=== PATIENT | male | born 1935 ===

== ENCOUNTER 2017-10-30 16:26 | Inpatient (IN) | payer MEDICARE ==
[2017-10-30] MEDS ORDERED: Albuterol-Ipratrop 3 mg / 0.5 (3 ml) UD ONE ×4 (16:45→18:21)
[2017-10-30 17:11] LABS: BASO % 0.8 % (0.0-2.0); EOS % 0.5 % (0.0-4.0); HEMOGLOBIN 9.8 g/dL (12.0-18.0); LYMPH # 0.8 K/uL (1.0-4.3); LYMPH % 13.7 % (20.0-40.0); MEAN CELL VOLUME 95.9 fL (80.0-94.0); MEAN CORPUSCULAR HEMOGLOBIN 32.6 pg (27.0-31.0); MEAN PLATELET VOLUME 6.9 fL (7.2-11.7); MONO # 0.4 K/uL (0.0-0.8); MONO % 7.1 % (0.0-10.0); NEUT # 4.7 K/uL (1.8-7.0); NEUT % 77.9 % (50.0-75.0); RED CELL DISTRIBUTION WIDTH 16.1 % (11.5-14.5); WHITE BLOOD COUNT 6.1 K/uL (4.8-10.8)
[2017-10-30] MEDS ORDERED: Azithromycin 500 MG in Sodium Chloride 0.9% 250 ML IV STA (17:16)
[2017-10-30] MEDS ORDERED: cefTRIAXone IV 1 gm in Dextros 50 ML IV ONE (17:16)
[2017-10-30] MEDS ORDERED: Albuterol-Ipratrop 3 mg / 0.5 (3 ml) UD INH STA ×2 (17:16→18:11)
[2017-10-30] MEDS ORDERED: cefTRIAXone IV 1 gm in Dextros 50 ML IVPB ONE (17:25)
[2017-10-30 17:30] LABS: ALB/GLOB RATIO 0.8 (1.0-2.1); ALBUMIN 3.6 g/dL (3.5-5.0); CALCIUM 8.3 mg/dl (8.6-10.4)
[2017-10-30 17:35] LABS: CK-MB 1.6 ng/mL (0.0-3.38)
[2017-10-30 17:38] LABS: TROPONIN I 0.031 ng/mL (0.00-0.120)
--- NOTE | 2017-10-30 18:11 | C.PDOC ---
History Of Present Illness 82 year old male presents to the ED for evaluation of cough, shortness of breath and lethargy which began 6 days ago. Patient underwent admission in August 2017 for COPD exacerbation. Patient denies fever, chills, chest pain. Time Seen by Provider: 10/30/17 16:55 Chief Complaint (Nursing): Respiratory Distress History Per: Patient History/Exam Limitations: no limitations Onset/Duration Of Symptoms: Days (6) Current Symptoms Are (Timing): Still Present Current Respiratory Medications: See Home Med List Associated Symptoms: denies: Fever, Chills, Chest Pain Additional History Per: Patient Past Medical History Reviewed: Historical Data, Nursing Documentation, Vital Signs Vital Signs: Last Vital Signs Temp 99.5 F 10/30/17 16:35 Pulse 106 H 10/30/17 16:35 Resp 35 H 10/30/17 17:07 BP 155/72 H 10/30/17 16:35 Pulse Ox 95 10/30/17 18:11 - Medical History PMH: Arthritis, COPD, HTN, Hyperlipidemia, Chronic Kidney Disease Surgical History: No Surg Hx - [facility] Procedures EXCISION OF PELVIC SUBCU/FASCIA, OPEN APPROACH (09/06/17) SUPPLEMENT L INGUINAL REGION WITH SYNTH SUB, OPEN APPROACH (09/06/17) Family History: States: Unknown Family Hx - Social History Hx Alcohol Use: No Hx Substance Use: No - Immunization History Hx Tetanus Toxoid Vaccination: No Hx Influenza Vaccination: Yes Hx Pneumococcal Vaccination: Yes Review Of Systems Constitutional: Positive for: Other (lethargy ). Negative for: Fever, Chills Cardiovascular: Negative for: Chest Pain Respiratory: Positive for: Cough, Shortness of Breath Physical Exam - Physical Exam Appears: Non-toxic, Chronically Ill, Other (in mild respiratory distress, wasted ) Skin: Normal Color, Warm, Dry Head: Atraumatic, Normacephalic Eye(s): bilateral: Normal Inspection Ear(s): Bilateral: Normal Nose: Normal, No Discharge Oral Mucosa: Moist Throat: Normal, No Erythema, No Exudate Neck: Supple Chest: Symmetrical, No Deformity, No Tenderness Cardiovascular: Rhythm Regular, No Murmur Respiratory: No Rales, Rhonchi (scattered ), Wheezing (scattered ) Gastrointestinal/Abdominal: Soft, No Tenderness, No Guarding, No Rebound Extremity: Normal ROM, Capillary Refill (less than 2 seconds ), No Swelling Neurological/Psych: Oriented x3, Normal Speech, Normal Cognition ED Course And Treatment - Laboratory Results Result Diagrams: 10/30/17 17:08 10/30/17 17:08 Lab Interpretation: Normal (trop/bnp neg.) ECG: Interpreted By Me ECG Rhythm: Sinus Rhythm ECG Interpretation: Normal O2 Sat by Pulse Oximetry: 95 (on RA) Pulse Ox Interpretation: Abnormal (probably baseline) - Radiology CXR: Interpreted by Me CXR Interpretation: Yes: Infiltrates (+ b/l lower lobe infiltrates) Progress Note: abx, solumedrol/duonebs Reevaluation Time: 18:10 Reassessment Condition: Improved - Physician Consult Information Outcome Of Conversation: 1800: d/w Dr. Cifuentes- prior PMD (though Dr. Miranda listed as PMD) ok to admit. Disposition Doctor Will See Patient In The: Hospital Counseled Patient/Family Regarding: Studies Performed, Diagnosis - Disposition Disposition: HOSPITALIZED Disposition Time: 18:11 Condition: FAIR Forms: [employer] (Malay) - Clinical Impression Clinical Impression: COPD (chronic obstructive pulmonary disease) - Scribe Statement The provider has reviewed the documentation as recorded by the Scribe (Jaky Carrillo) Provider Attestation: All medical record entries made by the Scribe were at my direction and personally dictated by me. I have reviewed the chart and agree that the record accurately reflects my personal performance of the history, physical exam, medical decision making, and the department course for this patient. I have also personally directed, reviewed, and agree with the discharge instructions and disposition.
[2017-10-30] MEDS ORDERED: Ipratropium 0.02% Inhal Soln (0.5 mg/2.5 ml) UD IH ONE (18:21)
[2017-10-31] MEDS: Azithromycin 500 MG in Sodium Chloride 0.9% 250 ML IVPB SCH (09:38)
[2017-10-31] MEDS: Pantoprazole 40 mg EC Tab PO SCH (09:39)
[2017-10-31] MEDS: (Novolin R) Insulin Human Regular 100 units/ml vial SC SCH ×4 (09:39→21:24)
[2017-10-31] MEDS: Enoxaparin 40 mg Syringe SC SCH (09:40)
[2017-10-31] MEDS ORDERED: LISINOPRIL PO SCH (10:00)
[2017-10-31] MEDS ORDERED: [UNRECOGNIZED DRUG - OTHER] PO SCH (10:00)
[2017-10-31] MEDS ORDERED: HYDROCHLOROTHIAZIDE PO SCH (10:00)
[2017-10-31] MEDS: Albuterol-Ipratrop 3 mg / 0.5 (3 ml) UD IH SCH ×3 (11:34→20:14)
--- NOTE | 2017-10-31 11:56 | RAD ---
PROCEDURE: CHEST RADIOGRAPH, 1 VIEW HISTORY: SOB COMPARISON: None available. FINDINGS: LUNGS: Hyperinflation with coarsened/ increased interstitial markings and possible underlying fibrosis. Findings may represent COPD or and or emphysema. Bibasilar atelectasis/ scarring. . PLEURA: No pneumothorax or pleural fluid seen. CARDIOVASCULAR: Normal. OSSEOUS STRUCTURES: No significant abnormalities. VISUALIZED UPPER ABDOMEN: Normal. OTHER FINDINGS: None. IMPRESSION: Hyperinflation with coarsened/ increased interstitial markings and possible underlying fibrosis. Findings may represent COPD or and or emphysema. Bibasilar atelectasis/ scarring. .
--- NOTE | 2017-10-31 23:57 | CP.PCM.HP ---
History of Present Illness - History of Present Illness History of Present Illness: History Of Present Illness 82 year old male presents to the ED for evaluation of cough, shortness of breath and lethargy which began 6 days ago. Patient underwent admission in August 2017 for COPD exacerbation. Patient denies fever, chills, chest pain. Past Patient History - Infectious Disease Hx of Infectious Diseases: None - Past Medical History & Family History Past Medical History?: Yes - Past Social History Smoking Status: Former Smoker - CARDIAC Hx Hypertension: Yes - PULMONARY Hx Chronic Obstructive Pulmonary Disease (COPD): Yes - HEENT Other/Comment: wears glasses - RENAL Hx Chronic Kidney Disease: Yes - ENDOCRINE/METABOLIC Hx Endocrine Disorders: Yes Hx Diabetes Mellitus Type 2: Yes - HEMATOLOGICAL/ONCOLOGICAL Hx Blood Transfusions: Yes - MUSCULOSKELETAL/RHEUMATOLOGICAL Hx Falls: No - GASTROINTESTINAL Hx Gastrointestinal Disorders: Yes Other/Comment: HERNIA 3 weeks ago - PSYCHIATRIC Hx Substance Use: No - SURGICAL HISTORY Hx Surgeries: Yes Hx Herniorrhaphy: Yes (RIGHT INGUINAL) Other/Comment: patient didnt give no further information at this time - ANESTHESIA Hx Anesthesia: Yes Hx Anesthesia Reactions: No Hx Malignant Hyperthermia: No Has any member of the family had a problem w/ anesthesia?: No Meds Allergies/Adverse Reactions: Allergies Allergy/AdvReac Type Severity Reaction Status Date / Time aspirin Allergy Severe PAIN Verified 10/31/17 03:36 Results - Vital Signs Recent Vital Signs: Last Vital Signs Temp 97.3 F L 10/31/17 15:00 Pulse 75 10/31/17 16:07 Resp 20 10/31/17 15:00 BP 122/62 10/31/17 15:00 Pulse Ox 96 10/31/17 15:00 - Labs Result Diagrams: 10/30/17 17:08 10/30/17 17:08 Labs: Laboratory Results - last 24 hr 10/31/17 10/31/17 10/31/17 07:02 12:15 17:06 POC Glucose (mg/dL) 325 H 289 H 220 H 10/31/17 21:20 POC Glucose (mg/dL) 224 H
[2017-11-01 07:06] LABS: IRON 58 ug/dL (49-181)
[2017-11-01 07:16] LABS: % IRON SATURATION 30 (20-55); TOTAL IRON BINDING CAPACITY 196 ug/dL (250-450)
[2017-11-01] MEDS: Albuterol-Ipratrop 3 mg / 0.5 (3 ml) UD IH SCH ×4 (07:37→19:25)
[2017-11-01] MEDS: (Novolin R) Insulin Human Regular 100 units/ml vial SC SCH ×4 (07:56→21:27)
[2017-11-01] MEDS: Enoxaparin 40 mg Syringe SC SCH (09:35)
[2017-11-01] MEDS: Azithromycin 500 MG in Sodium Chloride 0.9% 250 ML IVPB SCH (09:35)
[2017-11-01] MEDS: Pantoprazole 40 mg EC Tab PO SCH (09:37)
--- NOTE | 2017-11-01 12:26 | CARD ---
APPROVED REPORT EKG Measurement Heart [id number] <Conclusion> Normal sinus rhythm Nonspecific T wave abnormality Abnormal ECG
--- NOTE | 2017-11-01 16:56 | CP.PCM.CON ---
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 Patient denied fever, chills or chest pain in the ED. Received antibiotics, solumedrol and duonebs with improvement. He was admitted to Dr. Cifuentes's service. Today the patient was seen and examined at bedside on the med-surg floors. He reports that his breathing has improved and he has no complaints at this time. Wheezing was heard on auscultation and the patient was noticeably tremulous. PMHx: COPD, arthritis, HTN, HLD, CKD PSH: inguinal hernia repair Allergies: Aspirin SH: formerly worked in a [employer] for 29 years, 20+ year smoking hx quit in his early 40s, denies alcohol and drug use Assessment and Plan: 1. COPD - Saturatin-95% on 2L NC - CXR 10/31: hyperinflation with coarsened/increased interstitial markings and possible underlying fibrosis. - nebulizer treatments - continue with duonebs - continue IV antibiotics - ABG 2. ILD - continue solumedrol - consider repeat CT Chest Past Patient History - Infectious Disease Hx of Infectious Diseases: None - Past Medical History & Family History Past Medical History?: Yes - Past Social History Smoking Status: Former Smoker - CARDIAC Hx Hypertension: Yes - PULMONARY Hx Chronic Obstructive Pulmonary Disease (COPD): Yes - HEENT Other/Comment: wears glasses - RENAL Hx Chronic Kidney Disease: Yes - ENDOCRINE/METABOLIC Hx Endocrine Disorders: Yes Hx Diabetes Mellitus Type 2: Yes - HEMATOLOGICAL/ONCOLOGICAL Hx Blood Transfusions: Yes - MUSCULOSKELETAL/RHEUMATOLOGICAL Hx Falls: No - GASTROINTESTINAL Hx Gastrointestinal Disorders: Yes Other/Comment: HERNIA 3 weeks ago - PSYCHIATRIC Hx Substance Use: No - SURGICAL HISTORY Hx Surgeries: Yes Hx Herniorrhaphy: Yes (RIGHT INGUINAL) Other/Comment: patient didnt give no further information at this time - ANESTHESIA Hx Anesthesia: Yes Hx Anesthesia Reactions: No Hx Malignant Hyperthermia: No Has any member of the family had a problem w/ anesthesia?: No Meds Allergies/Adverse Reactions: Allergies Allergy/AdvReac Type Severity Reaction Status Date / Time aspirin Allergy Severe PAIN Verified 10/31/17 03:36 - Medications Medications: Current Medications Albuterol/Ipratropium (Duoneb 3 Mg/0.5 Mg (3 Ml) Ud) 3 ml IH RQID [facility] Last Admin: 11/01/17 11:08 Dose: 3 ml Amlodipine Besylate (Norvasc) 5 mg PO DAILY [facility] Last Admin: 11/01/17 09:36 Dose: 5 mg Doxazosin Mesylate (Cardura) 4 mg PO HS [facility] Last Admin: 10/31/17 21:24 Dose: 4 mg Enoxaparin Sodium (Lovenox) 40 mg SC DAILY [facility] Last Admin: 11/01/17 09:35 Dose: 40 mg Folic Acid (Folic Acid) 1 mg PO DAILY [facility] Last Admin: 11/01/17 09:36 Dose: 1 mg Glimepiride (Amaryl) 1 mg PO ACB [facility] Last Admin: 11/01/17 07:56 Dose: 1 mg Hydrochlorothiazide (Hydrodiuril) 25 mg PO DAILY [facility] Last Admin: 11/01/17 09:36 Dose: 25 mg Azithromycin 500 mg/ Sodium (Chloride) 250 mls @ 250 mls/hr IVPB DAILY [facility] PRN Reason: Protocol Last Admin: 11/01/17 09:35 Dose: 250 mls/hr Ceftriaxone Sodium 1 gm/ (Sodium Chloride) 100 mls @ 100 mls/hr IVPB Q24H [facility] PRN Reason: Protocol Last Admin: 11/01/17 12:25 Dose: 100 mls/hr Insulin Human Regular (Novolin R) 0 unit SC ACHS [facility] PRN Reason: Protocol Last Admin: 11/01/17 12:26 Dose: 4 unit Lisinopril (Zestril) 20 mg PO DAILY [facility] Last Admin: 11/01/17 09:36 Dose: 20 mg Methylprednisolone (Solu-Medrol) 60 mg IVP Q12H [facility] Last Admin: 11/01/17 09:36 Dose: 60 mg Pantoprazole Sodium (Protonix Ec Tab) 40 mg PO DAILY [facility] Last Admin: 11/01/17 09:37 Dose: 40 mg Rosuvastatin Calcium (Crestor) 10 mg PO HS [facility] Last Admin: 10/31/17 21:24 Dose: 10 mg Results - Vital Signs Recent Vital Signs: Last Vital Signs Temp 97.3 F L 11/01/17 16:00 Pulse 80 11/01/17 16:08 Resp 20 11/01/17 16:00 BP 131/64 11/01/17 16:00 Pulse Ox 93 L 11/01/17 16:00 - Labs Result Diagrams: 10/30/17 17:08 10/30/17 17:08 Labs: Laboratory Results - last 24 hr 10/31/17 10/31/17 11/01/17 17:06 21:20 06:45 POC Glucose (mg/dL) 220 H 224 H Iron 58 TIBC 196 L % Saturation 30 11/01/17 11/01/17 11/01/17 06:57 11:35 16:37 POC Glucose (mg/dL) 336 H 272 H 219 H Iron TIBC % Saturation
--- NOTE | 2017-11-02 01:34 | CP.PCM.PN ---
Subjective - Date & Time of Evaluation Date of Evaluation: 11/01/17 Time of Evaluation: 19:00 - Subjective Subjective: patient was seen and examined at bedside on the [facility] floors. He reports that his breathing has improved and he has no complaints at this time. Wheezing was heard on auscultation and the patient was noticeably tremulous. Objective - Vital Signs/Intake and Output Vital Signs (last 24 hours): Temp Pulse Resp BP Pulse Ox 97.3 F L 80 16 131/64 98 11/01/17 16:00 11/01/17 16:08 11/01/17 20:11 11/01/17 16:00 11/01/17 20:11 Intake and Output: 11/01/17 11/02/17 18:59 06:59 Intake Total 700 500 Balance 700 500 - Medications Medications: Current Medications Albuterol/Ipratropium (Duoneb 3 Mg/0.5 Mg (3 Ml) Ud) 3 ml IH RQID [facility] Last Admin: 11/01/17 19:25 Dose: 3 ml Amlodipine Besylate (Norvasc) 5 mg PO DAILY [facility] Last Admin: 11/01/17 09:36 Dose: 5 mg Doxazosin Mesylate (Cardura) 4 mg PO HS [facility] Last Admin: 11/01/17 21:28 Dose: 4 mg Enoxaparin Sodium (Lovenox) 40 mg SC DAILY [facility] Last Admin: 11/01/17 09:35 Dose: 40 mg Folic Acid (Folic Acid) 1 mg PO DAILY [facility] Last Admin: 11/01/17 09:36 Dose: 1 mg Glimepiride (Amaryl) 1 mg PO ACB [facility] Last Admin: 11/01/17 07:56 Dose: 1 mg Hydrochlorothiazide (Hydrodiuril) 25 mg PO DAILY [facility] Last Admin: 11/01/17 09:36 Dose: 25 mg Azithromycin 500 mg/ Sodium (Chloride) 250 mls @ 250 mls/hr IVPB DAILY [facility] PRN Reason: Protocol Last Admin: 11/01/17 09:35 Dose: 250 mls/hr Ceftriaxone Sodium 1 gm/ (Sodium Chloride) 100 mls @ 100 mls/hr IVPB Q24H [facility] PRN Reason: Protocol Last Admin: 11/01/17 12:25 Dose: 100 mls/hr Insulin Human Regular (Novolin R) 0 unit SC ACHS [facility] PRN Reason: Protocol Last Admin: 11/01/17 21:27 Dose: Not Given Lisinopril (Zestril) 20 mg PO DAILY [facility] Last Admin: 11/01/17 09:36 Dose: 20 mg Methylprednisolone (Solu-Medrol) 60 mg IVP Q12H [facility] Last Admin: 11/01/17 21:28 Dose: 60 mg Pantoprazole Sodium (Protonix Ec Tab) 40 mg PO DAILY [facility] Last Admin: 11/01/17 09:37 Dose: 40 mg Rosuvastatin Calcium (Crestor) 10 mg PO HS [facility] Last Admin: 11/01/17 21:28 Dose: 10 mg - Labs Labs: 10/30/17 17:08 10/30/17 17:08 Assessment and Plan (1) COPD (chronic obstructive pulmonary disease) Assessment & Plan: 1. COPD - Saturatin-95% on 2L NC - CXR 5/6: hyperinflation with coarsened/increased interstitial markings and possible underlying fibrosis. - nebulizer treatments - continue with duonebs - continue IV antibiotics - ABG 2. ILD - continue solumedrol - consider repeat CT Chest Status: Acute (2) Cardiomyopathy Status: Acute (3) ILD (interstitial lung disease) Status: Acute (4) Renal insufficiency Status: Acute
[2017-11-02] MEDS: Albuterol-Ipratrop 3 mg / 0.5 (3 ml) UD IH SCH ×4 (07:42→20:29)
[2017-11-02] MEDS: (Novolin R) Insulin Human Regular 100 units/ml vial SC SCH ×4 (08:10→21:14)
[2017-11-02] MEDS: Azithromycin 500 MG in Sodium Chloride 0.9% 250 ML IVPB SCH (10:50)
[2017-11-02] MEDS: Pantoprazole 40 mg EC Tab PO SCH (10:52)
[2017-11-02] MEDS: Enoxaparin 30 mg Syringe SC SCH (10:53)
--- NOTE | 2017-11-02 16:41 | CP.PCM.PN ---
Subjective - Date & Time of Evaluation Date of Evaluation: 11/02/17 Time of Evaluation: 10:00 - Subjective Subjective: Patient seen and examined at bedside. He reports that his breathing has improved and again he has no complaints at this time. Wheezing was heard on auscultation but improved. Assessment and Plan: 1. COPD - Saturatin% on 2L NC - CXR 5/6: hyperinflation with coarsened/increased interstitial markings and possible underlying fibrosis. - continue with duonebs - continue IV antibiotics - ABG 2. ILD - continue solumedrol - consider repeat CT Chest Objective - Vital Signs/Intake and Output Vital Signs (last 24 hours): Temp Pulse Resp BP Pulse Ox 97.5 F L 89 18 136/64 96 11/02/17 07:25 11/02/17 12:00 11/02/17 07:25 11/02/17 07:25 11/02/17 07:25 Intake and Output: 11/02/17 11/02/17 06:59 18:59 Intake Total 500 750 Output Total 250 Balance 250 750 - Medications Medications: Current Medications Albuterol/Ipratropium (Duoneb 3 Mg/0.5 Mg (3 Ml) Ud) 3 ml IH RQID [facility] Last Admin: 11/02/17 16:11 Dose: 3 ml Doxazosin Mesylate (Cardura) 4 mg PO HS [facility] Last Admin: 11/01/17 21:28 Dose: 4 mg Enoxaparin Sodium (Lovenox) 30 mg SC DAILY [facility] Last Admin: 11/02/17 10:53 Dose: 30 mg Folic Acid (Folic Acid) 1 mg PO DAILY [facility] Last Admin: 11/02/17 10:52 Dose: 1 mg Glimepiride (Amaryl) 1 mg PO ACB [facility] Last Admin: 11/02/17 08:09 Dose: 1 mg Hydrochlorothiazide (Hydrodiuril) 25 mg PO DAILY [facility] Last Admin: 11/02/17 10:52 Dose: 25 mg Azithromycin 500 mg/ Sodium (Chloride) 250 mls @ 250 mls/hr IVPB DAILY [facility] PRN Reason: Protocol Last Admin: 11/02/17 10:50 Dose: 250 mls/hr Ceftriaxone Sodium 1 gm/ (Sodium Chloride) 100 mls @ 100 mls/hr IVPB Q24H [facility] PRN Reason: Protocol Last Admin: 11/02/17 12:59 Dose: 100 mls/hr Insulin Human Regular (Novolin R) 0 unit SC ACHS [facility] PRN Reason: Protocol Last Admin: 11/02/17 12:59 Dose: 8 unit Lisinopril (Zestril) 20 mg PO DAILY [facility] Last Admin: 11/02/17 10:52 Dose: 20 mg Methylprednisolone (Solu-Medrol) 60 mg IVP Q12H [facility] Last Admin: 11/02/17 10:52 Dose: 60 mg Pantoprazole Sodium (Protonix Ec Tab) 40 mg PO DAILY [facility] Last Admin: 11/02/17 10:52 Dose: 40 mg Rosuvastatin Calcium (Crestor) 10 mg PO HS [facility] Last Admin: 11/01/17 21:28 Dose: 10 mg - Labs Labs: 10/30/17 17:08 10/30/17 17:08
--- NOTE | 2017-11-02 22:29 | CP.PCM.PN ---
Subjective - Date & Time of Evaluation Date of Evaluation: 11/02/17 Time of Evaluation: 18:00 - Subjective Subjective: Pt seen and examined at bedside Objective - Vital Signs/Intake and Output Vital Signs (last 24 hours): Temp Pulse Resp BP Pulse Ox 97.6 F 86 20 123/57 L 100 11/02/17 15:00 11/02/17 16:30 11/02/17 15:00 11/02/17 15:00 11/02/17 15:00 Intake and Output: 11/02/17 11/03/17 18:59 06:59 Intake Total 750 Output Total 750 Balance 750 -750 - Medications Medications: Current Medications Albuterol/Ipratropium (Duoneb 3 Mg/0.5 Mg (3 Ml) Ud) 3 ml IH RQID [facility] Last Admin: 11/02/17 20:29 Dose: 3 ml Doxazosin Mesylate (Cardura) 4 mg PO HS [facility] Last Admin: 11/02/17 21:13 Dose: 4 mg Enoxaparin Sodium (Lovenox) 30 mg SC DAILY [facility] Last Admin: 11/02/17 10:53 Dose: 30 mg Folic Acid (Folic Acid) 1 mg PO DAILY [facility] Last Admin: 11/02/17 10:52 Dose: 1 mg Glimepiride (Amaryl) 1 mg PO ACB [facility] Last Admin: 11/02/17 08:09 Dose: 1 mg Hydrochlorothiazide (Hydrodiuril) 25 mg PO DAILY [facility] Last Admin: 11/02/17 10:52 Dose: 25 mg Azithromycin 500 mg/ Sodium (Chloride) 250 mls @ 250 mls/hr IVPB DAILY [facility] PRN Reason: Protocol Last Admin: 11/02/17 10:50 Dose: 250 mls/hr Ceftriaxone Sodium 1 gm/ (Sodium Chloride) 100 mls @ 100 mls/hr IVPB Q24H [facility] PRN Reason: Protocol Last Admin: 11/02/17 12:59 Dose: 100 mls/hr Insulin Human Regular (Novolin R) 0 unit SC ACHS [facility] PRN Reason: Protocol Last Admin: 11/02/17 21:14 Dose: Not Given Lisinopril (Zestril) 20 mg PO DAILY [facility] Last Admin: 11/02/17 10:52 Dose: 20 mg Methylprednisolone (Solu-Medrol) 60 mg IVP Q12H [facility] Last Admin: 11/02/17 21:13 Dose: 60 mg Pantoprazole Sodium (Protonix Ec Tab) 40 mg PO DAILY [facility] Last Admin: 11/02/17 10:52 Dose: 40 mg Rosuvastatin Calcium (Crestor) 10 mg PO HS [facility] Last Admin: 11/02/17 21:13 Dose: 10 mg - Labs Labs: 10/30/17 17:08 10/30/17 17:08 Assessment and Plan (1) COPD (chronic obstructive pulmonary disease) Status: Acute (2) Cardiomyopathy Status: Acute (3) ILD (interstitial lung disease) Status: Acute (4) Renal insufficiency Status: Acute
[2017-11-03] MEDS: Albuterol-Ipratrop 3 mg / 0.5 (3 ml) UD IH SCH ×4 (07:54→20:16)
[2017-11-03] MEDS: (Novolin R) Insulin Human Regular 100 units/ml vial SC SCH ×4 (08:30→21:04)
[2017-11-03] MEDS: Pantoprazole 40 mg EC Tab PO SCH (10:28)
[2017-11-03] MEDS: Enoxaparin 30 mg Syringe SC SCH (10:29)
[2017-11-03] MEDS: Azithromycin 500 MG in Sodium Chloride 0.9% 250 ML IVPB SCH (10:30)
--- NOTE | 2017-11-03 15:36 | CP.PCM.PN ---
Subjective - Date & Time of Evaluation Date of Evaluation: 11/03/17 Time of Evaluation: 10:00 - Subjective Subjective: Patient seen and examined at bedside. He reports that his breathing has improved and again he has no complaints at this time. Patient appears to be improving and reports that he was able to ambulate with physical therapy around the unit this morning. Assessment and Plan: 1. COPD - Saturatin%-100% on 2L NC - CXR /6: hyperinflation with coarsened/increased interstitial markings and possible underlying fibrosis. - nebulizer treatments - continue IV antibiotics - ABG 2. ILD - continue solumedrol Objective - Vital Signs/Intake and Output Vital Signs (last 24 hours): Temp Pulse Resp BP Pulse Ox 97.6 F 85 18 142/66 97 11/03/17 07:30 11/03/17 12:00 11/03/17 07:30 11/03/17 09:40 11/03/17 07:30 Intake and Output: 11/03/17 11/03/17 06:59 18:59 Output Total 750 Balance -750 - Medications Medications: Current Medications Albuterol/Ipratropium (Duoneb 3 Mg/0.5 Mg (3 Ml) Ud) 3 ml IH RQID [facility] Last Admin: 11/03/17 11:09 Dose: 3 ml Doxazosin Mesylate (Cardura) 4 mg PO HS [facility] Last Admin: 11/02/17 21:13 Dose: 4 mg Enoxaparin Sodium (Lovenox) 30 mg SC DAILY [facility] Last Admin: 11/03/17 10:29 Dose: 30 mg Folic Acid (Folic Acid) 1 mg PO DAILY [facility] Last Admin: 11/03/17 10:28 Dose: 1 mg Glimepiride (Amaryl) 1 mg PO ACB [facility] Last Admin: 11/03/17 08:30 Dose: 1 mg Hydrochlorothiazide (Hydrodiuril) 25 mg PO DAILY [facility] Last Admin: 11/03/17 10:28 Dose: 25 mg Azithromycin 500 mg/ Sodium (Chloride) 250 mls @ 250 mls/hr IVPB DAILY [facility] PRN Reason: Protocol Last Admin: 11/03/17 10:30 Dose: 250 mls/hr Ceftriaxone Sodium 1 gm/ (Sodium Chloride) 100 mls @ 100 mls/hr IVPB Q24H [facility] PRN Reason: Protocol Last Admin: 11/03/17 12:31 Dose: 100 mls/hr Insulin Human Regular (Novolin R) 0 unit SC ACHS [facility] PRN Reason: Protocol Last Admin: 11/03/17 12:30 Dose: 4 unit Lisinopril (Zestril) 20 mg PO DAILY [facility] Last Admin: 11/03/17 10:28 Dose: 20 mg Methylprednisolone (Solu-Medrol) 60 mg IVP Q12H [facility] Last Admin: 11/03/17 10:29 Dose: 60 mg Pantoprazole Sodium (Protonix Ec Tab) 40 mg PO DAILY [facility] Last Admin: 11/03/17 10:28 Dose: 40 mg Rosuvastatin Calcium (Crestor) 10 mg PO HS [facility] Last Admin: 11/02/17 21:13 Dose: 10 mg - Labs Labs: 10/30/17 17:08 10/30/17 17:08
[2017-11-04 01:24] VITALS: RESP 20
--- NOTE | 2017-11-04 04:41 | CP.PCM.PN ---
Subjective - Date & Time of Evaluation Date of Evaluation: 11/03/17 Time of Evaluation: 18:00 - Subjective Subjective: Pt seen and examined, less short of breath, afberile Objective - Vital Signs/Intake and Output Vital Signs (last 24 hours): Temp Pulse Resp BP Pulse Ox 97.6 F 92 H 20 151/72 H 97 11/03/17 23:10 11/03/17 23:41 11/03/17 23:10 11/03/17 23:10 11/03/17 23:10 Intake and Output: 11/03/17 11/04/17 18:59 06:59 Intake Total 750 Output Total 600 Balance 150 - Medications Medications: Current Medications Albuterol/Ipratropium (Duoneb 3 Mg/0.5 Mg (3 Ml) Ud) 3 ml IH RQID [facility] Last Admin: 11/03/17 20:16 Dose: 3 ml Doxazosin Mesylate (Cardura) 4 mg PO HS [facility] Last Admin: 11/03/17 21:02 Dose: 4 mg Enoxaparin Sodium (Lovenox) 30 mg SC DAILY [facility] Last Admin: 11/03/17 10:29 Dose: 30 mg Folic Acid (Folic Acid) 1 mg PO DAILY [facility] Last Admin: 11/03/17 10:28 Dose: 1 mg Glimepiride (Amaryl) 1 mg PO ACB [facility] Last Admin: 11/03/17 08:30 Dose: 1 mg Hydrochlorothiazide (Hydrodiuril) 25 mg PO DAILY [facility] Last Admin: 11/03/17 10:28 Dose: 25 mg Azithromycin 500 mg/ Sodium (Chloride) 250 mls @ 250 mls/hr IVPB DAILY [facility] PRN Reason: Protocol Last Admin: 11/03/17 10:30 Dose: 250 mls/hr Ceftriaxone Sodium 1 gm/ (Sodium Chloride) 100 mls @ 100 mls/hr IVPB Q24H [facility] PRN Reason: Protocol Last Admin: 11/03/17 12:31 Dose: 100 mls/hr Insulin Human Regular (Novolin R) 0 unit SC ACHS [facility] PRN Reason: Protocol Last Admin: 11/03/17 21:04 Dose: Not Given Lisinopril (Zestril) 20 mg PO DAILY [facility] Last Admin: 11/03/17 10:28 Dose: 20 mg Methylprednisolone (Solu-Medrol) 60 mg IVP Q12H [facility] Last Admin: 11/03/17 21:01 Dose: 60 mg Pantoprazole Sodium (Protonix Ec Tab) 40 mg PO DAILY [facility] Last Admin: 11/03/17 10:28 Dose: 40 mg Rosuvastatin Calcium (Crestor) 10 mg PO HS [facility] Last Admin: 11/03/17 21:01 Dose: 10 mg - Labs Labs: 10/30/17 17:08 10/30/17 17:08 - Constitutional Appears: No Acute Distress - Head Exam Head Exam: ATRAUMATIC, NORMAL INSPECTION, NORMOCEPHALIC - Eye Exam Eye Exam: EOMI, Normal appearance, PERRL Pupil Exam: NORMAL ACCOMODATION, PERRL - Respiratory Exam Respiratory Exam: Clear to Ausculation Bilateral, NORMAL BREATHING PATTERN - Cardiovascular Exam Cardiovascular Exam: REGULAR RHYTHM, +S1, +S2. absent: Murmur - GI/Abdominal Exam GI & Abdominal Exam: Soft, Normal Bowel Sounds. absent: Tenderness - Rectal Exam Rectal Exam: Deferred Assessment and Plan (1) COPD (chronic obstructive pulmonary disease) Status: Acute (2) Cardiomyopathy Status: Acute (3) ILD (interstitial lung disease) Status: Acute (4) Renal insufficiency Status: Acute
[2017-11-04] MEDS: Albuterol-Ipratrop 3 mg / 0.5 (3 ml) UD IH SCH ×3 (07:42→15:47)
[2017-11-04] MEDS: (Novolin R) Insulin Human Regular 100 units/ml vial SC SCH ×2 (08:30→12:28)
[2017-11-04] MEDS: Azithromycin 500 MG in Sodium Chloride 0.9% 250 ML IVPB SCH (11:00)
[2017-11-04] MEDS: Enoxaparin 30 mg Syringe SC SCH (11:00)
[2017-11-04] MEDS: Pantoprazole 40 mg EC Tab PO SCH (11:00)
--- NOTE | 2017-11-04 12:33 | CP.PCM.PN ---
Subjective - Date & Time of Evaluation Date of Evaluation: 11/04/17 Time of Evaluation: 12:26 - Subjective Subjective: PT SEEN AND EVAL'D BY DR. SCHREIBER; CLEARED FOR D/C HOME TODAY. PT FOR ABG TO EVALUATE FOR HOME O2, HOWEVER, HE IS REFUSING TO HAVE ABG DONE (STATING "IT HURTS TOO MUCH") AND REFUSING HOME O2 (STATING "I DON'T NEED IT, I'M FINE WITHOUT IT, AND I DON'T WANT THAT TANK IN MY HOME"). I DISCUSSED AT LENGTH WITH THE PT BENEFITS OF HOME O2 IF HE QUALIFIES FOR IT, HOWEVER, HE REPEATEDLY DENIES. I HAVE MADE DR. SCHREIBER OF THIS. PT TO BE D/C HOME THIS AFTERNOON AND WILL F/U WITH DR. SCHREIBER IN THE OFFICE IN 1 WEEK. PT STATES HE HAS ALL HIS HOME MEDS; RX FOR PO ABX, FLORASTOR AND MEDROL PACK SENT TO PT'S PHARMACY. NO FURTHER ORDERS. -FOLLOW UP WITH DR. SCHREIBER IN THE OFFICE WITHIN 1 WEEK---CALL THE OFFICE FOR AN APPOINTMENT TIME. -FOLLOW UP WITH DR. PEARSON OR YOUR LUNG DOCTOR IN THE OFFICE WITHIN 2-3 WEEKS--- CALL THE OFFICE FOR AN APPOINTMENT TIME. -CONTINUE HOME MEDICATIONS USUAL. -NEW PRESCRIPTIONS INCLUDE: 1) MEDROL--STEROID FOR YOUR BREATHING--FOLLOW THE DIRECTIONS ON THE BOX UNTIL YOU COMPLETE THE STEROID. 2) AMOXIL 500 MG (ANTIBIOTIC) TAKE TWICE A DAY (MORNING AND EVENING) FOR 7 DAYS. 3) FLORASTOR (VITAMIN FOR YOUR STOMACH WHILE ON ANTIBIOTICS) TAKE TWICE A DAY (MORNING AND EVENING) FOR 7 DAYS. -FOR FURTHER CONCERNS OR QUESTIONS, CONTACT DR. SCHREIBER'S OFFICE. Objective - Vital Signs/Intake and Output Vital Signs (last 24 hours): Temp Pulse Resp BP Pulse Ox 98.2 F 99 H 20 143/71 95 11/04/17 09:13 11/04/17 11:00 11/04/17 09:13 11/04/17 11:00 11/04/17 09:13 - Medications Medications: Current Medications Albuterol/Ipratropium (Duoneb 3 Mg/0.5 Mg (3 Ml) Ud) 3 ml IH RQID [facility] Last Admin: 11/04/17 11:16 Dose: 3 ml Doxazosin Mesylate (Cardura) 4 mg PO HS [facility] Last Admin: 11/03/17 21:02 Dose: 4 mg Enoxaparin Sodium (Lovenox) 30 mg SC DAILY [facility] Last Admin: 11/04/17 11:00 Dose: 30 mg Folic Acid (Folic Acid) 1 mg PO DAILY [facility] Last Admin: 11/04/17 11:00 Dose: 1 mg Glimepiride (Amaryl) 1 mg PO ACB [facility] Last Admin: 11/04/17 08:46 Dose: 1 mg Hydrochlorothiazide (Hydrodiuril) 25 mg PO DAILY [facility] Last Admin: 11/04/17 11:00 Dose: 25 mg Azithromycin 500 mg/ Sodium (Chloride) 250 mls @ 250 mls/hr IVPB DAILY [facility] PRN Reason: Protocol Last Admin: 11/04/17 11:00 Dose: 250 mls/hr Ceftriaxone Sodium 1 gm/ (Sodium Chloride) 100 mls @ 100 mls/hr IVPB Q24H [facility] PRN Reason: Protocol Last Admin: 11/03/17 12:31 Dose: 100 mls/hr Insulin Human Regular (Novolin R) 0 unit SC [facility] PRN Reason: Protocol Last Admin: 11/04/17 08:30 Dose: 6 unit Lisinopril (Zestril) 20 mg PO DAILY [facility] Last Admin: 11/04/17 11:07 Dose: 20 mg Methylprednisolone (Solu-Medrol) 60 mg IVP Q12H [facility] Last Admin: 11/04/17 11:00 Dose: 60 mg Pantoprazole Sodium (Protonix Ec Tab) 40 mg PO DAILY [facility] Last Admin: 11/04/17 11:00 Dose: 40 mg Rosuvastatin Calcium (Crestor) 10 mg PO HS [facility] Last Admin: 11/03/17 21:01 Dose: 10 mg - Labs Labs: 10/30/17 17:08 10/30/17 17:08
--- NOTE | 2017-11-04 15:57 | CP.PCM.PN ---
Subjective - Date & Time of Evaluation Date of Evaluation: 11/04/17 Time of Evaluation: 08:00 - Subjective Subjective: patient seen and examined Patient states breathing is much improved Does not want home oxygen Able to walk without shortness of breath Objective - Vital Signs/Intake and Output Vital Signs (last 24 hours): Temp Pulse Resp BP Pulse Ox 98.2 F 100 H 20 143/71 95 11/04/17 09:13 11/04/17 12:00 11/04/17 09:13 11/04/17 11:00 11/04/17 09:13 Intake and Output: 11/04/17 11/04/17 06:59 18:59 Intake Total 750 Output Total 700 Balance 50 - Medications Medications: Current Medications Albuterol/Ipratropium (Duoneb 3 Mg/0.5 Mg (3 Ml) Ud) 3 ml IH RQID [facility] Last Admin: 11/04/17 15:47 Dose: 3 ml Doxazosin Mesylate (Cardura) 4 mg PO HS [facility] Last Admin: 11/03/17 21:02 Dose: 4 mg Enoxaparin Sodium (Lovenox) 30 mg SC DAILY [facility] Last Admin: 11/04/17 11:00 Dose: 30 mg Folic Acid (Folic Acid) 1 mg PO DAILY [facility] Last Admin: 11/04/17 11:00 Dose: 1 mg Glimepiride (Amaryl) 1 mg PO ACB [facility] Last Admin: 11/04/17 08:46 Dose: 1 mg Hydrochlorothiazide (Hydrodiuril) 25 mg PO DAILY [facility] Last Admin: 11/04/17 11:00 Dose: 25 mg Azithromycin 500 mg/ Sodium (Chloride) 250 mls @ 250 mls/hr IVPB DAILY [facility] PRN Reason: Protocol Last Admin: 11/04/17 11:00 Dose: 250 mls/hr Ceftriaxone Sodium 1 gm/ (Sodium Chloride) 100 mls @ 100 mls/hr IVPB Q24H [facility] PRN Reason: Protocol Last Admin: 11/04/17 13:00 Dose: 100 mls/hr Insulin Human Regular (Novolin R) 0 unit SC ACHS [facility] PRN Reason: Protocol Last Admin: 11/04/17 12:28 Dose: 3 unit Lisinopril (Zestril) 20 mg PO DAILY [facility] Last Admin: 11/04/17 11:07 Dose: 20 mg Methylprednisolone (Solu-Medrol) 60 mg IVP Q12H [facility] Last Admin: 11/04/17 11:00 Dose: 60 mg Pantoprazole Sodium (Protonix Ec Tab) 40 mg PO DAILY [facility] Last Admin: 11/04/17 11:00 Dose: 40 mg Rosuvastatin Calcium (Crestor) 10 mg PO HS [facility] Last Admin: 11/03/17 21:01 Dose: 10 mg - Labs Labs: 10/30/17 17:08 10/30/17 17:08 - Head Exam Head Exam: ATRAUMATIC, NORMOCEPHALIC - ENT Exam ENT Exam: Mucous Membranes Moist - Neck Exam Neck Exam: Normal Inspection - Respiratory Exam Respiratory Exam: Clear to Ausculation Bilateral - Cardiovascular Exam Cardiovascular Exam: REGULAR RHYTHM - GI/Abdominal Exam GI & Abdominal Exam: Soft, Normal Bowel Sounds - Extremities Exam Extremities Exam: Normal Inspection Assessment and Plan (1) COPD (chronic obstructive pulmonary disease) Assessment & Plan: continue prednisone Continue Ventolin as needed Follow up in the office Refusing home oxygen Status: Acute (2) ILD (interstitial lung disease) Status: Acute
[2017-11-04 16:24] VITALS: BP 133/74; PULSE 90; TEMP 97.5; O2SAT 93
--- NOTE | 2017-11-05 08:53 | CP.PCM.DIS ---
Provider - Provider Date of Admission: 10/30/17 22:02 Attending physician: Luis F Cifuentes MD Diagnosis - Discharge Diagnosis (1) COPD (chronic obstructive pulmonary disease) Status: Acute (2) Cardiomyopathy Status: Acute (3) ILD (interstitial lung disease) Status: Acute (4) Renal insufficiency Status: Acute Hospital Course - Lab Results Lab Results: Most Recent Lab Values WBC 6.1 K/uL (4.8-10.8) 10/30/17 17:08 RBC 3.00 Mil/uL (4.40-5.90) L 10/30/17 17:08 Hgb 9.8 g/dL (12.0-18.0) L 10/30/17 17:08 Hct 28.8 % (35.0-51.0) L 10/30/17 17:08 MCV 95.9 fL (80.0-94.0) H 10/30/17 17:08 MCH 32.6 pg (27.0-31.0) H 10/30/17 17:08 MCHC 34.0 g/dL (33.0-37.0) 10/30/17 17:08 RDW 16.1 % (11.5-14.5) H 10/30/17 17:08 Plt Count 229 K/uL (130-400) 10/30/17 17:08 MPV 6.9 fL (7.2-11.7) L 10/30/17 17:08 Neut % (Auto) 77.9 % (50.0-75.0) H 10/30/17 17:08 Lymph % (Auto) 13.7 % (20.0-40.0) L 10/30/17 17:08 [place] % (Auto) 7.1 % (0.0-10.0) 10/30/17 17:08 Eos % (Auto) 0.5 % (0.0-4.0) 10/30/17 17:08 Baso % (Auto) 0.8 % (0.0-2.0) 10/30/17 17:08 Neut # (Auto) 4.7 K/uL (1.8-7.0) 10/30/17 17:08 Lymph # (Auto) 0.8 K/uL (1.0-4.3) L 10/30/17 17:08 [place] # (Auto) 0.4 K/uL (0.0-0.8) 10/30/17 17:08 Eos # (Auto) 0.0 K/uL (0.0-0.7) 10/30/17 17:08 Baso # (Auto) 0.0 K/uL (0.0-0.2) 10/30/17 17:08 Sodium 144 mmol/L (132-148) 10/30/17 17:08 Potassium 4.7 mmol/L (3.6-5.2) 10/30/17 17:08 Chloride 108 mmol/L (98-107) H 10/30/17 17:08 Carbon Dioxide 20 mmol/L (22-30) L 10/30/17 17:08 Anion Gap 21 (10-20) H 10/30/17 17:08 BUN 56 mg/dL (9-20) H 10/30/17 17:08 Creatinine 2.9 mg/dL (0.8-1.5) H 10/30/17 17:08 Est GFR ( Amer) 25 10/30/17 17:08 Est GFR (Non-Af Amer) 21 10/30/17 17:08 POC Glucose (mg/dL) 232 mg/dL (65-110) H 11/04/17 17:20 Random Glucose 109 mg/dL (75-110) 10/30/17 17:08 Calcium 8.3 mg/dl (8.6-10.4) L 10/30/17 17:08 Iron 58 ug/dL (49-181) 11/01/17 06:45 TIBC 196 ug/dL (250-450) L 11/01/17 06:45 % Saturation 30 (20-55) 11/01/17 06:45 Total Bilirubin 0.4 mg/dL (0.2-1.3) 10/30/17 17:08 AST 38 U/L (17-59) 10/30/17 17:08 ALT 22 U/L (21-72) 10/30/17 17:08 Alkaline Phosphatase 75 U/L (38-126) 10/30/17 17:08 Total Creatine Kinase 70 U/L (55-170) 10/30/17 17:08 CK-MB (Mass) 1.60 ng/mL (0.0-3.38) 10/30/17 17:08 Troponin I 0.0310 ng/mL (0.00-0.120) 10/30/17 17:08 Total Protein 7.9 g/dL (6.3-8.3) 10/30/17 17:08 Albumin 3.6 g/dL (3.5-5.0) 10/30/17 17:08 Globulin 4.3 gm/dL (2.2-3.9) H 10/30/17 17:08 Albumin/Globulin Ratio 0.8 (1.0-2.1) L 10/30/17 17:08 - Hospital Course Hospital Course: patient seen and examined, is stable for discharge Patient states breathing is much improved Does not want home oxygen Able to walk without shortness of breath Discharge Exam - Head Exam Head Exam: ATRAUMATIC, NORMOCEPHALIC Discharge Plan - Discharge Medications Prescriptions: Amoxicillin [Amoxil 500 mg Cap] 500 mg PO Q12 #14 cap Saccharomyces Boulardi [Florastor] 250 mg PO Q12 #14 cap guaiFENesin [Robitussin] 100 mg PO Q6 PRN #8 oz PRN Reason: Cough - Follow Up Plan Condition: FAIR Disposition: HOME/ ROUTINE Instructions: Saccharomyces boulardii, Heart Healthy Diet, Pneumonia, Adult (DC ), Exacerbation of COPD, Medicines for Chronic Obstructive Pulmonary Disease ( COPD), Amoxicillin, Guaifenesin Additional Instructions: -FOLLOW UP WITH DR. CIFUENTES IN THE OFFICE WITHIN 1 WEEK---CALL THE OFFICE FOR AN APPOINTMENT TIME. -FOLLOW UP WITH DR. POST OR YOUR LUNG DOCTOR IN THE OFFICE WITHIN 2-3 WEEKS--- CALL THE OFFICE FOR AN APPOINTMENT TIME. -CONTINUE HOME MEDICATIONS USUAL. -NEW PRESCRIPTIONS INCLUDE: 1) MEDROL--STEROID FOR YOUR BREATHING--FOLLOW THE DIRECTIONS ON THE BOX UNTIL YOU COMPLETE THE STEROID. 2) AMOXIL 500 MG (ANTIBIOTIC) TAKE TWICE A DAY (MORNING AND EVENING) FOR 7 DAYS. 3) FLORASTOR (VITAMIN FOR YOUR STOMACH WHILE ON ANTIBIOTICS) TAKE TWICE A DAY (MORNING AND EVENING) FOR 7 DAYS. -FOR FURTHER CONCERNS OR QUESTIONS, CONTACT DR. CIFUENTES'S OFFICE. Referrals: Geovani Post MD [Staff Provider] - Luis F Cifuentes MD [Staff Provider] -
== END 2017-11-04 18:15 | disposition home or self-care (01) | DRG 197 ==
LOC: C.ER 16:26 → C.9E 22:02 → C.6T 22:36
PROVIDERS: ADMIT Internal Medicine; ATTEND Internal Medicine
DX: J84.9 Interstitial pulmonary disease, unspecified (principal); I42.9 Cardiomyopathy, unspecified; J44.9 Chronic obstructive pulmonary disease, unspecified; J84.10 Pulmonary fibrosis, unspecified; E11.22 Type 2 diabetes mellitus with diabetic chronic kidney disease; E78.5 Hyperlipidemia, unspecified; I12.9 Hypertensive chronic kidney disease with stage 1 through stage 4 chronic kidney disease, or unspecified chronic kidney disease; N18.9 Chronic kidney disease, unspecified; Z87.891 Personal history of nicotine dependence; Z79.4 Long term (current) use of insulin

== ENCOUNTER 2018-06-20 14:44 | Inpatient (IN) | payer MEDICARE ==
[2018-06-20 14:48] VITALS: BMI 18.1
--- NOTE | 2018-06-20 15:24 | C.PDOC ---
History Of Present Illness 82 years old male with PMHx of COPD presents to ED for complaints of shortness of breath, productive cough, and chills that began 2 weeks ago. Patient states he takes robitussin to treat the cough. Denies oxygen use at home. As per son, patient presents for evaluation of worse than usual cough associated with fever, chills, and chest congestion that began 3 days ago. Son states patient "always thinks symptoms have been there for 2 weeks." Son also reports that patient has multiple pumps, enhalers, and nebulizers at home but denies the use of oxygen. Time Seen by Provider: 06/20/18 15:01 Chief Complaint (Nursing): Shortness Of Breath History Per: Patient, Family (Son) History/Exam Limitations: no limitations Onset/Duration Of Symptoms: Days (3) Current Symptoms Are (Timing): Still Present Exacerbating Factor(s): Laying Flat Current Respiratory Medications: See Home Med List Associated Symptoms: Fever, Chills, Productive Cough Recent travel outside of the [place]: No Past Medical History Reviewed: Historical Data, Nursing Documentation, Vital Signs Vital Signs: Last Vital Signs Temp 98.8 F 06/20/18 15:00 Pulse 103 H 06/20/18 14:49 Resp 18 06/20/18 14:49 BP 131/64 06/20/18 14:49 Pulse Ox 92 L 06/20/18 14:49 - Medical History PMH: Arthritis, Bronchitis, COPD, HTN, Hyperlipidemia, Pneumonia (2x), Chronic Kidney Disease (stage 3 kidney) - [facility] Procedures EXCISION OF PELVIC SUBCU/FASCIA, OPEN APPROACH (09/06/17) SUPPLEMENT L INGUINAL REGION WITH SYNTH SUB, OPEN APPROACH (09/06/17) Family History: States: Unknown Family Hx - Social History Hx Alcohol Use: No (occasional) Hx Substance Use: No - Immunization History Hx Tetanus Toxoid Vaccination: No Hx Influenza Vaccination: Yes Hx Pneumococcal Vaccination: Yes Review Of Systems Constitutional: Positive for: Fever, Chills Respiratory: Positive for: Cough, Shortness of Breath Gastrointestinal: Negative for: Nausea, Vomiting, Diarrhea Skin: Negative for: Rash Neurological: Negative for: Weakness, Numbness Physical Exam - Physical Exam Appears: Non-toxic, No Acute Distress Skin: Normal Color, Warm, Dry, No Rash Head: Atraumatic, Normacephalic Eye(s): bilateral: Normal Inspection, PERRL, EOMI Oral Mucosa: Moist Neck: Normal ROM, Supple Chest: Symmetrical, No Tenderness Cardiovascular: Rhythm Regular, No Murmur Respiratory: Other (Increased marking right lower lung. Questionable infultrate ) Gastrointestinal/Abdominal: Normal Exam, Bowel Sounds (Active ), Soft, No Tenderness Extremity: Normal ROM Extremity: Bilateral: Atraumatic, Normal Color And Temperature, Normal ROM Pulses: Left Radial: Normal, Right Radial: Normal Neurological/Psych: Oriented x3, Normal Speech Gait: Steady ED Course And Treatment - Laboratory Results Result Diagrams: 06/20/18 15:22 06/20/18 15:22 O2 Sat by Pulse Oximetry: 92 (RA) Pulse Ox Interpretation: Abnormal - Other Rad CXR X-Ray: Viewed By Me, Read By Radiologist Interpretation: Date of service: 06/20/2018. PROCEDURE: CHEST RADIOGRAPH, 1 VIEW. HISTORY: Pneumonia. COMPARISON: 10/30/2017. FINDINGS: LUNGS: Right basilar infiltrate. Suspicious for pneumonia. Probable subsegmental atelectasis at left base. PLEURA: No pneumothorax or pleural fluid seen. CARDIOVASCULAR: There is atherosclerotic calcification of the thoracic aorta normal heart size. No congestive change. OSSEOUS STRUCTURES: No significant abnormalities. VISUALIZED UPPER ABDOMEN: Normal. OTHER FINDINGS: None. IMPRESSION: Right basilar infiltrate. Possible pneumonia. Progress - Re-Evaluation Re-evaluation Note: 06/20/18 16:14 D/W DR CANALES C/F PMD WILL ADMIT - Data Reviewed Data Reviewed: Lab, Diagnostic imaging, Old records Medical Decision Making Medical Decision Making: Plan: * Solu-medrol * Albuterol nebulizer treatment/ peak flow * O2 via nasal cannula * Blood work * CXR * Urinalysis * Flu AB swab Disposition Counseled Patient/Family Regarding: Studies Performed, Diagnosis - Disposition Disposition: HOSPITALIZED Disposition Time: 16:15 Condition: STABLE - POA Present On Arrival: None - Clinical Impression Clinical Impression: COPD exacerbation, Acute on chronic renal insufficiency, Pneumonia - Scribe Statement The provider has reviewed the documentation as recorded by the Shannan Mtz All medical record entries made by the Napoleonibludmila were at my direction and personally dictated by me. I have reviewed the chart and agree that the record accurately reflects my personal performance of the history, physical exam, medical decision making, and the department course for this patient. I have also personally directed, reviewed, and agree with the discharge instructions and disposition.
[2018-06-20 15:28] LABS: BASO % 0.3 % (0.0-2.0); EOS # 0.1 K/uL (0.0-0.7); EOS % 0.9 % (0.0-4.0); HEMOGLOBIN 8.2 g/dL (12.0-18.0); LYMPH # 0.4 K/uL (1.0-4.3); LYMPH % 6.9 % (20.0-40.0); MEAN CELL VOLUME 102.4 fL (80.0-94.0); MEAN CORPUSCULAR HEMOGLOBIN 35.3 pg (27.0-31.0); MEAN CORPUSCULAR HGB CONC 34.5 g/dL (33.0-37.0); MEAN PLATELET VOLUME 6.9 fL (7.2-11.7); MONO # 0.7 K/uL (0.0-0.8); MONO % 10.8 % (0.0-10.0); NEUT # 5.2 K/uL (1.8-7.0); NEUT % 81.1 % (50.0-75.0); PLATELET COUNT 210 K/uL (130-400); RBC 2.32 Mil/uL (4.40-5.90); RED CELL DISTRIBUTION WIDTH 13.1 % (11.5-14.5); WHITE BLOOD COUNT 6.5 K/uL (4.8-10.8)
[2018-06-20] MEDS ORDERED: MethylPREDNISolone 40 mg Vial IVP STA (15:29)
[2018-06-20] MEDS: Albuterol-Ipratrop 3 mg / 0.5 (3 ml) UD IH SCH ×3 (15:30→15:51)
[2018-06-20 15:38] LABS: ALB/GLOB RATIO 1.3 (1.0-2.1); ALBUMIN 4.2 g/dL (3.5-5.0); CALCIUM 8.9 mg/dl (8.6-10.4)
[2018-06-20] MEDS ORDERED: MethylPREDNISolone 40 mg Vial ONE (15:38)
[2018-06-20] MEDS ORDERED: Albuterol-Ipratrop 3 mg / 0.5 (3 ml) UD ONE (15:50)
[2018-06-20 16:03] LABS: ANISOCYTOSIS SLIGHT; BANDS 1 % (0-2); EOSINOPHIL 1 % (0-4); HYPOCHROMIC SLIGHT; LYMPHOCYTE 8 % (20-40); MONOCYTE 9 % (0-10); NEUTROPHIL 81 % (50-75); PLATELET ESTIMATE NORMAL (NORMAL); POIKILOCYTOSIS SLIGHT; TOTAL CELLS COUNTED 100
[2018-06-20 16:04] LABS: TARGET CELLS SLIGHT
[2018-06-20] MEDS ORDERED: Azithromycin 500 MG in Sodium Chloride 0.9% 250 ML IV STA (16:13)
--- NOTE | 2018-06-20 16:17 | RAD ---
Date of service: 06/20/2018 PROCEDURE: CHEST RADIOGRAPH, 1 VIEW HISTORY: Pneumonia COMPARISON: 10/30/2017 FINDINGS: LUNGS: Right basilar infiltrate. Suspicious for pneumonia. Probable subsegmental atelectasis at left base. PLEURA: No pneumothorax or pleural fluid seen. CARDIOVASCULAR: There is atherosclerotic calcification of the thoracic aorta normal heart size. No congestive change. OSSEOUS STRUCTURES: No significant abnormalities. VISUALIZED UPPER ABDOMEN: Normal. OTHER FINDINGS: None. IMPRESSION: Right basilar infiltrate. Possible pneumonia.
[2018-06-20] MEDS ORDERED: cefTRIAXone 1 gm 1 GM/100 ML BAG IVPB ONE (16:29)
[2018-06-20] MEDS ORDERED: Azithromycin 500mg/250ML NS 500 MG/250 ML BAG IVPB ONE (16:29)
--- NOTE | 2018-06-20 16:31 | CP.PCM.HP ---
<Leroy Reed - Last Filed: 06/20/18 17:03> History of Present Illness - History of Present Illness History of Present Illness: PGY1 Medicine History and Physical for Dr. Bosch Patient is a 82 year old male with a past medical history of COPD, hypertension, CKD and diabetes presenting to the emergency room with a complaint of shortness of breath, productive cough with thick yellow sputum, subjective fever and chills. The cough began approximately 2 weeks ago per patient but son says it really worsened the past 3 days, experiencing subjective fevers, chills and congestion. The patient has been taking all of his COPD medications as directed, son states he uses nebulizers nearly every day, but is still feeling short of breath. He does not use oxygen at home. Patient denies nausea, vomiting, diarrhea, constipation, chest pain, abdominal pain, urinary symptoms, headaches, blurry vision, numbness or tingling. PMHx: HTN, HLD, DM, CKD Stage III, COPD, anemia PSHx: R inguinal hernia repair x2 Allergies: ASA ("stomach hurts" Social Hx: +former smoker, quit at age 42, 1-2ppd. No alcohol or illicit drug use Family Hx: noncontributory PMD: Dr. Miranda Pulmonary: Dr. Chevy Cruz Nephro: Dr. Dutton Heme: Dr. Lobato Present on Admission - Present on Admission Any Indicators Present on Admission: No History of DVT/PE: No History of Uncontrolled Diabetes: No Urinary Catheter: No Decubitus Ulcer Present: No Review of Systems - Review of Systems All systems: reviewed and no additional remarkable complaints except Review of Systems: as per HPI - Constitutional Constitutional: Chills, Fever. absent: Headache, Weight Loss - EENT Eyes: absent: Blurred Vision, Change in Vision Nose/Mouth/Throat: Nasal Congestion, Nasal Discharge, Sinus Pressure. absent: Sore Throat - Cardiovascular Cardiovascular: Dyspnea. absent: Chest Pain, Chest Pain at Rest, Diaphoresis, Pedal Edema - Respiratory Respiratory: Cough, Dyspnea - Gastrointestinal Gastrointestinal: absent: Abdominal Pain, Bloating, Constipation, Diarrhea, Nausea, Vomiting - Genitourinary Genitourinary: absent: Change in Urinary Stream, Difficulty Urinating, Dysuria, Flank Pain - Musculoskeletal Musculoskeletal: absent: Muscle Cramps, Myalgias - Neurological Neurological: absent: Dizziness, Numbness, Tingling - Endocrine Endocrine: absent: Fatigue, Palpitations, Polydipsia, Polyphagia, Polyuria Past Patient History - Infectious Disease Hx of Infectious Diseases: None - Past Medical History & Family History Past Medical History?: Yes - Past Social History Smoking Status: Former Smoker - CARDIAC Hx Hypertension: Yes - PULMONARY Hx Bronchitis: Yes Hx Chronic Obstructive Pulmonary Disease (COPD): Yes Hx Pneumonia: Yes (2x) - HEENT Other/Comment: wears glasses - RENAL Hx Chronic Kidney Disease: Yes (stage 3 kidney) - ENDOCRINE/METABOLIC Hx Endocrine Disorders: Yes Hx Diabetes Mellitus Type 2: Yes - HEMATOLOGICAL/ONCOLOGICAL Hx Blood Disorders: Yes Hx Blood Transfusions: Yes - MUSCULOSKELETAL/RHEUMATOLOGICAL Hx Arthritis: Yes - GASTROINTESTINAL Hx Gastrointestinal Disorders: Yes Other/Comment: HERNIA 3 weeks ago - PSYCHIATRIC Hx Substance Use: No - SURGICAL HISTORY Hx Surgeries: Yes Hx Herniorrhaphy: Yes (RIGHT INGUINAL) Other/Comment: patient didnt give no further information at this time - ANESTHESIA Hx Anesthesia: Yes Hx Anesthesia Reactions: No Hx Malignant Hyperthermia: No Meds Allergies/Adverse Reactions: Allergies Allergy/AdvReac Type Severity Reaction Status Date / Time aspirin Allergy Severe PAIN Verified 06/20/18 14:47 Physical Exam - Constitutional Appears: Non-toxic, No Acute Distress - Head Exam Head Exam: ATRAUMATIC, NORMOCEPHALIC - Eye Exam Eye Exam: EOMI, Normal appearance, PERRL - ENT Exam ENT Exam: Mucous Membranes Moist - Neck Exam Neck exam: Positive for: Full Rom, Normal Inspection. Negative for: Lymphadenopathy - Respiratory Exam Respiratory Exam: Decreased Breath Sounds, Prolonged Expiratory Phase, Wheezes. absent: Accessory Muscle Use, Rales, Rhonchi, Respiratory Distress, NORMAL BREATHING PATTERN - Cardiovascular Exam Cardiovascular Exam: REGULAR RHYTHM, +S1, +S2. absent: Diastolic murmur, Systolic Murmur - GI/Abdominal Exam GI & Abdominal Exam: Normal Bowel Sounds, Soft. absent: Firm, Guarding, Mass, Organomegaly, Rebound, Rigid, Tenderness - Extremities Exam Extremities exam: Positive for: normal capillary refill, normal inspection, pedal pulses present. Negative for: calf tenderness, joint swelling, pedal edema - Back Exam Back exam: NORMAL INSPECTION. absent: CVA tenderness (L), CVA tenderness (R) - Neurological Exam Neurological exam: Alert, CN II-XII Intact, Oriented x3 - Psychiatric Exam Psychiatric exam: Normal Affect, Normal Mood - Skin Skin Exam: Dry, Intact, Normal Color, Warm Results - Vital Signs Recent Vital Signs: Last Vital Signs Temp 98.8 F 06/20/18 15:00 Pulse 103 H 06/20/18 14:49 Resp 18 06/20/18 15:21 BP 131/64 06/20/18 14:49 Pulse Ox 92 L 06/20/18 16:16 - Labs Result Diagrams: 06/20/18 15:22 06/20/18 15:22 Labs: Laboratory Results - last 24 hr 06/20/18 06/20/18 06/20/18 15:22 15:22 15:22 WBC 6.5 RBC 2.32 L Hgb 8.2 L Hct 23.8 L MCV 102.4 H D MCH 35.3 H MCHC 34.5 RDW 13.1 Plt Count 210 MPV 6.9 L Neut % (Auto) 81.1 H Lymph % (Auto) 6.9 L Bowman % (Auto) 10.8 H Eos % (Auto) 0.9 Baso % (Auto) 0.3 Neut # (Auto) 5.2 Lymph # (Auto) 0.4 L Bowman # (Auto) 0.7 Eos # (Auto) 0.1 Baso # (Auto) 0.0 Neutrophils % (Manual) 81 H Band Neutrophils % 1 Lymphocytes % (Manual) 8 L Monocytes % (Manual) 9 Eosinophils % (Manual) 1 Platelet Estimate Normal Hypochromasia (manual) Slight Poikilocytosis (manual Slight Anisocytosis (manual) Slight Target Cells Slight Sodium 140 Potassium 4.2 Chloride 105 Carbon Dioxide 23 Anion Gap 16 BUN 73 H Creatinine 4.1 H Est GFR ( Amer) 17 Est GFR (Non-Af Amer) 14 Random Glucose 145 H Calcium 8.9 Total Bilirubin 0.5 AST 24 ALT 12 L D Alkaline Phosphatase 61 Total Protein 7.5 Albumin 4.2 Globulin 3.3 Albumin/Globulin Ratio 1.3 Influenza Typ A,B (EIA) Negative for flu a/b Assessment & Plan - Assessment and Plan (Free Text) Assessment: 82 year old M with PMHx of HTN, HLD, DM, COPD, CKD, anemia presenting to ED worsening sob, productive cough, subjective fevers in setting of COPD exacerbation. Plan: COPD exacerbation Possible Pneumonia -patient afebrile, no leukocytosis -productive cough with thick yellow sputum production x 3 days -CXR: R basilar infiltrate, possible PNA -flu negative -UA -Urine cx -sputum cx -Pulmonology (Dr. Post) on case -NS 70cc/hr -duonebs -solumedrol 40 mg q8h -azithromycin -rocephin Worsening Cr CKD Stage IV/V Prior hx of nonobstructing renal calculi -BUN/CR on admission: 73/4.1 -baseline Cr 2.2 (08/2017) -GFR 14 -Nephrology (Dr. Dutton) on case -patient has prior hx of kidney stones in CT scan 2018 -f/u XR abdomen w/ obliques, r/p kidney stones Chronic Anemia -H/H: 8.2/23.8 -likely 2/2 underlying renal failure -patient's heme/onc (Dr. Lobato) on case HTN -normotensive, continue to monitor -home med held DM -home glimeperide held -f/u A1C -ISS low -accuchecks ACHS -hypoglycemic protocol PPx, Diet, Disposition -DVT ppx: scds, lovenox -GI: protonix -Diet: renal -PT/OT on board Case discussed with Dr. Danitza Reed DO, PGY-1 <Anderson Bosch H - Last Filed: 06/20/18 18:05> Results - Vital Signs Recent Vital Signs: Last Vital Signs Temp 98.5 F 06/20/18 17:20 Pulse 112 H 06/20/18 17:20 Resp 20 06/20/18 17:20 BP 115/58 L 06/20/18 17:20 Pulse Ox 97 06/20/18 17:20 - Labs Result Diagrams: 06/20/18 15:22 06/20/18 15:22 Labs: Laboratory Results - last 24 hr 06/20/18 06/20/18 06/20/18 15:22 15:22 15:22 WBC 6.5 RBC 2.32 L Hgb 8.2 L Hct 23.8 L MCV 102.4 H D MCH 35.3 H MCHC 34.5 RDW 13.1 Plt Count 210 MPV 6.9 L Neut % (Auto) 81.1 H Lymph % (Auto) 6.9 L Bowman % (Auto) 10.8 H Eos % (Auto) 0.9 Baso % (Auto) 0.3 Neut # (Auto) 5.2 Lymph # (Auto) 0.4 L Bowman # (Auto) 0.7 Eos # (Auto) 0.1 Baso # (Auto) 0.0 Neutrophils % (Manual) 81 H Band Neutrophils % 1 Lymphocytes % (Manual) 8 L Monocytes % (Manual) 9 Eosinophils % (Manual) 1 Platelet Estimate Normal Hypochromasia (manual) Slight Poikilocytosis (manual Slight Anisocytosis (manual) Slight Target Cells Slight Sodium 140 Potassium 4.2 Chloride 105 Carbon Dioxide 23 Anion Gap 16 BUN 73 H Creatinine 4.1 H Est GFR ( Amer) 17 Est GFR (Non-Af Amer) 14 Random Glucose 145 H Calcium 8.9 Total Bilirubin 0.5 AST 24 ALT 12 L D Alkaline Phosphatase 61 Total Protein 7.5 Albumin 4.2 Globulin 3.3 Albumin/Globulin Ratio 1.3 Urine Color Urine Clarity Urine pH Ur Specific [place] Urine Protein Urine Glucose (UA) Urine Ketones Urine Blood Urine Nitrate Urine Bilirubin Urine Urobilinogen Ur Leukocyte Esterase Urine WBC (Auto) Urine RBC (Auto) Ur Squamous Epith Cells Urine Bacteria Influenza Typ A,B (EIA) Negative for flu a/b 06/20/18 16:53 WBC RBC Hgb Hct MCV MCH MCHC RDW Plt Count MPV Neut % (Auto) Lymph % (Auto) Bowman % (Auto) Eos % (Auto) Baso % (Auto) Neut # (Auto) Lymph # (Auto) Bowman # (Auto) Eos # (Auto) Baso # (Auto) Neutrophils % (Manual) Band Neutrophils % Lymphocytes % (Manual) Monocytes % (Manual) Eosinophils % (Manual) Platelet Estimate Hypochromasia (manual) Poikilocytosis (manual Anisocytosis (manual) Target Cells Sodium Potassium Chloride Carbon Dioxide Anion Gap BUN Creatinine Est GFR ( Amer) Est GFR (Non-Af Amer) Random Glucose Calcium Total Bilirubin AST ALT Alkaline Phosphatase Total Protein Albumin Globulin Albumin/Globulin Ratio Urine Color Yellow Urine Clarity Clear Urine pH 5.0 Ur Specific [place] 1.010 Urine Protein 2+ H Urine Glucose (UA) Normal Urine Ketones Negative Urine Blood Trace H Urine Nitrate Negative Urine Bilirubin Negative Urine Urobilinogen Normal Ur Leukocyte Esterase Neg Urine WBC (Auto) 3 Urine RBC (Auto) 2 Ur Squamous Epith Cells < 1 Urine Bacteria Rare Influenza Typ A,B (EIA) Attending/Attestation - Attestation I have personally seen and examined this patient.: Yes I have fully participated in the care of the patient.: Yes I have reviewed all pertinent clinical information: Yes Notes (Text): 06/20/18 18:04 Medical attending: Patient was seen and examined by me, agrees the above note by the medical collector. I saw the patient together with the medical collector. The patient had already been moved to the third floor by the time I saw him. He was not in any acute distress when I saw him. I spoke with the patient's daughter over the phone as well I tried to reach the patient's son over the phone however I was not able to insulin left message. The patient reports that his breathing is somewhat improved since coming to the hospital. We are can get additional CT imaging of the lungs because there is a concern for potential pneumonia and he reports that he has a lot of sputum production. IV antibiotics were given in the ER regarding continue IV antibiotics. Cultures were collected and also check sputum cultures as well. 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 There's been imaging done just to check if there could be some type of obstruction because he does have a history of prior kidney stones in the past. As of right now he does not appear to be uremic his potassium is okay, bicarbonate is currently okay range as well There is also anemia this appears to be chronic in nature we'll continue to monitor this and if need to transfuse. With regards to his diabetes he takes a sulfonurea, and in light of is elevated creatinine we'll hold that for now and just use sliding scale insulin for the time being. Thank you very much, Anderson Bosch
[2018-06-20] MEDS ORDERED: Dextrose 50% SYRINGE Inj (50 ml) IV PRN (16:57)
[2018-06-20] MEDS ORDERED: Glucagon Recombinant 1 mg Inj IM PRN (16:57)
[2018-06-20 17:05] LABS: SQUAMOUS EPITHIAL < 1 /hpf (0-5); URINE BACTERIA RARE (<OCC); URINE BILIRUBIN NEGATIVE (NEGATIVE); URINE BLOOD TRACE (NEGATIVE); URINE CLARITY Clear (Clear); URINE COLOR Yellow (YELLOW); URINE GLUCOSE (UA) NORMAL (Normal); URINE LEUKOCYTE ESTERASE NEG Leu/uL (Negative); URINE PROTEIN 2+ mg/dL (NEGATIVE); URINE UROBILINOGEN NORMAL mg/dL (0.2-1.0)
[2018-06-20] MEDS ORDERED: Sodium Chloride 0.9% 1,000 ML IV ONE (17:05)
--- NOTE | 2018-06-20 17:26 | RAD ---
Date of service: 06/20/2018 HISTORY: rule out kidney stones, worsening renal insuffienc COMPARISON: None available. FINDINGS: BOWEL: Constipation without fecal impaction or obstruction. BONES: Normal. OTHER FINDINGS: No visible radiopaque calculi. IMPRESSION: No visible radiopaque calculi. Limitations of the current examination: Renal regions in urinary bladder/ureters are obscured by overlying bowel gas and fecal debris.
--- NOTE | 2018-06-20 17:32 | CT ---
Date of service: 06/20/2018 PROCEDURE: CT Chest without contrast HISTORY: copd exacerbation, hx interstitial lung dz COMPARISON: 03/05/2018 CT abdomen and pelvis including lower lung jackson. TECHNIQUE: Contiguous axial images were obtained through the chest without intravenous contrast enhancement. Sagittal and coronal reconstructions were performed. Radiation dose: Total exam DLP = 267.6 mGy-cm. This CT exam was performed using one or more of the following dose reduction techniques: Automated exposure control, adjustment of the mA and/or kV according to patient size, and/or use of iterative reconstruction technique. FINDINGS: LUNGS: Honeycombing pattern particularly at the lung bases affecting lower lobes, lingula and right middle lobe to a greater degree than the upper lung jackson. The overall appearance suggests a component of cystic bronchiectasis. There is underlying interstitial lung disease. Peribronchial thickening noted without mucous plugging. No suspicious pulmonary nodules, masses. MEDIASTINUM: Unremarkable thoracic aorta. No aneurysm. Normal sized heart. Main pulmonary artery unremarkable. No vascular congestion. No lymphadenopathy. Atherosclerotic calcification and mural plaque present. Findings are seen throughout the aorta which is non aneurysmal. PLEURA: No pleural fluid. No pneumothorax. BONES: No fracture. No destructive lesion. UPPER ABDOMEN: Cholelithiasis without CT evidence of acute cholecystitis. Solitary right renal calculus. Please note the kidneys are not visible in their entirety. OTHER FINDINGS: None. IMPRESSION: Underlying interstitial lung disease.. Honeycombing noted. This is primarily lower lobe and lingular/right middle lobe process. Underlying findings suggestive of primarily cystic and to lesser extent traction bronchiectasis. No new/superimposed infiltrates. No suspicious pulmonary nodules or masses.
[2018-06-20] MEDS: MethylPREDNISolone 40 mg Vial IVP SCH (18:46)
[2018-06-20] MEDS: Enoxaparin 40 mg Syringe SC SCH (18:46)
[2018-06-20] MEDS: (Novolin R) Insulin Human Regular 100 units/ml vial SC SCH (22:21)
[2018-06-21] MEDS: Albuterol-Ipratrop 3 mg / 0.5 (3 ml) UD INH SCH ×6 (00:55→19:26)
[2018-06-21] MEDS: MethylPREDNISolone 40 mg Vial IVP SCH ×3 (01:51→17:33)
[2018-06-21] MEDS ORDERED: (Novolin R) Insulin Human Regular 100 units/ml vial SC ONE (02:44)
[2018-06-21] MEDS: (Novolin R) Insulin Human Regular 100 units/ml vial SC SCH ×4 (08:30→21:43)
[2018-06-21] MEDS ORDERED: Sodium Chloride 0.9% 1,000 ML IV SCH (08:30)
[2018-06-21] MEDS: Azithromycin 500 MG in Sodium Chloride 0.9% 250 ML IVPB SCH (08:31)
--- NOTE | 2018-06-21 10:02 | CP.PCM.CON ---
History of Present Illness - History of Present Illness History of Present Illness: Patient is a 82 year old male with a past medical history of COPD, hypertension, CKD and diabetes presenting to the emergency room with a complaint of shortness of breath, productive cough with thick yellow sputum, subjective fever and chills. The cough began approximately 2 weeks ago per patient but son says it really worsened the past 3 days, experiencing subjective fevers, chills and congestion. The patient has been taking all of his COPD medications as directed, son states he uses nebulizers nearly every day, but is still feeling short of breath. He does not use oxygen at home. Patient denies nausea, vomiting, diarrhea, constipation, chest pain, abdominal pain, urinary symptoms, headaches, blurry vision, numbness or tingling. Creat increased to 4.1, baseline around 2.5. PMHx: HTN, HLD, DM 2, CKD Stage 3-4, COPD and pulmonary fibrosis, anemia PSHx: R inguinal hernia repair x2, kidney stone removal Allergies: ASA ("stomach hurts" Social Hx: +former smoker, quit at age 42, 1-2ppd. No alcohol or illicit drug use Family Hx: noncontributory, no CKD hx Review of Systems - Constitutional Constitutional: Chills, Fatigue, Fever, Weakness - EENT Eyes: absent: As Per HPI, Blind Spots, Blurred Vision, Change in Vision, Decreased Night Vision, Diplopia, Discharge, Dry Eye, Exophthalmos, Floaters, Irritation, Itchy Eyes, Loss of Peripheral Vision, Pain, Photophobia, Requires Corrective Lenses, Sees Flashes, Spots in Vision, Tunnel Vision, Other Visual Disturbances, Loss of Vision, Other Ears: absent: As Per HPI, Decreased Hearing, Ear Discharge, Ear Pain, Tinnitus, Abnormal Hearing, Disequilibrium, Dizziness, Other Nose/Mouth/Throat: absent: As Per HPI, Epistaxis, Nasal Congestion, Nasal Discharge, Nasal Obstruction, Nasal Trauma, Nose Pain, Post Nasal Drip, Sinus Pain, Sinus Pressure, Bleeding Gums, Change in Voice, Dental Pain, Dry Mouth, Dysphagia, Halitosis, Hoarsness, Lip Swelling, Mouth Lesions, Mouth Pain, Odynophagia, Sore Throat, Throat Swelling, Tongue Swelling, Facial Pain, Neck Pain, Neck Mass, Other - Cardiovascular Cardiovascular: Dyspnea on Exertion, Lightheadedness - Respiratory Respiratory: As Per HPI - Gastrointestinal Gastrointestinal: Constipation - Genitourinary Genitourinary: Voiding Freq/Small Amts - Musculoskeletal Musculoskeletal: Muscle Cramps, Muscle Weakness, Myalgias - Neurological Neurological: Weakness Past Patient History - Infectious Disease Hx of Infectious Diseases: None - Past Medical History & Family History Past Medical History?: Yes Past Family History: Reviewed and not pertinent - Past Social History Smoking Status: Former Smoker Chewing Tobacco Use: No Cigar Use: No Alcohol: Occasional Drugs: Denies Home Situation {Lives}: Alone - CARDIAC Hx Hypertension: Yes - PULMONARY Hx Bronchitis: Yes Hx Chronic Obstructive Pulmonary Disease (COPD): Yes Hx Pneumonia: Yes (2x) - HEENT Other/Comment: wears glasses - RENAL Hx Chronic Kidney Disease: Yes (stage 3 kidney) - ENDOCRINE/METABOLIC Hx Endocrine Disorders: Yes Hx Diabetes Mellitus Type 2: Yes - HEMATOLOGICAL/ONCOLOGICAL Hx Blood Disorders: Yes Hx Blood Transfusions: Yes - MUSCULOSKELETAL/RHEUMATOLOGICAL Hx Arthritis: Yes Hx Falls: No - GASTROINTESTINAL Hx Gastrointestinal Disorders: Yes Other/Comment: HERNIA 3 weeks ago - PSYCHIATRIC Hx Substance Use: No - SURGICAL HISTORY Hx Surgeries: Yes Hx Herniorrhaphy: Yes (RIGHT INGUINAL) Other/Comment: patient didnt give no further information at this time - ANESTHESIA Hx Anesthesia: Yes Hx Anesthesia Reactions: No Hx Malignant Hyperthermia: No Meds Allergies/Adverse Reactions: Allergies Allergy/AdvReac Type Severity Reaction Status Date / Time aspirin Allergy Severe PAIN Verified 06/20/18 14:47 - Medications Medications: Current Medications Albuterol/Ipratropium (Duoneb 3 Mg/0.5 Mg (3 Ml) Ud) 3 ml INH RQ4 [facility] Last Admin: 06/21/18 04:58 Dose: Not Given Dextrose (Dextrose 50% Inj) 0 ml IV STAT PRN; Protocol PRN Reason: Hypoglycemia Protocol Dextrose (Glutose 15) 0 gm PO ONCE PRN; Protocol PRN Reason: Hypoglycemia Protocol Enoxaparin Sodium (Lovenox) 40 mg SC DAILY [facility] Last Admin: 06/20/18 18:46 Dose: 40 mg Glucagon (Glucagen Diagnostic Kit) 0 mg IM STAT PRN; Protocol PRN Reason: Hypoglycemia Protocol Azithromycin 500 mg/ Sodium (Chloride) 250 mls @ 250 mls/hr IVPB Q24H [facility]; Protocol Last Admin: 06/21/18 08:31 Dose: 250 mls/hr Ceftriaxone Sodium 1 gm/ (Sodium Chloride) 100 mls @ 100 mls/hr IVPB DAILY [facility]; Protocol Dextrose (Dextrose 5% In Water 1000 Ml) 1,000 mls @ 0 mls/hr IV .Q0M PRN; Protocol PRN Reason: Hypoglycemia Protocol Sodium Chloride (Sodium Chloride 0.9%) 1,000 mls @ 70 mls/hr IV .[id number] [facility] Insulin Human Regular (Novolin R) 0 unit SC ACHS [facility]; Protocol Last Admin: 06/21/18 08:30 Dose: 3 units Methylprednisolone (Solu-Medrol) 40 mg IVP Q8H [facility] Last Admin: 06/21/18 08:31 Dose: 40 mg Pantoprazole Sodium (Protonix Inj) 40 mg IVP DAILY [facility] Last Admin: 06/20/18 18:45 Dose: 40 mg Physical Exam - Constitutional Appears: No Acute Distress, Cachectic, Chronically Ill - Head Exam Head Exam: ATRAUMATIC, NORMAL INSPECTION - Eye Exam Eye Exam: EOMI, Normal appearance - Neck Exam Neck exam: Positive for: Normal Inspection. Negative for: Tenderness - Respiratory Exam Respiratory Exam: Rhonchi, Respiratory Distress - Cardiovascular Exam Cardiovascular Exam: REGULAR RHYTHM, +S1 - GI/Abdominal Exam GI & Abdominal Exam: Soft. absent: Tenderness - Extremities Exam Extremities exam: Positive for: normal inspection. Negative for: tenderness - Neurological Exam Neurological exam: Alert, CN II-XII Intact - Skin Skin Exam: Dry, Warm Results - Vital Signs Recent Vital Signs: Last Vital Signs Temp 97.8 F 06/21/18 08:00 Pulse 85 06/21/18 08:00 Resp 20 06/21/18 08:00 BP 143/69 06/21/18 08:00 Pulse Ox 100 06/21/18 08:00 - Labs Result Diagrams: 06/20/18 15:22 06/20/18 15:22 Labs: Laboratory Results - last 24 hr 06/20/18 06/20/18 06/20/18 15:22 15:22 15:22 WBC 6.5 RBC 2.32 L Hgb 8.2 L Hct 23.8 L MCV 102.4 H D MCH 35.3 H MCHC 34.5 RDW 13.1 Plt Count 210 MPV 6.9 L Neut % (Auto) 81.1 H Lymph % (Auto) 6.9 L [place] % (Auto) 10.8 H Eos % (Auto) 0.9 Baso % (Auto) 0.3 Neut # (Auto) 5.2 Lymph # (Auto) 0.4 L [place] # (Auto) 0.7 Eos # (Auto) 0.1 Baso # (Auto) 0.0 Neutrophils % (Manual) 81 H Band Neutrophils % 1 Lymphocytes % (Manual) 8 L Monocytes % (Manual) 9 Eosinophils % (Manual) 1 Platelet Estimate Normal Hypochromasia (manual) Slight Poikilocytosis (manual Slight Anisocytosis (manual) Slight Target Cells Slight Sodium 140 Potassium 4.2 Chloride 105 Carbon Dioxide 23 Anion Gap 16 BUN 73 H Creatinine 4.1 H Est GFR ( Amer) 17 Est GFR (Non-Af Amer) 14 POC Glucose (mg/dL) Random Glucose 145 H Hemoglobin A1c Calcium 8.9 Total Bilirubin 0.5 AST 24 ALT 12 L D Alkaline Phosphatase 61 Total Protein 7.5 Albumin 4.2 Globulin 3.3 Albumin/Globulin Ratio 1.3 Urine Color Urine Clarity Urine pH Ur Specific [place] Urine Protein Urine Glucose (UA) Urine Ketones Urine Blood Urine Nitrate Urine Bilirubin Urine Urobilinogen Ur Leukocyte Esterase Urine WBC (Auto) Urine RBC (Auto) Ur Squamous Epith Cells Urine Bacteria Influenza Typ A,B (EIA) Negative for flu a/b 06/20/18 06/20/18 06/20/18 16:53 18:46 21:12 WBC RBC Hgb Hct MCV MCH MCHC RDW Plt Count MPV Neut % (Auto) Lymph % (Auto) [place] % (Auto) Eos % (Auto) Baso % (Auto) Neut # (Auto) Lymph # (Auto) [place] # (Auto) Eos # (Auto) Baso # (Auto) Neutrophils % (Manual) Band Neutrophils % Lymphocytes % (Manual) Monocytes % (Manual) Eosinophils % (Manual) Platelet Estimate Hypochromasia (manual) Poikilocytosis (manual Anisocytosis (manual) Target Cells Sodium Potassium Chloride Carbon Dioxide Anion Gap BUN Creatinine Est GFR ( Amer) Est GFR (Non-Af Amer) POC Glucose (mg/dL) 412 H* Random Glucose Hemoglobin A1c 5.6 Calcium Total Bilirubin AST ALT Alkaline Phosphatase Total Protein Albumin Globulin Albumin/Globulin Ratio Urine Color Yellow Urine Clarity Clear Urine pH 5.0 Ur Specific [place] 1.010 Urine Protein 2+ H Urine Glucose (UA) Normal Urine Ketones Negative Urine Blood Trace H Urine Nitrate Negative Urine Bilirubin Negative Urine Urobilinogen Normal Ur Leukocyte Esterase Neg Urine WBC (Auto) 3 Urine RBC (Auto) 2 Ur Squamous Epith Cells < 1 Urine Bacteria Rare Influenza Typ A,B (EIA) 06/21/18 06/21/18 02:25 06:13 WBC RBC Hgb Hct MCV MCH MCHC RDW Plt Count MPV Neut % (Auto) Lymph % (Auto) [place] % (Auto) Eos % (Auto) Baso % (Auto) Neut # (Auto) Lymph # (Auto) [place] # (Auto) Eos # (Auto) Baso # (Auto) Neutrophils % (Manual) Band Neutrophils % Lymphocytes % (Manual) Monocytes % (Manual) Eosinophils % (Manual) Platelet Estimate Hypochromasia (manual) Poikilocytosis (manual Anisocytosis (manual) Target Cells Sodium Potassium Chloride Carbon Dioxide Anion Gap BUN Creatinine Est GFR ( Amer) Est GFR (Non-Af Amer) POC Glucose (mg/dL) 442 H* 304 H Random Glucose Hemoglobin A1c Calcium Total Bilirubin AST ALT Alkaline Phosphatase Total Protein Albumin Globulin Albumin/Globulin Ratio Urine Color Urine Clarity Urine pH Ur Specific [place] Urine Protein Urine Glucose (UA) Urine Ketones Urine Blood Urine Nitrate Urine Bilirubin Urine Urobilinogen Ur Leukocyte Esterase Urine WBC (Auto) Urine RBC (Auto) Ur Squamous Epith Cells Urine Bacteria Influenza Typ A,B (EIA) Assessment & Plan (1) Pulmonary fibrosis Status: Acute (2) KINJAL (acute kidney injury) Status: Acute (3) CKD stage 4 due to type 2 diabetes mellitus Status: Acute (4) Dehydration Status: Acute (5) Acute on chronic renal insufficiency Status: Acute (6) COPD exacerbation Status: Acute - Assessment and Plan (Free Text) Plan: Trial IV fluids IV ABs- treat COPD exacerbation Renal sonogram Serial chemistries ua, check urine lytes if no improvement will speak with family about [employer]
[2018-06-21] MEDS: Enoxaparin 40 mg Syringe SC SCH (10:04)
[2018-06-21] MEDS: Sodium Chloride 0.9% 1,000 ML IV SCH ×2 (10:30→21:43)
--- NOTE | 2018-06-21 12:00 | CP.PCM.PN ---
Subjective - Date & Time of Evaluation Date of Evaluation: 06/21/18 Time of Evaluation: 11:30 - Subjective Subjective: Patient was seen and examined by me. We are still pending lab work this morning and I re-ordered it for today as we need to see what the Hgb and Creatine look like today Patient says he feels much better today than when he came yesterday. Less short of breath, denied fevers, no more sputum production. Denied chest pain, denied abdominal pain. As mentioned previously : this is an 82 year old male with a history of COPD, interstial lung disease, CKD about stage 3 (or 4) here with shortness of breath and productive sputum. He was found to also have an elevated creatine above his baseline. He was started on IV abx due to concerns for pneumonia on imaging as well as slow IVF due to the KINJAL. Also solumedrol IV for the history of COPD. I spoke with daughter yesterday over phone, left message with his son number. Objective - Vital Signs/Intake and Output Vital Signs (last 24 hours): Temp Pulse Resp BP Pulse Ox 97.8 F 85 20 143/69 100 06/21/18 08:00 06/21/18 08:00 06/21/18 08:00 06/21/18 08:00 06/21/18 08:00 Intake and Output: 06/21/18 06/21/18 06:59 18:59 Intake Total 280 610 Balance 280 610 - Medications Medications: Current Medications Albuterol/Ipratropium (Duoneb 3 Mg/0.5 Mg (3 Ml) Ud) 3 ml INH RQ4 [facility] Last Admin: 06/21/18 11:28 Dose: 3 ml Dextrose (Dextrose 50% Inj) 0 ml IV STAT PRN; Protocol PRN Reason: Hypoglycemia Protocol Dextrose (Glutose 15) 0 gm PO ONCE PRN; Protocol PRN Reason: Hypoglycemia Protocol Enoxaparin Sodium (Lovenox) 40 mg SC DAILY [facility] Last Admin: 06/21/18 10:04 Dose: 40 mg Glucagon (Glucagen Diagnostic Kit) 0 mg IM STAT PRN; Protocol PRN Reason: Hypoglycemia Protocol Azithromycin 500 mg/ Sodium (Chloride) 250 mls @ 250 mls/hr IVPB Q24H [facility]; Protocol Last Admin: 06/21/18 08:31 Dose: 250 mls/hr Ceftriaxone Sodium 1 gm/ (Sodium Chloride) 100 mls @ 100 mls/hr IVPB DAILY [facility]; Protocol Last Admin: 06/21/18 10:03 Dose: 100 mls/hr Dextrose (Dextrose 5% In Water 1000 Ml) 1,000 mls @ 0 mls/hr IV .Q0M PRN; Protocol PRN Reason: Hypoglycemia Protocol Sodium Chloride (Sodium Chloride 0.9%) 1,000 mls @ 100 mls/hr IV .Q10H [facility] Insulin Human Regular (Novolin R) 0 unit SC ACHS [facility]; Protocol Last Admin: 06/21/18 08:30 Dose: 3 units Methylprednisolone (Solu-Medrol) 40 mg IVP Q8H [facility] Last Admin: 06/21/18 08:31 Dose: 40 mg Pantoprazole Sodium (Protonix Inj) 40 mg IVP DAILY [facility] Last Admin: 06/21/18 10:04 Dose: 40 mg - Labs Labs: 06/20/18 15:22 06/20/18 15:22 - Constitutional Appears: No Acute Distress, Chronically Ill - Head Exam Head Exam: NORMAL INSPECTION, NORMOCEPHALIC - Eye Exam Eye Exam: EOMI, Normal appearance - ENT Exam ENT Exam: Mucous Membranes Moist - Respiratory Exam Respiratory Exam: Rales, NORMAL BREATHING PATTERN. absent: Clear to Ausculation Bilateral - Cardiovascular Exam Cardiovascular Exam: REGULAR RHYTHM - Neurological Exam Neurological Exam: Alert, Awake, Oriented x3 Neuro motor strength exam: Left Upper Extremity: 5, Right Upper Extremity: 5 - Psychiatric Exam Psychiatric exam: Normal Affect, Normal Mood - Skin Skin Exam: Normal Color, Warm Assessment and Plan - Assessment and Plan (Free Text) Assessment: - Assessment and Plan (Free Text) Assessment: 82 year old M with PMHx of HTN, HLD, DM, COPD, CKD, anemia presenting to ED worsening sob, productive cough, subjective fevers in setting of COPD exacerbation. Plan: COPD exacerbation Possible Pneumonia 06/21: He feels a lot better we ordered blood and sputum cultures yesterday and it is not yet returned. Continued IV abx Azithromycin and Rocephin. Currently afebrile. He reports no fever overnight, breathing is improved at this time. He is on solumedrol 80 IV as well as duonebulizers at this moment. Slow IVF, pulmonary evaluation. The intial CXR: R basilar infiltrate, possible PNA however CT reports only a lot of interstitial disease and honeycombing seen at the basis and at the apex Worsening Cr, CKD Stage IV/V Prior hx of nonobstructing renal calculi 06/21: Pending lab work today. Nephrology has ordered additional testing. -BUN/CR on admission: 73/4.1 -baseline Cr 2.2 (08/2017) -GFR 14 -Nephrology (Dr. Dutton) on case -patient has prior hx of kidney stones in CT scan 2017 -f/u XR abdomen w/ obliques, r/p kidney stones Chronic Anemia 06/21: Pending morning lab work, anneliese related to ongoing CKD HTN -normotensive, continue to monitor -home med held DM 06/21: Currently the sulfonyurea is on hold due to renal function, using SSI at this time PPx, Diet, Disposition -DVT ppx: scds, lovenox -GI: protonix -Diet: renal -PT/OT on board
[2018-06-21 14:11] LABS: MEAN CELL VOLUME 102.5 fL (80.0-94.0); MEAN CORPUSCULAR HEMOGLOBIN 34.8 pg (27.0-31.0); MEAN CORPUSCULAR HGB CONC 33.9 g/dL (33.0-37.0); MEAN PLATELET VOLUME 7.6 fL (7.2-11.7); RBC 2.31 Mil/uL (4.40-5.90); RED CELL DISTRIBUTION WIDTH 13.1 % (11.5-14.5); WHITE BLOOD COUNT 6.8 K/uL (4.8-10.8)
[2018-06-21 14:26] LABS: ALB/GLOB RATIO 1.1 (1.0-2.1); ALBUMIN 3.7 g/dL (3.5-5.0); CALCIUM 8.5 mg/dl (8.6-10.4)
[2018-06-21 17:14] LABS: SQUAMOUS EPITHIAL 1 /hpf (0-5); URINE BACTERIA RARE (<OCC); URINE BILIRUBIN NEGATIVE (NEGATIVE); URINE BLOOD 1+ (NEGATIVE); URINE CLARITY Clear (Clear); URINE COLOR Yellow (YELLOW); URINE GLUCOSE (UA) 2+ mg/dL (Normal); URINE LEUKOCYTE ESTERASE NEG Leu/uL (Negative); URINE PROTEIN 2+ mg/dL (NEGATIVE); URINE UROBILINOGEN NORMAL mg/dL (0.2-1.0)
--- NOTE | 2018-06-21 18:04 | CP.PCM.CON ---
History of Present Illness - History of Present Illness History of Present Illness: reason for consultation: shortness of breath 82-year-old male with history of COPD, pulmonary fibrosis, bronchiectasis, hypertension who presented to emergency room with worsening shortness of breath and cough productive of yellowish phlegm.He states he has cough for past many months but got worse 2 weeks ago. Denies fever or chills, denies chest pain. CAT scan of the chest consistent with bronchiectasis and institutional lung disease. PMHx: HTN, HLD, DM, CKD Stage III, COPD, anemia PSHx: R inguinal hernia repair x2 Allergies: ASA ("stomach hurts" Social Hx: +former smoker, quit at age 42, 1-2ppd. No alcohol or illicit drug u se Family Hx: noncontributory Review of Systems - Review of Systems All systems: reviewed and no additional remarkable complaints except (shortness of breath and productive cough) Past Patient History - Infectious Disease Hx of Infectious Diseases: None - Past Medical History & Family History Past Medical History?: Yes Past Family History: Reviewed and not pertinent - Past Social History Smoking Status: Former Smoker Chewing Tobacco Use: No Cigar Use: No Alcohol: Occasional Drugs: Denies Home Situation {Lives}: Alone - CARDIAC Hx Hypertension: Yes - PULMONARY Hx Bronchitis: Yes Hx Chronic Obstructive Pulmonary Disease (COPD): Yes Hx Pneumonia: Yes (2x) - HEENT Other/Comment: wears glasses - RENAL Hx Chronic Kidney Disease: Yes (stage 3 kidney) - ENDOCRINE/METABOLIC Hx Endocrine Disorders: Yes Hx Diabetes Mellitus Type 2: Yes - HEMATOLOGICAL/ONCOLOGICAL Hx Blood Disorders: Yes Hx Blood Transfusions: Yes - MUSCULOSKELETAL/RHEUMATOLOGICAL Hx Arthritis: Yes Hx Falls: No - GASTROINTESTINAL Hx Gastrointestinal Disorders: Yes Other/Comment: HERNIA 3 weeks ago - PSYCHIATRIC Hx Substance Use: No - SURGICAL HISTORY Hx Surgeries: Yes Hx Herniorrhaphy: Yes (RIGHT INGUINAL) Other/Comment: patient didnt give no further information at this time - ANESTHESIA Hx Anesthesia: Yes Hx Anesthesia Reactions: No Hx Malignant Hyperthermia: No Meds Allergies/Adverse Reactions: Allergies Allergy/AdvReac Type Severity Reaction Status Date / Time aspirin Allergy Severe PAIN Verified 06/20/18 14:47 - Medications Medications: Current Medications Albuterol/Ipratropium (Duoneb 3 Mg/0.5 Mg (3 Ml) Ud) 3 ml INH RQ4 [facility] Last Admin: 06/21/18 16:08 Dose: 3 ml Dextrose (Dextrose 50% Inj) 0 ml IV STAT PRN; Protocol PRN Reason: Hypoglycemia Protocol Dextrose (Glutose 15) 0 gm PO ONCE PRN; Protocol PRN Reason: Hypoglycemia Protocol Enoxaparin Sodium (Lovenox) 40 mg SC DAILY [facility] Last Admin: 06/21/18 10:04 Dose: 40 mg Glucagon (Glucagen Diagnostic Kit) 0 mg IM STAT PRN; Protocol PRN Reason: Hypoglycemia Protocol Azithromycin 500 mg/ Sodium (Chloride) 250 mls @ 250 mls/hr IVPB Q24H [facility]; Protocol Last Admin: 06/21/18 08:31 Dose: 250 mls/hr Ceftriaxone Sodium 1 gm/ (Sodium Chloride) 100 mls @ 100 mls/hr IVPB DAILY [facility]; Protocol Last Admin: 06/21/18 10:03 Dose: 100 mls/hr Dextrose (Dextrose 5% In Water 1000 Ml) 1,000 mls @ 0 mls/hr IV .Q0M PRN; Protocol PRN Reason: Hypoglycemia Protocol Sodium Chloride (Sodium Chloride 0.9%) 1,000 mls @ 100 mls/hr IV .Q10H [facility] Last Admin: 06/21/18 10:30 Dose: 100 mls/hr Insulin Human Regular (Novolin R) 0 unit SC ACHS [facility]; Protocol Last Admin: 06/21/18 17:32 Dose: 6 u Methylprednisolone (Solu-Medrol) 40 mg IVP Q8H [facility] Last Admin: 06/21/18 17:33 Dose: 40 mg Pantoprazole Sodium (Protonix Inj) 40 mg IVP DAILY [facility] Last Admin: 06/21/18 10:04 Dose: 40 mg Physical Exam - Head Exam Head Exam: ATRAUMATIC, NORMOCEPHALIC - ENT Exam ENT Exam: Mucous Membranes Moist - Neck Exam Neck exam: Positive for: Normal Inspection - Respiratory Exam Respiratory Exam: Rales, Rhonchi, Wheezes - Cardiovascular Exam Cardiovascular Exam: REGULAR RHYTHM - GI/Abdominal Exam GI & Abdominal Exam: Normal Bowel Sounds, Soft - Extremities Exam Extremities exam: Positive for: normal inspection Results - Vital Signs Recent Vital Signs: Last Vital Signs Temp 97.8 F 06/21/18 15:29 Pulse 78 06/21/18 15:29 Resp 20 06/21/18 15:29 BP 133/66 06/21/18 15:29 Pulse Ox 99 06/21/18 15:29 - Labs Result Diagrams: 06/21/18 14:04 06/21/18 14:04 Labs: Laboratory Results - last 24 hr 06/20/18 06/20/18 06/21/18 18:46 21:12 02:25 WBC RBC Hgb Hct MCV MCH MCHC RDW Plt Count MPV Sodium Potassium Chloride Carbon Dioxide Anion Gap BUN Creatinine Est GFR ( Amer) Est GFR (Non-Af Amer) POC Glucose (mg/dL) 412 H* 442 H* Random Glucose Hemoglobin A1c 5.6 Calcium Phosphorus Magnesium Total Bilirubin AST ALT Alkaline Phosphatase Total Protein Albumin Globulin Albumin/Globulin Ratio Urine Color Urine Clarity Urine pH Ur Specific [place] Urine Protein Urine Glucose (UA) Urine Ketones Urine Blood Urine Nitrate Urine Bilirubin Urine Urobilinogen Ur Leukocyte Esterase Urine WBC (Auto) Urine RBC (Auto) Ur Squamous Epith Cells Urine Bacteria Ur Random Sodium 06/21/18 06/21/18 06/21/18 06:13 14:04 14:04 WBC 6.8 RBC 2.31 L Hgb 8.0 L Hct 23.7 L MCV 102.5 H MCH 34.8 H MCHC 33.9 RDW 13.1 Plt Count 198 MPV 7.6 Sodium 140 Potassium 4.7 Chloride 109 H Carbon Dioxide 17 L Anion Gap 20 BUN 73 H Creatinine 3.6 H Est GFR ( Amer) 20 Est GFR (Non-Af Amer) 16 POC Glucose (mg/dL) 304 H Random Glucose 246 H D Hemoglobin A1c Calcium 8.5 L Phosphorus 4.3 Magnesium 1.7 Total Bilirubin 0.3 AST 17 D ALT 14 L Alkaline Phosphatase 60 Total Protein 7.0 Albumin 3.7 Globulin 3.3 Albumin/Globulin Ratio 1.1 Urine Color Urine Clarity Urine pH Ur Specific [place] Urine Protein Urine Glucose (UA) Urine Ketones Urine Blood Urine Nitrate Urine Bilirubin Urine Urobilinogen Ur Leukocyte Esterase Urine WBC (Auto) Urine RBC (Auto) Ur Squamous Epith Cells Urine Bacteria Ur Random Sodium 06/21/18 06/21/18 17:04 17:04 WBC RBC Hgb Hct MCV MCH MCHC RDW Plt Count MPV Sodium Potassium Chloride Carbon Dioxide Anion Gap BUN Creatinine Est GFR ( Amer) Est GFR (Non-Af Amer) POC Glucose (mg/dL) Random Glucose Hemoglobin A1c Calcium Phosphorus Magnesium Total Bilirubin AST ALT Alkaline Phosphatase Total Protein Albumin Globulin Albumin/Globulin Ratio Urine Color Yellow Urine Clarity Clear Urine pH 5.0 Ur Specific [place] 1.013 Urine Protein 2+ H Urine Glucose (UA) 2+ H Urine Ketones Negative Urine Blood 1+ H Urine Nitrate Negative Urine Bilirubin Negative Urine Urobilinogen Normal Ur Leukocyte Esterase Neg Urine WBC (Auto) 1 Urine RBC (Auto) 1 Ur Squamous Epith Cells 1 Urine Bacteria Rare Ur Random Sodium 36 Assessment & Plan (1) Bronchiectasis Status: Acute Comment: continue antibiotics. Chest PT. Mucolytics and nebulizer treatment. steroids (2) ILD (interstitial lung disease) Status: Acute (3) COPD (chronic obstructive pulmonary disease) Status: Acute
[2018-06-22] MEDS: Albuterol-Ipratrop 3 mg / 0.5 (3 ml) UD INH SCH ×6 (00:04→19:15)
[2018-06-22] MEDS: MethylPREDNISolone 40 mg Vial IVP SCH ×3 (00:48→17:54)
[2018-06-22] MEDS: Sodium Chloride 0.9% 1,000 ML IV SCH ×3 (00:50→22:02)
[2018-06-22 07:20] LABS: HEMOGLOBIN 7.3 g/dL (12.0-18.0); MEAN CELL VOLUME 101.9 fL (80.0-94.0); MEAN CORPUSCULAR HEMOGLOBIN 34.6 pg (27.0-31.0); MEAN CORPUSCULAR HGB CONC 33.9 g/dL (33.0-37.0); MEAN PLATELET VOLUME 7.6 fL (7.2-11.7); RBC 2.13 Mil/uL (4.40-5.90); RED CELL DISTRIBUTION WIDTH 13.2 % (11.5-14.5); WHITE BLOOD COUNT 9.5 K/uL (4.8-10.8)
--- NOTE | 2018-06-22 07:29 | CP.PCM.PN ---
<Leroy Reed - Last Filed: 06/22/18 14:11> Subjective - Date & Time of Evaluation Date of Evaluation: 06/22/18 Time of Evaluation: 07:29 - Subjective Subjective: PGY-1 Medicine Progress Note for Dr. Bosch Patient seen and examined at bedside this AM. No acute events reported overnight. Pt endorses improved sob, continues to have dry cough. No other acute somatic complaints at this time. Objective - Vital Signs/Intake and Output Vital Signs (last 24 hours): Temp Pulse Resp BP Pulse Ox 97.8 F 87 20 134/64 99 06/21/18 23:22 06/21/18 23:22 06/21/18 23:22 06/21/18 23:22 06/21/18 23:22 Intake and Output: 06/22/18 06/22/18 06:59 18:59 Intake Total 1000 Balance 1000 - Medications Medications: Current Medications Albuterol/Ipratropium (Duoneb 3 Mg/0.5 Mg (3 Ml) Ud) 3 ml INH RQ4 [facility] Last Admin: 06/22/18 03:39 Dose: Not Given Dextrose (Dextrose 50% Inj) 0 ml IV STAT PRN; Protocol PRN Reason: Hypoglycemia Protocol Dextrose (Glutose 15) 0 gm PO ONCE PRN; Protocol PRN Reason: Hypoglycemia Protocol Enoxaparin Sodium (Lovenox) 40 mg SC DAILY [facility] Last Admin: 06/21/18 10:04 Dose: 40 mg Glucagon (Glucagen Diagnostic Kit) 0 mg IM STAT PRN; Protocol PRN Reason: Hypoglycemia Protocol Azithromycin 500 mg/ Sodium (Chloride) 250 mls @ 250 mls/hr IVPB Q24H [facility]; Protocol Last Admin: 06/21/18 08:31 Dose: 250 mls/hr Ceftriaxone Sodium 1 gm/ (Sodium Chloride) 100 mls @ 100 mls/hr IVPB DAILY [facility]; Protocol Last Admin: 06/21/18 10:03 Dose: 100 mls/hr Dextrose (Dextrose 5% In Water 1000 Ml) 1,000 mls @ 0 mls/hr IV .Q0M PRN; Protocol PRN Reason: Hypoglycemia Protocol Sodium Chloride (Sodium Chloride 0.9%) 1,000 mls @ 100 mls/hr IV .Q10H [facility] Last Admin: 06/22/18 05:32 Dose: Not Given Insulin Human Regular (Novolin R) 0 unit SC ACHS [facility]; Protocol Last Admin: 06/21/18 21:43 Dose: Not Given Methylprednisolone (Solu-Medrol) 40 mg IVP Q8H [facility] Last Admin: 06/22/18 00:48 Dose: 40 mg Pantoprazole Sodium (Protonix Inj) 40 mg IVP DAILY [facility] Last Admin: 06/21/18 10:04 Dose: 40 mg - Labs Labs: 06/22/18 06:41 06/21/18 14:04 - Constitutional Appears: Non-toxic, No Acute Distress - Head Exam Head Exam: ATRAUMATIC, NORMAL INSPECTION, NORMOCEPHALIC - Eye Exam Eye Exam: EOMI, Normal appearance, PERRL Pupil Exam: NORMAL ACCOMODATION - ENT Exam ENT Exam: Mucous Membranes Moist, Normal Exam - Neck Exam Neck Exam: Full ROM, Normal Inspection - Respiratory Exam Respiratory Exam: Wheezes, NORMAL BREATHING PATTERN. absent: Accessory Muscle Use, Rales, Rhonchi, Respiratory Distress, Stridor - Cardiovascular Exam Cardiovascular Exam: REGULAR RHYTHM, +S1, +S2 - GI/Abdominal Exam GI & Abdominal Exam: Soft, Normal Bowel Sounds. absent: Distended, Firm, Guarding, Rigid, Tenderness, Organomegaly - Extremities Exam Extremities Exam: Full ROM, Normal Capillary Refill, Normal Inspection. absent: Calf Tenderness, Pedal Edema - Back Exam Back Exam: NORMAL INSPECTION - Neurological Exam Neurological Exam: Alert, Awake, Oriented x3 - Skin Skin Exam: Dry, Intact, Normal Color, Warm Assessment and Plan - Assessment and Plan (Free Text) Assessment: 82 year old M with PMHx of HTN, HLD, DM, COPD, CKD, anemia presenting to ED worsening sob, productive cough, subjective fevers in setting of COPD exacerbation. Plan: COPD exacerbation -afebrile, no leukocytosis -improved sob -CXR (06/20): R basilar infiltrate, possible PNA -CT chest (06/20): reports only a lot of interstitial disease and honeycombing seen at the basis and at the apex -blood culture, urine culture (06/20): no growth -f/u sputum cx -Pulm recs (Dr. Post) appreciated -[facility] -solumedrol 80 mg IV -azithromycin, rocephin -slow IVF Worsening Cr, CKD Stage IV Prior hx of nonobstructing renal calculi -BUN/CR on admission: 73/4.1 -baseline Cr 2.2 (08/2017) -GFR 14 -Nephrology (Dr. Dutton) recs appreciated -continue IVF -start ESAs -Renal u/s (06/22): echogenic renal parenchyma. Nonobstructing 4 mm R lower pole calculus, no hydronephrosis or obstructing stone b/l Chronic Anemia, likely 2/2 underlying CKD -Nephrology recs (Dr. Dutton) appreciated -begin Procrit 10,000 units SC MWF HTN -normotensive, continue to monitor -home med held DM -home sulfonyurea on hold due to renal function -ISS -accuchecks ACHS -hypoglycemic protocol PPx, Diet, Disposition -DVT ppx: scds, lovenox -GI: protonix -Diet: renal -PT/OT on board Case discussed with Dr. Danitza Reed DO, PGY-1 <Anderson Bosch - Last Filed: 06/22/18 14:55> Objective - Vital Signs/Intake and Output Vital Signs (last 24 hours): Temp Pulse Resp BP Pulse Ox 97.9 F 91 H 20 142/66 96 06/22/18 08:22 06/22/18 08:22 06/22/18 08:22 06/22/18 08:22 06/22/18 11:44 Intake and Output: 06/22/18 06/22/18 06:59 18:59 Intake Total 1000 1480 Balance 1000 1480 - Medications Medications: Current Medications Albuterol/Ipratropium (Duoneb 3 Mg/0.5 Mg (3 Ml) Ud) 3 ml INH RQ4 [facility] Last Admin: 06/22/18 11:38 Dose: 3 ml Dextrose (Dextrose 50% Inj) 0 ml IV STAT PRN; Protocol PRN Reason: Hypoglycemia Protocol Dextrose (Glutose 15) 0 gm PO ONCE PRN; Protocol PRN Reason: Hypoglycemia Protocol Enoxaparin Sodium (Lovenox) 40 mg SC DAILY [facility] Last Admin: 06/22/18 09:02 Dose: 40 mg Epoetin Justino (Procrit) 10,000 unit SC MWF [facility] Glucagon (Glucagen Diagnostic Kit) 0 mg IM STAT PRN; Protocol PRN Reason: Hypoglycemia Protocol Azithromycin 500 mg/ Sodium (Chloride) 250 mls @ 250 mls/hr IVPB Q24H [facility]; Protocol Last Admin: 06/22/18 08:00 Dose: 250 mls/hr Ceftriaxone Sodium 1 gm/ (Sodium Chloride) 100 mls @ 100 mls/hr IVPB DAILY [facility]; Protocol Last Admin: 06/22/18 09:01 Dose: 100 mls/hr Dextrose (Dextrose 5% In Water 1000 Ml) 1,000 mls @ 0 mls/hr IV .Q0M PRN; Protocol PRN Reason: Hypoglycemia Protocol Sodium Chloride (Sodium Chloride 0.9%) 1,000 mls @ 100 mls/hr IV .Q10H [facility] Last Admin: 06/22/18 05:32 Dose: Not Given Insulin Human Regular (Novolin R) 0 unit SC ACHS [facility]; Protocol Last Admin: 06/22/18 12:16 Dose: 4 u Methylprednisolone (Solu-Medrol) 40 mg IVP Q8H [facility] Last Admin: 06/22/18 09:01 Dose: 40 mg Pantoprazole Sodium (Protonix Inj) 40 mg IVP DAILY [facility] Last Admin: 06/22/18 09:01 Dose: 40 mg - Labs Labs: 06/22/18 06:41 06/22/18 06:41 Attending/Attestation - Attestation I have personally seen and examined this patient.: Yes I have fully participated in the care of the patient.: Yes I have reviewed all pertinent clinical information, including history, physical exam and plan: Yes Notes (Text): 06/22/18 14:55 Medical attending: Patient was seen and examined by me, agrees the above note by the medical technician. The patient was not in any acute distress today, he reported that his breathing was substantially better than compared to when he came in 2 nights ago. He remains on the IV solumedrol and nebulizer treatments. His BUN and creatinine did decrease. The creatinine came down to 3.2. As mentioned previously the patient is on slow intravenous fluids and we've held his oral Lasix for the time being. Currently were pending some lab work to return that were ordered by nephrology. Another important item to note is the ongoing anemia, hemoglobin was 7.3. He denied chest pain, denied palpitations, denied shortness of breath. We will have to clarify if the patient should get a blood transfusion or not thank you Anderson Bosch
[2018-06-22] MEDS: Azithromycin 500 MG in Sodium Chloride 0.9% 250 ML IVPB SCH (08:00)
[2018-06-22 08:08] LABS: ALB/GLOB RATIO 1.2 (1.0-2.1); ALBUMIN 3.5 g/dL (3.5-5.0); CALCIUM 8.3 mg/dl (8.6-10.4)
[2018-06-22] MEDS: (Novolin R) Insulin Human Regular 100 units/ml vial SC SCH ×4 (08:30→22:02)
[2018-06-22] MEDS: Enoxaparin 40 mg Syringe SC SCH (09:02)
--- NOTE | 2018-06-22 12:38 | US ---
Date of service: 06/22/2018 PROCEDURE: Ultrasound of the Kidneys HISTORY: debbie COMPARISON: None available. TECHNIQUE: Sonogram of the kidneys. FINDINGS: RIGHT KIDNEY: Measures: 9.0 x 4.0 x 4.7 cm. Echogenic renal parenchyma. 4 mm echogenic focus with posterior acoustic shadowing noted in the lower pole consistent with nonobstructing calculus. No hydronephrosis or obstructing calculus identified. LEFT KIDNEY: Measures: 3.9 x 4.7 x 5.1 cm. Echogenic renal parenchyma. No hydronephrosis or obstructing calculus identified. OTHER FINDINGS: Under distention of the urinary bladder precludes adequate evaluation. IMPRESSION: Echogenic renal parenchyma may be seen in the setting of medical renal disease. Nonobstructing 4 mm right lower pole calculus. No hydronephrosis or obstructing calculus identified bilaterally.
--- NOTE | 2018-06-22 13:16 | CP.PCM.PN ---
Subjective - Date & Time of Evaluation Date of Evaluation: 06/22/18 Time of Evaluation: 13:13 - Subjective Subjective: Feels better Creat decreasing with IV fluids- had been on diuretic as outpatient Hg dropped Renal US showed echogenic kidneys- also small left kidney if measurement is correct still mild wheezing Objective - Vital Signs/Intake and Output Vital Signs (last 24 hours): Temp Pulse Resp BP Pulse Ox 97.9 F 91 H 20 142/66 96 06/22/18 08:22 06/22/18 08:22 06/22/18 08:22 06/22/18 08:22 06/22/18 11:44 Intake and Output: 06/22/18 06/22/18 06:59 18:59 Intake Total 1000 Balance 1000 - Medications Medications: Current Medications Albuterol/Ipratropium (Duoneb 3 Mg/0.5 Mg (3 Ml) Ud) 3 ml INH RQ4 [facility] Last Admin: 06/22/18 11:38 Dose: 3 ml Dextrose (Dextrose 50% Inj) 0 ml IV STAT PRN; Protocol PRN Reason: Hypoglycemia Protocol Dextrose (Glutose 15) 0 gm PO ONCE PRN; Protocol PRN Reason: Hypoglycemia Protocol Enoxaparin Sodium (Lovenox) 40 mg SC DAILY [facility] Last Admin: 06/22/18 09:02 Dose: 40 mg Glucagon (Glucagen Diagnostic Kit) 0 mg IM STAT PRN; Protocol PRN Reason: Hypoglycemia Protocol Azithromycin 500 mg/ Sodium (Chloride) 250 mls @ 250 mls/hr IVPB Q24H [facility]; Protocol Last Admin: 06/22/18 08:00 Dose: 250 mls/hr Ceftriaxone Sodium 1 gm/ (Sodium Chloride) 100 mls @ 100 mls/hr IVPB DAILY [facility]; Protocol Last Admin: 06/22/18 09:01 Dose: 100 mls/hr Dextrose (Dextrose 5% In Water 1000 Ml) 1,000 mls @ 0 mls/hr IV .Q0M PRN; Protocol PRN Reason: Hypoglycemia Protocol Sodium Chloride (Sodium Chloride 0.9%) 1,000 mls @ 100 mls/hr IV .Q10H [facility] Last Admin: 06/22/18 05:32 Dose: Not Given Insulin Human Regular (Novolin R) 0 unit SC ACHS [facility]; Protocol Last Admin: 06/22/18 12:16 Dose: 4 u Methylprednisolone (Solu-Medrol) 40 mg IVP Q8H [facility] Last Admin: 06/22/18 09:01 Dose: 40 mg Pantoprazole Sodium (Protonix Inj) 40 mg IVP DAILY [facility] Last Admin: 06/22/18 09:01 Dose: 40 mg - Labs Labs: 06/22/18 06:41 06/22/18 06:41 - Constitutional Appears: No Acute Distress, Chronically Ill - Head Exam Head Exam: ATRAUMATIC, NORMAL INSPECTION - Eye Exam Eye Exam: EOMI, Normal appearance - Neck Exam Neck Exam: Normal Inspection. absent: Tenderness - Respiratory Exam Respiratory Exam: Wheezes, NORMAL BREATHING PATTERN - Cardiovascular Exam Cardiovascular Exam: REGULAR RHYTHM, +S1 - GI/Abdominal Exam GI & Abdominal Exam: Soft. absent: Tenderness - Extremities Exam Extremities Exam: Normal Inspection. absent: Tenderness - Neurological Exam Neurological Exam: Awake, CN II-XII Intact - Skin Skin Exam: Dry, Warm Assessment and Plan (1) Pulmonary fibrosis Status: Acute (2) KINJAL (acute kidney injury) Status: Acute (3) CKD stage 4 due to type 2 diabetes mellitus Status: Acute (4) Dehydration Status: Acute (5) Acute on chronic renal insufficiency Status: Acute (6) COPD exacerbation Status: Acute - Assessment and Plan (Free Text) Plan: continue Iv fluids start ESAs ask radiology to clarify left renal US size steroids, respiratory meds as per pulmonary
--- NOTE | 2018-06-22 13:16 | CP.PCM.CON ---
History of Present Illness - History of Present Illness History of Present Illness: 82 year old male with a history of HTN, DM, HL, CKD, COPD, admitted with shortness of breath, productive cough with sputum, with anemia. The patient is well known to me from prior evaluation for anemia. His work up was consistent with anemia of CKD and he has received intermittent Procrit with iron. He denies abnormal bleeding and bruising. Past medical history: HTN, DM, HL, CKD, COPD Past surgical history: Hernia repair. Family history: Denies hematologic and oncologic problems Allergies: Aspirin Review of systems: All remaining review of systems including HEENT, cardiovascular, respiratory, gastrointestinal, genitourinary, musculoskeletal, dermatologic, neurologic, and psychiatric are negative unless mentioned in the HPI. Past Patient History - Infectious Disease Hx of Infectious Diseases: None - Past Medical History & Family History Past Medical History?: Yes Past Family History: Reviewed and not pertinent - Past Social History Smoking Status: Former Smoker Chewing Tobacco Use: No Cigar Use: No Alcohol: Occasional Drugs: Denies Home Situation {Lives}: Alone - CARDIAC Hx Hypertension: Yes - PULMONARY Hx Chronic Obstructive Pulmonary Disease (COPD): Yes - HEENT Other/Comment: wears glasses - RENAL Hx Chronic Kidney Disease: Yes (stage 3 kidney) - ENDOCRINE/METABOLIC Hx Endocrine Disorders: Yes Hx Diabetes Mellitus Type 2: Yes - HEMATOLOGICAL/ONCOLOGICAL Hx Blood Disorders: Yes Hx Blood Transfusions: Yes - MUSCULOSKELETAL/RHEUMATOLOGICAL Hx Arthritis: Yes - GASTROINTESTINAL Hx Gastrointestinal Disorders: Yes Other/Comment: HERNIA 3 weeks ago - PSYCHIATRIC Hx Substance Use: No - SURGICAL HISTORY Hx Surgeries: Yes Hx Herniorrhaphy: Yes (RIGHT INGUINAL) Other/Comment: patient didnt give no further information at this time - ANESTHESIA Hx Anesthesia: Yes Hx Anesthesia Reactions: No Hx Malignant Hyperthermia: No Meds Allergies/Adverse Reactions: Allergies Allergy/AdvReac Type Severity Reaction Status Date / Time aspirin Allergy Severe PAIN Verified 06/20/18 14:47 - Medications Medications: Current Medications Albuterol/Ipratropium (Duoneb 3 Mg/0.5 Mg (3 Ml) Ud) 3 ml INH RQ4 [facility] Last Admin: 06/22/18 11:38 Dose: 3 ml Dextrose (Dextrose 50% Inj) 0 ml IV STAT PRN; Protocol PRN Reason: Hypoglycemia Protocol Dextrose (Glutose 15) 0 gm PO ONCE PRN; Protocol PRN Reason: Hypoglycemia Protocol Enoxaparin Sodium (Lovenox) 40 mg SC DAILY [facility] Last Admin: 06/22/18 09:02 Dose: 40 mg Glucagon (Glucagen Diagnostic Kit) 0 mg IM STAT PRN; Protocol PRN Reason: Hypoglycemia Protocol Azithromycin 500 mg/ Sodium (Chloride) 250 mls @ 250 mls/hr IVPB Q24H [facility]; Protocol Last Admin: 06/22/18 08:00 Dose: 250 mls/hr Ceftriaxone Sodium 1 gm/ (Sodium Chloride) 100 mls @ 100 mls/hr IVPB DAILY [facility]; Protocol Last Admin: 06/22/18 09:01 Dose: 100 mls/hr Dextrose (Dextrose 5% In Water 1000 Ml) 1,000 mls @ 0 mls/hr IV .Q0M PRN; Protocol PRN Reason: Hypoglycemia Protocol Sodium Chloride (Sodium Chloride 0.9%) 1,000 mls @ 100 mls/hr IV .Q10H [facility] Last Admin: 06/22/18 05:32 Dose: Not Given Insulin Human Regular (Novolin R) 0 unit SC ACHS [facility]; Protocol Last Admin: 06/22/18 12:16 Dose: 4 u Methylprednisolone (Solu-Medrol) 40 mg IVP Q8H [facility] Last Admin: 06/22/18 09:01 Dose: 40 mg Pantoprazole Sodium (Protonix Inj) 40 mg IVP DAILY [facility] Last Admin: 06/22/18 09:01 Dose: 40 mg Physical Exam - Head Exam Head Exam: ATRAUMATIC - Eye Exam Eye Exam: Normal appearance - ENT Exam ENT Exam: Mucous Membranes Dry - Respiratory Exam Respiratory Exam: NORMAL BREATHING PATTERN - Cardiovascular Exam Cardiovascular Exam: +S1, +S2 - GI/Abdominal Exam GI & Abdominal Exam: Normal Bowel Sounds - Extremities Exam Extremities exam: Positive for: normal inspection - Neurological Exam Neurological exam: Oriented x3 - Psychiatric Exam Psychiatric exam: Normal Affect, Normal Mood - Skin Skin Exam: Warm Results - Vital Signs Recent Vital Signs: Last Vital Signs Temp 97.9 F 06/22/18 08:22 Pulse 91 H 06/22/18 08:22 Resp 20 06/22/18 08:22 BP 142/66 06/22/18 08:22 Pulse Ox 96 06/22/18 11:44 - Labs Result Diagrams: 06/23/18 06:58 06/23/18 06:58 Labs: Laboratory Results - last 24 hr 06/21/18 06/21/18 06/21/18 14:04 14:04 17:04 WBC 6.8 RBC 2.31 L Hgb 8.0 L Hct 23.7 L MCV 102.5 H MCH 34.8 H MCHC 33.9 RDW 13.1 Plt Count 198 MPV 7.6 Sodium 140 Potassium 4.7 Chloride 109 H Carbon Dioxide 17 L Anion Gap 20 BUN 73 H Creatinine 3.6 H Est GFR ( Amer) 20 Est GFR (Non-Af Amer) 16 Random Glucose 246 H D Calcium 8.5 L Phosphorus 4.3 Magnesium 1.7 % Saturation Ferritin Total Bilirubin 0.3 AST 17 D ALT 14 L Alkaline Phosphatase 60 Total Protein 7.0 Albumin 3.7 Globulin 3.3 Albumin/Globulin Ratio 1.1 Urine Color Urine Clarity Urine pH Ur Specific Poplar Urine Protein Urine Glucose (UA) Urine Ketones Urine Blood Urine Nitrate Urine Bilirubin Urine Urobilinogen Ur Leukocyte Esterase Urine WBC (Auto) Urine RBC (Auto) Ur Squamous Epith Cells Urine Bacteria Ur Random Sodium 36 06/21/18 06/22/18 06/22/18 17:04 06:41 06:41 WBC 9.5 RBC 2.13 L Hgb 7.3 L Hct 21.7 L MCV 101.9 H MCH 34.6 H MCHC 33.9 RDW 13.2 Plt Count 185 MPV 7.6 Sodium 139 Potassium 4.5 Chloride 109 H Carbon Dioxide 20 L Anion Gap 15 BUN 69 H Creatinine 3.2 H Est GFR ( Amer) 23 Est GFR (Non-Af Amer) 19 Random Glucose 225 H Calcium 8.3 L Phosphorus 4.6 H Magnesium 1.5 L % Saturation Ferritin 323.0 Total Bilirubin 0.2 AST 19 ALT 18 L D Alkaline Phosphatase 59 Total Protein 6.4 Albumin 3.5 Globulin 2.9 Albumin/Globulin Ratio 1.2 Urine Color Yellow Urine Clarity Clear Urine pH 5.0 Ur Specific P[place]ar 1.013 Urine Protein 2+ H Urine Glucose (UA) 2+ H Urine Ketones Negative Urine Blood 1+ H Urine Nitrate Negative Urine Bilirubin Negative Urine Urobilinogen Normal Ur Leukocyte Esterase Neg Urine WBC (Auto) 1 Urine RBC (Auto) 1 Ur Squamous Epith Cells 1 Urine Bacteria Rare Ur Random Sodium 06/22/18 06:41 WBC RBC Hgb Hct MCV MCH MCHC RDW Plt Count MPV Sodium Potassium Chloride Carbon Dioxide Anion Gap BUN Creatinine Est GFR ( Amer) Est GFR (Non-Af Amer) Random Glucose Calcium Phosphorus Magnesium % Saturation 44 Ferritin Total Bilirubin AST ALT Alkaline Phosphatase Total Protein Albumin Globulin Albumin/Globulin Ratio Urine Color Urine Clarity Urine pH Ur Specific Poplar Urine Protein Urine Glucose (UA) Urine Ketones Urine Blood Urine Nitrate Urine Bilirubin Urine Urobilinogen Ur Leukocyte Esterase Urine WBC (Auto) Urine RBC (Auto) Ur Squamous Epith Cells Urine Bacteria Ur Random Sodium Assessment & Plan (1) Anemia Assessment and Plan: anemia of CKD; on Procrit will check retic count, b12, folate, FOBT Status: Acute (2) Monoclonal gammopathy Assessment and Plan: repeat SPEP, free light chain assay Thank you for this interesting consult. Status: Acute
[2018-06-22] MEDS ORDERED: Magnesium Sulfate 1 gm in D5W 1 GM/100 ML BAG IVPB ONE (14:00)
--- NOTE | 2018-06-22 15:33 | CP.PCM.PN ---
Subjective - Date & Time of Evaluation Date of Evaluation: 06/22/18 Time of Evaluation: 13:20 - Subjective Subjective: 82 year old male pmh COPD, pulm fibrosis, bronchiectasis, former smoker consulted for shortness of breath Patient evaluated at bedside. Reported slight dry cough. Denies chest pain, SOB, sputum production, hemoptysis Afebrile. SpO2 96% on NC Rales bilaterally on lung exam. 06/22- WBC 9.5, Cl 109, CO2 20 influenza negative cultures no growth to date Continue antibiotics, mucolytics, nebulizer treatments, steroids. follow culture results continue antibiotics Objective - Vital Signs/Intake and Output Vital Signs (last 24 hours): Temp Pulse Resp BP Pulse Ox 97.9 F 91 H 20 142/66 96 06/22/18 08:22 06/22/18 08:22 06/22/18 08:22 06/22/18 08:22 06/22/18 11:44 Intake and Output: 06/22/18 06/22/18 06:59 18:59 Intake Total 1000 1480 Balance 1000 1480 - Medications Medications: Current Medications Albuterol/Ipratropium (Duoneb 3 Mg/0.5 Mg (3 Ml) Ud) 3 ml INH RQ4 [facility] Last Admin: 06/22/18 11:38 Dose: 3 ml Dextrose (Dextrose 50% Inj) 0 ml IV STAT PRN; Protocol PRN Reason: Hypoglycemia Protocol Dextrose (Glutose 15) 0 gm PO ONCE PRN; Protocol PRN Reason: Hypoglycemia Protocol Enoxaparin Sodium (Lovenox) 40 mg SC DAILY [facility] Last Admin: 06/22/18 09:02 Dose: 40 mg Epoetin Justino (Procrit) 10,000 unit SC MWF [facility] Glucagon (Glucagen Diagnostic Kit) 0 mg IM STAT PRN; Protocol PRN Reason: Hypoglycemia Protocol Azithromycin 500 mg/ Sodium (Chloride) 250 mls @ 250 mls/hr IVPB Q24H [facility]; Protocol Last Admin: 06/22/18 08:00 Dose: 250 mls/hr Ceftriaxone Sodium 1 gm/ (Sodium Chloride) 100 mls @ 100 mls/hr IVPB DAILY [facility]; Protocol Last Admin: 06/22/18 09:01 Dose: 100 mls/hr Dextrose (Dextrose 5% In Water 1000 Ml) 1,000 mls @ 0 mls/hr IV .Q0M PRN; Protocol PRN Reason: Hypoglycemia Protocol Sodium Chloride (Sodium Chloride 0.9%) 1,000 mls @ 100 mls/hr IV .Q10H [facility] Last Admin: 06/22/18 05:32 Dose: Not Given Insulin Human Regular (Novolin R) 0 unit SC ACHS [facility]; Protocol Last Admin: 06/22/18 12:16 Dose: 4 u Methylprednisolone (Solu-Medrol) 40 mg IVP Q8H [facility] Last Admin: 06/22/18 09:01 Dose: 40 mg Pantoprazole Sodium (Protonix Inj) 40 mg IVP DAILY [facility] Last Admin: 06/22/18 09:01 Dose: 40 mg - Labs Labs: 06/22/18 06:41 06/22/18 06:41 Assessment and Plan (1) Bronchiectasis Status: Acute (2) ILD (interstitial lung disease) Status: Acute (3) COPD (chronic obstructive pulmonary disease) Status: Acute
[2018-06-23] MEDS: MethylPREDNISolone 40 mg Vial IVP SCH ×3 (00:08→17:34)
[2018-06-23] MEDS: Albuterol-Ipratrop 3 mg / 0.5 (3 ml) UD INH SCH ×6 (04:30→20:03)
[2018-06-23] MEDS: Sodium Chloride 0.9% 1,000 ML IV SCH (04:52)
[2018-06-23 07:06] LABS: BASO % 0.1 % (0.0-2.0); HEMOGLOBIN 7.5 g/dL (12.0-18.0); LYMPH # 0.2 K/uL (1.0-4.3); LYMPH % 2.3 % (20.0-40.0); MEAN CORPUSCULAR HEMOGLOBIN 34.7 pg (27.0-31.0); MEAN PLATELET VOLUME 7.6 fL (7.2-11.7); MONO # 0.1 K/uL (0.0-0.8); MONO % 1.8 % (0.0-10.0); NEUT % 95.8 % (50.0-75.0); PLATELET COUNT 188 K/uL (130-400); RBC 2.15 Mil/uL (4.40-5.90); WHITE BLOOD COUNT 8.4 K/uL (4.8-10.8)
[2018-06-23 07:42] LABS: ALB/GLOB RATIO 1.1 (1.0-2.1); ALBUMIN 3.4 g/dL (3.5-5.0); CALCIUM 8.4 mg/dl (8.6-10.4)
--- NOTE | 2018-06-23 07:50 | CP.PCM.PN ---
<Leroy Reed - Last Filed: 06/23/18 16:07> Subjective - Date & Time of Evaluation Date of Evaluation: 06/23/18 Time of Evaluation: 07:50 - Subjective Subjective: PGY-1 Medicine Progress Note for Dr. Bosch Patient seen and examined at bedside this AM. In no acute distress. No overnight events reported. Continues to have chronic dry cough, some sob. No fevers/chills, headaches, chest pain, palpitations, abdominal pain, n/v/d/c. Objective - Vital Signs/Intake and Output Vital Signs (last 24 hours): Temp Pulse Resp BP Pulse Ox 97.9 F 82 20 153/73 H 98 06/23/18 00:00 06/23/18 00:00 06/23/18 00:00 06/23/18 00:00 06/23/18 00:00 Intake and Output: 06/23/18 06/23/18 06:59 18:59 Intake Total 950 Output Total 1000 Balance -50 - Medications Medications: Current Medications Albuterol/Ipratropium (Duoneb 3 Mg/0.5 Mg (3 Ml) Ud) 3 ml INH RQ4 NEW Last Admin: 06/23/18 07:47 Dose: 3 ml Dextrose (Dextrose 50% Inj) 0 ml IV STAT PRN; Protocol PRN Reason: Hypoglycemia Protocol Dextrose (Glutose 15) 0 gm PO ONCE PRN; Protocol PRN Reason: Hypoglycemia Protocol Enoxaparin Sodium (Lovenox) 40 mg SC DAILY [facility] Last Admin: 06/22/18 09:02 Dose: 40 mg Epoetin Justino (Procrit) 10,000 unit SC F [facility] Glucagon (Glucagen Diagnostic Kit) 0 mg IM STAT PRN; Protocol PRN Reason: Hypoglycemia Protocol Azithromycin 500 mg/ Sodium (Chloride) 250 mls @ 250 mls/hr IVPB Q24H NEW; Protocol Last Admin: 06/22/18 08:00 Dose: 250 mls/hr Ceftriaxone Sodium 1 gm/ (Sodium Chloride) 100 mls @ 100 mls/hr IVPB DAILY [facility]; Protocol Last Admin: 06/22/18 09:01 Dose: 100 mls/hr Dextrose (Dextrose 5% In Water 1000 Ml) 1,000 mls @ 0 mls/hr IV .Q0M PRN; Protocol PRN Reason: Hypoglycemia Protocol Sodium Chloride (Sodium Chloride 0.9%) 1,000 mls @ 100 mls/hr IV .Q10H [facility] Last Admin: 06/23/18 04:52 Dose: 100 mls/hr Insulin Human Regular (Novolin R) 0 unit SC ACHS [facility]; Protocol Last Admin: 06/22/18 22:02 Dose: Not Given Methylprednisolone (Solu-Medrol) 40 mg IVP Q8H [facility] Last Admin: 06/23/18 00:08 Dose: 40 mg Pantoprazole Sodium (Protonix Inj) 40 mg IVP DAILY [facility] Last Admin: 06/22/18 09:01 Dose: 40 mg - Labs Labs: 06/23/18 06:58 06/23/18 06:58 - Constitutional Appears: Non-toxic, No Acute Distress - Head Exam Head Exam: ATRAUMATIC, NORMAL INSPECTION, NORMOCEPHALIC - Eye Exam Eye Exam: EOMI, Normal appearance, PERRL Pupil Exam: NORMAL ACCOMODATION - ENT Exam ENT Exam: Mucous Membranes Moist, Normal Exam - Neck Exam Neck Exam: Full ROM, Normal Inspection - Respiratory Exam Respiratory Exam: Rales, NORMAL BREATHING PATTERN. absent: Accessory Muscle Use, Respiratory Distress - Cardiovascular Exam Cardiovascular Exam: REGULAR RHYTHM, +S1, +S2 - GI/Abdominal Exam GI & Abdominal Exam: Soft, Normal Bowel Sounds. absent: Distended, Firm, Guarding, Rigid, Tenderness - Extremities Exam Extremities Exam: Full ROM, Normal Capillary Refill, Normal Inspection. absent: Calf Tenderness, Pedal Edema - Back Exam Back Exam: NORMAL INSPECTION - Neurological Exam Neurological Exam: Alert, Awake, Oriented x3 - Psychiatric Exam Psychiatric exam: Normal Affect, Normal Mood - Skin Skin Exam: Dry, Intact, Normal Color, Warm Assessment and Plan - Assessment and Plan (Free Text) Assessment: 82 year old M with PMHx of HTN, HLD, DM, COPD, CKD, anemia presenting to ED worsening sob, productive cough, subjective fevers in setting of COPD exacerbation. Plan: COPD exacerbation -afebrile, no leukocytosis -CXR (06/20): R basilar infiltrate, possible PNA -CT chest (06/20): reports only a lot of interstitial disease and honeycombing seen at the basis and at the apex -blood culture, urine culture (06/20): no growth -sputum cx: prelim gram negative maggie -Pulm recs (Dr. Mercado) appreciated -d/c rocephin, begin cefepime -duonebs new -solumedrol 80 mg IV -azithromycin, cefepime -IVF d/c'd CKD Stage IV -Cr decreased to 2.9, close to baseline -baseline Cr 2.2 (08/2017) -Nephrology (Dr. 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 Nonobstructing 4 mm R lower pole calculus, no hydronephrosis or obstructing stone b/l Chronic Anemia, likely 2/2 underlying CKD -Nephrology recs (Dr. Dutton) appreciated -begin Procrit 10,000 units SC MWF HTN -normotensive, continue to monitor -home med held DM -home sulfonyurea on hold due to renal function -ISS -accuchecks ACHS -hypoglycemic protocol PPx, Diet, Disposition -DVT ppx: scds, lovenox -GI: protonix -Diet: renal -PT/OT on board Case discussed with Dr. Danitza Reed DO, PGY-1 <Anderson Bosch H - Last Filed: 06/23/18 18:33> Objective - Vital Signs/Intake and Output Vital Signs (last 24 hours): Temp Pulse Resp BP Pulse Ox 97.8 F 90 20 145/71 98 06/23/18 16:51 06/23/18 16:51 06/23/18 16:51 06/23/18 16:51 06/23/18 16:51 Intake and Output: 06/23/18 06/23/18 06:59 18:59 Intake Total 950 1430 Output Total 1000 950 Balance -50 480 - Medications Medications: Current Medications Albuterol/Ipratropium (Duoneb 3 Mg/0.5 Mg (3 Ml) Ud) 3 ml INH RQ4 [facility] Last Admin: 06/23/18 11:10 Dose: 3 ml Dextrose (Dextrose 50% Inj) 0 ml IV STAT PRN; Protocol PRN Reason: Hypoglycemia Protocol Dextrose (Glutose 15) 0 gm PO ONCE PRN; Protocol PRN Reason: Hypoglycemia Protocol Enoxaparin Sodium (Lovenox) 40 mg SC DAILY [facility] Last Admin: 06/23/18 09:01 Dose: 40 mg Epoetin Justino (Procrit) 10,000 unit SC MWF [facility] Glucagon (Glucagen Diagnostic Kit) 0 mg IM STAT PRN; Protocol PRN Reason: Hypoglycemia Protocol Guaifenesin (Robitussin) 200 mg PO Q4H PRN PRN Reason: Cough and congestion Last Admin: 06/23/18 12:28 Dose: 200 mg Azithromycin 500 mg/ Sodium (Chloride) 250 mls @ 250 mls/hr IVPB Q24H NEW; Protocol Last Admin: 06/23/18 08:50 Dose: 250 mls/hr Dextrose (Dextrose 5% In Water 1000 Ml) 1,000 mls @ 0 mls/hr IV .Q0M PRN; Protocol PRN Reason: Hypoglycemia Protocol Cefepime HCl 1 gm/ Sodium (Chloride) 100 mls @ 100 mls/hr IVPB Q12H [facility]; Protocol Last Admin: 06/23/18 13:35 Dose: 100 mls/hr Insulin Human Regular (Novolin R) 0 unit SC ACHS [facility]; Protocol Last Admin: 06/23/18 17:34 Dose: 6 u Lisinopril (Zestril) 5 mg PO DAILY [facility] Methylprednisolone (Solu-Medrol) 40 mg IVP Q8H [facility] Last Admin: 06/23/18 17:34 Dose: 40 mg Pantoprazole Sodium (Protonix Inj) 40 mg IVP DAILY [facility] Last Admin: 06/23/18 09:01 Dose: 40 mg Sodium Bicarbonate (Sodium Bicarbonate Tab) 650 mg PO DAILY [facility] Last Admin: 06/23/18 10:32 Dose: 650 mg - Labs Labs: 06/23/18 06:58 06/23/18 06:58 Attending/Attestation - Attestation I have personally seen and examined this patient.: Yes I have fully participated in the care of the patient.: Yes I have reviewed all pertinent clinical information, including history, physical exam and plan: Yes Notes (Text): 06/23/18 18:29 Medical attending: Patient was seen and examined by me, reviewed the above note by the resident and agree with the above. The patient was not in any acute distress when I came and saw him this morning. Later I saw him again with his son and daughter in law at bedside. Patient reported breathing is almost back to normal at this time. He denied having pain, tolerating diet well, bathroom ok. Creatine has decreased to 2.7 at this time. He is afebrile. Remains on IV abx at this moment- changed to IV cefpime because of a preliminary gram negative growth Patient reports he is not interrested in going to [facility] and would rather go home. I explained to him that we should see how he is tommorow and if it is ok with consults then can go home - family was present during our discussion Anderson Bosch 06/23/18 18:33
[2018-06-23] MEDS: (Novolin R) Insulin Human Regular 100 units/ml vial SC SCH ×4 (08:30→21:57)
[2018-06-23 08:39] LABS: LYMPHOCYTE 2 % (20-40); MONOCYTE 1 % (0-10); NEUTROPHIL 97 % (50-75); PLATELET ESTIMATE NORMAL (NORMAL); TOTAL CELLS COUNTED 100
[2018-06-23 08:40] LABS: ANISOCYTOSIS SLIGHT; HYPOCHROMIC SLIGHT; OVALOCYTES SLIGHT; POIKILOCYTOSIS SLIGHT
[2018-06-23] MEDS: Azithromycin 500 MG in Sodium Chloride 0.9% 250 ML IVPB SCH (08:50)
[2018-06-23] MEDS: Enoxaparin 40 mg Syringe SC SCH (09:01)
[2018-06-23 09:10] LABS: URINE 24 HOUR TOTAL PROTEIN 4173.8 mg/24hr (42-225)
--- NOTE | 2018-06-23 10:07 | CP.PCM.PN ---
Subjective - Date & Time of Evaluation Date of Evaluation: 06/23/18 Time of Evaluation: 10:04 - Subjective Subjective: c/o increase SOB this AM creat decreased to 2.7- close to baseline protein excretion rate confirms nephrotic range proteinuria BP controlled Hg still low; iron stores adequate Objective - Vital Signs/Intake and Output Vital Signs (last 24 hours): Temp Pulse Resp BP Pulse Ox 97.7 F 85 22 141/69 97 06/23/18 08:00 06/23/18 08:00 06/23/18 08:00 06/23/18 08:00 06/23/18 08:00 Intake and Output: 06/23/18 06/23/18 06:59 18:59 Intake Total 950 Output Total 1000 Balance -50 - Medications Medications: Current Medications Albuterol/Ipratropium (Duoneb 3 Mg/0.5 Mg (3 Ml) Ud) 3 ml INH RQ4 [facility] Last Admin: 06/23/18 07:47 Dose: 3 ml Dextrose (Dextrose 50% Inj) 0 ml IV STAT PRN; Protocol PRN Reason: Hypoglycemia Protocol Dextrose (Glutose 15) 0 gm PO ONCE PRN; Protocol PRN Reason: Hypoglycemia Protocol Enoxaparin Sodium (Lovenox) 40 mg SC DAILY [facility] Last Admin: 06/23/18 09:01 Dose: 40 mg Epoetin Justino (Procrit) 10,000 unit SC MWF [facility] Glucagon (Glucagen Diagnostic Kit) 0 mg IM STAT PRN; Protocol PRN Reason: Hypoglycemia Protocol Azithromycin 500 mg/ Sodium (Chloride) 250 mls @ 250 mls/hr IVPB Q24H [facility]; Protocol Last Admin: 06/23/18 08:50 Dose: 250 mls/hr Ceftriaxone Sodium 1 gm/ (Sodium Chloride) 100 mls @ 100 mls/hr IVPB DAILY [facility]; Protocol Last Admin: 06/23/18 10:01 Dose: 100 mls/hr Dextrose (Dextrose 5% In Water 1000 Ml) 1,000 mls @ 0 mls/hr IV .Q0M PRN; Protocol PRN Reason: Hypoglycemia Protocol Sodium Chloride (Sodium Chloride 0.9%) 1,000 mls @ 100 mls/hr IV .Q10H [facility] Last Admin: 06/23/18 04:52 Dose: 100 mls/hr Insulin Human Regular (Novolin R) 0 unit SC ACHS [facility]; Protocol Last Admin: 06/23/18 08:30 Dose: 4 u Methylprednisolone (Solu-Medrol) 40 mg IVP Q8H [facility] Last Admin: 06/23/18 08:48 Dose: 40 mg Pantoprazole Sodium (Protonix Inj) 40 mg IVP DAILY [facility] Last Admin: 06/23/18 09:01 Dose: 40 mg - Labs Labs: 06/23/18 06:58 06/23/18 06:58 - Constitutional Appears: No Acute Distress, Chronically Ill - Head Exam Head Exam: NORMAL INSPECTION, NORMOCEPHALIC - Eye Exam Eye Exam: EOMI, Normal appearance - Neck Exam Neck Exam: Normal Inspection. absent: Tenderness - Respiratory Exam Respiratory Exam: Rhonchi, NORMAL BREATHING PATTERN - Cardiovascular Exam Cardiovascular Exam: REGULAR RHYTHM, +S1 - GI/Abdominal Exam GI & Abdominal Exam: Soft. absent: Tenderness - Extremities Exam Extremities Exam: Normal Inspection. absent: Tenderness - Neurological Exam Neurological Exam: Awake, CN II-XII Intact - Skin Skin Exam: Dry, Warm Assessment and Plan (1) Pulmonary fibrosis Status: Acute (2) KINJAL (acute kidney injury) Status: Acute (3) CKD stage 4 due to type 2 diabetes mellitus Status: Acute (4) Dehydration Status: Acute (5) Acute on chronic renal insufficiency Status: Acute (6) COPD exacerbation Status: Acute - Assessment and Plan (Free Text) Plan: stop IV fluids re-add CARIN I Add na bicarb for met acidosis
[2018-06-23] MEDS: guaiFENesin 200 mg/10 ml Syrup UD PO PRN (12:28)
[2018-06-23 16:53] VITALS: RESP 20
--- NOTE | 2018-06-23 22:56 | CP.PCM.PN ---
Subjective - Date & Time of Evaluation Date of Evaluation: 06/23/18 Time of Evaluation: 19:00 - Subjective Subjective: Pulmonary Follow up, Covering Dr Post The patient was Seen/interviewed and examined by me at the bedside, Medical records reviewed and Management issues were discussed and formulated with the house staff. Events reviewed 82 year old male pmh COPD, pulm fibrosis, bronchiectasis, former smoker consulted for shortness of breath. On admission to hospital patient had shortness of breath not improved by nebulizer treatments as well as fever and chills. He does not use home oxygen. Today patient reports that he had increased shortness of breath and dry cough this morning. SOB has improved but dry cough continues. Denied fever, chills, chest pain, hemoptysis Patient evaluated at bedside. Afebrile. SpO2 97% on 2LPM NC Rales bilaterally with prolonged expiratory phase on lung exam. 06/23- WBC 8.4, Cl 110, CO2 18 influenza negative sputum culture gram negative rods Acute respiratory illness including right lower lobe infiltrate and recurrent pneumonia pulmonary fibrosis with randomly distributed pulmonary nodules central bonchiectasis Follow sputum culture sensitivities Follow results of Strep pneumonia antigen, Legionella antigen, mycobacterium sputum culture Albuterol q4h Continue Solumedrol at current dose Continue Nebulizer treatments Gram negative coverage indicated due to extensive pulmonary history- Stop ceftriaxone, start cefepime Objective - Vital Signs/Intake and Output Vital Signs (last 24 hours): Temp Pulse Resp BP Pulse Ox 97.8 F 90 20 145/71 98 06/23/18 16:51 06/23/18 16:51 06/23/18 16:51 06/23/18 16:51 06/23/18 16:51 Intake and Output: 06/23/18 06/24/18 18:59 06:59 Intake Total 1430 450 Output Total 950 250 Balance 480 200 - Medications Medications: Current Medications Albuterol/Ipratropium (Duoneb 3 Mg/0.5 Mg (3 Ml) Ud) 3 ml INH RQ4 [facility] Last Admin: 06/23/18 20:03 Dose: 3 ml Dextrose (Dextrose 50% Inj) 0 ml IV STAT PRN; Protocol PRN Reason: Hypoglycemia Protocol Dextrose (Glutose 15) 0 gm PO ONCE PRN; Protocol PRN Reason: Hypoglycemia Protocol Enoxaparin Sodium (Lovenox) 40 mg SC DAILY [facility] Last Admin: 06/23/18 09:01 Dose: 40 mg Epoetin Justino (Procrit) 10,000 unit SC MWF [facility] Glucagon (Glucagen Diagnostic Kit) 0 mg IM STAT PRN; Protocol PRN Reason: Hypoglycemia Protocol Guaifenesin (Robitussin) 200 mg PO Q4H PRN PRN Reason: Cough and congestion Last Admin: 06/23/18 12:28 Dose: 200 mg Azithromycin 500 mg/ Sodium (Chloride) 250 mls @ 250 mls/hr IVPB Q24H [facility]; Prot ocol Last Admin: 06/23/18 08:50 Dose: 250 mls/hr Dextrose (Dextrose 5% In Water 1000 Ml) 1,000 mls @ 0 mls/hr IV .Q0M PRN; Protocol PRN Reason: Hypoglycemia Protocol Cefepime HCl 1 gm/ Sodium (Chloride) 100 mls @ 100 mls/hr IVPB Q12H [facility]; Protocol Last Admin: 06/23/18 13:35 Dose: 100 mls/hr Insulin Human Regular (Novolin R) 0 unit SC ACHS [facility]; Protocol Last Admin: 06/23/18 21:57 Dose: Not Given Lisinopril (Zestril) 5 mg PO DAILY [facility] Methylprednisolone (Solu-Medrol) 40 mg IVP Q8H [facility] Last Admin: 06/23/18 17:34 Dose: 40 mg Pantoprazole Sodium (Protonix Inj) 40 mg IVP DAILY [facility] Last Admin: 06/23/18 09:01 Dose: 40 mg Sodium Bicarbonate (Sodium Bicarbonate Tab) 650 mg PO DAILY [facility] Last Admin: 06/23/18 10:32 Dose: 650 mg - Labs Labs: 06/23/18 06:58 06/23/18 06:58 - Constitutional Appears: Well, Non-toxic - Head Exam Head Exam: ATRAUMATIC, NORMAL INSPECTION - Eye Exam Eye Exam: EOMI, Normal appearance. absent: Conjunctival injection Pupil Exam: absent: Fixed, Miosis - ENT Exam ENT Exam: Mucous Membranes Moist - Neck Exam Neck Exam: Full ROM. absent: Lymphadenopathy - Respiratory Exam Respiratory Exam: Decreased Breath Sounds, Rhonchi. absent: Accessory Muscle Use, Chest Wall Tenderness, Rales, Wheezes - Cardiovascular Exam Cardiovascular Exam: REGULAR RHYTHM, +S1, +S2. absent: Murmur - GI/Abdominal Exam GI & Abdominal Exam: Soft, Normal Bowel Sounds. absent: Tenderness Assessment and Plan (1) ILD (interstitial lung disease) Status: Acute (2) Bronchiectasis Status: Acute (3) COPD exacerbation Status: Acute
[2018-06-24] MEDS: MethylPREDNISolone 40 mg Vial IVP SCH ×3 (00:08→18:00)
--- NOTE | 2018-06-24 00:49 | CP.PCM.PN ---
Subjective - Date & Time of Evaluation Date of Evaluation: 06/23/18 Time of Evaluation: 18:00 - Subjective Subjective: Has some shortness of breath. Objective - Vital Signs/Intake and Output Vital Signs (last 24 hours): Temp Pulse Resp BP Pulse Ox 97.9 F 82 20 148/64 97 06/23/18 23:58 06/23/18 23:58 06/23/18 23:58 06/23/18 23:58 06/23/18 23:58 Intake and Output: 06/23/18 06/24/18 18:59 06:59 Intake Total 1430 450 Output Total 950 250 Balance 480 200 - Medications Medications: Current Medications Albuterol/Ipratropium (Duoneb 3 Mg/0.5 Mg (3 Ml) Ud) 3 ml INH RQ4 [facility] Last Admin: 06/23/18 20:03 Dose: 3 ml Dextrose (Dextrose 50% Inj) 0 ml IV STAT PRN; Protocol PRN Reason: Hypoglycemia Protocol Dextrose (Glutose 15) 0 gm PO ONCE PRN; Protocol PRN Reason: Hypoglycemia Protocol Enoxaparin Sodium (Lovenox) 40 mg SC DAILY [facility] Last Admin: 06/23/18 09:01 Dose: 40 mg Epoetin Justino (Procrit) 10,000 unit SC MWF [facility] Glucagon (Glucagen Diagnostic Kit) 0 mg IM STAT PRN; Protocol PRN Reason: Hypoglycemia Protocol Guaifenesin (Robitussin) 200 mg PO Q4H PRN PRN Reason: Cough and congestion Last Admin: 06/23/18 12:28 Dose: 200 mg Azithromycin 500 mg/ Sodium (Chloride) 250 mls @ 250 mls/hr IVPB Q24H [facility]; Protocol Last Admin: 06/23/18 08:50 Dose: 250 mls/hr Dextrose (Dextrose 5% In Water 1000 Ml) 1,000 mls @ 0 mls/hr IV .Q0M PRN; Protocol PRN Reason: Hypoglycemia Protocol Cefepime HCl 1 gm/ Sodium (Chloride) 100 mls @ 100 mls/hr IVPB Q12H [facility]; Protocol Last Admin: 06/23/18 13:35 Dose: 100 mls/hr Insulin Human Regular (Novolin R) 0 unit SC ACHS [facility]; Protocol Last Admin: 06/23/18 21:57 Dose: Not Given Lisinopril (Zestril) 5 mg PO DAILY [facility] Methylprednisolone (Solu-Medrol) 40 mg IVP Q8H [facility] Last Admin: 06/24/18 00:08 Dose: 40 mg Pantoprazole Sodium (Protonix Inj) 40 mg IVP DAILY [facility] Last Admin: 06/23/18 09:01 Dose: 40 mg Sodium Bicarbonate (Sodium Bicarbonate Tab) 650 mg PO DAILY [facility] Last Admin: 06/23/18 10:32 Dose: 650 mg - Labs Labs: 06/23/18 06:58 06/23/18 06:58 - Head Exam Head Exam: ATRAUMATIC - Eye Exam Eye Exam: Normal appearance - ENT Exam ENT Exam: Mucous Membranes Dry - Respiratory Exam Respiratory Exam: NORMAL BREATHING PATTERN - Cardiovascular Exam Cardiovascular Exam: +S1, +S2 - GI/Abdominal Exam GI & Abdominal Exam: Normal Bowel Sounds Assessment and Plan (1) Anemia Assessment & Plan: anemia of CKD, on Procrit will consider PRBC transfusion if H/H remains below 8 Status: Acute (2) Monoclonal gammopathy Assessment & Plan: f/u repeat w/u Status: Acute
[2018-06-24] MEDS: Albuterol-Ipratrop 3 mg / 0.5 (3 ml) UD INH SCH ×6 (00:51→19:32)
[2018-06-24 07:21] LABS: BASO % 0.1 % (0.0-2.0); HEMOGLOBIN 7.4 g/dL (12.0-18.0); LYMPH # 0.2 K/uL (1.0-4.3); LYMPH % 2.4 % (20.0-40.0); MEAN CELL VOLUME 101.8 fL (80.0-94.0); MEAN CORPUSCULAR HGB CONC 34.3 g/dL (33.0-37.0); MEAN PLATELET VOLUME 7.9 fL (7.2-11.7); MONO # 0.1 K/uL (0.0-0.8); NEUT % 95.5 % (50.0-75.0); NRBC % 0.1 % (0.0-2.0); PLATELET COUNT 187 K/uL (130-400); RBC 2.13 Mil/uL (4.40-5.90); RED CELL DISTRIBUTION WIDTH 13.3 % (11.5-14.5); WHITE BLOOD COUNT 7.3 K/uL (4.8-10.8)
[2018-06-24 07:41] LABS: ALB/GLOB RATIO 1.1 (1.0-2.1); ALBUMIN 3.2 g/dL (3.5-5.0); CALCIUM 8.3 mg/dl (8.6-10.4)
[2018-06-24] MEDS: (Novolin R) Insulin Human Regular 100 units/ml vial SC SCH ×5 (08:23→21:40)
--- NOTE | 2018-06-24 08:58 | CP.PCM.PN ---
Subjective - Date & Time of Evaluation Date of Evaluation: 06/24/18 Time of Evaluation: 08:57 - Subjective Subjective: PGY-1 Medicine Progress Note for Dr. Bosch Patient seen and examined at bedside this AM. Objective - Vital Signs/Intake and Output Vital Signs (last 24 hours): Temp Pulse Resp BP Pulse Ox 98 F 77 20 155/75 H 98 06/24/18 07:00 06/24/18 07:00 06/24/18 07:00 06/24/18 07:00 06/24/18 07:00 Intake and Output: 06/24/18 06/24/18 06:59 18:59 Intake Total 560 Output Total 650 Balance -90 - Medications Medications: Current Medications Albuterol/Ipratropium (Duoneb 3 Mg/0.5 Mg (3 Ml) Ud) 3 ml INH RQ4 [facility] Last Admin: 06/24/18 04:36 Dose: Not Given Dextrose (Dextrose 50% Inj) 0 ml IV STAT PRN; Protocol PRN Reason: Hypoglycemia Protocol Dextrose (Glutose 15) 0 gm PO ONCE PRN; Protocol PRN Reason: Hypoglycemia Protocol Enoxaparin Sodium (Lovenox) 40 mg SC DAILY [facility] Last Admin: 06/23/18 09:01 Dose: 40 mg Epoetin Justino (Procrit) 10,000 unit SC MWF [facility] Glucagon (Glucagen Diagnostic Kit) 0 mg IM STAT PRN; Protocol PRN Reason: Hypoglycemia Protocol Guaifenesin (Robitussin) 200 mg PO Q4H PRN PRN Reason: Cough and congestion Last Admin: 06/23/18 12:28 Dose: 200 mg Dextrose (Dextrose 5% In Water 1000 Ml) 1,000 mls @ 0 mls/hr IV .Q0M PRN; Protocol PRN Reason: Hypoglycemia Protocol Cefepime HCl 1 gm/ Sodium (Chloride) 100 mls @ 100 mls/hr IVPB Q12H [facility]; Protocol Last Admin: 06/24/18 01:05 Dose: 100 mls/hr Insulin Human Regular (Novolin R) 0 unit SC ACHS [facility]; Protocol Last Admin: 06/24/18 08:23 Dose: 4 u Lisinopril (Zestril) 5 mg PO DAILY [facility] Methylprednisolone (Solu-Medrol) 40 mg IVP Q8H [facility] Last Admin: 12/28/18 00:08 Dose: 40 mg Pantoprazole Sodium (Protonix Inj) 40 mg IVP DAILY [facility] Last Admin: 06/23/18 09:01 Dose: 40 mg Sodium Bicarbonate (Sodium Bicarbonate Tab) 650 mg PO DAILY [facility] Last Admin: 06/23/18 10:32 Dose: 650 mg - Labs Labs: 06/24/18 07:10 06/24/18 07:10
[2018-06-24] MEDS ORDERED: Epoetin Alfa 10,000 unit/ml Dialysis SC SCH (09:00)
[2018-06-24 09:03] LABS: BANDS 2 % (0-2); LYMPHOCYTE 4 % (20-40); MONOCYTE 2 % (0-10); MYELOCYTE 2 % (0-0); NEUTROPHIL 90 % (50-75); PLATELET ESTIMATE NORMAL (NORMAL); TOTAL CELLS COUNTED 100
[2018-06-24 09:05] LABS: FOLATE 19.3 ng/mL
[2018-06-24] MEDS: Enoxaparin 40 mg Syringe SC SCH (09:23)
--- NOTE | 2018-06-24 12:12 | CP.PCM.PN ---
Subjective - Date & Time of Evaluation Date of Evaluation: 06/24/18 Time of Evaluation: 08:00 - Subjective Subjective: 82 year old male pmh COPD, pulm fibrosis, bronchiectasis, former smoker consulted for shortness of breath. Today patient reports continued SOB and states that his cough is worsening. Denied fever, chills, chest pain, hemoptysis Patient evaluated at bedside. No acute distress Afebrile. SpO2 98% on 2LPM NC Coarse crackles. 06/24- WBC 7.3, Cl 110, CO2 18 influenza negative, legionella negative sputum culture gram negative rods Follow sputum culture sensitivities Follow results of Strep pneumonia antigen, mycobacterium sputum culture Albuterol q4h Continue Solumedrol at current dose Continue Nebulizer treatments Continue cefepime Patient would benefit from respiratory vest therapy Objective - Vital Signs/Intake and Output Vital Signs (last 24 hours): Temp Pulse Resp BP Pulse Ox 98 F 77 20 155/75 H 98 06/24/18 07:00 06/24/18 07:00 06/24/18 07:00 06/24/18 07:00 06/24/18 07:00 Intake and Output: 06/24/18 06/24/18 06:59 18:59 Intake Total 560 Output Total 650 Balance -90 - Medications Medications: Current Medications Albuterol/Ipratropium (Duoneb 3 Mg/0.5 Mg (3 Ml) Ud) 3 ml INH RQ4 [facility] Last Admin: 06/24/18 11:20 Dose: 3 ml Dextrose (Dextrose 50% Inj) 0 ml IV STAT PRN; Protocol PRN Reason: Hypoglycemia Protocol Dextrose (Glutose 15) 0 gm PO ONCE PRN; Protocol PRN Reason: Hypoglycemia Protocol Enoxaparin Sodium (Lovenox) 40 mg SC DAILY [facility] Last Admin: 06/24/18 09:23 Dose: 40 mg Epoetin Justino (Procrit) 10,000 unit SC [facility] Glucagon (Glucagen Diagnostic Kit) 0 mg IM STAT PRN; Protocol PRN Reason: Hypoglycemia Protocol Guaifenesin (Robitussin) 200 mg PO Q4H PRN PRN Reason: Cough and congestion Last Admin: 06/23/18 12:28 Dose: 200 mg Dextrose (Dextrose 5% In Water 1000 Ml) 1,000 mls @ 0 mls/hr IV .Q0M PRN; Protocol PRN Reason: Hypoglycemia Protocol Cefepime HCl 1 gm/ Sodium (Chloride) 100 mls @ 100 mls/hr IVPB Q12H [facility]; Protocol Last Admin: 06/24/18 01:05 Dose: 100 mls/hr Insulin Human Regular (Novolin R) 0 unit SC ACHS [facility]; Protocol Last Admin: 06/24/18 12:04 Dose: Not Given Lisinopril (Zestril) 5 mg PO DAILY [facility] Last Admin: 06/24/18 09:24 Dose: 5 mg Methylprednisolone (Solu-Medrol) 40 mg IVP Q8H [facility] Last Admin: 06/24/18 09:24 Dose: 40 mg Pantoprazole Sodium (Protonix Inj) 40 mg IVP DAILY [facility] Last Admin: 06/24/18 09:23 Dose: 40 mg Sodium Bicarbonate (Sodium Bicarbonate Tab) 650 mg PO DAILY [facility] Last Admin: 06/24/18 09:23 Dose: 650 mg - Labs Labs: 06/24/18 07:10 06/24/18 07:10 Assessment and Plan (1) Bronchiectasis Status: Acute (2) ILD (interstitial lung disease) Status: Acute (3) COPD (chronic obstructive pulmonary disease) Status: Acute
[2018-06-24] MEDS: EPOETIN ALFA 10,000 UNIT/ML ML SC SCH (12:54)
--- NOTE | 2018-06-24 14:26 | CP.PCM.PN ---
Subjective - Date & Time of Evaluation Date of Evaluation: 06/24/18 Time of Evaluation: 14:24 - Subjective Subjective: Feels same c/o chronic cough Hg still low despite EPO For blood transfusions with IV lasix Renal function close to baseline Objective - Vital Signs/Intake and Output Vital Signs (last 24 hours): Temp Pulse Resp BP Pulse Ox 98 F 77 20 155/75 H 98 06/24/18 14:16 06/24/18 14:16 06/24/18 14:16 06/24/18 14:23 06/24/18 07:00 Intake and Output: 06/24/18 06/24/18 06:59 18:59 Intake Total 560 0 Output Total 650 Balance -90 0 - Medications Medications: Current Medications Albuterol/Ipratropium (Duoneb 3 Mg/0.5 Mg (3 Ml) Ud) 3 ml INH RQ4 [facility] Last Admin: 06/24/18 11:20 Dose: 3 ml Dextrose (Dextrose 50% Inj) 0 ml IV STAT PRN; Protocol PRN Reason: Hypoglycemia Protocol Dextrose (Glutose 15) 0 gm PO ONCE PRN; Protocol PRN Reason: Hypoglycemia Protocol Enoxaparin Sodium (Lovenox) 40 mg SC DAILY [facility] Last Admin: 06/24/18 09:23 Dose: 40 mg Epoetin Justino (Procrit) 10,000 unit SC MWF [facility] Last Admin: 06/24/18 12:54 Dose: 10,000 unit Glucagon (Glucagen Diagnostic Kit) 0 mg IM STAT PRN; Protocol PRN Reason: Hypoglycemia Protocol Guaifenesin (Robitussin) 200 mg PO Q4H PRN PRN Reason: Cough and congestion Last Admin: 06/23/18 12:28 Dose: 200 mg Dextrose (Dextrose 5% In Water 1000 Ml) 1,000 mls @ 0 mls/hr IV .Q0M PRN; Protocol PRN Reason: Hypoglycemia Protocol Cefepime HCl 1 gm/ Sodium (Chloride) 100 mls @ 100 mls/hr IVPB Q12H [facility]; Protocol Last Admin: 06/24/18 14:21 Dose: Not Given Insulin Human Regular (Novolin R) 0 unit SC ACHS [facility]; Protocol Last Admin: 06/24/18 12:04 Dose: Not Given Lisinopril (Zestril) 5 mg PO DAILY [facility] Last Admin: 06/24/18 09:24 Dose: 5 mg Methylprednisolone (Solu-Medrol) 40 mg IVP Q8H [facility] Last Admin: 06/24/18 09:24 Dose: 40 mg Pantoprazole Sodium (Protonix Inj) 40 mg IVP DAILY [facility] Last Admin: 06/24/18 09:23 Dose: 40 mg Sodium Bicarbonate (Sodium Bicarbonate Tab) 650 mg PO DAILY [facility] Last Admin: 06/24/18 09:23 Dose: 650 mg - Labs Labs: 06/24/18 07:10 06/24/18 07:10 - Constitutional Appears: No Acute Distress, Chronically Ill - Head Exam Head Exam: ATRAUMATIC, NORMAL INSPECTION - Eye Exam Eye Exam: EOMI, Normal appearance - Neck Exam Neck Exam: Normal Inspection. absent: Tenderness - Respiratory Exam Respiratory Exam: Clear to Ausculation Bilateral, NORMAL BREATHING PATTERN - Cardiovascular Exam Cardiovascular Exam: REGULAR RHYTHM, +S1 - GI/Abdominal Exam GI & Abdominal Exam: Soft. absent: Tenderness - Extremities Exam Extremities Exam: Normal Inspection. 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
--- NOTE | 2018-06-24 16:26 | CP.PCM.DIS ---
Provider - Provider Date of Admission: 06/20/18 16:16 Attending physician: Anderson Bosch DO Consults: 06/20/18 16:42 Physician Consult Stat Comment: Consulting Provider: Greg Dutton Consulting Physician: Greg Dutton Reason for Consult: ckd stage III, uptrending Cr 06/20/18 16:44 Physician Consult Stat Comment: Consulting Provider: Geovani Post Consulting Physician: Geovani Post Reason for Consult: copd exacerbation, possible pna/hx intersitital lung dz Additional Comments: seen by you in past 06/20/18 17:18 Hematology Oncology Consult Routine Comment: Consulting Provider: Ki Lobato Consulting Physician: Ki Lobato Reason for Consult: chronic anemia, renal failure 06/20/18 18:47 Inpatient BUSINESS DEVELOPMENT CONSULTANT Core Measures Referral Routine Comment: Physician Instructions: Reason For Exam: new admission. Pneumonia, SOB 06/22/18 15:35 Wound Care [Nursing Referral for Wound Care] Routine Comment: Physician Instructions: wound care Reason For Exam: peg site infection Time Spent in preparation of Discharge (in minutes): 40 Hospital Course - Lab Results Lab Results: Micro Results 06/20/18 15:15 Blood Blood Culture - Preliminary NO GROWTH AFTER 4 DAYS 06/21/18 17:04 Sputum Gram Stain - Final 06/21/18 17:04 Sputum Sputum Culture - Final Pseudomonas Aeruginosa 06/23/18 20:19 Sputum Gram Stain - Final 06/20/18 16:54 Blood Blood Culture - Preliminary NO GROWTH AFTER 3 DAYS 06/20/18 16:54 Urine,Nunez Urine Culture - Final No Growth (<1,000 CFU/ML) Most Recent Lab Values WBC 7.3 K/uL (4.8-10.8) 06/24/18 07:10 RBC 2.13 Mil/uL (4.40-5.90) L 06/24/18 07:10 Hgb 7.4 g/dL (12.0-18.0) L 06/24/18 07:10 Hct 21.7 % (35.0-51.0) L 06/24/18 07:10 MCV 101.8 fL (80.0-94.0) H 06/24/18 07:10 MCH 35.0 pg (27.0-31.0) H 06/24/18 07:10 MCHC 34.3 g/dL (33.0-37.0) 06/24/18 07:10 RDW 13.3 % (11.5-14.5) 06/24/18 07:10 Plt Count 187 K/uL (130-400) 06/24/18 07:10 MPV 7.9 fL (7.2-11.7) 06/24/18 07:10 Neut % (Auto) 95.5 % (50.0-75.0) H 06/24/18 07:10 Lymph % (Auto) 2.4 % (20.0-40.0) L 06/24/18 07:10 Hubbard % (Auto) 2.0 % (0.0-10.0) 06/24/18 07:10 Eos % (Auto) 0.0 % (0.0-4.0) 06/24/18 07:10 Baso % (Auto) 0.1 % (0.0-2.0) 06/24/18 07:10 Neut # (Auto) 7.0 K/uL (1.8-7.0) 06/24/18 07:10 Lymph # (Auto) 0.2 K/uL (1.0-4.3) L 06/24/18 07:10 Hubbard # (Auto) 0.1 K/uL (0.0-0.8) 06/24/18 07:10 Eos # (Auto) 0.0 K/uL (0.0-0.7) 06/24/18 07:10 Baso # (Auto) 0.0 K/uL (0.0-0.2) 06/24/18 07:10 Neutrophils % (Manual) 90 % (50-75) H 06/24/18 07:10 Band Neutrophils % 2 % (0-2) 06/24/18 07:10 Lymphocytes % (Manual) 4 % (20-40) L 06/24/18 07:10 Monocytes % (Manual) 2 % (0-10) 06/24/18 07:10 Eosinophils % (Manual) 1 % (0-4) 06/20/18 15:22 Myelocytes % 2 % (0-0) H 06/24/18 07:10 Platelet Estimate Normal (NORMAL) 06/24/18 07:10 Hypochromasia (manual) Slight 06/23/18 06:58 Poikilocytosis (manual Slight 06/23/18 06:58 Anisocytosis (manual) Slight 06/23/18 06:58 Macrocytosis (manual) Slight 06/24/18 07:10 Target Cells Slight 06/20/18 15:22 Ovalocytes Slight 06/23/18 06:58 Retic Count 0.6 % (0.5-1.5) 06/24/18 07:10 Sodium 139 mmol/L (132-148) 06/24/18 07:10 Potassium 4.4 mmol/L (3.6-5.2) 06/24/18 07:10 Chloride 110 mmol/L (98-107) H 06/24/18 07:10 Carbon Dioxide 18 mmol/L (22-30) L 06/24/18 07:10 Anion Gap 16 (10-20) 06/24/18 07:10 BUN 72 mg/dL (9-20) H 06/24/18 07:10 Creatinine 2.4 mg/dL (0.8-1.5) H 06/24/18 07:10 Est GFR ( Amer) 32 06/24/18 07:10 Est GFR (Non-Af Amer) 26 06/24/18 07:10 POC Glucose (mg/dL) 203 mg/dL (65-110) H 06/24/18 11:11 Random Glucose 200 mg/dL (75-110) H 06/24/18 07:10 Hemoglobin A1c 5.6 % (4.2-6.5) 06/20/18 18:46 Calcium 8.3 mg/dl (8.6-10.4) L 06/24/18 07:10 Phosphorus 4.6 mg/dL (2.5-4.5) H 06/22/18 06:41 Magnesium 1.5 mg/dL (1.6-2.3) L 06/22/18 06:41 % Saturation 44 (20-55) 06/22/18 06:41 Ferritin 323.0 ng/mL 06/22/18 06:41 Total Bilirubin 0.2 mg/dL (0.2-1.3) 06/24/18 07:10 AST 21 U/L (17-59) 06/24/18 07:10 ALT 16 U/L (21-72) L 06/24/18 07:10 Alkaline Phosphatase 54 U/L (38-126) 06/24/18 07:10 Total Protein 6.0 g/dL (6.3-8.3) L 06/24/18 07:10 Albumin 3.2 g/dL (3.5-5.0) L 06/24/18 07:10 Globulin 2.8 gm/dL (2.2-3.9) 06/24/18 07:10 Albumin/Globulin Ratio 1.1 (1.0-2.1) 06/24/18 07:10 Vitamin B12 601 pg/mL (239-931) 06/24/18 07:10 Folate 19.3 ng/mL 06/24/18 07:10 PTH Intact Whole Molec 145 pg/mL (14-64) H 06/22/18 06:41 Urine Color Yellow (YELLOW) 06/21/18 17:04 Urine Clarity Clear (Clear) 06/21/18 17:04 Urine pH 5.0 (5.0-8.0) 06/21/18 17:04 Ur Specific [place] 1.013 (1.003-1.030) 06/21/18 17:04 Urine Protein 2+ mg/dL (NEGATIVE) H 06/21/18 17:04 Urine Glucose (UA) 2+ mg/dL (Normal) H 06/21/18 17:04 Urine Ketones Negative mg/dL (NEGATIVE) 06/21/18 17:04 Urine Blood 1+ (NEGATIVE) H 06/21/18 17:04 Urine Nitrate Negative (NEGATIVE) 06/21/18 17:04 Urine Bilirubin Negative (NEGATIVE) 06/21/18 17:04 Urine Urobilinogen Normal mg/dL (0.2-1.0) 06/21/18 17:04 Ur Leukocyte Esterase Neg Charmaine/uL (Negative) 06/21/18 17:04 Urine WBC (Auto) 1 /hpf (0-5) 06/21/18 17:04 Urine RBC (Auto) 1 /hpf (0-3) 06/21/18 17:04 Ur Squamous Epith Cells 1 /hpf (0-5) 06/21/18 17:04 Urine Bacteria Rare (<OCC) 06/21/18 17:04 Ur Random Sodium 36 mmol/L 06/21/18 17:04 Urine Collection Time 24 HRS 06/23/18 07:07 Urine Total Volume 1575 mL 06/23/18 07:07 Urine Chloride 43 mmol/L (32-290) 06/21/18 17:04 Ur Protein 24 Hr Calc 4173.8 mg/24hr (42-225) H 06/23/18 07:07 Influenza Typ A,B (EIA) Negative for flu a/b (NEGATIVE) 06/20/18 15:22 Ur L.pneumophila Ag Negative (NEGATIVE) 06/23/18 20:19 Blood Type O POSITIVE 06/24/18 11:32 Antibody Screen Negative 06/24/18 11:32 Discharge Exam - Head Exam Head Exam: ATRAUMATIC, NORMAL INSPECTION, NORMOCEPHALIC - Eye Exam Eye Exam: EOMI, Normal appearance Pupil Exam: NORMAL ACCOMODATION - ENT Exam ENT Exam: Mucous Membranes Moist, Normal Exam - Neck Exam Neck exam: Full Rom, Normal Inspection - Respiratory Exam Respiratory Exam: UNREMARKABLE Discharge Plan - Discharge Medications Prescriptions: Amoxicillin/Clavulanate [Augmentin 875 MG-125 MG] 1 tab PO BID #14 tab - Follow Up Plan Condition: STABLE Disposition: HOME/ ROUTINE Additional Instructions: Patient is medically stable for discharge to home, as per Dr. Bosch. Patient is instructed to resume all home medications as prescribed. Patient states he has all medications at home and does not need refills. Script has been provided for Augmentin, to be taken as prescribed twice daily due to pneumonia with pseudomonal growth in sputum. Patient is instructed to follow up with his primary care provider (Dr. Miranda) within 1 week of discharge for continued care and monitoring. Please also follow up with your horse trainer (Dr. Cruz) as well as Nephrology (Dr. Dutton) and Hematology (Dr. Lobato) within 1-2 weeks of discharge for continued care. If symptoms worsen, please return to ED immediately. Referrals: Ki Lobato MD [Staff Provider] - Chevy Cruz MD [Medical Doctor] - Greg Dutton MD [Staff Provider] - PCP,NO [Non-Staff] -
--- NOTE | 2018-06-24 17:24 | CP.PCM.PN ---
<Leroy Reed - Last Filed: 06/24/18 17:18> Subjective - Date & Time of Evaluation Date of Evaluation: 06/24/18 Time of Evaluation: 17:18 - Subjective Subjective: PGY-1 Medicine Progress Note for Dr. Bosch Patient seen and evaluated at bedside this AM, in no acute distress. Continues to endorse chronic dry cough. Denies any fevers/chills, hemoptysis, chest pain, palpitations, sob. No other acute somatic complaints at this time. Objective - Vital Signs/Intake and Output Vital Signs (last 24 hours): Temp Pulse Resp BP Pulse Ox 97.6 F 81 20 168/75 H 98 06/24/18 15:30 06/24/18 15:30 06/24/18 15:30 06/24/18 15:30 06/24/18 15:30 Intake and Output: 06/24/18 06/24/18 06:59 18:59 Intake Total 560 400 Output Total 650 Balance -90 400 - Medications Medications: Current Medications Albuterol/Ipratropium (Duoneb 3 Mg/0.5 Mg (3 Ml) Ud) 3 ml INH RQ4 [facility] Last Admin: 06/24/18 11:20 Dose: 3 ml Dextrose (Dextrose 50% Inj) 0 ml IV STAT PRN; Protocol PRN Reason: Hypoglycemia Protocol Dextrose (Glutose 15) 0 gm PO ONCE PRN; Protocol PRN Reason: Hypoglycemia Protocol Enoxaparin Sodium (Lovenox) 40 mg SC DAILY [facility] Last Admin: 06/24/18 09:23 Dose: 40 mg Epoetin Justino (Procrit) 10,000 unit SC MWF [facility] Last Admin: 06/24/18 12:54 Dose: 10,000 unit Glucagon (Glucagen Diagnostic Kit) 0 mg IM STAT PRN; Protocol PRN Reason: Hypoglycemia Protocol Guaifenesin (Robitussin) 200 mg PO Q4H PRN PRN Reason: Cough and congestion Last Admin: 06/23/18 12:28 Dose: 200 mg Dextrose (Dextrose 5% In Water 1000 Ml) 1,000 mls @ 0 mls/hr IV .Q0M PRN; P rotocol PRN Reason: Hypoglycemia Protocol Imipenem/Cilastatin Sodium 500 (mg/ Sodium Chloride) 100 mls @ 100 mls/hr IVPB Q12H [facility]; Protocol Insulin Human Regular (Novolin R) 0 unit SC ACHS [facility]; Protocol Last Admin: 06/24/18 15:39 Dose: Not Given Lisinopril (Zestril) 5 mg PO DAILY [facility] Last Admin: 06/24/18 09:24 Dose: 5 mg Methylprednisolone (Solu-Medrol) 40 mg IVP Q8H [facility] Last Admin: 06/24/18 09:24 Dose: 40 mg Pantoprazole Sodium (Protonix Inj) 40 mg IVP DAILY [facility] Last Admin: 06/24/18 09:23 Dose: 40 mg Sodium Bicarbonate (Sodium Bicarbonate Tab) 650 mg PO DAILY [facility] Last Admin: 06/24/18 09:23 Dose: 650 mg - Labs Labs: 06/24/18 07:10 06/24/18 07:10 - Constitutional Appears: No Acute Distress, Chronically Ill - Head Exam Head Exam: ATRAUMATIC, NORMAL INSPECTION, NORMOCEPHALIC - Eye Exam Eye Exam: EOMI, Normal appearance Pupil Exam: NORMAL ACCOMODATION - ENT Exam ENT Exam: Mucous Membranes Moist, Normal Exam - Respiratory Exam Respiratory Exam: Rales (coarse), NORMAL BREATHING PATTERN. absent: Accessory Muscle Use, Rhonchi, Wheezes, Respiratory Distress, Stridor - Cardiovascular Exam Cardiovascular Exam: REGULAR RHYTHM, +S1, +S2 - GI/Abdominal Exam GI & Abdominal Exam: Soft, Normal Bowel Sounds. absent: Distended, Firm, Guarding, Rigid, Tenderness, Rebound - Extremities Exam Extremities Exam: Normal Capillary Refill, Normal Inspection. absent: Calf Tenderness, Pedal Edema - Back Exam Back Exam: NORMAL INSPECTION - Neurological Exam Neurological Exam: Alert, Awake, Oriented x3 - Psychiatric Exam Psychiatric exam: Normal Affect, Normal Mood - Skin Skin Exam: Dry, Intact, Normal Color, Warm Assessment and Plan - Assessment and Plan (Free Text) Assessment: 82 year old M with PMHx of HTN, HLD, DM, COPD, CKD, anemia presenting to ED worsening sob, productive cough, subjective fevers in setting of COPD exacerbation. Plan: COPD exacerbation Pulmonary fibrosis, Bronchiectasis -afebrile, no leukocytosis -CXR (06/20): R basilar infiltrate, possible PNA -CT chest (06/20): Underlying interstitial lung disease. Honeycombing noted, p rimarily lower lobe and lingular/R middle lobe process. Underlying findings suggestive of primary cystic and to lesser extent traction bronchiectasis. No new/superimposed infiltrates. No suspicious pulmona -blood culture, urine culture (06/20): no growth -sputum cx: pseudomonas moderate growth, resistant to cipro, cefepime, aztreonam -spoke to Dr. Post: october d/c cefepime, start primaxin IV -Pulm recs (Dr. Post) appreciated -Albuterol q4h -Continue Solumedrol at current dose -Continue Nebulizer treatments -Patient would benefit from respiratory vest therapy -[facility] -solumedrol 80 mg IV -primaxin IV CKD Stage IV -Cr 2.4 (06/24), close to baseline 2.2 (08/2017) -Nephrology (Dr. Dutton) recs appreciated -renal function close to baseline -continue current rx -continue EPO -Renal u/s (06/22): echogenic renal parenchyma. Nonobstructing 4 mm R lower pole calculus, no hydronephrosis or obstructing stone b/l Chronic Anemia, likely 2/2 underlying CKD -Nephrology recs (Dr. Dutton) appreciated -begin Procrit 10,000 units SC MWF -Hb 7.4 today despite procrit -Heme/Onc recs (Dr. Lobato) appreciated -may transfuse 1 unit pRBC w/ IV lasix x1 given HTN -normotensive, continue to monitor -home med held DM -home sulfonyurea on hold due to renal function -ISS -accuchecks ACHS -hypoglycemic protocol PPx, Diet, Disposition -DVT ppx: scds, lovenox -GI: protonix -Diet: renal -PT/OT on board Case discussed with Dr. Danitza Reed DO, PGY-1 <Anderson Bosch H - Last Filed: 06/25/18 07:02> Objective - Vital Signs/Intake and Output Vital Signs (last 24 hours): Temp Pulse Resp BP Pulse Ox 98.1 F 80 20 163/78 H 97 06/24/18 23:56 06/24/18 23:56 06/24/18 23:56 06/24/18 23:56 06/24/18 23:56 Intake and Output: 06/25/18 06/25/18 06:59 18:59 Intake Total 1220 Output Total 700 Balance 520 - Medications Medications: Current Medications Albuterol/Ipratropium (Duoneb 3 Mg/0.5 Mg (3 Ml) Ud) 3 ml INH RQ4 [facility] Last Admin: 06/25/18 04:30 Dose: Not Given Dextrose (Dextrose 50% Inj) 0 ml IV STAT PRN; Protocol PRN Reason: Hypoglycemia Protocol Dextrose (Glutose 15) 0 gm PO ONCE PRN; Protocol PRN Reason: Hypoglycemia Protocol Enoxaparin Sodium (Lovenox) 40 mg SC DAILY [facility] Last Admin: 06/24/18 09:23 Dose: 40 mg Epoetin Justino (Procrit) 10,000 unit SC MWF [facility] Last Admin: 06/24/18 12:54 Dose: 10,000 unit Glucagon (Glucagen Diagnostic Kit) 0 mg IM STAT PRN; Protocol PRN Reason: Hypoglycemia Protocol Guaifenesin (Robitussin) 200 mg PO Q4H PRN PRN Reason: Cough and congestion Last Admin: 06/23/18 12:28 Dose: 200 mg Dextrose (Dextrose 5% In Water 1000 Ml) 1,000 mls @ 0 mls/hr IV .Q0M PRN; Protocol PRN Reason: Hypoglycemia Protocol Imipenem/Cilastatin Sodium 500 (mg/ Sodium Chloride) 100 mls @ 100 mls/hr IVPB Q12H [facility]; Protocol Last Admin: 06/25/18 05:17 Dose: 100 mls/hr Insulin Human Regular (Novolin R) 0 unit SC ACHS [facility]; Protocol Last Admin: 06/24/18 21:40 Dose: Not Given Lisinopril (Zestril) 5 mg PO DAILY [facility] Last Admin: 06/24/18 09:24 Dose: 5 mg Methylprednisolone (Solu-Medrol) 40 mg IVP Q8H [facility] Last Admin: 06/25/18 01:04 Dose: 40 mg Pantoprazole Sodium (Protonix Inj) 40 mg IVP DAILY [facility] Last Admin: 06/24/18 09:23 Dose: 40 mg Sodium Bicarbonate (Sodium Bicarbonate Tab) 650 mg PO DAILY [facility] Last Admin: 06/24/18 09:23 Dose: 650 mg - Labs Labs: 06/24/18 07:10 06/24/18 07:10 Attending/Attestation - Attestation I have personally seen and examined this patient.: Yes I have fully participated in the care of the patient.: Yes I have reviewed all pertinent clinical information, including history, physical exam and plan: Yes Notes (Text): 06/25/18 07:00 Medical attending: Patient was seen and examined by me. Agree with the above note by the resident The patient was not in any acute distress when I came and saw him. We discussed with hematology oncology, nephrology, and later pulmonology as well. He will have one unit of blood with lasix 20mg x 1 dose afterwards. Also the sputum culture grew out gram negative psuedomonas that was sensitive to Primaxin and not the cefepime. He still has a productive cough While he did want to go today, in light of the sensitivities will change abx to Primaxin IV only BID due to renal function Anderson Bosch
[2018-06-25] MEDS: Albuterol-Ipratrop 3 mg / 0.5 (3 ml) UD INH SCH ×6 (00:30→19:53)
--- NOTE | 2018-06-25 00:35 | CP.PCM.PN ---
<Shwetha Hightower - Last Filed: 06/25/18 00:33> Subjective - Date & Time of Evaluation Date of Evaluation: 06/25/18 Time of Evaluation: 00:33 - Subjective Subjective: Shwetha Hightower PGY1 Progress Note for Dr. Bosch Pt was examined at bedside. He was pleasant, had no complaints. Pt denied fever, chills, cough, shortness of breath, chest pain, abdominal pain, nausea, vomiting, diarrhea, dysuria. Objective - Vital Signs/Intake and Output Vital Signs (last 24 hours): Temp Pulse Resp BP Pulse Ox 98.1 F 80 20 163/78 H 97 06/24/18 23:56 06/24/18 23:56 06/24/18 23:56 06/24/18 23:56 06/24/18 23:56 Intake and Output: 06/24/18 06/25/18 18:59 06:59 Intake Total 750 880 Output Total 300 Balance 750 580 - Medications Medications: Current Medications Albuterol/Ipratropium (Duoneb 3 Mg/0.5 Mg (3 Ml) Ud) 3 ml INH RQ4 [facility] Last Admin: 06/24/18 19:32 Dose: 3 ml Dextrose (Dextrose 50% Inj) 0 ml IV STAT PRN; Protocol PRN Reason: Hypoglycemia Protocol Dextrose (Glutose 15) 0 gm PO ONCE PRN; Protocol PRN Reason: Hypoglycemia Protocol Enoxaparin Sodium (Lovenox) 40 mg SC DAILY [facility] Last Admin: 06/24/18 09:23 Dose: 40 mg Epoetin Justino (Procrit) 10,000 unit SC MWF [facility] Last Admin: 06/24/18 12:54 Dose: 10,000 unit Glucagon (Glucagen Diagnostic Kit) 0 mg IM STAT PRN; Protocol PRN Reason: Hypoglycemia Protocol Guaifenesin (Robitussin) 200 mg PO Q4H PRN PRN Reason: Cough and congestion Last Admin: 06/23/18 12:28 Dose: 200 mg Dextrose (Dextrose 5% In Water 1000 Ml) 1,000 mls @ 0 mls/hr IV .Q0M PRN; Protocol PRN Reason: Hypoglycemia Protocol Imipenem/Cilastatin Sodium 500 (mg/ Sodium Chloride) 100 mls @ 100 mls/hr IVPB Q12H [facility]; Protocol Last Admin: 06/24/18 18:59 Dose: 100 mls/hr Insulin Human Regular (Novolin R) 0 unit SC ACHS [facility]; Protocol Last Admin: 06/24/18 21:40 Dose: Not Given Lisinopril (Zestril) 5 mg PO DAILY [facility] Last Admin: 06/24/18 09:24 Dose: 5 mg Methylprednisolone (Solu-Medrol) 40 mg IVP Q8H [facility] Last Admin: 06/24/18 18:00 Dose: 40 mg Pantoprazole Sodium (Protonix Inj) 40 mg IVP DAILY [facility] Last Admin: 06/24/18 09:23 Dose: 40 mg Sodium Bicarbonate (Sodium Bicarbonate Tab) 650 mg PO DAILY [facility] Last Admin: 06/24/18 09:23 Dose: 650 mg - Labs Labs: 06/24/18 07:10 06/24/18 07:10 - Additional Findings Additional findings: - Constitutional Appears: No Acute Distress, Chronically Ill - Head Exam Head Exam: ATRAUMATIC, NORMAL INSPECTION, NORMOCEPHALIC - Eye Exam Eye Exam: EOMI, Normal appearance Pupil Exam: NORMAL ACCOMODATION - ENT Exam ENT Exam: Mucous Membranes Moist, Normal Exam - Respiratory Exam Respiratory Exam: Rales (coarse), NORMAL BREATHING PATTERN. absent: Accessory Muscle Use, Rhonchi, Wheezes, Respiratory Distress, Stridor - Cardiovascular Exam Cardiovascular Exam: REGULAR RHYTHM, +S1, +S2 - GI/Abdominal Exam GI & Abdominal Exam: Soft, Normal Bowel Sounds. absent: Distended, Firm, Guarding, Rigid, Tenderness, Rebound - Extremities Exam Extremities Exam: Normal Capillary Refill, Normal Inspection. absent: Calf Tenderness, Pedal Edema - Back Exam Back Exam: NORMAL INSPECTION - Neurological Exam Neurological Exam: Alert, Awake, Oriented x3 - Psychiatric Exam Psychiatric exam: Normal Affect, Normal Mood - Skin Skin Exam: Dry, Intact, Normal Color, Warm Assessment and Plan - Assessment and Plan (Free Text) Assessment: 82 year old M with PMHx of HTN, HLD, DM, COPD, CKD, anemia presenting to ED worsening sob, productive cough, subjective fevers in setting of COPD exacerbation. Plan: COPD exacerbation Pulmonary fibrosis, Bronchiectasis -afebrile, no leukocytosis -CXR (06/20): R basilar infiltrate, possible PNA -CT chest (06/20): Underlying interstitial lung disease. Honeycombing noted, primarily lower lobe and lingular/R middle lobe process. Underlying findings suggestive of primary cystic and to lesser extent traction bronchiectasis. No new/superimposed infiltrates. No suspicious pulmona -blood culture, urine culture (06/20): no growth -sputum cx: pseudomonas moderate growth, resistant to cipro, cefepime, aztreonam -spoke to Dr. Post: october d/c cefepime, start primaxin IV -Pulm recs (Dr. Post) appreciated -Albuterol q4h -Continue Solumedrol at current dose -Continue Nebulizer treatments -Patient would benefit from respiratory vest therapy -billie [facility] -solumedrol 80 mg IV -primaxin IV CKD Stage IV -Cr 2.4 (06/24), close to baseline 2.2 (08/2017) -Nephrology (Dr. Dutton) recs appreciated -renal function close to baseline -continue current rx -continue EPO -Renal u/s (06/22): echogenic renal parenchyma. Nonobstructing 4 mm R lower pole calculus, no hydronephrosis or obstructing stone b/l Chronic Anemia, likely 2/2 underlying CKD -Nephrology recs (Dr. Dutton) appreciated -begin Procrit 10,000 units SC MWF -Hb 7.4 today despite procrit -Heme/Onc recs (Dr. Lobato) appreciated -may transfuse 1 unit pRBC w/ IV lasix x1 given HTN -normotensive, continue to monitor -home med held DM -home sulfonyurea on hold due to renal function -ISS -accuchecks ACHS -hypoglycemic protocol PPx, Diet, Disposition -DVT ppx: scds, lovenox -GI: protonix -Diet: renal -PT/OT on board <Anderson Bosch - Last Filed: 06/25/18 17:13> Objective - Vital Signs/Intake and Output Vital Signs (last 24 hours): Temp Pulse Resp BP Pulse Ox 98.2 F 72 20 178/83 H 97 06/25/18 07:00 06/25/18 07:00 06/25/18 07:00 06/25/18 07:00 06/25/18 07:00 Intake and Output: 06/25/18 06/25/18 06:59 18:59 Intake Total 1220 500 Output Total 700 Balance 520 500 - Medications Medications: Current Medications Albuterol/Ipratropium (Duoneb 3 Mg/0.5 Mg (3 Ml) Ud) 3 ml INH RQ4 [facility] Last Admin: 06/25/18 12:41 Dose: 3 ml Dextrose (Dextrose 50% Inj) 0 ml IV STAT PRN; Protocol PRN Reason: Hypoglycemia Protocol Dextrose (Glutose 15) 0 gm PO ONCE PRN; Protocol PRN Reason: Hypoglycemia Protocol Enoxaparin Sodium (Lovenox) 40 mg SC DAILY [facility] Last Admin: 06/25/18 10:55 Dose: 40 mg Epoetin Justino (Procrit) 10,000 unit SC MWF [facility] Last Admin: 06/24/18 12:54 Dose: 10,000 unit Glucagon (Glucagen Diagnostic Kit) 0 mg IM STAT PRN; Protocol PRN Reason: Hypoglycemia Protocol Guaifenesin (Robitussin) 200 mg PO Q4H PRN PRN Reason: Cough and congestion Last Admin: 06/23/18 12:28 Dose: 200 mg Dextrose (Dextrose 5% In Water 1000 Ml) 1,000 mls @ 0 mls/hr IV .Q0M PRN; Protocol PRN Reason: Hypoglycemia Protocol Imipenem/Cilastatin Sodium 500 (mg/ Sodium Chloride) 100 mls @ 100 mls/hr IVPB Q12H [facility]; Protocol Last Admin: 06/25/18 05:17 Dose: 100 mls/hr Insulin Human Regular (Novolin R) 0 unit SC ACHS [facility]; Protocol Last Admin: 06/25/18 11:23 Dose: 6 u Lisinopril (Zestril) 10 mg PO DAILY [facility] Methylprednisolone (Solu-Medrol) 40 mg IVP Q8H [facility] Last Admin: 06/25/18 10:54 Dose: 40 mg Pantoprazole Sodium (Protonix Inj) 40 mg IVP DAILY [facility] Last Admin: 06/25/18 10:54 Dose: 40 mg Sodium Bicarbonate (Sodium Bicarbonate Tab) 650 mg PO DAILY [facility] Last Admin: 06/25/18 10:55 Dose: 650 mg - Labs Labs: 06/25/18 07:50 06/25/18 07:50 Attending/Attestation - Attestation I have personally seen and examined this patient.: Yes I have fully participated in the care of the patient.: Yes I have reviewed all pertinent clinical information, including history, physical exam and plan: Yes Notes (Text): 06/25/18 17:11 Medical attending: Patient was seen and examined by me. Agree with the above note by the resident The patient was not in any acute distress He looks like he has better color now that he had a blood transfusion. He says he noticed a difference. Yesterday the sputom showed + Pseudomonas Auerginosa growth that was resistant to many things - so the abx was changed to Primaxin We will continue to monitor him while here. Anderson Bosch
[2018-06-25] MEDS: MethylPREDNISolone 40 mg Vial IVP SCH ×3 (01:04→17:49)
[2018-06-25 08:00] LABS: EOS % 0.1 % (0.0-4.0); HEMOGLOBIN 9.2 g/dL (12.0-18.0); LYMPH # 0.2 K/uL (1.0-4.3); LYMPH % 3.4 % (20.0-40.0); MEAN CORPUSCULAR HEMOGLOBIN 33.7 pg (27.0-31.0); MEAN CORPUSCULAR HGB CONC 34.2 g/dL (33.0-37.0); MEAN PLATELET VOLUME 8.1 fL (7.2-11.7); MONO # 0.2 K/uL (0.0-0.8); MONO % 2.8 % (0.0-10.0); NEUT # 6.1 K/uL (1.8-7.0); NEUT % 93.7 % (50.0-75.0); NRBC % 0.1 % (0.0-2.0); PLATELET COUNT 188 K/uL (130-400); RBC 2.73 Mil/uL (4.40-5.90); RED CELL DISTRIBUTION WIDTH 15.7 % (11.5-14.5); WHITE BLOOD COUNT 6.5 K/uL (4.8-10.8)
[2018-06-25 08:03] LABS: MEAN CELL VOLUME 98.5 fL (80.0-94.0)
[2018-06-25 08:23] LABS: ALB/GLOB RATIO 1.2 (1.0-2.1); ALBUMIN 3.3 g/dL (3.5-5.0); CALCIUM 8.4 mg/dl (8.6-10.4)
[2018-06-25] MEDS: (Novolin R) Insulin Human Regular 100 units/ml vial SC SCH ×4 (08:25→21:57)
[2018-06-25 10:13] LABS: ANISOCYTOSIS SLIGHT; BANDS 3 % (0-2); HYPOCHROMIC SLIGHT; LYMPHOCYTE 2 % (20-40); MONOCYTE 5 % (0-10); NEUTROPHIL 90 % (50-75); PLATELET ESTIMATE NORMAL (NORMAL); TOTAL CELLS COUNTED 100
[2018-06-25 10:14] LABS: POLYCHROMIC SLIGHT
[2018-06-25 10:18] LABS: LARGE PLATELETS PRESENT
[2018-06-25] MEDS: Enoxaparin 40 mg Syringe SC SCH (10:55)
--- NOTE | 2018-06-25 12:03 | CP.PCM.PN ---
Subjective - Date & Time of Evaluation Date of Evaluation: 06/25/18 Time of Evaluation: 12:01 - Subjective Subjective: started on AB for sputum cx moving bowels no fever no chills no rash chronic sob chronic cough no headache Objective - Vital Signs/Intake and Output Vital Signs (last 24 hours): Temp Pulse Resp BP Pulse Ox 98.2 F 72 20 178/83 H 97 06/25/18 07:00 06/25/18 07:00 06/25/18 07:00 06/25/18 07:00 06/25/18 07:00 Intake and Output: 06/25/18 06/25/18 06:59 18:59 Intake Total 1220 Output Total 700 Balance 520 - Medications Medications: Current Medications Albuterol/Ipratropium (Duoneb 3 Mg/0.5 Mg (3 Ml) Ud) 3 ml INH RQ4 [facility] Last Admin: 06/25/18 08:07 Dose: 3 ml Dextrose (Dextrose 50% Inj) 0 ml IV STAT PRN; Protocol PRN Reason: Hypoglycemia Protocol Dextrose (Glutose 15) 0 gm PO ONCE PRN; Protocol PRN Reason: Hypoglycemia Protocol Enoxaparin Sodium (Lovenox) 40 mg SC DAILY [facility] Last Admin: 06/25/18 10:55 Dose: 40 mg Epoetin Justino (Procrit) 10,000 unit SC MWF [facility] Last Admin: 06/24/18 12:54 Dose: 10,000 unit Glucagon (Glucagen Diagnostic Kit) 0 mg IM STAT PRN; Protocol PRN Reason: Hypoglycemia Protocol Guaifenesin (Robitussin) 200 mg PO Q4H PRN PRN Reason: Cough and congestion Last Admin: 06/23/18 12:28 Dose: 200 mg Dextrose (Dextrose 5% In Water 1000 Ml) 1,000 mls @ 0 mls/hr IV .Q0M PRN; Protocol PRN Reason: Hypoglycemia Protocol Imipenem/Cilastatin Sodium 500 (mg/ Sodium Chloride) 100 mls @ 100 mls/hr IVPB Q12H [facility]; Protocol Last Admin: 06/25/18 05:17 Dose: 100 mls/hr Insulin Human Regular (Novolin R) 0 unit SC ACHS [facility]; Protocol Last Admin: 06/25/18 11:23 Dose: 6 u Lisinopril (Zestril) 10 mg PO DAILY [facility] Methylprednisolone (Solu-Medrol) 40 mg IVP Q8H [facility] Last Admin: 06/25/18 10:54 Dose: 40 mg Pantoprazole Sodium (Protonix Inj) 40 mg IVP DAILY [facility] Last Admin: 06/25/18 10:54 Dose: 40 mg Sodium Bicarbonate (Sodium Bicarbonate Tab) 650 mg PO DAILY [facility] Last Admin: 06/25/18 10:55 Dose: 650 mg - Labs Labs: 06/25/18 07:50 06/25/18 07:50 - Constitutional Appears: No Acute Distress, Chronically Ill - Head Exam Head Exam: ATRAUMATIC, NORMAL INSPECTION - Eye Exam Eye Exam: EOMI - ENT Exam ENT Exam: Mucous Membranes Moist - Neck Exam Neck Exam: Full ROM. absent: Lymphadenopathy - Respiratory Exam Respiratory Exam: Rhonchi - Cardiovascular Exam Cardiovascular Exam: REGULAR RHYTHM. absent: Rubs - Neurological Exam Neurological Exam: Alert, Awake, Oriented x3 - Psychiatric Exam Psychiatric exam: Normal Affect Assessment and Plan - Assessment and Plan (Free Text) Assessment: ckd, nephrotic on arb continue to monitor AB for pulmonary infection
[2018-06-26] MEDS: MethylPREDNISolone 40 mg Vial IVP SCH ×4 (00:14→19:00)
--- NOTE | 2018-06-26 00:19 | CP.PCM.PN ---
<Shwetha Hightower - Last Filed: 06/26/18 00:18> Subjective - Date & Time of Evaluation Date of Evaluation: 06/26/18 Time of Evaluation: 00:18 - Subjective Subjective: Shwetha Hightower PGY1 Progress Note for Dr. Bosch Pt was examined at bedside. He was pleasant, had no complaints. Pt denied fever, chills, cough, shortness of breath, chest pain, abdominal pain, nausea, vomiting, diarrhea, dysuria. Pt states he feels well and is positive. Objective - Vital Signs/Intake and Output Vital Signs (last 24 hours): Temp Pulse Resp BP Pulse Ox 97.8 F 81 20 173/77 H 97 06/25/18 16:00 06/25/18 16:00 06/25/18 16:00 06/25/18 16:00 06/25/18 16:00 Intake and Output: 06/25/18 06/26/18 18:59 06:59 Intake Total 500 100 Output Total 480 Balance 500 -380 - Medications Medications: Current Medications Dextrose (Dextrose 50% Inj) 0 ml IV STAT PRN; Protocol PRN Reason: Hypoglycemia Protocol Dextrose (Glutose 15) 0 gm PO ONCE PRN; Protocol PRN Reason: Hypoglycemia Protocol Enoxaparin Sodium (Lovenox) 40 mg SC DAILY [facility] Last Admin: 06/25/18 10:55 Dose: 40 mg Epoetin Justino (Procrit) 10,000 unit SC MWF [facility] Last Admin: 06/24/18 12:54 Dose: 10,000 unit Glucagon (Glucagen Diagnostic Kit) 0 mg IM STAT PRN; Protocol PRN Reason: Hypoglycemia Protocol Guaifenesin (Robitussin) 200 mg PO Q4H PRN PRN Reason: Cough and congestion Last Admin: 06/23/18 12:28 Dose: 200 mg Dextrose (Dextrose 5% In Water 1000 Ml) 1,000 mls @ 0 mls/hr IV .Q0M PRN; Protocol PRN Reason: Hypoglycemia Protocol Imipenem/Cilastatin Sodium 500 (mg/ Sodium Chloride) 100 mls @ 100 mls/hr IVPB Q12H [facility]; Protocol Last Admin: 06/25/18 17:50 Dose: 100 mls/hr Insulin Human Regular (Novolin R) 0 unit SC ACHS [facility]; Protocol Last Admin: 06/25/18 21:57 Dose: Not Given Lisinopril (Zestril) 10 mg PO DAILY [facility] Methylprednisolone (Solu-Medrol) 40 mg IVP Q8H [facility] Last Admin: 06/26/18 00:14 Dose: 40 mg Pantoprazole Sodium (Protonix Inj) 40 mg IVP DAILY [facility] Last Admin: 06/25/18 10:54 Dose: 40 mg Sodium Bicarbonate (Sodium Bicarbonate Tab) 650 mg PO DAILY [facility] Last Admin: 06/25/18 10:55 Dose: 650 mg - Labs Labs: 06/25/18 07:50 06/25/18 07:50 - Additional Findings Additional findings: - Constitutional Appears: No Acute Distress, Chronically Ill - Head Exam Head Exam: ATRAUMATIC, NORMAL INSPECTION, NORMOCEPHALIC - Eye Exam Eye Exam: EOMI, Normal appearance Pupil Exam: NORMAL ACCOMODATION - ENT Exam ENT Exam: Mucous Membranes Moist, Normal Exam - Respiratory Exam Respiratory Exam: Rales (coarse), NORMAL BREATHING PATTERN. absent: Accessory Muscle Use, Rhonchi, Wheezes, Respiratory Distress, Stridor - Cardiovascular Exam Cardiovascular Exam: REGULAR RHYTHM, +S1, +S2 - GI/Abdominal Exam GI & Abdominal Exam: Soft, Normal Bowel Sounds. absent: Distended, Firm, Guarding, Rigid, Tenderness, Rebound - Extremities Exam Extremities Exam: Normal Capillary Refill, Normal Inspection. absent: Calf Tenderness, Pedal Edema - Back Exam Back Exam: NORMAL INSPECTION - Neurological Exam Neurological Exam: Alert, Awake, Oriented x3 - Psychiatric Exam Psychiatric exam: Normal Affect, Normal Mood - Skin Skin Exam: Dry, Intact, Normal Color, Warm Assessment and Plan - Assessment and Plan (Free Text) Assessment: 82 year old M with PMHx of HTN, HLD, DM, COPD, CKD, anemia presenting to ED worsening sob, productive cough, subjective fevers in setting of COPD exacerbation. Plan: COPD exacerbation Pulmonary fibrosis, Bronchiectasis -afebrile, no leukocytosis -CXR (06/20): R basilar infiltrate, possible PNA -CT chest (06/20): Underlying interstitial lung disease. Honeycombing noted, primarily lower lobe and lingular/R middle lobe process. Underlying findings sug gestive of primary cystic and to lesser extent traction bronchiectasis. No new/superimposed infiltrates. No suspicious pulmona -blood culture, urine culture (06/20): no growth -sputum cx: pseudomonas moderate growth, resistant to cipro, cefepime, aztreonam -spoke to Dr. Post: october d/c cefepime, start primaxin IV -Pulm recs (Dr. Post) appreciated -Albuterol q4h -Continue Solumedrol at current dose -Continue Nebulizer treatments -Patient would benefit from respiratory vest therapy -billie [facility] -solumedrol 80 mg IV -primaxin IV CKD Stage IV -Cr 2.4 (06/24), close to baseline 2.2 (08/2017) -Nephrology (Dr. Dutton) recs appreciated -renal function close to baseline -continue current rx -continue EPO -Renal u/s (06/22): echogenic renal parenchyma. Nonobstructing 4 mm R lower pole calculus, no hydronephrosis or obstructing stone b/l Chronic Anemia, likely 2/2 underlying CKD -Nephrology recs (Dr. Dutton) appreciated -begin Procrit 10,000 units SC MWF -Hb 7.4 today despite procrit -Heme/Onc recs (Dr. Lobato) appreciated -may transfuse 1 unit pRBC w/ IV lasix x1 given HTN -normotensive, continue to monitor -home med held DM -home sulfonyurea on hold due to renal function -ISS -accuchecks ACHS -hypoglycemic protocol PPx, Diet, Disposition -DVT ppx: scds, lovenox -GI: protonix -Diet: renal -PT/OT on board <Anderson Bosch H - Last Filed: 06/26/18 11:32> Objective - Vital Signs/Intake and Output Vital Signs (last 24 hours): Temp Pulse Resp BP Pulse Ox 97.8 F 74 20 171/72 H 96 06/26/18 08:00 06/26/18 08:00 06/26/18 08:00 06/26/18 08:00 06/26/18 08:00 Intake and Output: 06/26/18 06/26/18 06:59 18:59 Intake Total 200 Output Total 830 Balance -630 - Medications Medications: Current Medications Amlodipine Besylate (Norvasc) 10 mg PO DAILY [facility] Dextrose (Dextrose 50% Inj) 0 ml IV STAT PRN; Protocol PRN Reason: Hypoglycemia Protocol Dextrose (Glutose 15) 0 gm PO ONCE PRN; Protocol PRN Reason: Hypoglycemia Protocol Enoxaparin Sodium (Lovenox) 40 mg SC DAILY [facility] Last Admin: 06/26/18 09:50 Dose: 40 mg Epoetin Justino (Procrit) 10,000 unit SC MWF [facility] Last Admin: 06/24/18 12:54 Dose: 10,000 unit Glucagon (Glucagen Diagnostic Kit) 0 mg IM STAT PRN; Protocol PRN Reason: Hypoglycemia Protocol Guaifenesin (Robitussin) 200 mg PO Q4H PRN PRN Reason: Cough and congestion Last Admin: 06/23/18 12:28 Dose: 200 mg Imipenem/Cilastatin Sodium 500 (mg/ Sodium Chloride) 100 mls @ 100 mls/hr IVPB Q12H [facility]; Protocol Last Admin: 06/26/18 05:35 Dose: 100 mls/hr Insulin Human Regular (Novolin R) 0 unit SC ACHS [facility]; Protocol Last Admin: 06/26/18 08:16 Dose: 6 u Lisinopril (Zestril) 10 mg PO DAILY [facility] Last Admin: 06/26/18 09:53 Dose: 10 mg Methylprednisolone (Solu-Medrol) 20 mg IVP Q8H [facility] Pantoprazole Sodium (Protonix Inj) 40 mg IVP DAILY [facility] Last Admin: 06/26/18 09:51 Dose: 40 mg Sodium Bicarbonate (Sodium Bicarbonate Tab) 650 mg PO DAILY [facility] Last Admin: 06/26/18 09:50 Dose: 650 mg - Labs Labs: 06/25/18 07:50 06/26/18 07:43 Attending/Attestation - Attestation I have personally seen and examined this patient.: Yes I have fully participated in the care of the patient.: Yes I have reviewed all pertinent clinical information, including history, physical exam and plan: Yes Notes (Text): 06/26/18 11:29 Medical attending: Patient was seen and examined by me. Agree with the above note by the resident The patient was not in any acute distress. The blood pressure is on the high side - probably from the saline I have him previously as well as the tablet of NaBicarb He is on lisinopril, and I added on norvasc as well His coughing is much less he says. He is currently on IV Primaxin for the + Pseudomonas Aueruginosa Afebrile, and WBC stable Anderson Bosch
[2018-06-26] MEDS: (Novolin R) Insulin Human Regular 100 units/ml vial SC SCH ×4 (08:16→22:05)
[2018-06-26 08:21] LABS: ALB/GLOB RATIO 1.1 (1.0-2.1); ALBUMIN 3.1 g/dL (3.5-5.0); CALCIUM 8.5 mg/dl (8.6-10.4)
[2018-06-26] MEDS: Enoxaparin 40 mg Syringe SC SCH (09:50)
--- NOTE | 2018-06-26 11:04 | CP.PCM.PN ---
Subjective - Date & Time of Evaluation Date of Evaluation: 06/26/18 Time of Evaluation: 08:00 - Subjective Subjective: the patient seen and examined Denies cough, denies fever and chills Less short of breath Objective - Vital Signs/Intake and Output Vital Signs (last 24 hours): Temp Pulse Resp BP Pulse Ox 97.8 F 74 20 171/72 H 96 06/26/18 08:00 06/26/18 08:00 06/26/18 08:00 06/26/18 08:00 06/26/18 08:00 Intake and Output: 06/26/18 06/26/18 06:59 18:59 Intake Total 200 Output Total 830 Balance -630 - Medications Medications: Current Medications Dextrose (Dextrose 50% Inj) 0 ml IV STAT PRN; Protocol PRN Reason: Hypoglycemia Protocol Dextrose (Glutose 15) 0 gm PO ONCE PRN; Protocol PRN Reason: Hypoglycemia Protocol Enoxaparin Sodium (Lovenox) 40 mg SC DAILY [facility] Last Admin: 06/26/18 09:50 Dose: 40 mg Epoetin Justino (Procrit) 10,000 unit SC MWF [facility] Last Admin: 06/24/18 12:54 Dose: 10,000 unit Glucagon (Glucagen Diagnostic Kit) 0 mg IM STAT PRN; Protocol PRN Reason: Hypoglycemia Protocol Guaifenesin (Robitussin) 200 mg PO Q4H PRN PRN Reason: Cough and congestion Last Admin: 06/23/18 12:28 Dose: 200 mg Imipenem/Cilastatin Sodium 500 (mg/ Sodium Chloride) 100 mls @ 100 mls/hr IVPB Q12H [facility]; Protocol Last Admin: 06/26/18 05:35 Dose: 100 mls/hr Insulin Human Regular (Novolin R) 0 unit SC ACHS [facility]; Protocol Last Admin: 06/26/18 08:16 Dose: 6 u Lisinopril (Zestril) 10 mg PO DAILY [facility] Last Admin: 06/26/18 09:53 Dose: 10 mg Methylprednisolone (Solu-Medrol) 40 mg IVP Q8H [facility] Last Admin: 06/26/18 09:52 Dose: 40 mg Pantoprazole Sodium (Protonix Inj) 40 mg IVP DAILY [facility] Last Admin: 06/26/18 09:51 Dose: 40 mg Sodium Bicarbonate (Sodium Bicarbonate Tab) 650 mg PO DAILY [facility] Last Admin: 06/26/18 09:50 Dose: 650 mg - Labs Labs: 06/25/18 07:50 06/26/18 07:43 - Head Exam Head Exam: ATRAUMATIC, NORMOCEPHALIC - ENT Exam ENT Exam: Mucous Membranes Moist - Respiratory Exam Respiratory Exam: Rales, Rhonchi Assessment and Plan (1) Bronchiectasis Assessment & Plan: continue antibiotics for Pseudomonas infection Patient will benefit from vest therapy Continue present treatment Status: Acute (2) ILD (interstitial lung disease) Status: Acute (3) COPD (chronic obstructive pulmonary disease) Status: Acute
[2018-06-27] MEDS: MethylPREDNISolone 40 mg Vial IVP SCH ×3 (03:43→21:04)
[2018-06-27] MEDS: guaiFENesin 200 mg/10 ml Syrup UD PO PRN (04:11)
[2018-06-27] MEDS: (Novolin R) Insulin Human Regular 100 units/ml vial SC SCH ×4 (07:54→21:24)
--- NOTE | 2018-06-27 07:56 | CP.PCM.PN ---
Subjective - Date & Time of Evaluation Date of Evaluation: 06/27/18 Time of Evaluation: 07:55 - Subjective Subjective: PGY-1 Medicine Progress Note for Dr. Dias Patient seen and examined at bedside, resting comfortably. No acute overnight events reported. Patient continues to improve, reports improved shortness of breath and cough. Denies fevers/chills, chest pain, n/v/d/c. No other acute somatic complaints at this time. Objective - Vital Signs/Intake and Output Vital Signs (last 24 hours): Temp Pulse Resp BP Pulse Ox 97.7 F 71 20 171/83 H 97 06/27/18 07:46 06/27/18 07:46 06/27/18 07:46 06/27/18 07:46 06/27/18 07:46 Intake and Output: 06/27/18 06/27/18 06:59 18:59 Intake Total 600 Output Total 800 Balance -200 - Medications Medications: Current Medications Amlodipine Besylate (Norvasc) 10 mg PO DAILY [facility] Last Admin: 06/26/18 12:20 Dose: 10 mg Dextrose (Dextrose 50% Inj) 0 ml IV STAT PRN; Protocol PRN Reason: Hypoglycemia Protocol Dextrose (Glutose 15) 0 gm PO ONCE PRN; Protocol PRN Reason: Hypoglycemia Protocol Enoxaparin Sodium (Lovenox) 40 mg SC DAILY [facility] Last Admin: 06/26/18 09:50 Dose: 40 mg Epoetin Justino (Procrit) 10,000 unit SC MWF [facility] Last Admin: 06/24/18 12:54 Dose: 10,000 unit Glucagon (Glucagen Diagnostic Kit) 0 mg IM STAT PRN; Protocol PRN Reason: Hypoglycemia Protocol Guaifenesin (Robitussin) 200 mg PO Q4H PRN PRN Reason: Cough and congestion Last Admin: 06/27/18 04:11 Dose: 200 mg Imipenem/Cilastatin Sodium 500 (mg/ Sodium Chloride) 100 mls @ 100 mls/hr IVPB Q12H [facility]; Protocol Last Admin: 06/27/18 05:31 Dose: 100 mls/hr Insulin Human Regular (Novolin R) 0 unit SC ACHS [facility]; Protocol Last Admin: 06/27/18 07:54 Dose: 4 u Lisinopril (Zestril) 10 mg PO DAILY [facility] Last Admin: 06/26/18 09:53 Dose: 10 mg Methylprednisolone (Solu-Medrol) 20 mg IVP Q8H [facility] Last Admin: 06/27/18 03:43 Dose: 20 mg Pantoprazole Sodium (Protonix Ec Tab) 40 mg PO DAILY [facility] Sodium Bicarbonate (Sodium Bicarbonate Tab) 650 mg PO DAILY [facility] Last Admin: 06/26/18 09:50 Dose: 650 mg - Labs Labs: 06/25/18 07:50 06/26/18 07:43 - Constitutional Appears: Non-toxic, No Acute Distress - Head Exam Head Exam: ATRAUMATIC, NORMAL INSPECTION, NORMOCEPHALIC - Eye Exam Eye Exam: EOMI, Normal appearance, PERRL Pupil Exam: NORMAL ACCOMODATION - ENT Exam ENT Exam: Mucous Membranes Moist, Normal Exam - Neck Exam Neck Exam: Full ROM, Normal Inspection - Respiratory Exam Respiratory Exam: Clear to Ausculation Bilateral, NORMAL BREATHING PATTERN. absent: Accessory Muscle Use, Rhonchi, Wheezes, Respiratory Distress, Stridor - Cardiovascular Exam Cardiovascular Exam: REGULAR RHYTHM, +S1, +S2 - GI/Abdominal Exam GI & Abdominal Exam: Soft, Normal Bowel Sounds. absent: Distended, Firm, Guarding, Rigid, Tenderness, Organomegaly, Rebound - Extremities Exam Extremities Exam: Full ROM, Normal Capillary Refill, Normal Inspection. absent: Calf Tenderness, Pedal Edema - Back Exam Back Exam: NORMAL INSPECTION - Neurological Exam Neurological Exam: Alert, Awake, CN II-XII Intact, Normal Gait, Oriented x3 - Psychiatric Exam Psychiatric exam: Normal Affect, Normal Mood - Skin Skin Exam: Dry, Intact, Normal Color, Warm Assessment and Plan - Assessment and Plan (Free Text) Assessment: 82 year old M with PMHx of HTN, HLD, DM, COPD, CKD, anemia presenting to ED worsening sob, productive cough, subjective fevers in setting of COPD exacerbation. Plan: COPD exacerbation Pulmonary fibrosis, Bronchiectasis -afebrile, no leukocytosis -CXR (06/20): R basilar infiltrate, possible PNA -CT chest (06/20): Underlying interstitial lung disease. Honeycombing noted, primarily lower lobe and lingular/R middle lobe process. Underlying findings suggestive of primary cystic and to lesser extent traction bronchiectasis. No new/superimposed infiltrates. No suspicious pulmona -blood culture, urine culture (06/20): no growth -sputum cx: pseudomonas moderate growth, resistant to cipro, cefepime, aztreonam -Pulm recs appreciated: primaxin IV -Pulm recs (Dr. Post) appreciated -continue with present tx -primaxin IV for pseudomonas -would benefit from vest therapy -Medications -duonebs new -solumedrol 80 mg IV -primaxin IV CKD Stage IV -Cr 2.9 (06/27), close to baseline 2.2 (08/2017) -Nephrology (Dr. Dutton) recs appreciated -renal function close to baseline -continue current rx -continue EPO -Renal u/s (06/22): echogenic renal parenchyma. Nonobstructing 4 mm R lower pole calculus, no hydronephrosis or obstructing stone b/l Chronic Anemia, likely 2/2 underlying CKD -Nephrology recs (Dr. Dutton) appreciated -begin Procrit 10,000 units SC MWF -Hb 7.4 today despite procrit -Heme/Onc recs (Dr. Lobato) appreciated -may transfuse 1 unit pRBC w/ IV lasix x1 given HTN -normotensive, continue to monitor -home med held DM -home sulfonyurea on hold due to renal function -ISS -accuchecks ACHS -hypoglycemic protocol PPx, Diet, Disposition -DVT ppx: scds, lovenox -GI: protonix -Diet: renal -PT/OT on board Case discussed with Dr. Arun Reed DO, PGY-1
[2018-06-27 09:48] LABS: ALB/GLOB RATIO 1.2 (1.0-2.1); CALCIUM 8.6 mg/dl (8.6-10.4)
[2018-06-27] MEDS: Enoxaparin 40 mg Syringe SC SCH (10:15)
[2018-06-27] MEDS: Pantoprazole 40 mg EC Tab PO SCH (10:15)
[2018-06-27] MEDS: EPOETIN ALFA 10,000 UNIT/ML ML SC SCH (10:49)
--- NOTE | 2018-06-27 12:47 | CP.PCM.PN ---
Subjective - Date & Time of Evaluation Date of Evaluation: 06/24/18 Time of Evaluation: 12:00 - Subjective Subjective: Has some shortness of breath Objective - Vital Signs/Intake and Output Vital Signs (last 24 hours): Temp Pulse Resp BP Pulse Ox 97.7 F 71 20 171/83 H 97 06/27/18 07:46 06/27/18 07:46 06/27/18 07:46 06/27/18 07:46 06/27/18 07:46 Intake and Output: 06/27/18 06/27/18 06:59 18:59 Intake Total 600 Output Total 800 Balance -200 - Medications Medications: Current Medications Amlodipine Besylate (Norvasc) 10 mg PO DAILY [facility] Last Admin: 06/27/18 10:15 Dose: 10 mg Dextrose (Dextrose 50% Inj) 0 ml IV STAT PRN; Protocol PRN Reason: Hypoglycemia Protocol Dextrose (Glutose 15) 0 gm PO ONCE PRN; Protocol PRN Reason: Hypoglycemia Protocol Enoxaparin Sodium (Lovenox) 40 mg SC DAILY [facility] Last Admin: 06/27/18 10:15 Dose: 40 mg Epoetin Justino (Procrit) 10,000 unit SC MWF [facility] Last Admin: 06/27/18 10:49 Dose: 10,000 unit Glucagon (Glucagen Diagnostic Kit) 0 mg IM STAT PRN; Protocol PRN Reason: Hypoglycemia Protocol Guaifenesin (Robitussin) 200 mg PO Q4H PRN PRN Reason: Cough and congestion Last Admin: 06/27/18 04:11 Dose: 200 mg Imipenem/Cilastatin Sodium 500 (mg/ Sodium Chloride) 100 mls @ 100 mls/hr IVPB Q12H [facility]; Protocol Last Admin: 06/27/18 05:31 Dose: 100 mls/hr Insulin Human Regular (Novolin R) 0 unit SC ACHS [facility]; Protocol Last Admin: 06/27/18 12:00 Dose: 6 u Lisinopril (Zestril) 10 mg PO DAILY [facility] Last Admin: 06/27/18 10:15 Dose: 10 mg Methylprednisolone (Solu-Medrol) 20 mg IVP Q8H [facility] Last Admin: 06/27/18 12:01 Dose: 20 mg Pantoprazole Sodium (Protonix Ec Tab) 40 mg PO DAILY [facility] Last Admin: 06/27/18 10:15 Dose: 40 mg Sodium Bicarbonate (Sodium Bicarbonate Tab) 650 mg PO DAILY [facility] Last Admin: 06/27/18 10:15 Dose: 650 mg - Labs Labs: 06/25/18 07:50 06/27/18 06:58 - Head Exam Head Exam: ATRAUMATIC - Eye Exam Eye Exam: Normal appearance - ENT Exam ENT Exam: Mucous Membranes Dry - Respiratory Exam Respiratory Exam: NORMAL BREATHING PATTERN - Cardiovascular Exam Cardiovascular Exam: +S1, +S2 - GI/Abdominal Exam GI & Abdominal Exam: Normal Bowel Sounds Assessment and Plan (1) Anemia Assessment & Plan: anemia of CKD, on Procrit 1U PRBC transfusion Status: Acute (2) Monoclonal gammopathy Assessment & Plan: repeat w/u sent Status: Acute
--- NOTE | 2018-06-27 12:48 | CP.PCM.PN ---
Subjective - Date & Time of Evaluation Date of Evaluation: 06/25/18 Time of Evaluation: 12:00 - Subjective Subjective: Has some shortness of breath Objective - Vital Signs/Intake and Output Vital Signs (last 24 hours): Temp Pulse Resp BP Pulse Ox 97.7 F 71 20 171/83 H 97 06/27/18 07:46 06/27/18 07:46 06/27/18 07:46 06/27/18 07:46 06/27/18 07:46 Intake and Output: 06/27/18 06/27/18 06:59 18:59 Intake Total 600 Output Total 800 Balance -200 - Medications Medications: Current Medications Amlodipine Besylate (Norvasc) 10 mg PO DAILY [facility] Last Admin: 06/27/18 10:15 Dose: 10 mg Dextrose (Dextrose 50% Inj) 0 ml IV STAT PRN; Protocol PRN Reason: Hypoglycemia Protocol Dextrose (Glutose 15) 0 gm PO ONCE PRN; Protocol PRN Reason: Hypoglycemia Protocol Enoxaparin Sodium (Lovenox) 40 mg SC DAILY [facility] Last Admin: 06/27/18 10:15 Dose: 40 mg Epoetin Justino (Procrit) 10,000 unit SC MWF [facility] Last Admin: 06/27/18 10:49 Dose: 10,000 unit Glucagon (Glucagen Diagnostic Kit) 0 mg IM STAT PRN; Protocol PRN Reason: Hypoglycemia Protocol Guaifenesin (Robitussin) 200 mg PO Q4H PRN PRN Reason: Cough and congestion Last Admin: 06/27/18 04:11 Dose: 200 mg Imipenem/Cilastatin Sodium 500 (mg/ Sodium Chloride) 100 mls @ 100 mls/hr IVPB Q12H [facility]; Protocol Last Admin: 06/27/18 05:31 Dose: 100 mls/hr Insulin Human Regular (Novolin R) 0 unit SC ACHS [facility]; Protocol Last Admin: 06/27/18 12:00 Dose: 6 u Lisinopril (Zestril) 10 mg PO DAILY [facility] Last Admin: 06/27/18 10:15 Dose: 10 mg Methylprednisolone (Solu-Medrol) 20 mg IVP Q8H [facility] Last Admin: 06/27/18 12:01 Dose: 20 mg Pantoprazole Sodium (Protonix Ec Tab) 40 mg PO DAILY [facility] Last Admin: 06/27/18 10:15 Dose: 40 mg Sodium Bicarbonate (Sodium Bicarbonate Tab) 650 mg PO DAILY [facility] Last Admin: 06/27/18 10:15 Dose: 650 mg - Labs Labs: 06/25/18 07:50 06/27/18 06:58 - Head Exam Head Exam: ATRAUMATIC - Eye Exam Eye Exam: Normal appearance - ENT Exam ENT Exam: Mucous Membranes Dry - Respiratory Exam Respiratory Exam: NORMAL BREATHING PATTERN - Cardiovascular Exam Cardiovascular Exam: +S1, +S2 - GI/Abdominal Exam GI & Abdominal Exam: Normal Bowel Sounds Assessment and Plan (1) Anemia Assessment & Plan: anemia of CKD, on Procrit PRBC transfusion PRN Status: Acute (2) Monoclonal gammopathy Assessment & Plan: f/u w/u Status: Acute
--- NOTE | 2018-06-27 12:50 | CP.PCM.PN ---
Subjective - Date & Time of Evaluation Date of Evaluation: 06/26/18 Time of Evaluation: 12:00 - Subjective Subjective: Breathing better Objective - Vital Signs/Intake and Output Vital Signs (last 24 hours): Temp Pulse Resp BP Pulse Ox 97.7 F 71 20 171/83 H 97 06/27/18 07:46 06/27/18 07:46 06/27/18 07:46 06/27/18 07:46 06/27/18 07:46 Intake and Output: 06/27/18 06/27/18 06:59 18:59 Intake Total 600 Output Total 800 Balance -200 - Medications Medications: Current Medications Amlodipine Besylate (Norvasc) 10 mg PO DAILY [facility] Last Admin: 06/27/18 10:15 Dose: 10 mg Dextrose (Dextrose 50% Inj) 0 ml IV STAT PRN; Protocol PRN Reason: Hypoglycemia Protocol Dextrose (Glutose 15) 0 gm PO ONCE PRN; Protocol PRN Reason: Hypoglycemia Protocol Enoxaparin Sodium (Lovenox) 40 mg SC DAILY [facility] Last Admin: 06/27/18 10:15 Dose: 40 mg Epoetin Justino (Procrit) 10,000 unit SC MWF [facility] Last Admin: 06/27/18 10:49 Dose: 10,000 unit Glucagon (Glucagen Diagnostic Kit) 0 mg IM STAT PRN; Protocol PRN Reason: Hypoglycemia Protocol Guaifenesin (Robitussin) 200 mg PO Q4H PRN PRN Reason: Cough and congestion Last Admin: 06/27/18 04:11 Dose: 200 mg Imipenem/Cilastatin Sodium 500 (mg/ Sodium Chloride) 100 mls @ 100 mls/hr IVPB Q12H [facility]; Protocol Last Admin: 06/27/18 05:31 Dose: 100 mls/hr Insulin Human Regular (Novolin R) 0 unit SC ACHS [facility]; Protocol Last Admin: 06/27/18 12:00 Dose: 6 u Lisinopril (Zestril) 10 mg PO DAILY [facility] Last Admin: 06/27/18 10:15 Dose: 10 mg Methylprednisolone (Solu-Medrol) 20 mg IVP Q8H [facility] Last Admin: 06/27/18 12:01 Dose: 20 mg Pantoprazole Sodium (Protonix Ec Tab) 40 mg PO DAILY [facility] Last Admin: 06/27/18 10:15 Dose: 40 mg Sodium Bicarbonate (Sodium Bicarbonate Tab) 650 mg PO DAILY [facility] Last Admin: 06/27/18 10:15 Dose: 650 mg - Labs Labs: 06/25/18 07:50 06/27/18 06:58 - Head Exam Head Exam: ATRAUMATIC - Eye Exam Eye Exam: Normal appearance - ENT Exam ENT Exam: Mucous Membranes Dry - Respiratory Exam Respiratory Exam: NORMAL BREATHING PATTERN - Cardiovascular Exam Cardiovascular Exam: +S1, +S2 - GI/Abdominal Exam GI & Abdominal Exam: Normal Bowel Sounds Assessment and Plan (1) Anemia Assessment & Plan: improved anemia of CKD, on Procrit s/p 1U PRBC Status: Acute (2) Monoclonal gammopathy Assessment & Plan: f/u w/u Status: Acute
--- NOTE | 2018-06-27 12:50 | CP.PCM.DIS ---
<Leroy Reed - Last Filed: 06/29/18 10:54> Provider - Provider Date of Admission: 06/20/18 16:16 Attending physician: Sabino Dias MD Consults: 06/20/18 16:42 Physician Consult Stat Comment: Consulting Provider: Greg Dutton Consulting Physician: Greg Dutton Reason for Consult: ckd stage III, uptrending Cr 06/20/18 16:44 Physician Consult Stat Comment: Consulting Provider: Geovani Post Consulting Physician: Geovani Post Reason for Consult: copd exacerbation, possible pna/hx intersitital lung dz Additional Comments: seen by you in past 06/20/18 17:18 Hematology Oncology Consult Routine Comment: Consulting Provider: Ki Lobato Consulting Physician: Ki Lobato Reason for Consult: chronic anemia, renal failure 06/20/18 18:47 Inpatient DIRECTOR PATIENT Core Measures Referral Routine Comment: Physician Instructions: Reason For Exam: new admission. Pneumonia, SOB 06/22/18 15:35 Wound Care [Nursing Referral for Wound Care] Routine Comment: Physician Instructions: wound care Reason For Exam: peg site infection Time Spent in preparation of Discharge (in minutes): 40 Hospital Course - Lab Results Lab Results: Micro Results 06/20/18 16:54 Blood Blood Culture - Final NO GROWTH AFTER 5 DAYS 06/20/18 16:54 Blood Gram Stain - Final TEST NOT PERFORMED 06/20/18 15:15 Blood Blood Culture - Final NO GROWTH AFTER 5 DAYS 06/20/18 15:15 Blood Gram Stain - Final TEST NOT PERFORMED 06/23/18 20:19 Other: Please Indicate Mycobacterial Culture - Preliminary 06/21/18 17:04 Sputum Gram Stain - Final 06/21/18 17:04 Sputum Sputum Culture - Final Pseudomonas Aeruginosa 06/23/18 20:19 Sputum Gram Stain - Final 06/20/18 16:54 Urine,Nunez Urine Culture - Final No Growth (<1,000 CFU/ML) Most Recent Lab Values WBC 6.5 K/uL (4.8-10.8) 06/25/18 07:50 RBC 2.73 Mil/uL (4.40-5.90) L 06/25/18 07:50 Hgb 9.2 g/dL (12.0-18.0) L 06/25/18 07:50 Hct 26.9 % (35.0-51.0) L 06/25/18 07:50 MCV 98.5 fL (80.0-94.0) H D 06/25/18 07:50 MCH 33.7 pg (27.0-31.0) H 06/25/18 07:50 MCHC 34.2 g/dL (33.0-37.0) 06/25/18 07:50 RDW 15.7 % (11.5-14.5) H 06/25/18 07:50 Plt Count 188 K/uL (130-400) 06/25/18 07:50 MPV 8.1 fL (7.2-11.7) 06/25/18 07:50 Neut % (Auto) 93.7 % (50.0-75.0) H 06/25/18 07:50 Lymph % (Auto) 3.4 % (20.0-40.0) L 06/25/18 07:50 [place] % (Auto) 2.8 % (0.0-10.0) 06/25/18 07:50 Eos % (Auto) 0.1 % (0.0-4.0) 06/25/18 07:50 Baso % (Auto) 0.0 % (0.0-2.0) 06/25/18 07:50 Neut # (Auto) 6.1 K/uL (1.8-7.0) 06/25/18 07:50 Lymph # (Auto) 0.2 K/uL (1.0-4.3) L 06/25/18 07:50 [place] # (Auto) 0.2 K/uL (0.0-0.8) 06/25/18 07:50 Eos # (Auto) 0.0 K/uL (0.0-0.7) 06/25/18 07:50 Baso # (Auto) 0.0 K/uL (0.0-0.2) 06/25/18 07:50 Neutrophils % (Manual) 90 % (50-75) H 06/25/18 07:50 Band Neutrophils % 3 % (0-2) H 06/25/18 07:50 Lymphocytes % (Manual) 2 % (20-40) L 06/25/18 07:50 Monocytes % (Manual) 5 % (0-10) 06/25/18 07:50 Eosinophils % (Manual) 1 % (0-4) 06/20/18 15:22 Myelocytes % 2 % (0-0) H 06/24/18 07:10 Platelet Estimate Normal (NORMAL) 06/25/18 07:50 Large Platelets Present 06/25/18 07:50 Polychromasia Slight 06/25/18 07:50 Hypochromasia (manual) Slight 06/25/18 07:50 Poikilocytosis (manual Slight 06/23/18 06:58 Anisocytosis (manual) Slight 06/25/18 07:50 Macrocytosis (manual) Slight 06/24/18 07:10 Target Cells Slight 06/20/18 15:22 Ovalocytes Slight 06/23/18 06:58 Retic Count 0.6 % (0.5-1.5) 06/24/18 07:10 Sodium 137 mmol/L (132-148) 06/27/18 06:58 Potassium 4.9 mmol/L (3.6-5.2) 06/27/18 06:58 Chloride 110 mmol/L (98-107) H 06/27/18 06:58 Carbon Dioxide 18 mmol/L (22-30) L 06/27/18 06:58 Anion Gap 14 (10-20) 06/27/18 06:58 BUN 86 mg/dL (9-20) H 06/27/18 06:58 Creatinine 2.9 mg/dL (0.8-1.5) H 06/27/18 06:58 Est GFR ( Amer) 25 06/27/18 06:58 Est GFR (Non-Af Amer) 21 06/27/18 06:58 POC Glucose (mg/dL) 290 mg/dL (65-110) H 06/27/18 11:17 Random Glucose 210 mg/dL (75-110) H D 06/27/18 06:58 Hemoglobin A1c 5.6 % (4.2-6.5) 06/20/18 18:46 Calcium 8.6 mg/dl (8.6-10.4) 06/27/18 06:58 Phosphorus 4.6 mg/dL (2.5-4.5) H 06/22/18 06:41 Magnesium 1.5 mg/dL (1.6-2.3) L 06/22/18 06:41 % Saturation 44 (20-55) 06/22/18 06:41 Ferritin 323.0 ng/mL 06/22/18 06:41 Total Bilirubin 0.4 mg/dL (0.2-1.3) 06/27/18 06:58 AST 22 U/L (17-59) 06/27/18 06:58 ALT 25 U/L (21-72) 06/27/18 06:58 Alkaline Phosphatase 59 U/L (38-126) 06/27/18 06:58 Total Protein 5.6 g/dL (6.3-8.3) L 06/27/18 06:58 Total Protein (PEP) 5.8 g/dL (6.1-8.1) L 06/24/18 07:10 Albumin 3.0 g/dL (3.5-5.0) L 06/27/18 06:58 Globulin 2.6 gm/dL (2.2-3.9) 06/27/18 06:58 Albumin/Globulin Ratio 1.2 (1.0-2.1) 06/27/18 06:58 Vitamin B12 601 pg/mL (239-931) 06/24/18 07:10 Folate 19.3 ng/mL 06/24/18 07:10 PTH Intact Whole Molec 145 pg/mL (14-64) H 06/22/18 06:41 Urine Color Yellow (YELLOW) 06/21/18 17:04 Urine Clarity Clear (Clear) 06/21/18 17:04 Urine pH 5.0 (5.0-8.0) 06/21/18 17:04 Ur Specific [place] 1.013 (1.003-1.030) 06/21/18 17:04 Urine Protein 2+ mg/dL (NEGATIVE) H 06/21/18 17:04 Urine Glucose (UA) 2+ mg/dL (Normal) H 06/21/18 17:04 Urine Ketones Negative mg/dL (NEGATIVE) 06/21/18 17:04 Urine Blood 1+ (NEGATIVE) H 06/21/18 17:04 Urine Nitrate Negative (NEGATIVE) 06/21/18 17:04 Urine Bilirubin Negative (NEGATIVE) 06/21/18 17:04 Urine Urobilinogen Normal mg/dL (0.2-1.0) 06/21/18 17:04 Ur Leukocyte Esterase Neg Charmaine/uL (Negative) 06/21/18 17:04 Urine WBC (Auto) 1 /hpf (0-5) 06/21/18 17:04 Urine RBC (Auto) 1 /hpf (0-3) 06/21/18 17:04 Ur Squamous Epith Cells 1 /hpf (0-5) 06/21/18 17:04 Urine Bacteria Rare (<OCC) 06/21/18 17:04 Ur Random Sodium 36 mmol/L 06/21/18 17:04 Urine Collection Time 24 HRS 06/23/18 07:07 Urine Total Volume 1575 mL 06/23/18 07:07 Urine Chloride 43 mmol/L (32-290) 06/21/18 17:04 Ur Protein 24 Hr Calc 4173.8 mg/24hr (42-225) H 06/23/18 07:07 Influenza Typ A,B (EIA) Negative for flu a/b (NEGATIVE) 06/20/18 15:22 Ur L.pneumophila Ag Negative (NEGATIVE) 06/23/18 20:19 Blood Type O POSITIVE 06/24/18 11:32 Antibody Screen Negative 06/24/18 11:32 - Hospital Course Hospital Course: HPI: Patient is a 82 year old male with a past medical history of COPD, hypertension, CKD and diabetes presenting to the emergency room with a complaint of shortness of breath, productive cough with thick yellow sputum, subjective fever and chills. The cough began approximately 2 weeks ago per patient but son says it really worsened the past 3 days, experiencing subjective fevers, chills and congestion. The patient has been taking all of his COPD medications as directed, son states he uses nebulizers nearly every day, but is still feeling short of breath. He does not use oxygen at home. Patient denies nausea, vomiting, diarrhea, constipation, chest pain, abdominal pain, urinary symptoms, headaches, blurry vision, numbness or tingling. During course of admission: Chest X-Ray demonstrated. R basilar infiltrate, possible pneumonia. CT chest demonstrated underlying interstitial lung disease. Honeycombing was noted, primarily in the lower lobe and lingular/R middle lobe process. Underlying findings suggestive of primary cystic and to lesser extent traction bronchiectasis. No new/superimposed infiltrates. Blood cultures and urine cultures returned no growth. However, sputum cultures returned moderate pseudomonal moderate growth, resistant to cipro, cefepime, aztreonam. Pulmonolgy (Dr. Post) was consulted, recommended IV primaxin. Patient was started on IV primaxin, per further recommendations was continued on duonebs, solumedrol treatment. Nephrology (Dr. Dutton) was consulted for patient's chronic kidney disease. Renal ultrasound performed showed echogenic renal parenchyma; nonobstructing 4 mm R lower pole calculus, no hydronephrosis or obstructing stone bilaterally. Patient was started on procrit 10,000 units MWF, per Nephro recs, to treat chronic anemia likely secondary to underlying chronic kidney disease. He was also transfused 1 unit of packed RBCs, per Heme/Onc recommendations (Dr. Lobato). Patient's shortness of breath and cough continued to improve. He remained afebrile during course of admission with no leukocytosis noted. Patient is medically stable for discharge to home with home services, as per Dr. Dias. Patient is instructed to resume all home medications as prescribed. Patient states he has all medications at home and does not need refills. Patient is instructed to follow up with his primary care provider (Dr. Miranda) within 1 week of discharge for continued care and monitoring. Please also follow up with your electrical manufacturing technician (Dr. Cruz) as well as Nephrology (Dr. Dutton) and Hematology (Dr. Lobato) within 1-2 weeks of discharge for continued care. If symptoms worsen, please return to ED immediately. The following is a summary of hospital course. For full detail, please refer to EMR. - Date & Time of H&P Date of H&P: 06/27/18 Time of H&P: 12:48 Discharge Exam - Head Exam Head Exam: ATRAUMATIC, NORMAL INSPECTION, NORMOCEPHALIC - Eye Exam Eye Exam: EOMI, Normal appearance, PERRL Pupil Exam: NORMAL ACCOMODATION - ENT Exam ENT Exam: Mucous Membranes Moist, Normal Exam - Neck Exam Neck exam: Full Rom, Normal Inspection - Respiratory Exam Respiratory Exam: NORMAL BREATHING PATTERN, UNREMARKABLE. absent: Accessory Muscle Use, Rhonchi, Respiratory Distress, Stridor - Cardiovascular Exam Cardiovascular Exam: REGULAR RHYTHM, +S1, +S2 - GI/Abdominal Exam GI & Abdominal Exam: Normal Bowel Sounds, Soft, Unremarkable. absent: Distended, Firm, Guarding, Rebound, Rigid, Tenderness - Extremities Exam Extremities exam: normal capillary refill, normal inspection, pedal pulses present - Back Exam Back exam: NORMAL INSPECTION - Neurological Exam Neurological exam: Alert, CN II-XII Intact, Normal Gait, Oriented x3 - Psychiatric Exam Psychiatric exam: Normal Affect, Normal Mood - Skin Skin Exam: Dry, Intact, Normal Color, Warm Discharge Plan - Discharge Medications Prescriptions: Amoxicillin/Clavulanate [Augmentin 875 MG-125 MG] 1 tab PO BID #14 tab RX: Lactobacillus Acidophilus [Acidophilus Lactobacilli] 1 each PO DAILY #7 capsule - Follow Up Plan Condition: STABLE Disposition: HOME/ ROUTINE Instructions: Pneumonia, Adult (DC), Exacerbation of COPD (DC), Amoxicillin Additional Instructions: Patient is medically stable for discharge to home with home services, as per Dr. Dias. Patient is instructed to resume all home medications as prescribed. Scripts have been provided for Augmentin and probiotics to be taken as indicated. Patient states he has all other home meds and does not need scripts. Patient is instructed to follow up with his primary care provider (Dr. Miranda) within 1 week of discharge for continued care and monitoring. Please also follow up with your electrical manufacturing technician (Dr. Cruz) as well as Nephrology (Dr. Dutton) and Hematology (Dr. Lobato) within 1-2 weeks of discharge for continued care. If symptoms worsen, please return to ED immediately. Referrals: Ki Lobato MD [Staff Provider] - Chevy Cruz MD [Medical Doctor] - Greg Dutton MD [Staff Provider] - PCP,NO [Non-Staff] - <Sabino Dias - Last Filed: 06/30/18 17:49> Provider - Provider Date of Admission: 06/20/18 16:16 Attending physician: Sabino Dias MD Consults: 06/20/18 16:42 Physician Consult Stat Comment: Consulting Provider: Greg Dutton Consulting Physician: Greg Dutton Reason for Consult: ckd stage III, uptrending Cr 06/20/18 16:44 Physician Consult Stat Comment: Consulting Provider: Geovani Post Consulting Physician: Geovani Post Reason for Consult: copd exacerbation, possible pna/hx intersitital lung dz Additional Comments: seen by you in past 06/20/18 17:18 Hematology Oncology Consult Routine Comment: Consulting Provider: Ki Lobato Consulting Physician: Ki Lobato Reason for Consult: chronic anemia, renal failure 06/20/18 18:47 Inpatient DIRECTOR PATIENT Core Measures Referral Routine Comment: Physician Instructions: Reason For Exam: new admission. Pneumonia, SOB 06/22/18 15:35 Wound Care [Nursing Referral for Wound Care] Routine Comment: Physician Instructions: wound care Reason For Exam: peg site infection Hospital Course - Lab Results Lab Results: Micro Results 06/20/18 16:54 Blood Blood Culture - Final NO GROWTH AFTER 5 DAYS 06/20/18 16:54 Blood Gram Stain - Final TEST NOT PERFORMED 06/20/18 15:15 Blood Blood Culture - Final NO GROWTH AFTER 5 DAYS 06/20/18 15:15 Blood Gram Stain - Final TEST NOT PERFORMED 06/23/18 20:19 Other: Please Indicate Mycobacterial Culture - Preliminary 06/21/18 17:04 Sputum Gram Stain - Final 06/21/18 17:04 Sputum Sputum Culture - Final Pseudomonas Aeruginosa 06/23/18 20:19 Sputum Gram Stain - Final 06/20/18 16:54 Urine,Nunez Urine Culture - Final No Growth (<1,000 CFU/ML) Most Recent Lab Values WBC 10.3 K/uL (4.8-10.8) 06/29/18 07:37 RBC 2.87 Mil/uL (4.40-5.90) L 06/29/18 07:37 Hgb 9.7 g/dL (12.0-18.0) L 06/29/18 07:37 Hct 28.5 % (35.0-51.0) L 06/29/18 07:37 MCV 99.3 fL (80.0-94.0) H 06/29/18 07:37 MCH 33.9 pg (27.0-31.0) H 06/29/18 07:37 MCHC 34.1 g/dL (33.0-37.0) 06/29/18 07:37 RDW 15.1 % (11.5-14.5) H 06/29/18 07:37 Plt Count 225 K/uL (130-400) 06/29/18 07:37 MPV 8.2 fL (7.2-11.7) 06/29/18 07:37 Neut % (Auto) 93.3 % (50.0-75.0) H 06/29/18 07:37 Lymph % (Auto) 3.1 % (20.0-40.0) L 06/29/18 07:37 [place] % (Auto) 3.4 % (0.0-10.0) 06/29/18 07:37 Eos % (Auto) 0.0 % (0.0-4.0) 06/29/18 07:37 Baso % (Auto) 0.2 % (0.0-2.0) 06/29/18 07:37 Neut # (Auto) 9.6 K/uL (1.8-7.0) H 06/29/18 07:37 Lymph # (Auto) 0.3 K/uL (1.0-4.3) L 06/29/18 07:37 [place] # (Auto) 0.4 K/uL (0.0-0.8) 06/29/18 07:37 Eos # (Auto) 0.0 K/uL (0.0-0.7) 06/29/18 07:37 Baso # (Auto) 0.0 K/uL (0.0-0.2) 06/29/18 07:37 Neutrophils % (Manual) 92 % (50-75) H 06/29/18 07:37 Band Neutrophils % 2 % (0-2) 06/29/18 07:37 Lymphocytes % (Manual) 1 % (20-40) L 06/29/18 07:37 Monocytes % (Manual) 5 % (0-10) 06/29/18 07:37 Eosinophils % (Manual) 1 % (0-4) 06/20/18 15:22 Myelocytes % 2 % (0-0) H 06/24/18 07:10 Platelet Estimate Normal (NORMAL) 06/29/18 07:37 Large Platelets Present 06/25/18 07:50 Polychromasia Slight 06/29/18 07:37 Hypochromasia (manual) Slight 06/28/18 06:44 Poikilocytosis (manual Slight 06/28/18 06:44 Basophilic Stippling Slight 06/28/18 06:44 Anisocytosis (manual) Slight 06/29/18 07:37 Macrocytosis (manual) Slight 06/29/18 07:37 Target Cells Slight 06/20/18 15:22 Tear Drop Cells Slight 06/29/18 07:37 Ovalocytes Slight 06/28/18 06:44 Retic Count 0.6 % (0.5-1.5) 06/24/18 07:10 Sodium 135 mmol/L (132-148) 06/29/18 07:00 Potassium 4.4 mmol/L (3.6-5.2) 06/29/18 07:00 Chloride 108 mmol/L (98-107) H 06/29/18 07:00 Carbon Dioxide 19 mmol/L (22-30) L 06/29/18 07:00 Anion Gap 13 (10-20) 06/29/18 07:00 BUN 93 mg/dL (9-20) H 06/29/18 07:00 Creatinine 2.7 mg/dL (0.8-1.5) H 06/29/18 07:00 Est GFR ( Amer) 06/29/18 07:00 Est GFR (Non-Af Amer) 06/29/18 07:00 POC Glucose (mg/dL) 337 mg/dL (65-110) H 06/29/18 16:30 Random Glucose 231 mg/dL (75-110) H 06/29/18 07:00 Hemoglobin A1c 5.6 % (4.2-6.5) 06/20/18 18:46 Calcium 8.3 mg/dl (8.6-10.4) L 06/29/18 07:00 Phosphorus 5.0 mg/dL (2.5-4.5) H 06/29/18 07:00 Magnesium 1.7 mg/dL (1.6-2.3) 06/29/18 07:00 % Saturation 44 (20-55) 06/22/18 06:41 Ferritin 323.0 ng/mL 06/22/18 06:41 Total Bilirubin 0.4 mg/dL (0.2-1.3) 06/27/18 06:58 AST 22 U/L (17-59) 06/27/18 06:58 ALT 25 U/L (21-72) 06/27/18 06:58 Alkaline Phosphatase 59 U/L (38-126) 06/27/18 06:58 Total Protein 5.6 g/dL (6.3-8.3) L 06/27/18 06:58 Total Protein (PEP) 5.8 g/dL (6.1-8.1) L 06/24/18 07:10 Albumin 3.0 g/dL (3.5-5.0) L 06/27/18 06:58 Albumin (PEP) 3.1 g/dL (3.8-4.8) L 06/24/18 07:10 Globulin 2.6 gm/dL (2.2-3.9) 06/27/18 06:58 Albumin/Globulin Ratio 1.2 (1.0-2.1) 06/27/18 06:58 Gloef-8-Mwfbamcxc 0.3 g/dL (0.2-0.3) 06/24/18 07:10 Kavrg-1-Dgygxrllu 0.9 g/dL (0.5-0.9) 06/24/18 07:10 Hrzh-2-Slmkyxtv 0.3 g/dL (0.4-0.6) L 06/24/18 07:10 Mynu-7-Xqiejmpa 0.3 g/dL (0.2-0.5) 06/24/18 07:10 Gamma Globulins 0.9 g/dL (0.8-1.7) 06/24/18 07:10 Abnorm Protein Band 1 TEST NOT PERFORMED 06/24/18 07:10 Abnorm Protein Band 2 TEST NOT PERFORMED 06/24/18 07:10 Abnorm Protein Band 3 TEST NOT PERFORMED 06/24/18 07:10 Vitamin B12 601 pg/mL (239-931) 06/24/18 07:10 Folate 19.3 ng/mL 06/24/18 07:10 PTH Intact Whole Molec 145 pg/mL (14-64) H 06/22/18 06:41 Urine Color Yellow (YELLOW) 06/21/18 17:04 Urine Clarity Clear (Clear) 06/21/18 17:04 Urine pH 5.0 (5.0-8.0) 06/21/18 17:04 Ur Specific [place] 1.013 (1.003-1.030) 06/21/18 17:04 Urine Protein 2+ mg/dL (NEGATIVE) H 06/21/18 17:04 Urine Glucose (UA) 2+ mg/dL (Normal) H 06/21/18 17:04 Urine Ketones Negative mg/dL (NEGATIVE) 06/21/18 17:04 Urine Blood 1+ (NEGATIVE) H 06/21/18 17:04 Urine Nitrate Negative (NEGATIVE) 06/21/18 17:04 Urine Bilirubin Negative (NEGATIVE) 06/21/18 17:04 Urine Urobilinogen Normal mg/dL (0.2-1.0) 06/21/18 17:04 Ur Leukocyte Esterase Neg Charmaine/uL (Negative) 06/21/18 17:04 Urine WBC (Auto) 1 /hpf (0-5) 06/21/18 17:04 Urine RBC (Auto) 1 /hpf (0-3) 06/21/18 17:04 Ur Squamous Epith Cells 1 /hpf (0-5) 06/21/18 17:04 Urine Bacteria Rare (<OCC) 06/21/18 17:04 Ur Random Sodium 36 mmol/L 06/21/18 17:04 Urine Collection Time 24 HRS 06/23/18 07:07 Urine Total Volume 1575 mL 06/23/18 07:07 Urine Chloride 43 mmol/L (32-290) 06/21/18 17:04 Ur Protein 24 Hr Calc 4173.8 mg/24hr (42-225) H 06/23/18 07:07 YASMIN & SPEP Interp See note 06/24/18 07:10 Serum Immunofixation Detected (Not Detected) H 06/24/18 07:10 [place]/Lambda Light Chain (()) 06/24/18 07:10 Free [place] Light Chains 57.0 mg/L (3.3-19.4) H 06/24/18 07:10 Free Lambda Light Chain 57.9 mg/L (5.7-26.3) H 06/24/18 07:10 Free [place]/Lambda Ratio 0.98 (0.26-1.65) 06/24/18 07:10 Influenza Typ A,B (EIA) Negative for flu a/b (NEGATIVE) 06/20/18 15:22 Ur L.pneumophila Ag Negative (NEGATIVE) 06/23/18 20:19 Blood Type O POSITIVE 06/24/18 11:32 Antibody Screen Negative 06/24/18 11:32 Attending/Attestation - Attestation I have personally seen and examined this patient.: Yes I have fully participated in the care of the patient.: Yes I have reviewed all pertinent clinical information, including history, physical exam and plan: Yes Notes (Text): Discharge diagnosis 1.Exacerbation of COPD and pneumonia 2.Interstitial lung disease 3.Stage 4 chronic kidney disease 4.Anemia 06/30/18 17:49
--- NOTE | 2018-06-27 14:03 | CP.PCM.PN ---
Subjective - Date & Time of Evaluation Date of Evaluation: 06/27/18 Time of Evaluation: 14:01 - Subjective Subjective: seen and examined no f/c/dizziness/cp/n/v/d improved breathing on lisinopril Objective - Vital Signs/Intake and Output Vital Signs (last 24 hours): Temp Pulse Resp BP Pulse Ox 97.7 F 71 20 171/83 H 97 06/27/18 07:46 06/27/18 07:46 06/27/18 07:46 06/27/18 07:46 06/27/18 07:46 Intake and Output: 06/27/18 06/27/18 06:59 18:59 Intake Total 600 Output Total 800 Balance -200 - Medications Medications: Current Medications Amlodipine Besylate (Norvasc) 10 mg PO DAILY [facility] Last Admin: 06/27/18 10:15 Dose: 10 mg Dextrose (Dextrose 50% Inj) 0 ml IV STAT PRN; Protocol PRN Reason: Hypoglycemia Protocol Dextrose (Glutose 15) 0 gm PO ONCE PRN; Protocol PRN Reason: Hypoglycemia Protocol Enoxaparin Sodium (Lovenox) 40 mg SC DAILY [facility] Last Admin: 06/27/18 10:15 Dose: 40 mg Epoetin Jusitno (Procrit) 10,000 unit SC MWF [facility] Last Admin: 06/27/18 10:49 Dose: 10,000 unit Glucagon (Glucagen Diagnostic Kit) 0 mg IM STAT PRN; Protocol PRN Reason: Hypoglycemia Protocol Guaifenesin (Robitussin) 200 mg PO Q4H PRN PRN Reason: Cough and congestion Last Admin: 06/27/18 04:11 Dose: 200 mg Imipenem/Cilastatin Sodium 500 (mg/ Sodium Chloride) 100 mls @ 100 mls/hr IVPB Q12H [facility]; Protocol Last Admin: 06/27/18 05:31 Dose: 100 mls/hr Insulin Human Regular (Novolin R) 0 unit SC ACHS [facility]; Protocol Last Admin: 06/27/18 12:00 Dose: 6 u Lisinopril (Zestril) 10 mg PO DAILY [facility] Last Admin: 06/27/18 10:15 Dose: 10 mg Methylprednisolone (Solu-Medrol) 20 mg IVP Q8H [facility] Last Admin: 06/27/18 12:01 Dose: 20 mg Pantoprazole Sodium (Protonix Ec Tab) 40 mg PO DAILY [facility] Last Admin: 06/27/18 10:15 Dose: 40 mg Sodium Bicarbonate (Sodium Bicarbonate Tab) 650 mg PO BID [facility] - Labs Labs: 06/25/18 07:50 06/27/18 06:58 - Constitutional Appears: Non-toxic, Cachectic, Chronically Ill - Head Exam Head Exam: NORMAL INSPECTION, NORMOCEPHALIC - Eye Exam Eye Exam: Normal appearance, PERRL - ENT Exam ENT Exam: Mucous Membranes Moist, Normal Exam - Neck Exam Neck Exam: Full ROM, Normal Inspection - Respiratory Exam Respiratory Exam: Clear to Ausculation Bilateral, NORMAL BREATHING PATTERN - Cardiovascular Exam Cardiovascular Exam: REGULAR RHYTHM, RRR - GI/Abdominal Exam GI & Abdominal Exam: Soft, Normal Bowel Sounds - Extremities Exam Extremities Exam: Normal Inspection - Neurological Exam Neurological Exam: Alert, Awake Assessment and Plan (1) Acute on chronic renal insufficiency Status: Acute (2) Anemia Status: Acute (3) CKD stage 4 due to type 2 diabetes mellitus Status: Acute (4) COPD exacerbation Status: Acute (5) Pneumonia Status: Acute - Assessment and Plan (Free Text) Assessment: on lisinopril for nephrotic syndrome/ dm nephropathy possible paraproteinemia based on spep/IF - will need close follow up taper steroids
--- NOTE | 2018-06-27 15:28 | CP.PCM.PN ---
Subjective - Date & Time of Evaluation Date of Evaluation: 06/27/18 Time of Evaluation: 12:00 - Subjective Subjective: 82 year old male pmh COPD, pulm fibrosis, bronchiectasis, former smoker consulted for shortness of breath. Today patient reports improved SOB. He continues to report minor dry cough. Denied fever, chills, chest pain, hemoptysis. Patient evaluated at bedside. No acute distress Afebrile. SpO2 96-98%, Breathing comfortably on room air. Good air entry bilaterally. Continue antibiotics, currently on imepenem- sputum culture pseudomonas resistant to cefepime cipro, and aztreonam, sensitive to imepenem Continue Solumedrol Continue Nebulizer treatments Continue current medical therapy Patient would benefit from respiratory vest therapy Stable for discharge tomorrow. Objective - Vital Signs/Intake and Output Vital Signs (last 24 hours): Temp Pulse Resp BP Pulse Ox 97.7 F 71 20 171/83 H 97 06/27/18 07:46 06/27/18 07:46 06/27/18 07:46 06/27/18 07:46 06/27/18 07:46 Intake and Output: 06/27/18 06/27/18 06:59 18:59 Intake Total 600 Output Total 800 Balance -200 - Medications Medications: Current Medications Amlodipine Besylate (Norvasc) 10 mg PO DAILY [facility] Last Admin: 06/27/18 10:15 Dose: 10 mg Dextrose (Dextrose 50% Inj) 0 ml IV STAT PRN; Protocol PRN Reason: Hypoglycemia Protocol Dextrose (Glutose 15) 0 gm PO ONCE PRN; Protocol PRN Reason: Hypoglycemia Protocol Enoxaparin Sodium (Lovenox) 40 mg SC DAILY [facility] Last Admin: 06/27/18 10:15 Dose: 40 mg Epoetin Justino (Procrit) 10,000 unit SC MWF [facility] Last Admin: 06/27/18 10:49 Dose: 10,000 unit Glucagon (Glucagen Diagnostic Kit) 0 mg IM STAT PRN; Protocol PRN Reason: Hypoglycemia Protocol Guaifenesin (Robitussin) 200 mg PO Q4H PRN PRN Reason: Cough and congestion Last Admin: 06/27/18 04:11 Dose: 200 mg Imipenem/Cilastatin Sodium 500 (mg/ Sodium Chloride) 100 mls @ 100 mls/hr IVPB Q12H [facility]; Protocol Last Admin: 06/27/18 05:31 Dose: 100 mls/hr Insulin Human Regular (Novolin R) 0 unit SC ACHS [facility]; Protocol Last Admin: 06/27/18 12:00 Dose: 6 u Lisinopril (Zestril) 10 mg PO DAILY [facility] Last Admin: 06/27/18 10:15 Dose: 10 mg Methylprednisolone (Solu-Medrol) 20 mg IVP Q8H [facility] Last Admin: 06/27/18 12:01 Dose: 20 mg Pantoprazole Sodium (Protonix Ec Tab) 40 mg PO DAILY [facility] Last Admin: 06/27/18 10:15 Dose: 40 mg Sodium Bicarbonate (Sodium Bicarbonate Tab) 650 mg PO BID [facility] - Labs Labs: 06/25/18 07:50 06/27/18 06:58 Assessment and Plan (1) Bronchiectasis Status: Acute (2) ILD (interstitial lung disease) Status: Acute (3) COPD (chronic obstructive pulmonary disease) Status: Acute
[2018-06-28 00:13] VITALS: O2SAT 95
[2018-06-28] MEDS: MethylPREDNISolone 40 mg Vial IVP SCH ×3 (03:07→19:33)
[2018-06-28 07:01] LABS: HEMOGLOBIN 9.2 g/dL (12.0-18.0); LYMPH # 0.4 K/uL (1.0-4.3); LYMPH % 4.2 % (20.0-40.0); MEAN CELL VOLUME 99.7 fL (80.0-94.0); MEAN CORPUSCULAR HEMOGLOBIN 33.4 pg (27.0-31.0); MEAN CORPUSCULAR HGB CONC 33.5 g/dL (33.0-37.0); MEAN PLATELET VOLUME 8.3 fL (7.2-11.7); MONO # 0.5 K/uL (0.0-0.8); MONO % 5.2 % (0.0-10.0); NEUT # 8.1 K/uL (1.8-7.0); NEUT % 90.6 % (50.0-75.0); NRBC % 0.3 % (0.0-2.0); PLATELET COUNT 226 K/uL (130-400); RBC 2.77 Mil/uL (4.40-5.90); RED CELL DISTRIBUTION WIDTH 15.2 % (11.5-14.5); WHITE BLOOD COUNT 8.9 K/uL (4.8-10.8)
[2018-06-28 07:33] LABS: CALCIUM 8.6 mg/dl (8.6-10.4)
[2018-06-28] MEDS: (Novolin R) Insulin Human Regular 100 units/ml vial SC SCH ×4 (08:35→22:00)
[2018-06-28 08:36] LABS: BANDS 4 % (0-2); LYMPHOCYTE 5 % (20-40); MONOCYTE 6 % (0-10); NEUTROPHIL 85 % (50-75); TOTAL CELLS COUNTED 100
[2018-06-28 08:37] LABS: ANISOCYTOSIS SLIGHT; HYPOCHROMIC SLIGHT; PLATELET ESTIMATE NORMAL (NORMAL); POLYCHROMIC SLIGHT
[2018-06-28 08:38] LABS: OVALOCYTES SLIGHT; POIKILOCYTOSIS SLIGHT
--- NOTE | 2018-06-28 09:28 | CP.PCM.PN ---
Subjective - Date & Time of Evaluation Date of Evaluation: 06/28/18 Time of Evaluation: 09:27 - Subjective Subjective: seen and examined no events unchanged breathing no cp / dizziness/n/v/d labs noted Objective - Vital Signs/Intake and Output Vital Signs (last 24 hours): Temp Pulse Resp BP Pulse Ox 97.5 F L 79 20 162/69 H 95 06/28/18 08:21 06/28/18 08:21 06/28/18 08:21 06/28/18 08:21 06/28/18 08:21 Intake and Output: 06/28/18 06/28/18 06:59 18:59 Intake Total 100 Output Total 350 Balance -250 - Medications Medications: Current Medications Amlodipine Besylate (Norvasc) 10 mg PO DAILY [facility] Last Admin: 06/27/18 10:15 Dose: 10 mg Dextrose (Dextrose 50% Inj) 0 ml IV STAT PRN; Protocol PRN Reason: Hypoglycemia Protocol Dextrose (Glutose 15) 0 gm PO ONCE PRN; Protocol PRN Reason: Hypoglycemia Protocol Enoxaparin Sodium (Lovenox) 40 mg SC DAILY [facility] Last Admin: 06/27/18 10:15 Dose: 40 mg Epoetin Justino (Procrit) 10,000 unit SC MWF [facility] Last Admin: 06/27/18 10:49 Dose: 10,000 unit Glucagon (Glucagen Diagnostic Kit) 0 mg IM STAT PRN; Protocol PRN Reason: Hypoglycemia Protocol Guaifenesin (Robitussin) 200 mg PO Q4H PRN PRN Reason: Cough and congestion Last Admin: 06/27/18 04:11 Dose: 200 mg Imipenem/Cilastatin Sodium 500 (mg/ Sodium Chloride) 100 mls @ 100 mls/hr IVPB Q12H [facility]; Protocol Last Admin: 06/28/18 05:38 Dose: 100 mls/hr Sodium Chloride (Sodium Chloride 0.9%) 500 mls @ 50 mls/hr IV .Q10H [facility] Insulin Human Regular (Novolin R) 0 unit SC ACHS [facility]; Protocol Last Admin: 06/28/18 08:35 Dose: 6 u Methylprednisolone (Solu-Medrol) 20 mg IVP Q8H [facility] Last Admin: 06/28/18 03:07 Dose: 20 mg Pantoprazole Sodium (Protonix Ec Tab) 40 mg PO DAILY [facility] Last Admin: 06/27/18 10:15 Dose: 40 mg Sodium Bicarbonate (Sodium Bicarbonate Tab) 650 mg PO BID [facility] Last Admin: 06/27/18 17:15 Dose: 650 mg - Labs Labs: 06/28/18 06:44 06/28/18 06:44 - Constitutional Appears: Non-toxic, No Acute Distress, Chronically Ill - Head Exam Head Exam: NORMAL INSPECTION, NORMOCEPHALIC - Eye Exam Eye Exam: Normal appearance Pupil Exam: PERRL - ENT Exam ENT Exam: Mucous Membranes Moist, Normal Exam - Neck Exam Neck Exam: Full ROM, Normal Inspection - Respiratory Exam Respiratory Exam: Rhonchi (b/l scattered), NORMAL BREATHING PATTERN - Cardiovascular Exam Cardiovascular Exam: REGULAR RHYTHM, RRR - GI/Abdominal Exam GI & Abdominal Exam: Distended, Soft, Normal Bowel Sounds - Extremities Exam Extremities Exam: Full ROM, Normal Inspection - Neurological Exam Neurological Exam: Alert, Awake, Oriented x3 - Skin Skin Exam: Intact, Normal Color Assessment and Plan (1) Acute on chronic renal insufficiency Status: Acute (2) Anemia Status: Acute (3) CKD stage 4 due to type 2 diabetes mellitus Status: Acute (4) COPD exacerbation Status: Acute (5) Pneumonia Status: Acute - Assessment and Plan (Free Text) Assessment: hyperkalemia, rise in creatinine noted. dc lisinopril gentle iv saline 500cc one dose of kayexelate
[2018-06-28] MEDS: Enoxaparin 40 mg Syringe SC SCH (10:07)
[2018-06-28] MEDS: Pantoprazole 40 mg EC Tab PO SCH (10:07)
[2018-06-28] MEDS: Sodium Chloride 0.9% 500 ML IV SCH ×2 (10:12→19:30)
--- NOTE | 2018-06-28 12:22 | CP.PCM.PN ---
<Kenney Lopes - Last Filed: 06/28/18 21:43> Subjective - Date & Time of Evaluation Date of Evaluation: 06/28/18 Time of Evaluation: 09:00 - Subjective Subjective: PGY-[address] Dias Patient is seen and examined at bedside. No acute changes overnight. Patient complains of mild gas pain in abdomen. Patient is breathing better, has slight cough at times, produces clear sputum, denies other complaints. Eating well and regular BM. No f/c chest pain, sob, n/v/d/c Objective - Vital Signs/Intake and Output Vital Signs (last 24 hours): Temp Pulse Resp BP Pulse Ox 97.5 F L 79 20 162/69 H 95 06/28/18 08:21 06/28/18 08:21 06/28/18 08:21 06/28/18 08:21 06/28/18 08:21 Intake and Output: 06/28/18 06/28/18 06:59 18:59 Intake Total 100 Output Total 350 Balance -250 - Medications Medications: Current Medications Amlodipine Besylate (Norvasc) 10 mg PO DAILY [facility] Last Admin: 06/28/18 10:07 Dose: 10 mg Dextrose (Dextrose 50% Inj) 0 ml IV STAT PRN; Protocol PRN Reason: Hypoglycemia Protocol Dextrose (Glutose 15) 0 gm PO ONCE PRN; Protocol PRN Reason: Hypoglycemia Protocol Enoxaparin Sodium (Lovenox) 40 mg SC DAILY [facility] Last Admin: 06/28/18 10:07 Dose: 40 mg Epoetin Justino (Procrit) 10,000 unit SC MWF [facility] Last Admin: 06/27/18 10:49 Dose: 10,000 unit Glimepiride (Amaryl) 1 mg PO ACB [facility] Glucagon (Glucagen Diagnostic Kit) 0 mg IM STAT PRN; Protocol PRN Reason: Hypoglycemia Protocol Guaifenesin (Robitussin) 200 mg PO Q4H PRN PRN Reason: Cough and congestion Last Admin: 06/27/18 04:11 Dose: 200 mg Imipenem/Cilastatin Sodium 500 (mg/ Sodium Chloride) 100 mls @ 100 mls/hr IVPB Q12H [facility]; Protocol Last Admin: 06/28/18 05:38 Dose: 100 mls/hr Sodium Chloride (Sodium Chloride 0.9%) 500 mls @ 50 mls/hr IV .Q10H [facility] Last Admin: 06/28/18 10:12 Dose: 50 mls/hr Insulin Human Regular (Novolin R) 0 unit SC ACHS [facility]; Protocol Last Admin: 06/28/18 08:35 Dose: 6 u Methylprednisolone (Solu-Medrol) 20 mg IVP Q8H [facility] Last Admin: 06/28/18 03:07 Dose: 20 mg Pantoprazole Sodium (Protonix Ec Tab) 40 mg PO DAILY [facility] Last Admin: 06/28/18 10:07 Dose: 40 mg Sodium Bicarbonate (Sodium Bicarbonate Tab) 650 mg PO BID [facility] Last Admin: 06/28/18 10:07 Dose: 650 mg - Labs Labs: 06/28/18 06:44 06/28/18 06:44 - Constitutional Appears: Non-toxic, No Acute Distress - Head Exam Head Exam: ATRAUMATIC, NORMAL INSPECTION, NORMOCEPHALIC Assessment and Plan - Assessment and Plan (Free Text) Plan: COPD exacerbation Pulmonary fibrosis, Bronchiectasis -afebrile, no leukocytosis -CXR (06/20): R basilar infiltrate, possible PNA -CT chest (06/20): Underlying interstitial lung disease. Honeycombing noted, primarily lower lobe and lingular/R middle lobe process. Underlying findings suggestive of primary cystic and to lesser extent traction bronchiectasis. No new/superimposed infiltrates. No suspicious pulmona -blood culture, urine culture (06/20): no growth -sputum cx: pseudomonas moderate growth, resistant to cipro, cefepime, aztreonam -Pulm recs appreciated: primaxin IV -Pulm recs (Dr. Post) appreciated -Continue antibiotics -Medications -[facility] -solumedrol 80 mg IV -primaxin IV CKD Stage IV -today K 5.6, CR 3.2 from 2.9 -Kyaxelate x 1 dose - f/u electrolyte in am tomorrow -- can be d/c if not electrolyte abnormalities - Patient to stay hospital -Nephrology (Dr. Dutton/dr Mc) recs appreciated -d/c lisinopril - gentle IV NS @ 500cc - 1 dose of kyaxelate -Renal u/s (06/22): echogenic renal parenchyma. Nonobstructing 4 mm R lower pole calculus, no hydronephrosis or obstructing stone b/l Chronic Anemia, likely 2/2 underlying CKD -Nephrology recs (Dr. Dutton) appreciated Procrit 10,000 units SC MWF -Hb 8.9 today -Heme/Onc recs (Dr. Lobato) appreciated -f/u recs HTN -continue to monitor -home med held DM -home sulfonyurea on hold due to renal function -ISS -accuchecks ACHS -hypoglycemic protocol PPx, Diet, Disposition -DVT ppx: scds, lovenox -GI: protonix -Diet: renal -PT/OT on board DISPO: follow up am labs, electrolyte, if normal and no acute changes, pt can be d/c tomorrow Plan discussed with Dr Arun Lopes <Sabino Dias - Last Filed: 06/30/18 17:53> Objective - Vital Signs/Intake and Output Vital Signs (last 24 hours): Temp Pulse Resp BP Pulse Ox 98.1 F 74 20 170/73 H 95 06/29/18 07:45 06/29/18 07:45 06/29/18 07:45 06/29/18 07:45 06/29/18 07:45 - Labs Labs: 06/29/18 07:37 06/29/18 07:00 Attending/Attestation - Attestation I have personally seen and examined this patient.: Yes I have fully participated in the care of the patient.: Yes I have reviewed all pertinent clinical information, including history, physical exam and plan: Yes Notes (Text): Seen and examined Patient is improving,mild sob 1.Exacerbation of COPD and pneumonia 2.Interstitial lung disease 3.Stage 4 chronic kidney disease 4.Anemia sputum positive for Pseudomonas
--- NOTE | 2018-06-28 16:34 | CP.PCM.PN ---
Subjective - Date & Time of Evaluation Date of Evaluation: 06/28/18 - Subjective Subjective: patient seen and examined Denies fever chills Cough much improved Afebrile Continue antibiotics Objective - Vital Signs/Intake and Output Vital Signs (last 24 hours): Temp Pulse Resp BP Pulse Ox 98.2 F 78 20 144/63 95 06/28/18 16:00 06/28/18 16:00 06/28/18 16:00 06/28/18 16:00 06/28/18 16:00 Intake and Output: 06/28/18 06/28/18 06:59 18:59 Intake Total 100 300 Output Total 350 360 Balance -250 -60 - Medications Medications: Current Medications Amlodipine Besylate (Norvasc) 10 mg PO DAILY [facility] Last Admin: 06/28/18 10:07 Dose: 10 mg Dextrose (Dextrose 50% Inj) 0 ml IV STAT PRN; Protocol PRN Reason: Hypoglycemia Protocol Dextrose (Glutose 15) 0 gm PO ONCE PRN; Protocol PRN Reason: Hypoglycemia Protocol Enoxaparin Sodium (Lovenox) 40 mg SC DAILY [facility] Last Admin: 06/28/18 10:07 Dose: 40 mg Epoetin Justino (Procrit) 10,000 unit SC MWF [facility] Last Admin: 06/27/18 10:49 Dose: 10,000 unit Glimepiride (Amaryl) 1 mg PO ACB [facility] Glucagon (Glucagen Diagnostic Kit) 0 mg IM STAT PRN; Protocol PRN Reason: Hypoglycemia Protocol Guaifenesin (Robitussin) 200 mg PO Q4H PRN PRN Reason: Cough and congestion Last Admin: 06/27/18 04:11 Dose: 200 mg Imipenem/Cilastatin Sodium 500 (mg/ Sodium Chloride) 100 mls @ 100 mls/hr IVPB Q12H [facility]; Protocol Last Admin: 06/28/18 05:38 Dose: 100 mls/hr Sodium Chloride (Sodium Chloride 0.9%) 500 mls @ 50 mls/hr IV .Q10H [facility] Last Admin: 06/28/18 10:12 Dose: 50 mls/hr Insulin Human Regular (Novolin R) 0 unit SC ACHS [facility]; Protocol Last Admin: 06/28/18 12:38 Dose: 10 u Methylprednisolone (Solu-Medrol) 20 mg IVP Q8H [facility] Last Admin: 06/28/18 12:31 Dose: 20 mg Pantoprazole Sodium (Protonix Ec Tab) 40 mg PO DAILY [facility] Last Admin: 06/28/18 10:07 Dose: 40 mg Sodium Bicarbonate (Sodium Bicarbonate Tab) 650 mg PO BID [facility] Last Admin: 06/28/18 10:07 Dose: 650 mg - Labs Labs: 06/28/18 06:44 06/28/18 06:44 Assessment and Plan (1) Bronchiectasis Status: Acute (2) ILD (interstitial lung disease) Status: Acute (3) COPD (chronic obstructive pulmonary disease) Status: Acute
[2018-06-29] MEDS: Sodium Chloride 0.9% 500 ML IV SCH ×2 (00:25→05:30)
[2018-06-29] MEDS: MethylPREDNISolone 40 mg Vial IVP SCH (03:45)
[2018-06-29 06:13] LABS: ALBUMIN (PEP) 3.1 g/dL (3.8-4.8); ALPHA-1-GLOBULIN (PEP) 0.3 g/dL (0.2-0.3)
[2018-06-29 07:46] VITALS: BP 170/73; PULSE 74; TEMP 98.1
[2018-06-29 07:46] LABS: BASO % 0.2 % (0.0-2.0); HEMOGLOBIN 9.7 g/dL (12.0-18.0); LYMPH # 0.3 K/uL (1.0-4.3); LYMPH % 3.1 % (20.0-40.0); MEAN CELL VOLUME 99.3 fL (80.0-94.0); MEAN CORPUSCULAR HEMOGLOBIN 33.9 pg (27.0-31.0); MEAN CORPUSCULAR HGB CONC 34.1 g/dL (33.0-37.0); MEAN PLATELET VOLUME 8.2 fL (7.2-11.7); MONO # 0.4 K/uL (0.0-0.8); MONO % 3.4 % (0.0-10.0); NEUT # 9.6 K/uL (1.8-7.0); NEUT % 93.3 % (50.0-75.0); NRBC % 0.1 % (0.0-2.0); PLATELET COUNT 225 K/uL (130-400); RBC 2.87 Mil/uL (4.40-5.90); RED CELL DISTRIBUTION WIDTH 15.1 % (11.5-14.5); WHITE BLOOD COUNT 10.3 K/uL (4.8-10.8)
[2018-06-29 07:56] LABS: CALCIUM 8.3 mg/dl (8.6-10.4)
[2018-06-29] MEDS: (Novolin R) Insulin Human Regular 100 units/ml vial SC SCH ×2 (08:05→16:48)
[2018-06-29 09:19] LABS: ANISOCYTOSIS SLIGHT; BANDS 2 % (0-2); LYMPHOCYTE 1 % (20-40); MONOCYTE 5 % (0-10); NEUTROPHIL 92 % (50-75); PLATELET ESTIMATE NORMAL (NORMAL); TOTAL CELLS COUNTED 100
[2018-06-29 09:20] LABS: POLYCHROMIC SLIGHT
[2018-06-29 09:22] LABS: TEARDROP CELLS SLIGHT
--- NOTE | 2018-06-29 13:33 | CP.PCM.PN ---
Subjective - Date & Time of Evaluation Date of Evaluation: 06/29/18 Time of Evaluation: 13:20 - Subjective Subjective: no acute complaints off CARIN on AB for sputum collectionno chest pain chronic sob with exertion no change in urine no headache no fever no vomiting no rash no abdominal pain Objective - Vital Signs/Intake and Output Vital Signs (last 24 hours): Temp Pulse Resp BP Pulse Ox 98.1 F 74 20 170/73 H 95 06/29/18 07:45 06/29/18 07:45 06/29/18 07:45 06/29/18 07:45 06/29/18 07:45 Intake and Output: 06/29/18 06/29/18 06:59 18:59 Intake Total 1350 Output Total 1100 Balance 250 - Medications Medications: Current Medications Amlodipine Besylate (Norvasc) 10 mg PO DAILY [facility] Last Admin: 06/28/18 10:07 Dose: 10 mg Dextrose (Dextrose 50% Inj) 0 ml IV STAT PRN; Protocol PRN Reason: Hypoglycemia Protocol Dextrose (Glutose 15) 0 gm PO ONCE PRN; Protocol PRN Reason: Hypoglycemia Protocol Enoxaparin Sodium (Lovenox) 40 mg SC DAILY [facility] Last Admin: 06/28/18 10:07 Dose: 40 mg Epoetin Justino (Procrit) 10,000 unit SC MWF [facility] Last Admin: 06/27/18 10:49 Dose: 10,000 unit Glimepiride (Amaryl) 1 mg PO ACB [facility] Last Admin: 06/29/18 08:05 Dose: 1 mg Glucagon (Glucagen Diagnostic Kit) 0 mg IM STAT PRN; Protocol PRN Reason: Hypoglycemia Protocol Guaifenesin (Robitussin) 200 mg PO Q4H PRN PRN Reason: Cough and congestion Last Admin: 06/27/18 04:11 Dose: 200 mg Imipenem/Cilastatin Sodium 500 (mg/ Sodium Chloride) 100 mls @ 100 mls/hr IVPB Q12H [facility]; Protocol Last Admin: 06/29/18 06:01 Dose: 100 mls/hr Sodium Chloride (Sodium Chloride 0.9%) 500 mls @ 50 mls/hr IV .Q10H [facility] Last Admin: 06/29/18 05:30 Dose: Not Given Insulin Human Regular (Novolin R) 0 unit SC [facility]; Protocol Last Admin: 06/29/18 08:05 Dose: 4 u Methylprednisolone (Solu-Medrol) 20 mg IVP Q8H [facility] Last Admin: 06/29/18 03:45 Dose: 20 mg Pantoprazole Sodium (Protonix Ec Tab) 40 mg PO DAILY [facility] Last Admin: 06/28/18 10:07 Dose: 40 mg Sodium Bicarbonate (Sodium Bicarbonate Tab) 650 mg PO BID [facility] Last Admin: 06/28/18 17:01 Dose: 650 mg - Labs Labs: 06/29/18 07:37 06/29/18 07:00 - Constitutional Appears: No Acute Distress, Chronically Ill - Head Exam Head Exam: ATRAUMATIC, NORMAL INSPECTION - Eye Exam Eye Exam: EOMI - ENT Exam ENT Exam: Mucous Membranes Moist - Neck Exam Neck Exam: Full ROM. absent: Lymphadenopathy - Respiratory Exam Respiratory Exam: Rales. absent: Wheezes - Cardiovascular Exam Cardiovascular Exam: REGULAR RHYTHM. absent: Rubs - GI/Abdominal Exam GI & Abdominal Exam: Soft. absent: Tenderness - Extremities Exam Extremities Exam: absent: Pedal Edema Assessment and Plan - Assessment and Plan (Free Text) Assessment: continue to trend labs continue AB for sputum culture
--- NOTE | 2018-06-29 16:25 | CP.PCM.PN ---
Subjective - Date & Time of Evaluation Date of Evaluation: 06/29/18 Time of Evaluation: 09:00 - Subjective Subjective: PGY2 Pulm Note for Dr. Post Patient seen and examined this morning at bedside. No acute events overnight. Patient is resting comfortably, saturating well on room air. Denied fever, chills, SOB, chest pain, hemoptysis. Objective - Vital Signs/Intake and Output Vital Signs (last 24 hours): Temp Pulse Resp BP Pulse Ox 98.1 F 74 20 170/73 H 95 06/29/18 07:45 06/29/18 07:45 06/29/18 07:45 06/29/18 07:45 06/29/18 07:45 Intake and Output: 06/29/18 06/29/18 06:59 18:59 Intake Total 1350 500 Output Total 1100 Balance 250 500 - Medications Medications: Current Medications Amlodipine Besylate (Norvasc) 10 mg PO DAILY [facility] Last Admin: 06/28/18 10:07 Dose: 10 mg Dextrose (Dextrose 50% Inj) 0 ml IV STAT PRN; Protocol PRN Reason: Hypoglycemia Protocol Dextrose (Glutose 15) 0 gm PO ONCE PRN; Protocol PRN Reason: Hypoglycemia Protocol Enoxaparin Sodium (Lovenox) 40 mg SC DAILY [facility] Last Admin: 06/28/18 10:07 Dose: 40 mg Epoetin Justino (Procrit) 10,000 unit SC MWF [facility] Last Admin: 06/27/18 10:49 Dose: 10,000 unit Glimepiride (Amaryl) 1 mg PO ACB [facility] Last Admin: 06/29/18 08:05 Dose: 1 mg Glucagon (Glucagen Diagnostic Kit) 0 mg IM STAT PRN; Protocol PRN Reason: Hypoglycemia Protocol Guaifenesin (Robitussin) 200 mg PO Q4H PRN PRN Reason: Cough and congestion Last Admin: 06/27/18 04:11 Dose: 200 mg Imipenem/Cilastatin Sodium 500 (mg/ Sodium Chloride) 100 mls @ 100 mls/hr IVPB Q12H [facility]; Protocol Last Admin: 06/29/18 06:01 Dose: 100 mls/hr Sodium Chloride (Sodium Chloride 0.9%) 500 mls @ 50 mls/hr IV .Q10H [facility] Last Admin: 06/29/18 05:30 Dose: Not Given Insulin Human Regular (Novolin R) 0 unit SC ACHS [facility]; Protocol Last Admin: 06/29/18 08:05 Dose: 4 u Methylprednisolone (Solu-Medrol) 20 mg IVP Q8H [facility] Last Admin: 06/29/18 03:45 Dose: 20 mg Pantoprazole Sodium (Protonix Ec Tab) 40 mg PO DAILY [facility] Last Admin: 06/28/18 10:07 Dose: 40 mg Sodium Bicarbonate (Sodium Bicarbonate Tab) 650 mg PO BID [facility] Last Admin: 06/28/18 17:01 Dose: 650 mg - Labs Labs: 06/29/18 07:37 06/29/18 07:00 - Constitutional Appears: Non-toxic, No Acute Distress - Head Exam Head Exam: ATRAUMATIC, NORMOCEPHALIC - Eye Exam Eye Exam: Normal appearance - ENT Exam ENT Exam: Mucous Membranes Moist - Respiratory Exam Respiratory Exam: Decreased Breath Sounds (bases b/l), NORMAL BREATHING PATTERN. absent: Accessory Muscle Use, Rales, Rhonchi, Wheezes, Respiratory Distress - Cardiovascular Exam Cardiovascular Exam: REGULAR RHYTHM, +S1, +S2 - GI/Abdominal Exam GI & Abdominal Exam: Soft. absent: Distended, Firm, Guarding, Rigid, Tenderness - Extremities Exam Extremities Exam: absent: Pedal Edema Assessment and Plan (1) Bronchiectasis Assessment & Plan: Afebrile Cough improved continue antibiotics patient stable from pulmonlogly standpoint. Status: Acute (2) ILD (interstitial lung disease) Status: Acute (3) COPD (chronic obstructive pulmonary disease) Status: Acute
== END 2018-06-29 17:34 | disposition home or self-care (01) | DRG 196 ==
LOC: C.ER 14:44 → C.3T 16:16
PROVIDERS: ADMIT Internal Medicine; ATTEND Internal Medicine
DX: J84.10 Pulmonary fibrosis, unspecified (principal); J18.9 Pneumonia, unspecified organism; J44.0 Chronic obstructive pulmonary disease with (acute) lower respiratory infection; J44.1 Chronic obstructive pulmonary disease with (acute) exacerbation; N17.9 Acute kidney failure, unspecified; N18.4 Chronic kidney disease, stage 4 (severe); B96.5 Pseudomonas (aeruginosa) (mallei) (pseudomallei) as the cause of diseases classified elsewhere; E11.22 Type 2 diabetes mellitus with diabetic chronic kidney disease; E78.5 Hyperlipidemia, unspecified; E86.0 Dehydration; I12.9 Hypertensive chronic kidney disease with stage 1 through stage 4 chronic kidney disease, or unspecified chronic kidney disease; Z87.891 Personal history of nicotine dependence; R09.89 Other specified symptoms and signs involving the circulatory and respiratory systems; D63.1 Anemia in chronic kidney disease; E87.5 Hyperkalemia; E11.21 Type 2 diabetes mellitus with diabetic nephropathy; D47.2 Monoclonal gammopathy; Z87.01 Personal history of pneumonia (recurrent); Z87.442 Personal history of urinary calculi

== ENCOUNTER 2018-07-25 08:52 | Inpatient (IN) | payer MEDICARE ==
[2018-07-25 08:53] VITALS: BMI 18.1
[2018-07-25] MEDS ORDERED: Albuterol 0.083% Inhal Sol (2.5 mg/3 mL) UD IH STA (11:00)
--- NOTE | 2018-07-25 11:01 | C.PDOC ---
History Of Present Illness Patient presents to ED for evaluation, was told by his finisher brush Dr. Dutton that his kidney function has been worsening and he needs to start hemodialysis. Patient does not have access yet for dialysis. He denies chest pain, SOB, fever, vomiting, diarrhea, palpitations. He does admit to chronic nonproductive cough and mild abdominal pain. PMHx - CKD (Stage IV) COPD, HTN, pneumonia, hyperlidepimia Time Seen by Provider: 07/25/18 09:10 Chief Complaint (Nursing): Medical Clearance History Per: Patient, Other (Dr. Dutton) History/Exam Limitations: no limitations Past Medical History Reviewed: Historical Data, Nursing Documentation, Vital Signs Vital Signs: Last Vital Signs Temp 98.6 F 07/25/18 09:09 Pulse 93 H 07/25/18 09:09 Resp 17 07/25/18 09:09 BP 142/64 07/25/18 09:09 Pulse Ox 95 07/25/18 09:09 - Medical History PMH: Arthritis, Bronchitis, COPD, HTN, Hyperlipidemia, Pneumonia, End Stage Renal Disease, Chronic Kidney Disease - [facility] Procedures EXCISION OF PELVIC SUBCU/FASCIA, OPEN APPROACH (09/06/17) SUPPLEMENT L INGUINAL REGION WITH SYNTH SUB, OPEN APPROACH (09/06/17) Family History: States: No Known Family Hx - Social History Hx Alcohol Use: No Hx Substance Use: No - Immunization History Hx Tetanus Toxoid Vaccination: No Hx Influenza Vaccination: Yes Hx Pneumococcal Vaccination: Yes Review Of Systems Constitutional: Negative for: Fever, Chills Cardiovascular: Negative for: Chest Pain, Palpitations Respiratory: Positive for: Cough. Negative for: Shortness of Breath Gastrointestinal: Negative for: Nausea, Vomiting, Abdominal Pain, Diarrhea Genitourinary: Negative for: Dysuria Skin: Negative for: Rash Physical Exam - Physical Exam Appears: Well, Non-toxic, No Acute Distress Skin: Normal Color, Warm, Dry, No Rash Oral Mucosa: Moist Cardiovascular: Rhythm Regular Respiratory: No Accessory Muscle Use, No Rales, No Rhonchi, Wheezing (scattered expiratory wheezing B/L ) Gastrointestinal/Abdominal: Bowel Sounds, Soft, Tenderness (mild diffuse TTP, (- ) Abraham's, (-) McBurney's), No Guarding, No Rebound Back: CVA Tenderness Extremity: Normal ROM, No Calf Tenderness Pulses: Left Dorsalis Pedis: Normal, Right Dorsalis Pedis: Normal Neurological/Psych: Oriented x3 ED Course And Treatment - Laboratory Results Result Diagrams: 08/06/18 07:55 08/06/18 07:55 ECG: Interpreted By Me, Viewed By Me (NSR 98 bpm, L axis deviation, poor R wave progression, no acute ST/T wave changes) ECG Interpretation: Abnormal O2 Sat by Pulse Oximetry: 95 (RA) Pulse Ox Interpretation: Normal Progress Note: Blood work, EKG ordered and reviewed. Discussed patient with Dr. Dutton, patient will need admission for dialysis access and start of hemodialysis. Dr. Dejesus spoken with and aware. - Physician Consult Information Physician Contacted: Sabino Dias Outcome Of Conversation: Discussed patient with hospitalist, agrees with admission to her service for CKD needing hemodialysis. Disposition - Disposition Disposition: HOSPITALIZED Disposition Time: 12:22 Condition: STABLE - Clinical Impression Clinical Impression: CKD (chronic kidney disease), ESRD needing dialysis Decision To Admit - Pt Status Changed To: Hospital Disposition Of: Inpatient - Admit Certification Admit to Inpatient:: After my assessment, the patient will require hospitalization for at least two midnights. This is because of the severity of symptoms shown, intensity of services needed, and/or the medical risk in this patient being treated as an outpatient. - InPatient: Physician Admission Certification: I certify that this patient requires 2 or mo re midnights of care for the following reason:: see notes - . Bed Request Type: Regular Admitting Physician: Sabino Dias Patient Diagnosis: CKD (chronic kidney disease), ESRD needing dialysis
[2018-07-25] MEDS ORDERED: Albuterol 0.083% Inhal Sol (2.5 mg/3 mL) UD ONE (11:20)
[2018-07-25 11:31] LABS: BASO # 0.1 K/uL (0.0-0.2); BASO % 0.6 % (0.0-2.0); EOS # 0.2 K/uL (0.0-0.7); HEMOGLOBIN 9.3 g/dL (12.0-18.0); LYMPH # 0.5 K/uL (1.0-4.3); LYMPH % 6.8 % (20.0-40.0); MEAN CORPUSCULAR HEMOGLOBIN 32.5 pg (27.0-31.0); MEAN CORPUSCULAR HGB CONC 33.8 g/dL (33.0-37.0); MEAN PLATELET VOLUME 6.9 fL (7.2-11.7); MONO # 0.6 K/uL (0.0-0.8); MONO % 8.1 % (0.0-10.0); NEUT # 6.6 K/uL (1.8-7.0); NEUT % 82.5 % (50.0-75.0); RBC 2.86 Mil/uL (4.40-5.90); RED CELL DISTRIBUTION WIDTH 16.4 % (11.5-14.5)
[2018-07-25 11:33] LABS: MEAN CELL VOLUME 96.3 fL (80.0-94.0); PLATELET COUNT 390 K/uL (130-400)
[2018-07-25 11:40] LABS: INR 1.3; PROTHROMBIN TIME 14.4 SECONDS (9.7-12.2)
[2018-07-25 11:44] LABS: ALB/GLOB RATIO 1.1 (1.0-2.1); ALBUMIN 3.9 g/dL (3.5-5.0); CALCIUM 9.3 mg/dl (8.6-10.4)
[2018-07-25 11:51] LABS: CK-MB 2.69 ng/mL (0.0-3.38)
[2018-07-25 12:02] LABS: LYMPHOCYTE 6 % (20-40); MONOCYTE 6 % (0-10); NEUTROPHIL 88 % (50-75); PLATELET ESTIMATE NORMAL (NORMAL); TOTAL CELLS COUNTED 100
[2018-07-25 12:03] LABS: ANISOCYTOSIS SLIGHT; HYPOCHROMIC SLIGHT; POIKILOCYTOSIS SLIGHT; TEARDROP CELLS SLIGHT
--- NOTE | 2018-07-25 12:58 | CP.PCM.CON ---
History of Present Illness - History of Present Illness History of Present Illness: Patient is a 82 year old male with a past medical history of COPD, hypertension, CKD and diabetes presenting to the emergency room with a complaint of shortness of breath, progressive weight loss, advancing renal failure. s/p recent a dmission for pneumonia and has noted to have worsening CKD.The patient has been taking all of his COPD medications as directed, son states he uses nebulizers nearly every day, but is still having progressive short of breath. He does not use oxygen at home. Patient denies nausea, vomiting, diarrhea, constipation, chest pain, abdominal pain, urinary symptoms, headaches, blurry vision, numbness or tingling. Creat increased to 4.1, baseline around 2.5. PMHx: HTN, HLD, DM 2, CKD Stage 4-5, COPD and pulmonary fibrosis, anemia PSHx: R inguinal hernia repair x2, kidney stone removal Allergies: ASA ("stomach hurts" Social Hx: +former smoker, quit at age 42, 1-2ppd. No alcohol or illicit drug use Family Hx: noncontributory, no CKD hx Review of Systems - Constitutional Constitutional: Fatigue, Malaise, Weight Loss, Weakness - EENT Eyes: absent: As Per HPI, Blind Spots, Blurred Vision, Change in Vision, Decreased Night Vision, Diplopia, Discharge, Dry Eye, Exophthalmos, Floaters, Irritation, Itchy Eyes, Loss of Peripheral Vision, Pain, Photophobia, Requires Corrective Lenses, Sees Flashes, Spots in Vision, Tunnel Vision, Other Visual Disturbances, Loss of Vision, Other Ears: absent: As Per HPI, Decreased Hearing, Ear Discharge, Ear Pain, Tinnitus, Abnormal Hearing, Disequilibrium, Dizziness, Other Nose/Mouth/Throat: absent: As Per HPI, Epistaxis, Nasal Congestion, Nasal Discharge, Nasal Obstruction, Nasal Trauma, Nose Pain, Post Nasal Drip, Sinus Pain, Sinus Pressure, Bleeding Gums, Change in Voice, Dental Pain, Dry Mouth, Dysphagia, Halitosis, Hoarsness, Lip Swelling, Mouth Lesions, Mouth Pain, Odynophagia, Sore Throat, Throat Swelling, Tongue Swelling, Facial Pain, Neck Pain, Neck Mass, Other - Cardiovascular Cardiovascular: Dyspnea on Exertion, Orthopnea - Respiratory Respiratory: Cough, Dyspnea on Exertion - Gastrointestinal Gastrointestinal: Early Satiety, Nausea - Genitourinary Genitourinary: As Per HPI - Musculoskeletal Musculoskeletal: Muscle Weakness, Myalgias - Neurological Neurological: Weakness Past Patient History - Infectious Disease Hx of Infectious Diseases: None - Past Medical History & Family History Past Medical History?: Yes Past Family History: Reviewed and not pertinent - Past Social History Smoking Status: Former Smoker Chewing Tobacco Use: No Cigar Use: No Alcohol: Occasional Drugs: Denies Home Situation {Lives}: With Family - CARDIAC Hx Hypertension: Yes - PULMONARY Hx Bronchitis: Yes Hx Chronic Obstructive Pulmonary Disease (COPD): Yes Hx Pneumonia: Yes - HEENT Other/Comment: wears glasses - RENAL Hx Chronic Kidney Disease: Yes - ENDOCRINE/METABOLIC Hx Endocrine Disorders: Yes Hx Diabetes Mellitus Type 2: Yes - HEMATOLOGICAL/ONCOLOGICAL Hx Blood Disorders: Yes Hx Blood Transfusions: Yes - MUSCULOSKELETAL/RHEUMATOLOGICAL Hx Arthritis: Yes - GASTROINTESTINAL Hx Gastrointestinal Disorders: Yes Other/Comment: HERNIA - PSYCHIATRIC Hx Substance Use: No - SURGICAL HISTORY Hx Surgeries: Yes Hx Herniorrhaphy: Yes (RIGHT INGUINAL) - ANESTHESIA Hx Anesthesia: Yes Hx Anesthesia Reactions: No Hx Malignant Hyperthermia: No Meds Allergies/Adverse Reactions: Allergies Allergy/AdvReac Type Severity Reaction Status Date / Time aspirin Allergy Severe PAIN Verified 07/25/18 09:13 Physical Exam - Constitutional Appears: Cachectic, Chronically Ill - Head Exam Head Exam: ATRAUMATIC, NORMAL INSPECTION - Eye Exam Eye Exam: EOMI, Normal appearance - Neck Exam Neck exam: Positive for: Normal Inspection. Negative for: Tenderness - Respiratory Exam Respiratory Exam: Rhonchi, Respiratory Distress - Cardiovascular Exam Cardiovascular Exam: REGULAR RHYTHM, +S1 - GI/Abdominal Exam GI & Abdominal Exam: Soft. absent: Tenderness - Extremities Exam Extremities exam: Positive for: normal inspection. Negative for: tenderness - Neurological Exam Neurological exam: Altered, CN II-XII Intact - Skin Skin Exam: Dry, Warm Results - Vital Signs Recent Vital Signs: Last Vital Signs Temp 98.6 F 07/25/18 09:09 Pulse 93 H 07/25/18 09:09 Resp 17 07/25/18 09:09 BP 142/64 07/25/18 09:09 Pulse Ox 95 07/25/18 11:03 - Labs Result Diagrams: 07/25/18 11:22 07/25/18 11:22 Labs: Laboratory Results - last 24 hr 01/28/19 01/28/19 01/28/19 11:22 11:22 11:22 WBC 8.0 RBC 2.86 L Hgb 9.3 L Hct 27.6 L MCV 96.3 H D MCH 32.5 H MCHC 33.8 RDW 16.4 H Plt Count 390 D MPV 6.9 L Neut % (Auto) 82.5 H Lymph % (Auto) 6.8 L [place] % (Auto) 8.1 Eos % (Auto) 2.0 Baso % (Auto) 0.6 Neut # (Auto) 6.6 Lymph # (Auto) 0.5 L [place] # (Auto) 0.6 Eos # (Auto) 0.2 Baso # (Auto) 0.1 Neutrophils % (Manual) 88 H Lymphocytes % (Manual) 6 L Monocytes % (Manual) 6 Platelet Estimate Normal Hypochromasia (manual) Slight Poikilocytosis (manual Slight Anisocytosis (manual) Slight Tear Drop Cells Slight PT 14.4 H INR 1.3 APTT 39 H Sodium 140 Potassium 4.5 Chloride 105 Carbon Dioxide 24 Anion Gap 16 BUN 65 H Creatinine 4.1 H Est GFR ( Amer) 17 Est GFR (Non-Af Amer) 14 Random Glucose 296 H D Calcium 9.3 Total Bilirubin 0.5 AST 20 ALT 9 L D Alkaline Phosphatase 72 Total Creatine Kinase 70 CK-MB (Mass) 2.69 Total Protein 7.4 Albumin 3.9 Globulin 3.5 Albumin/Globulin Ratio 1.1 Assessment & Plan (1) CKD (chronic kidney disease) stage 5, GFR less than 15 ml/min Status: Acute (2) CKD stage 5 secondary to hypertension Status: Acute (3) Pulmonary fibrosis Status: Acute (4) COPD exacerbation Status: Acute - Assessment and Plan (Free Text) Plan: Due to progressive renal failure, profound weight loss will make arrangements for dialysis surgery called for dialysis cath 'Will need AV access Dialysis plans explained to patient and son
--- NOTE | 2018-07-25 13:54 | CP.PCM.HP ---
<Reyna WoodsonUmberto - Last Filed: 07/27/18 07:00> History of Present Illness - History of Present Illness History of Present Illness: CC: worsening kidney function, needs dialysis Patient is an 82 year old male with PMHx of COPD, HTN, ESRD, anemia, and DMII who presents today for worsening kidney function, weight loss, and shortness of breath. Patient says he is compliant with his medications. Patient denies any chest pain, abdominal pain, nausea, vomiting, constipation, or diarrhea. Patient last had anything to eat or drink at 7am. PMHx: HTN, HLD, DM, ESRD, COPD, anemia PSHx: R inguinal hernia repair x2 2018 and 2014 Allergies: ASA --"stomach hurts" Social Hx: +former smoker, quit at age 42, 1-2ppd for 20 years. 1 beer occasionally, no drug use Family Hx: Father from bone cancer at age 60, Mother of uterine cancer in her 60s. PMD: Dr. Miranda Pulmonary: Dr. Chevy Cruz Nephro: Dr. Dutton Heme: Dr. Lobato Present on Admission - Present on Admission Any Indicators Present on Admission: No History of DVT/PE: No History of Uncontrolled Diabetes: No Urinary Catheter: No Decubitus Ulcer Present: No Review of Systems - Constitutional Constitutional: Weight Loss - Cardiovascular Cardiovascular: Dyspnea. absent: Chest Pain - Respiratory Respiratory: Cough, Dyspnea - Gastrointestinal Gastrointestinal: absent: Abdominal Pain, Constipation, Diarrhea, Nausea, Vomiting - Genitourinary Genitourinary: absent: Dysuria Past Patient History - Infectious Disease Hx of Infectious Diseases: None - Past Medical History & Family History Past Medical History?: Yes Past Family History: Reviewed and not pertinent - Past Social History Smoking Status: Former Smoker Chewing Tobacco Use: No Cigar Use: No Alcohol: Occasional Drugs: Denies Home Situation {Lives}: With Family - CARDIAC Hx Hypertension: Yes - PULMONARY Hx Bronchitis: Yes Hx Chronic Obstructive Pulmonary Disease (COPD): Yes Hx Pneumonia: Yes - HEENT Other/Comment: wears glasses - RENAL Hx Chronic Kidney Disease: Yes - ENDOCRINE/METABOLIC Hx Endocrine Disorders: Yes Hx Diabetes Mellitus Type 2: Yes - HEMATOLOGICAL/ONCOLOGICAL Hx Blood Disorders: Yes Hx Blood Transfusions: Yes - MUSCULOSKELETAL/RHEUMATOLOGICAL Hx Arthritis: Yes - GASTROINTESTINAL Hx Gastrointestinal Disorders: Yes Other/Comment: HERNIA - PSYCHIATRIC Hx Substance Use: No - SURGICAL HISTORY Hx Surgeries: Yes Hx Herniorrhaphy: Yes (RIGHT INGUINAL) - ANESTHESIA Hx Anesthesia: Yes Hx Anesthesia Reactions: No Hx Malignant Hyperthermia: No Meds Allergies/Adverse Reactions: Allergies Allergy/AdvReac Type Severity Reaction Status Date / Time aspirin Allergy Severe PAIN Verified 07/25/18 09:13 Physical Exam - Constitutional Appears: Non-toxic, No Acute Distress - Head Exam Head Exam: ATRAUMATIC, NORMAL INSPECTION, NORMOCEPHALIC - Eye Exam Eye Exam: EOMI, Normal appearance - ENT Exam ENT Exam: Mucous Membranes Moist - Respiratory Exam Respiratory Exam: Rales, NORMAL BREATHING PATTERN - Cardiovascular Exam Cardiovascular Exam: REGULAR RHYTHM, RRR - GI/Abdominal Exam GI & Abdominal Exam: Normal Bowel Sounds, Soft. absent: Tenderness - Rectal Exam Rectal Exam: NORMAL INSPECTION - Extremities Exam Extremities exam: Positive for: normal inspection. Negative for: pedal edema, t enderness - Neurological Exam Neurological exam: Alert, CN II-XII Intact, Oriented x3 - Psychiatric Exam Psychiatric exam: Normal Affect, Normal Mood - Skin Skin Exam: Intact, Normal Color, Warm Results - Vital Signs Recent Vital Signs: Last Vital Signs Temp 98.6 F 07/25/18 09:09 Pulse 93 H 07/25/18 09:09 Resp 17 07/25/18 09:09 BP 142/64 07/25/18 09:09 Pulse Ox 95 07/25/18 11:03 - Labs Result Diagrams: 07/26/18 06:32 07/26/18 06:32 Labs: Laboratory Results - last 24 hr 07/25/18 07/25/18 07/25/18 11:22 11:22 11:22 WBC 8.0 RBC 2.86 L Hgb 9.3 L Hct 27.6 L MCV 96.3 H D MCH 32.5 H MCHC 33.8 RDW 16.4 H Plt Count 390 D MPV 6.9 L Neut % (Auto) 82.5 H Lymph % (Auto) 6.8 L [place] % (Auto) 8.1 Eos % (Auto) 2.0 Baso % (Auto) 0.6 Neut # (Auto) 6.6 Lymph # (Auto) 0.5 L [place] # (Auto) 0.6 Eos # (Auto) 0.2 Baso # (Auto) 0.1 Neutrophils % (Manual) 88 H Lymphocytes % (Manual) 6 L Monocytes % (Manual) 6 Platelet Estimate Normal Hypochromasia (manual) Slight Poikilocytosis (manual Slight Anisocytosis (manual) Slight Tear Drop Cells Slight PT 14.4 H INR 1.3 APTT 39 H Sodium 140 Potassium 4.5 Chloride 105 Carbon Dioxide 24 Anion Gap 16 BUN 65 H Creatinine 4.1 H Est GFR ( Amer) 17 Est GFR (Non-Af Amer) 14 Random Glucose 296 H D Calcium 9.3 Total Bilirubin 0.5 AST 20 ALT 9 L D Alkaline Phosphatase 72 Total Creatine Kinase 70 CK-MB (Mass) 2.69 Total Protein 7.4 Albumin 3.9 Globulin 3.5 Albumin/Globulin Ratio 1.1 Blood Type Antibody Screen 07/25/18 11:22 WBC RBC Hgb Hct MCV MCH MCHC RDW Plt Count MPV Neut % (Auto) Lymph % (Auto) [place] % (Auto) Eos % (Auto) Baso % (Auto) Neut # (Auto) Lymph # (Auto) [place] # (Auto) Eos # (Auto) Baso # (Auto) Neutrophils % (Manual) Lymphocytes % (Manual) Monocytes % (Manual) Platelet Estimate Hypochromasia (manual) Poikilocytosis (manual Anisocytosis (manual) Tear Drop Cells PT INR APTT Sodium Potassium Chloride Carbon Dioxide Anion Gap BUN Creatinine Est GFR ( Amer) Est GFR (Non-Af Amer) Random Glucose Calcium Total Bilirubin AST ALT Alkaline Phosphatase Total Creatine Kinase CK-MB (Mass) Total Protein Albumin Globulin Albumin/Globulin Ratio Blood Type O POSITIVE Antibody Screen Negative Assessment & Plan - Assessment and Plan (Free Text) Assessment: CKD Stage 5 BUN/Cr: 65/41. GFR: 14 Dr. Dejesus consulted for dialysis access, help appreciated Dr. Dutton consulted, help appreciated f/u hepatitis panel Calcitriol .25mcg po daily Folic acid 1mg po daily Lasix 40mg po daily DMII HgA1C: 9.3 hold glimepiride Accuchecks ISS hypoglycemia protocol HTN Amlodipine 10mg po daily HLD Simvastatin NF Crestor 5mg po HS COPD Duonebs q4h prn Prophylaxis SCDs Protonix 40mg po daily renal low carb diet Discussed with Dr. Dias <Sabino Dias - Last Filed: 07/28/18 16:39> Results - Vital Signs Recent Vital Signs: Last Vital Signs Temp 98.4 F 07/28/18 07:40 Pulse 88 07/28/18 07:40 Resp 20 07/28/18 07:40 BP 147/71 07/28/18 09:29 Pulse Ox 96 07/28/18 07:40 - Labs Result Diagrams: 07/28/18 07:18 07/28/18 07:18 Labs: Laboratory Results - last 24 hr 07/27/18 07/28/18 07/28/18 21:13 06:49 07:18 WBC RBC Hgb Hct MCV MCH MCHC RDW Plt Count MPV Sodium 137 Potassium 4.2 Chloride 98 Carbon Dioxide 34 H Anion Gap 8 L BUN 37 H Creatinine 2.3 H Est GFR ( Amer) 33 Est GFR (Non-Af Amer) 27 POC Glucose (mg/dL) 331 H 153 H Random Glucose 141 H D Calcium 8.7 Phosphorus 3.6 Magnesium 1.7 Total Bilirubin 0.3 AST 20 ALT 10 L D Alkaline Phosphatase 67 Total Protein 6.1 L Albumin 3.3 L Globulin 2.9 Albumin/Globulin Ratio 1.1 07/28/18 07/28/18 07:18 10:56 WBC 15.4 H D RBC 2.90 L Hgb 9.0 L Hct 27.6 L MCV 95.1 H MCH 31.1 H MCHC 32.7 L RDW 16.9 H Plt Count 173 MPV 6.9 L Sodium Potassium Chloride Carbon Dioxide Anion Gap BUN Creatinine Est GFR ( Amer) Est GFR (Non-Af Amer) POC Glucose (mg/dL) 361 H Random Glucose Calcium Phosphorus Magnesium Total Bilirubin AST ALT Alkaline Phosphatase Total Protein Albumin Globulin Albumin/Globulin Ratio Attending/Attestation - Attestation I have personally seen and examined this patient.: Yes I have fully participated in the care of the patient.: Yes I have reviewed all pertinent clinical information: Yes Notes (Text): seen and examined by me. Patient was sent from his [facility]. Patient was note eating well due to poor appetie,loosing weight and complaining of shortness of breath. He was brought in to initiate dialysis.On examination ,mild sob,has cough ,lungs few rales 1.ESRD-worsening creatinine,need dialysis mild sob with bilateral rales likely due to fluid overload 2.COPD-stable 3.DM 4.s/p Perm a cath placement we will follow with [facility]
--- NOTE | 2018-07-25 14:01 | CP.PCM.CON ---
History of Present Illness - History of Present Illness History of Present Illness: Vascular Surgery Consult note. Dr. Dejesus 82yo M w PMHx of COPD, ESRD, HTN, Anemia, DM here for worsening creatinine and in need for HD. Patient denies any complaints at this time. No Fevers or chills. No Chest pain, SOB. No N/V/D. No Abd pain. Last ate cereal at 7:30 in the morning. Has not had HD in the past. Dr. Dutton, Nephrology, requests Permacath for HD now. PMHx: HTN, COPD, ESRD, Anemia, DM PSHx: B/l inguinal hernia repair Social Hx: Former tobacco use; Occasional ETOH use; No illicit drugs Family Hx: non-contributory Allergy: ASA Review of Systems - Review of Systems All systems: reviewed and no additional remarkable complaints except - Constitutional Constitutional: As Per HPI Past Patient History - Infectious Disease Hx of Infectious Diseases: None - Past Medical History & Family History Past Medical History?: Yes Past Family History: Reviewed and not pertinent - Past Social History Smoking Status: Former Smoker Chewing Tobacco Use: No Cigar Use: No Alcohol: Occasional Drugs: Denies Home Situation {Lives}: With Family - CARDIAC Hx Hypertension: Yes - PULMONARY Hx Bronchitis: Yes Hx Chronic Obstructive Pulmonary Disease (COPD): Yes Hx Pneumonia: Yes - HEENT Other/Comment: wears glasses - RENAL Hx Chronic Kidney Disease: Yes - ENDOCRINE/METABOLIC Hx Endocrine Disorders: Yes Hx Diabetes Mellitus Type 2: Yes - HEMATOLOGICAL/ONCOLOGICAL Hx Blood Disorders: Yes Hx Blood Transfusions: Yes - MUSCULOSKELETAL/RHEUMATOLOGICAL Hx Arthritis: Yes - GASTROINTESTINAL Hx Gastrointestinal Disorders: Yes Other/Comment: HERNIA - PSYCHIATRIC Hx Substance Use: No - SURGICAL HISTORY Hx Surgeries: Yes Hx Herniorrhaphy: Yes (RIGHT INGUINAL) - ANESTHESIA Hx Anesthesia: Yes Hx Anesthesia Reactions: No Hx Malignant Hyperthermia: No Meds Allergies/Adverse Reactions: Allergies Allergy/AdvReac Type Severity Reaction Status Date / Time aspirin Allergy Severe PAIN Verified 07/25/18 09:13 Physical Exam - Constitutional Appears: Well, Non-toxic, No Acute Distress - Head Exam Head Exam: ATRAUMATIC, NORMAL INSPECTION, NORMOCEPHALIC - Eye Exam Eye Exam: EOMI, Normal appearance. absent: Scleral icterus - ENT Exam ENT Exam: Mucous Membranes Moist - Respiratory Exam Respiratory Exam: NORMAL BREATHING PATTERN. absent: Accessory Muscle Use, Respiratory Distress - Cardiovascular Exam Cardiovascular Exam: RRR. absent: JVD - GI/Abdominal Exam GI & Abdominal Exam: Soft. absent: Distended, Guarding, Rebound, Rigid, Tenderness - Extremities Exam Extremities exam: Positive for: normal inspection. Negative for: calf tenderness - Back Exam Back exam: NORMAL INSPECTION - Neurological Exam Neurological exam: Alert, Oriented x3 - Psychiatric Exam Psychiatric exam: Normal Affect, Normal Mood - Skin Skin Exam: Dry, Intact, Normal Color, Warm Results - Vital Signs Recent Vital Signs: Last Vital Signs Temp 98.6 F 07/25/18 09:09 Pulse 93 H 07/25/18 09:09 Resp 17 07/25/18 09:09 BP 142/64 07/25/18 09:09 Pulse Ox 95 07/25/18 11:03 - Labs Result Diagrams: 07/25/18 11:22 07/25/18 11:22 Labs: Laboratory Results - last 24 hr 07/25/18 07/25/18 07/25/18 11:22 11:22 11:22 WBC 8.0 RBC 2.86 L Hgb 9.3 L Hct 27.6 L MCV 96.3 H D MCH 32.5 H MCHC 33.8 RDW 16.4 H Plt Count 390 D MPV 6.9 L Neut % (Auto) 82.5 H Lymph % (Auto) 6.8 L [place] % (Auto) 8.1 Eos % (Auto) 2.0 Baso % (Auto) 0.6 Neut # (Auto) 6.6 Lymph # (Auto) 0.5 L [place] # (Auto) 0.6 Eos # (Auto) 0.2 Baso # (Auto) 0.1 Neutrophils % (Manual) 88 H Lymphocytes % (Manual) 6 L Monocytes % (Manual) 6 Platelet Estimate Normal Hypochromasia (manual) Slight Poikilocytosis (manual Slight Anisocytosis (manual) Slight Tear Drop Cells Slight PT 14.4 H INR 1.3 APTT 39 H Sodium 140 Potassium 4.5 Chloride 105 Carbon Dioxide 24 Anion Gap 16 BUN 65 H Creatinine 4.1 H Est GFR ( Amer) 17 Est GFR (Non-Af Amer) 14 Random Glucose 296 H D Calcium 9.3 Phosphorus Total Bilirubin 0.5 AST 20 ALT 9 L D Alkaline Phosphatase 72 Total Creatine Kinase 70 CK-MB (Mass) 2.69 Total Protein 7.4 Albumin 3.9 Globulin 3.5 Albumin/Globulin Ratio 1.1 Blood Type Antibody Screen 07/25/18 07/25/18 11:22 13:25 WBC RBC Hgb Hct MCV MCH MCHC RDW Plt Count MPV Neut % (Auto) Lymph % (Auto) [place] % (Auto) Eos % (Auto) Baso % (Auto) Neut # (Auto) Lymph # (Auto) [place] # (Auto) Eos # (Auto) Baso # (Auto) Neutrophils % (Manual) Lymphocytes % (Manual) Monocytes % (Manual) Platelet Estimate Hypochromasia (manual) Poikilocytosis (manual Anisocytosis (manual) Tear Drop Cells PT INR APTT Sodium Potassium Chloride Carbon Dioxide Anion Gap BUN Creatinine Est GFR ( Amer) Est GFR (Non-Af Amer) Random Glucose Calcium Phosphorus 4.1 Total Bilirubin AST ALT Alkaline Phosphatase Total Creatine Kinase CK-MB (Mass) Total Protein Albumin Globulin Albumin/Globulin Ratio Blood Type O POSITIVE Antibody Screen Negative Assessment & Plan - Assessment and Plan (Free Text) Assessment: 82yo M w ESRD in need to initiate HD. Vascular Surgery consulted for access Plan: - Will Plan for OR today for permacath - May consider PD catherter placement during this admission - NPO - f/u labs Further recs as per Dr. Oleg Guerra PGY2 surgery
[2018-07-25] MEDS ORDERED: Glucagon Recombinant 1 mg Inj IM PRN (14:02)
[2018-07-25] MEDS ORDERED: Dextrose 50% SYRINGE Inj (50 ml) IV PRN (14:02)
[2018-07-25 14:25] LABS: HEPATITIS B SURFACE AG Negative (NEGATIVE)
[2018-07-25 14:30] LABS: HEPATITIS B CORE AB NEGATIVE (NEGATIVE)
[2018-07-25 14:42] LABS: HEPATITIS C ANTIBODY NEGATIVE (NEGATIVE)
[2018-07-25] MEDS ORDERED: Midazolam 2 MG/2 ML VIAL ONE (14:47)
[2018-07-25] MEDS ORDERED: HEPARIN-NS 5,000 UNITS/500 ML 5,000 UNIT/500 ML BAG IV ONE (14:55)
[2018-07-25] MEDS ORDERED: Lidocaine Hydrochloride 0 ML INJ ONE (14:55)
[2018-07-25] MEDS ORDERED: ceFAZolin 1 gm in NS 1 GM/100 ML BAG IVPB ONE (14:58)
[2018-07-25] MEDS ORDERED: Lidocaine Hydrochloride 15 ML INJ ONE (15:24)
--- NOTE | 2018-07-25 15:40 | PCM.SURG1 ---
Surgeon's Initial Post Op Note - Surgeon's Notes Surgeon: Dr. Dejesus Car Sealer: Mari PGY2 Type of Anesthesia: IV Sedation, Local Anesthesia Administered By: Dr. Waller Pre-Operative Diagnosis: End Stage Renal Disease Operative Findings: See operative report Post-Operative Diagnosis: same Operation Performed: Right IJ Permacath Placement Specimen/Specimens Removed: none Estimated Blood Loss: EBL {In ML}: 10 Blood Products Given: N/A Drains Used: No Drains Post-Op Condition: Good Date of Surgery/Procedure: 07/25/18 Time of Surgery/Procedure: 15:41
[2018-07-25] MEDS ORDERED: ACETAMINOPHEN IV ONE (16:33)
[2018-07-25] MEDS ORDERED: PREMIXED IV ONE (16:33)
[2018-07-25] MEDS ORDERED: Acetaminophen IV 1,000 MG in Premixed IV 1 EA IV ONE (16:43)
--- NOTE | 2018-07-25 17:19 | RAD ---
Date of service: 07/25/2018 PROCEDURE: Intraoperative Fluoroscopy. HISTORY: RENAL FAILURE FINDINGS: Fluoroscopic assistance was provided for PermCath placement. Please refer to the operative report from ARETHA Hinds. Total fluoroscopic time (continuous mode) utilized during the procedure 16.1 seconds. Total exam DLP: 1.16 (mGy).
--- NOTE | 2018-07-25 17:24 | RAD ---
Date of service: 07/25/2018 HISTORY: s/p RIJ Permacath placement COMPARISON: 06/20/2018. FINDINGS: LUNGS: Increasing consolidative changes changes basilar distribution. PLEURA: No significant pleural effusion identified, no pneumothorax apparent. CARDIOVASCULAR: Atherosclerotic calcifications identified primarily aortic arch. Venous access catheter in satisfactory position. No radiographic findings to suggest acute or significant cardiovascular disease. OSSEOUS STRUCTURES: No significant abnormalities. VISUALIZED UPPER ABDOMEN: Normal. OTHER FINDINGS: None. IMPRESSION: Satisfactory position of recently placed PermCath catheter. No pneumothorax. More pronounced infiltrates at both lung bases.
--- NOTE | 2018-07-26 02:22 | OP ---
PROCEDURE DATE: 07/25/2018 PREOPERATIVE DIAGNOSIS: Renal failure. POSTOPERATIVE DIAGNOSIS: Renal failure. PROCEDURES CARRIED OUT: Placement of Perm-A-cath in the right jugular vein with C-arm fluoroscopy, ultrasound-guided puncture, and micropuncture technique. SURGEON: Artis Dejesus Jr., MD SAFETY DEPOSIT CLERK: Panda Guerra DO ANESTHESIOLOGIST: Ms. Oconnor INDICATION: The patient is an 82-year-old male, presented to the emergency room, needing urgent dialysis. OPERATIVE FINDINGS: Catheter was inserted uneventfully via the jugular vein. DESCRIPTION OF PROCEDURE: The patient was given local anesthesia as well as intravenous sedation and intravenous antibiotics. Using micropuncture technique and ultrasound guidance, the right jugular vein was punctured. Under fluoroscopic control, the guidewire was advanced centrally. This was exchanged for an 0.035 wire, which was placed in the inferior vena cava. A sheath dilator was then passed over this, and then the catheter was positioned with the tip in the superior vena cava of the right atrial junction. It was flushed with heparinized saline with good return. Then, it was secured to the skin with nylon sutures. Blood loss for the procedure was 20 mL. Operation carried out is Perm-A-Cath in the right jugular vein with C-arm fluoroscopy, ultrasound guidance, and micropuncture technique. Ultrasound images of the neck showed the vein was approximately 14 mm in diameter, normal compressibility and no intraluminal thrombosis. Catheter originated on the right chest wall, went to the jugular vein and terminated in the superior vena cava. Artis Dejesus Jr., MD
[2018-07-26 06:45] LABS: BASO % 0.3 % (0.0-2.0); EOS # 0.2 K/uL (0.0-0.7); EOS % 2.1 % (0.0-4.0); HEMOGLOBIN 8.9 g/dL (12.0-18.0); LYMPH # 0.5 K/uL (1.0-4.3); MEAN CELL VOLUME 95.8 fL (80.0-94.0); MEAN CORPUSCULAR HEMOGLOBIN 32.3 pg (27.0-31.0); MEAN CORPUSCULAR HGB CONC 33.7 g/dL (33.0-37.0); MEAN PLATELET VOLUME 7.1 fL (7.2-11.7); MONO # 0.9 K/uL (0.0-0.8); MONO % 8.4 % (0.0-10.0); NEUT # 8.8 K/uL (1.8-7.0); NEUT % 84.2 % (50.0-75.0); PLATELET COUNT 287 K/uL (130-400); RBC 2.75 Mil/uL (4.40-5.90); RED CELL DISTRIBUTION WIDTH 16.6 % (11.5-14.5); WHITE BLOOD COUNT 10.4 K/uL (4.8-10.8)
[2018-07-26] MEDS: Oxycodone/Acetaminophen 5/325 mg Tab PO PRN (06:50)
[2018-07-26 06:57] LABS: ALB/GLOB RATIO 1.2 (1.0-2.1); ALBUMIN 3.5 g/dL (3.5-5.0); CALCIUM 8.7 mg/dl (8.6-10.4)
[2018-07-26] MEDS: (Novolin R) Insulin Human Regular 100 units/ml vial SC SCH ×4 (08:23→21:23)
[2018-07-26 08:48] LABS: BASOPHIL 1 % (0-2); LYMPHOCYTE 7 % (20-40); MONOCYTE 6 % (0-10); NEUTROPHIL 86 % (50-75); PLATELET ESTIMATE NORMAL (NORMAL); TOTAL CELLS COUNTED 100
[2018-07-26 08:49] LABS: ANISOCYTOSIS SLIGHT; HYPOCHROMIC SLIGHT; POIKILOCYTOSIS SLIGHT
--- NOTE | 2018-07-26 09:02 | CP.PCM.PN ---
Subjective - Date & Time of Evaluation Date of Evaluation: 07/26/18 Time of Evaluation: 09:00 - Subjective Subjective: seen and examined s/p permcath placement c/o shortness of breath and dry cough no fevers or chills hd last night Objective - Vital Signs/Intake and Output Vital Signs (last 24 hours): Temp Pulse Resp BP Pulse Ox 98.6 F 97 H 20 140/71 97 07/26/18 07:00 07/26/18 07:00 07/26/18 07:00 07/26/18 07:00 07/26/18 07:00 Intake and Output: 07/26/18 07/26/18 06:59 18:59 Output Total 300 Balance -300 - Medications Medications: Current Medications Albuterol/Ipratropium (Duoneb 3 Mg/0.5 Mg (3 Ml) Ud) 3 ml IH RQ4 PRN PRN Reason: Shortness of Breath Amlodipine Besylate (Norvasc) 10 mg PO DAILY [facility] Calcitriol (Rocaltrol) 0.25 mcg PO DAILY [facility] Dextrose (Dextrose 50% Inj) 0 ml IV STAT PRN; Protocol PRN Reason: Hypoglycemia Protocol Dextrose (Glutose 15) 0 gm PO ONCE PRN; Protocol PRN Reason: Hypoglycemia Protocol Docusate Sodium (Colace) 100 mg PO DAILY [facility] Folic Acid (Folic Acid) 1 mg PO DAILY [facility] Furosemide (Lasix) 40 mg PO DAILY [facility] Glucagon (Glucagen Diagnostic Kit) 0 mg IM STAT PRN; Protocol PRN Reason: Hypoglycemia Protocol Dextrose (Dextrose 5% In Water 1000 Ml) 1,000 mls @ 0 mls/hr IV .Q0M PRN; Protocol PRN Reason: Hypoglycemia Protocol Insulin Human Regular (Novolin R) 0 unit SC ACHS [facility]; Protocol Last Admin: 07/26/18 08:23 Dose: 1 unit Oxycodone/Acetaminophen (Percocet 5/325 Mg Tab) 1 tab PO Q4H PRN PRN Reason: Pain, moderate (4-7) Stop: 07/28/18 16:57 Last Admin: 07/26/18 06:50 Dose: 1 tab Pantoprazole Sodium (Protonix Ec Tab) 40 mg PO DAILY [facility] Rosuvastatin Calcium (Crestor) 5 mg PO HS [facility] - Labs Labs: 07/26/18 06:32 01/29/19 06:32 PT 14.4 SECONDS (9.7-12.2) H 07/25/18 11:22 INR 1.3 07/25/18 11:22 APTT 39 SECONDS (21-34) H 07/25/18 11:22 - Constitutional Appears: Non-toxic, No Acute Distress - Head Exam Head Exam: NORMAL INSPECTION - Eye Exam Eye Exam: Normal appearance Pupil Exam: PERRL - ENT Exam ENT Exam: Mucous Membranes Moist, Normal Exam - Neck Exam Neck Exam: Full ROM (rt chest permcath), Normal Inspection - Respiratory Exam Respiratory Exam: Decreased Breath Sounds, Rhonchi - Cardiovascular Exam Cardiovascular Exam: REGULAR RHYTHM - GI/Abdominal Exam GI & Abdominal Exam: Soft, Normal Bowel Sounds - Extremities Exam Extremities Exam: Full ROM, Normal Inspection - Neurological Exam Neurological Exam: Alert, Awake, Oriented x3 - Skin Skin Exam: Dry, Intact Assessment and Plan (1) CKD (chronic kidney disease) stage 5, GFR less than 15 ml/min Status: Acute (2) Anemia Status: Acute (3) COPD (chronic obstructive pulmonary disease) Status: Acute - Assessment and Plan (Free Text) Assessment: nebulizers / steroids. repeat cxr may give one dose of lasix hd tomorrow am needs av fistula zara w/ hd
--- NOTE | 2018-07-26 10:29 | CP.PCM.PN ---
Subjective - Date & Time of Evaluation Date of Evaluation: 07/26/18 Time of Evaluation: 07:30 - Subjective Subjective: Surgery: Dr. Dejesus Pt seen and examined. No acute events overnight. Pt states he feels ok and admits to pain around permacath insertion site but denies other complaints at this time. Denies fevers/chills. Objective - Vital Signs/Intake and Output Vital Signs (last 24 hours): Temp Pulse Resp BP Pulse Ox 98.6 F 97 H 20 140/71 97 07/26/18 07:00 07/26/18 07:00 07/26/18 07:00 07/26/18 07:00 07/26/18 07:00 Intake and Output: 07/26/18 07/26/18 06:59 18:59 Output Total 300 Balance -300 - Medications Medications: Current Medications Albuterol/Ipratropium (Duoneb 3 Mg/0.5 Mg (3 Ml) Ud) 3 ml IH RQ4 PRN PRN Reason: Shortness of Breath Amlodipine Besylate (Norvasc) 10 mg PO DAILY [facility] Calcitriol (Rocaltrol) 0.25 mcg PO DAILY [facility] Dextrose (Dextrose 50% Inj) 0 ml IV STAT PRN; Protocol PRN Reason: Hypoglycemia Protocol Dextrose (Glutose 15) 0 gm PO ONCE PRN; Protocol PRN Reason: Hypoglycemia Protocol Docusate Sodium (Colace) 100 mg PO DAILY [facility] Folic Acid (Folic Acid) 1 mg PO DAILY [facility] Furosemide (Lasix) 40 mg PO DAILY [facility] Glucagon (Glucagen Diagnostic Kit) 0 mg IM STAT PRN; Protocol PRN Reason: Hypoglycemia Protocol Dextrose (Dextrose 5% In Water 1000 Ml) 1,000 mls @ 0 mls/hr IV .Q0M PRN; Protocol PRN Reason: Hypoglycemia Protocol Insulin Human Regular (Novolin R) 0 unit SC ACHS [facility]; Protocol Last Admin: 07/26/18 08:23 Dose: 1 unit Oxycodone/Acetaminophen (Percocet 5/325 Mg Tab) 1 tab PO Q4H PRN PRN Reason: Pain, moderate (4-7) Stop: 07/28/18 16:57 Last Admin: 07/26/18 06:50 Dose: 1 tab Pantoprazole Sodium (Protonix Ec Tab) 40 mg PO DAILY [facility] Rosuvastatin Calcium (Crestor) 5 mg PO HS [facility] - Labs Labs: 07/26/18 06:32 07/26/18 06:32 PT 14.4 SECONDS (9.7-12.2) H 07/25/18 11:22 INR 1.3 07/25/18 11:22 APTT 39 SECONDS (21-34) H 07/25/18 11:22 - Constitutional Appears: Well, No Acute Distress - Head Exam Head Exam: ATRAUMATIC, NORMOCEPHALIC - Eye Exam Eye Exam: Normal appearance - ENT Exam ENT Exam: Mucous Membranes Moist - Neck Exam Additional comments: R IJ permacath; dressing clean/dry/intact - Respiratory Exam Respiratory Exam: NORMAL BREATHING PATTERN - Cardiovascular Exam Cardiovascular Exam: RRR - GI/Abdominal Exam GI & Abdominal Exam: Soft. absent: Distended, Tenderness - Neurological Exam Neurological Exam: Alert, Awake, Oriented x3 - Skin Skin Exam: Dry, Warm Assessment and Plan - Assessment and Plan (Free Text) Assessment: 82M with ESRD s/p R IJ permacath; POD#1 Plan: - plan for peritoneal dialysis catheter tomorrow - optimize for OR - d/w Dr. Oleg Epps
[2018-07-26] MEDS: Pantoprazole 40 mg EC Tab PO SCH (10:44)
--- NOTE | 2018-07-26 12:24 | RAD ---
Date of service: 07/26/2018 HISTORY: ricky lower infiltrates, s/p portacath COMPARISON: July 25, 2018. FINDINGS: LUNGS: Stable lower lobe infiltrates PLEURA: No significant pleural effusion identified, no pneumothorax apparent. CARDIOVASCULAR: Atherosclerotic calcifications identified primarily aortic arch. Venous access catheter in stable, satisfactory position. No radiographic findings to suggest acute or significant cardiovascular disease. OSSEOUS STRUCTURES: No significant abnormalities. VISUALIZED UPPER ABDOMEN: Normal. OTHER FINDINGS: None. IMPRESSION: No significant interval change compared to the prior examination(s).
[2018-07-26] MEDS ORDERED: methylPREDNISolone 60 MG in Sodium Chloride 0.9% 100 ML IVPB ONE (14:15)
[2018-07-26] MEDS ORDERED: Albuterol-Ipratrop 3 mg / 0.5 (3 ml) UD INH STA (14:25)
[2018-07-26] MEDS ORDERED: MethylPREDNISolone 40 mg Vial IV ONE (14:30)
[2018-07-26] MEDS: Albuterol-Ipratrop 3 mg / 0.5 (3 ml) UD IH PRN ×2 (15:48→19:36)
--- NOTE | 2018-07-26 15:57 | RAD ---
Date of service: 07/26/2018 HISTORY: SOB, hx of COPD COMPARISON: 07/26/2018 at 0847 hr FINDINGS: LUNGS: Bibasilar subsegmental atelectasis and/or infiltrates-similar. PLEURA: Minimal right pleural effusion and/or pleural thickening-similar in appearance., no pneumothorax apparent. Right lateral skin fold projecting over lateral right hemithorax inferred. CARDIOVASCULAR: There is presence of aortic atherosclerotic calcification on x-ray. Mild cardiomegaly. Mild pulmonary venous congestion-similar. Right PermCath in satisfactory position.-similar OSSEOUS STRUCTURES: Thoracic spondylosis. Bilateral shoulder arthrosis. VISUALIZED UPPER ABDOMEN: Normal. OTHER FINDINGS: None. IMPRESSION: Bibasilar subsegmental atelectasis and/or infiltrates-this an the after mentioned findings are similar. No interval pathology noted.
--- NOTE | 2018-07-26 17:32 | CP.PCM.PN ---
<Lopez Hightower - Last Filed: 07/26/18 17:21> Subjective - Date & Time of Evaluation Date of Evaluation: 07/26/18 Time of Evaluation: 17:21 - Subjective Subjective: HOSPITALIST SERVICE Pt s/e at bedside. Pt complains of SOB, feels chest tightness as well, pt reports tolerating dialysis well however still feels fatigued. Pt denies CP, FC/ NV. Pt understands current status and agrees with plan. Objective - Vital Signs/Intake and Output Vital Signs (last 24 hours): Temp Pulse Resp BP Pulse Ox 99.2 F 109 H 20 120/64 95 07/26/18 15:58 07/26/18 15:58 07/26/18 15:58 07/26/18 15:58 07/26/18 15:58 Intake and Output: 07/26/18 07/26/18 06:59 18:59 Output Total 300 Balance -300 - Medications Medications: Current Medications Albuterol/Ipratropium (Duoneb 3 Mg/0.5 Mg (3 Ml) Ud) 3 ml IH RQ4 PRN PRN Reason: Shortness of Breath Last Admin: 07/26/18 15:48 Dose: 3 ml Amlodipine Besylate (Norvasc) 10 mg PO DAILY [facility] Last Admin: 07/26/18 10:44 Dose: 10 mg Calcitriol (Rocaltrol) 0.25 mcg PO DAILY [facility] Last Admin: 07/26/18 10:44 Dose: 0.25 mcg Dextrose (Dextrose 50% Inj) 0 ml IV STAT PRN; Protocol PRN Reason: Hypoglycemia Protocol Dextrose (Glutose 15) 0 gm PO ONCE PRN; Protocol PRN Reason: Hypoglycemia Protocol Docusate Sodium (Colace) 100 mg PO DAILY [facility] Last Admin: 07/26/18 10:44 Dose: 100 mg Folic Acid (Folic Acid) 1 mg PO DAILY [facility] Last Admin: 07/26/18 10:44 Dose: 1 mg Furosemide (Lasix) 40 mg PO DAILY [facility] Last Admin: 07/26/18 10:45 Dose: 40 mg Glucagon (Glucagen Diagnostic Kit) 0 mg IM STAT PRN; Protocol PRN Reason: Hypoglycemia Protocol Heparin Sodium (Porcine) (Heparin) 5,000 units SC Q12H [facility] Dextrose (Dextrose 5% In Water 1000 Ml) 1,000 mls @ 0 mls/hr IV .Q0M PRN; Protocol PRN Reason: Hypoglycemia Protocol Insulin Human Regular (Novolin R) 0 unit SC ACHS [facility]; Protocol Last Admin: 07/26/18 17:08 Dose: Not Given Methylprednisolone (Solu-Medrol) 40 mg IV DAILY [facility] Oxycodone/Acetaminophen (Percocet 5/325 Mg Tab) 1 tab PO Q4H PRN PRN Reason: Pain, moderate (4-7) Stop: 07/28/18 16:57 Last Admin: 07/26/18 06:50 Dose: 1 tab Pantoprazole Sodium (Protonix Ec Tab) 40 mg PO DAILY [facility] Last Admin: 07/26/18 10:44 Dose: 40 mg Rosuvastatin Calcium (Crestor) 5 mg PO [facility] - Labs Labs: 07/26/18 06:32 07/26/18 06:32 PT 14.4 SECONDS (9.7-12.2) H 07/25/18 11:22 INR 1.3 07/25/18 11:22 APTT 39 SECONDS (21-34) H 07/25/18 11:22 - Additional Findings Additional findings: - Constitutional Appears: Non-toxic, No Acute Distress - Head Exam Head Exam: NORMAL INSPECTION - Eye Exam Eye Exam: Normal appearance Pupil Exam: PERRL - ENT Exam ENT Exam: Mucous Membranes Moist, Normal Exam - Neck Exam Neck Exam: Full ROM (rt chest permcath), Normal Inspection - Respiratory Exam Respiratory Exam: Decreased Breath Sounds, Rhonchi lower jackson - Cardiovascular Exam Cardiovascular Exam: REGULAR RHYTHM - GI/Abdominal Exam GI & Abdominal Exam: Soft, Normal Bowel Sounds - Extremities Exam Extremities Exam: Full ROM, Normal Inspection - Neurological Exam Neurological Exam: Alert, Awake, Oriented x3 - Skin Skin Exam: Dry, Intact Assessment and Plan - Assessment and Plan (Free Text) Assessment: Assessment: 82M with a PMHx of CKD admitted s/p permacath and 1st time dialysis CKD Stage 5 BUN/Cr: downtrending GFR: 14 dialysed yesterday evening, for dialysis tmrw Dr. Dejesus consulted for dialysis access, help appreciated Dr. Dutton consulted, help appreciated seen at bedside w/ Dr Mc, recommeding: -stat CXR, Duonebs, Solumedrol 60, Lasix 40 IVP -dialyze tmrw Pt tolerated breathing treatments and lasix, for dialysis tmrw NEG hepatitis panel Calcitriol .25mcg po daily Folic acid 1mg po daily DMII HgA1C: 9.3 hold glimepiride Accuchecks ISS hypoglycemia protocol HTN Amlodipine 10mg po daily HLD Simvastatin NF Crestor 5mg po HS COPD Duonebs q4h prn Lasix 40mg po daily Solumedrol 40 qd starting 07/27 07/26 CXR appears VC improving Prophylaxis SCDs Protonix 40mg po daily renal low carb diet Discussed with Dr. Dias <Sabino Dias - Last Filed: 07/28/18 16:43> Objective - Vital Signs/Intake and Output Vital Signs (last 24 hours): Temp Pulse Resp BP Pulse Ox 98.4 F 88 20 147/71 96 07/28/18 07:40 07/28/18 07:40 07/28/18 07:40 07/28/18 09:29 07/28/18 07:40 Intake and Output: 07/28/18 07/28/18 06:59 18:59 Intake Total 330 Output Total 700 Balance -370 - Medications Medications: Current Medications Albuterol/Ipratropium (Duoneb 3 Mg/0.5 Mg (3 Ml) Ud) 3 ml IH RQ4 PRN PRN Reason: Shortness of Breath Last Admin: 07/28/18 16:28 Dose: 3 ml Amlodipine Besylate (Norvasc) 10 mg PO DAILY [facility] Last Admin: 07/28/18 09:29 Dose: 10 mg Calcitriol (Rocaltrol) 0.25 mcg PO DAILY [facility] Last Admin: 07/28/18 09:29 Dose: 0.25 mcg Dextrose (Dextrose 50% Inj) 0 ml IV STAT PRN; Protocol PRN Reason: Hypoglycemia Protocol Dextrose (Glutose 15) 0 gm PO ONCE PRN; Protocol PRN Reason: Hypoglycemia Protocol Docusate Sodium (Colace) 100 mg PO DAILY [facility] Last Admin: 07/28/18 09:27 Dose: 100 mg Epoetin Justino (Procrit) 10,000 unit IV MWF [facility] Last Admin: 07/27/18 17:04 Dose: 10,000 unit Ferric Sodium Gluconate Complex (Ferrlecit) 125 mg IVPB Q24H [facility] Stop: 08/05/18 11:01 Last Admin: 07/28/18 12:01 Dose: 125 mg Folic Acid (Folic Acid) 1 mg PO DAILY [facility] Last Admin: 07/28/18 09:29 Dose: 1 mg Glipizide (Glucotrol) 2.5 mg PO ACB [facility] Glucagon (Glucagen Diagnostic Kit) 0 mg IM STAT PRN; Protocol PRN Reason: Hypoglycemia Protocol Heparin Sodium (Porcine) (Heparin) 5,000 units SC Q12H [facility] Last Admin: 07/28/18 09:28 Dose: 5,000 units Dextrose (Dextrose 5% In Water 1000 Ml) 1,000 mls @ 0 mls/hr IV .Q0M PRN; Protocol PRN Reason: Hypoglycemia Protocol Insulin Human Regular (Novolin R) 0 unit SC ACHS [facility]; Protocol Last Admin: 07/28/18 12:50 Dose: 6 unit Oxycodone/Acetaminophen (Percocet 5/325 Mg Tab) 1 tab PO Q4H PRN PRN Reason: Pain, moderate (4-7) Stop: 07/28/18 16:57 Last Admin: 07/28/18 09:25 Dose: 1 tab Pantoprazole Sodium (Protonix Ec Tab) 40 mg PO DAILY [facility] Last Admin: 07/28/18 09:28 Dose: 40 mg Rosuvastatin Calcium (Crestor) 5 mg PO HS [facility] Last Admin: 07/27/18 22:02 Dose: 5 mg - Labs Labs: 07/28/18 07:18 07/28/18 07:18 PT 13.0 SECONDS (9.7-12.2) H 07/27/18 06:34 INR 1.2 07/27/18 06:34 APTT 35 SECONDS (21-34) H 07/27/18 06:34 Attending/Attestation - Attestation I have personally seen and examined this patient.: Yes I have fully participated in the care of the patient.: Yes I have reviewed all pertinent clinical information, including history, physical exam and plan: Yes Notes (Text): seen and examined with the resident. He is sob
--- NOTE | 2018-07-26 20:37 | CARD ---
APPROVED REPORT Date of service: 07/25/2018 EKG Measurement Heart [id number] <Conclusion> Normal sinus rhythm Possible Left atrial enlargement Poor R wave progression Borderline ECG
[2018-07-27] MEDS: Oxycodone/Acetaminophen 5/325 mg Tab PO PRN (01:28)
[2018-07-27 06:52] LABS: HEMOGLOBIN 8.5 g/dL (12.0-18.0); MEAN CELL VOLUME 95.8 fL (80.0-94.0); MEAN CORPUSCULAR HEMOGLOBIN 31.6 pg (27.0-31.0); RBC 2.69 Mil/uL (4.40-5.90); RED CELL DISTRIBUTION WIDTH 16.8 % (11.5-14.5); WHITE BLOOD COUNT 7.8 K/uL (4.8-10.8)
[2018-07-27] MEDS ORDERED: ceFAZolin 1 gm in NS 1 GM/100 ML BAG IVPB ONE (07:05)
[2018-07-27 07:24] LABS: INR 1.2
[2018-07-27] MEDS: (Novolin R) Insulin Human Regular 100 units/ml vial SC SCH ×4 (07:30→22:24)
[2018-07-27 07:40] LABS: ALB/GLOB RATIO 1.1 (1.0-2.1); ALBUMIN 3.5 g/dL (3.5-5.0); CALCIUM 8.8 mg/dl (8.6-10.4)
[2018-07-27] MEDS ORDERED: Etomidate 20 mg/10ml Inj IV ONE (08:01)
[2018-07-27] MEDS ORDERED: Succinylcholine Chloride 20 mg/ml Syr (5 ml) IV ONE (08:01)
[2018-07-27] MEDS ORDERED: Rocuronium 10 mg/ml (10 ml) ONE (08:01)
[2018-07-27] MEDS ORDERED: ePHEDrine 50 mg/ml Inj ONE (08:50)
[2018-07-27] MEDS ORDERED: Neostigmine 1:1000 (1 mg/ml) Inj ONE (09:01)
--- NOTE | 2018-07-27 09:12 | PCM.SURG1 ---
Surgeon's Initial Post Op Note - Surgeon's Notes Surgeon: michelle Licensed Physical Therapist: 0 Type of Anesthesia: General LMA Anesthesia Administered By: tank Pre-Operative Diagnosis: renal failure Operative Findings: good return/ previous mesh hernia repair in groin Post-Operative Diagnosis: same Operation Performed: laparoscopic placement of tenckhoff peritoneal dialysis catheter Specimen/Specimens Removed: 0 Estimated Blood Loss: EBL {In ML}: 5 Blood Products Given: N/A Drains Used: No Drains Post-Op Condition: Good Date of Surgery/Procedure: 07/27/18 Time of Surgery/Procedure: 09:12
[2018-07-27] MEDS ORDERED: Esmolol 100 mg/10ml Inj IV ONE (09:14)
[2018-07-27] MEDS: HYDROmorphone 0.5 mg/0.5 ml ISec IVP PRN ×2 (09:29→09:49)
[2018-07-27] MEDS ORDERED: methylPREDNISolone 40 MG in Sodium Chloride 0.9% 100 ML IVPB SCH (10:00)
[2018-07-27] MEDS ORDERED: MethylPREDNISolone 40 mg Vial IV SCH (10:00)
--- NOTE | 2018-07-27 10:42 | CP.PCM.PN ---
<Lopez Hightower - Last Filed: 07/27/18 17:10> Subjective - Date & Time of Evaluation Date of Evaluation: 07/27/18 Time of Evaluation: 10:42 - Subjective Subjective: HOSPITALIST SERVICE Pt s/e at bedside, pt reports improvement in SOB since yesterday. Pt reports sensation of urinary retention. Pt says he tolerated the peritoneal dialysis port placement procedure well today. Denies CP SOB FC NV Objective - Vital Signs/Intake and Output Vital Signs (last 24 hours): Temp Pulse Resp BP Pulse Ox 98.9 F 89 15 137/75 96 07/27/18 09:21 07/27/18 10:15 07/27/18 10:15 07/27/18 10:15 07/27/18 10:15 Intake and Output: 07/27/18 07/27/18 06:59 18:59 Intake Total 240 400 Output Total 150 Balance 90 400 - Medications Medications: Current Medications Albuterol/Ipratropium (Duoneb 3 Mg/0.5 Mg (3 Ml) Ud) 3 ml IH RQ4 PRN PRN Reason: Shortness of Breath Last Admin: 07/26/18 19:36 Dose: 3 ml Amlodipine Besylate (Norvasc) 10 mg PO DAILY [facility] Last Admin: 07/26/18 10:44 Dose: 10 mg Calcitriol (Rocaltrol) 0.25 mcg PO DAILY [facility] Last Admin: 07/26/18 10:44 Dose: 0.25 mcg Dextrose (Dextrose 50% Inj) 0 ml IV STAT PRN; Protocol PRN Reason: Hypoglycemia Protocol Dextrose (Glutose 15) 0 gm PO ONCE PRN; Protocol PRN Reason: Hypoglycemia Protocol Docusate Sodium (Colace) 100 mg PO DAILY [facility] Last Admin: 07/26/18 10:44 Dose: 100 mg Folic Acid (Folic Acid) 1 mg PO DAILY [facility] Last Admin: 07/26/18 10:44 Dose: 1 mg Furosemide (Lasix) 40 mg PO DAILY [facility] Last Admin: 07/26/18 10:45 Dose: 40 mg Glucagon (Glucagen Diagnostic Kit) 0 mg IM STAT PRN; Protocol PRN Reason: Hypoglycemia Protocol Heparin Sodium (Porcine) (Heparin) 5,000 units SC Q12H [facility] Last Admin: 07/26/18 22:11 Dose: 5,000 units Hydromorphone HCl (Dilaudid) 0.5 mg IVP Q15M PRN PRN Reason: Pain, moderate (4-7) Stop: 07/27/18 11:26 Last Admin: 07/27/18 09:49 Dose: 0.5 mg Dextrose (Dextrose 5% In Water 1000 Ml) 1,000 mls @ 0 mls/hr IV .Q0M PRN; Protocol PRN Reason: Hypoglycemia Protocol Insulin Human Regular (Novolin R) 0 unit SC [facility]; Protocol Last Admin: 07/27/18 07:30 Dose: Not Given Methylprednisolone (Solu-Medrol) 40 mg IV DAILY [facility] Metoclopramide HCl (Reglan) 10 mg IVP ONCE PRN PRN Reason: Nausea/Vomiting Stop: 07/27/18 11:26 Ondansetron HCl (Zofran Inj) 4 mg IVP ONCE PRN PRN Reason: Nausea/Vomiting Stop: 07/27/18 11:26 Oxycodone/Acetaminophen (Percocet 5/325 Mg Tab) 1 tab PO Q4H PRN PRN Reason: Pain, moderate (4-7) Stop: 07/28/18 16:57 Last Admin: 07/27/18 01:28 Dose: 1 tab Pantoprazole Sodium (Protonix Ec Tab) 40 mg PO DAILY [facility] Last Admin: 07/26/18 10:44 Dose: 40 mg Rosuvastatin Calcium (Crestor) 5 mg PO HS [facility] Last Admin: 07/26/18 22:10 Dose: 5 mg - Labs Labs: 07/27/18 06:34 07/27/18 06:34 PT 13.0 SECONDS (9.7-12.2) H 07/27/18 06:34 INR 1.2 07/27/18 06:34 APTT 35 SECONDS (21-34) H 07/27/18 06:34 - Additional Findings Additional findings: - Constitutional Appears: Non-toxic, No Acute Distress - Head Exam Head Exam: NORMAL INSPECTION - Eye Exam Eye Exam: Normal appearance Pupil Exam: PERRL - ENT Exam ENT Exam: Mucous Membranes Moist, Normal Exam - Neck Exam Neck Exam: Full ROM (rt chest permcath), Normal Inspection - Respiratory Exam Respiratory Exam: Decreased Breath Sounds, Rhonchi lower jackson - Cardiovascular Exam Cardiovascular Exam: REGULAR RHYTHM - GI/Abdominal Exam GI & Abdominal Exam: Soft, Normal Bowel Sounds, L abdomen, peritoneal dialysis cath covered w bandage written "do not touch" - Extremities Exam Extremities Exam: Full ROM, Normal Inspection - Neurological Exam Neurological Exam: Alert, Awake, Oriented x3 - Skin Skin Exam: Dry, Intact Assessment and Plan - Assessment and Plan (Free Text) Plan: 82M with a PMHx of CKD admitted s/p permacath and 1st time dialysis CKD Stage 5 BUN/Cr: downtrending GFR: 14 dialysed yesterday evening, for dialysis tmrw Dr. Dejesus consulted for dialysis access, help appreciated Dr. Dutton consulted, help appreciated seen at bedside w/ Dr Mc, recommeding -dialyze wednesday w/ possible d/c home if well tolerated Pt tolerated breathing treatments and lasix, NEG hepatitis panel Calcitriol .25mcg po daily Folic acid 1mg po daily DMII HgA1C: 9.3 hold glimepiride Accuchecks ISS hypoglycemia protocol HTN Amlodipine 10mg po daily HLD Simvastatin NF Crestor 5mg po HS COPD Duonebs q4h prn Lasix 40mg po daily Solumedrol 40 qd 07/26 CXR appears VC improving Prophylaxis SCDs Protonix 40mg po daily renal low carb diet Discussed with Dr. Dias <Sabino Dias - Last Filed: 07/28/18 16:17> Objective - Vital Signs/Intake and Output Vital Signs (last 24 hours): Temp Pulse Resp BP Pulse Ox 98.4 F 88 20 147/71 96 07/28/18 07:40 07/28/18 07:40 07/28/18 07:40 07/28/18 09:29 07/28/18 07:40 Intake and Output: 07/28/18 07/28/18 06:59 18:59 Intake Total 330 Output Total 700 Balance -370 - Medications Medications: Current Medications Albuterol/Ipratropium (Duoneb 3 Mg/0.5 Mg (3 Ml) Ud) 3 ml IH RQ4 PRN PRN Reason: Shortness of Breath Last Admin: 07/26/18 19:36 Dose: 3 ml Amlodipine Besylate (Norvasc) 10 mg PO DAILY [facility] Last Admin: 07/28/18 09:29 Dose: 10 mg Calcitriol (Rocaltrol) 0.25 mcg PO DAILY [facility] Last Admin: 07/28/18 09:29 Dose: 0.25 mcg Dextrose (Dextrose 50% Inj) 0 ml IV STAT PRN; Protocol PRN Reason: Hypoglycemia Protocol Dextrose (Glutose 15) 0 gm PO ONCE PRN; Protocol PRN Reason: Hypoglycemia Protocol Docusate Sodium (Colace) 100 mg PO DAILY [facility] Last Admin: 07/28/18 09:27 Dose: 100 mg Epoetin Justino (Procrit) 10,000 unit IV MWF [facility] Last Admin: 07/27/18 17:04 Dose: 10,000 unit Ferric Sodium Gluconate Complex (Ferrlecit) 125 mg IVPB Q24H [facility] Stop: 08/05/18 11:01 Last Admin: 07/28/18 12:01 Dose: 125 mg Folic Acid (Folic Acid) 1 mg PO DAILY [facility] Last Admin: 07/28/18 09:29 Dose: 1 mg Glucagon (Glucagen Diagnostic Kit) 0 mg IM STAT PRN; Protocol PRN Reason: Hypoglycemia Protocol Heparin Sodium (Porcine) (Heparin) 5,000 units SC Q12H [facility] Last Admin: 07/28/18 09:28 Dose: 5,000 units Dextrose (Dextrose 5% In Water 1000 Ml) 1,000 mls @ 0 mls/hr IV .Q0M PRN; Protocol PRN Reason: Hypoglycemia Protocol Insulin Human Regular (Novolin R) 0 unit SC ACHS [facility]; Protocol Last Admin: 07/28/18 12:50 Dose: 6 unit Oxycodone/Acetaminophen (Percocet 5/325 Mg Tab) 1 tab PO Q4H PRN PRN Reason: Pain, moderate (4-7) Stop: 07/28/18 16:57 Last Admin: 07/28/18 09:25 Dose: 1 tab Pantoprazole Sodium (Protonix Ec Tab) 40 mg PO DAILY [facility] Last Admin: 07/28/18 09:28 Dose: 40 mg Rosuvastatin Calcium (Crestor) 5 mg PO HS [facility] Last Admin: 07/27/18 22:02 Dose: 5 mg - Labs Labs: 07/28/18 07:18 07/28/18 07:18 PT 13.0 SECONDS (9.7-12.2) H 07/27/18 06:34 INR 1.2 07/27/18 06:34 APTT 35 SECONDS (21-34) H 07/27/18 06:34 Attending/Attestation - Attestation I have personally seen and examined this patient.: Yes I have fully participated in the care of the patient.: Yes I have reviewed all pertinent clinical information, including history, physical exam and plan: Yes Notes (Text): Seen and examined by me. patient tolerated procedure well Having his second HD today monitor sugar His breathing is better,His sob is likely due to combination of copd and fluids due to RF may taper or stop steroid spoke to CW about out patient dialysis arrangements Assessment and the plan discussed with the resident and I agree with the documentation
[2018-07-27] MEDS: Pantoprazole 40 mg EC Tab PO SCH (11:47)
[2018-07-27] MEDS: MethylPREDNISolone 40 mg Vial IV SCH (12:52)
--- NOTE | 2018-07-27 12:56 | OP ---
PROCEDURE DATE: 07/27/2018 PREOPERATIVE DIAGNOSIS: Renal failure. POSTOPERATIVE DIAGNOSIS: Renal failure. PROCEDURE: Laparoscopic placement of Tenckhoff peritoneal dialysis catheter. SURGEON: Artis Dejesus Jr., MD FASHION SHOW DIRECTOR: None. ANESTHESIOLOGIST: Dr. Bueno. INDICATIONS: The patient is an 82-year-old man, recently started on hemodialysis, requests peritoneal dialysis such as renal replacement therapy. OPERATIVE FINDINGS: Procedure was carried out laparoscopically. Initially, we placed the catheter, a trocar in the right upper quadrant after completing pneumoperitoneum. Based on this, we were able to look into the pelvis. There was evidence of bilateral mesh repair of inguinal hernias and subsequently we were able to see that there were no significant adhesions in the pelvis. In addition, we were able to inflow fluid to check on the return of the catheter and the catheter was well seated in the pelvis. DESCRIPTION OF PROCEDURE: The patient was given general anesthesia, intravenous antibiotics and Venodyne boots were applied. A trocar was inserted in the right upper quadrant. This was used as a monitoring device. We then placed an 8-mm trocar just to the left of the midline and placed a Tenckhoff double-cuffed curly Q dialysis catheter into the pelvis. This was placed through the anterior rectus sheath down into the pelvis so that it was lying down there. It was tested for flow, which was satisfactory. We then closed the wounds and applied dressings. Blood loss to the procedure was 5 mL. Artis Dejesus Jr., MD cc:
[2018-07-27] MEDS: Epoetin Alfa 10,000 unit/ml Dialysis IV SCH (17:04)
--- NOTE | 2018-07-28 06:52 | CP.PCM.PN ---
Subjective - Date & Time of Evaluation Date of Evaluation: 07/28/18 Time of Evaluation: 06:52 - Subjective Subjective: HOSPITALIST SERVICE Pt s/e at bedside w/ Dr Dias. Pt reports substantial improvement in general energy levels and no longer feels SOB. Pt no longer has complaints of urinary retention sensations. Pt understands he is to receive HD MWFs and establish outpt dialysis center care. Pt denies CP SOB FV NV, 12point ROS reviewed and otherwise normal Objective - Vital Signs/Intake and Output Vital Signs (last 24 hours): Temp Pulse Resp BP Pulse Ox 98.3 F 93 H 20 126/76 95 07/27/18 23:00 07/28/18 00:00 07/27/18 23:00 07/27/18 23:00 07/27/18 23:15 Intake and Output: 07/27/18 07/28/18 18:59 06:59 Intake Total 450 330 Output Total 700 Balance 450 -370 - Medications Medications: Current Medications Albuterol/Ipratropium (Duoneb 3 Mg/0.5 Mg (3 Ml) Ud) 3 ml IH RQ4 PRN PRN Reason: Shortness of Breath Last Admin: 07/26/18 19:36 Dose: 3 ml Amlodipine Besylate (Norvasc) 10 mg PO DAILY [facility] Last Admin: 07/27/18 11:48 Dose: 10 mg Calcitriol (Rocaltrol) 0.25 mcg PO DAILY [facility] Last Admin: 07/27/18 11:47 Dose: 0.25 mcg Dextrose (Dextrose 50% Inj) 0 ml IV STAT PRN; Protocol PRN Reason: Hypoglycemia Protocol Dextrose (Glutose 15) 0 gm PO ONCE PRN; Protocol PRN Reason: Hypoglycemia Protocol Docusate Sodium (Colace) 100 mg PO DAILY [facility] Last Admin: 07/27/18 11:49 Dose: 100 mg Epoetin Justino (Procrit) 10,000 unit IV MWF [facility] Last Admin: 07/27/18 17:04 Dose: 10,000 unit Folic Acid (Folic Acid) 1 mg PO DAILY [facility] Last Admin: 07/27/18 11:47 Dose: 1 mg Furosemide (Lasix) 40 mg PO DAILY [facility] Last Admin: 07/27/18 11:47 Dose: 40 mg Glucagon (Glucagen Diagnostic Kit) 0 mg IM STAT PRN; Protocol PRN Reason: Hypoglycemia Protocol Heparin Sodium (Porcine) (Heparin) 5,000 units SC Q12H [facility] Last Admin: 07/27/18 22:03 Dose: Not Given Dextrose (Dextrose 5% In Water 1000 Ml) 1,000 mls @ 0 mls/hr IV .Q0M PRN; Protocol PRN Reason: Hypoglycemia Protocol Insulin Human Regular (Novolin R) 0 unit SC ACHS [facility]; Protocol Last Admin: 07/27/18 22:24 Dose: Not Given Methylprednisolone (Solu-Medrol) 30 mg IV DAILY [facility] Last Admin: 07/27/18 12:52 Dose: Not Given Oxycodone/Acetaminophen (Percocet 5/325 Mg Tab) 1 tab PO Q4H PRN PRN Reason: Pain, moderate (4-7) Stop: 07/28/18 16:57 Last Admin: 07/27/18 01:28 Dose: 1 tab Pantoprazole Sodium (Protonix Ec Tab) 40 mg PO DAILY [facility] Last Admin: 07/27/18 11:47 Dose: 40 mg Rosuvastatin Calcium (Crestor) 5 mg PO HS [facility] Last Admin: 07/27/18 22:02 Dose: 5 mg - Labs Labs: 07/27/18 06:34 07/27/18 06:34 PT 13.0 SECONDS (9.7-12.2) H 07/27/18 06:34 INR 1.2 07/27/18 06:34 APTT 35 SECONDS (21-34) H 07/27/18 06:34 - Additional Findings Additional findings: - Constitutional Appears: Non-toxic, No Acute Distress - Head Exam Head Exam: NORMAL INSPECTION - Eye Exam Eye Exam: Normal appearance Pupil Exam: PERRL - ENT Exam ENT Exam: Mucous Membranes Moist, Normal Exam - Neck Exam Neck Exam: Full ROM (rt chest permcath), Normal Inspection - Respiratory Exam Respiratory Exam: Decreased Breath Sounds, Rhonchi [place] - Cardiovascular Exam Cardiovascular Exam: REGULAR RHYTHM - GI/Abdominal Exam GI & Abdominal Exam: Soft, Normal Bowel Sounds, L abdomen, peritoneal dialysis cath covered w bandage written "do not touch" - Extremities Exam Extremities Exam: Full ROM, Normal Inspection - Neurological Exam Neurological Exam: Alert, Awake, Oriented x3 - Skin Skin Exam: Dry, Intact Assessment and Plan - Assessment and Plan (Free Text) Assessment: 82M with a PMHx of CKD admitted s/p permacath 07/25, and peritoneal dialysis cath 07/27 w/ Oleg and 1st time dialysis CKD Stage 5 BUN/Cr: downtrending GFR: 14 dialysed yesterday evening, for dialysis tmrw Dr. Dejesus consulted for dialysis access, help appreciated Dr. Dutton consulted, help appreciated seen at bedside w/ Dr Mc, recommeding -dialyze wednesday w/ possible d/c home if well tolerated Pt tolerated breathing treatments and lasix, NEG hepatitis panel Calcitriol .25mcg po daily Folic acid 1mg po daily DMII HgA1C: 9.3 hold glimepiride Accuchecks ISS hypoglycemia protocol HTN Amlodipine 10mg po daily HLD Simvastatin NF Crestor 5mg po HS COPD Duonebs q4h prn Lasix 40mg po daily stop today Solumedrol 40 qd 07/26 CXR appears VC improving Prophylaxis SCDs Protonix 40mg po daily renal low carb diet Discussed with Dr. Dias
[2018-07-28 07:35] LABS: MEAN CELL VOLUME 95.1 fL (80.0-94.0); MEAN CORPUSCULAR HEMOGLOBIN 31.1 pg (27.0-31.0); MEAN CORPUSCULAR HGB CONC 32.7 g/dL (33.0-37.0); MEAN PLATELET VOLUME 6.9 fL (7.2-11.7); RBC 2.9 Mil/uL (4.40-5.90); RED CELL DISTRIBUTION WIDTH 16.9 % (11.5-14.5)
[2018-07-28 07:37] LABS: WHITE BLOOD COUNT 15.4 K/uL (4.8-10.8)
[2018-07-28] MEDS: (Novolin R) Insulin Human Regular 100 units/ml vial SC SCH ×5 (08:00→22:17)
--- NOTE | 2018-07-28 08:03 | CP.PCM.PN ---
Subjective - Date & Time of Evaluation Date of Evaluation: 07/28/18 Time of Evaluation: 07:00 - Subjective Subjective: Surgery progress note for Dr. Dejesus. Patient seen and examined at bedside. No acute events reported overnight. Patient states he was able to urinate post OR yesterday and overall feels okay. Patient reports minimal to moderate pain around PD site; however, offers no other complaints. Denies N/V, F/C, chest pain, SOB, abd pain, constipation, diarrhea. Objective - Vital Signs/Intake and Output Vital Signs (last 24 hours): Temp Pulse Resp BP Pulse Ox 98.3 F 93 H 20 126/76 95 07/27/18 23:00 07/28/18 00:00 07/27/18 23:00 07/27/18 23:00 07/27/18 23:15 Intake and Output: 07/28/18 07/28/18 06:59 18:59 Intake Total 330 Output Total 700 Balance -370 - Medications Medications: Current Medications Albuterol/Ipratropium (Duoneb 3 Mg/0.5 Mg (3 Ml) Ud) 3 ml IH RQ4 PRN PRN Reason: Shortness of Breath Last Admin: 07/26/18 19:36 Dose: 3 ml Amlodipine Besylate (Norvasc) 10 mg PO DAILY [facility] Last Admin: 07/27/18 11:48 Dose: 10 mg Calcitriol (Rocaltrol) 0.25 mcg PO DAILY [facility] Last Admin: 07/27/18 11:47 Dose: 0.25 mcg Dextrose (Dextrose 50% Inj) 0 ml IV STAT PRN; Protocol PRN Reason: Hypoglycemia Protocol Dextrose (Glutose 15) 0 gm PO ONCE PRN; Protocol PRN Reason: Hypoglycemia Protocol Docusate Sodium (Colace) 100 mg PO DAILY [facility] Last Admin: 07/27/18 11:49 Dose: 100 mg Epoetin Justino (Procrit) 10,000 unit IV MWF [facility] Last Admin: 07/27/18 17:04 Dose: 10,000 unit Folic Acid (Folic Acid) 1 mg PO DAILY [facility] Last Admin: 07/27/18 11:47 Dose: 1 mg Furosemide (Lasix) 40 mg PO DAILY [facility] Last Admin: 07/27/18 11:47 Dose: 40 mg Glucagon (Glucagen Diagnostic Kit) 0 mg IM STAT PRN; Protocol PRN Reason: Hypoglycemia Protocol Heparin Sodium (Porcine) (Heparin) 5,000 units SC Q12H [facility] Last Admin: 07/27/18 22:03 Dose: Not Given Dextrose (Dextrose 5% In Water 1000 Ml) 1,000 mls @ 0 mls/hr IV .Q0M PRN; Protocol PRN Reason: Hypoglycemia Protocol Insulin Human Regular (Novolin R) 0 unit SC ACHS [facility]; Protocol Last Admin: 07/27/18 22:24 Dose: Not Given Methylprednisolone (Solu-Medrol) 30 mg IV DAILY [facility] Last Admin: 07/27/18 12:52 Dose: Not Given Oxycodone/Acetaminophen (Percocet 5/325 Mg Tab) 1 tab PO Q4H PRN PRN Reason: Pain, moderate (4-7) Stop: 07/28/18 16:57 Last Admin: 07/27/18 01:28 Dose: 1 tab Pantoprazole Sodium (Protonix Ec Tab) 40 mg PO DAILY [facility] Last Admin: 07/27/18 11:47 Dose: 40 mg Rosuvastatin Calcium (Crestor) 5 mg PO HS [facility] Last Admin: 07/27/18 22:02 Dose: 5 mg - Labs Labs: 07/28/18 07:18 07/27/18 06:34 PT 13.0 SECONDS (9.7-12.2) H 07/27/18 06:34 INR 1.2 07/27/18 06:34 APTT 35 SECONDS (21-34) H 07/27/18 06:34 - Constitutional Appears: Non-toxic, No Acute Distress - Head Exam Head Exam: NORMAL INSPECTION - Eye Exam Eye Exam: Normal appearance - ENT Exam ENT Exam: Mucous Membranes Moist - Respiratory Exam Respiratory Exam: NORMAL BREATHING PATTERN Additional comments: R IJ permacath in place - Cardiovascular Exam Additional comments: RR - GI/Abdominal Exam GI & Abdominal Exam: Soft, Normal Bowel Sounds Additional comments: PD catheter dressing clean, dry, intact - Neurological Exam Neurological Exam: Alert, Awake - Psychiatric Exam Psychiatric exam: Normal Affect, Normal Mood - Skin Skin Exam: Dry, Normal Color, Warm Assessment and Plan - Assessment and Plan (Free Text) Assessment: 82M with ESRD s/p R IJ permacath; POD#3; s/p PD cath POD #1 Plan: - may continue to use permacath for dialysis - F/u Dr. Dejesus 7-10 days - keep dressing clean, dry, intact - cleared from surgical standpoint, clear for d/c per primary team - D/w Dr. Oleg Cole, PGY1
[2018-07-28 08:07] LABS: ALB/GLOB RATIO 1.1 (1.0-2.1); ALBUMIN 3.3 g/dL (3.5-5.0); CALCIUM 8.7 mg/dl (8.6-10.4)
[2018-07-28] MEDS: Oxycodone/Acetaminophen 5/325 mg Tab PO PRN (09:25)
[2018-07-28] MEDS: MethylPREDNISolone 40 mg Vial IV SCH (09:28)
[2018-07-28] MEDS: Pantoprazole 40 mg EC Tab PO SCH (09:28)
--- NOTE | 2018-07-28 10:28 | CP.PCM.PN ---
Subjective - Date & Time of Evaluation Date of Evaluation: 07/28/18 Time of Evaluation: 10:25 - Subjective Subjective: Feels better post dialysis 07/27- tolerating well PD cath placed for outpatient PD Hg, Fe stores low will need arrangements for PD training as outpatient Objective - Vital Signs/Intake and Output Vital Signs (last 24 hours): Temp Pulse Resp BP Pulse Ox 98.4 F 88 20 147/71 96 07/28/18 07:40 07/28/18 07:40 07/28/18 07:40 07/28/18 09:29 07/28/18 07:40 Intake and Output: 07/28/18 07/28/18 06:59 18:59 Intake Total 330 Output Total 700 Balance -370 - Medications Medications: Current Medications Albuterol/Ipratropium (Duoneb 3 Mg/0.5 Mg (3 Ml) Ud) 3 ml IH RQ4 PRN PRN Reason: Shortness of Breath Last Admin: 07/26/18 19:36 Dose: 3 ml Amlodipine Besylate (Norvasc) 10 mg PO DAILY [facility] Last Admin: 07/28/18 09:29 Dose: 10 mg Calcitriol (Rocaltrol) 0.25 mcg PO DAILY [facility] Last Admin: 07/28/18 09:29 Dose: 0.25 mcg Dextrose (Dextrose 50% Inj) 0 ml IV STAT PRN; Protocol PRN Reason: Hypoglycemia Protocol Dextrose (Glutose 15) 0 gm PO ONCE PRN; Protocol PRN Reason: Hypoglycemia Protocol Docusate Sodium (Colace) 100 mg PO DAILY [facility] Last Admin: 07/28/18 09:27 Dose: 100 mg Epoetin Justino (Procrit) 10,000 unit IV MWF [facility] Last Admin: 07/27/18 17:04 Dose: 10,000 unit Folic Acid (Folic Acid) 1 mg PO DAILY [facility] Last Admin: 07/28/18 09:29 Dose: 1 mg Furosemide (Lasix) 40 mg PO DAILY [facility] Last Admin: 07/28/18 09:29 Dose: 40 mg Glucagon (Glucagen Diagnostic Kit) 0 mg IM STAT PRN; Protocol PRN Reason: Hypoglycemia Protocol Heparin Sodium (Porcine) (Heparin) 5,000 units SC Q12H [facility] Last Admin: 07/28/18 09:28 Dose: 5,000 units Dextrose (Dextrose 5% In Water 1000 Ml) 1,000 mls @ 0 mls/hr IV .Q0M PRN; Protocol PRN Reason: Hypoglycemia Protocol Insulin Human Regular (Novolin R) 0 unit SC ACHS [facility]; Protocol Last Admin: 07/28/18 08:00 Dose: 1 unit Methylprednisolone (Solu-Medrol) 30 mg IV DAILY [facility] Last Admin: 07/28/18 09:28 Dose: 30 mg Oxycodone/Acetaminophen (Percocet 5/325 Mg Tab) 1 tab PO Q4H PRN PRN Reason: Pain, moderate (4-7) Stop: 07/28/18 16:57 Last Admin: 07/28/18 09:25 Dose: 1 tab Pantoprazole Sodium (Protonix Ec Tab) 40 mg PO DAILY [facility] Last Admin: 07/28/18 09:28 Dose: 40 mg Rosuvastatin Calcium (Crestor) 5 mg PO HS [facility] Last Admin: 07/27/18 22:02 Dose: 5 mg - Labs Labs: 07/28/18 07:18 07/28/18 07:18 PT 13.0 SECONDS (9.7-12.2) H 07/27/18 06:34 INR 1.2 07/27/18 06:34 APTT 35 SECONDS (21-34) H 07/27/18 06:34 - Constitutional Appears: No Acute Distress, Chronically Ill - Head Exam Head Exam: ATRAUMATIC, NORMAL INSPECTION - Eye Exam Eye Exam: EOMI, Normal appearance - Neck Exam Neck Exam: Normal Inspection. absent: Tenderness - Respiratory Exam Respiratory Exam: Rhonchi, NORMAL BREATHING PATTERN - Cardiovascular Exam Cardiovascular Exam: REGULAR RHYTHM, +S1 - GI/Abdominal Exam GI & Abdominal Exam: Soft, Tenderness - Extremities Exam Extremities Exam: Normal Inspection. absent: Tenderness - Neurological Exam Neurological Exam: Awake, CN II-XII Intact - Skin Skin Exam: Dry, Warm Assessment and Plan (1) CKD (chronic kidney disease) stage 5, GFR less than 15 ml/min Status: Acute (2) CKD stage 5 secondary to hypertension Status: Acute (3) Pulmonary fibrosis Status: Acute (4) COPD exacerbation Status: Acute - Assessment and Plan (Free Text) Plan: dialysis MWF Add IV FE ESAs make arrangement for outpt dialysis
[2018-07-28] MEDS: Ferric Sodium Gluconat Complex 62.5 mg/5 ml Vial IVPB SCH (12:01)
[2018-07-28] MEDS: Albuterol-Ipratrop 3 mg / 0.5 (3 ml) UD IH PRN (16:28)
[2018-07-29] MEDS ORDERED: (Novolin R) Insulin Human Regular 100 units/ml vial SC ONE (02:20)
--- NOTE | 2018-07-29 07:15 | CP.PCM.PN ---
Subjective - Date & Time of Evaluation Date of Evaluation: 07/29/18 Time of Evaluation: 07:15 - Subjective Subjective: PGY1 Medicine Progress Note for Dr. Dias Patient was seen and evaluated at dialysis this morning. No acute events overnight. Patient has no complaints, though he continues to cough. Patient is otherwise denying chest pain, shortness of breath, abdominal pain, numbness/tingling in lower extremities, headache, dizziness, back pain, nausea, vomiting, fever and/or chills. Objective - Vital Signs/Intake and Output Vital Signs (last 24 hours): Temp Pulse Resp BP Pulse Ox 98.2 F 87 20 131/73 95 07/28/18 23:00 07/29/18 00:00 07/28/18 23:00 07/28/18 23:00 07/28/18 23:00 Intake and Output: 07/29/18 07/29/18 06:59 18:59 Intake Total 320 Output Total 450 Balance -130 - Medications Medications: Current Medications Albuterol/Ipratropium (Duoneb 3 Mg/0.5 Mg (3 Ml) Ud) 3 ml IH RQ4 PRN PRN Reason: Shortness of Breath Last Admin: 07/28/18 16:28 Dose: 3 ml Amlodipine Besylate (Norvasc) 10 mg PO DAILY [facility] Last Admin: 07/28/18 09:29 Dose: 10 mg Calcitriol (Rocaltrol) 0.25 mcg PO DAILY [facility] Last Admin: 07/28/18 09:29 Dose: 0.25 mcg Dextrose (Dextrose 50% Inj) 0 ml IV STAT PRN; Protocol PRN Reason: Hypoglycemia Protocol Dextrose (Glutose 15) 0 gm PO ONCE PRN; Protocol PRN Reason: Hypoglycemia Protocol Docusate Sodium (Colace) 100 mg PO DAILY [facility] Last Admin: 07/28/18 09:27 Dose: 100 mg Epoetin Justino (Procrit) 10,000 unit IV MWF [facility] Last Admin: 07/27/18 17:04 Dose: 10,000 unit Ferric Sodium Gluconate Complex (Ferrlecit) 125 mg IVPB Q24H [facility] Stop: 08/05/18 11:01 Last Admin: 07/28/18 12:01 Dose: 125 mg Folic Acid (Folic Acid) 1 mg PO DAILY [facility] Last Admin: 07/28/18 09:29 Dose: 1 mg Glipizide (Glucotrol) 2.5 mg PO ACB [facility] Glucagon (Glucagen Diagnostic Kit) 0 mg IM STAT PRN; Protocol PRN Reason: Hypoglycemia Protocol Heparin Sodium (Porcine) (Heparin) 5,000 units SC Q12H [facility] Last Admin: 07/28/18 22:16 Dose: 5,000 units Dextrose (Dextrose 5% In Water 1000 Ml) 1,000 mls @ 0 mls/hr IV .Q0M PRN; Protocol PRN Reason: Hypoglycemia Protocol Insulin Human Regular (Novolin R) 0 unit SC ACHS [facility]; Protocol Last Admin: 07/28/18 22:17 Dose: 2 unit Pantoprazole Sodium (Protonix Ec Tab) 40 mg PO DAILY [facility] Last Admin: 07/28/18 09:28 Dose: 40 mg Rosuvastatin Calcium (Crestor) 5 mg PO HS [facility] Last Admin: 07/28/18 22:15 Dose: 5 mg - Labs Labs: 07/28/18 07:18 07/28/18 07:18 PT 13.0 SECONDS (9.7-12.2) H 07/27/18 06:34 INR 1.2 07/27/18 06:34 APTT 35 SECONDS (21-34) H 07/27/18 06:34 Assessment and Plan - Assessment and Plan (Free Text) Assessment: 82M with a PMHx of CKD admitted s/p permacath 07/25, and peritoneal dialysis cath 07/27 w/ Oleg and 1st time dialysis. Patient has now had 3 sessions total, and is currently pending discharge; pending out-patient dialysis placement. Cough likely secondary to COPD Exacerbation - Duonebs q4h prn - Lasix 40mg po daily - 07/26 CXR appears VC improving - Patient with tachycardia and leukocytosis - F/U Sputum culture - F/U Blood cultures - F/U Urinalysis - F/U Influenza A/B - Antibiotics: Zosyn 2.25g in 50mL IVPB Q8H - Hepatitis panel negative CKD Stage 5 - BUN/Cr monitored - Dialysis today (3rd session) - GFR: 14 - Dr. Dejesus consulted for dialysis access, help appreciated - Dr. Dutton consulted, help appreciated -Dialyze today and Discharge is pending out-patient dialysis placement - Patient tolerated breathing treatments and lasix, - Hepatitis panel negative - Calcitriol 0.25mcg po daily - Folic acid 1mg po daily History of COPD - Continue Duonebs q4h prn - Patient reports he only uses albuterol as needed BID - Called pharmacy to confirm COPD medication: Patient is prescribed simbacort inhaler DM TYpe 2 - HgA1C: 9.3 - Hold glimepiride - Accuchecks - ISS - Hypoglycemia protocol HTN - Amlodipine 10mg po daily HLD - Simvastatin NF - Crestor 5mg po HS Prophylaxis - SCDs, Heparin 5000units SC Q12H - Protonix 40mg po daily - renal low carb diet Patient seen and case discussed with Dr. Arun Burks PGY1
[2018-07-29] MEDS ORDERED: GlipiZIDE 2.5 mg Tab PO SCH (07:30)
[2018-07-29 07:51] LABS: ALB/GLOB RATIO 1.2 (1.0-2.1); ALBUMIN 3.2 g/dL (3.5-5.0); ALT/SGPT < 6 U/L (21-72); AST/SGOT 18 U/L (17-59); BLOOD UREA NITROGEN 58 mg/dL (9-20); CALCIUM 8.7 mg/dl (8.6-10.4); GFR NON-AFRICAN AMERICAN 17
[2018-07-29] MEDS: (Novolin R) Insulin Human Regular 100 units/ml vial SC SCH ×4 (08:03→22:05)
[2018-07-29] MEDS: Ferric Sodium Gluconat Complex 62.5 mg/5 ml Vial IVPB SCH (11:25)
[2018-07-29 12:42] LABS: BASO # 0.1 K/uL (0.0-0.2); BASO % 0.3 % (0.0-2.0); EOS # 0.1 K/uL (0.0-0.7); EOS % 0.2 % (0.0-4.0); HEMOGLOBIN 9.7 g/dL (12.0-18.0); LYMPH # 0.7 K/uL (1.0-4.3); LYMPH % 2.7 % (20.0-40.0); MEAN CELL VOLUME 94.3 fL (80.0-94.0); MEAN CORPUSCULAR HEMOGLOBIN 32.3 pg (27.0-31.0); MEAN CORPUSCULAR HGB CONC 34.3 g/dL (33.0-37.0); MONO # 1.4 K/uL (0.0-0.8); MONO % 5.4 % (0.0-10.0); NEUT # 23.5 K/uL (1.8-7.0); NEUT % 91.4 % (50.0-75.0); PLATELET COUNT 174 K/uL (130-400)
[2018-07-29] MEDS: Epoetin Alfa 10,000 unit/ml Dialysis IV SCH (12:42)
[2018-07-29 12:47] LABS: WHITE BLOOD COUNT 25.7 K/uL (4.8-10.8)
[2018-07-29 13:02] LABS: BANDS 2 % (0-2); LYMPHOCYTE 2 % (20-40); MONOCYTE 6 % (0-10); NEUTROPHIL 90 % (50-75); PLATELET ESTIMATE NORMAL (NORMAL); TOTAL CELLS COUNTED 100
[2018-07-29 13:03] LABS: ANISOCYTOSIS SLIGHT
--- NOTE | 2018-07-29 13:46 | CP.PCM.PN ---
Subjective - Date & Time of Evaluation Date of Evaluation: 07/29/18 Time of Evaluation: 13:43 - Subjective Subjective: seen at dialysis UF 1500ml increased leukocytosis noted Hg better- -on IV FE, EPO less dyspneic , still with sputum at times Objective - Vital Signs/Intake and Output Vital Signs (last 24 hours): Temp Pulse Resp BP Pulse Ox 97.7 F 101 H 18 130/69 95 07/29/18 12:40 07/29/18 12:40 07/29/18 12:40 07/29/18 12:40 07/29/18 12:40 Intake and Output: 07/29/18 07/29/18 06:59 18:59 Intake Total 320 Output Total 850 Balance -530 - Medications Medications: Current Medications Albuterol/Ipratropium (Duoneb 3 Mg/0.5 Mg (3 Ml) Ud) 3 ml IH RQ4 PRN PRN Reason: Shortness of Breath Last Admin: 07/28/18 16:28 Dose: 3 ml Amlodipine Besylate (Norvasc) 10 mg PO DAILY [facility] Last Admin: 07/28/18 09:29 Dose: 10 mg Calcitriol (Rocaltrol) 0.25 mcg PO DAILY [facility] Last Admin: 07/28/18 09:29 Dose: 0.25 mcg Dextrose (Dextrose 50% Inj) 0 ml IV STAT PRN; Protocol PRN Reason: Hypoglycemia Protocol Dextrose (Glutose 15) 0 gm PO ONCE PRN; Protocol PRN Reason: Hypoglycemia Protocol Docusate Sodium (Colace) 100 mg PO DAILY [facility] Last Admin: 07/29/18 10:00 Dose: Not Given Epoetin Justino (Procrit) 10,000 unit IV MWF [facility] Last Admin: 07/29/18 12:42 Dose: 10,000 unit Ferric Sodium Gluconate Complex (Ferrlecit) 125 mg IVPB Q24H [facility] Stop: 08/05/18 11:01 Last Admin: 07/29/18 11:25 Dose: 125 mg Folic Acid (Folic Acid) 1 mg PO DAILY [facility] Last Admin: 07/28/18 09:29 Dose: 1 mg Glipizide (Glucotrol) 2.5 mg PO ACB [facility] Glucagon (Glucagen Diagnostic Kit) 0 mg IM STAT PRN; Protocol PRN Reason: Hypoglycemia Protocol Heparin Sodium (Porcine) (Heparin) 5,000 units SC Q12H [facility] Last Admin: 07/29/18 10:00 Dose: Not Given Dextrose (Dextrose 5% In Water 1000 Ml) 1,000 mls @ 0 mls/hr IV .Q0M PRN; Protocol PRN Reason: Hypoglycemia Protocol Insulin Human Regular (Novolin R) 0 unit SC ACHS [facility]; Protocol Last Admin: 07/29/18 08:03 Dose: 2 unit Pantoprazole Sodium (Protonix Ec Tab) 40 mg PO DAILY [facility] Last Admin: 07/28/18 09:28 Dose: 40 mg Rosuvastatin Calcium (Crestor) 5 mg PO HS [facility] Last Admin: 07/28/18 22:15 Dose: 5 mg - Labs Labs: 07/29/18 12:38 07/29/18 06:51 PT 13.0 SECONDS (9.7-12.2) H 07/27/18 06:34 INR 1.2 07/27/18 06:34 APTT 35 SECONDS (21-34) H 07/27/18 06:34 - Constitutional Appears: No Acute Distress, Chronically Ill - Head Exam Head Exam: ATRAUMATIC, NORMAL INSPECTION - Eye Exam Eye Exam: EOMI, Normal appearance - Neck Exam Neck Exam: Normal Inspection. absent: Tenderness - Respiratory Exam Respiratory Exam: Clear to Ausculation Bilateral, NORMAL BREATHING PATTERN - Cardiovascular Exam Cardiovascular Exam: REGULAR RHYTHM, +S1 - GI/Abdominal Exam GI & Abdominal Exam: Soft. absent: Tenderness - Extremities Exam Extremities Exam: Normal Inspection. absent: Tenderness - Neurological Exam Neurological Exam: Awake, CN II-XII Intact - Skin Skin Exam: Dry, Warm Assessment and Plan (1) CKD (chronic kidney disease) stage 5, GFR less than 15 ml/min Status: Acute (2) CKD stage 5 secondary to hypertension Status: Acute (3) Pulmonary fibrosis Status: Acute (4) COPD exacerbation Status: Acute (5) ESRD (end stage renal disease) Status: Acute - Assessment and Plan (Free Text) Plan: same dialysis MWF EPO, IV Fe decrease less UF- cough due to pulm fibrosis as well leukocytosis worrisome- blood C+S
[2018-07-29] MEDS: Pantoprazole 40 mg EC Tab PO SCH (14:02)
--- NOTE | 2018-07-29 16:47 | RAD ---
Date of service: 07/29/2018 HISTORY: leukocytosis COMPARISON: 07/26/2018 FINDINGS: LUNGS: Patchy opacity at left base. Infiltrate versus atelectasis. PLEURA: Possible small bilateral pleural effusion. No pneumothorax. CARDIOVASCULAR: Atherosclerotic calcification is noted in the aortic arch. Normal cardiac size. No congestive change. Tunneled right central venous dialysis catheter OSSEOUS STRUCTURES: No significant abnormalities. VISUALIZED UPPER ABDOMEN: Normal. OTHER FINDINGS: None. IMPRESSION: Patchy opacity at left base. Possible left lower lobe infiltrate versus atelectasis. Possible small bilateral pleural effusion
[2018-07-29] MEDS ORDERED: POLYETHYLENE GLYCOL 3350 17 GM/Dose PACKET PO ONE (17:38)
[2018-07-29] MEDS: Piperacill/Tazo 2.25gm in Dex 2.25 GM/50 ML BAG IVPB SCH (17:54)
[2018-07-29] MEDS: Albuterol-Ipratrop 3 mg / 0.5 (3 ml) UD IH SCH (19:29)
[2018-07-29] MEDS: MethylPREDNISolone 40 mg Vial IVP SCH (22:04)
[2018-07-29] MEDS: (Lantus) Insulin Glargine, Recombinant SC SCH (22:05)
[2018-07-30] MEDS: Piperacill/Tazo 2.25gm in Dex 2.25 GM/50 ML BAG IVPB SCH ×3 (00:46→17:22)
[2018-07-30 07:19] LABS: BASO % 0.1 % (0.0-2.0); HEMOGLOBIN 9.2 g/dL (12.0-18.0); LYMPH # 0.3 K/uL (1.0-4.3); LYMPH % 2.2 % (20.0-40.0); MEAN CORPUSCULAR HGB CONC 33.4 g/dL (33.0-37.0); MEAN PLATELET VOLUME 8.1 fL (7.2-11.7); MONO # 0.2 K/uL (0.0-0.8); MONO % 1.3 % (0.0-10.0); NEUT # 12.4 K/uL (1.8-7.0); NEUT % 96.4 % (50.0-75.0); NRBC % 0.1 % (0.0-2.0); PLATELET COUNT 149 K/uL (130-400); RBC 2.86 Mil/uL (4.40-5.90); RED CELL DISTRIBUTION WIDTH 16.4 % (11.5-14.5); WHITE BLOOD COUNT 12.9 K/uL (4.8-10.8)
[2018-07-30] MEDS: Albuterol-Ipratrop 3 mg / 0.5 (3 ml) UD IH SCH ×3 (07:28→19:37)
[2018-07-30 08:14] LABS: ALB/GLOB RATIO 1.1 (1.0-2.1); ALBUMIN 3.4 g/dL (3.5-5.0)
[2018-07-30] MEDS: (Novolin R) Insulin Human Regular 100 units/ml vial SC SCH ×4 (08:20→21:48)
[2018-07-30 08:27] LABS: SQUAMOUS EPITHIAL 3 /hpf (0-5); URINE BACTERIA RARE (<OCC)
[2018-07-30 08:28] LABS: URINE BILIRUBIN NEGATIVE (NEGATIVE); URINE BLOOD NEGATIVE (NEGATIVE); URINE CLARITY Clear (Clear); URINE COLOR Yellow (YELLOW); URINE GLUCOSE (UA) 2+ mg/dL (Normal); URINE LEUKOCYTE ESTERASE NEG Leu/uL (Negative); URINE PROTEIN 2+ mg/dL (NEGATIVE); URINE UROBILINOGEN NORMAL mg/dL (0.2-1.0)
--- NOTE | 2018-07-30 08:30 | CP.PCM.PN ---
<Sanjay Burks - Last Filed: 07/30/18 13:20> Subjective - Date & Time of Evaluation Date of Evaluation: 07/30/18 Time of Evaluation: 08:29 - Subjective Subjective: PGY1 Medicine Progress Note for Dr. Vickie Carrillo Patient was seen and evaluated at bedside this morning. No acute events overnight. No current complaints. Patient tolerating diet. Patient continues to have cough. Patient otherwise denies chest pain, abdominal pain, shortness of breath, back pain, lower extremity pain, numbness/tingling, dizziness, headache, nausea, vomiting, fever, and/or chills. Objective - Vital Signs/Intake and Output Vital Signs (last 24 hours): Temp Pulse Resp BP Pulse Ox 98.6 F 88 20 126/63 98 07/30/18 07:00 07/30/18 07:00 07/30/18 07:00 07/30/18 07:00 07/30/18 07:00 Intake and Output: 07/30/18 07/30/18 06:59 18:59 Intake Total 160 Output Total 300 Balance -140 - Medications Medications: Current Medications Albuterol/Ipratropium (Duoneb 3 Mg/0.5 Mg (3 Ml) Ud) 3 ml IH RQ6 [facility] Last Admin: 07/30/18 07:28 Dose: 3 ml Amlodipine Besylate (Norvasc) 10 mg PO DAILY [facility] Last Admin: 07/29/18 14:02 Dose: 10 mg Calcitriol (Rocaltrol) 0.25 mcg PO DAILY [facility] Last Admin: 07/29/18 14:02 Dose: 0.25 mcg Dextrose (Dextrose 50% Inj) 0 ml IV STAT PRN; Protocol PRN Reason: Hypoglycemia Protocol Dextrose (Glutose 15) 0 gm PO ONCE PRN; Protocol PRN Reason: Hypoglycemia Protocol Docusate Sodium (Colace) 100 mg PO DAILY [facility] Last Admin: 07/29/18 10:00 Dose: Not Given Epoetin Justino (Procrit) 10,000 unit IV MWF [facility] Last Admin: 07/29/18 12:42 Dose: 10,000 unit Ferric Sodium Gluconate Complex (Ferrlecit) 125 mg IVPB Q24H [facility] Stop: 08/05/18 11:01 Last Admin: 07/29/18 11:25 Dose: 125 mg Folic Acid (Folic Acid) 1 mg PO DAILY [facility] Last Admin: 07/29/18 14:01 Dose: 1 mg Glucagon (Glucagen Diagnostic Kit) 0 mg IM STAT PRN; Protocol PRN Reason: Hypoglycemia Protocol Heparin Sodium (Porcine) (Heparin) 5,000 units SC Q12H [facility] Last Admin: 07/29/18 22:04 Dose: 5,000 units Dextrose (Dextrose 5% In Water 1000 Ml) 1,000 mls @ 0 mls/hr IV .Q0M PRN; P rotocol PRN Reason: Hypoglycemia Protocol Piperacillin Sod/Tazobactam Sod (Zosyn 2.25 Gm Iv Premix) 2.25 gm in 50 mls @ 100 mls/hr IVPB Q8H [facility]; Protocol Last Admin: 07/30/18 08:21 Dose: 100 mls/hr Insulin Glargine (Lantus) 10 unit SC [facility] Last Admin: 07/29/18 22:05 Dose: 10 units Insulin Human Regular (Novolin R) 0 unit SC ACHS [facility]; Protocol Last Admin: 07/30/18 08:20 Dose: 1 unit Methylprednisolone (Solu-Medrol) 40 mg IVP Q12 [facility] Last Admin: 07/29/18 22:04 Dose: 40 mg Pantoprazole Sodium (Protonix Ec Tab) 40 mg PO DAILY [facility] Last Admin: 07/29/18 14:02 Dose: 40 mg Rosuvastatin Calcium (Crestor) 5 mg PO HS [facility] Last Admin: 07/29/18 22:04 Dose: 5 mg - Labs Labs: 07/30/18 07:02 07/30/18 07:02 PT 13.0 SECONDS (9.7-12.2) H 07/27/18 06:34 INR 1.2 07/27/18 06:34 APTT 35 SECONDS (21-34) H 07/27/18 06:34 Assessment and Plan - Assessment and Plan (Free Text) Assessment: 82M with a PMHx of CKD admitted s/p permacath 07/25, and peritoneal dialysis cath 07/27 w/ Oleg and 1st time dialysis. Patient has now had 3 sessions total, and is currently pending discharge; pending out-patient dialysis placement. Cough likely secondary to COPD Exacerbation - Continue Duonebs q4h prn - Continue Lasix 40mg po daily - 07/29 CXR: patchy opacity at the left base/left lower lung infiltrate vs atelectasis, small bilateral pleural effusion (see official report) - Vanco 1mg x1 dose ordered - Solumedrol 40mg Q12H - Patient with tachycardia and leukocytosis - 2/ Sputum culture: no growth - F/U Blood cultures - Urinalysis: unremarkable - Influenza A/B: negative - Antibiotics: Zosyn 2.25g in 50mL IVPB Q8H - Hepatitis panel negative CKD Stage 5 - BUN/Cr monitored - Dialysis (Patient completed 3 sessions) - GFR: 14 - Dr. Dejesus consulted for dialysis access, help appreciated - Dr. Dutton consulted, help appreciated -Dialyze today and Discharge is pending out-patient dialysis placement - Patient tolerated breathing treatments and lasix, - Hepatitis panel negative - Calcitriol 0.25mcg po daily - Folic acid 1mg po daily History of COPD - Continue Duonebs q4h prn - Patient reports he only uses albuterol as needed BID - Called pharmacy to confirm COPD medication: Patient is prescribed simbacort inhaler DM TYpe 2 - HgA1C: 9.3 - Hold glimepiride - Accuchecks - ISS - Hypoglycemia protocol HTN - Amlodipine 10mg po daily HLD - Simvastatin NF - Crestor 5mg po HS Prophylaxis - SCDs, Heparin 5000units SC Q12H - Protonix 40mg po daily - renal low carb diet Patient seen and case discussed with Dr. Vickie Burks PGY1 <Marty Carrillo - Last Filed: 07/30/18 18:51> Objective - Vital Signs/Intake and Output Vital Signs (last 24 hours): Temp Pulse Resp BP Pulse Ox 97.7 F 105 H 20 114/66 97 07/30/18 16:00 07/30/18 16:00 07/30/18 16:00 07/30/18 16:00 07/30/18 16:00 Intake and Output: 07/30/18 07/30/18 06:59 18:59 Intake Total 160 Output Total 300 Balance -140 - Medications Medications: Current Medications Albuterol/Ipratropium (Duoneb 3 Mg/0.5 Mg (3 Ml) Ud) 3 ml IH RQ6 [facility] Last Admin: 07/30/18 13:46 Dose: 3 ml Amlodipine Besylate (Norvasc) 10 mg PO DAILY [facility] Last Admin: 07/30/18 09:39 Dose: 10 mg Calcitriol (Rocaltrol) 0.25 mcg PO DAILY [facility] Last Admin: 07/30/18 09:38 Dose: 0.25 mcg Dextrose (Dextrose 50% Inj) 0 ml IV STAT PRN; Protocol PRN Reason: Hypoglycemia Protocol Dextrose (Glutose 15) 0 gm PO ONCE PRN; Protocol PRN Reason: Hypoglycemia Protocol Docusate Sodium (Colace) 100 mg PO DAILY [facility] Last Admin: 07/30/18 09:38 Dose: 100 mg Epoetin Justino (Procrit) 10,000 unit IV MWF [facility] Last Admin: 07/29/18 12:42 Dose: 10,000 unit Ferric Sodium Gluconate Complex (Ferrlecit) 125 mg IVPB Q24H [facility] Stop: 08/05/18 11:01 Last Admin: 07/30/18 11:47 Dose: 125 mg Folic Acid (Folic Acid) 1 mg PO DAILY [facility] Last Admin: 07/30/18 09:38 Dose: 1 mg Glucagon (Glucagen Diagnostic Kit) 0 mg IM STAT PRN; Protocol PRN Reason: Hypoglycemia Protocol Heparin Sodium (Porcine) (Heparin) 5,000 units SC Q12H [facility] Last Admin: 07/30/18 09:39 Dose: 5,000 units Dextrose (Dextrose 5% In Water 1000 Ml) 1,000 mls @ 0 mls/hr IV .Q0M PRN; Protocol PRN Reason: Hypoglycemia Protocol Piperacillin Sod/Tazobactam Sod (Zosyn 2.25 Gm Iv Premix) 2.25 gm in 50 mls @ 100 mls/hr IVPB Q8H [facility]; Protocol Last Admin: 07/30/18 17:22 Dose: 100 mls/hr Insulin Glargine (Lantus) 10 unit SC HS [facility] Last Admin: 07/29/18 22:05 Dose: 10 units Insulin Human Regular (Novolin R) 0 unit SC ACHS [facility]; Protocol Last Admin: 07/30/18 17:21 Dose: 6 unit Methylprednisolone (Solu-Medrol) 40 mg IVP Q12 [facility] Last Admin: 07/30/18 09:38 Dose: 40 mg Pantoprazole Sodium (Protonix Ec Tab) 40 mg PO DAILY [facility] Last Admin: 07/30/18 09:38 Dose: 40 mg Rosuvastatin Calcium (Crestor) 5 mg PO HS [facility] Last Admin: 07/29/18 22:04 Dose: 5 mg - Labs Labs: 07/30/18 07:02 07/30/18 07:02 PT 13.0 SECONDS (9.7-12.2) H 07/27/18 06:34 INR 1.2 07/27/18 06:34 APTT 35 SECONDS (21-34) H 07/27/18 06:34 Attending/Attestation - Attestation I have personally seen and examined this patient.: Yes I have fully participated in the care of the patient.: Yes I have reviewed all pertinent clinical information, including history, physical exam and plan: Yes Notes (Text): 07/30/18 18:43 Hospitalist Progress Note Care of this patient was gone over in detail with resident. Patient was seen and examined at 8 AM Upon FULL ROS: cough with occasional production of yellow material breathing without difficulty on 2L O2 via NC moved his bowels normally this morning NO dysphagia NO CP NO abdominal pain: some "mild pressure" like sensation at the site of peritoneal dialysis catheter insertion soreness at the sight of right chest permacatheter Also on Exam: Bilateral mid to lower lung inspiratory crackles Assessments: 1). CKD Stage 5 requiring Dialysis 2). Possible LLL infiltrate 3). Hx DM 2 4). Hx HTN 5). Hx HLD 6). Hx COPD 7). Hx Anemia Chronic Disease Repeat Chest X Ray PA and Lateral on Wednesday08/01/18 after HD to check to see if the LLL infiltrate seen on Chest X Ray 07/29/18 is a true infiltrate or not. He is currently on renally dosed Vancomycin and Zosyn to cover for the possibility of LLL infiltrate. F/U Blood Culture 07/29/18 F/U Urine Culture 07/29/18 F/U Sputum Culture 07/29/18 If patient's breathing continues to improve, then STOP the IV Solumedrol and start 5 day taper of Prednisone: 50 [id number] Perform SPO2 before and after 6 minute walk after HD on 08/01/18 F/U Lasting Machine Operator [facility] [place] on 08/01/18 for update on placement/education for outpatient Peritoneal Dialysis Marty Carrillo D.O.
[2018-07-30] MEDS: Pantoprazole 40 mg EC Tab PO SCH (09:38)
[2018-07-30] MEDS: MethylPREDNISolone 40 mg Vial IVP SCH ×2 (09:38→21:44)
[2018-07-30 10:30] LABS: BANDS 1 % (0-2); LYMPHOCYTE 3 % (20-40); MONOCYTE 2 % (0-10); NEUTROPHIL 94 % (50-75); NUCLEATED RED BLOOD CELL 1 % (0-0); TOTAL CELLS COUNTED 100
[2018-07-30 10:31] LABS: ANISOCYTOSIS SLIGHT; BURR CELLS SLIGHT; OVALOCYTES SLIGHT; PLATELET ESTIMATE NORMAL (NORMAL); POIKILOCYTOSIS SLIGHT
--- NOTE | 2018-07-30 11:42 | CP.PCM.PN ---
Subjective - Date & Time of Evaluation Date of Evaluation: 07/30/18 Time of Evaluation: 11:41 - Subjective Subjective: feels still congested no pain appetite fair decreased urine no rash no abdominal pain no palpitations no fever no headache +cough Objective - Vital Signs/Intake and Output Vital Signs (last 24 hours): Temp Pulse Resp BP Pulse Ox 98.6 F 99 H 20 126/72 98 07/30/18 07:00 07/30/18 09:40 07/30/18 07:00 07/30/18 09:40 07/30/18 07:00 Intake and Output: 07/30/18 07/30/18 06:59 18:59 Intake Total 160 Output Total 300 Balance -140 - Medications Medications: Current Medications Albuterol/Ipratropium (Duoneb 3 Mg/0.5 Mg (3 Ml) Ud) 3 ml IH RQ6 [facility] Last Admin: 07/30/18 07:28 Dose: 3 ml Amlodipine Besylate (Norvasc) 10 mg PO DAILY [facility] Last Admin: 07/30/18 09:39 Dose: 10 mg Calcitriol (Rocaltrol) 0.25 mcg PO DAILY [facility] Last Admin: 07/30/18 09:38 Dose: 0.25 mcg Dextrose (Dextrose 50% Inj) 0 ml IV STAT PRN; Protocol PRN Reason: Hypoglycemia Protocol Dextrose (Glutose 15) 0 gm PO ONCE PRN; Protocol PRN Reason: Hypoglycemia Protocol Docusate Sodium (Colace) 100 mg PO DAILY [facility] Last Admin: 07/30/18 09:38 Dose: 100 mg Epoetin Justino (Procrit) 10,000 unit IV MWF [facility] Last Admin: 07/29/18 12:42 Dose: 10,000 unit Ferric Sodium Gluconate Complex (Ferrlecit) 125 mg IVPB Q24H [facility] Stop: 08/05/18 11:01 Last Admin: 07/29/18 11:25 Dose: 125 mg Folic Acid (Folic Acid) 1 mg PO DAILY [facility] Last Admin: 07/30/18 09:38 Dose: 1 mg Glucagon (Glucagen Diagnostic Kit) 0 mg IM STAT PRN; Protocol PRN Reason: Hypoglycemia Protocol Heparin Sodium (Porcine) (Heparin) 5,000 units SC Q12H [facility] Last Admin: 07/30/18 09:39 Dose: 5,000 units Dextrose (Dextrose 5% In Water 1000 Ml) 1,000 mls @ 0 mls/hr IV .Q0M PRN; Protocol PRN Reason: Hypoglycemia Protocol Piperacillin Sod/Tazobactam Sod (Zosyn 2.25 Gm Iv Premix) 2.25 gm in 50 mls @ 100 mls/hr IVPB Q8H [facility]; Protocol Last Admin: 07/30/18 08:21 Dose: 100 mls/hr Insulin Glargine (Lantus) 10 unit SC [facility] Last Admin: 07/29/18 22:05 Dose: 10 units Insulin Human Regular (Novolin R) 0 unit SC ACHS [facility]; Protocol Last Admin: 07/30/18 08:20 Dose: 1 unit Methylprednisolone (Solu-Medrol) 40 mg IVP Q12 [facility] Last Admin: 07/30/18 09:38 Dose: 40 mg Pantoprazole Sodium (Protonix Ec Tab) 40 mg PO DAILY [facility] Last Admin: 07/30/18 09:38 Dose: 40 mg Rosuvastatin Calcium (Crestor) 5 mg PO [facility] Last Admin: 07/29/18 22:04 Dose: 5 mg - Labs Labs: 07/30/18 07:02 07/30/18 07:02 PT 13.0 SECONDS (9.7-12.2) H 07/27/18 06:34 INR 1.2 07/27/18 06:34 APTT 35 SECONDS (21-34) H 07/27/18 06:34 - Constitutional Appears: Non-toxic, Chronically Ill - Head Exam Head Exam: ATRAUMATIC, NORMAL INSPECTION - Eye Exam Eye Exam: EOMI - ENT Exam ENT Exam: Mucous Membranes Moist - Neck Exam Neck Exam: Full ROM. absent: Lymphadenopathy - Respiratory Exam Respiratory Exam: Rhonchi. absent: Wheezes - Cardiovascular Exam Cardiovascular Exam: REGULAR RHYTHM. absent: Rubs - GI/Abdominal Exam GI & Abdominal Exam: Soft. absent: Tenderness - Extremities Exam Extremities Exam: absent: Pedal Edema - Neurological Exam Neurological Exam: Awake, Oriented x3 Assessment and Plan - Assessment and Plan (Free Text) Assessment: new esrd, for PD bronchitis vs pneumonia, on AB wbc decreasing maint HD for now
[2018-07-30] MEDS: Ferric Sodium Gluconat Complex 62.5 mg/5 ml Vial IVPB SCH (11:47)
--- NOTE | 2018-07-30 18:53 | CP.PCM.PCO ---
Physician Communication Note - Physician Communication Note Physician Communication Note: Please see above
[2018-07-30] MEDS: Vancomycin 1 gm/NS 200 ml 1 GM/200 ML BAG IVPB SCH (20:45)
[2018-07-30] MEDS: (Lantus) Insulin Glargine, Recombinant SC SCH (21:43)
[2018-07-31] MEDS: Piperacill/Tazo 2.25gm in Dex 2.25 GM/50 ML BAG IVPB SCH ×3 (01:36→18:22)
[2018-07-31] MEDS ORDERED: (Novolin R) Insulin Human Regular 100 units/ml vial SC ONE (02:30)
[2018-07-31] MEDS: Albuterol-Ipratrop 3 mg / 0.5 (3 ml) UD IH SCH ×3 (07:49→20:06)
--- NOTE | 2018-07-31 08:28 | CP.PCM.PN ---
<Sanjay Burks - Last Filed: 07/31/18 08:24> Subjective - Date & Time of Evaluation Date of Evaluation: 07/31/18 Time of Evaluation: 08:24 - Subjective Subjective: PGY1 Medicine Progress Note for Dr. Bosch Patient was seen and evaluated at bedside this morning. No acute events overnight. No current complaints. Patient tolerating diet. Patient continues to have cough. Patient otherwise denies chest pain, abdominal pain, shortness of breath, back pain, lower extremity pain, numbness/tingling, dizziness, headache, nausea, vomiting, fever, and/or chills. Objective - Vital Signs/Intake and Output Vital Signs (last 24 hours): Temp Pulse Resp BP Pulse Ox 98.1 F 92 H 20 148/70 96 07/30/18 23:00 07/31/18 05:01 07/30/18 23:00 07/30/18 23:00 07/30/18 23:00 Intake and Output: 07/31/18 07/31/18 06:59 18:59 Intake Total 570 Output Total 0 Balance 570 - Medications Medications: Current Medications Albuterol/Ipratropium (Duoneb 3 Mg/0.5 Mg (3 Ml) Ud) 3 ml IH RQ6 [facility] Last Admin: 07/30/18 19:37 Dose: 3 ml Amlodipine Besylate (Norvasc) 10 mg PO DAILY [facility] Last Admin: 07/30/18 09:39 Dose: 10 mg Calcitriol (Rocaltrol) 0.25 mcg PO DAILY [facility] Last Admin: 07/30/18 09:38 Dose: 0.25 mcg Dextrose (Dextrose 50% Inj) 0 ml IV STAT PRN; Protocol PRN Reason: Hypoglycemia Protocol Dextrose (Glutose 15) 0 gm PO ONCE PRN; Protocol PRN Reason: Hypoglycemia Protocol Docusate Sodium (Colace) 100 mg PO DAILY [facility] Last Admin: 07/30/18 09:38 Dose: 100 mg Epoetin Justino (Procrit) 10,000 unit IV MWF [facility] Last Admin: 07/29/18 12:42 Dose: 10,000 unit Ferric Sodium Gluconate Complex (Ferrlecit) 125 mg IVPB Q24H [facility] Stop: 08/05/18 11:01 Last Admin: 07/30/18 11:47 Dose: 125 mg Folic Acid (Folic Acid) 1 mg PO DAILY [facility] Last Admin: 07/30/18 09:38 Dose: 1 mg Glucagon (Glucagen Diagnostic Kit) 0 mg IM STAT PRN; Protocol PRN Reason: Hypoglycemia Protocol Dextrose (Dextrose 5% In Water 1000 Ml) 1,000 mls @ 0 mls/hr IV .Q0M PRN; Protocol PRN Reason: Hypoglycemia Protocol Piperacillin Sod/Tazobactam Sod (Zosyn 2.25 Gm Iv Premix) 2.25 gm in 50 mls @ 100 mls/hr IVPB Q8H [facility]; Protocol Last Admin: 07/31/18 01:36 Dose: 100 mls/hr Vancomycin/Sodium Chloride (Vancomycin 1 Gm/Ns 200 Ml) 1 gm in 200 mls @ 133.333 mls/hr IVPB Q24H [facility]; Protocol Last Admin: 07/30/18 20:45 Dose: 133.333 mls/hr Insulin Glargine (Lantus) 10 unit SC HS [facility] Last Admin: 07/30/18 21:43 Dose: 10 units Insulin Human Regular (Novolin R) 0 unit SC ACHS [facility]; Protocol Last Admin: 07/30/18 21:48 Dose: 3 unit Methylprednisolone (Solu-Medrol) 40 mg IVP Q12 [facility] Last Admin: 07/30/18 21:44 Dose: 40 mg Pantoprazole Sodium (Protonix Ec Tab) 40 mg PO DAILY [facility] Last Admin: 07/30/18 09:38 Dose: 40 mg Rosuvastatin Calcium (Crestor) 5 mg PO HS [facility] Last Admin: 07/30/18 21:43 Dose: 5 mg - Labs Labs: 07/30/18 07:02 07/30/18 07:02 PT 13.0 SECONDS (9.7-12.2) H 07/27/18 06:34 INR 1.2 07/27/18 06:34 APTT 35 SECONDS (21-34) H 07/27/18 06:34 - Additional Findings Additional findings: - Constitutional Appears: Non-toxic, No Acute Distress - Head Exam Head Exam: NORMAL INSPECTION - Eye Exam Eye Exam: Normal appearance Pupil Exam: PERRL - ENT Exam ENT Exam: Mucous Membranes Moist, Normal Exam - Neck Exam Neck Exam: Full ROM (chest permcath), Normal Inspection - Respiratory Exam Respiratory Exam: Decreased Breath Sounds, Rhonchi lower [place] - Cardiovascular Exam Cardiovascular Exam: REGULAR RHYTHM - GI/Abdominal Exam GI & Abdominal Exam: Soft, Normal Bowel Sounds, L abdomen, peritoneal dialysis cath covered w bandage - Extremities Exam Extremities Exam: Full ROM, Normal Inspection - Neurological Exam Neurological Exam: Alert, Awake, Oriented x3 - Skin Skin Exam: Dry, Intact Assessment and Plan - Assessment and Plan (Free Text) Assessment: 82M with a PMHx of CKD admitted s/p permacath 07/25, and peritoneal dialysis cath 07/27 w/ Oleg and 1st time dialysis. Patient has now had 3 sessions total, and is currently pending discharge; pending out-patient dialysis placement. Cough likely secondary to COPD Exacerbation - Will repeat CXR tomorrow following dialysis - Assess for home-O2 tomorrow following dialysis tomorrow - Continue Duonebs q4h prn - Continue Lasix 40mg po daily - 07/29 CXR: patchy opacity at the left base/left lower lung infiltrate vs atelectasis, small bilateral pleural effusion (see official report) - Vanco 1mg x1 dose ordered - Solumedrol 40mg Q12H - Patient with tachycardia and leukocytosis - 07/29 Sputum culture: no growth - F/U Blood cultures - Urinalysis: unremarkable - Influenza A/B: negative - Antibiotics: Zosyn 2.25g in 50mL IVPB Q8H - Hepatitis panel negative CKD Stage 5 - BUN/Cr monitored - Dialysis (Patient completed 3 sessions) - Dialysis scheduled for tomorrow. - GFR: 14 - Dr. Dejesus consulted for dialysis access, help appreciated - Dr. Dutton consulted, help appreciated -Dialyze today and Discharge is pending out-patient dialysis placement - Patient tolerated breathing treatments and lasix, - Hepatitis panel negative - Calcitriol 0.25mcg po daily - Folic acid 1mg po daily History of COPD - Continue Duonebs q4h PRN - Patient reports he only uses albuterol as needed BID - Called pharmacy to confirm COPD medication: Patient is prescribed simbacort inhaler DM TYPE 2 - HgA1C: 9.3 - Hold glimepiride - Accuchecks - ISS - Hypoglycemia protocol HTN - Amlodipine 10mg po daily HLD - Simvastatin NF - Crestor 5mg po HS Prophylaxis - SCDs, Heparin 5000units SC Q12H - Protonix 40mg po daily - renal low carb diet Patient seen and case discussed in detail with Dr. Danitza Burks PGY1 <Anderson Bosch H - Last Filed: 07/31/18 08:51> Objective - Vital Signs/Intake and Output Vital Signs (last 24 hours): Temp Pulse Resp BP Pulse Ox 98.1 F 92 H 20 148/70 96 07/30/18 23:00 07/31/18 05:01 07/30/18 23:00 07/30/18 23:00 07/30/18 23:00 Intake and Output: 07/31/18 07/31/18 06:59 18:59 Intake Total 570 Output Total 0 Balance 570 - Medications Medications: Current Medications Albuterol/Ipratropium (Duoneb 3 Mg/0.5 Mg (3 Ml) Ud) 3 ml IH RQ6 [facility] Last Admin: 07/30/18 19:37 Dose: 3 ml Amlodipine Besylate (Norvasc) 10 mg PO DAILY [facility] Last Admin: 07/30/18 09:39 Dose: 10 mg Calcitriol (Rocaltrol) 0.25 mcg PO DAILY [facility] Last Admin: 07/30/18 09:38 Dose: 0.25 mcg Dextrose (Dextrose 50% Inj) 0 ml IV STAT PRN; Protocol PRN Reason: Hypoglycemia Protocol Dextrose (Glutose 15) 0 gm PO ONCE PRN; Protocol PRN Reason: Hypoglycemia Protocol Docusate Sodium (Colace) 100 mg PO DAILY [facility] Last Admin: 07/30/18 09:38 Dose: 100 mg Epoetin Justino (Procrit) 10,000 unit IV MWF [facility] Last Admin: 07/29/18 12:42 Dose: 10,000 unit Ferric Sodium Gluconate Complex (Ferrlecit) 125 mg IVPB Q24H [facility] Stop: 08/05/18 11:01 Last Admin: 07/30/18 11:47 Dose: 125 mg Folic Acid (Folic Acid) 1 mg PO DAILY [facility] Last Admin: 07/30/18 09:38 Dose: 1 mg Glucagon (Glucagen Diagnostic Kit) 0 mg IM STAT PRN; Protocol PRN Reason: Hypoglycemia Protocol Dextrose (Dextrose 5% In Water 1000 Ml) 1,000 mls @ 0 mls/hr IV .Q0M PRN; Protocol PRN Reason: Hypoglycemia Protocol Piperacillin Sod/Tazobactam Sod (Zosyn 2.25 Gm Iv Premix) 2.25 gm in 50 mls @ 100 mls/hr IVPB Q8H [facility]; Protocol Last Admin: 07/31/18 01:36 Dose: 100 mls/hr Vancomycin/Sodium Chloride (Vancomycin 1 Gm/Ns 200 Ml) 1 gm in 200 mls @ 133.333 mls/hr IVPB Q24H [facility]; Protocol Last Admin: 07/30/18 20:45 Dose: 133.333 mls/hr Insulin Glargine (Lantus) 10 unit SC HS [facility] Last Admin: 07/30/18 21:43 Dose: 10 units Insulin Human Regular (Novolin R) 0 unit SC ACHS [facility]; Protocol Last Admin: 07/30/18 21:48 Dose: 3 unit Methylprednisolone (Solu-Medrol) 40 mg IVP Q12 [facility] Last Admin: 07/30/18 21:44 Dose: 40 mg Pantoprazole Sodium (Protonix Ec Tab) 40 mg PO DAILY [facility] Last Admin: 07/30/18 09:38 Dose: 40 mg Rosuvastatin Calcium (Crestor) 5 mg PO HS [facility] Last Admin: 07/30/18 21:43 Dose: 5 mg - Labs Labs: 07/31/18 08:10 07/30/18 07:02 PT 13.0 SECONDS (9.7-12.2) H 07/27/18 06:34 INR 1.2 07/27/18 06:34 APTT 35 SECONDS (21-34) H 07/27/18 06:34 Attending/Attestation - Attestation I have personally seen and examined this patient.: Yes I have fully participated in the care of the patient.: Yes I have reviewed all pertinent clinical information, including history, physical exam and plan: Yes Notes (Text): 07/31/18 08:40 Medical attending: Patient was seen and examined by me. Reviewed the previous notes, agree with the above note by the resident This is an 82 year old male who is S/P permacath as well as S/P peritoneal c ather for diaylsis. Currently pending outpatient HD placement This morning he has been reporting on coughing, no sputum production The patient denied chest pain, denied fevers Currently the cultures are negative - the CXRAY suggest possible pneumonia previously he had an elevation of WBC, it is now down trending. On IV abx. The patient does also have history of interstitial lung disease - he is on PO tapering solumedrol at the moment. If he does ok maybe can stop this Also he reports he has been walking well, but will get a PT evaluation anyway just to see how he does thank you Anderson Bosch
[2018-07-31 08:33] LABS: BASO % 0.2 % (0.0-2.0); LYMPH # 0.3 K/uL (1.0-4.3); LYMPH % 2.7 % (20.0-40.0); MEAN CELL VOLUME 95.5 fL (80.0-94.0); MEAN CORPUSCULAR HEMOGLOBIN 32.3 pg (27.0-31.0); MEAN CORPUSCULAR HGB CONC 33.8 g/dL (33.0-37.0); MEAN PLATELET VOLUME 8.4 fL (7.2-11.7); MONO # 0.4 K/uL (0.0-0.8); MONO % 3.8 % (0.0-10.0); NEUT # 11.1 K/uL (1.8-7.0); NEUT % 93.3 % (50.0-75.0); NRBC % 0.2 % (0.0-2.0); PLATELET COUNT 184 K/uL (130-400); RED CELL DISTRIBUTION WIDTH 16.9 % (11.5-14.5); WHITE BLOOD COUNT 11.9 K/uL (4.8-10.8)
[2018-07-31 08:47] LABS: ALB/GLOB RATIO 1.3 (1.0-2.1); ALBUMIN 3.5 g/dL (3.5-5.0); ALT/SGPT < 6 U/L (21-72); AST/SGOT 11 U/L (17-59); BLOOD UREA NITROGEN 58 mg/dL (9-20); CALCIUM 9.2 mg/dl (8.6-10.4); GFR NON-AFRICAN AMERICAN 17
[2018-07-31] MEDS: (Novolin R) Insulin Human Regular 100 units/ml vial SC SCH ×4 (08:50→21:46)
[2018-07-31 09:12] LABS: ANISOCYTOSIS SLIGHT; LYMPHOCYTE 4 % (20-40); MONOCYTE 2 % (0-10); NEUTROPHIL 94 % (50-75); PLATELET ESTIMATE NORMAL (NORMAL); TOTAL CELLS COUNTED 100
[2018-07-31 09:13] LABS: HYPOCHROMIC SLIGHT; MICROCYTOSIS SLIGHT; OVALOCYTES SLIGHT; POIKILOCYTOSIS SLIGHT; POLYCHROMIC SLIGHT; TEARDROP CELLS SLIGHT
[2018-07-31 09:14] LABS: PLATELET CLUMPS PRESENT
[2018-07-31] MEDS: Pantoprazole 40 mg EC Tab PO SCH (09:46)
[2018-07-31] MEDS: MethylPREDNISolone 40 mg Vial IVP SCH ×2 (09:46→21:46)
[2018-07-31] MEDS: Ferric Sodium Gluconat Complex 62.5 mg/5 ml Vial IVPB SCH (11:26)
[2018-07-31] MEDS: Vancomycin 1 gm/NS 200 ml 1 GM/200 ML BAG IVPB SCH (19:34)
[2018-07-31] MEDS: (Lantus) Insulin Glargine, Recombinant SC SCH (21:47)
[2018-08-01] MEDS: Piperacill/Tazo 2.25gm in Dex 2.25 GM/50 ML BAG IVPB SCH ×3 (00:50→18:00)
[2018-08-01] MEDS: Albuterol-Ipratrop 3 mg / 0.5 (3 ml) UD IH SCH ×3 (07:35→20:19)
[2018-08-01 07:41] LABS: BASO % 0.1 % (0.0-2.0); HEMOGLOBIN 8.6 g/dL (12.0-18.0); LYMPH # 0.3 K/uL (1.0-4.3); MEAN CELL VOLUME 95.4 fL (80.0-94.0); MEAN CORPUSCULAR HEMOGLOBIN 31.8 pg (27.0-31.0); MEAN CORPUSCULAR HGB CONC 33.3 g/dL (33.0-37.0); MONO # 0.5 K/uL (0.0-0.8); NEUT # 14.5 K/uL (1.8-7.0); NEUT % 94.9 % (50.0-75.0); NRBC % 0.3 % (0.0-2.0); PLATELET COUNT 211 K/uL (130-400); RBC 2.71 Mil/uL (4.40-5.90); RED CELL DISTRIBUTION WIDTH 16.5 % (11.5-14.5); WHITE BLOOD COUNT 15.3 K/uL (4.8-10.8)
--- NOTE | 2018-08-01 08:05 | CP.PCM.PN ---
<Sanjay Burks - Last Filed: 08/01/18 14:40> Subjective - Date & Time of Evaluation Date of Evaluation: 08/01/18 Time of Evaluation: 08:03 - Subjective Subjective: PGY1 Medicine Progress Note for Dr. Bosch Patient was seen and evaluated at bedside this morning. No acute events overnight. No current complaints. Patient tolerating diet. Patient continues to have cough. Patient planned for dialysis this afternoon. Patient otherwise denies chest pain, abdominal pain, shortness of breath, back pain, lower extremity pain, numbness/tingling, dizziness, headache, nausea, vomiting, fever, and/or chills. Objective - Vital Signs/Intake and Output Vital Signs (last 24 hours): Temp Pulse Resp BP Pulse Ox 98.1 F 87 20 142/71 95 07/31/18 23:00 08/01/18 01:00 07/31/18 23:00 07/31/18 23:00 07/31/18 23:00 Intake and Output: 08/01/18 08/01/18 06:59 18:59 Intake Total 570 Output Total 500 Balance 70 - Medications Medications: Current Medications Albuterol/Ipratropium (Duoneb 3 Mg/0.5 Mg (3 Ml) Ud) 3 ml IH RQ6 [facility] Last Admin: 07/31/18 20:06 Dose: 3 ml Amlodipine Besylate (Norvasc) 10 mg PO DAILY [facility] Last Admin: 07/31/18 09:46 Dose: 10 mg Calcitriol (Rocaltrol) 0.25 mcg PO DAILY [facility] Last Admin: 07/31/18 09:46 Dose: 0.25 mcg Dextrose (Dextrose 50% Inj) 0 ml IV STAT PRN; Protocol PRN Reason: Hypoglycemia Protocol Dextrose (Glutose 15) 0 gm PO ONCE PRN; Protocol PRN Reason: Hypoglycemia Protocol Docusate Sodium (Colace) 100 mg PO DAILY [facility] Last Admin: 07/31/18 09:46 Dose: 100 mg Epoetin Justino (Procrit) 10,000 unit IV MWF [facility] Last Admin: 07/29/18 12:42 Dose: 10,000 unit Ferric Sodium Gluconate Complex (Ferrlecit) 125 mg IVPB Q24H [facility] Stop: 08/05/18 11:01 Last Admin: 07/31/18 11:26 Dose: 125 mg Folic Acid (Folic Acid) 1 mg PO DAILY [facility] Last Admin: 07/31/18 09:46 Dose: 1 mg Glucagon (Glucagen Diagnostic Kit) 0 mg IM STAT PRN; Protocol PRN Reason: Hypoglycemia Protocol Dextrose (Dextrose 5% In Water 1000 Ml) 1,000 mls @ 0 mls/hr IV .Q0M PRN; Protocol PRN Reason: Hypoglycemia Protocol Piperacillin Sod/Tazobactam Sod (Zosyn 2.25 Gm Iv Premix) 2.25 gm in 50 mls @ 100 mls/hr IVPB Q8H [facility]; Protocol Last Admin: 08/01/18 00:50 Dose: 100 mls/hr Vancomycin/Sodium Chloride (Vancomycin 1 Gm/Ns 200 Ml) 1 gm in 200 mls @ 133.333 mls/hr IVPB Q24H [facility]; Protocol Last Admin: 07/31/18 19:34 Dose: 133.333 mls/hr Insulin Glargine (Lantus) 10 unit SC [facility] Last Admin: 07/31/18 21:47 Dose: 10 units Insulin Human Regular (Novolin R) 0 unit SC [facility]; Protocol Last Admin: 07/31/18 21:46 Dose: 3 unit Methylprednisolone (Solu-Medrol) 40 mg IVP Q12 [facility] Last Admin: 07/31/18 21:46 Dose: 40 mg Pantoprazole Sodium (Protonix Ec Tab) 40 mg PO DAILY [facility] Last Admin: 07/31/18 09:46 Dose: 40 mg Rosuvastatin Calcium (Crestor) 5 mg PO HS [facility] Last Admin: 07/31/18 21:46 Dose: 5 mg - Labs Labs: 08/01/18 07:29 07/31/18 08:10 PT 13.0 SECONDS (9.7-12.2) H 07/27/18 06:34 INR 1.2 07/27/18 06:34 APTT 35 SECONDS (21-34) H 07/27/18 06:34 - Additional Findings Additional findings: - Constitutional Appears: Non-toxic, No Acute Distress - Head Exam Head Exam: NORMAL INSPECTION - Eye Exam Eye Exam: Normal appearance Pupil Exam: PERRL - ENT Exam ENT Exam: Mucous Membranes Moist, Normal Exam - Neck Exam Neck Exam: Full ROM (chest permcath), Normal Inspection - Respiratory Exam Respiratory Exam: Decreased Breath Sounds, Rhonchi [place] - Cardiovascular Exam Cardiovascular Exam: REGULAR RHYTHM - GI/Abdominal Exam GI & Abdominal Exam: Soft, Normal Bowel Sounds, L abdomen, peritoneal dialysis cath covered w bandage - Extremities Exam Extremities Exam: Full ROM, Normal Inspection - Neurological Exam Neurological Exam: Alert, Awake, Oriented x3 - Skin Skin Exam: Dry, Intact Assessment and Plan - Assessment and Plan (Free Text) Assessment: 82M with a PMHx of CKD admitted s/p permacath 07/25, and peritoneal dialysis cath 07/27 w/ Oleg and 1st time dialysis. Patient has now had 3 sessions total, and is currently pending discharge; pending out-patient dialysis placement. Cough likely secondary to Pneumonia with underlying COPD Exacerbation - F/U CXR today following dialysis - Assess for home-O2 tomorrow - Continue Duonebs q4h prn - Continue Lasix 40mg po daily - 07/29 CXR: patchy opacity at the left base/left lower lung infiltrate vs atelect asis, small bilateral pleural effusion (see official report) - Vanco 1mg x1 dose ordered - Solumedrol 40mg Q12H - Patient with tachycardia and leukocytosis - 07/29 Sputum culture: POSITIVE for Pseudomonas - ID consulted (Dr. Gaitan) recommendations appreciated - F/U Blood cultures - Urinalysis: unremarkable - Influenza A/B: negative - Antibiotics: Zosyn 2.25g in 50mL IVPB Q8H - Hepatitis panel negative CKD Stage 5 - BUN/Cr monitored - Dialysis scheduled for today - GFR: 14 - Dr. Dejesus consulted for dialysis access, help appreciated - Dr. Dutton consulted, help appreciated -Dialyze today and Discharge is pending out-patient dialysis placement - Patient tolerated breathing treatments and lasix, - Hepatitis panel negative - Calcitriol 0.25mcg po daily - Folic acid 1mg po daily - Epotin Justino 10,000 units IV MWF History of COPD - Continue Duonebs q4h PRN - Patient reports he only uses albuterol as needed BID - Called pharmacy to confirm COPD medication: Patient is prescribed simbacort inhaler DM TYPE 2 - HgA1C: 9.3 - Glargine increased from 10 to 20 units SC HS - Accuchecks - ISS increased to high intensity coverage - Hypoglycemia protocol HTN - Amlodipine 10mg po daily HLD - Simvastatin NF - Crestor 5mg po HS Prophylaxis - SCDs, Heparin 5000units SC Q12H - Protonix 40mg po daily - Renal low carb diet Patient seen and case discussed in detail with Dr. Danitza Burks PGY1 <Anderson Bosch H - Last Filed: 08/01/18 16:26> Objective - Vital Signs/Intake and Output Vital Signs (last 24 hours): Temp Pulse Resp BP Pulse Ox 97.8 F 94 H 16 108/61 95 08/01/18 14:15 08/01/18 14:15 08/01/18 14:15 08/01/18 15:10 08/01/18 14:15 Intake and Output: 08/01/18 08/01/18 06:59 18:59 Intake Total 570 Output Total 500 Balance 70 - Medications Medications: Current Medications Albuterol/Ipratropium (Duoneb 3 Mg/0.5 Mg (3 Ml) Ud) 3 ml IH RQ6 [facility] Last Admin: 08/01/18 13:35 Dose: 3 ml Amlodipine Besylate (Norvasc) 10 mg PO DAILY [facility] Last Admin: 08/01/18 10:44 Dose: 10 mg Calcitriol (Rocaltrol) 0.25 mcg PO DAILY [facility] Last Admin: 08/01/18 10:44 Dose: 0.25 mcg Dextrose (Dextrose 50% Inj) 0 ml IV STAT PRN; Protocol PRN Reason: Hypoglycemia Protocol Dextrose (Glutose 15) 0 gm PO ONCE PRN; Protocol PRN Reason: Hypoglycemia Protocol Docusate Sodium (Colace) 100 mg PO DAILY [facility] Last Admin: 08/01/18 10:43 Dose: 100 mg Epoetin Justino (Procrit) 10,000 unit IV MWF [facility] Last Admin: 08/01/18 15:36 Dose: 10,000 unit Ferric Sodium Gluconate Complex (Ferrlecit) 125 mg IVPB Q24H [facility] Stop: 08/05/18 11:01 Last Admin: 07/31/18 11:26 Dose: 125 mg Folic Acid (Folic Acid) 1 mg PO DAILY [facility] Last Admin: 08/01/18 10:44 Dose: 1 mg Glucagon (Glucagen Diagnostic Kit) 0 mg IM STAT PRN; Protocol PRN Reason: Hypoglycemia Protocol Dextrose (Dextrose 5% In Water 1000 Ml) 1,000 mls @ 0 mls/hr IV .Q0M PRN; Protocol PRN Reason: Hypoglycemia Protocol Piperacillin Sod/Tazobactam Sod (Zosyn 2.25 Gm Iv Premix) 2.25 gm in 50 mls @ 100 mls/hr IVPB Q8H [facility]; Protocol Last Admin: 08/01/18 10:44 Dose: 100 mls/hr Vancomycin/Sodium Chloride (Vancomycin 1 Gm/Ns 200 Ml) 1 gm in 200 mls @ 133.333 mls/hr IVPB Q24H [facility]; Protocol Last Admin: 07/31/18 19:34 Dose: 133.333 mls/hr Insulin Glargine (Lantus) 20 unit SC HS [facility] Insulin Human Regular (Novolin R) 0 unit SC ACHS [facility]; Protocol Methylprednisolone (Solu-Medrol) 40 mg IVP Q12 [facility] Last Admin: 08/01/18 10:44 Dose: 40 mg Pantoprazole Sodium (Protonix Ec Tab) 40 mg PO DAILY [facility] Last Admin: 08/01/18 10:44 Dose: 40 mg Rosuvastatin Calcium (Crestor) 5 mg PO HS [facility] Last Admin: 07/31/18 21:46 Dose: 5 mg - Labs Labs: 08/01/18 07:29 08/01/18 07:29 PT 13.0 SECONDS (9.7-12.2) H 07/27/18 06:34 INR 1.2 07/27/18 06:34 APTT 35 SECONDS (21-34) H 07/27/18 06:34 Attending/Attestation - Attestation I have personally seen and examined this patient.: Yes I have fully participated in the care of the patient.: Yes I have reviewed all pertinent clinical information, including history, physical exam and plan: Yes Notes (Text): 08/01/18 16:24 Medical attending: Patient was seen and examined by me. Agree with the above note by the resident The patient was not in any acute distress when we came and saw him. He was pending another HD session later this afternoon The patient as mentioned previously is pending HD placment The patient reported the abdominal pain is controlled at this time There was a + pseudomonas growth on a sputum culture and while he is already on IV vancomycin and IV Zosyn will get ID evaluation Anderson Bosch
[2018-08-01 08:10] LABS: ALB/GLOB RATIO 1.3 (1.0-2.1); ALBUMIN 3.3 g/dL (3.5-5.0)
[2018-08-01] MEDS: (Novolin R) Insulin Human Regular 100 units/ml vial SC SCH ×4 (08:50→22:00)
[2018-08-01 08:55] LABS: ANISOCYTOSIS SLIGHT; HYPOCHROMIC SLIGHT; LYMPHOCYTE 2 % (20-40); MONOCYTE 4 % (0-10); MYELOCYTE 2 % (0-0); NEUTROPHIL 92 % (50-75); PLATELET ESTIMATE NORMAL (NORMAL); POIKILOCYTOSIS SLIGHT; TARGET CELLS SLIGHT; TEARDROP CELLS SLIGHT; TOTAL CELLS COUNTED 100
[2018-08-01 08:56] LABS: ACANTHOCYTES SLIGHT
[2018-08-01] MEDS: MethylPREDNISolone 40 mg Vial IVP SCH ×2 (10:44→23:10)
[2018-08-01] MEDS: Pantoprazole 40 mg EC Tab PO SCH (10:44)
--- NOTE | 2018-08-01 12:20 | CP.PCM.PN ---
Subjective - Date & Time of Evaluation Date of Evaluation: 08/01/18 Time of Evaluation: 12:18 - Subjective Subjective: feels much better BP controlled Hg still low- on EPO, IV Fe For dialysis today sputum + for pseudomonas- on IV ABs Objective - Vital Signs/Intake and Output Vital Signs (last 24 hours): Temp Pulse Resp BP Pulse Ox 98.0 F 90 18 146/66 96 08/01/18 07:25 08/01/18 07:25 08/01/18 07:25 08/01/18 07:25 08/01/18 07:25 Intake and Output: 08/01/18 08/01/18 06:59 18:59 Intake Total 570 Output Total 500 Balance 70 - Medications Medications: Current Medications Albuterol/Ipratropium (Duoneb 3 Mg/0.5 Mg (3 Ml) Ud) 3 ml IH RQ6 [facility] Last Admin: 07/31/18 20:06 Dose: 3 ml Amlodipine Besylate (Norvasc) 10 mg PO DAILY [facility] Last Admin: 08/01/18 10:44 Dose: 10 mg Calcitriol (Rocaltrol) 0.25 mcg PO DAILY [facility] Last Admin: 08/01/18 10:44 Dose: 0.25 mcg Dextrose (Dextrose 50% Inj) 0 ml IV STAT PRN; Protocol PRN Reason: Hypoglycemia Protocol Dextrose (Glutose 15) 0 gm PO ONCE PRN; Protocol PRN Reason: Hypoglycemia Protocol Docusate Sodium (Colace) 100 mg PO DAILY [facility] Last Admin: 08/01/18 10:43 Dose: 100 mg Epoetin Justino (Procrit) 10,000 unit IV MWF [facility] Last Admin: 07/29/18 12:42 Dose: 10,000 unit Ferric Sodium Gluconate Complex (Ferrlecit) 125 mg IVPB Q24H [facility] Stop: 08/05/18 11:01 Last Admin: 07/31/18 11:26 Dose: 125 mg Folic Acid (Folic Acid) 1 mg PO DAILY [facility] Last Admin: 08/01/18 10:44 Dose: 1 mg Glucagon (Glucagen Diagnostic Kit) 0 mg IM STAT PRN; Protocol PRN Reason: Hypoglycemia Protocol Dextrose (Dextrose 5% In Water 1000 Ml) 1,000 mls @ 0 mls/hr IV .Q0M PRN; Protocol PRN Reason: Hypoglycemia Protocol Piperacillin Sod/Tazobactam Sod (Zosyn 2.25 Gm Iv Premix) 2.25 gm in 50 mls @ 100 mls/hr IVPB Q8H [facility]; Protocol Last Admin: 08/01/18 10:44 Dose: 100 mls/hr Vancomycin/Sodium Chloride (Vancomycin 1 Gm/Ns 200 Ml) 1 gm in 200 mls @ 133.333 mls/hr IVPB Q24H [facility]; Protocol Last Admin: 07/31/18 19:34 Dose: 133.333 mls/hr Insulin Glargine (Lantus) 10 unit SC HS [facility] Last Admin: 07/31/18 21:47 Dose: 10 units Insulin Human Regular (Novolin R) 0 unit SC ACHS [facility]; Protocol Last Admin: 08/01/18 08:50 Dose: 4 unit Methylprednisolone (Solu-Medrol) 40 mg IVP Q12 [facility] Last Admin: 08/01/18 10:44 Dose: 40 mg Pantoprazole Sodium (Protonix Ec Tab) 40 mg PO DAILY [facility] Last Admin: 08/01/18 10:44 Dose: 40 mg Rosuvastatin Calcium (Crestor) 5 mg PO HS [facility] Last Admin: 07/31/18 21:46 Dose: 5 mg - Labs Labs: 08/01/18 07:29 08/01/18 07:29 PT 13.0 SECONDS (9.7-12.2) H 07/27/18 06:34 INR 1.2 07/27/18 06:34 APTT 35 SECONDS (21-34) H 07/27/18 06:34 - Constitutional Appears: No Acute Distress, Chronically Ill - Head Exam Head Exam: ATRAUMATIC, NORMAL INSPECTION - Eye Exam Eye Exam: EOMI, Normal appearance - Neck Exam Neck Exam: Normal Inspection. absent: Tenderness - Respiratory Exam Respiratory Exam: Rhonchi, NORMAL BREATHING PATTERN - Cardiovascular Exam Cardiovascular Exam: REGULAR RHYTHM, +S1 - GI/Abdominal Exam GI & Abdominal Exam: Soft. absent: Tenderness - Extremities Exam Extremities Exam: Normal Inspection. absent: Tenderness - Neurological Exam Neurological Exam: Awake, CN II-XII Intact - Skin Skin Exam: Dry, Warm Assessment and Plan (1) CKD (chronic kidney disease) stage 5, GFR less than 15 ml/min Status: Acute (2) CKD stage 5 secondary to hypertension Status: Acute (3) Pulmonary fibrosis Status: Acute (4) COPD exacerbation Status: Acute (5) ESRD (end stage renal disease) Status: Acute - Assessment and Plan (Free Text) Plan: dialysis today IV ABs as per medicine placement for HD when stable
[2018-08-01] MEDS ORDERED: (Novolin R) Insulin Human Regular 100 units/ml vial SC ONE (12:31)
[2018-08-01] MEDS ORDERED: (Lantus) Insulin Glargine, Recombinant SC SCH (13:46)
[2018-08-01] MEDS: Epoetin Alfa 10,000 unit/ml Dialysis IV SCH (15:36)
--- NOTE | 2018-08-01 15:43 | CP.PCM.CON ---
History of Present Illness - History of Present Illness History of Present Illness: DICTATED Past Patient History - Infectious Disease Hx of Infectious Diseases: None - Past Medical History & Family History Past Medical History?: Yes Past Family History: Reviewed and not pertinent - Past Social History Smoking Status: Former Smoker Chewing Tobacco Use: No Cigar Use: No Alcohol: Occasional Drugs: Denies Home Situation {Lives}: With Family - CARDIAC Hx Hypertension: Yes - PULMONARY Hx Chronic Obstructive Pulmonary Disease (COPD): Yes - HEENT Other/Comment: wears glasses - RENAL Hx Chronic Kidney Disease: Yes - ENDOCRINE/METABOLIC Hx Endocrine Disorders: Yes Hx Diabetes Mellitus Type 2: Yes - HEMATOLOGICAL/ONCOLOGICAL Hx Blood Disorders: Yes Hx Blood Transfusions: Yes - MUSCULOSKELETAL/RHEUMATOLOGICAL Hx Arthritis: Yes - GASTROINTESTINAL Hx Gastrointestinal Disorders: Yes Other/Comment: HERNIA - PSYCHIATRIC Hx Substance Use: No - SURGICAL HISTORY Hx Surgeries: Yes Hx Herniorrhaphy: Yes (RIGHT INGUINAL) - ANESTHESIA Hx Anesthesia: Yes Hx Anesthesia Reactions: No Hx Malignant Hyperthermia: No Meds Allergies/Adverse Reactions: Allergies Allergy/AdvReac Type Severity Reaction Status Date / Time aspirin Allergy Severe PAIN Verified 07/25/18 09:13 - Medications Medications: Current Medications Albuterol/Ipratropium (Duoneb 3 Mg/0.5 Mg (3 Ml) Ud) 3 ml IH RQ6 [facility] Last Admin: 08/01/18 13:35 Dose: 3 ml Amlodipine Besylate (Norvasc) 10 mg PO DAILY [facility] Last Admin: 08/01/18 10:44 Dose: 10 mg Calcitriol (Rocaltrol) 0.25 mcg PO DAILY [facility] Last Admin: 08/01/18 10:44 Dose: 0.25 mcg Dextrose (Dextrose 50% Inj) 0 ml IV STAT PRN; Protocol PRN Reason: Hypoglycemia Protocol Dextrose (Glutose 15) 0 gm PO ONCE PRN; Protocol PRN Reason: Hypoglycemia Protocol Docusate Sodium (Colace) 100 mg PO DAILY [facility] Last Admin: 08/01/18 10:43 Dose: 100 mg Epoetin Justino (Procrit) 10,000 unit IV MWF [facility] Last Admin: 08/01/18 15:36 Dose: 10,000 unit Ferric Sodium Gluconate Complex (Ferrlecit) 125 mg IVPB Q24H [facility] Stop: 08/05/18 11:01 Last Admin: 07/31/18 11:26 Dose: 125 mg Folic Acid (Folic Acid) 1 mg PO DAILY [facility] Last Admin: 08/01/18 10:44 Dose: 1 mg Glucagon (Glucagen Diagnostic Kit) 0 mg IM STAT PRN; Protocol PRN Reason: Hypoglycemia Protocol Dextrose (Dextrose 5% In Water 1000 Ml) 1,000 mls @ 0 mls/hr IV .Q0M PRN; Protocol PRN Reason: Hypoglycemia Protocol Piperacillin Sod/Tazobactam Sod (Zosyn 2.25 Gm Iv Premix) 2.25 gm in 50 mls @ 100 mls/hr IVPB Q8H [facility]; Protocol Last Admin: 08/01/18 10:44 Dose: 100 mls/hr Vancomycin/Sodium Chloride (Vancomycin 1 Gm/Ns 200 Ml) 1 gm in 200 mls @ 133.333 mls/hr IVPB Q24H [facility]; Protocol Last Admin: 07/31/18 19:34 Dose: 133.333 mls/hr Aztreonam 1 gm/ Sodium (Chloride) 100 mls @ 200 mls/hr IVPB DAILY [facility]; Protocol Stop: 08/08/18 18:00 Insulin Glargine (Lantus) 20 unit SC HS [facility] Insulin Human Regular (Novolin R) 0 unit SC ACHS [facility]; Protocol Methylprednisolone (Solu-Medrol) 40 mg IVP Q12 [facility] Last Admin: 08/01/18 10:44 Dose: 40 mg Pantoprazole Sodium (Protonix Ec Tab) 40 mg PO DAILY [facility] Last Admin: 08/01/18 10:44 Dose: 40 mg Rosuvastatin Calcium (Crestor) 5 mg PO HS [facility] Last Admin: 07/31/18 21:46 Dose: 5 mg Results - Vital Signs Recent Vital Signs: Last Vital Signs Temp 97.8 F 08/01/18 14:15 Pulse 94 H 08/01/18 14:15 Resp 16 08/01/18 14:15 BP 108/61 08/01/18 15:10 Pulse Ox 95 08/01/18 14:15 - Labs Result Diagrams: 08/01/18 07:29 08/01/18 07:29 Labs: Laboratory Results - last 24 hr 07/31/18 07/31/18 08/01/18 17:05 21:32 01:52 WBC RBC Hgb Hct MCV MCH MCHC RDW Plt Count MPV Neut % (Auto) Lymph % (Auto) [place] % (Auto) Eos % (Auto) Baso % (Auto) Neut # (Auto) Lymph # (Auto) [place] # (Auto) Eos # (Auto) Baso # (Auto) Neutrophils % (Manual) Lymphocytes % (Manual) Monocytes % (Manual) Myelocytes % Platelet Estimate Hypochromasia (manual) Poikilocytosis (manual Anisocytosis (manual) Macrocytosis (manual) Target Cells Tear Drop Cells Acanthocytes (Spur) Sodium Potassium Chloride Carbon Dioxide Anion Gap BUN Creatinine Est GFR ( Amer) Est GFR (Non-Af Amer) POC Glucose (mg/dL) 368 H 406 H* 374 H Random Glucose Calcium Phosphorus Magnesium Total Bilirubin AST ALT Alkaline Phosphatase Total Protein Albumin Globulin Albumin/Globulin Ratio 08/01/18 08/01/18 08/01/18 06:34 07:29 07:29 WBC 15.3 H RBC 2.71 L Hgb 8.6 L Hct 25.9 L MCV 95.4 H MCH 31.8 H MCHC 33.3 RDW 16.5 H Plt Count 211 MPV 8.0 Neut % (Auto) 94.9 H Lymph % (Auto) 2.0 L [place] % (Auto) 3.0 Eos % (Auto) 0.0 Baso % (Auto) 0.1 Neut # (Auto) 14.5 H Lymph # (Auto) 0.3 L [place] # (Auto) 0.5 Eos # (Auto) 0.0 Baso # (Auto) 0.0 Neutrophils % (Manual) 92 H Lymphocytes % (Manual) 2 L Monocytes % (Manual) 4 Myelocytes % 2 H Platelet Estimate Normal Hypochromasia (manual) Slight Poikilocytosis (manual Slight Anisocytosis (manual) Slight Macrocytosis (manual) Slight Target Cells Slight Tear Drop Cells Slight Acanthocytes (Spur) Slight Sodium 135 Potassium 4.5 Chloride 100 Carbon Dioxide 24 Anion Gap 15 BUN 72 H Creatinine 4.1 H Est GFR ( Amer) 17 Est GFR (Non-Af Amer) 14 POC Glucose (mg/dL) 349 H Random Glucose 319 H Calcium 9.0 Phosphorus 4.4 Magnesium 1.7 Total Bilirubin 0.4 AST 17 D ALT 8 L D Alkaline Phosphatase 79 Total Protein 5.8 L Albumin 3.3 L Globulin 2.5 Albumin/Globulin Ratio 1.3 08/01/18 08/01/18 11:32 14:36 WBC RBC Hgb Hct MCV MCH MCHC RDW Plt Count MPV Neut % (Auto) Lymph % (Auto) [place] % (Auto) Eos % (Auto) Baso % (Auto) Neut # (Auto) Lymph # (Auto) [place] # (Auto) Eos # (Auto) Baso # (Auto) Neutrophils % (Manual) Lymphocytes % (Manual) Monocytes % (Manual) Myelocytes % Platelet Estimate Hypochromasia (manual) Poikilocytosis (manual Anisocytosis (manual) Macrocytosis (manual) Target Cells Tear Drop Cells Acanthocytes (Spur) Sodium Potassium Chloride Carbon Dioxide Anion Gap BUN Creatinine Est GFR ( Amer) Est GFR (Non-Af Amer) POC Glucose (mg/dL) > 500 H* 297 H Random Glucose Calcium Phosphorus Magnesium Total Bilirubin AST ALT Alkaline Phosphatase Total Protein Albumin Globulin Albumin/Globulin Ratio
[2018-08-01] MEDS: Ferric Sodium Gluconat Complex 62.5 mg/5 ml Vial IVPB SCH (16:28)
[2018-08-01] MEDS ORDERED: Aztreonam 1 GM in Sodium Chloride 0.9% 100 ML IVPB SCH (18:00)
[2018-08-01] MEDS: Vancomycin 1 gm/NS 200 ml 1 GM/200 ML BAG IVPB SCH (21:00)
--- NOTE | 2018-08-02 00:40 | CON ---
DATE: 08/01/2018 INFECTIOUS DISEASE CONSULTATION REQUESTED BY: Lexie Dias MD HISTORY OF PRESENT ILLNESS: This patient is an 82-year-old male. He was having dialysis today through a catheter, and I saw him in the dialysis. He is 82 years old. He has history of COPD, hypertension. He says first time he is having dialysis here. He has end-stage renal disease, anemia, diabetes type 2. He presented with worsening kidney infection, weight loss and shortness of breath. He is compliant with his medications. He had no other complaints. He has past medical history of hypertension, hyperlipidemia, diabetes, end-stage renal disease, COPD and anemia. He also has some history of pulmonary fibrosis somewhere he has had and surgical history of right inguinal repair in 2018 and 2015. ALLERGIES: HE IS ALLERGIC TO ASPIRIN. SOCIAL HISTORY: Significant for former smoker, quit at age 42. He smoked one to two packs per day for 20 years and one beer occasionally. No drug abuse. FAMILY HISTORY: His father of bone cancer at age 60, and mother had uterine cancer in her 60s. He is being followed by Dr. Lobato at this time because of his anemia, I guess. MEDICATIONS: He is on medications of Duoneb, Norvasc, Rocaltrol, Colace, Procrit, Ferrlecit, folic acid. He is supposed to be on Lantus, Solu-Medrol every 12 hours. He is on Protonix. He is on Zosyn, Crestor and vancomycin. He came in on 07/29/2018. REVIEW OF SYSTEMS: Actually during hospitalization, he had laparoscopic placement of Tenckhoff peritoneal dialysis catheter which was placed by Dr. Oleg Raygoza which was put on 07/27/2018. He is being followed by Dr. Dutton's group. I am asked to see him because he has Pseudomonas in the sputum. He has been on antibiotics; however, he has not been tolerating diet. He continues to have cough. He denies any chest pain. No abdominal pain. No shortness of breath. No back pain. No numbness. No tingling. No dizziness. No nausea. No vomiting. No fevers. PAST MEDICAL HISTORY: Noted from the chart as above. PHYSICAL EXAMINATION: VITAL SIGNS: Show temperature is 97.5, pulse 98, blood pressure 118/62, respirations are 16. HEENT: Head is atraumatic, normocephalic. He is on nasal O2. Pupils are reacting to light. Pallor present. Tongue is moist. NECK: Supple. JVP is flat. LUNGS: Have coarse breath sounds but clear. Occasional rhonchi present. HEART: S1 and S2 are regular. No murmurs appreciated. ABDOMEN: Soft, nontender. He has a dressing which I do not remove. EXTREMITIES: Have no edema, clubbing or cyanosis otherwise. He is status post Perm-A-Cath and peritoneal dialysis catheter and gives no complaints. LABORATORY DATA: White count is 15.3, hemoglobin 8.6, hematocrit 25.9, platelet count is 211. He is also on steroids. Sodium is 135, potassium 4.5, chlorides are 100, CO2 is 24, BUN is 72, creatinine is 4.1. Serology shows that he has influenza negative. Hep A, B, core and C are negative. He does not even have B surface antibodies. We should get at least immunity to those by injections as outpatient. Chest x-ray was done on 07/29/2018 which shows patchy opacity in left base, possible left lower lobe infiltrate versus atelectasis, possible small bilateral pleural effusion. He has been on antibiotics since then, and the sputum has Pseudomonas aeruginosa. So at this time, we will repeat an x-ray tomorrow. He did have few wbc's, light growth of Pseudomonas. The patient is already on vancomycin and Zosyn. We will continue the same for now. Pending the sensitivities of Pseudomonas. We will repeat a chest x-ray in the morning. We will follow. IMPRESSION: The patient has Pseudomonas pneumonia and has had end-stage renal disease. He is diabetic and he is on steroids which may be giving him the high white count. Melissa Gaitan MD
[2018-08-02] MEDS: Albuterol-Ipratrop 3 mg / 0.5 (3 ml) UD IH SCH ×5 (01:21→19:36)
[2018-08-02] MEDS: Piperacill/Tazo 2.25gm in Dex 2.25 GM/50 ML BAG IVPB SCH ×3 (05:47→17:52)
[2018-08-02 06:35] LABS: HEMOGLOBIN 8.9 g/dL (12.0-18.0); LYMPH # 0.3 K/uL (1.0-4.3); LYMPH % 1.8 % (20.0-40.0); MEAN CELL VOLUME 96.4 fL (80.0-94.0); MEAN CORPUSCULAR HEMOGLOBIN 31.4 pg (27.0-31.0); MEAN CORPUSCULAR HGB CONC 32.5 g/dL (33.0-37.0); MEAN PLATELET VOLUME 7.9 fL (7.2-11.7); MONO # 0.9 K/uL (0.0-0.8); MONO % 4.5 % (0.0-10.0); NEUT # 18.3 K/uL (1.8-7.0); NEUT % 93.7 % (50.0-75.0); NRBC % 0.1 % (0.0-2.0); PLATELET COUNT 215 K/uL (130-400); RBC 2.84 Mil/uL (4.40-5.90); RED CELL DISTRIBUTION WIDTH 17.1 % (11.5-14.5); WHITE BLOOD COUNT 19.6 K/uL (4.8-10.8)
[2018-08-02 06:50] LABS: ALB/GLOB RATIO 1.2 (1.0-2.1); ALT/SGPT < 6 U/L (21-72); AST/SGOT 15 U/L (17-59); BLOOD UREA NITROGEN 41 mg/dL (9-20); CALCIUM 8.6 mg/dl (8.6-10.4); GFR NON-AFRICAN AMERICAN 29
--- NOTE | 2018-08-02 07:04 | CP.PCM.PN ---
<Sanjay Burks - Last Filed: 08/02/18 13:39> Subjective - Date & Time of Evaluation Date of Evaluation: 08/02/18 Time of Evaluation: 07:04 - Subjective Subjective: PGY1 Medicine Progress Note for Dr. Sharpe Patient was seen and evaluated at bedside this morning. No acute events overnight. No current complaints. Patient tolerating diet. Patient continues to have cough. Patient tolerated dialysis yesterday. Patient otherwise denies chest pain, abdominal pain, shortness of breath, back pain, lower extremity pain, numbness/tingling, dizziness, headache, nausea, vomiting, fever, and/or chills. Objective - Vital Signs/Intake and Output Vital Signs (last 24 hours): Temp Pulse Resp BP Pulse Ox 99 F 99 H 20 145/68 98 08/01/18 23:05 08/01/18 23:05 08/01/18 23:05 08/01/18 23:05 08/01/18 23:05 Intake and Output: 08/02/18 08/02/18 06:59 18:59 Output Total 100 Balance -100 - Medications Medications: Current Medications Albuterol/Ipratropium (Duoneb 3 Mg/0.5 Mg (3 Ml) Ud) 3 ml IH RQ6 [facility] Last Admin: 08/02/18 01:21 Dose: Not Given Amlodipine Besylate (Norvasc) 10 mg PO DAILY [facility] Last Admin: 08/01/18 10:44 Dose: 10 mg Calcitriol (Rocaltrol) 0.25 mcg PO DAILY [facility] Last Admin: 08/01/18 10:44 Dose: 0.25 mcg Dextrose (Dextrose 50% Inj) 0 ml IV STAT PRN; Protocol PRN Reason: Hypoglycemia Protocol Dextrose (Glutose 15) 0 gm PO ONCE PRN; Protocol PRN Reason: Hypoglycemia Protocol Docusate Sodium (Colace) 100 mg PO DAILY [facility] Last Admin: 08/01/18 10:43 Dose: 100 mg Epoetin Jutsino (Procrit) 10,000 unit IV MWF [facility] Last Admin: 08/01/18 15:36 Dose: 10,000 unit Ferric Sodium Gluconate Complex (Ferrlecit) 125 mg IVPB Q24H [facility] Stop: 08/05/18 11:01 Last Admin: 08/01/18 16:28 Dose: 125 mg Folic Acid (Folic Acid) 1 mg PO DAILY [facility] Last Admin: 08/01/18 10:44 Dose: 1 mg Glucagon (Glucagen Diagnostic Kit) 0 mg IM STAT PRN; Protocol PRN Reason: Hypoglycemia Protocol Piperacillin Sod/Tazobactam Sod (Zosyn 2.25 Gm Iv Premix) 2.25 gm in 50 mls @ 100 mls/hr IVPB Q8H [facility]; Protocol Last Admin: 08/02/18 05:47 Dose: 100 mls/hr Vancomycin/Sodium Chloride (Vancomycin 1 Gm/Ns 200 Ml) 1 gm in 200 mls @ 133.333 mls/hr IVPB Q24H [facility]; Protocol Last Admin: 08/01/18 21:00 Dose: 133.333 mls/hr Insulin Glargine (Lantus) 20 unit SC HS [facility] Last Admin: 08/01/18 23:00 Dose: 20 units Insulin Human Regular (Novolin R) 0 unit SC ACHS [facility]; Protocol Last Admin: 08/01/18 22:00 Dose: 2 units Methylprednisolone (Solu-Medrol) 40 mg IVP Q12 [facility] Last Admin: 08/01/18 23:10 Dose: 40 mg Pantoprazole Sodium (Protonix Ec Tab) 40 mg PO DAILY [facility] Last Admin: 08/01/18 10:44 Dose: 40 mg Rosuvastatin Calcium (Crestor) 5 mg PO HS [facility] Last Admin: 08/01/18 22:00 Dose: 5 mg - Labs Labs: 08/02/18 06:28 08/02/18 06:28 PT 13.0 SECONDS (9.7-12.2) H 07/27/18 06:34 INR 1.2 07/27/18 06:34 APTT 35 SECONDS (21-34) H 07/27/18 06:34 - Additional Findings Additional findings: - Constitutional Appears: Non-toxic, No Acute Distress - Head Exam Head Exam: NORMAL INSPECTION - Eye Exam Eye Exam: Normal appearance Pupil Exam: PERRL - ENT Exam ENT Exam: Mucous Membranes Moist, Normal Exam - Neck Exam Neck Exam: Full ROM (chest permcath), Normal Inspection - Respiratory Exam Respiratory Exam: Improved breath sounds following duonebs, Rhonchi lower jackson - Cardiovascular Exam Cardiovascular Exam: REGULAR RHYTHM - GI/Abdominal Exam GI & Abdominal Exam: Soft, Normal Bowel Sounds, L abdomen, peritoneal dialysis cath covered w bandage - Extremities Exam Extremities Exam: Full ROM, Normal Inspection - Neurological Exam Neurological Exam: Alert, Awake, Oriented x3 - Skin Skin Exam: Dry, Intact Assessment and Plan - Assessment and Plan (Free Text) Assessment: 82M with a PMHx of CKD admitted s/p permacath 07/25, and peritoneal dialysis cath 07/27 w/ Oleg and 1st time dialysis. Patient has now had 3 sessions total, and is currently pending discharge; pending out-patient dialysis placement. Cough likely secondary to Atelectasis vs pleural effusion with underlying COPD Exacerbation, improving - 08/02 CXR: improving consolidative changes (without complete resolution) bilaterally - Assess for home-O2 tomorrow - Continue Duonebs Q4H [facility] - Breo Ellipta 1 puff INH RQD - Mucinex 600mg PO Q12H - Continue Lasix 40mg PO daily - Vanco 1mg Daily - Solumedrol IVP 40mg Q8H - Patient with tachycardia and leukocytosis - 07/29 Sputum culture: POSITIVE for Pseudomonas - ID consulted (Dr. Gaitan) recommendations appreciated - Blood cultures negative x72hrs - Urinalysis: unremarkable - Influenza A/B: negative - Antibiotics: Zosyn 2.25g in 50mL IVPB Q8H - Hepatitis panel negative CKD Stage 5 - BUN/Cr monitored - Dialysis yesterday, well tolerated - GFR: 14 - Dr. Dejesus consulted for dialysis access, help appreciated - Dr. Dutton consulted, help appreciated -Dialyze today and Discharge is pending out-patient dialysis placement - Patient tolerated breathing treatments and lasix, - Hepatitis panel negative - Calcitriol 0.25mcg po daily - Folic acid 1mg po daily - Epotin Justino 10,000 units IV MWF History of COPD - Continue Duonebs Q4H [facility] - Breo Ellipta 1 puff INH RQD - Solumedrol IVP 40mg Q8H - Patient reports he only uses albuterol as needed BID - Called pharmacy to confirm COPD medication: Patient is prescribed simbacort inhaler DM TYPE 2 - HgA1C: 9.3 - Glargine increased from 20 to 24 units SC HS - Accuchecks - ISS increased to high intensity coverage - Hypoglycemia protocol HTN - Amlodipine 10mg po daily HLD - Simvastatin NF - Crestor 5mg po HS Prophylaxis - SCDs, Heparin 5000units SC Q12H - Protonix 40mg po daily - Renal low carb diet Patient seen and case discussed in detail with Dr. Annemarie Burks PGY1 <Ivan Sharpe - Last Filed: 08/08/18 17:19> Objective - Vital Signs/Intake and Output Vital Signs (last 24 hours): Temp Pulse Resp BP Pulse Ox 97.8 F 85 16 132/69 97 08/06/18 12:20 08/06/18 12:20 08/06/18 12:20 08/06/18 12:20 08/06/18 12:20 - Labs Labs: 08/06/18 07:55 08/06/18 07:55 PT 13.0 SECONDS (9.7-12.2) H 07/27/18 06:34 INR 1.2 07/27/18 06:34 APTT 35 SECONDS (21-34) H 07/27/18 06:34 Attending/Attestation - Attestation I have personally seen and examined this patient.: Yes I have fully participated in the care of the patient.: Yes I have reviewed all pertinent clinical information, including history, physical exam and plan: Yes Notes (Text): Cough likely secondary to Atelectasis and pleural effusion with Acute COPD Exacerbation
[2018-08-02] MEDS: (Novolin R) Insulin Human Regular 100 units/ml vial SC SCH ×4 (08:44→22:24)
[2018-08-02 09:05] LABS: BANDS 1 % (0-2); LYMPHOCYTE 1 % (20-40); MONOCYTE 3 % (0-10); MYELOCYTE 1 % (0-0); NEUTROPHIL 94 % (50-75); TOTAL CELLS COUNTED 100
[2018-08-02 09:06] LABS: ANISOCYTOSIS SLIGHT; HYPOCHROMIC SLIGHT; MICROCYTOSIS SLIGHT; OVALOCYTES SLIGHT; PLATELET ESTIMATE NORMAL (NORMAL); POIKILOCYTOSIS SLIGHT; TARGET CELLS SLIGHT; TEARDROP CELLS SLIGHT
[2018-08-02 09:07] LABS: LARGE PLATELETS PRESENT
[2018-08-02] MEDS: Pantoprazole 40 mg EC Tab PO SCH (09:11)
[2018-08-02] MEDS: MethylPREDNISolone 40 mg Vial IVP SCH ×2 (09:11→22:23)
--- NOTE | 2018-08-02 09:17 | CP.PCM.PN ---
Subjective - Date & Time of Evaluation Date of Evaluation: 08/02/18 Time of Evaluation: 09:16 - Subjective Subjective: seen and examined s/p hd yesterday denies any cp/sob/dizziness/n/v/d Objective - Vital Signs/Intake and Output Vital Signs (last 24 hours): Temp Pulse Resp BP Pulse Ox 98.1 F 88 20 159/72 H 95 08/02/18 08:00 08/02/18 08:00 08/02/18 08:00 08/02/18 08:00 08/02/18 08:00 Intake and Output: 08/02/18 08/02/18 06:59 18:59 Output Total 100 Balance -100 - Medications Medications: Current Medications Albuterol/Ipratropium (Duoneb 3 Mg/0.5 Mg (3 Ml) Ud) 3 ml IH RQ6 [facility] Last Admin: 08/02/18 07:33 Dose: 3 ml Amlodipine Besylate (Norvasc) 10 mg PO DAILY [facility] Last Admin: 08/02/18 09:11 Dose: 10 mg Calcitriol (Rocaltrol) 0.25 mcg PO DAILY [facility] Last Admin: 08/02/18 09:11 Dose: 0.25 mcg Dextrose (Dextrose 50% Inj) 0 ml IV STAT PRN; Protocol PRN Reason: Hypoglycemia Protocol Dextrose (Glutose 15) 0 gm PO ONCE PRN; Protocol PRN Reason: Hypoglycemia Protocol Docusate Sodium (Colace) 100 mg PO DAILY [facility] Last Admin: 08/02/18 09:11 Dose: 100 mg Epoetin Justino (Procrit) 10,000 unit IV MWF [facility] Last Admin: 08/01/18 15:36 Dose: 10,000 unit Ferric Sodium Gluconate Complex (Ferrlecit) 125 mg IVPB Q24H [facility] Stop: 08/05/18 11:01 Last Admin: 08/01/18 16:28 Dose: 125 mg Folic Acid (Folic Acid) 1 mg PO DAILY [facility] Last Admin: 08/02/18 09:11 Dose: 1 mg Glucagon (Glucagen Diagnostic Kit) 0 mg IM STAT PRN; Protocol PRN Reason: Hypoglycemia Protocol Piperacillin Sod/Tazobactam Sod (Zosyn 2.25 Gm Iv Premix) 2.25 gm in 50 mls @ 100 mls/hr IVPB Q8H [facility]; Protocol Last Admin: 08/02/18 08:44 Dose: 100 mls/hr Vancomycin/Sodium Chloride (Vancomycin 1 Gm/Ns 200 Ml) 1 gm in 200 mls @ 133.333 mls/hr IVPB Q24H [facility]; Protocol Last Admin: 08/01/18 21:00 Dose: 133.333 mls/hr Insulin Glargine (Lantus) 20 unit SC HS [facility] Last Admin: 08/01/18 23:00 Dose: 20 units Insulin Human Regular (Novolin R) 0 unit SC ACHS [facility]; Protocol Last Admin: 08/02/18 08:44 Dose: 6 units Methylprednisolone (Solu-Medrol) 40 mg IVP Q12 [facility] Last Admin: 08/02/18 09:11 Dose: 40 mg Pantoprazole Sodium (Protonix Ec Tab) 40 mg PO DAILY [facility] Last Admin: 08/02/18 09:11 Dose: 40 mg Rosuvastatin Calcium (Crestor) 5 mg PO HS [facility] Last Admin: 08/01/18 22:00 Dose: 5 mg - Labs Labs: 08/02/18 06:28 08/02/18 06:28 PT 13.0 SECONDS (9.7-12.2) H 07/27/18 06:34 INR 1.2 07/27/18 06:34 APTT 35 SECONDS (21-34) H 07/27/18 06:34 - Constitutional Appears: No Acute Distress, Chronically Ill - Head Exam Head Exam: NORMAL INSPECTION, NORMOCEPHALIC - Eye Exam Eye Exam: Normal appearance, PERRL - ENT Exam ENT Exam: Mucous Membranes Moist, Normal Exam - Neck Exam Neck Exam: Full ROM, Normal Inspection - Respiratory Exam Respiratory Exam: Decreased Breath Sounds, NORMAL BREATHING PATTERN - Cardiovascular Exam Cardiovascular Exam: REGULAR RHYTHM, RRR - GI/Abdominal Exam GI & Abdominal Exam: Distended (pd catheter), Soft - Extremities Exam Extremities Exam: Normal Inspection - Neurological Exam Neurological Exam: Alert, Awake - Psychiatric Exam Psychiatric exam: Normal Affect, Normal Mood - Skin Skin Exam: Dry, Intact Assessment and Plan (1) CKD (chronic kidney disease) stage 5, GFR less than 15 ml/min Status: Acute (2) Anemia Status: Acute (3) COPD (chronic obstructive pulmonary disease) Status: Acute - Assessment and Plan (Free Text) Assessment: maintain hd, adequate uf outpt placement on antibiotics per ID, pseudomonas in sputum.
[2018-08-02] MEDS ORDERED: MethylPREDNISolone 40 mg Vial IVP SCH (12:00)
[2018-08-02] MEDS: Ferric Sodium Gluconat Complex 62.5 mg/5 ml Vial IVPB SCH (12:11)
[2018-08-02] MEDS: guaiFENesin 600 mg ER Tab PO SCH ×2 (12:11→23:02)
--- NOTE | 2018-08-02 12:56 | RAD ---
Date of service: 08/02/2018 PROCEDURE: CHEST RADIOGRAPH, 1 VIEW HISTORY: follow up lungs COMPARISON: 07/29/2017. FINDINGS: LUNGS: Interval improvement in lower lobe infiltrates. PLEURA: Decrease in pleural effusions. CARDIOVASCULAR: Atherosclerotic calcifications identified primarily aortic arch. Venous access catheter in stable, satisfactory position. OSSEOUS STRUCTURES: No significant abnormalities. VISUALIZED UPPER ABDOMEN: Normal. OTHER FINDINGS: None. IMPRESSION: Improving consolidative changes (without complete resolution) bilaterally.
--- NOTE | 2018-08-02 21:14 | CP.PCM.PN ---
Subjective - Date & Time of Evaluation Date of Evaluation: 08/02/18 Time of Evaluation: 14:15 - Subjective Subjective: dictated Objective - Vital Signs/Intake and Output Vital Signs (last 24 hours): Temp Pulse Resp BP Pulse Ox 98.8 F 85 18 123/70 96 08/02/18 16:00 08/02/18 16:00 08/02/18 16:00 08/02/18 16:00 08/02/18 16:00 - Medications Medications: Current Medications Albuterol/Ipratropium (Duoneb 3 Mg/0.5 Mg (3 Ml) Ud) 3 ml IH RQ4 [facility] Last Admin: 08/02/18 19:36 Dose: 3 ml Amlodipine Besylate (Norvasc) 10 mg PO DAILY [facility] Last Admin: 08/02/18 09:11 Dose: 10 mg Calcitriol (Rocaltrol) 0.25 mcg PO DAILY [facility] Last Admin: 08/02/18 09:11 Dose: 0.25 mcg Dextrose (Dextrose 50% Inj) 0 ml IV STAT PRN; Protocol PRN Reason: Hypoglycemia Protocol Dextrose (Glutose 15) 0 gm PO ONCE PRN; Protocol PRN Reason: Hypoglycemia Protocol Docusate Sodium (Colace) 100 mg PO DAILY [facility] Last Admin: 08/02/18 09:11 Dose: 100 mg Epoetin Justino (Procrit) 10,000 unit IV MWF [facility] Last Admin: 08/01/18 15:36 Dose: 10,000 unit Ferric Sodium Gluconate Complex (Ferrlecit) 125 mg IVPB Q24H [facility] Stop: 08/05/18 11:01 Last Admin: 08/02/18 12:11 Dose: 125 mg Fluticasone/Vilanterol (Breo Ellipta 100-25 Mcg Inh) 1 puff INH RQD [facility] Folic Acid (Folic Acid) 1 mg PO DAILY [facility] Last Admin: 08/02/18 09:11 Dose: 1 mg Glucagon (Glucagen Diagnostic Kit) 0 mg IM STAT PRN; Protocol PRN Reason: Hypoglycemia Protocol Guaifenesin (Mucinex La) 600 mg PO Q12H [facility] Last Admin: 08/02/18 12:11 Dose: 600 mg Piperacillin Sod/Tazobactam Sod (Zosyn 2.25 Gm Iv Premix) 2.25 gm in 50 mls @ 100 mls/hr IVPB Q8H [facility]; Protocol Last Admin: 08/02/18 17:52 Dose: 100 mls/hr Vancomycin/Sodium Chloride (Vancomycin 1 Gm/Ns 200 Ml) 1 gm in 200 mls @ 133.333 mls/hr IVPB Q24H [facility]; Protocol Last Admin: 08/01/18 21:00 Dose: 133.333 mls/hr Insulin Glargine (Lantus) 24 unit SC HS [facility] Insulin Human Regular (Novolin R) 0 unit SC ACHS [facility]; Protocol Last Admin: 08/02/18 17:00 Dose: 8 units Methylprednisolone (Solu-Medrol) 40 mg IVP Q8 [facility] Pantoprazole Sodium (Protonix Ec Tab) 40 mg PO DAILY [facility] Last Admin: 08/02/18 09:11 Dose: 40 mg Rosuvastatin Calcium (Crestor) 5 mg PO HS [facility] Last Admin: 08/01/18 22:00 Dose: 5 mg - Labs Labs: 08/02/18 06:28 08/02/18 06:28 PT 13.0 SECONDS (9.7-12.2) H 07/27/18 06:34 INR 1.2 07/27/18 06:34 APTT 35 SECONDS (21-34) H 07/27/18 06:34
[2018-08-02] MEDS: (Lantus) Insulin Glargine, Recombinant SC SCH (22:25)
--- NOTE | 2018-08-02 23:51 | PN ---
DATE: 08/02/2018 SUBJECTIVE: The patient was seen today. He does have cough and he seems to be improving. He had hemodialysis yesterday. He denies any chest pain. No shortness of breath. No nausea, no vomiting. No other issues, but he is still with the cough and he has been on vancomycin and Zosyn; the vancomycin level is high, so we have discontinued it. Also, the sputum came out to be just Pseudomonas. PHYSICAL EXAMINATION: VITAL SIGNS: T-max is 98.1, pulse is 88, blood pressure 159/72, respirations are 20, saturations 95. GENERAL: He is a thin-built cachectic male. HEAD: Atraumatic, normocephalic. NECK: Supple. LUNGS: Clear. Decreased breath sounds bilaterally. Occasional rhonchi. Heart: S1, S2, regular. ABDOMEN: Soft, nontender. He has a peritoneal dialysis catheter and he also has a right subclavian catheter. EXTREMITIES: No edema at this time. LABORATORY DATA: Labs are noted. Labs show white count is 19.6 today, hemoglobin 8.9, hematocrit 27.4, platelet count is 215, neutrophils are 94, and bands 1. MEDICATIONS: He is on Solu-Medrol 40 every 8 hours. He does have Pseudomonas in the sputum. Micro peguero, Pseudomonas and I think we should start to taper the steroids. This is sensitive to cefepime should be reported as sensitive to ceftriaxone. Pseudomonas is never sensitive to ceftriaxone, which is reported wrong and needs to be called in to the micro. He is on Zosyn, which also is covering for the Pseudomonas. ASSESSMENT AND PLAN: X-ray shows improvement. Let me see the CAT scan. We should do a chest CT just to see how the lungs are, but he is a dialysis patient, also having Pseudomonas in the sputum. He may need three weeks of treatment for Pseudomonas and probably should be sent to rehab to complete further course of Zosyn. He has been on Zosyn since 07/29/2018 and should discontinue vancomycin at this time. So, he got five days of Zosyn, at least he should get nine more days and to be reevaluated with chest x-ray. If the chest x-ray improves, then probably we can let it go, but generally Pseudomonas needs three weeks of treatment. I would also get a chest x-ray in view of Pseudomonas in the sputum. We will follow and discuss the plan with the primary attending. Melissa Gaitan MD
[2018-08-03] MEDS: Piperacill/Tazo 2.25gm in Dex 2.25 GM/50 ML BAG IVPB SCH ×3 (00:45→19:13)
[2018-08-03] MEDS: Albuterol-Ipratrop 3 mg / 0.5 (3 ml) UD IH SCH ×7 (02:10→23:38)
[2018-08-03] MEDS: MethylPREDNISolone 40 mg Vial IVP SCH ×4 (06:35→23:01)
[2018-08-03 07:40] LABS: BASO % 0.1 % (0.0-2.0); HEMOGLOBIN 8.6 g/dL (12.0-18.0); LYMPH # 0.4 K/uL (1.0-4.3); LYMPH % 2.4 % (20.0-40.0); MEAN CELL VOLUME 96.9 fL (80.0-94.0); MEAN CORPUSCULAR HEMOGLOBIN 32.7 pg (27.0-31.0); MEAN CORPUSCULAR HGB CONC 33.7 g/dL (33.0-37.0); MEAN PLATELET VOLUME 8.1 fL (7.2-11.7); MONO # 0.6 K/uL (0.0-0.8); NEUT # 15.1 K/uL (1.8-7.0); NEUT % 93.5 % (50.0-75.0); NRBC % 0.1 % (0.0-2.0); PLATELET COUNT 210 K/uL (130-400); RBC 2.62 Mil/uL (4.40-5.90); RED CELL DISTRIBUTION WIDTH 16.9 % (11.5-14.5); WHITE BLOOD COUNT 16.1 K/uL (4.8-10.8)
[2018-08-03 08:06] LABS: ALB/GLOB RATIO 1.2 (1.0-2.1); CALCIUM 8.9 mg/dl (8.6-10.4)
[2018-08-03] MEDS: (Novolin R) Insulin Human Regular 100 units/ml vial SC SCH ×4 (08:06→22:10)
--- NOTE | 2018-08-03 09:22 | CP.PCM.PN ---
Subjective - Date & Time of Evaluation Date of Evaluation: 08/03/18 Time of Evaluation: 09:22 - Subjective Subjective: PGY1 Medicine Progress Note for Dr. Bosch Patient was seen and evaluated at bedside this morning. No acute events overnight. No current complaints. Patient tolerating diet. Patient continues to have mild cough. Patient tolerated dialysis today. Patient otherwise denies chest pain, abdominal pain, shortness of breath, back pain, lower extremity pain, numbness/tingling, dizziness, headache, nausea, vomiting, fever, and/or chills. Objective - Vital Signs/Intake and Output Vital Signs (last 24 hours): Temp Pulse Resp BP Pulse Ox 97.9 F 82 20 157/77 H 97 08/03/18 07:20 08/03/18 07:20 08/03/18 07:20 08/03/18 07:20 08/03/18 07:20 Intake and Output: 08/03/18 08/03/18 06:59 18:59 Intake Total 250 Balance 250 - Medications Medications: Current Medications Albuterol/Ipratropium (Duoneb 3 Mg/0.5 Mg (3 Ml) Ud) 3 ml IH RQ4 [facility] Last Admin: 08/03/18 07:37 Dose: 3 ml Amlodipine Besylate (Norvasc) 10 mg PO DAILY [facility] Last Admin: 08/02/18 09:11 Dose: 10 mg Calcitriol (Rocaltrol) 0.25 mcg PO DAILY [facility] Last Admin: 08/02/18 09:11 Dose: 0.25 mcg Dextrose (Dextrose 50% Inj) 0 ml IV STAT PRN; Protocol PRN Reason: Hypoglycemia Protocol Dextrose (Glutose 15) 0 gm PO ONCE PRN; Protocol PRN Reason: Hypoglycemia Protocol Docusate Sodium (Colace) 100 mg PO DAILY [facility] Last Admin: 08/02/18 09:11 Dose: 100 mg Epoetin Justino (Procrit) 10,000 unit IV MWF [facility] Last Admin: 08/01/18 15:36 Dose: 10,000 unit Ferric Sodium Gluconate Complex (Ferrlecit) 125 mg IVPB Q24H [facility] Stop: 08/05/18 11:01 Last Admin: 08/02/18 12:11 Dose: 125 mg Fluticasone/Vilanterol (Breo Ellipta 100-25 Mcg Inh) 1 puff INH RQD [facility] Folic Acid (Folic Acid) 1 mg PO DAILY [facility] Last Admin: 08/02/18 09:11 Dose: 1 mg Glucagon (Glucagen Diagnostic Kit) 0 mg IM STAT PRN; Protocol PRN Reason: Hypoglycemia Protocol Guaifenesin (Mucinex La) 600 mg PO Q12H [facility] Last Admin: 08/02/18 23:02 Dose: 600 mg Piperacillin Sod/Tazobactam Sod (Zosyn 2.25 Gm Iv Premix) 2.25 gm in 50 mls @ 100 mls/hr IVPB Q8H [facility]; Protocol Last Admin: 08/03/18 00:45 Dose: 100 mls/hr Insulin Glargine (Lantus) 24 unit SC HS [facility] Last Admin: 08/02/18 22:25 Dose: 24 units Insulin Human Regular (Novolin R) 0 unit SC ACHS [facility]; Protocol Last Admin: 08/03/18 08:06 Dose: 10 units Methylprednisolone (Solu-Medrol) 40 mg IVP Q8 [facility] Last Admin: 08/03/18 06:35 Dose: 40 mg Pantoprazole Sodium (Protonix Ec Tab) 40 mg PO DAILY [facility] Last Admin: 08/02/18 09:11 Dose: 40 mg Rosuvastatin Calcium (Crestor) 5 mg PO HS [facility] Last Admin: 08/02/18 22:23 Dose: 5 mg - Labs Labs: 08/03/18 07:17 08/03/18 07:17 PT 13.0 SECONDS (9.7-12.2) H 07/27/18 06:34 INR 1.2 07/27/18 06:34 APTT 35 SECONDS (21-34) H 07/27/18 06:34 - Additional Findings Additional findings: - Constitutional Appears: Non-toxic, No Acute Distress - Head Exam Head Exam: NORMAL INSPECTION - Eye Exam Eye Exam: Normal appearance Pupil Exam: PERRL - ENT Exam ENT Exam: Mucous Membranes Moist, Normal Exam - Neck Exam Neck Exam: Full ROM (chest permcath), Normal Inspection - Respiratory Exam Respiratory Exam: Improved breath sounds following duonebs, Rhonchi lower jackson - Cardiovascular Exam Cardiovascular Exam: REGULAR RHYTHM - GI/Abdominal Exam GI & Abdominal Exam: Soft, Normal Bowel Sounds, L abdomen, peritoneal dialysis cath covered w bandage - Extremities Exam Extremities Exam: Full ROM, Normal Inspection - Neurological Exam Neurological Exam: Alert, Awake, Oriented x3 - Skin Skin Exam: Dry, Intact Assessment and Plan - Assessment and Plan (Free Text) Assessment: 82M with a PMHx of CKD admitted s/p permacath 07/25, and peritoneal dialysis cath 07/27 w/ Oleg and 1st time dialysis. Patient has now had 3 sessions total, and is currently pending discharge; pending out-patient dialysis placement. Per Violin Tutor, Maryam is working on getting the schedule for the Patient. Will continue to follow-up regarding Patient's acceptance to dialysis. Cough likely secondary to Atelectasis vs pleural effusion with underlying COPD Exacerbation, improving - 08/02 CXR: improving consolidative changes (without complete resolution) bilaterally - Assess for home-O2 tomorrow - Continue Duonebs Q4H [facility] - Breo Ellipta 1 puff INH RQD - Mucinex 600mg PO Q12H - Continue Lasix 40mg PO daily - Vanco 1mg Daily - Solumedrol IVP 40mg Q8H - Patient with tachycardia and leukocytosis - 07/29 Sputum culture: POSITIVE for Pseudomonas - ID consulted (Dr. Gaitan) recommendations appreciated - Blood cultures negative x72hrs - Urinalysis: unremarkable - Influenza A/B: negative - Antibiotics: Zosyn 2.25g in 50mL IVPB Q8H - Hepatitis panel negative CKD Stage 5 - BUN/Cr monitored - Dialysis yesterday, well tolerated - GFR: 14 - Dr. Dejesus consulted for dialysis access, help appreciated - Dr. Dutton consulted, help appreciated -Dialyze today and Discharge is pending out-patient dialysis placement - Patient tolerated breathing treatments and lasix, - Hepatitis panel negative - Calcitriol 0.25mcg po daily - Folic acid 1mg po daily - Epotin Justino 10,000 units IV MWF History of COPD - Continue Duonebs Q4H [facility] - Breo Ellipta 1 puff INH RQD - Solumedrol IVP 40mg Q8H - Patient reports he only uses albuterol as needed BID - Called pharmacy to confirm COPD medication: Patient is prescribed simbacort inhaler DM TYPE 2 - HgA1C: 9.3 - Glargine increased from 20 to 24 units SC HS - Accuchecks - ISS increased to high intensity coverage - Hypoglycemia protocol HTN - Amlodipine 10mg po daily HLD - Simvastatin NF - Crestor 5mg po HS Prophylaxis - SCDs, Heparin 5000units SC Q12H - Protonix 40mg po daily - Renal low carb diet Patient seen and case discussed in detail with Dr. Annemarie Burks PGY1
[2018-08-03] MEDS ORDERED: Iodixanol 320 MG/ML 100 ML BOTTLE IV ONE (09:41)
[2018-08-03] MEDS: Pantoprazole 40 mg EC Tab PO SCH (10:44)
[2018-08-03] MEDS: guaiFENesin 600 mg ER Tab PO SCH ×2 (11:28→23:01)
[2018-08-03] MEDS: Ferric Sodium Gluconat Complex 62.5 mg/5 ml Vial IVPB SCH (11:31)
[2018-08-03 11:38] LABS: ANISOCYTOSIS SLIGHT; BANDS 4 % (0-2); HYPOCHROMIC SLIGHT; LYMPHOCYTE 2 % (20-40); MONOCYTE 4 % (0-10); NEUTROPHIL 90 % (50-75); PLATELET ESTIMATE NORMAL (NORMAL); POIKILOCYTOSIS SLIGHT; TARGET CELLS SLIGHT; TOTAL CELLS COUNTED 100
--- NOTE | 2018-08-03 14:29 | CT ---
Date of service: 08/03/2018 PROCEDURE: CT Chest with contrast HISTORY: pseudomonas pneumonia COMPARISON: Unenhanced chest CT 06/20/2018. TECHNIQUE: Contiguous axial images were obtained through the chest with intravenous contrast enhancement. Sagittal and coronal reconstructions were performed. IV contrast: Visipaque 320, 100 cc Radiation dose: Total exam DLP = 255.88 mGy-cm. This CT exam was performed using one or more of the following dose reduction techniques: Automated exposure control, adjustment of the mA and/or kV according to patient size, and/or use of iterative reconstruction technique. FINDINGS: LUNGS: Fibrotic pulmonary changes are stable bilaterally, remaining diffuse. Extensive bronchiectasis is again seen affecting right middle lobe and lingula with occasional air-fluid levels associated. Persistent infiltrate affects the right lower lobe and there is extensive debris within the bilateral distal lower lobe central airways as well as the distal right mainstem bronchus and even medium-size right lower lobe bronchi. Remaining central airways appear clear. MEDIASTINUM: Right central venous dialysis catheter is identified in situ. Extensive coronary artery atherosclerosis. Calcific atherosclerotic changes are seen related to the thoracic aorta. No thoracic aortic aneurysm evident once again. Normal sized heart. Main pulmonary artery unremarkable. No vascular congestion. No lymphadenopathy. PLEURA: No pleural fluid. No pneumothorax. BONES: No fracture. No destructive lesion. UPPER ABDOMEN: Incidental tiny lucencies are seen in the liver. Cholelithiasis within a contracted gallbladder. OTHER FINDINGS: None. IMPRESSION: 1. Stable chronic interstitial pulmonary disease including fibrosis and extensive right middle lobe/lingula bronchiectasis. 2. Filtrate/atelectasis right lower lobe base. 3. Debris is identified within the right lower lobe bronchus extending from the distal portion right mainstem through small branches of the right lower lobe central airways. Limited matter debris is seen within small airways at the left lower lobe as well. Consider possible recent aspiration. 4. Incidental cholelithiasis. Few tiny lucencies seen the liver.
--- NOTE | 2018-08-03 15:28 | CP.PCM.PN ---
Subjective - Date & Time of Evaluation Date of Evaluation: 08/03/18 Time of Evaluation: 15:26 - Subjective Subjective: seen at dialysis, feels much better on rx for pseudomonas + culture will eventually have PD training as outpt Objective - Vital Signs/Intake and Output Vital Signs (last 24 hours): Temp Pulse Resp BP Pulse Ox 97.9 F 82 20 157/77 H 97 08/03/18 07:20 08/03/18 07:20 08/03/18 07:20 08/03/18 07:20 08/03/18 07:20 Intake and Output: 08/03/18 08/03/18 06:59 18:59 Intake Total 250 Balance 250 - Medications Medications: Current Medications Albuterol/Ipratropium (Duoneb 3 Mg/0.5 Mg (3 Ml) Ud) 3 ml IH RQ4 [facility] Last Admin: 08/03/18 13:27 Dose: 3 ml Amlodipine Besylate (Norvasc) 10 mg PO DAILY [facility] Last Admin: 08/03/18 10:35 Dose: Not Given Calcitriol (Rocaltrol) 0.25 mcg PO DAILY [facility] Last Admin: 08/03/18 10:40 Dose: 0.25 mcg Dextrose (Dextrose 50% Inj) 0 ml IV STAT PRN; Protocol PRN Reason: Hypoglycemia Protocol Dextrose (Glutose 15) 0 gm PO ONCE PRN; Protocol PRN Reason: Hypoglycemia Protocol Docusate Sodium (Colace) 100 mg PO DAILY [facility] Last Admin: 08/03/18 10:40 Dose: 100 mg Epoetin Justino (Procrit) 10,000 unit IV MWF [facility] Last Admin: 08/01/18 15:36 Dose: 10,000 unit Ferric Sodium Gluconate Complex (Ferrlecit) 125 mg IVPB Q24H [facility] Stop: 08/05/18 11:01 Last Admin: 08/03/18 11:31 Dose: 125 mg Fluticasone/Vilanterol (Breo Ellipta 100-25 Mcg Inh) 1 puff INH RQD [facility] Folic Acid (Folic Acid) 1 mg PO DAILY [facility] Last Admin: 08/03/18 10:40 Dose: 1 mg Glucagon (Glucagen Diagnostic Kit) 0 mg IM STAT PRN; Protocol PRN Reason: Hypoglycemia Protocol Guaifenesin (Mucinex La) 600 mg PO Q12H [facility] Last Admin: 08/03/18 11:28 Dose: 600 mg Piperacillin Sod/Tazobactam Sod (Zosyn 2.25 Gm Iv Premix) 2.25 gm in 50 mls @ 100 mls/hr IVPB Q8H [facility]; Protocol Last Admin: 08/03/18 09:45 Dose: 100 mls/hr Insulin Glargine (Lantus) 24 unit SC HS [facility] Last Admin: 08/02/18 22:25 Dose: 24 units Insulin Human Regular (Novolin R) 0 unit SC ACHS [facility]; Protocol Last Admin: 08/03/18 12:30 Dose: 8 units Methylprednisolone (Solu-Medrol) 40 mg IVP Q8 [facility] Last Admin: 08/03/18 14:44 Dose: 40 mg Pantoprazole Sodium (Protonix Ec Tab) 40 mg PO DAILY [facility] Last Admin: 08/03/18 10:44 Dose: 40 mg Rosuvastatin Calcium (Crestor) 5 mg PO HS [facility] Last Admin: 08/02/18 22:23 Dose: 5 mg - Labs Labs: 08/03/18 07:17 08/03/18 07:17 PT 13.0 SECONDS (9.7-12.2) H 07/27/18 06:34 INR 1.2 07/27/18 06:34 APTT 35 SECONDS (21-34) H 07/27/18 06:34 - Constitutional Appears: No Acute Distress, Chronically Ill - Head Exam Head Exam: ATRAUMATIC, NORMAL INSPECTION - Eye Exam Eye Exam: EOMI, Normal appearance - Neck Exam Neck Exam: Normal Inspection. absent: Tenderness - Respiratory Exam Respiratory Exam: Rhonchi, NORMAL BREATHING PATTERN - Cardiovascular Exam Cardiovascular Exam: REGULAR RHYTHM, +S1 - GI/Abdominal Exam GI & Abdominal Exam: Soft. absent: Tenderness - Extremities Exam Extremities Exam: Normal Inspection. absent: Tenderness - Neurological Exam Neurological Exam: Awake, CN II-XII Intact - Skin Skin Exam: Dry, Warm Assessment and Plan (1) CKD (chronic kidney disease) stage 5, GFR less than 15 ml/min Status: Acute (2) CKD stage 5 secondary to hypertension Status: Acute (3) Pulmonary fibrosis Status: Acute (4) COPD exacerbation Status: Acute (5) ESRD (end stage renal disease) Status: Acute - Assessment and Plan (Free Text) Plan: UF 1000ml IV ABs check iron stores make arrangements for outpt dialysis
[2018-08-03] MEDS: Epoetin Alfa 10,000 unit/ml Dialysis IV SCH (15:40)
[2018-08-03] MEDS: (Lantus) Insulin Glargine, Recombinant SC SCH (23:02)
[2018-08-04] MEDS: Albuterol-Ipratrop 3 mg / 0.5 (3 ml) UD IH SCH ×5 (03:19→20:15)
[2018-08-04] MEDS: MethylPREDNISolone 40 mg Vial IVP SCH ×3 (06:00→21:55)
[2018-08-04 07:30] LABS: ALB/GLOB RATIO 1.3 (1.0-2.1); CALCIUM 8.7 mg/dl (8.6-10.4)
[2018-08-04] MEDS: (Novolin R) Insulin Human Regular 100 units/ml vial SC SCH ×4 (08:52→21:40)
[2018-08-04] MEDS: Fluticasone-Vilanterol 100/25mcg Diskus INH SCH (08:56)
[2018-08-04] MEDS: Ferric Sodium Gluconat Complex 62.5 mg/5 ml Vial IVPB SCH (10:17)
[2018-08-04] MEDS: Pantoprazole 40 mg EC Tab PO SCH (10:17)
[2018-08-04] MEDS: guaiFENesin 600 mg ER Tab PO SCH ×2 (10:37→22:39)
--- NOTE | 2018-08-04 11:29 | CP.PCM.PN ---
Subjective - Date & Time of Evaluation Date of Evaluation: 08/04/18 Time of Evaluation: 11:27 - Subjective Subjective: feels better mild cough, less wheezing BP still high- will add ARB dialysis well tolerated Objective - Vital Signs/Intake and Output Vital Signs (last 24 hours): Temp Pulse Resp BP Pulse Ox 98.1 F 88 20 175/85 H 100 08/04/18 07:20 08/04/18 07:20 08/04/18 07:20 08/04/18 07:20 08/04/18 07:20 Intake and Output: 08/04/18 08/04/18 06:59 18:59 Intake Total 370 Output Total 200 Balance 170 - Medications Medications: Current Medications Albuterol/Ipratropium (Duoneb 3 Mg/0.5 Mg (3 Ml) Ud) 3 ml IH RQ4 [facility] Last Admin: 08/04/18 08:56 Dose: 3 ml Amlodipine Besylate (Norvasc) 10 mg PO DAILY [facility] Last Admin: 08/04/18 10:17 Dose: 10 mg Calcitriol (Rocaltrol) 0.25 mcg PO DAILY [facility] Last Admin: 08/04/18 10:17 Dose: 0.25 mcg Dextrose (Dextrose 50% Inj) 0 ml IV STAT PRN; Protocol PRN Reason: Hypoglycemia Protocol Dextrose (Glutose 15) 0 gm PO ONCE PRN; Protocol PRN Reason: Hypoglycemia Protocol Docusate Sodium (Colace) 100 mg PO DAILY [facility] Last Admin: 08/04/18 10:17 Dose: 100 mg Epoetin Justino (Procrit) 10,000 unit IV MWF [facility] Last Admin: 08/03/18 15:40 Dose: 10,000 unit Ferric Sodium Gluconate Complex (Ferrlecit) 125 mg IVPB Q24H [facility] Stop: 08/05/18 11:01 Last Admin: 08/04/18 10:17 Dose: 125 mg Fluticasone/Vilanterol (Breo Ellipta 100-25 Mcg Inh) 1 puff INH RQD [facility] Last Admin: 08/04/18 08:56 Dose: Not Given Folic Acid (Folic Acid) 1 mg PO DAILY [facility] Last Admin: 08/04/18 10:17 Dose: 1 mg Glucagon (Glucagen Diagnostic Kit) 0 mg IM STAT PRN; Protocol PRN Reason: Hypoglycemia Protocol Guaifenesin (Mucinex La) 600 mg PO Q12H [facility] Last Admin: 08/04/18 10:37 Dose: 600 mg Insulin Glargine (Lantus) 24 unit SC [facility] Last Admin: 08/03/18 23:02 Dose: 24 units Insulin Human Regular (Novolin R) 0 unit SC ACHS [facility]; Protocol Last Admin: 08/04/18 08:52 Dose: 4 units Methylprednisolone (Solu-Medrol) 40 mg IVP Q8 [facility] Last Admin: 08/04/18 06:00 Dose: 40 mg Pantoprazole Sodium (Protonix Ec Tab) 40 mg PO DAILY [facility] Last Admin: 08/04/18 10:17 Dose: 40 mg Rosuvastatin Calcium (Crestor) 5 mg PO HS [facility] Last Admin: 08/03/18 23:01 Dose: 5 mg - Labs Labs: 08/03/18 07:17 08/04/18 06:55 PT 13.0 SECONDS (9.7-12.2) H 07/27/18 06:34 INR 1.2 07/27/18 06:34 APTT 35 SECONDS (21-34) H 07/27/18 06:34 - Constitutional Appears: No Acute Distress, Chronically Ill - Head Exam Head Exam: ATRAUMATIC, NORMAL INSPECTION - Eye Exam Eye Exam: EOMI, Normal appearance - Neck Exam Neck Exam: Normal Inspection. absent: Tenderness - Respiratory Exam Respiratory Exam: Clear to Ausculation Bilateral, NORMAL BREATHING PATTERN - Cardiovascular Exam Cardiovascular Exam: REGULAR RHYTHM, +S1 - GI/Abdominal Exam GI & Abdominal Exam: Soft. absent: Tenderness - Extremities Exam Extremities Exam: Normal Inspection. absent: Tenderness - Neurological Exam Neurological Exam: Awake, CN II-XII Intact - Skin Skin Exam: Dry, Warm Assessment and Plan (1) CKD (chronic kidney disease) stage 5, GFR less than 15 ml/min Status: Acute (2) CKD stage 5 secondary to hypertension Status: Acute (3) Pulmonary fibrosis Status: Acute (4) COPD exacerbation Status: Acute (5) ESRD (end stage renal disease) Status: Acute - Assessment and Plan (Free Text) Plan: add losartan increase UF with dialysis MWF trying to obain outpt dialysis spot/PD training
--- NOTE | 2018-08-04 12:57 | CP.PCM.PN ---
<Lopez Hightower - Last Filed: 08/04/18 13:45> Subjective - Date & Time of Evaluation Date of Evaluation: 08/04/18 Time of Evaluation: 12:55 - Subjective Subjective: HOSPITALIST SERVICE Pt seen and examined at bedside, denies any acute complaints overnight, reports improvedment in breathing, denies chest pain, so fc nv. Pt is still pending outpt HD spot , understands his status and agrees with plan Objective - Vital Signs/Intake and Output Vital Signs (last 24 hours): Temp Pulse Resp BP Pulse Ox 98.1 F 88 20 175/85 H 100 08/04/18 07:20 08/04/18 07:20 08/04/18 07:20 08/04/18 07:20 08/04/18 07:20 Intake and Output: 08/04/18 08/04/18 06:59 18:59 Intake Total 370 Output Total 200 Balance 170 - Medications Medications: Current Medications Albuterol/Ipratropium (Duoneb 3 Mg/0.5 Mg (3 Ml) Ud) 3 ml IH RQ4 [facility] Last Admin: 08/04/18 11:56 Dose: 3 ml Amlodipine Besylate (Norvasc) 10 mg PO DAILY [facility] Last Admin: 08/04/18 10:17 Dose: 10 mg Calcitriol (Rocaltrol) 0.25 mcg PO DAILY [facility] Last Admin: 08/04/18 10:17 Dose: 0.25 mcg Dextrose (Dextrose 50% Inj) 0 ml IV STAT PRN; Protocol PRN Reason: Hypoglycemia Protocol Dextrose (Glutose 15) 0 gm PO ONCE PRN; Protocol PRN Reason: Hypoglycemia Protocol Docusate Sodium (Colace) 100 mg PO DAILY [facility] Last Admin: 08/04/18 10:17 Dose: 100 mg Epoetin Justino (Procrit) 10,000 unit IV MWF [facility] Last Admin: 08/03/18 15:40 Dose: 10,000 unit Ferric Sodium Gluconate Complex (Ferrlecit) 125 mg IVPB Q24H [facility] Stop: 08/05/18 11:01 Last Admin: 08/04/18 10:17 Dose: 125 mg Fluticasone/Vilanterol (Breo Ellipta 100-25 Mcg Inh) 1 puff INH RQD [facility] Last Admin: 08/04/18 08:56 Dose: Not Given Folic Acid (Folic Acid) 1 mg PO DAILY [facility] Last Admin: 08/04/18 10:17 Dose: 1 mg Glucagon (Glucagen Diagnostic Kit) 0 mg IM STAT PRN; Protocol PRN Reason: Hypoglycemia Protocol Guaifenesin (Mucinex La) 600 mg PO Q12H [facility] Last Admin: 08/04/18 10:37 Dose: 600 mg Insulin Glargine (Lantus) 24 unit SC HS [facility] Last Admin: 08/03/18 23:02 Dose: 24 units Insulin Human Regular (Novolin R) 0 unit SC ACHS [facility]; Protocol Last Admin: 08/04/18 11:57 Dose: 12 units Losartan Potassium (Cozaar) 50 mg PO DAILY [facility] Methylprednisolone (Solu-Medrol) 40 mg IVP Q8 [facility] Last Admin: 08/04/18 06:00 Dose: 40 mg Pantoprazole Sodium (Protonix Ec Tab) 40 mg PO DAILY [facility] Last Admin: 08/04/18 10:17 Dose: 40 mg Rosuvastatin Calcium (Crestor) 5 mg PO HS [facility] Last Admin: 08/03/18 23:01 Dose: 5 mg - Labs Labs: 08/03/18 07:17 08/04/18 06:55 PT 13.0 SECONDS (9.7-12.2) H 07/27/18 06:34 INR 1.2 07/27/18 06:34 APTT 35 SECONDS (21-34) H 07/27/18 06:34 - Additional Findings Additional findings: - Constitutional Appears: Non-toxic, No Acute Distress - Head Exam Head Exam: NORMAL INSPECTION - Eye Exam Eye Exam: Normal appearance Pupil Exam: PERRL - ENT Exam ENT Exam: Mucous Membranes Moist, Normal Exam - Neck Exam Neck Exam: Full ROM (chest permcath), Normal Inspection - Respiratory Exam Respiratory Exam: Improved breath sounds following duonebs, Rhonchi lower [place] - Cardiovascular Exam Cardiovascular Exam: REGULAR RHYTHM - GI/Abdominal Exam GI & Abdominal Exam: Soft, Normal Bowel Sounds, L abdomen, peritoneal dialysis cath covered w bandage - Extremities Exam Extremities Exam: Full ROM, Normal Inspection - Neurological Exam Neurological Exam: Alert, Awake, Oriented x3 - Skin Skin Exam: Dry, Intact Assessment and Plan - Assessment and Plan (Free Text) Assessment: 82M with a PMHx of CKD admitted s/p permacath 07/25, and peritoneal dialysis cath 07/27 w/ O[facility] and 1st time dialysis. Patient has now had 3 sessions total, and is currently pending discharge; pending out-patient dialysis placement. Per Financial Institution President, Maryam is working on getting the schedule for the Patient. Will continue to follow-up regarding Patient's acceptance to dialysis. Cough likely secondary to Atelectasis vs pleural effusion with underlying COPD Exacerbation, improving - 08/02 CXR: improving consolidative changes (without complete resolution) bilaterally - Assess for home-O2 - Continue Duonebs Q4H [facility] - Breo Ellipta 1 puff INH RQD - Mucinex 600mg PO Q12H - Continue Lasix 40mg PO daily - Vanco 1mg Daily - Solumedrol IVP 20mg Q8H - Patient with tachycardia and leukocytosis - 07/29 Sputum culture: POSITIVE for Pseudomonas - ID consulted (Dr. Gaitan) recommendations appreciated - Blood cultures negative x72hrs - Urinalysis: unremarkable - Influenza A/B: negative - Antibiotics: Zosyn 2.25g in 50mL IVPB Q8H - Hepatitis panel negative CKD Stage 5 - BUN/Cr monitored - Dialysis yesterday, well tolerated - GFR: 14 - Dr. Dejesus consulted for dialysis access, help appreciated - Dr. Dutton consulted, help appreciated -Dialyze today and Discharge is pending out-patient dialysis placement - Patient tolerated breathing treatments and lasix, - Hepatitis panel negative - Calcitriol 0.25mcg po daily - Folic acid 1mg po daily - Epotin Justino 10,000 units IV MWF History of COPD - Continue Duonebs Q4H [facility] - Breo Ellipta 1 puff INH RQD - Solumedrol IVP 40mg Q8H - Patient reports he only uses albuterol as needed BID - Called pharmacy to confirm COPD medication: Patient is prescribed simbacort inhaler DM TYPE 2 - HgA1C: 9.3 - Glargine increased from 20 to 24 units SC HS - Accuchecks - ISS increased to high intensity coverage - Hypoglycemia protocol HTN - Amlodipine 10mg po daily HLD - Simvastatin NF - Crestor 5mg po HS Prophylaxis - SCDs, Heparin 5000units SC Q12H - Protonix 40mg po daily - Renal low carb diet DISPO: pending outpt HD spot <Anderson Collazo - Last Filed: 08/04/18 14:09> Objective - Vital Signs/Intake and Output Vital Signs (last 24 hours): Temp Pulse Resp BP Pulse Ox 98.1 F 88 20 175/85 H 100 08/04/18 07:20 08/04/18 07:20 08/04/18 07:20 08/04/18 07:20 08/04/18 07:20 Intake and Output: 08/04/18 08/04/18 06:59 18:59 Intake Total 370 Output Total 200 Balance 170 - Medications Medications: Current Medications Albuterol/Ipratropium (Duoneb 3 Mg/0.5 Mg (3 Ml) Ud) 3 ml IH RQ4 [facility] Last Admin: 08/04/18 11:56 Dose: 3 ml Amlodipine Besylate (Norvasc) 10 mg PO DAILY [facility] Last Admin: 08/04/18 10:17 Dose: 10 mg Calcitriol (Rocaltrol) 0.25 mcg PO DAILY [facility] Last Admin: 08/04/18 10:17 Dose: 0.25 mcg Dextrose (Dextrose 50% Inj) 0 ml IV STAT PRN; Protocol PRN Reason: Hypoglycemia Protocol Dextrose (Glutose 15) 0 gm PO ONCE PRN; Protocol PRN Reason: Hypoglycemia Protocol Docusate Sodium (Colace) 100 mg PO DAILY [facility] Last Admin: 08/04/18 10:17 Dose: 100 mg Epoetin Justino (Procrit) 10,000 unit IV MWF [facility] Last Admin: 08/03/18 15:40 Dose: 10,000 unit Ferric Sodium Gluconate Complex (Ferrlecit) 125 mg IVPB Q24H [facility] Stop: 08/05/18 11:01 Last Admin: 08/04/18 10:17 Dose: 125 mg Fluticasone/Vilanterol (Breo Ellipta 100-25 Mcg Inh) 1 puff INH RQD [facility] Last Admin: 08/04/18 08:56 Dose: Not Given Folic Acid (Folic Acid) 1 mg PO DAILY [facility] Last Admin: 08/04/18 10:17 Dose: 1 mg Glucagon (Glucagen Diagnostic Kit) 0 mg IM STAT PRN; Protocol PRN Reason: Hypoglycemia Protocol Guaifenesin (Mucinex La) 600 mg PO Q12H [facility] Last Admin: 08/04/18 10:37 Dose: 600 mg Piperacillin Sod/Tazobactam (Sod 2.25 gm/ Sodium Chloride) 100 mls @ 200 mls/hr IVPB Q8H [facility]; Protocol Insulin Glargine (Lantus) 24 unit SC HS [facility] Last Admin: 08/03/18 23:02 Dose: 24 units Insulin Human Regular (Novolin R) 0 unit SC ACHS [facility]; Protocol Last Admin: 08/04/18 11:57 Dose: 12 units Losartan Potassium (Cozaar) 50 mg PO DAILY [facility] Last Admin: 08/04/18 13:53 Dose: 50 mg Methylprednisolone (Solu-Medrol) 20 mg IVP Q8 [facility] Last Admin: 08/04/18 13:52 Dose: 20 mg Pantoprazole Sodium (Protonix Ec Tab) 40 mg PO DAILY [facility] Last Admin: 08/04/18 10:17 Dose: 40 mg Rosuvastatin Calcium (Crestor) 5 mg PO HS [facility] Last Admin: 08/03/18 23:01 Dose: 5 mg - Labs Labs: 08/03/18 07:17 08/04/18 06:55 PT 13.0 SECONDS (9.7-12.2) H 07/27/18 06:34 INR 1.2 07/27/18 06:34 APTT 35 SECONDS (21-34) H 07/27/18 06:34 Attending/Attestation - Attestation I have personally seen and examined this patient.: Yes I have fully participated in the care of the patient.: Yes I have reviewed all pertinent clinical information, including history, physical exam and plan: Yes Notes (Text): 08/04/18 14:06 Medical attending: Patient was seen and examined by me with the ophthalmic medical technician and agree with the above The patient was not in any acute distress when we came and saw him. He denied fever, he also reported less coughing, and less sputum production now We are still pending on HD placement at this time Anderson collazo
--- NOTE | 2018-08-04 13:04 | CP.PCM.PN ---
Subjective - Date & Time of Evaluation Date of Evaluation: 08/04/18 Time of Evaluation: 13:00 - Subjective Subjective: DICTATED Objective - Vital Signs/Intake and Output Vital Signs (last 24 hours): Temp Pulse Resp BP Pulse Ox 98.1 F 88 20 175/85 H 100 08/04/18 07:20 08/04/18 07:20 08/04/18 07:20 08/04/18 07:20 08/04/18 07:20 Intake and Output: 08/04/18 08/04/18 06:59 18:59 Intake Total 370 Output Total 200 Balance 170 - Medications Medications: Current Medications Albuterol/Ipratropium (Duoneb 3 Mg/0.5 Mg (3 Ml) Ud) 3 ml IH RQ4 [facility] Last Admin: 08/04/18 11:56 Dose: 3 ml Amlodipine Besylate (Norvasc) 10 mg PO DAILY [facility] Last Admin: 08/04/18 10:17 Dose: 10 mg Calcitriol (Rocaltrol) 0.25 mcg PO DAILY [facility] Last Admin: 08/04/18 10:17 Dose: 0.25 mcg Dextrose (Dextrose 50% Inj) 0 ml IV STAT PRN; Protocol PRN Reason: Hypoglycemia Protocol Dextrose (Glutose 15) 0 gm PO ONCE PRN; Protocol PRN Reason: Hypoglycemia Protocol Docusate Sodium (Colace) 100 mg PO DAILY [facility] Last Admin: 08/04/18 10:17 Dose: 100 mg Epoetin Justino (Procrit) 10,000 unit IV MWF [facility] Last Admin: 08/03/18 15:40 Dose: 10,000 unit Ferric Sodium Gluconate Complex (Ferrlecit) 125 mg IVPB Q24H [facility] Stop: 08/05/18 11:01 Last Admin: 08/04/18 10:17 Dose: 125 mg Fluticasone/Vilanterol (Breo Ellipta 100-25 Mcg Inh) 1 puff INH RQD [facility] Last Admin: 08/04/18 08:56 Dose: Not Given Folic Acid (Folic Acid) 1 mg PO DAILY [facility] Last Admin: 08/04/18 10:17 Dose: 1 mg Glucagon (Glucagen Diagnostic Kit) 0 mg IM STAT PRN; Protocol PRN Reason: Hypoglycemia Protocol Guaifenesin (Mucinex La) 600 mg PO Q12H [facility] Last Admin: 02/07/19 10:37 Dose: 600 mg Insulin Glargine (Lantus) 24 unit SC [facility] Last Admin: 08/03/18 23:02 Dose: 24 units Insulin Human Regular (Novolin R) 0 unit SC [facility]; Protocol Last Admin: 08/04/18 11:57 Dose: 12 units Losartan Potassium (Cozaar) 50 mg PO DAILY [facility] Methylprednisolone (Solu-Medrol) 40 mg IVP Q8 [facility] Last Admin: 08/04/18 06:00 Dose: 40 mg Pantoprazole Sodium (Protonix Ec Tab) 40 mg PO DAILY [facility] Last Admin: 08/04/18 10:17 Dose: 40 mg Rosuvastatin Calcium (Crestor) 5 mg PO [facility] Last Admin: 08/03/18 23:01 Dose: 5 mg - Labs Labs: 08/03/18 07:17 08/04/18 06:55 PT 13.0 SECONDS (9.7-12.2) H 07/27/18 06:34 INR 1.2 07/27/18 06:34 APTT 35 SECONDS (21-34) H 07/27/18 06:34
[2018-08-04] MEDS: Piperacillin/Tazobact 2.25 GM in Sodium Chloride 100 ML IVPB SCH ×2 (15:04→21:54)
--- NOTE | 2018-08-04 19:01 | PN ---
DATE: 08/04/2018 SUBJECTIVE: The patient is feeling better. He is still with some cough. He says he is back to his normal, not coughing much, but he has a right-sided Shiley catheter as well as he has an abdominal catheter at this time, resting there. I am not sure if there is a catheter underneath. PHYSICAL EXAMINATION: VITAL SIGNS: T-max is 98.1, blood pressure is 175/85, respirations are 20, pulse 88. HEENT: Head is atraumatic, normocephalic. NECK: Supple. LUNGS: Clear. No crackles or rales present at that time. He is coughing hard. CARDIOPULMONARY: S1, S2, and is regular. ABDOMEN: Soft, nontender. No guarding. No rigidity present. He does have a catheter there. EXTREMITIES: Have no edema. ASSESSMENT AND PLAN: He has renal insufficiency, end-stage renal disease. He now has a dialysis catheter and also has hypertension. He has history of pulmonary fibrosis, and we did a CAT scan yesterday. CAT scan shows stable chronic interstitial pulmonary disease including fibrosis and extensive right middle lobe and lingular bronchiectasis, infiltrate versus atelectasis. Right lower lobe debris is identified within right lower lobe bronchus extending from distal portion, right mainstem through small bronchus of the right lower centrally limited matter debris is seen within small area of the left lower lobe as well as consider possible recent aspiration, incidentally cholelithiasis, few tiny lucency seen in the liver. So at this time, I would renew the Zosyn, and we will continue that and he did receive for seven days, maybe we will give it for another week. If he does not want to stay, maybe we can give Fortaz or Maxipime 2 g after each dialysis for another week to 10 days. The patient has bronchiectasis, Pseudomonas in the sputum, pulmonary fibrosis, and has aspiration pneumonia with end-stage renal disease. Melissa Gaitan MD
[2018-08-04] MEDS: (Lantus) Insulin Glargine, Recombinant SC SCH (21:56)
[2018-08-05] MEDS: Albuterol-Ipratrop 3 mg / 0.5 (3 ml) UD IH SCH ×7 (00:35→23:52)
[2018-08-05] MEDS: Piperacillin/Tazobact 2.25 GM in Sodium Chloride 100 ML IVPB SCH ×3 (05:27→22:15)
[2018-08-05] MEDS: MethylPREDNISolone 40 mg Vial IVP SCH ×3 (05:27→22:14)
--- NOTE | 2018-08-05 07:02 | CP.PCM.PN ---
<Elda Lu - Last Filed: 08/05/18 11:21> Subjective - Date & Time of Evaluation Date of Evaluation: 08/05/18 Time of Evaluation: 07:30 - Subjective Subjective: Patient examined at bedside. No acute overnight events. Pt reports he has a sore throat due to dry heat in room. Reports cough, non-productive, no SOB, chest pain, abdominal pain. Pt reports he is being dialyzed via his shiley, and will be discharged to continue HD through [facility] while awaiting instruction to use peritoneal catheter. Objective - Vital Signs/Intake and Output Vital Signs (last 24 hours): Temp Pulse Resp BP Pulse Ox 98.1 F 88 20 137/73 95 08/04/18 23:00 08/04/18 23:00 08/04/18 23:00 08/04/18 23:00 08/04/18 23:00 Intake and Output: 08/05/18 08/05/18 06:59 18:59 Intake Total 100 Balance 100 - Medications Medications: Current Medications Albuterol/Ipratropium (Duoneb 3 Mg/0.5 Mg (3 Ml) Ud) 3 ml IH RQ4 [facility] Last Admin: 08/05/18 04:00 Dose: Not Given Amlodipine Besylate (Norvasc) 10 mg PO DAILY [facility] Last Admin: 08/04/18 10:17 Dose: 10 mg Calcitriol (Rocaltrol) 0.25 mcg PO DAILY [facility] Last Admin: 08/04/18 10:17 Dose: 0.25 mcg Dextrose (Dextrose 50% Inj) 0 ml IV STAT PRN; Protocol PRN Reason: Hypoglycemia Protocol Dextrose (Glutose 15) 0 gm PO ONCE PRN; Protocol PRN Reason: Hypoglycemia Protocol Docusate Sodium (Colace) 100 mg PO DAILY [facility] Last Admin: 08/04/18 10:17 Dose: 100 mg Epoetin Justino (Procrit) 10,000 unit IV MWF [facility] Last Admin: 08/03/18 15:40 Dose: 10,000 unit Ferric Sodium Gluconate Complex (Ferrlecit) 125 mg IVPB Q24H [facility] Stop: 08/05/18 11:01 Last Admin: 08/04/18 10:17 Dose: 125 mg Fluticasone/Vilanterol (Breo Ellipta 100-25 Mcg Inh) 1 puff INH RQD [facility] Last Admin: 08/04/18 08:56 Dose: Not Given Folic Acid (Folic Acid) 1 mg PO DAILY [facility] Last Admin: 08/04/18 10:17 Dose: 1 mg Glucagon (Glucagen Diagnostic Kit) 0 mg IM STAT PRN; Protocol PRN Reason: Hypoglycemia Protocol Guaifenesin (Mucinex La) 600 mg PO Q12H [facility] Last Admin: 08/04/18 22:39 Dose: 600 mg Piperacillin Sod/Tazobactam (Sod 2.25 gm/ Sodium Chloride) 100 mls @ 200 mls/hr IVPB Q8H [facility]; Protocol Last Admin: 08/05/18 05:27 Dose: 200 mls/hr Insulin Glargine (Lantus) 24 unit SC HS [facility] Last Admin: 08/04/18 21:56 Dose: 24 units Insulin Human Regular (Novolin R) 0 unit SC ACHS [facility]; Protocol Last Admin: 08/04/18 21:40 Dose: Not Given Losartan Potassium (Cozaar) 50 mg PO DAILY [facility] Last Admin: 08/04/18 13:53 Dose: 50 mg Methylprednisolone (Solu-Medrol) 20 mg IVP Q8 [facility] Last Admin: 08/05/18 05:27 Dose: 20 mg Pantoprazole Sodium (Protonix Ec Tab) 40 mg PO DAILY [facility] Last Admin: 08/04/18 10:17 Dose: 40 mg Rosuvastatin Calcium (Crestor) 5 mg PO HS [facility] Last Admin: 08/04/18 21:56 Dose: 5 mg - Labs Labs: 08/03/18 07:17 08/04/18 06:55 PT 13.0 SECONDS (9.7-12.2) H 07/27/18 06:34 INR 1.2 07/27/18 06:34 APTT 35 SECONDS (21-34) H 07/27/18 06:34 - Constitutional Appears: Non-toxic, No Acute Distress - Head Exam Head Exam: ATRAUMATIC, NORMAL INSPECTION, NORMOCEPHALIC - Eye Exam Eye Exam: EOMI, Normal appearance - ENT Exam ENT Exam: Mucous Membranes Moist, Normal Exam - Neck Exam Neck Exam: Normal Inspection Additional comments: right shiley, [place] clean/dry/intact; no erythema - Respiratory Exam Respiratory Exam: Decreased Breath Sounds, Rales, NORMAL BREATHING PATTERN. absent: Wheezes - Cardiovascular Exam Cardiovascular Exam: REGULAR RHYTHM. absent: Tachycardia - GI/Abdominal Exam GI & Abdominal Exam: Soft, Normal Bowel Sounds. absent: Tenderness Additional comments: peritoneal catheter site bandaged, c/d/i - Extremities Exam Extremities Exam: Normal Inspection. absent: Calf Tenderness, Pedal Edema - Back Exam Back Exam: NORMAL INSPECTION - Neurological Exam Neurological Exam: Alert, Awake, Oriented x3 - Psychiatric Exam Psychiatric exam: Normal Affect, Normal Mood - Skin Skin Exam: Dry, Intact, Normal Color, Warm Assessment and Plan - Assessment and Plan (Free Text) Plan: Cough likely secondary to Atelectasis vs pleural effusion with underlying COPD Exacerbation, improving - Chest CT(08/02): chronic stable pulm disease including fibrosis and right middle lobe/lingula bronchiectasis. Filtrate atelectasis RLL. Debris in RLL bronchus from distal right mainstem through small branches of RLL central airways. Limited matter debris LLL, possible aspiration - Assess for home-O2 - Continue Duonebs Q4H [facility] - Breo Ellipta 1 puff INH RQD - Mucinex 600mg PO Q12H - Vanco 1mg Daily - Solumedrol IVP 20mg Q8H - leukocytosis, worsening - 07/29 Sputum culture: POSITIVE for Pseudomonas - ID consulted (Dr. Gaitan) recommendations appreciated - Blood cultures negative - Urinalysis: unremarkable - Influenza A/B: negative - Antibiotics: Zosyn 2.25g in 50mL IVPB Q8H resumed per ID 07/[address] findings, transition to PO pending placement CKD Stage 5 - BUN/Cr monitored - Dialysis MWF - GFR: 24 - Dr. Dejesus consulted for dialysis access, help appreciated -right shiley being used for HD, peritoneal not yet in use - Dr. Dutton consulted, help appreciated -Dialyze today and Discharge is pending out-patient dialysis placement - Cozaar added 50mg QD - Calcitriol 0.25mcg po daily - Folic acid 1mg po daily - Ferrlecit 125mg QD - Procrit 10,000 units IV MWF History of COPD - Continue Duonebs Q4H [facility] - Breo Ellipta 1 puff INH RQD - Solumedrol IVP 20mg Q8H - Patient home med, simbicort inhaler DM TYPE 2 - HgA1C: 9.3 - Glargine 24 units SC HS - Accuchecks - ISS increased to high intensity coverage - Hypoglycemia protocol HTN - Amlodipine 10mg po daily - Cozaar 50mg PO QD HLD - Crestor 5mg po HS in lieu of home simvastatin Prophylaxis - SCDs, resumed Heparin 5000units SC Q12H - Protonix 40mg po daily - Renal low carb diet Dispo: Pending placement. Transition to PO abx per Dr. Arnie thomas Discussed w/ Dr. Bosch -Elda Lu, PGY-1 <Anderson Bosch H - Last Filed: 08/05/18 16:24> Objective - Vital Signs/Intake and Output Vital Signs (last 24 hours): Temp Pulse Resp BP Pulse Ox 97.2 F L 85 19 147/74 100 08/05/18 12:30 08/05/18 12:30 08/05/18 12:30 08/05/18 12:30 08/05/18 12:30 Intake and Output: 08/05/18 08/05/18 06:59 18:59 Intake Total 100 Balance 100 - Medications Medications: Current Medications Albuterol/Ipratropium (Duoneb 3 Mg/0.5 Mg (3 Ml) Ud) 3 ml IH RQ4 [facility] Last Admin: 08/05/18 11:14 Dose: Not Given Amlodipine Besylate (Norvasc) 10 mg PO DAILY [facility] Last Admin: 08/05/18 11:43 Dose: Not Given Benzocaine/Menthol (Cepacol Sore Throat) 1 [place] MT Q4H PRN PRN Reason: Sore Throat Calcitriol (Rocaltrol) 0.25 mcg PO DAILY [facility] Last Admin: 08/05/18 11:44 Dose: Not Given Dextrose (Dextrose 50% Inj) 0 ml IV STAT PRN; Protocol PRN Reason: Hypoglycemia Protocol Dextrose (Glutose 15) 0 gm PO ONCE PRN; Protocol PRN Reason: Hypoglycemia Protocol Docusate Sodium (Colace) 100 mg PO DAILY [facility] Last Admin: 08/05/18 11:43 Dose: Not Given Epoetin Justino (Procrit) 10,000 unit IV MWF [facility] Last Admin: 08/05/18 11:37 Dose: 10,000 unit Fluticasone/Vilanterol (Breo Ellipta 100-25 Mcg Inh) 1 puff INH RQD [facility] Last Admin: 08/05/18 11:14 Dose: Not Given Folic Acid (Folic Acid) 1 mg PO DAILY [facility] Last Admin: 08/05/18 11:43 Dose: Not Given Glucagon (Glucagen Diagnostic Kit) 0 mg IM STAT PRN; Protocol PRN Reason: Hypoglycemia Protocol Guaifenesin (Mucinex La) 600 mg PO Q12H [facility] Last Admin: 08/05/18 11:43 Dose: Not Given Heparin Sodium (Porcine) (Heparin) 5,000 units SC Q12 [facility] Piperacillin Sod/Tazobactam (Sod 2.25 gm/ Sodium Chloride) 100 mls @ 200 mls/hr IVPB Q8H [facility]; Protocol Last Admin: 08/05/18 15:45 Dose: 200 mls/hr Insulin Glargine (Lantus) 24 unit SC HS [facility] Last Admin: 08/04/18 21:56 Dose: 24 units Insulin Human Regular (Novolin R) 0 unit SC ACHS [facility]; Protocol Last Admin: 08/05/18 13:10 Dose: 2 units Losartan Potassium (Cozaar) 50 mg PO DAILY [facility] Last Admin: 08/05/18 11:43 Dose: Not Given Methylprednisolone (Solu-Medrol) 20 mg IVP Q8 [facility] Last Admin: 08/05/18 13:10 Dose: 20 mg Pantoprazole Sodium (Protonix Ec Tab) 40 mg PO DAILY [facility] Last Admin: 08/05/18 11:43 Dose: Not Given Rosuvastatin Calcium (Crestor) 5 mg PO HS [facility] Last Admin: 08/04/18 21:56 Dose: 5 mg - Labs Labs: 08/05/18 07:43 08/05/18 07:43 PT 13.0 SECONDS (9.7-12.2) H 07/27/18 06:34 INR 1.2 07/27/18 06:34 APTT 35 SECONDS (21-34) H 07/27/18 06:34 Attending/Attestation - Attestation I have personally seen and examined this patient.: Yes I have fully participated in the care of the patient.: Yes I have reviewed all pertinent clinical information, including history, physical exam and plan: Yes Notes (Text): 08/05/18 16:22 Medical attending: Patient was seen and examined by me. Agree with the above note by the resident The patient was not in any acute distress when I came and saw with the medical residents this morning He was having HD and tolerating this well. We are still pending on the approval for patient to have dialysis center Anderson Bosch
[2018-08-05] MEDS ORDERED: Benzocaine/Menthol (Cepacol) Lozenge MT PRN (07:44)
[2018-08-05 07:52] LABS: BASO % 0.2 % (0.0-2.0); HEMOGLOBIN 9.3 g/dL (12.0-18.0); LYMPH # 0.3 K/uL (1.0-4.3); LYMPH % 2.1 % (20.0-40.0); MEAN CORPUSCULAR HGB CONC 33.3 g/dL (33.0-37.0); MONO # 0.8 K/uL (0.0-0.8); MONO % 4.8 % (0.0-10.0); NEUT # 15.6 K/uL (1.8-7.0); NEUT % 92.9 % (50.0-75.0); NRBC % 0.2 % (0.0-2.0); PLATELET COUNT 205 K/uL (130-400); RBC 2.82 Mil/uL (4.40-5.90); RED CELL DISTRIBUTION WIDTH 17.5 % (11.5-14.5); WHITE BLOOD COUNT 16.8 K/uL (4.8-10.8)
[2018-08-05 08:01] LABS: MEAN CELL VOLUME 99.2 fL (80.0-94.0)
[2018-08-05 08:04] LABS: ALB/GLOB RATIO 1.3 (1.0-2.1); ALBUMIN 2.9 g/dL (3.5-5.0); CALCIUM 8.5 mg/dl (8.6-10.4)
[2018-08-05] MEDS: (Novolin R) Insulin Human Regular 100 units/ml vial SC SCH ×4 (08:41→22:09)
[2018-08-05 09:51] LABS: ANISOCYTOSIS SLIGHT; BANDS 4 % (0-2); HYPOCHROMIC SLIGHT; LYMPHOCYTE 2 % (20-40); MONOCYTE 2 % (0-10); NEUTROPHIL 92 % (50-75); PLATELET ESTIMATE NORMAL (NORMAL); POIKILOCYTOSIS SLIGHT; TEARDROP CELLS SLIGHT; TOTAL CELLS COUNTED 100
[2018-08-05 09:52] LABS: MICROCYTOSIS SLIGHT; POLYCHROMIC SLIGHT
[2018-08-05] MEDS: Fluticasone-Vilanterol 100/25mcg Diskus INH SCH (11:14)
[2018-08-05] MEDS: Epoetin Alfa 10,000 unit/ml Dialysis IV SCH (11:37)
[2018-08-05] MEDS: guaiFENesin 600 mg ER Tab PO SCH ×2 (11:43→22:33)
[2018-08-05] MEDS: Pantoprazole 40 mg EC Tab PO SCH (11:43)
--- NOTE | 2018-08-05 13:13 | CP.PCM.PN ---
Subjective - Date & Time of Evaluation Date of Evaluation: 08/05/18 Time of Evaluation: 13:11 - Subjective Subjective: feels better BP better controlled outpt dialysis spot obtained better appetite less dyspnea Objective - Vital Signs/Intake and Output Vital Signs (last 24 hours): Temp Pulse Resp BP Pulse Ox 97.2 F L 85 19 147/74 100 08/05/18 12:30 08/05/18 12:30 08/05/18 12:30 08/05/18 12:30 08/05/18 12:30 Intake and Output: 08/05/18 08/05/18 06:59 18:59 Intake Total 100 Balance 100 - Medications Medications: Current Medications Albuterol/Ipratropium (Duoneb 3 Mg/0.5 Mg (3 Ml) Ud) 3 ml IH RQ4 [facility] Last Admin: 08/05/18 11:14 Dose: Not Given Amlodipine Besylate (Norvasc) 10 mg PO DAILY [facility] Last Admin: 08/05/18 11:43 Dose: Not Given Benzocaine/Menthol (Cepacol Sore Throat) 1 k[place] MT Q4H PRN PRN Reason: Sore Throat Calcitriol (Rocaltrol) 0.25 mcg PO DAILY [facility] Last Admin: 08/05/18 11:44 Dose: Not Given Dextrose (Dextrose 50% Inj) 0 ml IV STAT PRN; Protocol PRN Reason: Hypoglycemia Protocol Dextrose (Glutose 15) 0 gm PO ONCE PRN; Protocol PRN Reason: Hypoglycemia Protocol Docusate Sodium (Colace) 100 mg PO DAILY [facility] Last Admin: 08/05/18 11:43 Dose: Not Given Epoetin Justino (Procrit) 10,000 unit IV MWF [facility] Last Admin: 08/05/18 11:37 Dose: 10,000 unit Fluticasone/Vilanterol (Breo Ellipta 100-25 Mcg Inh) 1 puff INH RQD [facility] Last Admin: 08/05/18 11:14 Dose: Not Given Folic Acid (Folic Acid) 1 mg PO DAILY [facility] Last Admin: 08/05/18 11:43 Dose: Not Given Glucagon (Glucagen Diagnostic Kit) 0 mg IM STAT PRN; Protocol PRN Reason: Hypoglycemia Protocol Guaifenesin (Mucinex La) 600 mg PO Q12H [facility] Last Admin: 08/05/18 11:43 Dose: Not Given Heparin Sodium (Porcine) (Heparin) 5,000 units SC Q12 [facility] Piperacillin Sod/Tazobactam (Sod 2.25 gm/ Sodium Chloride) 100 mls @ 200 mls/hr IVPB Q8H [facility]; Protocol Last Admin: 08/05/18 05:27 Dose: 200 mls/hr Insulin Glargine (Lantus) 24 unit SC HS [facility] Last Admin: 08/04/18 21:56 Dose: 24 units Insulin Human Regular (Novolin R) 0 unit SC ACHS [facility]; Protocol Last Admin: 08/05/18 08:41 Dose: 4 units Losartan Potassium (Cozaar) 50 mg PO DAILY [facility] Last Admin: 08/05/18 11:43 Dose: Not Given Methylprednisolone (Solu-Medrol) 20 mg IVP Q8 [facility] Last Admin: 08/05/18 05:27 Dose: 20 mg Pantoprazole Sodium (Protonix Ec Tab) 40 mg PO DAILY [facility] Last Admin: 08/05/18 11:43 Dose: Not Given Rosuvastatin Calcium (Crestor) 5 mg PO HS [facility] Last Admin: 08/04/18 21:56 Dose: 5 mg - Labs Labs: 08/05/18 07:43 08/05/18 07:43 PT 13.0 SECONDS (9.7-12.2) H 07/27/18 06:34 INR 1.2 07/27/18 06:34 APTT 35 SECONDS (21-34) H 07/27/18 06:34 - Constitutional Appears: No Acute Distress, Chronically Ill - Head Exam Head Exam: ATRAUMATIC, NORMAL INSPECTION - Eye Exam Eye Exam: EOMI, Normal appearance - Neck Exam Neck Exam: Normal Inspection. absent: Tenderness - Respiratory Exam Respiratory Exam: Clear to Ausculation Bilateral, NORMAL BREATHING PATTERN - Cardiovascular Exam Cardiovascular Exam: REGULAR RHYTHM, +S1 - GI/Abdominal Exam GI & Abdominal Exam: Soft. absent: Tenderness - Extremities Exam Extremities Exam: Normal Inspection. absent: Tenderness - Neurological Exam Neurological Exam: Awake, CN II-XII Intact - Skin Skin Exam: Dry, Warm Assessment and Plan (1) CKD (chronic kidney disease) stage 5, GFR less than 15 ml/min Status: Acute (2) CKD stage 5 secondary to hypertension Status: Acute (3) Pulmonary fibrosis Status: Acute (4) COPD exacerbation Status: Acute (5) ESRD (end stage renal disease) Status: Acute - Assessment and Plan (Free Text) Plan: dialysis in AM same meds outpatient dialysis arranged
[2018-08-05] MEDS: Ferric Sodium Gluconat Complex 62.5 mg/5 ml Vial IVPB SCH (15:45)
[2018-08-05] MEDS: (Lantus) Insulin Glargine, Recombinant SC SCH (22:33)
[2018-08-06] MEDS: Albuterol-Ipratrop 3 mg / 0.5 (3 ml) UD IH SCH ×3 (03:25→11:37)
[2018-08-06] MEDS: Piperacillin/Tazobact 2.25 GM in Sodium Chloride 100 ML IVPB SCH (06:03)
[2018-08-06] MEDS: MethylPREDNISolone 40 mg Vial IVP SCH (06:04)
[2018-08-06] MEDS: Fluticasone-Vilanterol 100/25mcg Diskus INH SCH (07:45)
[2018-08-06 08:05] LABS: BASO % 0.3 % (0.0-2.0); EOS % 0.1 % (0.0-4.0); LYMPH # 0.5 K/uL (1.0-4.3); LYMPH % 3.1 % (20.0-40.0); MEAN CORPUSCULAR HEMOGLOBIN 33.5 pg (27.0-31.0); MEAN CORPUSCULAR HGB CONC 32.9 g/dL (33.0-37.0); MEAN PLATELET VOLUME 8.1 fL (7.2-11.7); MONO # 0.8 K/uL (0.0-0.8); MONO % 5.6 % (0.0-10.0); NEUT # 13.8 K/uL (1.8-7.0); NEUT % 90.9 % (50.0-75.0); NRBC % 0.4 % (0.0-2.0); PLATELET COUNT 150 K/uL (130-400); RBC 2.98 Mil/uL (4.40-5.90); RED CELL DISTRIBUTION WIDTH 18.8 % (11.5-14.5); WHITE BLOOD COUNT 15.1 K/uL (4.8-10.8)
[2018-08-06 08:13] LABS: MEAN CELL VOLUME 101.7 fL (80.0-94.0)
--- NOTE | 2018-08-06 08:30 | CP.PCM.DIS ---
Provider - Provider Date of Admission: 07/25/18 12:22 Attending physician: Anderson Bosch DO Consults: 07/25/18 10:49 Physician Consult Stat Comment: [email or web address] access Consulting Provider: Artis Dejesus Jr. Consulting Physician: Artis Dejesus Jr. Reason for Consult: vascular surgery Additional Comments: spoken with 07/25/18 12:26 Nephrology Consult Stat Comment: Consulting Provider: Greg Dutton Consulting Physician: Greg Dutton Reason for Consult: Chronic renal failure need dialysis 08/01/18 14:02 Physician Consult Routine Comment: Consulting Provider: Melissa Gaitan Consulting Physician: Melissa Gaitan Reason for Consult: + pseudomonas in sputum Time Spent in preparation of Discharge (in minutes): 29 Diagnosis - Discharge Diagnosis (1) ESRD (end stage renal disease) Status: Acute (2) Pulmonary fibrosis Status: Chronic (3) Pneumonia Status: Resolved Hospital Course - Lab Results Lab Results: Micro Results 07/29/18 17:05 Blood Blood Culture - Final NO GROWTH AFTER 5 DAYS 07/29/18 17:05 Blood Gram Stain - Final TEST NOT PERFORMED 07/29/18 17:05 Blood Blood Culture - Final NO GROWTH AFTER 5 DAYS 07/29/18 17:05 Blood Gram Stain - Final TEST NOT PERFORMED 07/29/18 16:56 Sputum Gram Stain - Final 07/29/18 16:56 Sputum Sputum Culture - Final Pseudomonas Aeruginosa 07/30/18 07:02 Urine,Clean Catch Urine Culture - Final No Growth (<1,000 CFU/ML) Most Recent Lab Values WBC 15.1 K/uL (4.8-10.8) H 08/06/18 07:55 RBC 2.98 Mil/uL (4.40-5.90) L 08/06/18 07:55 Hgb 10.0 g/dL (12.0-18.0) L 08/06/18 07:55 Hct 30.3 % (35.0-51.0) L 08/06/18 07:55 MCV 101.7 fL (80.0-94.0) H D 08/06/18 07:55 MCH 33.5 pg (27.0-31.0) H 08/06/18 07:55 MCHC 32.9 g/dL (33.0-37.0) L 08/06/18 07:55 RDW 18.8 % (11.5-14.5) H 08/06/18 07:55 Plt Count 150 K/uL (130-400) 08/06/18 07:55 MPV 8.1 fL (7.2-11.7) 08/06/18 07:55 Neut % (Auto) 90.9 % (50.0-75.0) H 08/06/18 07:55 Lymph % (Auto) 3.1 % (20.0-40.0) L 08/06/18 07:55 [place] % (Auto) 5.6 % (0.0-10.0) 08/06/18 07:55 Eos % (Auto) 0.1 % (0.0-4.0) 08/06/18 07:55 Baso % (Auto) 0.3 % (0.0-2.0) 08/06/18 07:55 Neut # (Auto) 13.8 K/uL (1.8-7.0) H 08/06/18 07:55 Lymph # (Auto) 0.5 K/uL (1.0-4.3) L 08/06/18 07:55 [place] # (Auto) 0.8 K/uL (0.0-0.8) 08/06/18 07:55 Eos # (Auto) 0.0 K/uL (0.0-0.7) 08/06/18 07:55 Baso # (Auto) 0.0 K/uL (0.0-0.2) 08/06/18 07:55 Neutrophils % (Manual) 92 % (50-75) H 08/05/18 07:43 Band Neutrophils % 4 % (0-2) H 08/05/18 07:43 Lymphocytes % (Manual) 2 % (20-40) L 08/05/18 07:43 Monocytes % (Manual) 2 % (0-10) 08/05/18 07:43 Basophils % (Manual) 1 % (0-2) 07/26/18 06:32 Myelocytes % 1 % (0-0) H 08/02/18 06:28 Nucleated RBC % 1 % (0-0) H 07/30/18 07:02 Platelet Estimate Normal (NORMAL) 08/05/18 07:43 Plt Clumps, EDTA Present 07/31/18 08:10 Large Platelets Present 08/02/18 06:28 Polychromasia Slight 08/05/18 07:43 Hypochromasia (manual) Slight 08/05/18 07:43 Poikilocytosis (manual Slight 08/05/18 07:43 Anisocytosis (manual) Slight 08/05/18 07:43 Microcytosis (manual) Slight 08/05/18 07:43 Macrocytosis (manual) Slight 08/05/18 07:43 Target Cells Slight 08/03/18 07:17 Tear Drop Cells Slight 08/05/18 07:43 Ovalocytes Slight 08/02/18 06:28 [place] Cells Slight 07/30/18 07:02 Acanthocytes (Spur) Slight 08/01/18 07:29 PT 13.0 SECONDS (9.7-12.2) H 07/27/18 06:34 INR 1.2 07/27/18 06:34 APTT 35 SECONDS (21-34) H 07/27/18 06:34 Sodium 135 mmol/L (132-148) 08/05/18 07:43 Potassium 4.7 mmol/L (3.6-5.2) 08/05/18 07:43 Chloride 101 mmol/L (98-107) 08/05/18 07:43 Carbon Dioxide 25 mmol/L (22-30) 08/05/18 07:43 Anion Gap 13 (10-20) 08/05/18 07:43 BUN 51 mg/dL (9-20) H 08/05/18 07:43 Creatinine 3.0 mg/dL (0.8-1.5) H 08/05/18 07:43 Est GFR ( Amer) 24 08/05/18 07:43 Est GFR (Non-Af Amer) 20 08/05/18 07:43 POC Glucose (mg/dL) 158 mg/dL (65-110) H 08/06/18 06:30 Random Glucose 192 mg/dL (75-110) H 08/05/18 07:43 Calcium 8.5 mg/dl (8.6-10.4) L 08/05/18 07:43 Phosphorus 4.4 mg/dL (2.5-4.5) 08/05/18 07:43 Magnesium 1.6 mg/dL (1.6-2.3) 08/05/18 07:43 % Saturation 17 (20-55) L 07/25/18 13:25 Ferritin 389.0 ng/mL 07/25/18 13:25 Total Bilirubin 0.5 mg/dL (0.2-1.3) 08/05/18 07:43 AST 17 U/L (17-59) D 08/05/18 07:43 ALT 12 U/L (21-72) L D 08/05/18 07:43 Alkaline Phosphatase 72 U/L (38-126) 08/05/18 07:43 Total Creatine Kinase 70 U/L (55-170) 07/25/18 11:22 CK-MB (Mass) 2.69 ng/mL (0.0-3.38) 07/25/18 11:22 Total Protein 5.1 g/dL (6.3-8.3) L 08/05/18 07:43 Albumin 2.9 g/dL (3.5-5.0) L 08/05/18 07:43 Globulin 2.2 gm/dL (2.2-3.9) 08/05/18 07:43 Albumin/Globulin Ratio 1.3 (1.0-2.1) 08/05/18 07:43 PTH Intact Whole Molec 119 pg/mL (14-64) H 07/25/18 13:25 Urine Color Yellow (YELLOW) 07/30/18 07:02 Urine Clarity Clear (Clear) 07/30/18 07:02 Urine pH 6.0 (5.0-8.0) 07/30/18 07:02 Ur Specific [place] 1.014 (1.003-1.030) 07/30/18 07:02 Urine Protein 2+ mg/dL (NEGATIVE) H 07/30/18 07:02 Urine Glucose (UA) 2+ mg/dL (Normal) H 07/30/18 07:02 Urine Ketones Negative mg/dL (NEGATIVE) 07/30/18 07:02 Urine Blood Negative (NEGATIVE) 07/30/18 07:02 Urine Nitrate Negative (NEGATIVE) 07/30/18 07:02 Urine Bilirubin Negative (NEGATIVE) 07/30/18 07:02 Urine Urobilinogen Normal mg/dL (0.2-1.0) 07/30/18 07:02 Ur Leukocyte Esterase Neg [place]/uL (Negative) 07/30/18 07:02 Urine WBC (Auto) 1 /hpf (0-5) 07/30/18 07:02 Urine RBC (Auto) 1 /hpf (0-3) 07/30/18 07:02 Ur Squamous Epith Cells 3 /hpf (0-5) 07/30/18 07:02 Urine Bacteria Rare (<OCC) 07/30/18 07:02 Vancomycin Trough 25.6 ug/mL (5.0-10.0) H 08/02/18 20:13 Hep Bs Antigen Negative (NEGATIVE) 07/25/18 13:25 Hep Bs Antibody Negative (NEGATIVE) 07/25/18 13:25 Hep B Core IgM Ab Negative (NEGATIVE) 07/25/18 13:25 Hepatitis C Antibody Negative (NEGATIVE) 07/25/18 13:25 Influenza Typ A,B (EIA) Negative for flu a/b (NEGATIVE) 07/29/18 16:56 Blood Type O POSITIVE 07/27/18 06:44 Antibody Screen Negative 07/27/18 06:44 - Hospital Course Hospital Course: Patient is an 82 year old male with a history of COPD, Pulmonary Fibrosis, HTN, and known history of ESRD. He came with ongoing weakness and worsening renal function and has been eval uated by his production support engineer. Due to this progressive worsening or renal function he had a Right side IJ permacath placed on 07/25/2018 and then a laparoscopic placement of peritoneal dialysis catheter on 07/27/2018. He tolerated these well and has been getting HD since 07/27. He has been doing well during the HD sessions. The patient was accepted on oo of 08/05 at [facility] for HD, his first session being this Wednesday 08/09 He has been on Procrit, Calcitrol While here he had a sputum + pseudomonas. He has been on IV Zosyn and Vancomycin since 07/27 and with discharge per ID will continue with giving IV cefepime with HD for the following week. He had CT csan of the chest. Blood cultures were negative, urine cultures negative With reguards to the patient's history of COPD/Pulmonary fibrosis, he has been on IV solumedrol, albuterol and has been stable. His SpO2s on room air have been documented on in room air 97 to 99%. Nevertheless he should take prednisone PO as well as resume his home medications for his breathing inclduding the Breo/Ellipta and albuterol. With reguards to his DM his sugars have been elevated in part from the IV solumedrol. Discharge Exam - Head Exam Head Exam: ATRAUMATIC, NORMAL INSPECTION - Eye Exam Eye Exam: EOMI, Normal appearance - Respiratory Exam Respiratory Exam: Decreased Breath Sounds, Rhonchi - Cardiovascular Exam Cardiovascular Exam: REGULAR RHYTHM - GI/Abdominal Exam GI & Abdominal Exam: Normal Bowel Sounds, Soft Additional comments: PD dialysis site is covered with dressing. - Neurological Exam Neurological exam: Alert, Oriented x3 - Psychiatric Exam Psychiatric exam: Normal Affect, Normal Mood - Skin Skin Exam: Normal Color, Warm Discharge Plan - Discharge Medications Prescriptions: Cefepime IV 2 gm in NS [Maxipime 2gm] 2 gm IVPB TTS #3 bag predniSONE [Prednisone] 10 mg PO DAILY #4 tab - Follow Up Plan Condition: GOOD Disposition: HOME/ ROUTINE
[2018-08-06 08:31] LABS: ALB/GLOB RATIO 1.2 (1.0-2.1); ALBUMIN 2.7 g/dL (3.5-5.0); CALCIUM 8.2 mg/dl (8.6-10.4)
[2018-08-06] MEDS: (Novolin R) Insulin Human Regular 100 units/ml vial SC SCH ×3 (08:34→13:10)
[2018-08-06] MEDS: guaiFENesin 600 mg ER Tab PO SCH (10:30)
[2018-08-06 10:44] LABS: BANDS 5 % (0-2); LYMPHOCYTE 6 % (20-40); MONOCYTE 6 % (0-10); NEUTROPHIL 83 % (50-75); PLATELET ESTIMATE NORMAL (NORMAL); TOTAL CELLS COUNTED 100
[2018-08-06 10:45] LABS: ANISOCYTOSIS MODERATE; POIKILOCYTOSIS SLIGHT; POLYCHROMIC SLIGHT
[2018-08-06 10:46] LABS: HYPOCHROMIC SLIGHT; LARGE PLATELETS PRESENT; OVALOCYTES SLIGHT; SCHISTOCYTES SLIGHT; TEARDROP CELLS SLIGHT; TOXIC GRANULATION PRESENT
--- NOTE | 2018-08-06 11:28 | CP.PCM.PN ---
Subjective - Date & Time of Evaluation Date of Evaluation: 08/06/18 Time of Evaluation: 11:25 - Subjective Subjective: Notes reviewed Seen in hd unit on dialysis Offers no complaints No sob or cough at rest No cp or palp No overnight events 10 point ros negative qb 300 currently Objective - Vital Signs/Intake and Output Vital Signs (last 24 hours): Temp Pulse Resp BP Pulse Ox 98 F 93 H 18 153/75 H 95 08/06/18 09:50 08/06/18 09:50 08/06/18 09:50 08/06/18 10:20 08/06/18 10:39 - Medications Medications: Current Medications Albuterol/Ipratropium (Duoneb 3 Mg/0.5 Mg (3 Ml) Ud) 3 ml IH RQ4 [facility] Last Admin: 08/06/18 07:34 Dose: 3 ml Amlodipine Besylate (Norvasc) 10 mg PO DAILY [facility] Last Admin: 08/05/18 11:43 Dose: Not Given Benzocaine/Menthol (Cepacol Sore Throat) 1 korey MT Q4H PRN PRN Reason: Sore Throat Last Admin: 08/06/18 06:09 Dose: 1 korey Calcitriol (Rocaltrol) 0.25 mcg PO DAILY [facility] Last Admin: 08/05/18 11:44 Dose: Not Given Dextrose (Dextrose 50% Inj) 0 ml IV STAT PRN; Protocol PRN Reason: Hypoglycemia Protocol Dextrose (Glutose 15) 0 gm PO ONCE PRN; Protocol PRN Reason: Hypoglycemia Protocol Docusate Sodium (Colace) 100 mg PO DAILY [facility] Last Admin: 08/05/18 11:43 Dose: Not Given Epoetin Justino (Procrit) 10,000 unit IV MWF [facility] Last Admin: 08/05/18 11:37 Dose: 10,000 unit Fluticasone/Vilanterol (Breo Ellipta 100-25 Mcg Inh) 1 puff INH RQD [facility] Last Admin: 08/05/18 11:14 Dose: Not Given Folic Acid (Folic Acid) 1 mg PO DAILY [facility] Last Admin: 08/05/18 11:43 Dose: Not Given Glucagon (Glucagen Diagnostic Kit) 0 mg IM STAT PRN; Protocol PRN Reason: Hypoglycemia Protocol Guaifenesin (Mucinex La) 600 mg PO Q12H [facility] Last Admin: 08/05/18 22:33 Dose: 600 mg Heparin Sodium (Porcine) (Heparin) 5,000 units SC Q12 [facility] Last Admin: 08/05/18 22:15 Dose: 5,000 units Piperacillin Sod/Tazobactam (Sod 2.25 gm/ Sodium Chloride) 100 mls @ 200 mls/hr IVPB Q8H [facility]; Protocol Last Admin: 08/06/18 06:03 Dose: 200 mls/hr Insulin Glargine (Lantus) 24 unit SC [facility] Last Admin: 08/05/18 22:33 Dose: 24 units Insulin Human Regular (Novolin R) 0 unit SC ACHS [facility]; Protocol Last Admin: 08/06/18 08:34 Dose: 2 units Losartan Potassium (Cozaar) 50 mg PO DAILY [facility] Last Admin: 08/05/18 11:43 Dose: Not Given Methylprednisolone (Solu-Medrol) 20 mg IVP Q8 [facility] Last Admin: 08/06/18 06:04 Dose: 20 mg Pantoprazole Sodium (Protonix Ec Tab) 40 mg PO DAILY [facility] Last Admin: 08/05/18 11:43 Dose: Not Given Rosuvastatin Calcium (Crestor) 5 mg PO HS [facility] Last Admin: 08/05/18 22:15 Dose: 5 mg - Labs Labs: 08/06/18 07:55 08/06/18 07:55 PT 13.0 SECONDS (9.7-12.2) H 07/27/18 06:34 INR 1.2 07/27/18 06:34 APTT 35 SECONDS (21-34) H 07/27/18 06:34 - Constitutional Appears: Non-toxic, Older Than Stated Age - Head Exam Head Exam: ATRAUMATIC, NORMAL INSPECTION - Eye Exam Eye Exam: EOMI, Normal appearance - ENT Exam ENT Exam: Mucous Membranes Moist, Normal Oropharynx - Respiratory Exam Respiratory Exam: Rhonchi. absent: Rales - Cardiovascular Exam Cardiovascular Exam: +S1, +S2. absent: Rubs - GI/Abdominal Exam GI & Abdominal Exam: Soft, Normal Bowel Sounds - Extremities Exam Extremities Exam: absent: Joint Swelling, Pedal Edema - Neurological Exam Neurological Exam: Alert, Awake - Skin Skin Exam: Dry, Intact Assessment and Plan (1) Anemia Status: Acute (2) ESRD (end stage renal disease) Status: Acute (3) Pulmonary fibrosis Status: Chronic (4) Cardiomyopathy Status: Acute - Assessment and Plan (Free Text) Assessment: Tolerating dialysis well UF goal 1500 ml Bp stable on dialysis Continue current bp meds Labs with dialysis DIONNA with dialysis Continue current care Next dialysis 08/09
[2018-08-06 12:39] VITALS: BP 132/69; PULSE 85; RESP 16; TEMP 97.8; O2SAT 97
[2018-08-06] MEDS: Pantoprazole 40 mg EC Tab PO SCH (13:09)
== END 2018-08-06 15:45 | disposition home or self-care (01) | DRG 673 ==
LOC: C.ER 08:52 → C.9E 12:22 → C.6T 23:59
PROVIDERS: ADMIT Hospitalist; ATTEND Hospitalist
PROC: B5181ZA Fluoroscopy of Superior Vena Cava using Low Osmolar Contrast, Guidance (ICD-10-PCS; 2018-07-25)
PROC: 5A1D70Z Performance of Urinary Filtration, Intermittent, Less than 6 Hours Per Day (ICD-10-PCS; 2018-07-25)
PROC: 02HV33Z Insertion of Infusion Device into Superior Vena Cava, Percutaneous Approach (ICD-10-PCS; principal; 2018-07-25 16:00)
PROC: 0WHG43Z Insertion of Infusion Device into Peritoneal Cavity, Percutaneous Endoscopic Approach (ICD-10-PCS; 2018-07-27)
PROC: 3E1M39Z Irrigation of Peritoneal Cavity using Dialysate, Percutaneous Approach (ICD-10-PCS; 2018-07-27)
DX: I12.0 Hypertensive chronic kidney disease with stage 5 chronic kidney disease or end stage renal disease (principal); N18.6 End stage renal disease; J15.1 Pneumonia due to Pseudomonas; J69.0 Pneumonitis due to inhalation of food and vomit; I42.9 Cardiomyopathy, unspecified; J44.0 Chronic obstructive pulmonary disease with (acute) lower respiratory infection; J44.1 Chronic obstructive pulmonary disease with (acute) exacerbation; J90 Pleural effusion, not elsewhere classified; J98.11 Atelectasis; E78.5 Hyperlipidemia, unspecified; D63.8 Anemia in other chronic diseases classified elsewhere; E11.22 Type 2 diabetes mellitus with diabetic chronic kidney disease; Z87.891 Personal history of nicotine dependence; Z99.2 Dependence on renal dialysis; J84.10 Pulmonary fibrosis, unspecified

== ENCOUNTER 2018-08-09 08:47 | Inpatient (IN) | payer MEDICARE ==
[2018-08-09 08:53] VITALS: BMI 19.1
--- NOTE | 2018-08-09 09:37 | C.PDOC ---
History Of Present Illness 82 y/o male pt presents to the ER c/o fever. Pt was discharged on 08/06 and was diagnosed with pneumonia, pulmonary fibrosis and ESRD with hemodialysis. Pt was told to received dialysis as outpatient care. He reports that he went to the dialysis center this morning and they had no information on him. He also reports that he had a fever and persistent cough so they sent him to the ED. Pt denies abdominal pain, chest pain, SOB, ysuria, eye pain, rash and dizziness. Time Seen by Provider: 08/09/18 09:02 Chief Complaint (Nursing): Flu-like Symptoms History Per: Patient History/Exam Limitations: no limitations Onset/Duration Of Symptoms: Days Current Symptoms Are (Timing): Still Present Past Medical History Reviewed: Historical Data, Nursing Documentation, Vital Signs Vital Signs: Last Vital Signs Temp 100.6 F H 08/09/18 08:53 Pulse 112 H 08/09/18 08:53 Resp 22 08/09/18 08:53 BP 153/64 H 08/09/18 08:53 Pulse Ox 92 L 08/09/18 08:53 - Medical History PMH: Arthritis, Bronchitis, COPD, HTN, Hyperlipidemia, Pneumonia, End Stage Renal Disease, Chronic Kidney Disease - [facility] Procedures EXCISION OF PELVIC SUBCU/FASCIA, OPEN APPROACH (09/06/17) SUPPLEMENT L INGUINAL REGION WITH SYNTH SUB, OPEN APPROACH (09/06/17) Family History: States: Unknown Family Hx - Social History Hx Alcohol Use: No Hx Substance Use: No - Immunization History Hx Tetanus Toxoid Vaccination: No Hx Influenza Vaccination: Yes Hx Pneumococcal Vaccination: Yes Review Of Systems Constitutional: Positive for: Fever, Chills Eyes: Negative for: Pain ENT: Positive for: Nose Discharge Cardiovascular: Negative for: Chest Pain Respiratory: Positive for: Cough. Negative for: Shortness of Breath Gastrointestinal: Negative for: Nausea, Vomiting, Abdominal Pain, Constipation Genitourinary: Negative for: Dysuria Musculoskeletal: Positive for: Other (body ache ) Skin: Negative for: Rash Neurological: Negative for: Dizziness Physical Exam - Physical Exam Appears: Non-toxic, No Acute Distress, Other (pale, thin ) Skin: Warm, Dry Head: Normacephalic Eye(s): bilateral: Normal Inspection Oral Mucosa: Moist Throat: Normal Neck: Normal ROM, Supple Chest: Other (mediport to R chest wall) Cardiovascular: Rhythm Regular, Other (tachycardiac) Respiratory: No Accessory Muscle Use, Rales, Rhonchi, No Stridor, No Wheezing Gastrointestinal/Abdominal: Soft, No Tenderness Back: No CVA Tenderness Neurological/Psych: Oriented x3, Normal Speech ED Course And Treatment - Laboratory Results Result Diagrams: 08/09/18 09:45 08/09/18 09:45 O2 Sat by Pulse Oximetry: 92 (RA) Pulse Ox Interpretation: Normal Medical Decision Making Medical Decision Making: Plans: -- chem labs -- blood work -- EKG -- CXR -- tylenol Chest XR results: Accession No. : [id number] Patient Name / ID : GABRIELLA BACK / [id number] Exam Date : 08/09/2018 09:31:41 ( Approved ) Study Comment : Sex / Age : M / 82Y Creator : priti bishop Dictator : Mary Lucas Curbstone Setter : Guide Domestic Tour : Mary Lucas Approver2 : Report Date : 08/09/2018 09:34:26 My Comment : Date of service: 08/09/2018 HISTORY: fever, cough, dialysis COMPARISON: 08/02/2018 FINDINGS: LUNGS: Lung volumes slightly shallow-slightly more so now than before The patchy left basal infiltrate is similar. There is interval coalescent airspace opacity at the right base compatible with worsening infiltrate with or without atelectasis here. PLEURA: Small right interval increased pleural effusion., No pneumothorax apparent. CARDIOVASCULAR: There is presence of aortic atherosclerotic calcification on x-ray. Probable top-normal heart size. Probable mild increased pulmonary vascular congestion-slightly increased since prior exam. Right dialysis venous catheter in place no change. OSSEOUS STRUCTURES: Thoraco lumbar spondylosis. Bilateral shoulder arthrosis. VISUALIZED UPPER ABDOMEN: Normal. OTHER FINDINGS: None. IMPRESSION: Interval worsening right basal infiltrate with or without subsegmental discoid like atelectasis. Mild interval increased pulmonary venous congestion. Other findings as above. 10:50am Discharged 3 days ago by hospitalist team. EKG shows sinus tachycardia at 105bpm with non-specific st changes. Given tamiflu for flu and antibiotics for worsening pneumonia. Accepted by Dr. Lanier. Renal consult placed Disposition - Disposition Disposition: HOSPITALIZED Disposition Time: 10:51 Condition: FAIR Forms: [facility] (Mauritian) - Clinical Impression Clinical Impression: Influenza, Pneumonia - Scribe Statement The provider has reviewed the documentation as recorded by the Napoleonibludmila Castaneda Do Provider Attestation: All medical record entries made by the Scribe were at my direction and personally dictated by me. I have reviewed the chart and agree that the record accurately reflects my personal performance of the history, physical exam, medical decision making, and the department course for this patient. I have also personally directed, reviewed, and agree with the discharge instructions and disposition.
[2018-08-09 09:46] LABS: VENOUS BLOOD GAS BASE EXCESS -0.2 mmol/L (0.0-2.0); VENOUS BLOOD GAS PCO2 37 mmHg (40-60); VENOUS BLOOD GAS PO2 39 mm/Hg (30-55); VENOUS BLOOD PH 7.42 (7.32-7.43)
[2018-08-09] MEDS ORDERED: Cefepime IV 1 gm in Dextrose 1 GM/50 ML BAG IVPB STA (09:49)
[2018-08-09] MEDS ORDERED: Vancomycin 1 gm/NS 200 ml 1 GM/200 ML BAG IVPB STA (09:49)
[2018-08-09 09:53] LABS: BASO % 0.3 % (0.0-2.0); HEMOGLOBIN 9.7 g/dL (12.0-18.0); LYMPH # 0.1 K/uL (1.0-4.3); LYMPH % 0.7 % (20.0-40.0); MEAN CELL VOLUME 103.2 fL (80.0-94.0); MEAN CORPUSCULAR HEMOGLOBIN 33.7 pg (27.0-31.0); MEAN CORPUSCULAR HGB CONC 32.7 g/dL (33.0-37.0); MEAN PLATELET VOLUME 8.7 fL (7.2-11.7); MONO # 0.2 K/uL (0.0-0.8); NEUT # 11.7 K/uL (1.8-7.0); RBC 2.88 Mil/uL (4.40-5.90); RED CELL DISTRIBUTION WIDTH 23.4 % (11.5-14.5); WHITE BLOOD COUNT 12.1 K/uL (4.8-10.8)
[2018-08-09 09:57] LABS: PLATELET COUNT 118 K/uL (130-400)
[2018-08-09] MEDS ORDERED: Vancomycin 1 GM 1 GM/250 ML BAG IVPB STA (09:58)
[2018-08-09 09:59] LABS: SQUAMOUS EPITHIAL 5 /hpf (0-5); URINE BACTERIA RARE (<OCC)
[2018-08-09] MEDS ORDERED: Vancomycin 1 GM 1 GM/250 ML BAG IVPB ONE (10:00)
[2018-08-09 10:05] LABS: URINE BILIRUBIN NEGATIVE (NEGATIVE); URINE CLARITY Hazy (Clear); URINE COLOR YELLOW (YELLOW); URINE GLUCOSE (UA) 100 mg/dL (Normal)
[2018-08-09 10:06] LABS: PH,URINE 6.5 (5.0-8.0); URINE BLOOD MODERATE (NEGATIVE); URINE LEUKOCYTE ESTERASE NEGATIVE Leu/uL (Negative); URINE PROTEIN > 300 mg/dL (NEGATIVE); URINE UROBILINOGEN 0.2 mg/dL (0.2-1.0)
[2018-08-09 10:17] LABS: ALB/GLOB RATIO 1.2 (1.0-2.1); CALCIUM 8.2 mg/dl (8.6-10.4)
[2018-08-09 10:27] LABS: ANISOCYTOSIS MODERATE; BANDS 3 % (0-2); LYMPHOCYTE 2 % (20-40); MONOCYTE 2 % (0-10); NEUTROPHIL 93 % (50-75); PLATELET ESTIMATE SLIGHTLY DECREASED (NORMAL); TOTAL CELLS COUNTED 100
[2018-08-09 10:28] LABS: OVALOCYTES SLIGHT; POIKILOCYTOSIS SLIGHT; TEARDROP CELLS SLIGHT
--- NOTE | 2018-08-09 10:41 | RAD ---
Date of service: 08/09/2018 HISTORY: fever, cough, dialysis COMPARISON: 08/02/2018 FINDINGS: LUNGS: Lung volumes slightly shallow-slightly more so now than before The patchy left basal infiltrate is similar. There is interval coalescent airspace opacity at the right base compatible with worsening infiltrate with or without atelectasis here. PLEURA: Small right interval increased pleural effusion., No pneumothorax apparent. CARDIOVASCULAR: There is presence of aortic atherosclerotic calcification on x-ray. Probable top-normal heart size. Probable mild increased pulmonary vascular congestion-slightly increased since prior exam. Right dialysis venous catheter in place no change. OSSEOUS STRUCTURES: Thoraco lumbar spondylosis. Bilateral shoulder arthrosis. VISUALIZED UPPER ABDOMEN: Normal. OTHER FINDINGS: None. IMPRESSION: Interval worsening right basal infiltrate with or without subsegmental discoid like atelectasis. Mild interval increased pulmonary venous congestion. Other findings as above.
--- NOTE | 2018-08-09 11:22 | CP.PCM.HP ---
History of Present Illness - History of Present Illness History of Present Illness: PGY-[address] and [address] Sharpe Patient is an 82 year old male with past medical history of HTN, HLD, DM, ESRD on HD TTS, COPD, and chronic anemia presenting to ED after missed HD session earlier this morning. Per patient, he was told to receive dialysis as outpatient care, went to the center today, and they did not have any information on him. He was reported fever and persistent dry cough for the past several days and was instructed to come to the ED. He endorses fevers, shortness of breath, persistent dry cough, generalized weakness and fatigue. He denies any chills, chest pain, palpitations, abdominal pain, nausea/vomiting/diarrhea/constipation, dysuria, or changes in stool. Of note, patient was recently discharged (08/06) and diagnosed with pneumonia with pseudomonal growth in sputum (07/29). PMHx: HTN, HLD, DM, ESRD on HD (TTS), COPD, anemia PSHx: R inguinal hernia repair x2 Allergies: ASA--"stomach hurts" Social Hx: +former smoker, quit at age 42, 1-2ppd. No alcohol or illicit drug use Family Hx: noncontributory PMD: Dr. Miranda Pulmonary: Dr. Chevy Cruz Nephro: Dr. Dutton Heme: Dr. Lobato Present on Admission - Present on Admission Any Indicators Present on Admission: No Review of Systems - Review of Systems All systems: reviewed and no additional remarkable complaints except Review of Systems: as per HPI Past Patient History - Infectious Disease Hx of Infectious Diseases: None - Past Medical History & Family History Past Medical History?: Yes - Past Social History Smoking Status: Former Smoker - CARDIAC Hx Hypertension: Yes - PULMONARY Hx Bronchitis: Yes Hx Chronic Obstructive Pulmonary Disease (COPD): Yes Hx Pneumonia: Yes - HEENT Other/Comment: wears glasses - RENAL Hx Chronic Kidney Disease: Yes - ENDOCRINE/METABOLIC Hx Endocrine Disorders: Yes Hx Diabetes Mellitus Type 2: Yes - HEMATOLOGICAL/ONCOLOGICAL Hx Blood Disorders: Yes Hx Blood Transfusions: Yes - MUSCULOSKELETAL/RHEUMATOLOGICAL Hx Arthritis: Yes - GASTROINTESTINAL Hx Gastrointestinal Disorders: Yes Other/Comment: HERNIA - PSYCHIATRIC Hx Substance Use: No - SURGICAL HISTORY Hx Surgeries: Yes Hx Herniorrhaphy: Yes (RIGHT INGUINAL) - ANESTHESIA Hx Anesthesia: Yes Hx Anesthesia Reactions: No Hx Malignant Hyperthermia: No Meds Allergies/Adverse Reactions: Allergies Allergy/AdvReac Type Severity Reaction Status Date / Time aspirin Allergy Severe PAIN Verified 08/09/18 08:52 Physical Exam - Constitutional Appears: No Acute Distress - Head Exam Head Exam: ATRAUMATIC, NORMAL INSPECTION, NORMOCEPHALIC - Eye Exam Eye Exam: EOMI, Normal appearance, PERRL Pupil Exam: NORMAL ACCOMODATION - ENT Exam ENT Exam: Normal Exam - Neck Exam Neck exam: Positive for: Full Rom, Normal Inspection. Negative for: Tenderness - Respiratory Exam Respiratory Exam: Decreased Breath Sounds, Rales, NORMAL BREATHING PATTERN. absent: Accessory Muscle Use, Wheezes Additional comments: permacath to R chest wall, dressing clean/dry/intact - Cardiovascular Exam Cardiovascular Exam: REGULAR RHYTHM, +S1, +S2 - GI/Abdominal Exam GI & Abdominal Exam: Normal Bowel Sounds, Soft. absent: Distended, Firm, Guarding, Hernia, Rebound, Rigid, Tenderness - Extremities Exam Extremities exam: Positive for: full ROM, normal inspection, pedal pulses present. Negative for: calf tenderness, pedal edema - Back Exam Back exam: NORMAL INSPECTION - Neurological Exam Neurological exam: Alert, CN II-XII Intact, Normal Gait, Oriented x3 - Psychiatric Exam Psychiatric exam: Normal Affect, Normal Mood - Skin Skin Exam: Dry, Intact, Normal Color, Warm Results - Vital Signs Recent Vital Signs: Last Vital Signs Temp 99.5 F 08/09/18 11:03 Pulse 97 H 08/09/18 11:03 Resp 24 08/09/18 11:03 BP 124/56 L 08/09/18 11:03 Pulse Ox 92 L 08/09/18 11:06 - Labs Result Diagrams: 08/09/18 09:45 08/09/18 09:45 Labs: Laboratory Results - last 24 hr 08/09/18 08/09/18 08/09/18 09:40 09:45 09:45 WBC 12.1 H RBC 2.88 L Hgb 9.7 L Hct 29.8 L MCV 103.2 H MCH 33.7 H MCHC 32.7 L RDW 23.4 H Plt Count 118 L D MPV 8.7 Neut % (Auto) 97.0 H Lymph % (Auto) 0.7 L [place] % (Auto) 2.0 Eos % (Auto) 0.0 Baso % (Auto) 0.3 Neut # (Auto) 11.7 H Lymph # (Auto) 0.1 L [place] # (Auto) 0.2 Eos # (Auto) 0.0 Baso # (Auto) 0.0 Neutrophils % (Manual) 93 H Band Neutrophils % 3 H Lymphocytes % (Manual) 2 L Monocytes % (Manual) 2 Platelet Estimate Slightly decreased L Poikilocytosis (manual Slight Anisocytosis (manual) Moderate Macrocytosis (manual) Moderate Tear Drop Cells Slight Ovalocytes Slight pO2 39 VBG pH 7.42 VBG pCO2 37 L VBG HCO3 24.2 VBG Total CO2 25.1 VBG O2 Sat (Calc) 79.1 H VBG Base Excess -0.2 L VBG Potassium 5.2 Sodium 142.0 134 Chloride 112.0 H 103 Glucose 129 H Lactate 1.2 Potassium 4.6 Carbon Dioxide 22 Anion Gap 13 BUN 59 H Creatinine 2.8 H Est GFR ( Amer) 26 Est GFR (Non-Af Amer) 22 Random Glucose 124 H Calcium 8.2 L Phosphorus 4.6 H Magnesium 1.8 Total Bilirubin 0.9 AST 35 ALT 18 L Alkaline Phosphatase 62 Total Protein 5.5 L Albumin 3.0 L Globulin 2.5 Albumin/Globulin Ratio 1.2 Venous Blood Potassium 5.2 Urine Color Urine Clarity Urine pH Ur Specific [place] Urine Protein Urine Glucose (UA) Urine Ketones Urine Blood Urine Nitrate Urine Bilirubin Urine Urobilinogen Ur Leukocyte Esterase Urine WBC (Auto) Urine RBC (Auto) Ur Squamous Epith Cells Urine Bacteria Influenza Typ A,B (EIA) 08/09/18 08/09/18 09:45 09:51 WBC RBC Hgb Hct MCV MCH MCHC RDW Plt Count MPV Neut % (Auto) Lymph % (Auto) [place] % (Auto) Eos % (Auto) Baso % (Auto) Neut # (Auto) Lymph # (Auto) [place] # (Auto) Eos # (Auto) Baso # (Auto) Neutrophils % (Manual) Band Neutrophils % Lymphocytes % (Manual) Monocytes % (Manual) Platelet Estimate Poikilocytosis (manual Anisocytosis (manual) Macrocytosis (manual) Tear Drop Cells Ovalocytes pO2 VBG pH VBG pCO2 VBG HCO3 VBG Total CO2 VBG O2 Sat (Calc) VBG Base Excess VBG Potassium Sodium Chloride Glucose Lactate Potassium Carbon Dioxide Anion Gap BUN Creatinine Est GFR ( Amer) Est GFR (Non-Af Amer) Random Glucose Calcium Phosphorus Magnesium Total Bilirubin AST ALT Alkaline Phosphatase Total Protein Albumin Globulin Albumin/Globulin Ratio Venous Blood Potassium Urine Color Yellow Urine Clarity Hazy Urine pH 6.5 Ur Specific [place] 1.025 Urine Protein > 300 Urine Glucose (UA) 100 Urine Ketones Negative Urine Blood Moderate Urine Nitrate Negative Urine Bilirubin Negative Urine Urobilinogen 0.2 Ur Leukocyte Esterase Negative Urine WBC (Auto) 2 Urine RBC (Auto) 3 Ur Squamous Epith Cells 5 Urine Bacteria Rare Influenza Typ A,B (EIA) Pos for influenza a H Assessment & Plan - Assessment and Plan (Free Text) Assessment: 82 yo M with PMHx of HTN, DM, ESRD on HD, COPD, pulmonary fibrosis, chronic anemia presenting to ED for shortness of breath, fluid overload, missed HD session, found to be flu positive in ED. Plan: Influenza Positive -flu positive -given tamiflu 75 mg x 1 in ED -Tamiflu renal dosin mg PO daily for 4 more days -droplet precautions Persistent dry cough 2/2 RLL pulmonary infiltrate vs atelectasis -CXR (08/09): Interval worsening R basal infiltrate w/ or without subsegmental discoid-like atelectasis. Mild interval increased pulmonary venous congestion. -s/p vanco x 1, cefepime x 1 in ED -vancomycin renal dose: 750 mg after HD sessions -random vanc trough 24 hrs after initial vanc dose -cefepime 1 gm daily -Robitussin prn for cough ESRD on HD -BUN/Cr: 59/2.8 -Nephrology (Dr. Dutton) on case -HD session for today -f/u recs -calcitriol 0.25 mcg PO daily -folic acid 1 mg PO daily Hx of COPD Pulmonary fibrosis -CXR (08/09): Interval worsening R basal infiltrate w/ or without subsegmental discoid-like atelectasis. Mild interval increased pulmonary venous congestion. -Pulmonology (Dr. Post) on case -duonebs q4 new -solumedrol 40 mg q8 new -breo ellipta 1 puff qD Hx T2DM -home med held -ISS low dose -accuchecks achs -hypoglycemic protocol Hx of HTN -c/w home Norvasc 5 mg PO daily Hx of HLD -Crestor 5 mg PO HS NEW Anemia of chronic disease -2/2 underlying renal failure -H/H: 9.7/29.8 -continue to monitor PPx, Diet, Disposition -DVT ppx: scds, lovenox 40 mg daily -GI ppx: protonix 40 IV daily -Diet: renal low salt, HHD -PT on case Case discussed with Dr. Annemarie Reed DO, PGY-1
[2018-08-09] MEDS ORDERED: Glucagon Recombinant 1 mg Inj IM PRN (11:59)
[2018-08-09] MEDS ORDERED: Dextrose 50% SYRINGE Inj (50 ml) IV PRN (11:59)
[2018-08-09] MEDS ORDERED: Albuterol-Ipratrop 3 mg / 0.5 (3 ml) UD INH PRN (12:04)
[2018-08-09] MEDS ORDERED: guaiFENesin 200 mg/10 ml Syrup UD PO PRN (13:37)
[2018-08-09] MEDS: Enoxaparin 30 mg Syringe SC SCH (15:14)
[2018-08-09] MEDS: MethylPREDNISolone 40 mg Vial IV SCH ×2 (15:14→21:45)
[2018-08-09] MEDS: Albuterol-Ipratrop 3 mg / 0.5 (3 ml) UD INH SCH ×3 (15:54→23:22)
--- NOTE | 2018-08-09 17:32 | CP.PCM.CON ---
History of Present Illness - History of Present Illness History of Present Illness: 82 year old male admitted for worsening pneumonia despite out pt rx He was reported fever and persistent dry cough for the past several days He c/o fevers, shortness of breath, persistent dry cough, generalized weakness and fatigue. Patient was recently discharged (08/06) and diagnosed with pneumonia with pseudomonal growth in sputum (07/29). He was started on Vanco/Cefepime as well as oseltamivir for influenza + PMHx: HTN, HLD, DM, ESRD on HD (TTS), COPD, anemia PSHx: R inguinal hernia repair x2 Allergies: ASA--"stomach hurts" Social Hx: +former smoker, quit at age 42, 1-2ppd. No alcohol or illicit drug use Family Hx: noncontributory Review of Systems - Constitutional Constitutional: As Per HPI, Anorexia, Chills, Fever, Malaise - EENT Eyes: absent: As Per HPI, Blind Spots, Blurred Vision, Change in Vision, Decreased Night Vision, Diplopia, Discharge, Dry Eye, Exophthalmos, Floaters, Irritation, Itchy Eyes, Loss of Peripheral Vision, Pain, Photophobia, Requires Corrective Lenses, Sees Flashes, Spots in Vision, Tunnel Vision, Other Visual Disturbances, Loss of Vision, Other Ears: absent: As Per HPI, Decreased Hearing, Ear Discharge, Ear Pain, Tinnitus, Abnormal Hearing, Disequilibrium, Dizziness, Other Nose/Mouth/Throat: absent: As Per HPI, Epistaxis, Nasal Congestion, Nasal Discharge, Nasal Obstruction, Nasal Trauma, Nose Pain, Post Nasal Drip, Sinus Pain, Sinus Pressure, Bleeding Gums, Change in Voice, Dental Pain, Dry Mouth, Dysphagia, Halitosis, Hoarsness, Lip Swelling, Mouth Lesions, Mouth Pain, Odynophagia, Sore Throat, Throat Swelling, Tongue Swelling, Facial Pain, Neck Pain, Neck Mass, Other - Cardiovascular Cardiovascular: As Per HPI - Respiratory Respiratory: As Per HPI, Cough, Dyspnea, Dyspnea on Exertion. absent: Hemoptysis - Gastrointestinal Gastrointestinal: absent: As Per HPI, Abdominal Pain, Belching, Bloating, Change in Bowel Habits, Change in Stool Character, Coffee Ground Emesis, Constipation, Cramping, Diarrhea, Dyspepsia, Dysphagia, Early Satiety, Excessive Flatus, Fecal Incontinence, Heartburn, Hematemesis, Hematochezia, Loose Stools, Melena, Nausea, Odynophagia, Temesmus, Vomiting, Other - Genitourinary Genitourinary: absent: As Per HPI, Change in Urinary Stream, Difficulty Urinating, Dysuria, Flank Pain, Hematuria, Pyuria, Nocturia, Urinary In continence, Urinary Frequency, Urinary Hesitance, Urinary Urgency, Voiding Freq/Small Amts, Freq UTI, Hx Renal/Bladder Calculi, Hx /Renal Surgery, Bladder Distension, Other - Musculoskeletal Musculoskeletal: absent: As Per HPI, Abnormal Gait, Arthralgias, Atrophy, Back Pain, Deformity, Joint Swelling, Limited Range of Motion, Loss of Height, Muscle Cramps, Muscle Weakness, Myalgias, Neck Pain, Numbness, Radiating Pain into Limb, Stiffness, Tingling, Other - Integumentary Integumentary: absent: As Per HPI, Acne, Alopecia, Bleeding Lesions, Change in Hair, Change in Nails, Change in Pigmentation, Changing Lesions, Dry Skin, Erythema, Furuncle, Hirsutism, Lesions, New Lesions, Non-Healing Lesions, Photosensitivity, Pruritus, Rash, Skin Pain, Skin Ulcer, Sores, Striae, Swelling, Unusual Bruising, Wounds, Jaundice, Other - Neurological Neurological: absent: As Per HPI, Abnormal Gait, Abnormal Hearing, Abnormal Movements, Abnormal Speech, Behavioral Changes, Burning Sensations, Confusion, Convulsions, Disequilibrium, Dizziness, Numbness, Focal Weakness, Frequent Falls, Headaches, Lack of Coordination, Loss of Vision, Memory Loss, Paresthesias, Radicular Pain, Restless Legs, Sensory Deficit, Syncope, Tingling, Tremor, Vertigo, Weakness, Other Visual Disturbances, Other - Psychiatric Psychiatric: absent: As Per HPI, Abnormal Sleep Pattern, Anhedonia, Anxiety, Auditory Hallucinations, Behavioral Changes, Change in Appetite, Change in Libido, Confusion, Depression, Difficulty Concentrating, Hallucinations, Homicidal Ideation, Hopelessness, Irritability, Memory Loss, Mood Swings, Panic Attacks, Paranoia, Suicidal Ideation, Visual Hallucinations, Tactile Hallucinations, Other - Endocrine Endocrine: absent: As Per HPI, Change in Body Appearance, Change in Libido, Cold Intolorance, Deepening of Voice, Excessive Sweating, Fatigue, Flushing, Heat Intolorance, Increase in Ring/Shoe/Hat Size, Palpitations, Polydipsia, Polyphagia, Polyuria, Other - Hematologic/Lymphatic Hematologic: absent: As Per HPI, Easy Bleeding, Easy Bruising, Lymphadenopathy, Other Past Patient History - Infectious Disease Hx of Infectious Diseases: None - Past Medical History & Family History Past Medical History?: Yes - Past Social History Smoking Status: Former Smoker - CARDIAC Hx Cardiac Disorders: Yes Hx Hypertension: Yes - PULMONARY Hx Respiratory Disorders: Yes Hx Bronchitis: Yes Hx Chronic Obstructive Pulmonary Disease (COPD): Yes Hx Pneumonia: Yes - NEUROLOGICAL Hx Neurological Disorder: No - HEENT Hx HEENT Problems: No Other/Comment: wears glasses - RENAL Hx Chronic Kidney Disease: Yes Date of Last Dialysis Treatment: 08/09/18 - ENDOCRINE/METABOLIC Hx Endocrine Disorders: Yes Hx Diabetes Mellitus Type 2: Yes - HEMATOLOGICAL/ONCOLOGICAL Hx Blood Disorders: Yes Hx Blood Transfusions: Yes - INTEGUMENTARY Hx Dermatological Problems: No - MUSCULOSKELETAL/RHEUMATOLOGICAL Hx Musculoskeletal Disorders: Yes Hx Arthritis: Yes Hx Falls: No - GASTROINTESTINAL Hx Gastrointestinal Disorders: Yes Other/Comment: HERNIA - GENITOURINARY/GYNECOLOGICAL Hx Genitourinary Disorders: No - PSYCHIATRIC Hx Psychophysiologic Disorder: No Hx Substance Use: No - SURGICAL HISTORY Hx Surgeries: Yes Hx Herniorrhaphy: Yes (RIGHT INGUINAL) - ANESTHESIA Hx Anesthesia: Yes Hx Anesthesia Reactions: No Hx Malignant Hyperthermia: No Meds Allergies/Adverse Reactions: Allergies Allergy/AdvReac Type Severity Reaction Status Date / Time aspirin Allergy Severe PAIN Verified 08/09/18 08:52 - Medications Medications: Current Medications Albuterol/Ipratropium (Duoneb 3 Mg/0.5 Mg (3 Ml) Ud) 3 ml INH RQ4 [facility] Last Admin: 08/09/18 15:54 Dose: 3 ml Amlodipine Besylate (Norvasc) 5 mg PO DAILY [facility] Calcitriol (Rocaltrol) 0.25 mcg PO DAILY [facility] Dextrose (Dextrose 50% Inj) 0 ml IV STAT PRN; Protocol PRN Reason: Hypoglycemia Protocol Dextrose (Glutose 15) 0 gm PO ONCE PRN; Protocol PRN Reason: Hypoglycemia Protocol Enoxaparin Sodium (Lovenox) 30 mg SC DAILY [facility] Last Admin: 08/09/18 15:14 Dose: 30 mg Fluticasone/Vilanterol (Breo Ellipta 100-25 Mcg Inh) 1 puff INH RQD [facility] Folic Acid (Folic Acid) 1 mg PO DAILY [facility] Glucagon (Glucagen Diagnostic Kit) 0 mg IM STAT PRN; Protocol PRN Reason: Hypoglycemia Protocol Guaifenesin (Robitussin) 200 mg PO Q4H PRN PRN Reason: Cough and congestion Dextrose (Dextrose 5% In Water 1000 Ml) 1,000 mls @ 0 mls/hr IV .Q0M PRN; Protocol PRN Reason: Hypoglycemia Protocol Cefepime HCl 1 gm/ Dextrose 50 mls @ 100 mls/hr IVPB DAILY [facility]; Protocol Vancomycin HCl (Vancocin 750mg/Ns 150 Ml) 150 mls @ 150 mls/hr IVPB TTS [facility]; Protocol Stop: 08/16/18 10:01 Insulin Human Regular (Novolin R) 0 unit SC ACHS [facility]; Protocol Methylprednisolone (Solu-Medrol) 40 mg IV Q8 [facility] Last Admin: 08/09/18 15:14 Dose: 40 mg Oseltamivir Phosphate (Tamiflu Susp) 30 mg PO DAILY [facility]; Protocol Stop: 08/13/18 10:01 Pantoprazole Sodium (Protonix Inj) 40 mg IVP DAILY [facility] Rosuvastatin Calcium (Crestor) 5 mg PO HS [facility] Physical Exam - Constitutional Appears: Non-toxic, No Acute Distress, Cachectic, Chronically Ill - Head Exam Head Exam: ATRAUMATIC, NORMAL INSPECTION, NORMOCEPHALIC - Eye Exam Eye Exam: EOMI, PERRL. absent: Scleral icterus - ENT Exam ENT Exam: Mucous Membranes Dry, Normal External Ear Exam, Normal Oropharynx - Neck Exam Neck exam: Negative for: Lymphadenopathy - Respiratory Exam Respiratory Exam: Decreased Breath Sounds, Prolonged Expiratory Phase, Rhonchi - Cardiovascular Exam Cardiovascular Exam: Tachycardia, REGULAR RHYTHM, +S1, +S2 - GI/Abdominal Exam GI & Abdominal Exam: Diminished Bowel Sounds, Distended, Soft. absent: Tenderness - Rectal Exam Rectal Exam: Deferred - Exam Exam: NORMAL INSPECTION - Extremities Exam Extremities exam: Positive for: pedal pulses present. Negative for: calf tender ness, pedal edema, tenderness - Back Exam Back exam: absent: CVA tenderness (L), CVA tenderness (R), paraspinal tenderness - Neurological Exam Neurological exam: Alert, CN II-XII Intact, Oriented x3, Reflexes Normal - Psychiatric Exam Psychiatric exam: Depressed - Skin Skin Exam: Dry, Intact Results - Vital Signs Recent Vital Signs: Last Vital Signs Temp 99.5 F 08/09/18 11:03 Pulse 98 H 08/09/18 15:55 Resp 20 08/09/18 15:10 BP 130/61 08/09/18 13:09 Pulse Ox 95 08/09/18 15:10 - Labs Result Diagrams: 08/09/18 09:45 08/09/18 09:45 Labs: Laboratory Results - last 24 hr 08/09/18 08/09/18 08/09/18 09:40 09:45 09:45 WBC 12.1 H RBC 2.88 L Hgb 9.7 L Hct 29.8 L MCV 103.2 H MCH 33.7 H MCHC 32.7 L RDW 23.4 H Plt Count 118 L D MPV 8.7 Neut % (Auto) 97.0 H Lymph % (Auto) 0.7 L Woods % (Auto) 2.0 Eos % (Auto) 0.0 Baso % (Auto) 0.3 Neut # (Auto) 11.7 H Lymph # (Auto) 0.1 L Woods # (Auto) 0.2 Eos # (Auto) 0.0 Baso # (Auto) 0.0 Neutrophils % (Manual) 93 H Band Neutrophils % 3 H Lymphocytes % (Manual) 2 L Monocytes % (Manual) 2 Platelet Estimate Slightly decreased L Poikilocytosis (manual Slight Anisocytosis (manual) Moderate Macrocytosis (manual) Moderate Tear Drop Cells Slight Ovalocytes Slight pO2 39 VBG pH 7.42 VBG pCO2 37 L VBG HCO3 24.2 VBG Total CO2 25.1 VBG O2 Sat (Calc) 79.1 H VBG Base Excess -0.2 L VBG Potassium 5.2 Sodium 142.0 134 Chloride 112.0 H 103 Glucose 129 H Lactate 1.2 Potassium 4.6 Carbon Dioxide 22 Anion Gap 13 BUN 59 H Creatinine 2.8 H Est GFR ( Amer) 26 Est GFR (Non-Af Amer) 22 Random Glucose 124 H Calcium 8.2 L Phosphorus 4.6 H Magnesium 1.8 Total Bilirubin 0.9 AST 35 ALT 18 L Alkaline Phosphatase 62 Total Protein 5.5 L Albumin 3.0 L Globulin 2.5 Albumin/Globulin Ratio 1.2 Venous Blood Potassium 5.2 Urine Color Urine Clarity Urine pH Ur Specific [place] Urine Protein Urine Glucose (UA) Urine Ketones Urine Blood Urine Nitrate Urine Bilirubin Urine Urobilinogen Ur Leukocyte Esterase Urine WBC (Auto) Urine RBC (Auto) Ur Squamous Epith Cells Urine Bacteria Influenza Typ A,B (EIA) 08/09/18 08/09/18 09:45 09:51 WBC RBC Hgb Hct MCV MCH MCHC RDW Plt Count MPV Neut % (Auto) Lymph % (Auto) Woods % (Auto) Eos % (Auto) Baso % (Auto) Neut # (Auto) Lymph # (Auto) Woods # (Auto) Eos # (Auto) Baso # (Auto) Neutrophils % (Manual) Band Neutrophils % Lymphocytes % (Manual) Monocytes % (Manual) Platelet Estimate Poikilocytosis (manual Anisocytosis (manual) Macrocytosis (manual) Tear Drop Cells Ovalocytes pO2 VBG pH VBG pCO2 VBG HCO3 VBG Total CO2 VBG O2 Sat (Calc) VBG Base Excess VBG Potassium Sodium Chloride Glucose Lactate Potassium Carbon Dioxide Anion Gap BUN Creatinine Est GFR ( Amer) Est GFR (Non-Af Amer) Random Glucose Calcium Phosphorus Magnesium Total Bilirubin AST ALT Alkaline Phosphatase Total Protein Albumin Globulin Albumin/Globulin Ratio Venous Blood Potassium Urine Color Yellow Urine Clarity Hazy Urine pH 6.5 Ur Specific [place] 1.025 Urine Protein > 300 Urine Glucose (UA) 100 Urine Ketones Negative Urine Blood Moderate Urine Nitrate Negative Urine Bilirubin Negative Urine Urobilinogen 0.2 Ur Leukocyte Esterase Negative Urine WBC (Auto) 2 Urine RBC (Auto) 3 Ur Squamous Epith Cells 5 Urine Bacteria Rare Influenza Typ A,B (EIA) Pos for influenza a H Assessment & Plan (1) Influenza Status: Acute (2) Pneumonia Status: Acute (3) Bronchiectasis Status: Acute (4) CKD (chronic kidney disease) Status: Acute - Assessment and Plan (Free Text) Assessment: acute influenza A with pneumonia RLL exac Bronchiectasis Severe chronic Pseudomonal infection resp insuff COPD ESRD on HD agree with current rx
[2018-08-09] MEDS: (Novolin R) Insulin Human Regular 100 units/ml vial SC SCH ×2 (17:49→21:46)
[2018-08-10] MEDS: Albuterol-Ipratrop 3 mg / 0.5 (3 ml) UD INH SCH ×6 (03:37→23:16)
[2018-08-10] MEDS: MethylPREDNISolone 40 mg Vial IV SCH ×3 (05:28→21:09)
--- NOTE | 2018-08-10 07:44 | CP.PCM.PN ---
Subjective - Date & Time of Evaluation Date of Evaluation: 08/10/18 Time of Evaluation: 07:44 - Subjective Subjective: PGY-1 Medicine Progress Note for Dr. Sharpe Patient seen and examined at bedside this AM. Tmax of 102 overnight, tylenol given. Continues to have intermittent dry cough, generalized myalgia. Remains on isolation precautions for influenza. No other acute somatic complaints. Objective - Vital Signs/Intake and Output Vital Signs (last 24 hours): Temp Pulse Resp BP Pulse Ox 97.8 F 80 20 113/69 90 L 08/10/18 04:46 08/10/18 04:46 08/10/18 04:46 08/10/18 04:46 08/10/18 04:46 - Medications Medications: Current Medications Acetaminophen (Tylenol 325mg Tab) 650 mg PO Q6 PRN PRN Reason: Fever >100.4 F Last Admin: 08/10/18 00:20 Dose: 650 mg Albuterol/Ipratropium (Duoneb 3 Mg/0.5 Mg (3 Ml) Ud) 3 ml INH RQ4 [facility] Last Admin: 08/10/18 03:37 Dose: Not Given Amlodipine Besylate (Norvasc) 5 mg PO DAILY [facility] Calcitriol (Rocaltrol) 0.25 mcg PO DAILY [facility] Dextrose (Dextrose 50% Inj) 0 ml IV STAT PRN; Protocol PRN Reason: Hypoglycemia Protocol Dextrose (Glutose 15) 0 gm PO ONCE PRN; Protocol PRN Reason: Hypoglycemia Protocol Enoxaparin Sodium (Lovenox) 30 mg SC DAILY [facility] Last Admin: 08/09/18 15:14 Dose: 30 mg Fluticasone/Vilanterol (Breo Ellipta 100-25 Mcg Inh) 1 puff INH RQD [facility] Folic Acid (Folic Acid) 1 mg PO DAILY [facility] Glucagon (Glucagen Diagnostic Kit) 0 mg IM STAT PRN; Protocol PRN Reason: Hypoglycemia Protocol Guaifenesin (Robitussin) 200 mg PO Q4H PRN PRN Reason: Cough and congestion Last Admin: 08/09/18 21:45 Dose: 200 mg Dextrose (Dextrose 5% In Water 1000 Ml) 1,000 mls @ 0 mls/hr IV .Q0M PRN; Protocol PRN Reason: Hypoglycemia Protocol Cefepime HCl 1 gm/ Dextrose 50 mls @ 100 mls/hr IVPB DAILY [facility]; Protocol Vancomycin HCl (Vancocin 750mg/Ns 150 Ml) 150 mls @ 150 mls/hr IVPB TTS [facility]; Protocol Stop: 08/16/18 10:01 Insulin Human Regular (Novolin R) 0 unit SC ACHS [facility]; Protocol Last Admin: 08/09/18 21:46 Dose: Not Given Methylprednisolone (Solu-Medrol) 40 mg IV Q8 [facility] Last Admin: 08/10/18 05:28 Dose: 40 mg Oseltamivir Phosphate (Tamiflu Susp) 30 mg PO DAILY [facility]; Protocol Stop: 08/13/18 10:01 Pantoprazole Sodium (Protonix Inj) 40 mg IVP DAILY [facility] Rosuvastatin Calcium (Crestor) 5 mg PO HS [facility] Last Admin: 08/09/18 21:45 Dose: 5 mg - Labs Labs: 08/09/18 09:45 08/09/18 09:45 - Constitutional Appears: No Acute Distress - Head Exam Head Exam: ATRAUMATIC, NORMAL INSPECTION, NORMOCEPHALIC - Eye Exam Eye Exam: EOMI, Normal appearance - ENT Exam ENT Exam: Mucous Membranes Moist, Normal Exam - Neck Exam Neck Exam: Full ROM, Normal Inspection. absent: Tenderness - Respiratory Exam Respiratory Exam: Decreased Breath Sounds, Rales, Rhonchi, NORMAL BREATHING PATTERN. absent: Accessory Muscle Use, Wheezes, Respiratory Distress, Stridor - Cardiovascular Exam Cardiovascular Exam: REGULAR RHYTHM, +S1, +S2 - GI/Abdominal Exam GI & Abdominal Exam: Soft, Normal Bowel Sounds. absent: Distended, Firm, Guarding, Rigid, Tenderness, Organomegaly, Rebound - Extremities Exam Extremities Exam: Normal Capillary Refill, Normal Inspection. absent: Calf Tenderness - Back Exam Back Exam: NORMAL INSPECTION - Neurological Exam Neurological Exam: Alert, Awake, Oriented x3 - Psychiatric Exam Psychiatric exam: Normal Affect, Normal Mood - Skin Skin Exam: Dry, Intact, Normal Color, Warm Assessment and Plan - Assessment and Plan (Free Text) Assessment: 82 yo M with PMHx of HTN, DM, ESRD on HD, COPD, pulmonary fibrosis, chronic anemia presenting to ED for shortness of breath, fluid overload, missed HD session, found to be flu positive in ED. Plan: Influenza Positive -flu positive -given tamiflu 75 mg x 1 in ED -Tamiflu renal dosin mg PO daily for 4 more days -droplet precautions Pneumonia RLL -CXR (08/09): Interval worsening R basal infiltrate w/ or without subsegmental di scoid-like atelectasis. Mild interval increased pulmonary venous congestion. -s/p vanco x 1, cefepime x 1 in ED -vancomycin renal dose: 750 mg after HD sessions -random vanc trough 24 hrs after initial vanc dose -cefepime 1 gm daily -Robitussin prn for cough -ID recs (Dr. Boone) appreciated ESRD on HD -BUN/Cr: 32/2.0 (08/10) -Nephrology (Dr. Dutton) on case -HD session yesterday -f/u recs -calcitriol 0.25 mcg PO daily -folic acid 1 mg PO daily Hx of COPD Pulmonary fibrosis -CXR (08/09): Interval worsening R basal infiltrate w/ or without subsegmental discoid-like atelectasis. Mild interval increased pulmonary venous congestion. -f/u Pulm (Dr. Post) recs -duonebs q4 new -solumedrol 40 mg q8 new -breo ellipta 1 puff qD -mucomyst q4h new Hx T2DM -home med held -ISS low dose -accuchecks achs -hypoglycemic protocol Hx of HTN -Norvasc 5 mg PO daily Hx of HLD -Crestor 5 mg PO HS NEW Anemia of chronic disease -2/2 underlying renal failure -H/H: 9.5/28.4 -continue to monitor PPx, Diet, Disposition -DVT ppx: scds, lovenox 40 mg daily -GI ppx: protonix 40 IV daily -Diet: renal low salt, HHD -PT on case Case discussed with Dr. Annemarie Reed DO, PGY-1
[2018-08-10 07:45] LABS: HEMOGLOBIN 9.5 g/dL (12.0-18.0); LYMPH # 0.1 K/uL (1.0-4.3); LYMPH % 1.2 % (20.0-40.0); MEAN CELL VOLUME 101.4 fL (80.0-94.0); MEAN CORPUSCULAR HEMOGLOBIN 33.8 pg (27.0-31.0); MEAN CORPUSCULAR HGB CONC 33.3 g/dL (33.0-37.0); MEAN PLATELET VOLUME 8.6 fL (7.2-11.7); MONO # 0.1 K/uL (0.0-0.8); MONO % 1.8 % (0.0-10.0); NEUT # 5.5 K/uL (1.8-7.0); PLATELET COUNT 102 K/uL (130-400); RED CELL DISTRIBUTION WIDTH 22.5 % (11.5-14.5)
[2018-08-10 07:56] LABS: WHITE BLOOD COUNT 5.7 K/uL (4.8-10.8)
[2018-08-10] MEDS: (Novolin R) Insulin Human Regular 100 units/ml vial SC SCH ×4 (08:08→22:13)
[2018-08-10 09:12] LABS: BANDS 1 % (0-2); LYMPHOCYTE 1 % (20-40); MONOCYTE 2 % (0-10); NEUTROPHIL 96 % (50-75); TOTAL CELLS COUNTED 100
[2018-08-10 09:13] LABS: ANISOCYTOSIS SLIGHT; HYPOCHROMIC SLIGHT; MICROCYTOSIS SLIGHT; PLATELET ESTIMATE SLIGHTLY DECREASED (NORMAL); POIKILOCYTOSIS SLIGHT; TEARDROP CELLS SLIGHT
[2018-08-10 09:14] LABS: OVALOCYTES SLIGHT
[2018-08-10 09:15] LABS: LARGE PLATELETS PRESENT; TARGET CELLS SLIGHT
--- NOTE | 2018-08-10 10:09 | CP.PCM.CON ---
History of Present Illness - History of Present Illness History of Present Illness: consult for esrd 82 yo male, new ESRD, has permcath and PD catheter, chronic pulmonary fibrosis, pseudomonas colonization, COPD, presets with URI symptoms and high fever. Swab + for Influenza. Xray with right infiltrate. Last HD yesterday in hospital. Pt denies acute complaints. Afebrile at present. Continues to make urine. Review of Systems - Constitutional Constitutional: Chills, Fever - EENT Eyes: absent: Blurred Vision, Change in Vision Nose/Mouth/Throat: absent: Nasal Discharge, Sinus Pain - Cardiovascular Cardiovascular: Dyspnea on Exertion. absent: Edema - Respiratory Respiratory: Cough, Chest Congestion - Gastrointestinal Gastrointestinal: absent: Abdominal Pain, Bloating - Genitourinary Genitourinary: absent: Change in Urinary Stream, Difficulty Urinating - Neurological Neurological: absent: Abnormal Speech, Convulsions - Hematologic/Lymphatic Hematologic: absent: Easy Bleeding, Easy Bruising Past Patient History - Infectious Disease Hx of Infectious Diseases: None - Past Medical History & Family History Past Medical History?: Yes - Past Social History Smoking Status: Former Smoker - CARDIAC Hx Cardiac Disorders: Yes Hx Hypertension: Yes - PULMONARY Hx Respiratory Disorders: Yes Hx Bronchitis: Yes Hx Chronic Obstructive Pulmonary Disease (COPD): Yes Hx Pneumonia: Yes - NEUROLOGICAL Hx Neurological Disorder: No - HEENT Hx HEENT Problems: No Other/Comment: wears glasses - RENAL Hx Chronic Kidney Disease: Yes Date of Last Dialysis Treatment: 08/09/18 - ENDOCRINE/METABOLIC Hx Endocrine Disorders: Yes Hx Diabetes Mellitus Type 2: Yes - HEMATOLOGICAL/ONCOLOGICAL Hx Blood Disorders: Yes Hx Blood Transfusions: Yes - INTEGUMENTARY Hx Dermatological Problems: No - MUSCULOSKELETAL/RHEUMATOLOGICAL Hx Musculoskeletal Disorders: Yes Hx Arthritis: Yes Hx Falls: No - GASTROINTESTINAL Hx Gastrointestinal Disorders: Yes Other/Comment: HERNIA - GENITOURINARY/GYNECOLOGICAL Hx Genitourinary Disorders: No - PSYCHIATRIC Hx Psychophysiologic Disorder: No Hx Substance Use: No - SURGICAL HISTORY Hx Surgeries: Yes Hx Herniorrhaphy: Yes (RIGHT INGUINAL) - ANESTHESIA Hx Anesthesia: Yes Hx Anesthesia Reactions: No Hx Malignant Hyperthermia: No Meds Allergies/Adverse Reactions: Allergies Allergy/AdvReac Type Severity Reaction Status Date / Time aspirin Allergy Severe PAIN Verified 08/09/18 08:52 - Medications Medications: Current Medications Acetaminophen (Tylenol 325mg Tab) 650 mg PO Q6 PRN PRN Reason: Fever >100.4 F Last Admin: 08/10/18 00:20 Dose: 650 mg Albuterol/Ipratropium (Duoneb 3 Mg/0.5 Mg (3 Ml) Ud) 3 ml INH RQ4 [facility] Last Admin: 08/10/18 03:37 Dose: Not Given Amlodipine Besylate (Norvasc) 5 mg PO DAILY [facility] Calcitriol (Rocaltrol) 0.25 mcg PO DAILY [facility] Dextrose (Dextrose 50% Inj) 0 ml IV STAT PRN; Protocol PRN Reason: Hypoglycemia Protocol Dextrose (Glutose 15) 0 gm PO ONCE PRN; Protocol PRN Reason: Hypoglycemia Protocol Enoxaparin Sodium (Lovenox) 30 mg SC DAILY [facility] Last Admin: 08/09/18 15:14 Dose: 30 mg Fluticasone/Vilanterol (Breo Ellipta 100-25 Mcg Inh) 1 puff INH RQD [facility] Folic Acid (Folic Acid) 1 mg PO DAILY [facility] Glucagon (Glucagen Diagnostic Kit) 0 mg IM STAT PRN; Protocol PRN Reason: Hypoglycemia Protocol Guaifenesin (Robitussin) 200 mg PO Q4H PRN PRN Reason: Cough and congestion Last Admin: 08/09/18 21:45 Dose: 200 mg Dextrose (Dextrose 5% In Water 1000 Ml) 1,000 mls @ 0 mls/hr IV .Q0M PRN; Protocol PRN Reason: Hypoglycemia Protocol Cefepime HCl 1 gm/ Dextrose 50 mls @ 100 mls/hr IVPB DAILY [facility]; Protocol Vancomycin HCl (Vancocin 750mg/Ns 150 Ml) 150 mls @ 150 mls/hr IVPB TTS [facility]; Protocol Stop: 08/16/18 10:01 Insulin Human Regular (Novolin R) 0 unit SC ACHS [facility]; Protocol Last Admin: 08/10/18 08:08 Dose: 2 unit Methylprednisolone (Solu-Medrol) 40 mg IV Q8 [facility] Last Admin: 08/10/18 05:28 Dose: 40 mg Oseltamivir Phosphate (Tamiflu Susp) 30 mg PO DAILY [facility]; Protocol Stop: 08/13/18 10:01 Pantoprazole Sodium (Protonix Inj) 40 mg IVP DAILY [facility] Rosuvastatin Calcium (Crestor) 5 mg PO HS [facility] Last Admin: 08/09/18 21:45 Dose: 5 mg Physical Exam - Constitutional Appears: Non-toxic, Chronically Ill - Head Exam Head Exam: ATRAUMATIC, NORMAL INSPECTION - Eye Exam Eye Exam: EOMI, Normal appearance - ENT Exam ENT Exam: Mucous Membranes Moist - Neck Exam Neck exam: Positive for: Full Rom. Negative for: Lymphadenopathy - Respiratory Exam Respiratory Exam: Decreased Breath Sounds, Rhonchi - Cardiovascular Exam Cardiovascular Exam: REGULAR RHYTHM. absent: Rubs - GI/Abdominal Exam GI & Abdominal Exam: Distended. absent: Guarding Additional comments: PD catheter healing - Extremities Exam Extremities exam: Negative for: joint swelling, pedal edema - Neurological Exam Neurological exam: Alert, Oriented x3 Results - Vital Signs Recent Vital Signs: Last Vital Signs Temp 98.0 F 08/10/18 07:00 Pulse 92 H 08/10/18 07:00 Resp 18 08/10/18 07:00 BP 143/67 08/10/18 07:00 Pulse Ox 99 08/10/18 07:00 - Labs Result Diagrams: 08/10/18 07:35 08/09/18 09:45 Labs: Laboratory Results - last 24 hr 08/09/18 08/09/18 08/09/18 09:45 09:45 17:41 WBC RBC Hgb Hct MCV MCH MCHC RDW Plt Count MPV Neut % (Auto) Lymph % (Auto) [place] % (Auto) Eos % (Auto) Baso % (Auto) Neut # (Auto) Lymph # (Auto) [place] # (Auto) Eos # (Auto) Baso # (Auto) Neutrophils % (Manual) 93 H Band Neutrophils % 3 H Lymphocytes % (Manual) 2 L Monocytes % (Manual) 2 Platelet Estimate Slightly decreased L Large Platelets Hypochromasia (manual) Poikilocytosis (manual Slight Anisocytosis (manual) Moderate Microcytosis (manual) Macrocytosis (manual) Moderate Target Cells Tear Drop Cells Slight Ovalocytes Slight Sodium 134 Potassium 4.6 Chloride 103 Carbon Dioxide 22 Anion Gap 13 BUN 59 H Creatinine 2.8 H Est GFR ( Amer) 26 Est GFR (Non-Af Amer) 22 POC Glucose (mg/dL) 98 Random Glucose 124 H Calcium 8.2 L Phosphorus 4.6 H Magnesium 1.8 Total Bilirubin 0.9 AST 35 ALT 18 L Alkaline Phosphatase 62 Total Protein 5.5 L Albumin 3.0 L Globulin 2.5 Albumin/Globulin Ratio 1.2 Random Vancomycin 08/09/18 08/10/18 08/10/18 21:01 07:35 07:35 WBC 5.7 D RBC 2.80 L Hgb 9.5 L Hct 28.4 L MCV 101.4 H MCH 33.8 H MCHC 33.3 RDW 22.5 H Plt Count 102 L MPV 8.6 Neut % (Auto) 97.0 H Lymph % (Auto) 1.2 L [place] % (Auto) 1.8 Eos % (Auto) 0.0 Baso % (Auto) 0.0 Neut # (Auto) 5.5 Lymph # (Auto) 0.1 L [place] # (Auto) 0.1 Eos # (Auto) 0.0 Baso # (Auto) 0.0 Neutrophils % (Manual) 96 H Band Neutrophils % 1 Lymphocytes % (Manual) 1 L Monocytes % (Manual) 2 Platelet Estimate Slightly decreased L Large Platelets Present Hypochromasia (manual) Slight Poikilocytosis (manual Slight Anisocytosis (manual) Slight Microcytosis (manual) Slight Macrocytosis (manual) Target Cells Slight Tear Drop Cells Slight Ovalocytes Slight Sodium Potassium Chloride Carbon Dioxide Anion Gap BUN Creatinine Est GFR ( Amer) Est GFR (Non-Af Amer) POC Glucose (mg/dL) 154 H Random Glucose Calcium Phosphorus Magnesium Total Bilirubin AST ALT Alkaline Phosphatase Total Protein Albumin Globulin Albumin/Globulin Ratio Random Vancomycin 9.4 Assessment & Plan - Assessment and Plan (Free Text) Assessment: ESRD influenza right infiltrate bronchiectasis chronic pseudomonas infection pulmonary fibrosis maint HD zara with HD for anemia await healing of PD catheter continue steroids and pulmonary toilet AB per ID
[2018-08-10] MEDS: Enoxaparin 30 mg Syringe SC SCH (10:30)
[2018-08-10 10:48] LABS: ALB/GLOB RATIO 1.2 (1.0-2.1); CALCIUM 7.8 mg/dl (8.6-10.4)
[2018-08-10] MEDS: Oseltamivir 6 MG/ML PO SCH (11:00)
[2018-08-10] MEDS: Fluticasone-Vilanterol 100/25mcg Diskus INH SCH (11:11)
[2018-08-10] MEDS: Acetylcysteine 20% Inhal Soln (4ml) INH SCH ×3 (15:58→23:16)
--- NOTE | 2018-08-10 16:04 | CP.PCM.PN ---
Subjective - Date & Time of Evaluation Date of Evaluation: 08/10/18 Time of Evaluation: 09:00 - Subjective Subjective: less cough no fever Objective - Vital Signs/Intake and Output Vital Signs (last 24 hours): Temp Pulse Resp BP Pulse Ox 98.0 F 92 H 18 143/67 99 08/10/18 07:00 08/10/18 07:00 08/10/18 07:00 08/10/18 07:00 08/10/18 07:00 - Medications Medications: Current Medications Acetaminophen (Tylenol 325mg Tab) 650 mg PO Q6 PRN PRN Reason: Fever >100.4 F Last Admin: 08/10/18 00:20 Dose: 650 mg Acetylcysteine (Acetylcysteine 20%) 4 ml INH RQ4 [facility] Last Admin: 08/10/18 15:58 Dose: 4 ml Albuterol/Ipratropium (Duoneb 3 Mg/0.5 Mg (3 Ml) Ud) 3 ml INH RQ4 [facility] Last Admin: 08/10/18 15:58 Dose: 3 ml Amlodipine Besylate (Norvasc) 5 mg PO DAILY [facility] Last Admin: 08/10/18 10:30 Dose: 5 mg Calcitriol (Rocaltrol) 0.25 mcg PO DAILY [facility] Last Admin: 08/10/18 10:43 Dose: 0.25 mcg Dextrose (Dextrose 50% Inj) 0 ml IV STAT PRN; Protocol PRN Reason: Hypoglycemia Protocol Dextrose (Glutose 15) 0 gm PO ONCE PRN; Protocol PRN Reason: Hypoglycemia Protocol Enoxaparin Sodium (Lovenox) 30 mg SC DAILY [facility] Last Admin: 08/10/18 10:30 Dose: 30 mg Fluticasone/Vilanterol (Breo Ellipta 100-25 Mcg Inh) 1 puff INH RQD [facility] Last Admin: 08/10/18 11:11 Dose: 1 puff Folic Acid (Folic Acid) 1 mg PO DAILY [facility] Last Admin: 08/10/18 10:30 Dose: 1 mg Glucagon (Glucagen Diagnostic Kit) 0 mg IM STAT PRN; Protocol PRN Reason: Hypoglycemia Protocol Guaifenesin (Robitussin) 200 mg PO Q4H PRN PRN Reason: Cough and congestion Last Admin: 08/09/18 21:45 Dose: 200 mg Dextrose (Dextrose 5% In Water 1000 Ml) 1,000 mls @ 0 mls/hr IV .Q0M PRN; Protocol PRN Reason: Hypoglycemia Protocol Cefepime HCl 1 gm/ Dextrose 50 mls @ 100 mls/hr IVPB DAILY [facility]; Protocol Last Admin: 08/10/18 10:44 Dose: 100 mls/hr Vancomycin HCl (Vancocin 750mg/Ns 150 Ml) 150 mls @ 150 mls/hr IVPB TTS [facility]; Protocol Stop: 08/16/18 10:01 Insulin Human Regular (Novolin R) 0 unit SC ACHS [facility]; Protocol Last Admin: 08/10/18 12:02 Dose: 3 unit Methylprednisolone (Solu-Medrol) 40 mg IV Q8 [facility] Last Admin: 08/10/18 14:11 Dose: 40 mg Oseltamivir Phosphate (Tamiflu Susp) 30 mg PO DAILY [facility]; Protocol Stop: 08/13/18 10:01 Last Admin: 08/10/18 11:00 Dose: 5 ml Pantoprazole Sodium (Protonix Inj) 40 mg IVP DAILY [facility] Last Admin: 08/10/18 10:31 Dose: 40 mg Rosuvastatin Calcium (Crestor) 5 mg PO HS [facility] Last Admin: 08/09/18 21:45 Dose: 5 mg - Labs Labs: 08/10/18 07:35 08/10/18 07:35 - Constitutional Appears: Non-toxic, Chronically Ill - Head Exam Head Exam: NORMOCEPHALIC - Eye Exam Eye Exam: absent: Scleral icterus - ENT Exam ENT Exam: Mucous Membranes Dry - Neck Exam Neck Exam: absent: Lymphadenopathy - Respiratory Exam Respiratory Exam: Decreased Breath Sounds - Cardiovascular Exam Cardiovascular Exam: REGULAR RHYTHM - GI/Abdominal Exam GI & Abdominal Exam: Distended, Soft - Rectal Exam Rectal Exam: Deferred - Exam Exam: NORMAL INSPECTION - Extremities Exam Extremities Exam: absent: Pedal Edema - Back Exam Back Exam: absent: CVA tenderness (L), CVA tenderness (R) - Neurological Exam Neurological Exam: Alert, Awake, CN II-XII Intact, Oriented x3 Neuro motor strength exam: Left Upper Extremity: 4, Right Upper Extremity: 4, Left Lower Extremity: 4, Right Lower Extremity: 4 - Psychiatric Exam Psychiatric exam: Depressed - Skin Skin Exam: Dry Assessment and Plan (1) Influenza Status: Acute (2) Pneumonia Status: Acute (3) Bronchiectasis Status: Acute (4) CKD (chronic kidney disease) Status: Acute - Assessment and Plan (Free Text) Assessment: cont broad spectrum coverage await cultures
--- NOTE | 2018-08-10 19:01 | CP.PCM.CON ---
History of Present Illness - History of Present Illness History of Present Illness: Patient is an 82 year old male with PMH of chronic pulmonary fibrosis, pseudomonas colonization, COPD who presented with fever, dyspnea and tested positive for influenza. Patient seen and examined at bedside, in no acute distress. Patient stated cough, congestion were improving. Patient denied fever, chills, chest pain, dyspnea, nausea, vomiting, diarrhea. ROS: as per HPI PMH: COPD, pulmonary fibrosis, CKD, DM Surgical Hx: inguinal herniorrhaphy Social Hx: denied Med: per EMR Allergies: aspirin Physical Exam Gen: alert and awake and oriented x3, no acute distress Cardio: RRR, no murmur Pulm: decreased breath sounds, crackles, no accessory muscle use GI: soft, nontender A&P 1. Pulmonary Fibrosis -Chest x-ray 08/09/18: interval worsening right basal infiltrate, with or without subsegmental discoid like atelectasis; mild interval increased pulmonary venous congestion -ABG 08/09/18: pH 7.42, pCO2 37, pO2 39 -Continue to monitor labs -Blood culture no growth to date -Recommend sputum culture -Continue duoneb 3ml q6 -Continue solu-medrol -Continue breo-ellipta -Continue cefepime, vancomycin -Continue tamiflu -Follow up outpatient in office for pulmonary fibrosis treatment Past Patient History - Infectious Disease Hx of Infectious Diseases: None - Past Medical History & Family History Past Medical History?: Yes - Past Social History Smoking Status: Former Smoker - CARDIAC Hx Cardiac Disorders: Yes Hx Hypertension: Yes - PULMONARY Hx Respiratory Disorders: Yes Hx Bronchitis: Yes Hx Chronic Obstructive Pulmonary Disease (COPD): Yes Hx Pneumonia: Yes - NEUROLOGICAL Hx Neurological Disorder: No - HEENT Hx HEENT Problems: No Other/Comment: wears glasses - RENAL Hx Chronic Kidney Disease: Yes Date of Last Dialysis Treatment: 08/09/18 - ENDOCRINE/METABOLIC Hx Endocrine Disorders: Yes Hx Diabetes Mellitus Type 2: Yes - HEMATOLOGICAL/ONCOLOGICAL Hx Blood Disorders: Yes Hx Blood Transfusions: Yes - INTEGUMENTARY Hx Dermatological Problems: No - MUSCULOSKELETAL/RHEUMATOLOGICAL Hx Musculoskeletal Disorders: Yes Hx Arthritis: Yes Hx Falls: No - GASTROINTESTINAL Hx Gastrointestinal Disorders: Yes Other/Comment: HERNIA - GENITOURINARY/GYNECOLOGICAL Hx Genitourinary Disorders: No - PSYCHIATRIC Hx Psychophysiologic Disorder: No Hx Substance Use: No - SURGICAL HISTORY Hx Surgeries: Yes Hx Herniorrhaphy: Yes (RIGHT INGUINAL) - ANESTHESIA Hx Anesthesia: Yes Hx Anesthesia Reactions: No Hx Malignant Hyperthermia: No Meds Allergies/Adverse Reactions: Allergies Allergy/AdvReac Type Severity Reaction Status Date / Time aspirin Allergy Severe PAIN Verified 08/09/18 08:52 - Medications Medications: Current Medications Acetaminophen (Tylenol 325mg Tab) 650 mg PO Q6 PRN PRN Reason: Fever >100.4 F Last Admin: 08/10/18 00:20 Dose: 650 mg Acetylcysteine (Acetylcysteine 20%) 4 ml INH RQ4 [facility] Last Admin: 08/10/18 15:58 Dose: 4 ml Albuterol/Ipratropium (Duoneb 3 Mg/0.5 Mg (3 Ml) Ud) 3 ml INH RQ4 [facility] Last Admin: 08/10/18 15:58 Dose: 3 ml Amlodipine Besylate (Norvasc) 5 mg PO DAILY [facility] Last Admin: 08/10/18 10:30 Dose: 5 mg Calcitriol (Rocaltrol) 0.25 mcg PO DAILY [facility] Last Admin: 08/10/18 10:43 Dose: 0.25 mcg Dextrose (Dextrose 50% Inj) 0 ml IV STAT PRN; Protocol PRN Reason: Hypoglycemia Protocol Dextrose (Glutose 15) 0 gm PO ONCE PRN; Protocol PRN Reason: Hypoglycemia Protocol Enoxaparin Sodium (Lovenox) 30 mg SC DAILY [facility] Last Admin: 08/10/18 10:30 Dose: 30 mg Fluticasone/Vilanterol (Breo Ellipta 100-25 Mcg Inh) 1 puff INH RQD [facility] Last Admin: 08/10/18 11:11 Dose: 1 puff Folic Acid (Folic Acid) 1 mg PO DAILY [facility] Last Admin: 08/10/18 10:30 Dose: 1 mg Glucagon (Glucagen Diagnostic Kit) 0 mg IM STAT PRN; Protocol PRN Reason: Hypoglycemia Protocol Guaifenesin (Robitussin) 200 mg PO Q4H PRN PRN Reason: Cough and congestion Last Admin: 08/09/18 21:45 Dose: 200 mg Dextrose (Dextrose 5% In Water 1000 Ml) 1,000 mls @ 0 mls/hr IV .Q0M PRN; Protocol PRN Reason: Hypoglycemia Protocol Cefepime HCl 1 gm/ Dextrose 50 mls @ 100 mls/hr IVPB DAILY [facility]; Protocol Last Admin: 08/10/18 10:44 Dose: 100 mls/hr Vancomycin HCl (Vancocin 750mg/Ns 150 Ml) 150 mls @ 150 mls/hr IVPB TTS [facility]; Protocol Stop: 08/16/18 10:01 Insulin Human Regular (Novolin R) 0 unit SC ACHS [facility]; Protocol Last Admin: 08/10/18 16:29 Dose: 6 unit Methylprednisolone (Solu-Medrol) 40 mg IV Q8 [facility] Last Admin: 08/10/18 14:11 Dose: 40 mg Oseltamivir Phosphate (Tamiflu Susp) 30 mg PO DAILY [facility]; Protocol Stop: 08/13/18 10:01 Last Admin: 08/10/18 11:00 Dose: 5 ml Pantoprazole Sodium (Protonix Inj) 40 mg IVP DAILY [facility] Last Admin: 08/10/18 10:31 Dose: 40 mg Rosuvastatin Calcium (Crestor) 5 mg PO HS [facility] Last Admin: 08/09/18 21:45 Dose: 5 mg Results - Vital Signs Recent Vital Signs: Last Vital Signs Temp 97.8 F 08/10/18 16:00 Pulse 86 08/10/18 16:00 Resp 20 08/10/18 16:00 BP 121/62 08/10/18 16:00 Pulse Ox 96 08/10/18 16:00 - Labs Result Diagrams: 08/10/18 07:35 08/10/18 07:35 Labs: Laboratory Results - last 24 hr 08/09/18 08/10/18 08/10/18 21:01 06:17 07:35 WBC 5.7 D RBC 2.80 L Hgb 9.5 L Hct 28.4 L MCV 101.4 H MCH 33.8 H MCHC 33.3 RDW 22.5 H Plt Count 102 L MPV 8.6 Neut % (Auto) 97.0 H Lymph % (Auto) 1.2 L [place] % (Auto) 1.8 Eos % (Auto) 0.0 Baso % (Auto) 0.0 Neut # (Auto) 5.5 Lymph # (Auto) 0.1 L [place] # (Auto) 0.1 Eos # (Auto) 0.0 Baso # (Auto) 0.0 Neutrophils % (Manual) 96 H Band Neutrophils % 1 Lymphocytes % (Manual) 1 L Monocytes % (Manual) 2 Platelet Estimate Slightly decreased L Large Platelets Present Hypochromasia (manual) Slight Poikilocytosis (manual Slight Anisocytosis (manual) Slight Microcytosis (manual) Slight Target Cells Slight Tear Drop Cells Slight Ovalocytes Slight Sodium Potassium Chloride Carbon Dioxide Anion Gap BUN Creatinine Est GFR ( Amer) Est GFR (Non-Af Amer) POC Glucose (mg/dL) 154 H 234 H Random Glucose Calcium Phosphorus Magnesium Total Bilirubin AST ALT Alkaline Phosphatase Total Protein Albumin Globulin Albumin/Globulin Ratio Random Vancomycin 08/10/18 08/10/18 08/10/18 07:35 07:35 11:45 WBC RBC Hgb Hct MCV MCH MCHC RDW Plt Count MPV Neut % (Auto) Lymph % (Auto) [place] % (Auto) Eos % (Auto) Baso % (Auto) Neut # (Auto) Lymph # (Auto) [place] # (Auto) Eos # (Auto) Baso # (Auto) Neutrophils % (Manual) Band Neutrophils % Lymphocytes % (Manual) Monocytes % (Manual) Platelet Estimate Large Platelets Hypochromasia (manual) Poikilocytosis (manual Anisocytosis (manual) Microcytosis (manual) Target Cells Tear Drop Cells Ovalocytes Sodium 134 Potassium 3.7 Chloride 97 L Carbon Dioxide 23 Anion Gap 18 BUN 32 H Creatinine 2.0 H Est GFR ( Amer) 39 Est GFR (Non-Af Amer) 32 POC Glucose (mg/dL) 352 H Random Glucose 228 H D Calcium 7.8 L Phosphorus 6.9 H Magnesium 1.7 Total Bilirubin 0.6 AST 42 ALT 26 Alkaline Phosphatase 66 Total Protein 5.4 L Albumin 3.0 L Globulin 2.5 Albumin/Globulin Ratio 1.2 Random Vancomycin 9.4
[2018-08-11] MEDS: Acetylcysteine 20% Inhal Soln (4ml) INH SCH ×5 (03:08→20:02)
[2018-08-11] MEDS: MethylPREDNISolone 40 mg Vial IV SCH ×3 (05:33→22:02)
[2018-08-11 06:51] LABS: BASO % 0.1 % (0.0-2.0); HEMOGLOBIN 9.1 g/dL (12.0-18.0); LYMPH # 0.1 K/uL (1.0-4.3); LYMPH % 1.2 % (20.0-40.0); MEAN CELL VOLUME 101.9 fL (80.0-94.0); MEAN CORPUSCULAR HEMOGLOBIN 32.9 pg (27.0-31.0); MEAN CORPUSCULAR HGB CONC 32.3 g/dL (33.0-37.0); MEAN PLATELET VOLUME 8.4 fL (7.2-11.7); MONO # 0.4 K/uL (0.0-0.8); MONO % 3.9 % (0.0-10.0); NEUT # 8.5 K/uL (1.8-7.0); NEUT % 94.8 % (50.0-75.0); PLATELET COUNT 118 K/uL (130-400); RBC 2.78 Mil/uL (4.40-5.90); RED CELL DISTRIBUTION WIDTH 23.2 % (11.5-14.5); WHITE BLOOD COUNT 8.9 K/uL (4.8-10.8)
--- NOTE | 2018-08-11 07:12 | CP.PCM.PN ---
<Leroy Reed - Last Filed: 08/11/18 14:13> Subjective - Date & Time of Evaluation Date of Evaluation: 08/11/18 Time of Evaluation: 07:10 - Subjective Subjective: PGY-1 Medicine Progress Note for Dr. Rabago Patient seen and examined at bedside, resting comfortably. No acute overnight events reported. Remains on contact precautions for flu positive, continues to have intermittent dry cough. Sob slowly improving though still has chest congestion. 12 pt ROS reviewed and otherwise negative. Due for HD later today. Objective - Vital Signs/Intake and Output Vital Signs (last 24 hours): Temp Pulse Resp BP Pulse Ox 98.1 F 91 H 20 131/69 97 08/10/18 23:20 08/11/18 03:23 08/10/18 23:20 08/10/18 23:20 08/10/18 23:20 - Medications Medications: Current Medications Acetaminophen (Tylenol 325mg Tab) 650 mg PO Q6 PRN PRN Reason: Fever >100.4 F Last Admin: 08/10/18 00:20 Dose: 650 mg Acetylcysteine (Acetylcysteine 20%) 4 ml INH RQ4 [facility] Last Admin: 08/11/18 03:08 Dose: 4 ml Albuterol/Ipratropium (Duoneb 3 Mg/0.5 Mg (3 Ml) Ud) 3 ml INH RQ4 [facility] Last Admin: 08/10/18 23:16 Dose: 3 ml Amlodipine Besylate (Norvasc) 5 mg PO DAILY [facility] Last Admin: 08/10/18 10:30 Dose: 5 mg Calcitriol (Rocaltrol) 0.25 mcg PO DAILY [facility] Last Admin: 08/10/18 10:43 Dose: 0.25 mcg Dextrose (Dextrose 50% Inj) 0 ml IV STAT PRN; Protocol PRN Reason: Hypoglycemia Protocol Dextrose (Glutose 15) 0 gm PO ONCE PRN; Protocol PRN Reason: Hypoglycemia Protocol Enoxaparin Sodium (Lovenox) 30 mg SC DAILY [facility] Last Admin: 08/10/18 10:30 Dose: 30 mg Fluticasone/Vilanterol (Breo Ellipta 100-25 Mcg Inh) 1 puff INH RQD [facility] Last Admin: 08/10/18 11:11 Dose: 1 puff Folic Acid (Folic Acid) 1 mg PO DAILY [facility] Last Admin: 08/10/18 10:30 Dose: 1 mg Glucagon (Glucagen Diagnostic Kit) 0 mg IM STAT PRN; Protocol PRN Reason: Hypoglycemia Protocol Guaifenesin (Robitussin) 200 mg PO Q4H PRN PRN Reason: Cough and congestion Last Admin: 08/09/18 21:45 Dose: 200 mg Dextrose (Dextrose 5% In Water 1000 Ml) 1,000 mls @ 0 mls/hr IV .Q0M PRN; Protocol PRN Reason: Hypoglycemia Protocol Cefepime HCl 1 gm/ Dextrose 50 mls @ 100 mls/hr IVPB DAILY NEW; Protocol Last Admin: 08/10/18 10:44 Dose: 100 mls/hr Vancomycin HCl (Vancocin 750mg/Ns 150 Ml) 150 mls @ 150 mls/hr IVPB TTS NEW; Protocol Stop: 08/16/18 10:01 Insulin Human Regular (Novolin R) 0 unit SC ACHS NEW; Protocol Last Admin: 08/10/18 22:13 Dose: Not Given Methylprednisolone (Solu-Medrol) 40 mg IV Q8 NEW Last Admin: 08/11/18 05:33 Dose: 40 mg Oseltamivir Phosphate (Tamiflu Susp) 30 mg PO DAILY NEW; Protocol Stop: 08/13/18 10:01 Last Admin: 08/10/18 11:00 Dose: 5 ml Pantoprazole Sodium (Protonix Inj) 40 mg IVP DAILY [facility] Last Admin: 08/10/18 10:31 Dose: 40 mg Rosuvastatin Calcium (Crestor) 5 mg PO HS NEW Last Admin: 08/10/18 21:09 Dose: 5 mg - Labs Labs: 08/11/18 06:37 08/10/18 07:35 - Constitutional Appears: Non-toxic, No Acute Distress - Head Exam Head Exam: ATRAUMATIC, NORMAL INSPECTION, NORMOCEPHALIC - Eye Exam Eye Exam: EOMI, Normal appearance Pupil Exam: NORMAL ACCOMODATION - ENT Exam ENT Exam: Mucous Membranes Moist, Normal Exam - Neck Exam Neck Exam: Full ROM, Normal Inspection. absent: Tenderness - Respiratory Exam Respiratory Exam: Decreased Breath Sounds, Rhonchi, NORMAL BREATHING PATTERN. absent: Accessory Muscle Use, Respiratory Distress Additional comments: R chest port - Cardiovascular Exam Cardiovascular Exam: REGULAR RHYTHM, +S1, +S2 - GI/Abdominal Exam GI & Abdominal Exam: Soft, Normal Bowel Sounds. absent: Distended, Firm, Guarding, Rigid Additional comments: peritoneal cath dressing c/d/i - Extremities Exam Extremities Exam: Normal Capillary Refill, Normal Inspection. absent: Calf Tenderness, Pedal Edema - Back Exam Back Exam: NORMAL INSPECTION - Neurological Exam Neurological Exam: Alert, Awake, Normal Gait, Oriented x3 - Psychiatric Exam Psychiatric exam: Normal Affect, Normal Mood - Skin Skin Exam: Dry, Intact, Normal Color, Warm Assessment and Plan - Assessment and Plan (Free Text) Assessment: 82 yo M with PMHx of HTN, DM, ESRD on HD, COPD, pulmonary fibrosis, chronic anemia presenting after missed HD session with fever, SOB. Found to be flu positive, RLL pneumonia. Plan: Influenza Positive -flu positive -given tamiflu 75 mg x 1 in ED -Tamiflu renal dosin mg PO daily for total of 5 days -droplet precautions Pneumonia RLL -CXR (08/09): Interval worsening R basal infiltrate w/ or without subsegmental discoid-like atelectasis. Mild interval increased pulmonary venous congestion. -s/p vanco x 1, cefepime x 1 in ED -vancomycin renal dose: 750 mg after HD sessions -random vanc trough 9.4 -cefepime 1 gm daily -Robitussin prn for cough -ID recs (Dr. Boone) appreciated ESRD on HD -BUN/Cr: 60/2.6 (08/10) -Nephrology (Dr. Dutton) on case -Due for HD session today -f/u recs -calcitriol 0.25 mcg PO daily -folic acid 1 mg PO daily Hx of COPD Pulmonary fibrosis -CXR (08/09): Interval worsening R basal infiltrate w/ or without subsegmental discoid-like atelectasis. Mild interval increased pulmonary venous congestion. -f/u Pulm (Dr. Post) recs -duonebs q4 new -solumedrol 40 mg q8 new -breo ellipta 1 puff qD -mucomyst q4h new Hx T2DM -home med held -ISS medium dose -accuchecks achs -hypoglycemic protocol Hx of HTN -Norvasc 5 mg PO daily Hx of HLD -Crestor 5 mg PO HS NEW Anemia of chronic disease -2/2 underlying renal failure -H/H: 9.5/28.4 -continue to monitor PPx, Diet, Disposition -DVT ppx: scds, lovenox 40 mg daily -GI ppx: protonix 40 IV daily -Diet: renal low salt, HHD -PT on case Case discussed with Dr. Gem Reed DO, PGY-1 <Cleveland Rabago - Last Filed: 08/11/18 16:36> Objective - Vital Signs/Intake and Output Vital Signs (last 24 hours): Temp Pulse Resp BP Pulse Ox 97.9 F 84 16 129/70 96 08/11/18 12:30 08/11/18 12:30 08/11/18 12:30 08/11/18 12:30 08/11/18 12:30 - Medications Medications: Current Medications Acetaminophen (Tylenol 325mg Tab) 650 mg PO Q6 PRN PRN Reason: Fever >100.4 F Last Admin: 08/10/18 00:20 Dose: 650 mg Acetylcysteine (Acetylcysteine 20%) 4 ml INH RQ4 [facility] Last Admin: 08/11/18 11:49 Dose: Not Given Albuterol/Ipratropium (Duoneb 3 Mg/0.5 Mg (3 Ml) Ud) 3 ml INH RQ4 [facility] Last Admin: 08/11/18 11:49 Dose: Not Given Amlodipine Besylate (Norvasc) 5 mg PO DAILY [facility] Last Admin: 08/11/18 13:07 Dose: Not Given Calcitriol (Rocaltrol) 0.25 mcg PO DAILY [facility] Last Admin: 08/11/18 13:06 Dose: 0.25 mcg Dextrose (Dextrose 50% Inj) 0 ml IV STAT PRN; Protocol PRN Reason: Hypoglycemia Protocol Dextrose (Glutose 15) 0 gm PO ONCE PRN; Protocol PRN Reason: Hypoglycemia Protocol Enoxaparin Sodium (Lovenox) 30 mg SC DAILY [facility] Last Admin: 08/11/18 13:07 Dose: 30 mg Epoetin Justino (Procrit) 6,000 unit IV TTS [facility] Last Admin: 08/11/18 12:20 Dose: 6,000 unit Fluticasone/Vilanterol (Breo Ellipta 100-25 Mcg Inh) 1 puff INH RQD [facility] Last Admin: 08/11/18 07:37 Dose: 1 puff Folic Acid (Folic Acid) 1 mg PO DAILY [facility] Last Admin: 08/11/18 13:07 Dose: 1 mg Glucagon (Glucagen Diagnostic Kit) 0 mg IM STAT PRN; Protocol PRN Reason: Hypoglycemia Protocol Guaifenesin (Robitussin) 200 mg PO Q4H PRN PRN Reason: Cough and congestion Last Admin: 08/09/18 21:45 Dose: 200 mg Dextrose (Dextrose 5% In Water 1000 Ml) 1,000 mls @ 0 mls/hr IV .Q0M PRN; Protocol PRN Reason: Hypoglycemia Protocol Cefepime HCl 1 gm/ Dextrose 50 mls @ 100 mls/hr IVPB DAILY NEW; Protocol Last Admin: 08/11/18 13:03 Dose: 100 mls/hr Vancomycin HCl (Vancocin 750mg/Ns 150 Ml) 150 mls @ 150 mls/hr IVPB TTS NEW; Protocol Stop: 08/16/18 10:01 Last Admin: 08/11/18 14:15 Dose: 150 mls/hr Insulin Human Regular (Novolin R) 0 unit SC ACHS NEW; Protocol Methylprednisolone (Solu-Medrol) 40 mg IV Q12 [facility] Oseltamivir Phosphate (Tamiflu Susp) 30 mg PO DAILY NEW; Protocol Stop: 08/13/18 10:01 Last Admin: 08/11/18 14:14 Dose: 5 ml Pantoprazole Sodium (Protonix Inj) 40 mg IVP DAILY [facility] Last Admin: 08/11/18 13:06 Dose: 40 mg Rosuvastatin Calcium (Crestor) 5 mg PO HS NEW Last Admin: 08/10/18 21:09 Dose: 5 mg - Labs Labs: 08/11/18 06:37 08/11/18 06:37 Attending/Attestation - Attestation I have personally seen and examined this patient.: Yes I have fully participated in the care of the patient.: Yes I have reviewed all pertinent clinical information, including history, physical exam and plan: Yes
[2018-08-11] MEDS: Fluticasone-Vilanterol 100/25mcg Diskus INH SCH (07:37)
[2018-08-11] MEDS: Albuterol-Ipratrop 3 mg / 0.5 (3 ml) UD INH SCH ×4 (07:39→20:02)
[2018-08-11] MEDS: (Novolin R) Insulin Human Regular 100 units/ml vial SC SCH ×4 (08:13→22:03)
[2018-08-11 08:21] LABS: ALB/GLOB RATIO 1.2 (1.0-2.1); ALBUMIN 2.8 g/dL (3.5-5.0); CALCIUM 7.8 mg/dl (8.6-10.4)
[2018-08-11 09:36] LABS: ANISOCYTOSIS MODERATE; BANDS 8 % (0-2); LYMPHOCYTE 2 % (20-40); MONOCYTE 5 % (0-10); NEUTROPHIL 85 % (50-75); PLATELET ESTIMATE SLIGHTLY DECREASED (NORMAL); TOTAL CELLS COUNTED 100
[2018-08-11 09:37] LABS: POIKILOCYTOSIS SLIGHT; TEARDROP CELLS SLIGHT
[2018-08-11] MEDS ORDERED: Vancomycin 750mg/NS 150 ml 150 ML IVPB SCH (10:00)
[2018-08-11] MEDS ORDERED: Epoetin Alfa 10,000 unit/ml Dialysis IV SCH (12:00)
[2018-08-11] MEDS: Epoetin Alfa Dialysis 3000 UNIT/ML Inj IV SCH (12:20)
[2018-08-11] MEDS: Enoxaparin 30 mg Syringe SC SCH (13:07)
[2018-08-11] MEDS ORDERED: (Novolin R) Insulin Human Regular 100 units/ml vial SC SCH (13:30)
[2018-08-11] MEDS: Oseltamivir 6 MG/ML PO SCH (14:14)
--- NOTE | 2018-08-11 14:23 | CP.PCM.PN ---
Subjective - Date & Time of Evaluation Date of Evaluation: 08/11/18 Time of Evaluation: 11:40 - Subjective Subjective: Patient seen and examined at bedside, resting comfortably in no acute distress. Patient stated cough, congestion were improving. Patient complained only of feeling chilly. Patient denied fever, chest pain, dyspnea, nausea, vomiting, lindsey rrhea. Physical Exam Gen: alert and awake and oriented x3, no acute distress Cardio: RRR, no murmur Pulm: decreased breath sounds, crackles, no accessory muscle use GI: soft, nontender Extremities: no edema A&P 1. Pulmonary Fibrosis -Chest x-ray 08/09/18: interval worsening right basal infiltrate, with or without subsegmental discoid like atelectasis; mild interval increased pulmonary venous congestion -ABG 08/09/18: pH 7.42, pCO2 37, pO2 39 -Blood culture no growth to date -Recommend sputum culture -Continue duoneb 3ml q6 -Continue solu-medrol -Continue breo-ellipta -Continue cefepime, vancomycin -Continue tamiflu -Follow up outpatient in office Objective - Vital Signs/Intake and Output Vital Signs (last 24 hours): Temp Pulse Resp BP Pulse Ox 97.9 F 84 16 129/70 96 08/11/18 12:30 08/11/18 12:30 08/11/18 12:30 08/11/18 12:30 08/11/18 12:30 - Medications Medications: Current Medications Acetaminophen (Tylenol 325mg Tab) 650 mg PO Q6 PRN PRN Reason: Fever >100.4 F Last Admin: 08/10/18 00:20 Dose: 650 mg Acetylcysteine (Acetylcysteine 20%) 4 ml INH RQ4 [facility] Last Admin: 08/11/18 11:49 Dose: Not Given Albuterol/Ipratropium (Duoneb 3 Mg/0.5 Mg (3 Ml) Ud) 3 ml INH RQ4 [facility] Last Admin: 08/11/18 11:49 Dose: Not Given Amlodipine Besylate (Norvasc) 5 mg PO DAILY [facility] Last Admin: 08/11/18 13:07 Dose: Not Given Calcitriol (Rocaltrol) 0.25 mcg PO DAILY [facility] Last Admin: 08/11/18 13:06 Dose: 0.25 mcg Dextrose (Dextrose 50% Inj) 0 ml IV STAT PRN; Protocol PRN Reason: Hypoglycemia Protocol Dextrose (Glutose 15) 0 gm PO ONCE PRN; Protocol PRN Reason: Hypoglycemia Protocol Enoxaparin Sodium (Lovenox) 30 mg SC DAILY [facility] Last Admin: 08/11/18 13:07 Dose: 30 mg Epoetin Justino (Procrit) 6,000 unit IV TTS [facility] Last Admin: 08/11/18 12:20 Dose: 6,000 unit Fluticasone/Vilanterol (Breo Ellipta 100-25 Mcg Inh) 1 puff INH RQD [facility] Last Admin: 08/11/18 07:37 Dose: 1 puff Folic Acid (Folic Acid) 1 mg PO DAILY [facility] Last Admin: 08/11/18 13:07 Dose: 1 mg Glucagon (Glucagen Diagnostic Kit) 0 mg IM STAT PRN; Protocol PRN Reason: Hypoglycemia Protocol Guaifenesin (Robitussin) 200 mg PO Q4H PRN PRN Reason: Cough and congestion Last Admin: 08/09/18 21:45 Dose: 200 mg Dextrose (Dextrose 5% In Water 1000 Ml) 1,000 mls @ 0 mls/hr IV .Q0M PRN; Protocol PRN Reason: Hypoglycemia Protocol Cefepime HCl 1 gm/ Dextrose 50 mls @ 100 mls/hr IVPB DAILY [facility]; Protocol Last Admin: 08/11/18 13:03 Dose: 100 mls/hr Vancomycin HCl (Vancocin 750mg/Ns 150 Ml) 150 mls @ 150 mls/hr IVPB TTS [facility]; Protocol Stop: 08/16/18 10:01 Last Admin: 08/11/18 14:15 Dose: 150 mls/hr Insulin Human Regular (Novolin R) 0 unit SC ACHS [facility]; Protocol Methylprednisolone (Solu-Medrol) 40 mg IV Q8 [facility] Last Admin: 08/11/18 14:15 Dose: 40 mg Oseltamivir Phosphate (Tamiflu Susp) 30 mg PO DAILY [facility]; Protocol Stop: 08/13/18 10:01 Last Admin: 08/11/18 14:14 Dose: 5 ml Pantoprazole Sodium (Protonix Inj) 40 mg IVP DAILY [facility] Last Admin: 08/11/18 13:06 Dose: 40 mg Rosuvastatin Calcium (Crestor) 5 mg PO HS [facility] Last Admin: 08/10/18 21:09 Dose: 5 mg - Labs Labs: 08/11/18 06:37 08/11/18 06:37
--- NOTE | 2018-08-11 14:45 | CP.PCM.PN ---
Subjective - Date & Time of Evaluation Date of Evaluation: 08/11/18 Time of Evaluation: 14:42 - Subjective Subjective: pt seen earlier on HD UF goal 2 L afebrile no SOB or cough ROS- as per HPI, other than that 10 point ros negative Objective - Vital Signs/Intake and Output Vital Signs (last 24 hours): Temp Pulse Resp BP Pulse Ox 97.9 F 84 16 129/70 96 08/11/18 12:30 08/11/18 12:30 08/11/18 12:30 08/11/18 12:30 08/11/18 12:30 - Medications Medications: Current Medications Acetaminophen (Tylenol 325mg Tab) 650 mg PO Q6 PRN PRN Reason: Fever >100.4 F Last Admin: 08/10/18 00:20 Dose: 650 mg Acetylcysteine (Acetylcysteine 20%) 4 ml INH RQ4 [facility] Last Admin: 08/11/18 11:49 Dose: Not Given Albuterol/Ipratropium (Duoneb 3 Mg/0.5 Mg (3 Ml) Ud) 3 ml INH RQ4 [facility] Last Admin: 08/11/18 11:49 Dose: Not Given Amlodipine Besylate (Norvasc) 5 mg PO DAILY [facility] Last Admin: 08/11/18 13:07 Dose: Not Given Calcitriol (Rocaltrol) 0.25 mcg PO DAILY [facility] Last Admin: 08/11/18 13:06 Dose: 0.25 mcg Dextrose (Dextrose 50% Inj) 0 ml IV STAT PRN; Protocol PRN Reason: Hypoglycemia Protocol Dextrose (Glutose 15) 0 gm PO ONCE PRN; Protocol PRN Reason: Hypoglycemia Protocol Enoxaparin Sodium (Lovenox) 30 mg SC DAILY [facility] Last Admin: 08/11/18 13:07 Dose: 30 mg Epoetin Justino (Procrit) 6,000 unit IV TTS [facility] Last Admin: 08/11/18 12:20 Dose: 6,000 unit Fluticasone/Vilanterol (Breo Ellipta 100-25 Mcg Inh) 1 puff INH RQD [facility] Last Admin: 08/11/18 07:37 Dose: 1 puff Folic Acid (Folic Acid) 1 mg PO DAILY [facility] Last Admin: 08/11/18 13:07 Dose: 1 mg Glucagon (Glucagen Diagnostic Kit) 0 mg IM STAT PRN; Protocol PRN Reason: Hypoglycemia Protocol Guaifenesin (Robitussin) 200 mg PO Q4H PRN PRN Reason: Cough and congestion Last Admin: 08/09/18 21:45 Dose: 200 mg Dextrose (Dextrose 5% In Water 1000 Ml) 1,000 mls @ 0 mls/hr IV .Q0M PRN; Protocol PRN Reason: Hypoglycemia Protocol Cefepime HCl 1 gm/ Dextrose 50 mls @ 100 mls/hr IVPB DAILY [facility]; Protocol Last Admin: 08/11/18 13:03 Dose: 100 mls/hr Vancomycin HCl (Vancocin 750mg/Ns 150 Ml) 150 mls @ 150 mls/hr IVPB TTS [facility]; Protocol Stop: 08/16/18 10:01 Last Admin: 08/11/18 14:15 Dose: 150 mls/hr Insulin Human Regular (Novolin R) 0 unit SC ACHS [facility]; Protocol Methylprednisolone (Solu-Medrol) 40 mg IV Q12 [facility] Oseltamivir Phosphate (Tamiflu Susp) 30 mg PO DAILY [facility]; Protocol Stop: 08/13/18 10:01 Last Admin: 08/11/18 14:14 Dose: 5 ml Pantoprazole Sodium (Protonix Inj) 40 mg IVP DAILY [facility] Last Admin: 08/11/18 13:06 Dose: 40 mg Rosuvastatin Calcium (Crestor) 5 mg PO HS [facility] Last Admin: 08/10/18 21:09 Dose: 5 mg - Labs Labs: 08/11/18 06:37 08/11/18 06:37 - Constitutional Appears: Non-toxic, No Acute Distress - Head Exam Head Exam: ATRAUMATIC, NORMOCEPHALIC - Eye Exam Eye Exam: EOMI, PERRL - ENT Exam ENT Exam: Mucous Membranes Moist - Neck Exam Neck Exam: absent: Lymphadenopathy - Respiratory Exam Respiratory Exam: Clear to Ausculation Bilateral. absent: Rhonchi, Wheezes - Cardiovascular Exam Cardiovascular Exam: REGULAR RHYTHM, +S1, +S2 - GI/Abdominal Exam GI & Abdominal Exam: Soft. absent: Tenderness - Extremities Exam Extremities Exam: Full ROM. absent: Pedal Edema - Neurological Exam Neurological Exam: Alert, Awake, Oriented x3 - Psychiatric Exam Psychiatric exam: Normal Affect, Normal Mood - Skin Skin Exam: Normal Color, Warm Assessment and Plan (1) Influenza Status: Acute (2) Pneumonia Status: Acute (3) Bronchiectasis Status: Acute (4) ESRD (end stage renal disease) Status: Acute (5) ILD (interstitial lung disease) Status: Acute (6) Pulmonary fibrosis Status: Acute - Assessment and Plan (Free Text) Plan: hd today epo for anemia Bp stable continue Abx for pneumonia d/c lovenox as pt on HD to use sc heparin instead
--- NOTE | 2018-08-11 19:16 | CP.PCM.PN ---
Subjective - Date & Time of Evaluation Date of Evaluation: 08/11/18 Time of Evaluation: 09:00 - Subjective Subjective: less cough less sob awake alert NAD Objective - Vital Signs/Intake and Output Vital Signs (last 24 hours): Temp Pulse Resp BP Pulse Ox 97.8 F 85 20 146/73 97 08/11/18 16:00 08/11/18 16:00 08/11/18 16:00 08/11/18 16:00 08/11/18 16:00 - Medications Medications: Current Medications Acetaminophen (Tylenol 325mg Tab) 650 mg PO Q6 PRN PRN Reason: Fever >100.4 F Last Admin: 08/10/18 00:20 Dose: 650 mg Acetylcysteine (Acetylcysteine 20%) 4 ml INH RQ4 [facility] Last Admin: 08/11/18 11:49 Dose: Not Given Albuterol/Ipratropium (Duoneb 3 Mg/0.5 Mg (3 Ml) Ud) 3 ml INH RQ4 [facility] Last Admin: 08/11/18 11:49 Dose: Not Given Amlodipine Besylate (Norvasc) 5 mg PO DAILY [facility] Last Admin: 08/11/18 13:07 Dose: Not Given Calcitriol (Rocaltrol) 0.25 mcg PO DAILY [facility] Last Admin: 08/11/18 13:06 Dose: 0.25 mcg Dextrose (Dextrose 50% Inj) 0 ml IV STAT PRN; Protocol PRN Reason: Hypoglycemia Protocol Dextrose (Glutose 15) 0 gm PO ONCE PRN; Protocol PRN Reason: Hypoglycemia Protocol Enoxaparin Sodium (Lovenox) 30 mg SC DAILY [facility] Last Admin: 08/11/18 13:07 Dose: 30 mg Epoetin Justino (Procrit) 6,000 unit IV TTS [facility] Last Admin: 08/11/18 12:20 Dose: 6,000 unit Fluticasone/Vilanterol (Breo Ellipta 100-25 Mcg Inh) 1 puff INH RQD [facility] Last Admin: 08/11/18 07:37 Dose: 1 puff Folic Acid (Folic Acid) 1 mg PO DAILY [facility] Last Admin: 08/11/18 13:07 Dose: 1 mg Glucagon (Glucagen Diagnostic Kit) 0 mg IM STAT PRN; Protocol PRN Reason: Hypoglycemia Protocol Guaifenesin (Robitussin) 200 mg PO Q4H PRN PRN Reason: Cough and congestion Last Admin: 08/09/18 21:45 Dose: 200 mg Dextrose (Dextrose 5% In Water 1000 Ml) 1,000 mls @ 0 mls/hr IV .Q0M PRN; Protocol PRN Reason: Hypoglycemia Protocol Cefepime HCl 1 gm/ Dextrose 50 mls @ 100 mls/hr IVPB DAILY [facility]; Protocol Last Admin: 08/11/18 13:03 Dose: 100 mls/hr Vancomycin HCl (Vancocin 750mg/Ns 150 Ml) 150 mls @ 150 mls/hr IVPB TTS [facility]; Protocol Stop: 08/16/18 10:01 Last Admin: 08/11/18 14:15 Dose: 150 mls/hr Insulin Human Regular (Novolin R) 0 unit SC ACHS [facility]; Protocol Last Admin: 08/11/18 17:30 Dose: 8 units Methylprednisolone (Solu-Medrol) 40 mg IV Q12 [facility] Oseltamivir Phosphate (Tamiflu Susp) 30 mg PO DAILY [facility]; Protocol Stop: 08/13/18 10:01 Last Admin: 08/11/18 14:14 Dose: 5 ml Pantoprazole Sodium (Protonix Inj) 40 mg IVP DAILY [facility] Last Admin: 08/11/18 13:06 Dose: 40 mg Rosuvastatin Calcium (Crestor) 5 mg PO HS [facility] Last Admin: 08/10/18 21:09 Dose: 5 mg - Labs Labs: 08/11/18 06:37 08/11/18 06:37 - Constitutional Appears: Non-toxic, Chronically Ill - Head Exam Head Exam: NORMOCEPHALIC - Eye Exam Eye Exam: absent: Scleral icterus - ENT Exam ENT Exam: Mucous Membranes Dry - Neck Exam Neck Exam: absent: Lymphadenopathy - Respiratory Exam Respiratory Exam: Decreased Breath Sounds, Prolonged Expiratory Phase - Cardiovascular Exam Cardiovascular Exam: REGULAR RHYTHM - GI/Abdominal Exam GI & Abdominal Exam: Distended, Soft - Rectal Exam Rectal Exam: Deferred - Exam Exam: NORMAL INSPECTION - Extremities Exam Extremities Exam: absent: Pedal Edema - Back Exam Back Exam: absent: CVA tenderness (L), CVA tenderness (R) - Neurological Exam Neurological Exam: Alert, Awake, CN II-XII Intact, Oriented x3 - Psychiatric Exam Psychiatric exam: Depressed - Skin Skin Exam: Dry Assessment and Plan (1) Influenza Status: Acute (2) Pneumonia Status: Acute (3) Bronchiectasis Status: Acute (4) CKD (chronic kidney disease) Status: Acute - Assessment and Plan (Free Text) Assessment: iv rx to cont
--- NOTE | 2018-08-11 22:12 | CARD ---
APPROVED REPORT Date of service: 08/09/2018 EKG Measurement Heart [id number] <Conclusion> Sinus tachycardia Possible Left atrial enlargement Nonspecific ST and T wave abnormality Abnormal ECG
[2018-08-12] MEDS: Acetylcysteine 20% Inhal Soln (4ml) INH SCH ×5 (00:05→20:20)
[2018-08-12 06:28] LABS: BASO % 0.2 % (0.0-2.0); HEMOGLOBIN 9.4 g/dL (12.0-18.0); LYMPH # 0.1 K/uL (1.0-4.3); MEAN CELL VOLUME 101.1 fL (80.0-94.0); MEAN CORPUSCULAR HEMOGLOBIN 32.2 pg (27.0-31.0); MEAN CORPUSCULAR HGB CONC 31.9 g/dL (33.0-37.0); MEAN PLATELET VOLUME 8.7 fL (7.2-11.7); MONO # 0.2 K/uL (0.0-0.8); MONO % 2.1 % (0.0-10.0); NEUT # 8.6 K/uL (1.8-7.0); NEUT % 96.7 % (50.0-75.0); PLATELET COUNT 120 K/uL (130-400); RBC 2.91 Mil/uL (4.40-5.90); RED CELL DISTRIBUTION WIDTH 22.6 % (11.5-14.5); WHITE BLOOD COUNT 8.9 K/uL (4.8-10.8)
[2018-08-12 06:40] LABS: ALB/GLOB RATIO 1.2 (1.0-2.1); ALBUMIN 2.9 g/dL (3.5-5.0)
--- NOTE | 2018-08-12 07:53 | CP.PCM.PN ---
<Leroy Reed - Last Filed: 08/12/18 14:53> Subjective - Date & Time of Evaluation Date of Evaluation: 08/12/18 Time of Evaluation: 07:53 - Subjective Subjective: PGY-1 Medicine Progress Note for Dr. Rabago Patient seen and examined at bedside this AM, in no acute distress. SOB continues to improve. 12 pt ROS reviewed and negative at this time. Objective - Vital Signs/Intake and Output Vital Signs (last 24 hours): Temp Pulse Resp BP Pulse Ox 97.7 F 79 20 144/67 97 08/11/18 23:20 08/11/18 23:35 08/11/18 23:20 08/11/18 23:20 08/11/18 23:20 - Medications Medications: Current Medications Acetaminophen (Tylenol 325mg Tab) 650 mg PO Q6 PRN PRN Reason: Fever >100.4 F Last Admin: 08/10/18 00:20 Dose: 650 mg Acetylcysteine (Acetylcysteine 20%) 4 ml INH RQ4 [facility] Last Admin: 08/12/18 00:05 Dose: 4 ml Albuterol/Ipratropium (Duoneb 3 Mg/0.5 Mg (3 Ml) Ud) 3 ml INH RQ4 [facility] Last Admin: 08/11/18 20:02 Dose: 3 ml Amlodipine Besylate (Norvasc) 5 mg PO DAILY [facility] Last Admin: 08/11/18 13:07 Dose: Not Given Calcitriol (Rocaltrol) 0.25 mcg PO DAILY [facility] Last Admin: 08/11/18 13:06 Dose: 0.25 mcg Dextrose (Dextrose 50% Inj) 0 ml IV STAT PRN; Protocol PRN Reason: Hypoglycemia Protocol Dextrose (Glutose 15) 0 gm PO ONCE PRN; Protocol PRN Reason: Hypoglycemia Protocol Epoetin Justino (Procrit) 6,000 unit IV TTS [facility] Last Admin: 08/11/18 12:20 Dose: 6,000 unit Fluticasone/Vilanterol (Breo Ellipta 100-25 Mcg Inh) 1 puff INH RQD [facility] Last Admin: 08/11/18 07:37 Dose: 1 puff Folic Acid (Folic Acid) 1 mg PO DAILY [facility] Last Admin: 08/11/18 13:07 Dose: 1 mg Glucagon (Glucagen Diagnostic Kit) 0 mg IM STAT PRN; Protocol PRN Reason: Hypoglycemia Protocol Guaifenesin (Robitussin) 200 mg PO Q4H PRN PRN Reason: Cough and congestion Last Admin: 08/09/18 21:45 Dose: 200 mg Heparin Sodium (Porcine) (Heparin) 5,000 units SC Q8 [facility] Dextrose (Dextrose 5% In Water 1000 Ml) 1,000 mls @ 0 mls/hr IV .Q0M PRN; Protocol PRN Reason: Hypoglycemia Protocol Cefepime HCl 1 gm/ Dextrose 50 mls @ 100 mls/hr IVPB DAILY [facility]; Protocol Last Admin: 08/11/18 13:03 Dose: 100 mls/hr Vancomycin HCl (Vancocin 750mg/Ns 150 Ml) 150 mls @ 150 mls/hr IVPB TTS [facility]; Protocol Stop: 08/16/18 10:01 Last Admin: 08/11/18 14:15 Dose: 150 mls/hr Insulin Human Regular (Novolin R) 0 unit SC ACHS [facility]; Protocol Last Admin: 08/11/18 22:03 Dose: 4 units Methylprednisolone (Solu-Medrol) 40 mg IV Q12 [facility] Last Admin: 08/11/18 22:02 Dose: 40 mg Oseltamivir Phosphate (Tamiflu Susp) 30 mg PO DAILY [facility]; Protocol Stop: 08/13/18 10:01 Last Admin: 08/11/18 14:14 Dose: 5 ml Pantoprazole Sodium (Protonix Inj) 40 mg IVP DAILY [facility] Last Admin: 08/11/18 13:06 Dose: 40 mg Rosuvastatin Calcium (Crestor) 5 mg PO HS [facility] Last Admin: 08/11/18 22:02 Dose: 5 mg - Labs Labs: 08/12/18 06:19 08/12/18 06:19 - Constitutional Appears: Non-toxic, No Acute Distress, Chronically Ill - Head Exam Head Exam: ATRAUMATIC, NORMAL INSPECTION, NORMOCEPHALIC - Eye Exam Eye Exam: EOMI, Normal appearance Pupil Exam: NORMAL ACCOMODATION - ENT Exam ENT Exam: Mucous Membranes Moist, Normal Exam - Neck Exam Neck Exam: Full ROM, Normal Inspection. absent: Tenderness - Respiratory Exam Respiratory Exam: Decreased Breath Sounds, Rhonchi. absent: Accessory Muscle Use, Respiratory Distress - Cardiovascular Exam Cardiovascular Exam: REGULAR RHYTHM, +S1, +S2 - GI/Abdominal Exam GI & Abdominal Exam: Soft, Normal Bowel Sounds. absent: Distended, Firm, Guarding, Rigid, Tenderness Additional comments: peritoneal cath dressing c/d/i - Extremities Exam Extremities Exam: Full ROM, Normal Capillary Refill, Normal Inspection. absent: Calf Tenderness, Pedal Edema - Back Exam Back Exam: NORMAL INSPECTION - Neurological Exam Neurological Exam: Alert, Awake, Oriented x3 - Psychiatric Exam Psychiatric exam: Normal Affect, Normal Mood - Skin Skin Exam: Dry, Intact, Normal Color, Warm Assessment and Plan - Assessment and Plan (Free Text) Assessment: 82 yo M with PMHx of HTN, DM, ESRD on HD, COPD, pulmonary fibrosis, chronic anemia presenting after missed HD session with fever, SOB. Found to be flu positive, RLL pneumonia. Plan: Influenza Positive -flu positive -given tamiflu 75 mg x 1 in ED -Tamiflu renal dosin mg PO daily for total of 5 days -can d/c isolation precautions Pneumonia RLL -CXR (08/09): Interval worsening R basal infiltrate w/ or without subsegmental discoid-like atelectasis. Mild interval increased pulmonary venous congestion. -s/p vanco x 1, cefepime x 1 in ED -vancomycin renal dose: 750 mg after HD sessions -random vanc trough 9.4 -cefepime 1 gm daily -Robitussin prn for cough -ID recs (Dr. Boone) appreciated ESRD on HD -BUN/Cr: 38/2.5 (08/12) -Nephrology (Dr. Dutton) on case -Due for HD session today -f/u recs -calcitriol 0.25 mcg PO daily -folic acid 1 mg PO daily Hx of COPD Pulmonary fibrosis -CXR (08/09): Interval worsening R basal infiltrate w/ or without subsegmental discoid-like atelectasis. Mild interval increased pulmonary venous congestion. -f/u Pulm (Dr. Post) recs -duonebs q4 new -solumedrol 40 mg qD -breo ellipta 1 puff qD -mucomyst q4h new Hx T2DM -home med held -ISS high dose -accuchecks achs -hypoglycemic protocol Hx of HTN -Norvasc 5 mg PO daily Hx of HLD -Crestor 5 mg PO HS NEW Anemia of chronic disease -2/2 underlying renal failure -H/H: 9.4/29.5 (08/12) -on procrit per Nephro recs -continue to monitor PPx, Diet, Disposition -DVT ppx: scds, heparin 5000 units -GI ppx: protonix 40 IV daily -Diet: renal low salt, HHD -PT on case -Disposition: possible d/c tomorrow after HD session. Please f/u with social work prior to d/c and ensure outpatient HD center is all set up. Case discussed with Dr. Gem Reed DO, PGY-1 <Cleveland Rabago - Last Filed: 08/12/18 17:35> Objective - Vital Signs/Intake and Output Vital Signs (last 24 hours): Temp Pulse Resp BP Pulse Ox 97.4 F L 83 20 140/69 95 08/12/18 16:00 08/12/18 16:00 08/12/18 16:00 08/12/18 16:00 08/12/18 16:00 Intake and Output: 08/12/18 08/12/18 06:59 18:59 Output Total 300 Balance -300 - Medications Medications: Current Medications Acetaminophen (Tylenol 325mg Tab) 650 mg PO Q6 PRN PRN Reason: Fever >100.4 F Last Admin: 08/10/18 00:20 Dose: 650 mg Acetylcysteine (Acetylcysteine 20%) 4 ml INH RQ4 [facility] Last Admin: 08/12/18 11:56 Dose: Not Given Albuterol/Ipratropium (Duoneb 3 Mg/0.5 Mg (3 Ml) Ud) 3 ml INH RQ4 [facility] Last Admin: 08/12/18 11:56 Dose: 3 ml Amlodipine Besylate (Norvasc) 5 mg PO DAILY [facility] Last Admin: 08/12/18 09:49 Dose: 5 mg Calcitriol (Rocaltrol) 0.25 mcg PO DAILY [facility] Last Admin: 08/12/18 09:52 Dose: 0.25 mcg Dextrose (Dextrose 50% Inj) 0 ml IV STAT PRN; Protocol PRN Reason: Hypoglycemia Protocol Dextrose (Glutose 15) 0 gm PO ONCE PRN; Protocol PRN Reason: Hypoglycemia Protocol Epoetin Justino (Procrit) 6,000 unit IV TTS [facility] Last Admin: 08/11/18 12:20 Dose: 6,000 unit Fluticasone/Vilanterol (Breo Ellipta 100-25 Mcg Inh) 1 puff INH RQD [facility] Last Admin: 08/12/18 08:18 Dose: 1 puff Folic Acid (Folic Acid) 1 mg PO DAILY [facility] Last Admin: 08/12/18 09:52 Dose: 1 mg Glucagon (Glucagen Diagnostic Kit) 0 mg IM STAT PRN; Protocol PRN Reason: Hypoglycemia Protocol Guaifenesin (Robitussin) 200 mg PO Q4H PRN PRN Reason: Cough and congestion Last Admin: 08/09/18 21:45 Dose: 200 mg Heparin Sodium (Porcine) (Heparin) 5,000 units SC Q8 [facility] Last Admin: 08/12/18 14:25 Dose: Not Given Dextrose (Dextrose 5% In Water 1000 Ml) 1,000 mls @ 0 mls/hr IV .Q0M PRN; Protocol PRN Reason: Hypoglycemia Protocol Cefepime HCl 1 gm/ Dextrose 50 mls @ 100 mls/hr IVPB DAILY [facility]; Protocol Last Admin: 08/12/18 09:53 Dose: 100 mls/hr Vancomycin HCl (Vancocin 750mg/Ns 150 Ml) 150 mls @ 150 mls/hr IVPB TTS [facility]; Protocol Stop: 08/16/18 10:01 Last Admin: 08/11/18 14:15 Dose: 150 mls/hr Insulin Human Regular (Novolin R) 0 unit SC ACHS [facility]; Protocol Last Admin: 08/12/18 12:10 Dose: 10 units Methylprednisolone (Solu-Medrol) 40 mg IV DAILY [facility] Oseltamivir Phosphate (Tamiflu Susp) 30 mg PO DAILY [facility]; Protocol Stop: 08/13/18 10:01 Last Admin: 08/12/18 09:52 Dose: 5 ml Pantoprazole Sodium (Protonix Inj) 40 mg IVP DAILY [facility] Last Admin: 08/12/18 09:53 Dose: 40 mg Rosuvastatin Calcium (Crestor) 5 mg PO HS [facility] Last Admin: 08/11/18 22:02 Dose: 5 mg - Labs Labs: 08/12/18 06:19 08/12/18 06:19 Attending/Attestation - Attestation I have personally seen and examined this patient.: Yes I have fully participated in the care of the patient.: Yes I have reviewed all pertinent clinical information, including history, physical exam and plan: Yes Notes (Text): Patient seen and examined with the residents, agree with above Clinically improving; afebrile, culture reports with no significant growth Will de-escalate Abx to Levaquin (renally dosed) x5 days. Continue to complete course of Tamiflu. Discharge planning.
[2018-08-12] MEDS: Fluticasone-Vilanterol 100/25mcg Diskus INH SCH (08:18)
[2018-08-12] MEDS: Albuterol-Ipratrop 3 mg / 0.5 (3 ml) UD INH SCH ×4 (08:18→20:20)
[2018-08-12] MEDS: (Novolin R) Insulin Human Regular 100 units/ml vial SC SCH ×4 (08:28→22:06)
[2018-08-12 09:03] LABS: LYMPHOCYTE 1 % (20-40); MONOCYTE 2 % (0-10); NEUTROPHIL 97 % (50-75); PLATELET ESTIMATE SLIGHTLY DECREASED (NORMAL); TOTAL CELLS COUNTED 100
[2018-08-12 09:04] LABS: ANISOCYTOSIS SLIGHT; HYPOCHROMIC SLIGHT; POLYCHROMIC SLIGHT
[2018-08-12 09:05] LABS: TEARDROP CELLS SLIGHT
[2018-08-12] MEDS: Oseltamivir 6 MG/ML PO SCH (09:52)
[2018-08-12] MEDS: MethylPREDNISolone 40 mg Vial IV SCH (09:57)
--- NOTE | 2018-08-12 14:54 | CP.PCM.PN ---
Subjective - Date & Time of Evaluation Date of Evaluation: 08/12/18 Time of Evaluation: 11:20 - Subjective Subjective: Patient seen and examined Breathing much improved but still having some cough Afebrile Denies any chest pain Patient is awake and responsive Objective - Vital Signs/Intake and Output Vital Signs (last 24 hours): Temp Pulse Resp BP Pulse Ox 97.6 F 80 18 153/77 H 94 L 08/12/18 07:00 08/12/18 07:00 08/12/18 07:00 08/12/18 07:00 08/12/18 07:00 Intake and Output: 08/12/18 08/12/18 06:59 18:59 Output Total 300 Balance -300 - Medications Medications: Current Medications Acetaminophen (Tylenol 325mg Tab) 650 mg PO Q6 PRN PRN Reason: Fever >100.4 F Last Admin: 08/10/18 00:20 Dose: 650 mg Acetylcysteine (Acetylcysteine 20%) 4 ml INH RQ4 [facility] Last Admin: 08/12/18 11:56 Dose: Not Given Albuterol/Ipratropium (Duoneb 3 Mg/0.5 Mg (3 Ml) Ud) 3 ml INH RQ4 [facility] Last Admin: 08/12/18 11:56 Dose: 3 ml Amlodipine Besylate (Norvasc) 5 mg PO DAILY [facility] Last Admin: 08/12/18 09:49 Dose: 5 mg Calcitriol (Rocaltrol) 0.25 mcg PO DAILY [facility] Last Admin: 08/12/18 09:52 Dose: 0.25 mcg Dextrose (Dextrose 50% Inj) 0 ml IV STAT PRN; Protocol PRN Reason: Hypoglycemia Protocol Dextrose (Glutose 15) 0 gm PO ONCE PRN; Protocol PRN Reason: Hypoglycemia Protocol Epoetin Justino (Procrit) 6,000 unit IV TTS [facility] Last Admin: 08/11/18 12:20 Dose: 6,000 unit Fluticasone/Vilanterol (Breo Ellipta 100-25 Mcg Inh) 1 puff INH RQD [facility] Last Admin: 08/12/18 08:18 Dose: 1 puff Folic Acid (Folic Acid) 1 mg PO DAILY [facility] Last Admin: 08/12/18 09:52 Dose: 1 mg Glucagon (Glucagen Diagnostic Kit) 0 mg IM STAT PRN; Protocol PRN Reason: Hypoglycemia Protocol Guaifenesin (Robitussin) 200 mg PO Q4H PRN PRN Reason: Cough and congestion Last Admin: 08/09/18 21:45 Dose: 200 mg Heparin Sodium (Porcine) (Heparin) 5,000 units SC Q8 [facility] Last Admin: 08/12/18 14:25 Dose: Not Given Dextrose (Dextrose 5% In Water 1000 Ml) 1,000 mls @ 0 mls/hr IV .Q0M PRN; Protocol PRN Reason: Hypoglycemia Protocol Cefepime HCl 1 gm/ Dextrose 50 mls @ 100 mls/hr IVPB DAILY [facility]; Protocol Last Admin: 08/12/18 09:53 Dose: 100 mls/hr Vancomycin HCl (Vancocin 750mg/Ns 150 Ml) 150 mls @ 150 mls/hr IVPB TTS [facility]; Protocol Stop: 08/16/18 10:01 Last Admin: 08/11/18 14:15 Dose: 150 mls/hr Insulin Human Regular (Novolin R) 0 unit SC ACHS [facility]; Protocol Last Admin: 08/12/18 12:10 Dose: 10 units Methylprednisolone (Solu-Medrol) 40 mg IV DAILY [facility] Oseltamivir Phosphate (Tamiflu Susp) 30 mg PO DAILY [facility]; Protocol Stop: 08/13/18 10:01 Last Admin: 08/12/18 09:52 Dose: 5 ml Pantoprazole Sodium (Protonix Inj) 40 mg IVP DAILY [facility] Last Admin: 08/12/18 09:53 Dose: 40 mg Rosuvastatin Calcium (Crestor) 5 mg PO HS [facility] Last Admin: 08/11/18 22:02 Dose: 5 mg - Labs Labs: 08/12/18 06:19 08/12/18 06:19 - Head Exam Head Exam: ATRAUMATIC, NORMOCEPHALIC - ENT Exam ENT Exam: Mucous Membranes Moist - Neck Exam Neck Exam: Normal Inspection - Respiratory Exam Respiratory Exam: Rales - Cardiovascular Exam Cardiovascular Exam: REGULAR RHYTHM - GI/Abdominal Exam GI & Abdominal Exam: Soft, Normal Bowel Sounds - Extremities Exam Extremities Exam: Full ROM Assessment and Plan (1) Influenza Status: Acute (2) Pulmonary fibrosis Assessment & Plan: Taper steroids on antibiotics Nebulizer treatment Condition clinically much improved Status: Acute
--- NOTE | 2018-08-12 15:39 | CP.PCM.PN ---
Subjective - Date & Time of Evaluation Date of Evaluation: 08/12/18 Time of Evaluation: 15:37 - Subjective Subjective: pt seen and examined remains in droplet precautions had HD yesterday cough better no SOB afebrile ROS- as per HPI, other than that 10 point ros negative Objective - Vital Signs/Intake and Output Vital Signs (last 24 hours): Temp Pulse Resp BP Pulse Ox 97.6 F 80 18 153/77 H 94 L 08/12/18 07:00 08/12/18 07:00 08/12/18 07:00 08/12/18 07:00 08/12/18 07:00 Intake and Output: 08/12/18 08/12/18 06:59 18:59 Output Total 300 Balance -300 - Medications Medications: Current Medications Acetaminophen (Tylenol 325mg Tab) 650 mg PO Q6 PRN PRN Reason: Fever >100.4 F Last Admin: 08/10/18 00:20 Dose: 650 mg Acetylcysteine (Acetylcysteine 20%) 4 ml INH RQ4 [facility] Last Admin: 08/12/18 11:56 Dose: Not Given Albuterol/Ipratropium (Duoneb 3 Mg/0.5 Mg (3 Ml) Ud) 3 ml INH RQ4 [facility] Last Admin: 08/12/18 11:56 Dose: 3 ml Amlodipine Besylate (Norvasc) 5 mg PO DAILY [facility] Last Admin: 08/12/18 09:49 Dose: 5 mg Calcitriol (Rocaltrol) 0.25 mcg PO DAILY [facility] Last Admin: 08/12/18 09:52 Dose: 0.25 mcg Dextrose (Dextrose 50% Inj) 0 ml IV STAT PRN; Protocol PRN Reason: Hypoglycemia Protocol Dextrose (Glutose 15) 0 gm PO ONCE PRN; Protocol PRN Reason: Hypoglycemia Protocol Epoetin Justino (Procrit) 6,000 unit IV TTS [facility] Last Admin: 08/11/18 12:20 Dose: 6,000 unit Fluticasone/Vilanterol (Breo Ellipta 100-25 Mcg Inh) 1 puff INH RQD [facility] Last Admin: 08/12/18 08:18 Dose: 1 puff Folic Acid (Folic Acid) 1 mg PO DAILY [facility] Last Admin: 08/12/18 09:52 Dose: 1 mg Glucagon (Glucagen Diagnostic Kit) 0 mg IM STAT PRN; Protocol PRN Reason: Hypoglycemia Protocol Guaifenesin (Robitussin) 200 mg PO Q4H PRN PRN Reason: Cough and congestion Last Admin: 08/09/18 21:45 Dose: 200 mg Heparin Sodium (Porcine) (Heparin) 5,000 units SC Q8 [facility] Last Admin: 08/12/18 14:25 Dose: Not Given Dextrose (Dextrose 5% In Water 1000 Ml) 1,000 mls @ 0 mls/hr IV .Q0M PRN; Pro tocol PRN Reason: Hypoglycemia Protocol Cefepime HCl 1 gm/ Dextrose 50 mls @ 100 mls/hr IVPB DAILY [facility]; Protocol Last Admin: 08/12/18 09:53 Dose: 100 mls/hr Vancomycin HCl (Vancocin 750mg/Ns 150 Ml) 150 mls @ 150 mls/hr IVPB TTS [facility]; Protocol Stop: 08/16/18 10:01 Last Admin: 08/11/18 14:15 Dose: 150 mls/hr Insulin Human Regular (Novolin R) 0 unit SC ACHS [facility]; Protocol Last Admin: 08/12/18 12:10 Dose: 10 units Methylprednisolone (Solu-Medrol) 40 mg IV DAILY [facility] Oseltamivir Phosphate (Tamiflu Susp) 30 mg PO DAILY [facility]; Protocol Stop: 08/13/18 10:01 Last Admin: 08/12/18 09:52 Dose: 5 ml Pantoprazole Sodium (Protonix Inj) 40 mg IVP DAILY [facility] Last Admin: 08/12/18 09:53 Dose: 40 mg Rosuvastatin Calcium (Crestor) 5 mg PO HS [facility] Last Admin: 08/11/18 22:02 Dose: 5 mg - Labs Labs: 08/12/18 06:19 08/12/18 06:19 - Constitutional Appears: Well, Non-toxic - Head Exam Head Exam: ATRAUMATIC, NORMOCEPHALIC - Eye Exam Eye Exam: EOMI, PERRL - ENT Exam ENT Exam: Mucous Membranes Moist - Neck Exam Neck Exam: Full ROM. absent: Lymphadenopathy - Respiratory Exam Respiratory Exam: Rales. absent: Rhonchi, Wheezes - Cardiovascular Exam Cardiovascular Exam: REGULAR RHYTHM, +S1, +S2 - GI/Abdominal Exam GI & Abdominal Exam: Soft. absent: Distended, Tenderness - Extremities Exam Extremities Exam: absent: Joint Swelling, Pedal Edema - Neurological Exam Neurological Exam: Alert, Awake, Oriented x3 - Psychiatric Exam Psychiatric exam: Normal Affect, Normal Mood - Skin Skin Exam: Normal Color, Warm Assessment and Plan (1) Influenza Status: Acute (2) Pneumonia Status: Acute (3) Bronchiectasis Status: Acute (4) ESRD (end stage renal disease) Status: Acute (5) ILD (interstitial lung disease) Status: Acute (6) Pulmonary fibrosis Status: Acute - Assessment and Plan (Free Text) Plan: clinically improving HD in am BP stable afebrile continue Abx
--- NOTE | 2018-08-12 18:11 | CP.PCM.PN ---
Subjective - Date & Time of Evaluation Date of Evaluation: 08/12/18 Time of Evaluation: 08:00 - Subjective Subjective: improving'less cough less sob Objective - Vital Signs/Intake and Output Vital Signs (last 24 hours): Temp Pulse Resp BP Pulse Ox 97.4 F L 83 20 140/69 95 08/12/18 16:00 08/12/18 16:00 08/12/18 16:00 08/12/18 16:00 08/12/18 16:00 Intake and Output: 08/12/18 08/12/18 06:59 18:59 Output Total 300 Balance -300 - Medications Medications: Current Medications Acetaminophen (Tylenol 325mg Tab) 650 mg PO Q6 PRN PRN Reason: Fever >100.4 F Last Admin: 08/10/18 00:20 Dose: 650 mg Acetylcysteine (Acetylcysteine 20%) 4 ml INH RQ4 [facility] Last Admin: 08/12/18 17:00 Dose: 4 ml Albuterol/Ipratropium (Duoneb 3 Mg/0.5 Mg (3 Ml) Ud) 3 ml INH RQ4 [facility] Last Admin: 08/12/18 17:00 Dose: 3 ml Amlodipine Besylate (Norvasc) 5 mg PO DAILY [facility] Last Admin: 08/12/18 09:49 Dose: 5 mg Calcitriol (Rocaltrol) 0.25 mcg PO DAILY [facility] Last Admin: 08/12/18 09:52 Dose: 0.25 mcg Dextrose (Dextrose 50% Inj) 0 ml IV STAT PRN; Protocol PRN Reason: Hypoglycemia Protocol Dextrose (Glutose 15) 0 gm PO ONCE PRN; Protocol PRN Reason: Hypoglycemia Protocol Epoetin Justino (Procrit) 6,000 unit IV TTS [facility] Last Admin: 08/11/18 12:20 Dose: 6,000 unit Fluticasone/Vilanterol (Breo Ellipta 100-25 Mcg Inh) 1 puff INH RQD [facility] Last Admin: 08/12/18 08:18 Dose: 1 puff Folic Acid (Folic Acid) 1 mg PO DAILY [facility] Last Admin: 08/12/18 09:52 Dose: 1 mg Glucagon (Glucagen Diagnostic Kit) 0 mg IM STAT PRN; Protocol PRN Reason: Hypoglycemia Protocol Guaifenesin (Robitussin) 200 mg PO Q4H PRN PRN Reason: Cough and congestion Last Admin: 08/09/18 21:45 Dose: 200 mg Heparin Sodium (Porcine) (Heparin) 5,000 units SC Q8 [facility] Last Admin: 08/12/18 14:25 Dose: Not Given Dextrose (Dextrose 5% In Water 1000 Ml) 1,000 mls @ 0 mls/hr IV .Q0M PRN; Protocol PRN Reason: Hypoglycemia Protocol Insulin Human Regular (Novolin R) 0 unit SC ACHS [facility]; Protocol Last Admin: 08/12/18 12:10 Dose: 10 units Methylprednisolone (Solu-Medrol) 40 mg IV DAILY [facility] Moxifloxacin HCl (Avelox) 400 mg PO DAILY [facility]; Protocol Oseltamivir Phosphate (Tamiflu Susp) 30 mg PO DAILY [facility]; Protocol Stop: 08/13/18 10:01 Last Admin: 08/12/18 09:52 Dose: 5 ml Pantoprazole Sodium (Protonix Inj) 40 mg IVP DAILY [facility] Last Admin: 08/12/18 09:53 Dose: 40 mg Rosuvastatin Calcium (Crestor) 5 mg PO HS [facility] Last Admin: 08/11/18 22:02 Dose: 5 mg - Labs Labs: 08/12/18 06:19 08/12/18 06:19 - Constitutional Appears: Non-toxic, Chronically Ill - Head Exam Head Exam: NORMOCEPHALIC - Eye Exam Eye Exam: absent: Scleral icterus - ENT Exam ENT Exam: Mucous Membranes Dry - Neck Exam Neck Exam: absent: Lymphadenopathy - Respiratory Exam Respiratory Exam: Decreased Breath Sounds - Cardiovascular Exam Cardiovascular Exam: REGULAR RHYTHM - GI/Abdominal Exam GI & Abdominal Exam: Distended, Soft - Rectal Exam Rectal Exam: Deferred - Exam Exam: NORMAL INSPECTION - Extremities Exam Extremities Exam: absent: Pedal Edema - Back Exam Back Exam: absent: CVA tenderness (L), CVA tenderness (R) - Neurological Exam Neurological Exam: Alert, Awake, CN II-XII Intact, Oriented x3 Neuro motor strength exam: Left Upper Extremity: 5, Right Upper Extremity: 5, Left Lower Extremity: 5, Right Lower Extremity: 5 - Psychiatric Exam Psychiatric exam: Normal Mood - Skin Skin Exam: Dry Assessment and Plan (1) Influenza Status: Acute (2) Pneumonia Status: Acute (3) Bronchiectasis Status: Acute (4) CKD (chronic kidney disease) Status: Acute - Assessment and Plan (Free Text) Assessment: switched to avelox monotherapy possible d/c on same follow up with dr Post
[2018-08-13] MEDS: Acetylcysteine 20% Inhal Soln (4ml) INH SCH ×5 (00:10→19:14)
[2018-08-13] MEDS: Albuterol-Ipratrop 3 mg / 0.5 (3 ml) UD INH SCH ×5 (00:11→19:14)
[2018-08-13 06:23] LABS: BASO % 0.3 % (0.0-2.0); HEMOGLOBIN 9.1 g/dL (12.0-18.0); LYMPH # 0.4 K/uL (1.0-4.3); LYMPH % 3.7 % (20.0-40.0); MEAN CELL VOLUME 101.5 fL (80.0-94.0); MEAN CORPUSCULAR HEMOGLOBIN 32.6 pg (27.0-31.0); MEAN CORPUSCULAR HGB CONC 32.1 g/dL (33.0-37.0); MEAN PLATELET VOLUME 8.6 fL (7.2-11.7); MONO # 0.5 K/uL (0.0-0.8); MONO % 4.3 % (0.0-10.0); NEUT # 9.6 K/uL (1.8-7.0); NEUT % 91.7 % (50.0-75.0); NRBC % 0.1 % (0.0-2.0); PLATELET COUNT 135 K/uL (130-400); RBC 2.79 Mil/uL (4.40-5.90); RED CELL DISTRIBUTION WIDTH 22.4 % (11.5-14.5); WHITE BLOOD COUNT 10.5 K/uL (4.8-10.8)
[2018-08-13 06:37] LABS: ALB/GLOB RATIO 1.2 (1.0-2.1); ALBUMIN 2.8 g/dL (3.5-5.0); CALCIUM 8.1 mg/dl (8.6-10.4)
--- NOTE | 2018-08-13 07:02 | CP.PCM.PN ---
<Lopez Hightower - Last Filed: 08/13/18 06:59> Subjective - Date & Time of Evaluation Date of Evaluation: 08/13/18 Time of Evaluation: 06:59 - Subjective Subjective: HOSPITALIST SERVICE Pt s/e at bedside, denies acute events overnight, breathing ok, says wants to go home, no issues endorsed from nursing Objective - Vital Signs/Intake and Output Vital Signs (last 24 hours): Temp Pulse Resp BP Pulse Ox 98.0 F 86 20 123/66 95 08/13/18 01:01 08/13/18 01:01 08/13/18 01:01 08/13/18 01:01 08/13/18 01:01 Intake and Output: 08/12/18 08/13/18 18:59 06:59 Output Total 300 Balance -300 - Medications Medications: Current Medications Acetaminophen (Tylenol 325mg Tab) 650 mg PO Q6 PRN PRN Reason: Fever >100.4 F Last Admin: 08/10/18 00:20 Dose: 650 mg Acetylcysteine (Acetylcysteine 20%) 4 ml INH RQ4 [facility] Last Admin: 08/13/18 03:14 Dose: Not Given Albuterol/Ipratropium (Duoneb 3 Mg/0.5 Mg (3 Ml) Ud) 3 ml INH RQ4 [facility] Last Admin: 08/13/18 03:14 Dose: Not Given Amlodipine Besylate (Norvasc) 5 mg PO DAILY [facility] Last Admin: 08/12/18 09:49 Dose: 5 mg Calcitriol (Rocaltrol) 0.25 mcg PO DAILY [facility] Last Admin: 08/12/18 09:52 Dose: 0.25 mcg Dextrose (Dextrose 50% Inj) 0 ml IV STAT PRN; Protocol PRN Reason: Hypoglycemia Protocol Dextrose (Glutose 15) 0 gm PO ONCE PRN; Protocol PRN Reason: Hypoglycemia Protocol Epoetin Justino (Procrit) 6,000 unit IV TTS [facility] Last Admin: 08/11/18 12:20 Dose: 6,000 unit Fluticasone/Vilanterol (Breo Ellipta 100-25 Mcg Inh) 1 puff INH RQD [facility] Last Admin: 08/12/18 08:18 Dose: 1 puff Folic Acid (Folic Acid) 1 mg PO DAILY [facility] Last Admin: 08/12/18 09:52 Dose: 1 mg Glucagon (Glucagen Diagnostic Kit) 0 mg IM STAT PRN; Protocol PRN Reason: Hypoglycemia Protocol Guaifenesin (Robitussin) 200 mg PO Q4H PRN PRN Reason: Cough and congestion Last Admin: 08/09/18 21:45 Dose: 200 mg Heparin Sodium (Porcine) (Heparin) 5,000 units SC Q8 [facility] Last Admin: 08/13/18 05:54 Dose: 5,000 units Dextrose (Dextrose 5% In Water 1000 Ml) 1,000 mls @ 0 mls/hr IV .Q0M PRN; Protocol PRN Reason: Hypoglycemia Protocol Insulin Human Regular (Novolin R) 0 unit SC ACHS NEW; Protocol Last Admin: 08/12/18 22:06 Dose: 4 units Methylprednisolone (Solu-Medrol) 40 mg IV DAILY [facility] Moxifloxacin HCl (Avelox) 400 mg PO DAILY [facility]; Protocol Oseltamivir Phosphate (Tamiflu Susp) 30 mg PO DAILY [facility]; Protocol Stop: 08/13/18 10:01 Last Admin: 08/12/18 09:52 Dose: 5 ml Pantoprazole Sodium (Protonix Inj) 40 mg IVP DAILY [facility] Last Admin: 08/12/18 09:53 Dose: 40 mg Rosuvastatin Calcium (Crestor) 5 mg PO HS [facility] Last Admin: 08/12/18 21:17 Dose: 5 mg - Labs Labs: 08/13/18 06:17 08/13/18 06:17 - Additional Findings Additional findings: - Constitutional Appears: Non-toxic, No Acute Distress, Chronically Ill - Head Exam Head Exam: ATRAUMATIC, NORMAL INSPECTION, NORMOCEPHALIC - Eye Exam Eye Exam: EOMI, Normal appearance Pupil Exam: NORMAL ACCOMODATION - ENT Exam ENT Exam: Mucous Membranes Moist, Normal Exam - Neck Exam Neck Exam: Full ROM, Normal Inspection. absent: Tenderness - Respiratory Exam Respiratory Exam: Decreased Breath Sounds, Rhonchi. absent: Accessory Muscle Us e, Respiratory Distress - Cardiovascular Exam Cardiovascular Exam: REGULAR RHYTHM, +S1, +S2 - GI/Abdominal Exam GI & Abdominal Exam: Soft, Normal Bowel Sounds. absent: Distended, Firm, Guarding, Rigid, Tenderness Additional comments: peritoneal cath dressing c/d/i - Extremities Exam Extremities Exam: Full ROM, Normal Capillary Refill, Normal Inspection. absent: Calf Tenderness, Pedal Edema - Back Exam Back Exam: NORMAL INSPECTION - Neurological Exam Neurological Exam: Alert, Awake, Oriented x3 - Psychiatric Exam Psychiatric exam: Normal Affect, Normal Mood - Skin Skin Exam: Dry, Intact, Normal Color, Warm Assessment and Plan - Assessment and Plan (Free Text) Assessment: 82 yo M with PMHx of HTN, DM, ESRD on HD, COPD, pulmonary fibrosis, chronic anemia presenting after missed HD session with fever, SOB. Found to be flu positive, RLL pneumonia. Plan: Influenza Positive -flu positive -given tamiflu 75 mg x 1 in ED -Tamiflu renal dosin mg PO daily for total of 5 days -can d/c isolation precautions Pneumonia RLL -CXR (08/09): Interval worsening R basal infiltrate w/ or without subsegmental discoid-like atelectasis. Mild interval increased pulmonary venous congestion. -s/p vanco x 1, cefepime x 1 in ED -day 07/02 of Avalox IVPB -off cefepoime and vanco -Robitussin prn for cough -ID recs (Dr. Boone) appreciated ESRD on HD -BUN/Cr: 38/2.5 (08/12) -Nephrology (Dr. Dutton) on case -Due for HD session today -f/u recs -calcitriol 0.25 mcg PO daily -folic acid 1 mg PO daily Hx of COPD Pulmonary fibrosis -CXR (08/09): Interval worsening R basal infiltrate w/ or without subsegmental discoid-like atelectasis. Mild interval increased pulmonary venous congestion. -f/u Pulm (Dr. Post) recs -duonebs q4 new -solumedrol 40 mg qD -breo ellipta 1 puff qD -mucomyst q4h new Hx T2DM -home med held -ISS high dose -accuchecks achs -hypoglycemic protocol Hx of HTN -Norvasc 5 mg PO daily Hx of HLD -Crestor 5 mg PO HS NEW Anemia of chronic disease -2/2 underlying renal failure -H/H: 9.4/29.5 (08/12) -on procrit per Nephro recs -continue to monitor PPx, Diet, Disposition -DVT ppx: scds, heparin 5000 units -GI ppx: protonix 40 IV daily -Diet: renal low salt, HHD -PT on case -Disposition: possible d/c tomorrow after HD session. Please f/u with social work prior to d/c and ensure outpatient HD center is all set up. <Anderson Bosch Jolly - Last Filed: 08/13/18 11:29> Objective - Vital Signs/Intake and Output Vital Signs (last 24 hours): Temp Pulse Resp BP Pulse Ox 98 F 83 20 133/73 98 08/13/18 09:25 08/13/18 09:25 08/13/18 09:25 08/13/18 10:55 08/13/18 09:25 - Medications Medications: Current Medications Acetaminophen (Tylenol 325mg Tab) 650 mg PO Q6 PRN PRN Reason: Fever >100.4 F Last Admin: 08/10/18 00:20 Dose: 650 mg Acetylcysteine (Acetylcysteine 20%) 4 ml INH RQ4 [facility] Last Admin: 08/13/18 10:57 Dose: Not Given Albuterol/Ipratropium (Duoneb 3 Mg/0.5 Mg (3 Ml) Ud) 3 ml INH RQ4 [facility] Last Admin: 08/13/18 07:15 Dose: 3 ml Amlodipine Besylate (Norvasc) 5 mg PO DAILY [facility] Last Admin: 08/13/18 09:05 Dose: Not Given Calcitriol (Rocaltrol) 0.25 mcg PO DAILY [facility] Last Admin: 08/13/18 09:05 Dose: Not Given Dextrose (Dextrose 50% Inj) 0 ml IV STAT PRN; Protocol PRN Reason: Hypoglycemia Protocol Dextrose (Glutose 15) 0 gm PO ONCE PRN; Protocol PRN Reason: Hypoglycemia Protocol Epoetin Justino (Procrit) 6,000 unit IV TTS [facility] Last Admin: 08/13/18 10:39 Dose: 6,000 unit Fluticasone/Vilanterol (Breo Ellipta 100-25 Mcg Inh) 1 puff INH RQD [facility] Last Admin: 08/13/18 09:05 Dose: Not Given Folic Acid (Folic Acid) 1 mg PO DAILY [facility] Last Admin: 08/13/18 09:05 Dose: Not Given Glucagon (Glucagen Diagnostic Kit) 0 mg IM STAT PRN; Protocol PRN Reason: Hypoglycemia Protocol Guaifenesin (Robitussin) 200 mg PO Q4H PRN PRN Reason: Cough and congestion Last Admin: 08/09/18 21:45 Dose: 200 mg Heparin Sodium (Porcine) (Heparin) 5,000 units SC Q8 [facility] Last Admin: 08/13/18 05:54 Dose: 5,000 units Dextrose (Dextrose 5% In Water 1000 Ml) 1,000 mls @ 0 mls/hr IV .Q0M PRN; Protocol PRN Reason: Hypoglycemia Protocol Insulin Human Regular (Novolin R) 0 unit SC ACHS NEW; Protocol Last Admin: 08/13/18 07:47 Dose: 6 units Methylprednisolone (Solu-Medrol) 40 mg IV DAILY [facility] Last Admin: 08/13/18 09:05 Dose: Not Given Moxifloxacin HCl (Avelox) 400 mg PO DAILY [facility]; Protocol Last Admin: 08/13/18 09:05 Dose: Not Given Pantoprazole Sodium (Protonix Inj) 40 mg IVP DAILY [facility] Last Admin: 08/13/18 09:05 Dose: Not Given Rosuvastatin Calcium (Crestor) 5 mg PO HS [facility] Last Admin: 08/12/18 21:17 Dose: 5 mg - Labs Labs: 08/13/18 06:17 08/13/18 06:17 Attending/Attestation - Attestation I have personally seen and examined this patient.: Yes I have fully participated in the care of the patient.: Yes I have reviewed all pertinent clinical information, including history, physical exam and plan: Yes Notes (Text): 08/13/18 11:25 Medical attending: Patient was seen and examined by me. Agree with the above note by the resident The patient was not in any acute distress when I came and saw him he was pending HD today. Patient had a lot of questions with reguards to his HD placement as to when it would be ready - in particular his concern was transportation too and from the HD center, he explains his family is not able to bring him to and from HD. Will have to clarify these with adoption social worker before discharge Anderson Bosch
[2018-08-13] MEDS: (Novolin R) Insulin Human Regular 100 units/ml vial SC SCH ×3 (07:47→21:08)
--- NOTE | 2018-08-13 08:41 | CP.PCM.PN ---
Subjective - Date & Time of Evaluation Date of Evaluation: 08/13/18 Time of Evaluation: 08:39 - Subjective Subjective: in bed, comfortable complaints of cough no phlegmn no SOB or chest pain afebrile ROS- as per HPI, rest 10 point ROS negative Objective - Vital Signs/Intake and Output Vital Signs (last 24 hours): Temp Pulse Resp BP Pulse Ox 98.6 F 77 18 120/70 96 08/13/18 07:00 08/13/18 07:00 08/13/18 07:00 08/13/18 07:00 08/13/18 07:00 - Medications Medications: Current Medications Acetaminophen (Tylenol 325mg Tab) 650 mg PO Q6 PRN PRN Reason: Fever >100.4 F Last Admin: 08/10/18 00:20 Dose: 650 mg Acetylcysteine (Acetylcysteine 20%) 4 ml INH RQ4 [facility] Last Admin: 08/13/18 03:14 Dose: Not Given Albuterol/Ipratropium (Duoneb 3 Mg/0.5 Mg (3 Ml) Ud) 3 ml INH RQ4 [facility] Last Admin: 08/13/18 03:14 Dose: Not Given Amlodipine Besylate (Norvasc) 5 mg PO DAILY [facility] Last Admin: 08/12/18 09:49 Dose: 5 mg Calcitriol (Rocaltrol) 0.25 mcg PO DAILY [facility] Last Admin: 08/12/18 09:52 Dose: 0.25 mcg Dextrose (Dextrose 50% Inj) 0 ml IV STAT PRN; Protocol PRN Reason: Hypoglycemia Protocol Dextrose (Glutose 15) 0 gm PO ONCE PRN; Protocol PRN Reason: Hypoglycemia Protocol Epoetin Justino (Procrit) 6,000 unit IV TTS [facility] Last Admin: 08/11/18 12:20 Dose: 6,000 unit Fluticasone/Vilanterol (Breo Ellipta 100-25 Mcg Inh) 1 puff INH RQD [facility] Last Admin: 08/12/18 08:18 Dose: 1 puff Folic Acid (Folic Acid) 1 mg PO DAILY [facility] Last Admin: 08/12/18 09:52 Dose: 1 mg Glucagon (Glucagen Diagnostic Kit) 0 mg IM STAT PRN; Protocol PRN Reason: Hypoglycemia Protocol Guaifenesin (Robitussin) 200 mg PO Q4H PRN PRN Reason: Cough and congestion Last Admin: 08/09/18 21:45 Dose: 200 mg Heparin Sodium (Porcine) (Heparin) 5,000 units SC Q8 [facility] Last Admin: 08/13/18 05:54 Dose: 5,000 units Dextrose (Dextrose 5% In Water 1000 Ml) 1,000 mls @ 0 mls/hr IV .Q0M PRN; Protocol PRN Reason: Hypoglycemia Protocol Insulin Human Regular (Novolin R) 0 unit SC ACHS [facility]; Protocol Last Admin: 08/13/18 07:47 Dose: 6 units Methylprednisolone (Solu-Medrol) 40 mg IV DAILY [facility] Moxifloxacin HCl (Avelox) 400 mg PO DAILY [facility]; Protocol Oseltamivir Phosphate (Tamiflu Susp) 30 mg PO DAILY [facility]; Protocol Stop: 08/13/18 10:01 Last Admin: 08/12/18 09:52 Dose: 5 ml Pantoprazole Sodium (Protonix Inj) 40 mg IVP DAILY [facility] Last Admin: 08/12/18 09:53 Dose: 40 mg Rosuvastatin Calcium (Crestor) 5 mg PO HS [facility] Last Admin: 08/12/18 21:17 Dose: 5 mg - Labs Labs: 08/13/18 06:17 08/13/18 06:17 - Constitutional Appears: Well, Non-toxic - Head Exam Head Exam: ATRAUMATIC, NORMOCEPHALIC - Eye Exam Eye Exam: EOMI, PERRL - ENT Exam ENT Exam: Mucous Membranes Moist - Neck Exam Neck Exam: Full ROM - Respiratory Exam Respiratory Exam: Rales. absent: Clear to Ausculation Bilateral Additional comments: bibasilar rales - Cardiovascular Exam Cardiovascular Exam: REGULAR RHYTHM, +S1, +S2 - GI/Abdominal Exam GI & Abdominal Exam: Soft. absent: Distended, Tenderness - Extremities Exam Extremities Exam: Full ROM. absent: Pedal Edema - Neurological Exam Neurological Exam: Alert, Awake, Oriented x3 - Psychiatric Exam Psychiatric exam: Normal Affect, Normal Mood - Skin Skin Exam: Normal Color, Warm Assessment and Plan (1) Influenza Status: Acute (2) Pneumonia Status: Acute (3) Bronchiectasis Status: Acute (4) ESRD (end stage renal disease) Status: Acute (5) ILD (interstitial lung disease) Status: Acute (6) Pulmonary fibrosis Status: Acute - Assessment and Plan (Free Text) Plan: HD today continue Abx and bronchodilators bp stable physical threrapy
[2018-08-13 08:52] LABS: BANDS 4 % (0-2); LYMPHOCYTE 2 % (20-40); MONOCYTE 4 % (0-10); NEUTROPHIL 90 % (50-75); PLATELET ESTIMATE NORMAL (NORMAL); TOTAL CELLS COUNTED 100
[2018-08-13 08:53] LABS: HYPOCHROMIC SLIGHT; POLYCHROMIC SLIGHT
[2018-08-13 08:54] LABS: LARGE PLATELETS PRESENT
[2018-08-13 08:55] LABS: POIKILOCYTOSIS SLIGHT; TEARDROP CELLS SLIGHT
[2018-08-13 08:59] LABS: ANISOCYTOSIS MODERATE; SCHISTOCYTES SLIGHT
[2018-08-13] MEDS: MethylPREDNISolone 40 mg Vial IV SCH (09:05)
[2018-08-13] MEDS: Fluticasone-Vilanterol 100/25mcg Diskus INH SCH (09:05)
[2018-08-13] MEDS: Oseltamivir 6 MG/ML PO SCH (09:05)
[2018-08-13] MEDS: Epoetin Alfa Dialysis 3000 UNIT/ML Inj IV SCH (10:39)
--- NOTE | 2018-08-13 12:54 | CP.PCM.PN ---
Subjective - Date & Time of Evaluation Date of Evaluation: 08/13/18 Time of Evaluation: 11:00 - Subjective Subjective: Patient seen and examined during hemodialysis Lying comfortably in no distress Cough and shortness of breath much improved Afebrile Objective - Vital Signs/Intake and Output Vital Signs (last 24 hours): Temp Pulse Resp BP Pulse Ox 97.6 F 90 20 137/72 97 08/13/18 12:25 08/13/18 12:25 08/13/18 12:25 08/13/18 12:25 08/13/18 12:25 - Medications Medications: Current Medications Acetaminophen (Tylenol 325mg Tab) 650 mg PO Q6 PRN PRN Reason: Fever >100.4 F Last Admin: 08/10/18 00:20 Dose: 650 mg Acetylcysteine (Acetylcysteine 20%) 4 ml INH RQ4 [facility] Last Admin: 08/13/18 10:57 Dose: Not Given Albuterol/Ipratropium (Duoneb 3 Mg/0.5 Mg (3 Ml) Ud) 3 ml INH RQ4 [facility] Last Admin: 08/13/18 07:15 Dose: 3 ml Amlodipine Besylate (Norvasc) [address] [facility] Last Admin: 08/13/18 09:05 Dose: Not Given Calcitriol (Rocaltrol) 0.[address] [facility] Last Admin: 08/13/18 09:05 Dose: Not Given Dextrose (Dextrose 50% Inj) 0 ml IV STAT PRN; Protocol PRN Reason: Hypoglycemia Protocol Dextrose (Glutose 15) 0 gm PO ONCE PRN; Protocol PRN Reason: Hypoglycemia Protocol Epoetin Justino (Procrit) 6,[address] [facility] Last Admin: 08/13/18 10:39 Dose: 6,000 unit Fluticasone/Vilanterol (Breo Ellipta 100-25 Mcg Inh) 1 puff INH RQD [facility] Last Admin: 08/13/18 09:05 Dose: Not Given Folic Acid (Folic Acid) [address] [facility] Last Admin: 08/13/18 09:05 Dose: Not Given Glucagon (Glucagen Diagnostic Kit) 0 mg IM STAT PRN; Protocol PRN Reason: Hypoglycemia Protocol Guaifenesin (Robitussin) 200 mg PO Q4H PRN PRN Reason: Cough and congestion Last Admin: 08/09/18 21:45 Dose: 200 mg Heparin Sodium (Porcine) (Heparin) 5,[address] [facility] Last Admin: 08/13/18 05:54 Dose: 5,000 units Dextrose (Dextrose 5% In Water 1000 Ml) 1,000 mls @ 0 mls/hr IV .Q0M PRN; Protocol PRN Reason: Hypoglycemia Protocol Insulin Human Regular (Novolin R) [address] [facility]; Protocol Last Admin: 08/13/18 07:47 Dose: 6 units Methylprednisolone (Solu-Medrol) [address] [facility] Last Admin: 08/13/18 09:05 Dose: Not Given Moxifloxacin HCl (Avelox) [address] [facility]; Protocol Last Admin: 08/13/18 09:05 Dose: Not Given Pantoprazole Sodium (Protonix Inj) [address] [facility] Last Admin: 08/13/18 09:05 Dose: Not Given Rosuvastatin Calcium (Crestor) [address] [facility] Last Admin: 08/12/18 21:17 Dose: 5 mg - Labs Labs: 08/13/18 06:17 08/13/18 06:17 - Head Exam Head Exam: ATRAUMATIC, NORMOCEPHALIC - ENT Exam ENT Exam: Mucous Membranes Moist - Respiratory Exam Respiratory Exam: Decreased Breath Sounds - Cardiovascular Exam Cardiovascular Exam: REGULAR RHYTHM - GI/Abdominal Exam GI & Abdominal Exam: Soft, Normal Bowel Sounds - Extremities Exam Extremities Exam: Normal Inspection - Neurological Exam Neurological Exam: Alert Assessment and Plan (1) ILD (interstitial lung disease) Assessment & Plan: Taper steroids and cont p.o. antibiotics Stable from pulmonary standpoint Continue hemodialysis Status: Acute (2) Influenza Status: Acute (3) ESRD (end stage renal disease) Status: Acute
--- NOTE | 2018-08-14 01:15 | CP.PCM.PN ---
<Lopez Hightower - Last Filed: 08/14/18 01:12> Subjective - Date & Time of Evaluation Date of Evaluation: 08/14/18 Time of Evaluation: 01:12 - Subjective Subjective: HOSPITALIST SERVICE Pt s/e at bedside. complains that he wants to go home and get outpt spot. feels better after HD treatment. denies cp sob fc nv, as per nursing no acute events endorsed overnight Objective - Vital Signs/Intake and Output Vital Signs (last 24 hours): Temp Pulse Resp BP Pulse Ox 99.2 F 105 H 20 144/70 92 L 08/13/18 23:20 08/13/18 23:20 08/13/18 23:20 08/13/18 23:20 08/13/18 23:20 - Medications Medications: Current Medications Acetaminophen (Tylenol 325mg Tab) 650 mg PO Q6 PRN PRN Reason: Fever >100.4 F Last Admin: 08/10/18 00:20 Dose: 650 mg Acetylcysteine (Acetylcysteine 20%) 4 ml INH RQ4 NEW Last Admin: 08/13/18 19:14 Dose: 4 ml Albuterol/Ipratropium (Duoneb 3 Mg/0.5 Mg (3 Ml) Ud) 3 ml INH RQ4 [facility] Last Admin: 08/13/18 19:14 Dose: 3 ml Amlodipine Besylate (Norvasc) 5 mg PO DAILY [facility] Last Admin: 08/13/18 09:05 Dose: Not Given Calcitriol (Rocaltrol) 0.25 mcg PO DAILY [facility] Last Admin: 08/13/18 09:05 Dose: Not Given Dextrose (Dextrose 50% Inj) 0 ml IV STAT PRN; Protocol PRN Reason: Hypoglycemia Protocol Dextrose (Glutose 15) 0 gm PO ONCE PRN; Protocol PRN Reason: Hypoglycemia Protocol Epoetin Justino (Procrit) 6,000 unit IV TTS [facility] Last Admin: 08/13/18 10:39 Dose: 6,000 unit Fluticasone/Vilanterol (Breo Ellipta 100-25 Mcg Inh) 1 puff INH RQD [facility] Last Admin: 08/13/18 09:05 Dose: Not Given Folic Acid (Folic Acid) 1 mg PO DAILY [facility] Last Admin: 08/13/18 09:05 Dose: Not Given Glucagon (Glucagen Diagnostic Kit) 0 mg IM STAT PRN; Protocol PRN Reason: Hypoglycemia Protocol Guaifenesin (Robitussin) 200 mg PO Q4H PRN PRN Reason: Cough and congestion Last Admin: 08/09/18 21:45 Dose: 200 mg Heparin Sodium (Porcine) (Heparin) 5,000 units SC Q8 [facility] Last Admin: 08/13/18 21:09 Dose: 5,000 units Dextrose (Dextrose 5% In Water 1000 Ml) 1,000 mls @ 0 mls/hr IV .Q0M PRN; Protocol PRN Reason: Hypoglycemia Protocol Insulin Human Regular (Novolin R) 0 unit SC ACHS [facility]; Protocol Last Admin: 08/13/18 21:08 Dose: Not Given Methylprednisolone (Solu-Medrol) 40 mg IV DAILY [facility] Last Admin: 08/13/18 09:05 Dose: Not Given Moxifloxacin HCl (Avelox) 400 mg PO DAILY [facility]; Protocol Last Admin: 08/13/18 09:05 Dose: Not Given Pantoprazole Sodium (Protonix Inj) 40 mg IVP DAILY [facility] Last Admin: 08/13/18 09:05 Dose: Not Given Rosuvastatin Calcium (Crestor) 5 mg PO HS [facility] Last Admin: 08/13/18 21:09 Dose: 5 mg - Labs Labs: 08/13/18 06:17 08/13/18 06:17 - Additional Findings Additional findings: - Constitutional Appears: Non-toxic, No Acute Distress, Chronically Ill - Head Exam Head Exam: ATRAUMATIC, NORMAL INSPECTION, NORMOCEPHALIC - Eye Exam Eye Exam: EOMI, Normal appearance Pupil Exam: NORMAL ACCOMODATION - ENT Exam ENT Exam: Mucous Membranes Moist, Normal Exam - Neck Exam Neck Exam: Full ROM, Normal Inspection. absent: Tenderness - Respiratory Exam Respiratory Exam: Decreased Breath Sounds, Rhonchi. absent: Accessory Muscle Use, Respiratory Distress - Cardiovascular Exam Cardiovascular Exam: REGULAR RHYTHM, +S1, +S2 - GI/Abdominal Exam GI & Abdominal Exam: Soft, Normal Bowel Sounds. absent: Distended, Firm, Guarding, Rigid, Tenderness Additional comments: peritoneal cath dressing c/d/i - Extremities Exam Extremities Exam: Full ROM, Normal Capillary Refill, Normal Inspection. absent: Calf Tenderness, Pedal Edema - Back Exam Back Exam: NORMAL INSPECTION - Neurological Exam Neurological Exam: Alert, Awake, Oriented x3 - Psychiatric Exam Psychiatric exam: Normal Affect, Normal Mood - Skin Skin Exam: Dry, Intact, Normal Color, Warm Assessment and Plan - Assessment and Plan (Free Text) Assessment: 82 yo M with PMHx of HTN, DM, ESRD on HD, COPD, pulmonary fibrosis, chronic anemia presenting after missed HD session with fever, SOB. Found to be flu positive, RLL pneumonia. Plan: Influenza Positive -flu positive -given tamiflu 75 mg x 1 in ED -Tamiflu renal dosin mg PO daily for total of 5 days -can d/c isolation precautions Pneumonia RLL -CXR (08/09): Interval worsening R basal infiltrate w/ or without subsegmental discoid-like atelectasis. Mild interval increased pulmonary venous congestion. -s/p vanco x 1, cefepime x 1 in ED -day 08/02 of Avalox IVPB -off cefepoime and vanco -Robitussin prn for cough -ID recs (Dr. Boone) appreciated ESRD on HD -BUN/Cr: 38/2.5 (08/12) -Nephrology (Dr. Dutton) on case -HD yesterday -f/u recs -calcitriol 0.25 mcg PO daily -folic acid 1 mg PO daily Hx of COPD Pulmonary fibrosis -CXR (08/09): Interval worsening R basal infiltrate w/ or without subsegmental discoid-like atelectasis. Mild interval increased pulmonary venous congestion. -f/u Pulm (Dr. Post) recs -duonebs q4 new -solumedrol taper -breo ellipta 1 puff qD -mucomyst q4h new Hx T2DM -home med held -ISS high dose -accuchecks achs -hypoglycemic protocol Hx of HTN -Norvasc 5 mg PO daily Hx of HLD -Crestor 5 mg PO HS NEW Anemia of chronic disease -2/2 underlying renal failure -H/H: 9.4/29.5 (08/12) -on procrit per Nephro recs -continue to monitor PPx, Diet, Disposition -DVT ppx: scds, heparin 5000 units -GI ppx: protonix 40 IV daily -Diet: renal low salt, HHD -PT on case -Disposition: possible d/c when HD center is all set up. <Anderson Bosch H - Last Filed: 08/14/18 10:13> Objective - Vital Signs/Intake and Output Vital Signs (last 24 hours): Temp Pulse Resp BP Pulse Ox 99.2 F 105 H 20 144/70 92 L 08/13/18 23:20 08/13/18 23:20 08/13/18 23:20 08/13/18 23:20 08/13/18 23:20 - Medications Medications: Current Medications Acetaminophen (Tylenol 325mg Tab) 650 mg PO Q6 PRN PRN Reason: Fever >100.4 F Last Admin: 08/10/18 00:20 Dose: 650 mg Acetylcysteine (Acetylcysteine 20%) 4 ml INH RQ4 [facility] Last Admin: 08/14/18 04:35 Dose: Not Given Albuterol/Ipratropium (Duoneb 3 Mg/0.5 Mg (3 Ml) Ud) 3 ml INH RQ4 [facility] Last Admin: 08/14/18 04:35 Dose: Not Given Amlodipine Besylate (Norvasc) 5 mg PO DAILY [facility] Last Admin: 08/14/18 09:44 Dose: 5 mg Calcitriol (Rocaltrol) 0.25 mcg PO DAILY [facility] Last Admin: 08/14/18 09:43 Dose: 0.25 mcg Dextrose (Dextrose 50% Inj) 0 ml IV STAT PRN; Protocol PRN Reason: Hypoglycemia Protocol Dextrose (Glutose 15) 0 gm PO ONCE PRN; Protocol PRN Reason: Hypoglycemia Protocol Epoetin Justino (Procrit) 6,000 unit IV TTS [facility] Last Admin: 08/13/18 10:39 Dose: 6,000 unit Fluticasone/Vilanterol (Breo Ellipta 100-25 Mcg Inh) 1 puff INH RQD [facility] Last Admin: 08/13/18 09:05 Dose: Not Given Folic Acid (Folic Acid) 1 mg PO DAILY [facility] Last Admin: 08/14/18 09:44 Dose: 1 mg Glucagon (Glucagen Diagnostic Kit) 0 mg IM STAT PRN; Protocol PRN Reason: Hypoglycemia Protocol Guaifenesin (Robitussin) 200 mg PO Q4H PRN PRN Reason: Cough and congestion Last Admin: 08/09/18 21:45 Dose: 200 mg Heparin Sodium (Porcine) (Heparin) 5,000 units SC Q8 [facility] Last Admin: 08/14/18 05:58 Dose: 5,000 units Dextrose (Dextrose 5% In Water 1000 Ml) 1,000 mls @ 0 mls/hr IV .Q0M PRN; Protocol PRN Reason: Hypoglycemia Protocol Insulin Human Regular (Novolin R) 0 unit SC ACHS [facility]; Protocol Last Admin: 08/14/18 09:45 Dose: 2 units Methylprednisolone (Solu-Medrol) 40 mg IV DAILY [facility] Last Admin: 08/14/18 09:41 Dose: 40 mg Moxifloxacin HCl (Avelox) 400 mg PO DAILY [facility]; Protocol Last Admin: 08/14/18 09:44 Dose: 400 mg Pantoprazole Sodium (Protonix Inj) 40 mg IVP DAILY [facility] Last Admin: 08/14/18 09:43 Dose: 40 mg Rosuvastatin Calcium (Crestor) 5 mg PO HS [facility] Last Admin: 08/13/18 21:09 Dose: 5 mg - Labs Labs: 08/14/18 08:36 08/14/18 08:36 Attending/Attestation - Attestation I have personally seen and examined this patient.: Yes I have fully participated in the care of the patient.: Yes I have reviewed all pertinent clinical information, including history, physical exam and plan: Yes Notes (Text): Medical attending: Patient was seen and examined by me. Reviewed the above note by the resident and agree with the above We will try to discharge patient today. He has a spot at [facility] on [address] for TTS HD Patient explained he felt depressed and frustrated about being in the hospital for so long. The patient had questions about how he would be getting to HD and he was very concerned about this since he has limited mobility himself. He was very concerned because he explained his family members would not be able to transport him to HD I did not know either and I spoke with Nabila Hermosillo [phone] - the patient's daughter - about transportation and she explained that there will be a private company that will be taking him to [facility] on TTS. This wasn't documented so I was not aware of this, I went back and told the patient. Anderson Bosch
[2018-08-14] MEDS: Acetylcysteine 20% Inhal Soln (4ml) INH SCH ×5 (01:52→16:13)
[2018-08-14] MEDS: Albuterol-Ipratrop 3 mg / 0.5 (3 ml) UD INH SCH ×5 (01:52→16:13)
[2018-08-14 08:43] LABS: BASO % 0.1 % (0.0-2.0); EOS % 0.6 % (0.0-4.0); HEMOGLOBIN 9.6 g/dL (12.0-18.0); LYMPH # 0.4 K/uL (1.0-4.3); LYMPH % 4.9 % (20.0-40.0); MEAN CELL VOLUME 100.3 fL (80.0-94.0); MEAN CORPUSCULAR HEMOGLOBIN 33.2 pg (27.0-31.0); MEAN CORPUSCULAR HGB CONC 33.1 g/dL (33.0-37.0); MEAN PLATELET VOLUME 8.5 fL (7.2-11.7); MONO # 0.3 K/uL (0.0-0.8); MONO % 3.6 % (0.0-10.0); NEUT # 8.1 K/uL (1.8-7.0); NEUT % 90.8 % (50.0-75.0); PLATELET COUNT 144 K/uL (130-400); WHITE BLOOD COUNT 8.9 K/uL (4.8-10.8)
[2018-08-14 09:10] LABS: LYMPHOCYTE 4 % (20-40); MONOCYTE 2 % (0-10); NEUTROPHIL 94 % (50-75); PLATELET ESTIMATE NORMAL (NORMAL); TOTAL CELLS COUNTED 100
[2018-08-14 09:11] LABS: ANISOCYTOSIS MARKED; POIKILOCYTOSIS SLIGHT; POLYCHROMIC SLIGHT
[2018-08-14 09:12] LABS: HYPOCHROMIC SLIGHT; LARGE PLATELETS PRESENT; OVALOCYTES SLIGHT; SCHISTOCYTES SLIGHT; TEARDROP CELLS SLIGHT
[2018-08-14 09:33] LABS: ALB/GLOB RATIO 1.1 (1.0-2.1); ALBUMIN 2.7 g/dL (3.5-5.0); CALCIUM 7.9 mg/dl (8.6-10.4)
[2018-08-14] MEDS: MethylPREDNISolone 40 mg Vial IV SCH (09:41)
[2018-08-14] MEDS: (Novolin R) Insulin Human Regular 100 units/ml vial SC SCH ×4 (09:45→21:04)
[2018-08-14] MEDS: Fluticasone-Vilanterol 100/25mcg Diskus INH SCH (11:11)
--- NOTE | 2018-08-14 16:54 | CP.PCM.PN ---
Subjective - Date & Time of Evaluation Date of Evaluation: 08/14/18 Time of Evaluation: 09:00 - Subjective Subjective: afebriule less sob no fever Objective - Vital Signs/Intake and Output Vital Signs (last 24 hours): Temp Pulse Resp BP Pulse Ox 98.0 F 91 H 20 150/68 96 08/14/18 07:30 08/14/18 07:30 08/14/18 07:30 08/14/18 07:30 08/14/18 07:30 - Medications Medications: Current Medications Acetaminophen (Tylenol 325mg Tab) 650 mg PO Q6 PRN PRN Reason: Fever >100.4 F Last Admin: 08/10/18 00:20 Dose: 650 mg Acetylcysteine (Acetylcysteine 20%) 4 ml INH RQ4 [facility] Last Admin: 08/14/18 16:13 Dose: 4 ml Albuterol/Ipratropium (Duoneb 3 Mg/0.5 Mg (3 Ml) Ud) 3 ml INH RQ4 [facility] Last Admin: 08/14/18 16:13 Dose: 3 ml Amlodipine Besylate (Norvasc) 5 mg PO DAILY [facility] Last Admin: 08/14/18 09:44 Dose: 5 mg Calcitriol (Rocaltrol) 0.25 mcg PO DAILY [facility] Last Admin: 08/14/18 09:43 Dose: 0.25 mcg Dextrose (Dextrose 50% Inj) 0 ml IV STAT PRN; Protocol PRN Reason: Hypoglycemia Protocol Dextrose (Glutose 15) 0 gm PO ONCE PRN; Protocol PRN Reason: Hypoglycemia Protocol Epoetin Justino (Procrit) 6,000 unit IV TTS [facility] Last Admin: 08/13/18 10:39 Dose: 6,000 unit Fluticasone/Vilanterol (Breo Ellipta 100-25 Mcg Inh) 1 puff INH RQD [facility] Last Admin: 08/14/18 11:11 Dose: 1 puff Folic Acid (Folic Acid) 1 mg PO DAILY [facility] Last Admin: 08/14/18 09:44 Dose: 1 mg Glucagon (Glucagen Diagnostic Kit) 0 mg IM STAT PRN; Protocol PRN Reason: Hypoglycemia Protocol Guaifenesin (Robitussin) 200 mg PO Q4H PRN PRN Reason: Cough and congestion Last Admin: 08/09/18 21:45 Dose: 200 mg Heparin Sodium (Porcine) (Heparin) 5,000 units SC Q8 [facility] Last Admin: 08/14/18 13:35 Dose: 5,000 units Insulin Human Regular (Novolin R) 0 unit SC ACHS [facility]; Protocol Last Admin: 08/14/18 12:49 Dose: 2 units Methylprednisolone (Solu-Medrol) 40 mg IV DAILY [facility] Last Admin: 08/14/18 09:41 Dose: 40 mg Moxifloxacin HCl (Avelox) 400 mg PO DAILY [facility]; Protocol Last Admin: 08/14/18 09:44 Dose: 400 mg Pantoprazole Sodium (Protonix Inj) 40 mg IVP DAILY [facility] Last Admin: 08/14/18 09:43 Dose: 40 mg Rosuvastatin Calcium (Crestor) 5 mg PO HS [facility] Last Admin: 08/13/18 21:09 Dose: 5 mg - Labs Labs: 08/14/18 08:36 08/14/18 08:36 - Constitutional Appears: Non-toxic, Chronically Ill - Head Exam Head Exam: NORMOCEPHALIC - Eye Exam Eye Exam: absent: Scleral icterus - ENT Exam ENT Exam: Mucous Membranes Dry - Neck Exam Neck Exam: absent: Lymphadenopathy - Respiratory Exam Respiratory Exam: Decreased Breath Sounds - Cardiovascular Exam Cardiovascular Exam: REGULAR RHYTHM - GI/Abdominal Exam GI & Abdominal Exam: Distended, Soft - Rectal Exam Rectal Exam: Deferred - Exam Exam: NORMAL INSPECTION - Extremities Exam Extremities Exam: absent: Pedal Edema - Back Exam Back Exam: absent: CVA tenderness (L), CVA tenderness (R) - Neurological Exam Neurological Exam: Alert, Awake, Oriented x3 - Psychiatric Exam Psychiatric exam: Depressed Assessment and Plan (1) Influenza Status: Acute (2) Pneumonia Status: Acute (3) Bronchiectasis Status: Acute (4) CKD (chronic kidney disease) Status: Acute - Assessment and Plan (Free Text) Assessment: cont rx pneumonia/ copd
--- NOTE | 2018-08-14 17:58 | CP.PCM.PN ---
Subjective - Date & Time of Evaluation Date of Evaluation: 08/14/18 Time of Evaluation: 16:40 - Subjective Subjective: Patient seen and examined Lying comfortably in no distress Status post hemodialysis yesterday Taper steroids Continue nebulizer treatment Switch to p.o. antibiotics Glycemic control Objective - Vital Signs/Intake and Output Vital Signs (last 24 hours): Temp Pulse Resp BP Pulse Ox 98.1 F 94 H 20 126/67 96 08/14/18 16:00 08/14/18 16:00 08/14/18 16:00 08/14/18 16:00 08/14/18 16:00 - Medications Medications: Current Medications Acetaminophen (Tylenol 325mg Tab) 650 mg PO Q6 PRN PRN Reason: Fever >100.4 F Last Admin: 08/10/18 00:20 Dose: 650 mg Acetylcysteine (Acetylcysteine 20%) 4 ml INH RQ4 [facility] Last Admin: 08/14/18 16:13 Dose: 4 ml Amlodipine Besylate (Norvasc) 5 mg PO DAILY [facility] Last Admin: 08/14/18 09:44 Dose: 5 mg Calcitriol (Rocaltrol) 0.25 mcg PO DAILY [facility] Last Admin: 08/14/18 09:43 Dose: 0.25 mcg Dextrose (Dextrose 50% Inj) 0 ml IV STAT PRN; Protocol PRN Reason: Hypoglycemia Protocol Dextrose (Glutose 15) 0 gm PO ONCE PRN; Protocol PRN Reason: Hypoglycemia Protocol Epoetin Justino (Procrit) 6,000 unit IV TTS [facility] Last Admin: 08/13/18 10:39 Dose: 6,000 unit Fluticasone/Vilanterol (Breo Ellipta 100-25 Mcg Inh) 1 puff INH RQD [facility] Last Admin: 08/14/18 11:11 Dose: 1 puff Folic Acid (Folic Acid) 1 mg PO DAILY [facility] Last Admin: 08/14/18 09:44 Dose: 1 mg Glucagon (Glucagen Diagnostic Kit) 0 mg IM STAT PRN; Protocol PRN Reason: Hypoglycemia Protocol Guaifenesin (Robitussin) 200 mg PO Q4H PRN PRN Reason: Cough and congestion Last Admin: 08/09/18 21:45 Dose: 200 mg Heparin Sodium (Porcine) (Heparin) 5,000 units SC Q8 [facility] Last Admin: 08/14/18 13:35 Dose: 5,000 units Insulin Human Regular (Novolin R) 0 unit SC ACHS [facility]; Protocol Last Admin: 08/14/18 12:49 Dose: 2 units Methylprednisolone (Solu-Medrol) 40 mg IV DAILY [facility] Last Admin: 08/14/18 09:41 Dose: 40 mg Moxifloxacin HCl (Avelox) 400 mg PO DAILY [facility]; Protocol Last Admin: 08/14/18 09:44 Dose: 400 mg Pantoprazole Sodium (Protonix Inj) 40 mg IVP DAILY [facility] Last Admin: 08/14/18 09:43 Dose: 40 mg Rosuvastatin Calcium (Crestor) 5 mg PO HS [facility] Last Admin: 08/13/18 21:09 Dose: 5 mg - Labs Labs: 08/14/18 08:36 08/14/18 08:36 Assessment and Plan (1) ILD (interstitial lung disease) Status: Acute (2) Influenza Status: Acute (3) ESRD (end stage renal disease) Status: Acute
--- NOTE | 2018-08-15 07:27 | CP.PCM.DIS ---
<Leroy Reed - Last Filed: 08/15/18 14:57> Provider - Provider Date of Admission: 08/09/18 10:45 Attending physician: Ivan Sharpe MD Consults: 08/09/18 10:48 Nephrology Consult Stat Comment: Consulting Provider: Greg Dutton Consulting Physician: Greg Dutton Reason for Consult: esrd requiring hd today 08/09/18 13:34 Infectious Disease Consult Routine Comment: Consulting Provider: Ted Boone Consulting Physician: Ted Boone Reason for Consult: recent pna, flu positive Pulmonology Consult Routine Comment: Consulting Provider: Geovani Post Consulting Physician: Geovani Post Reason for Consult: pulmonary fibrosis, copd, recent pna, flu pos Time Spent in preparation of Discharge (in minutes): 40 Hospital Course - Lab Results Lab Results: Micro Results 08/09/18 09:53 Blood Blood Culture - Final NO GROWTH AFTER 5 DAYS 08/09/18 09:53 Blood Gram Stain - Final TEST NOT PERFORMED 08/09/18 09:30 Blood Blood Culture - Final NO GROWTH AFTER 5 DAYS 08/09/18 09:30 Blood Gram Stain - Final TEST NOT PERFORMED 08/09/18 09:51 Urine,Clean Catch Urine Culture - Final No Growth (<1,000 CFU/ML) Most Recent Lab Values WBC 8.9 K/uL (4.8-10.8) 08/14/18 08:36 RBC 2.90 Mil/uL (4.40-5.90) L 08/14/18 08:36 Hgb 9.6 g/dL (12.0-18.0) L 08/14/18 08:36 Hct 29.1 % (35.0-51.0) L 08/14/18 08:36 MCV 100.3 fL (80.0-94.0) H 08/14/18 08:36 MCH 33.2 pg (27.0-31.0) H 08/14/18 08:36 MCHC 33.1 g/dL (33.0-37.0) 08/14/18 08:36 RDW 23.0 % (11.5-14.5) H 08/14/18 08:36 Plt Count 144 K/uL (130-400) 08/14/18 08:36 MPV 8.5 fL (7.2-11.7) 08/14/18 08:36 Neut % (Auto) 90.8 % (50.0-75.0) H 08/14/18 08:36 Lymph % (Auto) 4.9 % (20.0-40.0) L 08/14/18 08:36 [place] % (Auto) 3.6 % (0.0-10.0) 08/14/18 08:36 Eos % (Auto) 0.6 % (0.0-4.0) 08/14/18 08:36 Baso % (Auto) 0.1 % (0.0-2.0) 08/14/18 08:36 Neut # (Auto) 8.1 K/uL (1.8-7.0) H 08/14/18 08:36 Lymph # (Auto) 0.4 K/uL (1.0-4.3) L 08/14/18 08:36 [place] # (Auto) 0.3 K/uL (0.0-0.8) 08/14/18 08:36 Eos # (Auto) 0.0 K/uL (0.0-0.7) 08/14/18 08:36 Baso # (Auto) 0.0 K/uL (0.0-0.2) 08/14/18 08:36 Neutrophils % (Manual) 94 % (50-75) H 08/14/18 08:36 Band Neutrophils % 4 % (0-2) H 08/13/18 06:17 Lymphocytes % (Manual) 4 % (20-40) L 08/14/18 08:36 Monocytes % (Manual) 2 % (0-10) 08/14/18 08:36 Platelet Estimate Normal (NORMAL) 08/14/18 08:36 Large Platelets Present 08/14/18 08:36 Polychromasia Slight 08/14/18 08:36 Hypochromasia (manual) Slight 08/14/18 08:36 Poikilocytosis (manual Slight 08/14/18 08:36 Anisocytosis (manual) Marked 08/14/18 08:36 Microcytosis (manual) Slight 08/10/18 07:35 Macrocytosis (manual) Slight 08/14/18 08:36 Target Cells Slight 08/10/18 07:35 Tear Drop Cells Slight 08/14/18 08:36 Ovalocytes Slight 08/14/18 08:36 Schistocytes Slight 08/14/18 08:36 pO2 39 mm/Hg (30-55) 08/09/18 09:40 VBG pH 7.42 (7.32-7.43) 08/09/18 09:40 VBG pCO2 37 mmHg (40-60) L 08/09/18 09:40 VBG HCO3 24.2 mmol/L 08/09/18 09:40 VBG Total CO2 25.1 mmol/L (22-28) 08/09/18 09:40 VBG O2 Sat (Calc) 79.1 % (40-65) H 08/09/18 09:40 VBG Base Excess -0.2 mmol/L (0.0-2.0) L 08/09/18 09:40 VBG Potassium 5.2 mmol/L (3.6-5.2) 08/09/18 09:40 Sodium 142.0 mmol/l (132-148) 08/09/18 09:40 Chloride 112.0 mmol/L (98-107) H 08/09/18 09:40 Glucose 129 mg/dl (75-110) H 08/09/18 09:40 Lactate 1.2 mmol/L (0.7-2.1) 08/09/18 09:40 Sodium 133 mmol/L (132-148) 08/14/18 08:36 Potassium 4.3 mmol/L (3.6-5.2) 08/14/18 08:36 Chloride 99 mmol/L (98-107) 08/14/18 08:36 Carbon Dioxide 28 mmol/L (22-30) 08/14/18 08:36 Anion Gap 10 (10-20) 08/14/18 08:36 BUN 44 mg/dL (9-20) H 08/14/18 08:36 Creatinine 2.4 mg/dL (0.8-1.5) H 08/14/18 08:36 Est GFR ( Amer) 32 08/14/18 08:36 Est GFR (Non-Af Amer) 26 08/14/18 08:36 POC Glucose (mg/dL) 310 mg/dL (65-110) H 08/15/18 06:13 Random Glucose 147 mg/dL (75-110) H D 08/14/18 08:36 Calcium 7.9 mg/dl (8.6-10.4) L 08/14/18 08:36 Phosphorus 2.6 mg/dL (2.5-4.5) 08/14/18 08:36 Magnesium 1.4 mg/dL (1.6-2.3) L 08/14/18 08:36 Total Bilirubin 0.6 mg/dL (0.2-1.3) 08/14/18 08:36 AST 32 U/L (17-59) 08/14/18 08:36 ALT 49 U/L (21-72) 08/14/18 08:36 Alkaline Phosphatase 87 U/L (38-126) 08/14/18 08:36 Total Protein 5.1 g/dL (6.3-8.3) L 08/14/18 08:36 Albumin 2.7 g/dL (3.5-5.0) L 08/14/18 08:36 Globulin 2.4 gm/dL (2.2-3.9) 08/14/18 08:36 Albumin/Globulin Ratio 1.1 (1.0-2.1) 08/14/18 08:36 Venous Blood Potassium 5.2 mmol/L (3.6-5.2) 08/09/18 09:40 Urine Color Yellow (YELLOW) 08/09/18 09:51 Urine Clarity Hazy (Clear) 08/09/18 09:51 Urine pH 6.5 (5.0-8.0) 08/09/18 09:51 Ur Specific Pender 1.025 (1.003-1.030) 08/09/18 09:51 Urine Protein > 300 mg/dL (NEGATIVE) 08/09/18 09:51 Urine Glucose (UA) 100 mg/dL (Normal) 08/09/18 09:51 Urine Ketones Negative mg/dL (NEGATIVE) 08/09/18 09:51 Urine Blood Moderate (NEGATIVE) 08/09/18 09:51 Urine Nitrate Negative (NEGATIVE) 08/09/18 09:51 Urine Bilirubin Negative (NEGATIVE) 08/09/18 09:51 Urine Urobilinogen 0.2 mg/dL (0.2-1.0) 08/09/18 09:51 Ur Leukocyte Esterase Negative Charmaine/uL (Negative) 08/09/18 09:51 Urine WBC (Auto) 2 /hpf (0-5) 08/09/18 09:51 Urine RBC (Auto) 3 /hpf (0-3) 08/09/18 09:51 Ur Squamous Epith Cells 5 /hpf (0-5) 08/09/18 09:51 Urine Bacteria Rare (<OCC) 08/09/18 09:51 Random Vancomycin 9.4 ug/mL 08/10/18 07:35 Influenza Typ A,B (EIA) Pos for influenza a (NEGATIVE) H 08/09/18 09:45 - Hospital Course Hospital Course: HPI: Patient is an 82 year old male with past medical history of HTN, HLD, DM, ESRD on HD TTS, COPD, and chronic anemia presenting to ED after missed HD session earlier this morning. Per patient, he was told to receive dialysis as outpatient care, went to the center today, and they did not have any information on him. He was reported fever and persistent dry cough for the past several days and was instructed to come to the ED. He endorses fevers, shortness of breath, persistent dry cough, generalized weakness and fatigue. He denies any chills, chest pain, palpitations, abdominal pain, nausea/vomiting/diarrhea/constipation, dysuria, or changes in stool. Of note, patient was recently discharged (08/06) and diagnosed with pneumonia with pseudomonal growth in sputum (07/29). During course of admission: Patient was found to be flu positive and placed on isolation precautions. Tamiflu was renally dosed and given for a total of 5 days. Chest Xray revealed interval worsening right basal infiltrate with or without subsegmental discoid- like atelectasis. Mild interval increased pulmonary venous congestion. Patient was placed on renal dosage vancomycin and cefepime and subsequently switched over to PO Avelox. Infectious Disease (Dr. Boone) was consulted and recommendations were appreciated. Pulmonology (Dr. Post) was consulted for history of COPD with extensive ILD. Patient was placed on duonebulizer treatment with soludmedrol, breo ellipta, and mucomyst. Nephrology (Dr. Dutton) was consulted for end stage renal disease and patient underwent hemodialysis sessions during hospital course. Patient remained afebrile during hospital course, with no leukocytosis or positive culture growth. Patient is stable for discharge to home, as per Dr. Bosch. Patient is instructed to continue all home medications as currently prescribed. Patient is also instructed to continue Avelox antibiotics for 2 more days as currently prescribed and a 5 day course of steroids as prescribed. With regards to the patient's history of COPD/Pulmonary fibrosis, he has been on IV solumedrol, albuterol and has been stable. His SpO2s on room air have been documented on in room air 97 to 99%. Nevertheless he should take prednisone PO as well as resume his home medications for his breathing including the Breo/Ellipta and albuterol. With regards to his DM his sugars have been elevated in part from the IV solumedrol. Patient will follow up for outpatient dialysis treatment at [facility] on [facility] (Tuesdays, , Saturdays). Next dialysis session is set for tomorrow, 08/16. Home services are provided from [facility]. Please follow up with Pulmonology (Dr. Post) within 3-5 days of discharge for further monitoring and care. Please follow up with your [facility] Refin[facility] (Dr. Dutton) within 1 week of discharge for continued care. The following is a summary of hospital course. For further detail, please refer to EMR. - Date & Time of H&P Date of H&P: 08/15/18 Time of H&P: 14:58 Discharge Exam - Head Exam Head Exam: ATRAUMATIC, NORMAL INSPECTION, NORMOCEPHALIC - Eye Exam Eye Exam: EOMI, Normal appearance Pupil Exam: NORMAL ACCOMODATION - ENT Exam ENT Exam: Mucous Membranes Moist, Normal Exam - Neck Exam Neck exam: Full Rom, Normal Inspection - Respiratory Exam Respiratory Exam: Decreased Breath Sounds, Rhonchi, UNREMARKABLE. absent: Accessory Muscle Use, Rales, Wheezes, Respiratory Distress, Stridor - Cardiovascular Exam Cardiovascular Exam: REGULAR RHYTHM, +S1, +S2 - GI/Abdominal Exam GI & Abdominal Exam: Normal Bowel Sounds, Soft, Unremarkable Additional comments: peritoneal cath dressing c/d/i - Extremities Exam Extremities exam: normal capillary refill, normal inspection, pedal pulses present - Back Exam Back exam: NORMAL INSPECTION - Neurological Exam Neurological exam: Alert, CN II-XII Intact, Normal Gait, Oriented x3 - Psychiatric Exam Psychiatric exam: Normal Affect, Normal Mood - Skin Skin Exam: Dry, Intact, Normal Color, Warm Discharge Plan - Discharge Medications Prescriptions: Moxifloxacin [Avelox] 400 mg PO DAILY #2 tab predniSONE [predniSONE Tab] 10 mg PO DAILY #5 tab - Follow Up Plan Condition: FAIR Disposition: HOME/ ROUTINE Instructions: Dialysis Diet , Flu, Adult (DC), Moxifloxacin (Systemic), Pneumonia, Adult (DC), Prednisone, End Stage Kidney Disease (DC) Additional Instructions: Patient is stable for discharge to home, as per Dr. Bosch. Patient is instructed to continue all home medications as currently prescribed. Patient is also instructed to continue Avelox antibiotics for 2 more days as currently prescribed and a 5 day course of steroids as prescribed. With regards to the patient's history of COPD/Pulmonary fibrosis, he has been on IV solumedrol, albuterol and has been stable. His SpO2s on room air have been documented on in room air 97 to 99%. Nevertheless he should take prednisone PO as well as resume his home medications for his breathing including the Breo/Ellipta and albuterol. With regards to his DM his sugars have been elevated in part from the IV solumedrol. Patient will follow up for outpatient dialysis treatment at [facility] on [facility] (Tuesdays, , Saturdays). Next dialysis session is set for tomorrow, 08/16. Home services are provided from [facility]. Please follow up with Pulmonology (Dr. Post) within 3-5 days of discharge for further monitoring and care. Please follow up with your Car [facility]in[facility] (Dr. Dutton) within 1 week of discharge for continued care. El paciente se encuentra estable para el lacey hospitalaria, segn el Dr. Bosch. Se instruye al paciente para que contine con todos los medicamentos caseros segn lo prescrito actualmente. Tambin se le indica al paciente que contine los antibiticos de Avelox lucio 2 scott ms segn lo prescrito actualmente y un curso de 5 scott de esteroides segn lo prescrito. Con respecto a la historia del paciente de EPOC / fibrosis pulmonar, kothari recibido solumedrol por va intravenosa, albuterol y se kothari mantenido estable. Meng SpO2 en el aire de la habitacin se sanchez documentado en aire de la damián del 97 al 99%. Sin embargo, debe marlyn prednisona PO y reanudar meng medicamentos caseros para la respiracin, incluyendo Breo / Ellipta y albuterol. Con respecto a garcia DM, meng azcares se sanchez elevado en parte del solumedrol IV. El paciente jozef seguimiento al tratamiento ambulatorio de dilisis en el [facility] en [address] (los billy, jueves y sbados). La prxima sesin de dilisis est programada para , 08/16. Los servicios a domicilio son proporcionados por [facility]. Por favor, rodger un seguimiento con Pulmonology (Dr. Post) dentro de los 3-5 scott posteriores al lacey para un seguimiento y cuidado adicionales. Por favor, rodger un seguimiento con garcia nefrlogo (Dr. Dutton) dentro de la primera semana despus del lacey para recibir atencin continua. Referrals: Geovani Post MD [Staff Provider] - Greg Dutton MD [Staff Provider] - <Anderson Bosch H - Last Filed: 08/15/18 18:13> Provider - Provider Date of Admission: 08/09/18 10:45 Attending physician: Ivan Sharpe MD Consults: 08/09/18 10:48 Nephrology Consult Stat Comment: Consulting Provider: Greg Dutton Consulting Physician: Greg Dutton Reason for Consult: esrd requiring hd today 08/09/18 13:34 Infectious Disease Consult Routine Comment: Consulting Provider: Ted Boone Consulting Physician: Ted Boone Reason for Consult: recent pna, flu positive Pulmonology Consult Routine Comment: Consulting Provider: Geovani Post Consulting Physician: Geovani Post Reason for Consult: pulmonary fibrosis, copd, recent pna, flu pos Hospital Course - Lab Results Lab Results: Micro Results 08/09/18 09:53 Blood Blood Culture - Final NO GROWTH AFTER 5 DAYS 08/09/18 09:53 Blood Gram Stain - Final TEST NOT PERFORMED 08/09/18 09:30 Blood Blood Culture - Final NO GROWTH AFTER 5 DAYS 08/09/18 09:30 Blood Gram Stain - Final TEST NOT PERFORMED 08/09/18 09:51 Urine,Clean Catch Urine Culture - Final No Growth (<1,000 CFU/ML) Most Recent Lab Values WBC 7.7 K/uL (4.8-10.8) 08/15/18 07:27 RBC 2.83 Mil/uL (4.40-5.90) L 08/15/18 07:27 Hgb 9.3 g/dL (12.0-18.0) L 08/15/18 07:27 Hct 28.6 % (35.0-51.0) L 08/15/18 07:27 MCV 101.1 fL (80.0-94.0) H 08/15/18 07:27 MCH 32.7 pg (27.0-31.0) H 08/15/18 07:27 MCHC 32.4 g/dL (33.0-37.0) L 08/15/18 07:27 RDW 22.9 % (11.5-14.5) H 08/15/18 07:27 Plt Count 157 K/uL (130-400) 08/15/18 07:27 MPV 8.7 fL (7.2-11.7) 08/15/18 07:27 Neut % (Auto) 88.6 % (50.0-75.0) H 08/15/18 07:27 Lymph % (Auto) 6.7 % (20.0-40.0) L 08/15/18 07:27 [place] % (Auto) 3.7 % (0.0-10.0) 08/15/18 07:27 Eos % (Auto) 0.8 % (0.0-4.0) 08/15/18 07:27 Baso % (Auto) 0.2 % (0.0-2.0) 08/15/18 07:27 Neut # (Auto) 6.8 K/uL (1.8-7.0) 08/15/18 07:27 Lymph # (Auto) 0.5 K/uL (1.0-4.3) L 08/15/18 07:27 [place] # (Auto) 0.3 K/uL (0.0-0.8) 08/15/18 07:27 Eos # (Auto) 0.1 K/uL (0.0-0.7) 08/15/18 07:27 Baso # (Auto) 0.0 K/uL (0.0-0.2) 08/15/18 07:27 Neutrophils % (Manual) 89 % (50-75) H 08/15/18 07:27 Band Neutrophils % 4 % (0-2) H 08/13/18 06:17 Lymphocytes % (Manual) 6 % (20-40) L 08/15/18 07:27 Monocytes % (Manual) 3 % (0-10) 08/15/18 07:27 Eosinophils % (Manual) 2 % (0-4) 08/15/18 07:27 Platelet Estimate Normal (NORMAL) 08/15/18 07:27 Large Platelets Present 08/14/18 08:36 Polychromasia Slight 08/14/18 08:36 Hypochromasia (manual) Slight 08/15/18 07:27 Poikilocytosis (manual Slight 08/15/18 07:27 Anisocytosis (manual) Slight 08/15/18 07:27 Microcytosis (manual) Slight 08/10/18 07:35 Macrocytosis (manual) Slight 08/15/18 07:27 Target Cells Slight 08/10/18 07:35 Tear Drop Cells Slight 08/14/18 08:36 Ovalocytes Slight 08/15/18 07:27 Schistocytes Slight 08/14/18 08:36 pO2 39 mm/Hg (30-55) 08/09/18 09:40 VBG pH 7.42 (7.32-7.43) 08/09/18 09:40 VBG pCO2 37 mmHg (40-60) L 08/09/18 09:40 VBG HCO3 24.2 mmol/L 08/09/18 09:40 VBG Total CO2 25.1 mmol/L (22-28) 08/09/18 09:40 VBG O2 Sat (Calc) 79.1 % (40-65) H 08/09/18 09:40 VBG Base Excess -0.2 mmol/L (0.0-2.0) L 08/09/18 09:40 VBG Potassium 5.2 mmol/L (3.6-5.2) 08/09/18 09:40 Sodium 142.0 mmol/l (132-148) 08/09/18 09:40 Chloride 112.0 mmol/L (98-107) H 08/09/18 09:40 Glucose 129 mg/dl (75-110) H 08/09/18 09:40 Lactate 1.2 mmol/L (0.7-2.1) 08/09/18 09:40 Sodium 132 mmol/L (132-148) 08/15/18 07:27 Potassium 4.4 mmol/L (3.6-5.2) 08/15/18 07:27 Chloride 100 mmol/L (98-107) 08/15/18 07:27 Carbon Dioxide 22 mmol/L (22-30) 08/15/18 07:27 Anion Gap 14 (10-20) 08/15/18 07:27 BUN 65 mg/dL (9-20) H 08/15/18 07:27 Creatinine 3.7 mg/dL (0.8-1.5) H 08/15/18 07:27 Est GFR ( Amer) 19 08/15/18 07:27 Est GFR (Non-Af Amer) 16 08/15/18 07:27 POC Glucose (mg/dL) 310 mg/dL (65-110) H 08/15/18 06:13 Random Glucose 258 mg/dL (75-110) H D 08/15/18 07:27 Calcium 8.0 mg/dl (8.6-10.4) L 08/15/18 07:27 Phosphorus 3.3 mg/dL (2.5-4.5) 08/15/18 07:27 Magnesium 1.4 mg/dL (1.6-2.3) L 08/15/18 07:27 Total Bilirubin 0.4 mg/dL (0.2-1.3) 08/15/18 07:27 AST 22 U/L (17-59) 08/15/18 07:27 ALT 43 U/L (21-72) 08/15/18 07:27 Alkaline Phosphatase 111 U/L (38-126) 08/15/18 07:27 Total Protein 5.1 g/dL (6.3-8.3) L 08/15/18 07:27 Albumin 2.8 g/dL (3.5-5.0) L 08/15/18 07:27 Globulin 2.4 gm/dL (2.2-3.9) 08/15/18 07:27 Albumin/Globulin Ratio 1.2 (1.0-2.1) 08/15/18 07:27 Venous Blood Potassium 5.2 mmol/L (3.6-5.2) 08/09/18 09:40 Urine Color Yellow (YELLOW) 08/09/18 09:51 Urine Clarity Hazy (Clear) 08/09/18 09:51 Urine pH 6.5 (5.0-8.0) 08/09/18 09:51 Ur Specific Pender 1.025 (1.003-1.030) 08/09/18 09:51 Urine Protein > 300 mg/dL (NEGATIVE) 08/09/18 09:51 Urine Glucose (UA) 100 mg/dL (Normal) 08/09/18 09:51 Urine Ketones Negative mg/dL (NEGATIVE) 08/09/18 09:51 Urine Blood Moderate (NEGATIVE) 08/09/18 09:51 Urine Nitrate Negative (NEGATIVE) 08/09/18 09:51 Urine Bilirubin Negative (NEGATIVE) 08/09/18 09:51 Urine Urobilinogen 0.2 mg/dL (0.2-1.0) 08/09/18 09:51 Ur Leukocyte Esterase Negative Charmaine/uL (Negative) 08/09/18 09:51 Urine WBC (Auto) 2 /hpf (0-5) 08/09/18 09:51 Urine RBC (Auto) 3 /hpf (0-3) 08/09/18 09:51 Ur Squamous Epith Cells 5 /hpf (0-5) 08/09/18 09:51 Urine Bacteria Rare (<OCC) 08/09/18 09:51 Random Vancomycin 9.4 ug/mL 08/10/18 07:35 Influenza Typ A,B (EIA) Pos for influenza a (NEGATIVE) H 08/09/18 09:45 Attending/Attestation - Attestation I have personally seen and examined this patient.: Yes I have fully participated in the care of the patient.: Yes I have reviewed all pertinent clinical information, including history, physical exam and plan: Yes Notes (Text): 08/15/18 18:11 Medical attending: Patient was seen and examined by me. Reviewed the above note by the resident and agree with the above Yesterday we tried to discharge the patient however there were so many unanswered questions we were not able to discharge. As mentioned previously the patient has a spot at [facility] on [address] for TTS HD Per my discussion with family member Else over the phone, the family has private transportation to get to and from home to the HD center/ He will continue to have HD via the permacath until his abdominal peritoneal catheter is ready to be used Anderson Bosch
[2018-08-15 07:45] LABS: BASO % 0.2 % (0.0-2.0); EOS # 0.1 K/uL (0.0-0.7); EOS % 0.8 % (0.0-4.0); HEMOGLOBIN 9.3 g/dL (12.0-18.0); LYMPH # 0.5 K/uL (1.0-4.3); LYMPH % 6.7 % (20.0-40.0); MEAN CELL VOLUME 101.1 fL (80.0-94.0); MEAN CORPUSCULAR HEMOGLOBIN 32.7 pg (27.0-31.0); MEAN CORPUSCULAR HGB CONC 32.4 g/dL (33.0-37.0); MEAN PLATELET VOLUME 8.7 fL (7.2-11.7); MONO # 0.3 K/uL (0.0-0.8); MONO % 3.7 % (0.0-10.0); NEUT # 6.8 K/uL (1.8-7.0); NEUT % 88.6 % (50.0-75.0); PLATELET COUNT 157 K/uL (130-400); RBC 2.83 Mil/uL (4.40-5.90); RED CELL DISTRIBUTION WIDTH 22.9 % (11.5-14.5); WHITE BLOOD COUNT 7.7 K/uL (4.8-10.8)
[2018-08-15] MEDS: (Novolin R) Insulin Human Regular 100 units/ml vial SC SCH ×2 (07:55→11:49)
[2018-08-15 08:10] LABS: ALB/GLOB RATIO 1.2 (1.0-2.1); ALBUMIN 2.8 g/dL (3.5-5.0)
[2018-08-15] MEDS: Fluticasone-Vilanterol 100/25mcg Diskus INH SCH (08:10)
[2018-08-15 08:41] VITALS: BP 150/80; PULSE 91; RESP 18; TEMP 98; O2SAT 96
[2018-08-15 08:42] LABS: EOSINOPHIL 2 % (0-4); LYMPHOCYTE 6 % (20-40); MONOCYTE 3 % (0-10); TOTAL CELLS COUNTED 100
[2018-08-15 08:43] LABS: ANISOCYTOSIS SLIGHT; HYPOCHROMIC SLIGHT; NEUTROPHIL 89 % (50-75); OVALOCYTES SLIGHT; PLATELET ESTIMATE NORMAL (NORMAL); POIKILOCYTOSIS SLIGHT
[2018-08-15] MEDS: Acetylcysteine 20% Inhal Soln (4ml) INH SCH ×2 (10:10)
--- NOTE | 2018-08-15 10:15 | CP.PCM.PN ---
Subjective - Date & Time of Evaluation Date of Evaluation: 08/15/18 Time of Evaluation: 10:13 - Subjective Subjective: pt seen and examined comfortablein bed says feels better no SOB, less cough afebrile ROS- as per HPI, other than that 10 point ROS negative Objective - Vital Signs/Intake and Output Vital Signs (last 24 hours): Temp Pulse Resp BP Pulse Ox 98 F 91 H 18 150/80 96 08/15/18 08:00 08/15/18 08:00 08/15/18 08:00 08/15/18 08:00 08/15/18 08:00 - Medications Medications: Current Medications Acetaminophen (Tylenol 325mg Tab) 650 mg PO Q6 PRN PRN Reason: Fever >100.4 F Last Admin: 08/10/18 00:20 Dose: 650 mg Acetylcysteine (Acetylcysteine 20%) 4 ml INH RQ4 ON LICENSE OF [facility] Last Admin: 08/15/18 10:10 Dose: Not Given Amlodipine Besylate (Norvasc) 5 mg PO DAILY ON LICENSE OF [facility] Last Admin: 08/15/18 09:24 Dose: 5 mg Calcitriol (Rocaltrol) 0.25 mcg PO DAILY ON LICENSE OF [facility] Last Admin: 08/15/18 09:24 Dose: 0.25 mcg Dextrose (Dextrose 50% Inj) 0 ml IV STAT PRN; Protocol PRN Reason: Hypoglycemia Protocol Dextrose (Glutose 15) 0 gm PO ONCE PRN; Protocol PRN Reason: Hypoglycemia Protocol Epoetin Justino (Procrit) 6,000 unit IV TTS ON LICENSE OF [facility] Last Admin: 08/13/18 10:39 Dose: 6,000 unit Fluticasone/Vilanterol (Breo Ellipta 100-25 Mcg Inh) 1 puff INH RQD ON LICENSE OF [facility] Last Admin: 08/15/18 08:10 Dose: 1 puff Folic Acid (Folic Acid) 1 mg PO DAILY ON LICENSE OF [facility] Last Admin: 08/15/18 09:24 Dose: 1 mg Glucagon (Glucagen Diagnostic Kit) 0 mg IM STAT PRN; Protocol PRN Reason: Hypoglycemia Protocol Guaifenesin (Robitussin) 200 mg PO Q4H PRN PRN Reason: Cough and congestion Last Admin: 08/09/18 21:45 Dose: 200 mg Heparin Sodium (Porcine) (Heparin) 5,000 units SC Q8 ON LICENSE OF [facility] Last Admin: 08/15/18 05:25 Dose: 5,000 units Insulin Human Regular (Novolin R) 0 unit SC ACHS ON LICENSE OF [facility]; Protocol Last Admin: 08/15/18 07:55 Dose: 8 units Moxifloxacin HCl (Avelox) 400 mg PO DAILY ON LICENSE OF [facility]; Protocol Last Admin: 08/15/18 09:24 Dose: 400 mg Pantoprazole Sodium (Protonix Inj) 40 mg IVP DAILY ON LICENSE OF [facility] Last Admin: 08/15/18 09:24 Dose: 40 mg Prednisone (Prednisone Tab) 20 mg PO DAILY ON LICENSE OF [facility] Last Admin: 08/15/18 09:24 Dose: 20 mg Rosuvastatin Calcium (Crestor) 5 mg PO HS ON LICENSE OF [facility] Last Admin: 08/14/18 21:04 Dose: 5 mg - Labs Labs: 08/15/18 07:27 08/15/18 07:27 - Constitutional Appears: Non-toxic, No Acute Distress - Head Exam Head Exam: ATRAUMATIC, NORMOCEPHALIC - Eye Exam Eye Exam: EOMI, PERRL - ENT Exam ENT Exam: Mucous Membranes Moist - Neck Exam Neck Exam: Full ROM - Respiratory Exam Respiratory Exam: Rales. absent: Rhonchi, Wheezes Additional comments: bibasilar rales - Cardiovascular Exam Cardiovascular Exam: REGULAR RHYTHM, +S1, +S2 - GI/Abdominal Exam GI & Abdominal Exam: Soft. absent: Distended, Tenderness Additional comments: PD catheter in place - Extremities Exam Extremities Exam: Full ROM. absent: Pedal Edema - Neurological Exam Neurological Exam: Alert, Awake, Oriented x3 - Psychiatric Exam Psychiatric exam: Normal Affect, Normal Mood - Skin Skin Exam: Normal Color, Warm Assessment and Plan (1) Influenza Status: Acute (2) Pneumonia Status: Acute (3) Bronchiectasis Status: Acute (4) ESRD (end stage renal disease) Status: Acute (5) ILD (interstitial lung disease) Status: Acute (6) Pulmonary fibrosis Status: Acute - Assessment and Plan (Free Text) Plan: Maintain HD TTS, next HD tomorrow BP stable clincially improving change dressing over PD catheter site stable renal peguero to go to [facility] for outpt HD
== END 2018-08-15 16:04 | disposition home or self-care (01) | DRG 193 ==
LOC: C.ER 08:47 → C.9E 10:45 → C.6T 13:05
PROVIDERS: ADMIT Internal Medicine; ATTEND Internal Medicine
DX: J10.00 Influenza due to other identified influenza virus with unspecified type of pneumonia (principal); N18.6 End stage renal disease; I12.0 Hypertensive chronic kidney disease with stage 5 chronic kidney disease or end stage renal disease; J47.0 Bronchiectasis with acute lower respiratory infection; Z87.891 Personal history of nicotine dependence; E11.22 Type 2 diabetes mellitus with diabetic chronic kidney disease; E87.70 Fluid overload, unspecified; J84.10 Pulmonary fibrosis, unspecified; Z87.01 Personal history of pneumonia (recurrent); Z99.2 Dependence on renal dialysis; B96.5 Pseudomonas (aeruginosa) (mallei) (pseudomallei) as the cause of diseases classified elsewhere; E78.5 Hyperlipidemia, unspecified; E11.65 Type 2 diabetes mellitus with hyperglycemia; D63.1 Anemia in chronic kidney disease

== ENCOUNTER 2018-08-24 13:28 | Inpatient (IN) | payer MEDICARE ==
[2018-08-24 13:33] VITALS: BMI 17.4
[2018-08-24 14:41] LABS: BASO # 0.1 K/uL (0.0-0.2); BASO % 0.8 % (0.0-2.0); EOS # 0.1 K/uL (0.0-0.7); EOS % 0.8 % (0.0-4.0); HEMOGLOBIN 7.5 g/dL (12.0-18.0); LYMPH # 0.4 K/uL (1.0-4.3); LYMPH % 4.8 % (20.0-40.0); MEAN CELL VOLUME 99.6 fL (80.0-94.0); MEAN CORPUSCULAR HEMOGLOBIN 33.6 pg (27.0-31.0); MEAN CORPUSCULAR HGB CONC 33.7 g/dL (33.0-37.0); MEAN PLATELET VOLUME 8.3 fL (7.2-11.7); MONO # 0.9 K/uL (0.0-0.8); MONO % 11.5 % (0.0-10.0); NEUT # 6.7 K/uL (1.8-7.0); NEUT % 82.1 % (50.0-75.0); PLATELET COUNT 221 K/uL (130-400); RBC 2.23 Mil/uL (4.40-5.90); WHITE BLOOD COUNT 8.1 K/uL (4.8-10.8)
--- NOTE | 2018-08-24 14:46 | C.PDOC ---
History Of Present Illness 82 y/o male,w/PMhx of pulmonary fibrosis and ESRD, presents to ER complaining of blood in urine and stool which has been present for the past 1 week. Patient states that he has several episodes of diarrhea daily with blood in stool. Patient reports that he has some cramping abdominal pain prior to the episodes of diarrhea. He notes that he recently had peritoneal dialysis catheter placed and he has some abdominal discomfort secondary to the catheter. He has mild dizziness and he has chronic shortness of breath which is unchanged. Currently, patient denies having fever,chills,CP, nausea, and vomiting. Of note, patient is currently undergoing hemodialysis and his last appointment was yesterday. Time Seen by Provider: 08/24/18 13:43 Chief Complaint (Nursing): Male Genitourinary History Per: Patient History/Exam Limitations: no limitations Onset/Duration Of Symptoms: Days Current Symptoms Are (Timing): Still Present Severity: Moderate Past Medical History Reviewed: Historical Data, Nursing Documentation, Vital Signs Vital Signs: Last Vital Signs Temp 98.6 F 08/24/18 13:32 Pulse 111 H 08/24/18 13:32 Resp 20 08/24/18 13:32 BP 149/63 08/24/18 13:32 Pulse Ox 96 08/24/18 13:32 - Medical History PMH: Arthritis, Bronchitis, COPD, HTN, Hyperlipidemia, Pneumonia, End Stage Renal Disease, Chronic Kidney Disease Other Surgeries: Hx of surgeries - [facility] Procedures (07/25/18) EXCISION OF PELVIC SUBCU/FASCIA, OPEN APPROACH (09/06/17) FLUOROSCOPY OF SUP VENA CAVA USING L OSM CONTRAST, GUIDANCE (07/25/18) INSERT OF INFUSION DEV INTO PERITON CAV, PERC ENDO APPROACH (07/25/18) INSERTION OF INFUSION DEV INTO SUP VENA CAVA, PERC APPROACH (07/25/18) IRRIGATION OF PERITON CAV USING DIALYSATE, PERC APPROACH (07/25/18) SUPPLEMENT L INGUINAL REGION WITH SYNTH SUB, OPEN APPROACH (09/06/17) Family History: States: No Known Family Hx - Social History Hx Alcohol Use: No Hx Substance Use: No - Immunization History Hx Tetanus Toxoid Vaccination: No Hx Influenza Vaccination: Yes Hx Pneumococcal Vaccination: Yes Review Of Systems Constitutional: Negative for: Fever, Chills Cardiovascular: Negative for: Chest Pain Respiratory: Positive for: Shortness of Breath. Negative for: Cough Gastrointestinal: Positive for: Abdominal Pain, Diarrhea, Other (blood in urine and stool). Negative for: Nausea, Vomiting Physical Exam - Physical Exam Appears: No Acute Distress Skin: Warm, Dry, Pale (mildly pale) Head: Atraumatic, Normacephalic Eye(s): bilateral: Normal Inspection Nose: Normal Oral Mucosa: Moist Neck: Supple Chest: Symmetrical Cardiovascular: Rhythm Regular (with tachycardia) Respiratory: No Rhonchi, No Wheezing, Other (coarse crackles) Gastrointestinal/Abdominal: Soft, Tenderness (mild RUQ tenderness), No Guarding, No Rebound Rectal: Normal Exam, Rectal Tone, Heme Negative, No Maroon Stool, No Melena, No Blood Streaked Stool Neurological/Psych: Oriented x3, Normal Speech ED Course And Treatment - Laboratory Results Result Diagrams: 08/24/18 21:04 08/24/18 14:32 Lab Interpretation: Abnormal (Hgb 7.5 (9.3 last week), BUN 50, Cr 2.7 (unchanged), bili 3.7 (0.4 last week), AST 235 (22 last week) Stool quaiac negative) O2 Sat by Pulse Oximetry: 96 (RA) Pulse Ox Interpretation: Normal - Physician Consult Information Time Consulting Physician Contacted: 15:48 Physician Contacted: Sabino Dias Outcome Of Conversation: Patient to be admitted to [facility] for GI bleeding with acute anemia and elevated LFTs Medical Decision Making Medical Decision Making: Plan: --Labs --UA --Urine Culture Disposition - Disposition Disposition: HOSPITALIZED Disposition Time: 15:49 Condition: FAIR - POA Present On Arrival: None - Clinical Impression Clinical Impression: Gastrointestinal hemorrhage, Pulmonary fibrosis, ESRD on dialysis, Anemia - Scribe Statement The provider has reviewed the documentation as recorded by the Shannan Hendrickson Provider Attestation: All medical [facility] entries [facility] by the [facility] were at my direction and personally dictated by me. I have reviewed the chart and agree that the record accurately reflects my personal performance of the history, physical exam, medical decision making, and the department course for this patient. I have also personally directed, reviewed, and agree with the discharge instructions and disposition.
[2018-08-24 14:51] LABS: PROTHROMBIN TIME 10.7 SECONDS (9.7-12.2)
[2018-08-24 14:58] LABS: SQUAMOUS EPITHIAL 2 /hpf (0-5); URINE BACTERIA OCC (<OCC); URINE BILIRUBIN NEGATIVE (NEGATIVE); URINE BLOOD 3+ (NEGATIVE); URINE CLARITY Clear (Clear); URINE COLOR Red (YELLOW); URINE GLUCOSE (UA) 2+ mg/dL (Normal); URINE LEUKOCYTE ESTERASE NEG Leu/uL (Negative); URINE PROTEIN 2+ mg/dL (NEGATIVE); URINE UROBILINOGEN NORMAL mg/dL (0.2-1.0)
[2018-08-24 15:05] LABS: ALB/GLOB RATIO 1.2 (1.0-2.1); ALBUMIN 3.5 g/dL (3.5-5.0); CALCIUM 8.6 mg/dl (8.6-10.4)
[2018-08-24 15:08] LABS: BANDS 3 % (0-2); LYMPHOCYTE 9 % (20-40); MONOCYTE 7 % (0-10); NEUTROPHIL 81 % (50-75); TOTAL CELLS COUNTED 100
[2018-08-24 15:09] LABS: ANISOCYTOSIS SLIGHT; HYPOCHROMIC SLIGHT; PLATELET ESTIMATE NORMAL (NORMAL)
[2018-08-24 15:10] LABS: POLYCHROMIC SLIGHT
[2018-08-24] MEDS ORDERED: Albuterol-Ipratrop 3 mg / 0.5 (3 ml) UD INH PRN (17:09)
[2018-08-24] MEDS ORDERED: Glucagon Recombinant 1 mg Inj IM PRN (17:11)
[2018-08-24] MEDS ORDERED: Dextrose 50% SYRINGE Inj (50 ml) IV PRN (17:11)
--- NOTE | 2018-08-24 17:13 | CP.PCM.HP ---
<Leroy Reed - Last Filed: 08/24/18 17:28> History of Present Illness - History of Present Illness History of Present Illness: PGY-[address] Dias Patient is an 82 year old male with past medical history of HTN, HLD, DM, ESRD on HD TTS, COPD, and chronic anemia presenting to ED for gross hematuria and black watery stools for the past 2 weeks. Patient states he has had several episodes of diarrhea daily, approximately every 2 hours. Nothing makes it better. He denies decreased appetite or worsening of diarrhea with food intake, stating it is constant ~ every 2 hours regardless. Hematuria has been present for approximately 2 weeks as well. Of note, urine by bedside appeared grossly bloody. He states he thought it would have resolved on its own, which is why he did not come sooner. He endorses associated abdominal cramping/pain on days he receives HD (TTS), but denies any current abdominal pain. His last HD session was yesterday. No fevers/chills, headaches, chest pain, palpitations, acute sob, vomiting, diarrhea, dysuria, or increased urinary frequency. 12 pt ROS reviewed and otherwise negative. PMHx: HTN, HLD, DM, ESRD on HD (TTS), COPD, anemia PSHx: R inguinal hernia repair x2 Allergies: ASA--"stomach hurts" Social Hx: +former smoker, quit at age 42, 1-2ppd. No alcohol or illicit drug use Family Hx: noncontributory PMD: Dr. Miranda Pulmonary: Dr. Chevy Cruz Nephro: Dr. Dutton Heme: Dr. Lobato Present on Admission - Present on Admission Any Indicators Present on Admission: Yes Review of Systems - Review of Systems All systems: reviewed and no additional remarkable complaints except Review of Systems: as per HPI Past Patient History - Infectious Disease Hx of Infectious Diseases: None - Past Medical History & Family History Past Medical History?: Yes - Past Social History Smoking Status: Former Smoker - CARDIAC Hx Hypertension: Yes - PULMONARY Hx Bronchitis: Yes Hx Chronic Obstructive Pulmonary Disease (COPD): Yes Hx Pneumonia: Yes - NEUROLOGICAL Hx Neurological Disorder: No - HEENT Hx HEENT Problems: No Other/Comment: wears glasses - RENAL Hx Chronic Kidney Disease: Yes - ENDOCRINE/METABOLIC Hx Endocrine Disorders: Yes Hx Diabetes Mellitus Type 2: Yes - HEMATOLOGICAL/ONCOLOGICAL Hx Blood Disorders: Yes Hx Blood Transfusions: Yes - INTEGUMENTARY Hx Dermatological Problems: No - MUSCULOSKELETAL/RHEUMATOLOGICAL Hx Arthritis: Yes - GASTROINTESTINAL Hx Gastrointestinal Disorders: Yes Other/Comment: HERNIA - GENITOURINARY/GYNECOLOGICAL Hx Genitourinary Disorders: No - PSYCHIATRIC Hx Substance Use: No - SURGICAL HISTORY Hx Surgeries: Yes Hx Herniorrhaphy: Yes (RIGHT INGUINAL) - ANESTHESIA Hx Anesthesia: Yes Hx Anesthesia Reactions: No Hx Malignant Hyperthermia: No Meds Allergies/Adverse Reactions: Allergies Allergy/AdvReac Type Severity Reaction Status Date / Time aspirin Allergy Severe PAIN Verified 08/24/18 13:31 Physical Exam - Constitutional Appears: No Acute Distress, Chronically Ill - Head Exam Head Exam: NORMAL INSPECTION, NORMOCEPHALIC - Eye Exam Eye Exam: EOMI, Normal appearance, PERRL Pupil Exam: NORMAL ACCOMODATION - ENT Exam ENT Exam: Mucous Membranes Moist, Normal Exam - Neck Exam Neck exam: Positive for: Full Rom, Normal Inspection. Negative for: Tenderness - Respiratory Exam Respiratory Exam: Decreased Breath Sounds, Rhonchi, NORMAL BREATHING PATTERN. absent: Accessory Muscle Use, Wheezes, Respiratory Distress Additional comments: R portacath intact - Cardiovascular Exam Cardiovascular Exam: Tachycardia, +S1, +S2 - GI/Abdominal Exam GI & Abdominal Exam: Normal Bowel Sounds, Soft Additional comments: peritoneal cath dressing c/d/i - Rectal Exam Rectal Exam: NORMAL INSPECTION - Extremities Exam Extremities exam: Positive for: normal capillary refill, normal inspection, pedal pulses present. Negative for: calf tenderness, pedal edema - Back Exam Back exam: NORMAL INSPECTION. absent: CVA tenderness (L), CVA tenderness (R) - Neurological Exam Neurological exam: Alert, CN II-XII Intact, Oriented x3 - Psychiatric Exam Psychiatric exam: Normal Affect, Normal Mood - Skin Skin Exam: Dry, Intact, Normal Color, Warm Results - Vital Signs Recent Vital Signs: Last Vital Signs Temp 99.1 F 08/24/18 16:34 Pulse 102 H 08/24/18 16:34 Resp 20 08/24/18 16:34 BP 152/79 H 08/24/18 16:34 Pulse Ox 93 L 08/24/18 16:34 - Labs Result Diagrams: 08/24/18 14:32 08/24/18 14:32 Labs: Laboratory Results - last 24 hr 08/24/18 08/24/18 08/24/18 14:32 14:32 14:32 WBC 8.1 RBC 2.23 L Hgb 7.5 L Hct 22.2 L MCV 99.6 H MCH 33.6 H MCHC 33.7 RDW 21.0 H Plt Count 221 MPV 8.3 Neut % (Auto) 82.1 H Lymph % (Auto) 4.8 L Rains % (Auto) 11.5 H Eos % (Auto) 0.8 Baso % (Auto) 0.8 Neut # (Auto) 6.7 Lymph # (Auto) 0.4 L Rains # (Auto) 0.9 H Eos # (Auto) 0.1 Baso # (Auto) 0.1 Neutrophils % (Manual) 81 H Band Neutrophils % 3 H Lymphocytes % (Manual) 9 L Monocytes % (Manual) 7 Platelet Estimate Normal Polychromasia Slight Hypochromasia (manual) Slight Anisocytosis (manual) Slight PT 10.7 INR 1.0 APTT 27 Sodium 136 Potassium 4.0 Chloride 99 Carbon Dioxide 30 Anion Gap 10 BUN 50 H Creatinine 2.7 H Est GFR ( Amer) 28 Est GFR (Non-Af Amer) 23 Random Glucose 202 H D Calcium 8.6 Total Bilirubin 3.7 H AST 235 H D ALT 14 L D Alkaline Phosphatase 59 Total Protein 6.4 Albumin 3.5 D Globulin 2.9 Albumin/Globulin Ratio 1.2 Urine Color Urine Clarity Urine pH Ur Specific Sweet Urine Protein Urine Glucose (UA) Urine Ketones Urine Blood Urine Nitrate Urine Bilirubin Urine Urobilinogen Ur Leukocyte Esterase Urine WBC (Auto) Urine RBC (Auto) Ur Squamous Epith Cells Urine Bacteria Stool Occult Blood 08/24/18 08/24/18 14:44 15:52 WBC RBC Hgb Hct MCV MCH MCHC RDW Plt Count MPV Neut % (Auto) Lymph % (Auto) Rains % (Auto) Eos % (Auto) Baso % (Auto) Neut # (Auto) Lymph # (Auto) Rains # (Auto) Eos # (Auto) Baso # (Auto) Neutrophils % (Manual) Band Neutrophils % Lymphocytes % (Manual) Monocytes % (Manual) Platelet Estimate Polychromasia Hypochromasia (manual) Anisocytosis (manual) PT INR APTT Sodium Potassium Chloride Carbon Dioxide Anion Gap BUN Creatinine Est GFR ( Amer) Est GFR (Non-Af Amer) Random Glucose Calcium Total Bilirubin AST ALT Alkaline Phosphatase Total Protein Albumin Globulin Albumin/Globulin Ratio Urine Color Red Urine Clarity Clear Urine pH 8.0 Ur Specific Sweet 1.026 Urine Protein 2+ H Urine Glucose (UA) 2+ H Urine Ketones Trace Urine Blood 3+ H Urine Nitrate Negative Urine Bilirubin Negative Urine Urobilinogen Normal Ur Leukocyte Esterase Neg Urine WBC (Auto) 6 H Urine RBC (Auto) 409 H Ur Squamous Epith Cells 2 Urine Bacteria Occ H Stool Occult Blood Negative Assessment & Plan - Assessment and Plan (Free Text) Assessment: 82 year old male with past medical history of HTN, HLD, DM, ESRD on HD TTS, COPD, and chronic anemia presenting to ED for gross hematuria and black watery stools for the past 2 weeks. Plan: Gross hematuria Black watery stools, r/o GI bleed -Hb 7.5 -UA 3+ blood, 409 RBC -occult stool x 1 negative -EKG: sinus tachycardia, nonspecific T wave abnormality -CXR: Resolving opacity at R base, r/o PNA at L base. Bibasilar atelectasis, possible v small R pleural effusion -f/u CT abdomen/pelvis -f/u repeat occult stool x 2 -fecal leukocytes, ova and parasite, c diff, stool cx -type and cross -transfuse 1 unit pRBC, continue to monitor -Urology (Dr. Emerson) consulted -GI (Dr. Bell) consulted ESRD on HD (TTS) -BUN/Cr: 50/2.7 (08/24) -last HD session yesterday (08/23) -Nephrology (Dr. Dutton) on case -calcitriol 0.25 mcg PO daily -folic acid 1 mg PO daily Hx of COPD Pulmonary Fibrosis -CXR (08/24): Resolving opacity at R base, r/o PNA at L base. Bibasilar atelectasis, possible v small R pleural effusion -no acute sob -duonebs q4 prn -solumedrol 40 daily new -breo ellipta 1 puff qD DM -home meds held -ISS low -accuchecks achs -hypoglycemic protocol Hx HTN -normotensive, continue to monitor -restart home norvasc 5 mg PO daily Hx of HLD -Crestor 5 mg PO HS NEW Anemia of chronic disease -2/2 underlying renal failure -H/H: 7.5/22.2 (08/24) -transfuse 1 unit pRBC, continue to monitor PPx, Diet, Disposition -DVT ppx: scds, oral AC held given acute bleeding -GI ppx: protonix 40 IV daily -Diet: clear liquids -PT on case Case discussed with Dr. Arun Reed DO, PGY-1 <Sabino Dias - Last Filed: 08/24/18 18:57> Results - Vital Signs Recent Vital Signs: Last Vital Signs Temp 98.6 F 08/24/18 17:41 Pulse 103 H 08/24/18 17:41 Resp 20 08/24/18 17:41 BP 148/71 08/24/18 17:41 Pulse Ox 95 08/24/18 17:41 - Labs Result Diagrams: 08/24/18 14:32 08/24/18 14:32 Labs: Laboratory Results - last 24 hr 08/24/18 08/24/18 08/24/18 14:32 14:32 14:32 WBC 8.1 RBC 2.23 L Hgb 7.5 L Hct 22.2 L MCV 99.6 H MCH 33.6 H MCHC 33.7 RDW 21.0 H Plt Count 221 MPV 8.3 Neut % (Auto) 82.1 H Lymph % (Auto) 4.8 L Rains % (Auto) 11.5 H Eos % (Auto) 0.8 Baso % (Auto) 0.8 Neut # (Auto) 6.7 Lymph # (Auto) 0.4 L Rains # (Auto) 0.9 H Eos # (Auto) 0.1 Baso # (Auto) 0.1 Neutrophils % (Manual) 81 H Band Neutrophils % 3 H Lymphocytes % (Manual) 9 L Monocytes % (Manual) 7 Platelet Estimate Normal Polychromasia Slight Hypochromasia (manual) Slight Anisocytosis (manual) Slight PT 10.7 INR 1.0 APTT 27 Sodium 136 Potassium 4.0 Chloride 99 Carbon Dioxide 30 Anion Gap 10 BUN 50 H Creatinine 2.7 H Est GFR ( Amer) 28 Est GFR (Non-Af Amer) 23 Random Glucose 202 H D Calcium 8.6 Total Bilirubin 3.7 H AST 235 H D ALT 14 L D Alkaline Phosphatase 59 Total Protein 6.4 Albumin 3.5 D Globulin 2.9 Albumin/Globulin Ratio 1.2 Urine Color Urine Clarity Urine pH Ur Specific Sweet Urine Protein Urine Glucose (UA) Urine Ketones Urine Blood Urine Nitrate Urine Bilirubin Urine Urobilinogen Ur Leukocyte Esterase Urine WBC (Auto) Urine RBC (Auto) Ur Squamous Epith Cells Urine Bacteria Stool Occult Blood 08/24/18 08/24/18 14:44 15:52 WBC RBC Hgb Hct MCV MCH MCHC RDW Plt Count MPV Neut % (Auto) Lymph % (Auto) Rains % (Auto) Eos % (Auto) Baso % (Auto) Neut # (Auto) Lymph # (Auto) Rains # (Auto) Eos # (Auto) Baso # (Auto) Neutrophils % (Manual) Band Neutrophils % Lymphocytes % (Manual) Monocytes % (Manual) Platelet Estimate Polychromasia Hypochromasia (manual) Anisocytosis (manual) PT INR APTT Sodium Potassium Chloride Carbon Dioxide Anion Gap BUN Creatinine Est GFR ( Amer) Est GFR (Non-Af Amer) Random Glucose Calcium Total Bilirubin AST ALT Alkaline Phosphatase Total Protein Albumin Globulin Albumin/Globulin Ratio Urine Color Red Urine Clarity Clear Urine pH 8.0 Ur Specific Sweet 1.026 Urine Protein 2+ H Urine Glucose (UA) 2+ H Urine Ketones Trace Urine Blood 3+ H Urine Nitrate Negative Urine Bilirubin Negative Urine Urobilinogen Normal Ur Leukocyte Esterase Neg Urine WBC (Auto) 6 H Urine RBC (Auto) 409 H Ur Squamous Epith Cells 2 Urine Bacteria Occ H Stool Occult Blood Negative Attending/Attestation - Attestation I have personally seen and examined this patient.: Yes I have fully participated in the care of the patient.: Yes I have reviewed all pertinent clinical information: Yes Notes (Text): Seen and examined with the resident. Patient is complaining of hematuria ,diarrhea and poor appetite for 2 weeks. Not on anticoagulation. His stool is black as per him,denies abdominal pain,no vomting.has anorexia and nausea. patient [place] than 5 [place]. He has a peritoneal and right chest dialysis cath getting HD,last one yesterday. His Hb dropped fro m 9.3 to 7.5 His urine is bloody/dark and stool is black transfuse one unit,GI and urology consult
--- NOTE | 2018-08-24 17:23 | RAD ---
Date of service: 08/24/2018 HISTORY: rule out chf COMPARISON: 08/09/2018 FINDINGS: LUNGS: Resolving opacity at right lung base. Linear configuration suggestive of atelectasis. Probable subsegmental atelectasis at left base. Cannot rule out pneumonia. No other abnormal opacity. PLEURA: Minimal blunting of right costophrenic angle may reflect pleural effusion or chronic pleural thickening. No left pleural effusion. No pneumothorax. CARDIOVASCULAR: There is atherosclerotic calcification of the thoracic aortic arch. Normal cardiac size. Right tunneled central venous dialysis catheter. OSSEOUS STRUCTURES: No significant abnormalities. VISUALIZED UPPER ABDOMEN: Normal. OTHER FINDINGS: None. IMPRESSION: Probable bibasilar subsegmental atelectasis. Rule out pneumonia at left base. Resolving opacity at right base. Possible very small right pleural effusion.
[2018-08-24] MEDS: MethylPREDNISolone 40 mg Vial IVP SCH (19:16)
--- NOTE | 2018-08-24 20:21 | CP.PCM.PCO ---
Physician Communication Note - Physician Communication Note Physician Communication Note: Type and screen repeated due to initial sample hemolyzed
[2018-08-24 21:11] LABS: BASO % 0.4 % (0.0-2.0); EOS # 0.1 K/uL (0.0-0.7); EOS % 1.4 % (0.0-4.0); HEMOGLOBIN 6.8 g/dL (12.0-18.0); LYMPH # 0.3 K/uL (1.0-4.3); LYMPH % 3.3 % (20.0-40.0); MEAN CELL VOLUME 98.6 fL (80.0-94.0); MEAN CORPUSCULAR HEMOGLOBIN 32.2 pg (27.0-31.0); MEAN CORPUSCULAR HGB CONC 32.6 g/dL (33.0-37.0); MEAN PLATELET VOLUME 7.9 fL (7.2-11.7); MONO # 0.5 K/uL (0.0-0.8); MONO % 5.6 % (0.0-10.0); NEUT % 89.3 % (50.0-75.0); PLATELET COUNT 211 K/uL (130-400); RED CELL DISTRIBUTION WIDTH 20.8 % (11.5-14.5)
[2018-08-24 21:21] LABS: IRON 59 ug/dL (49-181)
[2018-08-24 21:31] LABS: % IRON SATURATION 33 (20-55); TOTAL IRON BINDING CAPACITY 180 ug/dL (250-450)
[2018-08-24] MEDS: (Novolin R) Insulin Human Regular 100 units/ml vial SC SCH (21:38)
[2018-08-24 22:30] LABS: FOLATE > 20.0 ng/mL
[2018-08-24 22:33] LABS: BANDS 11 % (0-2); LYMPHOCYTE 3 % (20-40); MONOCYTE 5 % (0-10); NEUTROPHIL 81 % (50-75); PLATELET ESTIMATE NORMAL (NORMAL); TOTAL CELLS COUNTED 100
[2018-08-24 22:34] LABS: HYPOCHROMIC SLIGHT; MICROCYTOSIS SLIGHT
--- NOTE | 2018-08-25 07:55 | CP.PCM.PN ---
<Leroy Reed - Last Filed: 08/25/18 16:00> Subjective - Date & Time of Evaluation Date of Evaluation: 08/25/18 Time of Evaluation: 07:55 - Subjective Subjective: PGY-1 Medicine Progress Note for Dr. Dias Patient seen and examined at bedside s/p 1 unit pRBC tranfusion with approrpriate hemoglobin response. Continues to complain of some fatigue and suprapubic tenderness. Urinal noted by nurse to have dark ry colored urine. No new bloody BM noted. Patient has some sob, chronic nature. Scheduled for HD session today. 12 pt ROS reviewed and otherwise negative. Objective - Vital Signs/Intake and Output Vital Signs (last 24 hours): Temp Pulse Resp BP Pulse Ox 97.8 F 79 20 143/78 94 L 08/25/18 04:46 08/25/18 04:46 08/25/18 04:46 08/25/18 04:46 08/25/18 00:58 Intake and Output: 08/25/18 08/25/18 06:59 18:59 Intake Total 800 Balance 800 - Medications Medications: Current Medications Albuterol/Ipratropium (Duoneb 3 Mg/0.5 Mg (3 Ml) Ud) 3 ml INH RQ4 PRN PRN Reason: Shortness of Breath Calcitriol (Rocaltrol) 0.25 mcg PO DAILY [facility] Last Admin: 08/24/18 19:11 Dose: 0.25 mcg Dextrose (Dextrose 50% Inj) 0 ml IV STAT PRN; Protocol PRN Reason: Hypoglycemia Protocol Dextrose (Glutose 15) 0 gm PO ONCE PRN; Protocol PRN Reason: Hypoglycemia Protocol Fluticasone/Vilanterol (Breo Ellipta 100-25 Mcg Inh) 1 puff INH RQD NEW Folic Acid (Folic Acid) 1 mg PO DAILY [facility] Last Admin: 08/24/18 19:10 Dose: 1 mg Glucagon (Glucagen Diagnostic Kit) 0 mg IM STAT PRN; Protocol PRN Reason: Hypoglycemia Protocol Dextrose (Dextrose 5% In Water 1000 Ml) 1,000 mls @ 0 mls/hr IV .Q0M PRN; Protocol PRN Reason: Hypoglycemia Protocol Insulin Human Regular (Novolin R) 0 unit SC ACHS NEW; Protocol Last Admin: 08/24/18 21:38 Dose: Not Given Methylprednisolone (Solu-Medrol) 40 mg IVP DAILY [facility] Last Admin: 08/24/18 19:16 Dose: 40 mg Pantoprazole Sodium (Protonix Inj) 40 mg IVP DAILY [facility] Last Admin: 08/24/18 19:13 Dose: 40 mg Rosuvastatin Calcium (Crestor) 5 mg PO HS [facility] Last Admin: 08/24/18 23:00 Dose: 5 mg - Labs Labs: 08/24/18 21:04 08/24/18 14:32 PT 10.7 SECONDS (9.7-12.2) 08/24/18 14:32 INR 1.0 08/24/18 14:32 APTT 27 SECONDS (21-34) 08/24/18 14:32 - Constitutional Appears: No Acute Distress, Cachectic - Head Exam Head Exam: ATRAUMATIC, NORMAL INSPECTION, NORMOCEPHALIC - Eye Exam Eye Exam: EOMI, Normal appearance Pupil Exam: NORMAL ACCOMODATION - ENT Exam ENT Exam: Mucous Membranes Moist, Normal Exam - Neck Exam Neck Exam: Full ROM, Normal Inspection. absent: Tenderness - Respiratory Exam Respiratory Exam: Decreased Breath Sounds, Rhonchi, NORMAL BREATHING PATTERN. absent: Accessory Muscle Use, Respiratory Distress - Cardiovascular Exam Cardiovascular Exam: REGULAR RHYTHM, +S1, +S2 - GI/Abdominal Exam GI & Abdominal Exam: Soft, Tenderness (mild suprapubic TTP). absent: Distended, Firm, Guarding, Rigid, Rebound - Extremities Exam Extremities Exam: Full ROM, Normal Capillary Refill, Normal Inspection. absent: Calf Tenderness, Pedal Edema - Back Exam Back Exam: NORMAL INSPECTION. absent: CVA tenderness (L), CVA tenderness (R) - Neurological Exam Neurological Exam: Alert, Awake, Oriented x3 - Skin Skin Exam: Dry, Intact, Normal Color, Warm Assessment and Plan - Assessment and Plan (Free Text) Assessment: 82 year old male with past medical history of HTN, HLD, DM, ESRD on HD TTS, COPD, and chronic anemia presenting to ED for gross hematuria and black watery stools for the past 2 weeks. Plan: Hematuria Bilateral Nephrolithiasis -likely 2/2 b/l nephrolithiasis -s/p 1 unit pRBC, Hb 9.2 (08/25) -UA 3+ blood, 409 RBC -Urine Cx: no growth x 24 hrs -f/u Urology recs (Dr. Emerson) -EKG: sinus tachycardia, nonspecific T wave abnormality -CT abdomen/pelvis (08/24): B/L nephrolithiasis. Gallbladder distention with cholelithiasis. RLQ pelvic drainage tube catheter in place with small amount of free fluid in pelvic space. Colonic diverticulosis. RLL consolidation with extensive bibasilar bronchiectasis. Black watery stools, r/o GI bleed -no new episodes of bloody BM noted -occult stool x 1 negative -f/u repeat occult stool x 2 -fecal leukocytes, ova and parasite, c diff, stool cx -GI (Dr. Bell) recs appreciated -bowel prep administered -NPO for dinner -f/u retic count Right Lower Lobe Consolidation -previously seen on prior admission -pt afebrile, no leukocytosis -isolated increased bandemia -f/u BCx -zosyn renal dosin.25 gm q8 ESRD on HD (TTS) -BUN/Cr: 60/3.6 (08/25) -scheduled for HD today (08/25) -Nephrology (Dr. Dutton) on case -calcitriol 0.25 mcg PO daily -folic acid 1 mg PO daily Hx of COPD Pulmonary Fibrosis -CXR (08/24): Resolving opacity at R base, r/o PNA at L base. Bibasilar atelectasis, possible v small R pleural effusion -no acute sob -duonebs q4 prn -solumedrol 40 daily new -breo ellipta 1 puff qD DM -home meds held -ISS low -accuchecks achs -hypoglycemic protocol Hx HTN -normotensive, continue to monitor -restart home norvasc 5 mg PO daily Hx of HLD -Crestor 5 mg PO HS NEW Anemia of chronic disease -2/2 underlying renal failure -s/p 1 unit pRBC, continue to monitor PPx, Diet, Disposition -DVT ppx: scds, oral AC held given acute bleeding -GI ppx: protonix 40 IV daily -Diet: NPO -PT on case Case discussed with Dr. Arun Reed DO, PGY-1 <Sabino Dias - Last Filed: 08/27/18 18:33> Objective - Vital Signs/Intake and Output Vital Signs (last 24 hours): Temp Pulse Resp BP Pulse Ox 98.1 F 89 18 136/83 94 L 08/27/18 17:28 08/27/18 17:28 08/27/18 17:28 08/27/18 17:28 08/27/18 17:28 Intake and Output: 08/27/18 08/27/18 06:59 18:59 Intake Total 450 Output Total 175 Balance -175 450 - Medications Medications: Current Medications Albuterol/Ipratropium (Duoneb 3 Mg/0.5 Mg (3 Ml) Ud) 3 ml INH RQ4 [facility] Last Admin: 08/27/18 11:07 Dose: 3 ml Benzonatate (Tessalon Perles) 100 mg PO TID [facility] Last Admin: 08/27/18 13:25 Dose: 100 mg Calcitriol (Rocaltrol) 0.25 mcg PO DAILY [facility] Last Admin: 08/27/18 09:00 Dose: 0.25 mcg Dextrose (Dextrose 50% Inj) 0 ml IV STAT PRN; Protocol PRN Reason: Hypoglycemia Protocol Last Admin: 08/26/18 06:59 Dose: 50 ml Dextrose (Glutose 15) 0 gm PO ONCE PRN; Protocol PRN Reason: Hypoglycemia Protocol Epoetin Justino (Procrit) 10,000 unit IV TTS [facility] Last Admin: 08/27/18 15:53 Dose: 10,000 unit Folic Acid (Folic Acid) 1 mg PO DAILY [facility] Last Admin: 08/27/18 09:00 Dose: 1 mg Glucagon (Glucagen Diagnostic Kit) 0 mg IM STAT PRN; Protocol PRN Reason: Hypoglycemia Protocol Dextrose (Dextrose 5% In Water 1000 Ml) 1,000 mls @ 0 mls/hr IV .Q0M PRN; Protocol PRN Reason: Hypoglycemia Protocol Piperacillin Sod/Tazobactam Sod (Zosyn 2.25 Gm Iv Premix) 2.25 gm in 50 mls @ 100 mls/hr IVPB Q8H [facility]; Protocol Last Admin: 08/27/18 08:46 Dose: 100 mls/hr Vancomycin HCl 500 mg/ Sodium (Chloride) 100 mls @ 67 mls/hr IVPB TTS [facility]; Protocol Last Admin: 08/26/18 19:33 Dose: 67 mls/hr Insulin Human Regular (Novolin R) 0 unit SC ACHS [facility]; Protocol Last Admin: 08/27/18 12:53 Dose: 1 units Methylprednisolone (Solu-Medrol) 40 mg IVP DAILY [facility] Last Admin: 08/27/18 09:00 Dose: 40 mg Pantoprazole Sodium (Protonix Inj) 40 mg IVP DAILY [facility] Last Admin: 08/27/18 09:00 Dose: 40 mg Rosuvastatin Calcium (Crestor) 5 mg PO HS [facility] Last Admin: 08/26/18 21:45 Dose: 5 mg - Labs Labs: 08/27/18 07:27 08/27/18 07:27 PT 10.7 SECONDS (9.7-12.2) 08/24/18 14:32 INR 1.0 08/24/18 14:32 APTT 27 SECONDS (21-34) 08/24/18 14:32 Attending/Attestation - Attestation I have personally seen and examined this patient.: Yes I have fully participated in the care of the patient.: Yes I have reviewed all pertinent clinical information, including history, physical exam and plan: Yes Notes (Text): Patient was seen and examined with the resident. This is an 83 years old male with a history of bilateral nephrolithiasis, pulmonary fibrosis end-stage renal disease on hemodialysis came for hematuria and dark stool. Stool occult blood negative.Patient was seen by Dr. Saini. going for colonoscopy. Urology was consulted for hematuria. Started on Zosyn for right lower lobe pneumonia .on steroid for pulmonary fibrosis. we will monitor CBC and transfuse as needed
[2018-08-25] MEDS ORDERED: Fluticasone-Vilanterol 100/25mcg Diskus INH SCH (08:00)
[2018-08-25 08:01] LABS: ALB/GLOB RATIO 1.3 (1.0-2.1); ALBUMIN 3.4 g/dL (3.5-5.0); CALCIUM 9.2 mg/dl (8.6-10.4)
[2018-08-25 08:05] LABS: BASO % 0.3 % (0.0-2.0); EOS % 0.1 % (0.0-4.0); LYMPH # 0.3 K/uL (1.0-4.3); LYMPH % 5.7 % (20.0-40.0); MEAN CORPUSCULAR HEMOGLOBIN 31.1 pg (27.0-31.0); MEAN CORPUSCULAR HGB CONC 32.5 g/dL (33.0-37.0); MEAN PLATELET VOLUME 8.3 fL (7.2-11.7); MONO # 0.2 K/uL (0.0-0.8); MONO % 3.1 % (0.0-10.0); NEUT # 4.8 K/uL (1.8-7.0); NEUT % 90.8 % (50.0-75.0); PLATELET COUNT 210 K/uL (130-400); RBC 2.96 Mil/uL (4.40-5.90); RED CELL DISTRIBUTION WIDTH 20.5 % (11.5-14.5); WHITE BLOOD COUNT 5.3 K/uL (4.8-10.8)
[2018-08-25 08:20] LABS: HEMOGLOBIN 9.2 g/dL (12.0-18.0); MEAN CELL VOLUME 95.7 fL (80.0-94.0)
[2018-08-25] MEDS: (Novolin R) Insulin Human Regular 100 units/ml vial SC SCH ×4 (08:49→21:05)
[2018-08-25 09:14] LABS: BANDS 3 % (0-2); LYMPHOCYTE 4 % (20-40); MONOCYTE 3 % (0-10); NEUTROPHIL 90 % (50-75); PLATELET ESTIMATE NORMAL (NORMAL); TOTAL CELLS COUNTED 100
[2018-08-25 09:15] LABS: ANISOCYTOSIS SLIGHT; BURR CELLS SLIGHT; HYPOCHROMIC SLIGHT; POIKILOCYTOSIS SLIGHT
[2018-08-25] MEDS: MethylPREDNISolone 40 mg Vial IVP SCH (09:20)
--- NOTE | 2018-08-25 10:53 | CP.PCM.CON ---
History of Present Illness - History of Present Illness History of Present Illness: Patient is an 82 year old male with past medical history of HTN, HLD, DM, ESRD on HD TTS, COPD, and chronic anemia presenting to ED for gross hematuria and black watery stools for the past 2 weeks. Patient states he has had several episodes of diarrhea daily, approximately every 2 hours. Nothing makes it better. He denies decreased appetite or worsening of diarrhea with food intake, stating it is constant ~ every 2 hours regardless. Hematuria has been present for approximately 2 weeks as well. Of note, urine by bedside appeared grossly bloody. He states he thought it would have resolved on its own, which is why he did not come sooner. He endorses associated abdominal cramping/pain on days he receives HD (TTS), but denies any current abdominal pain. His last HD session was yesterday. No fevers/chills, headaches, chest pain, palpitations, acute sob, vomiting, diarrhea, dysuria, or increased urinary frequency. 12 pt ROS reviewed and otherwise negative. Did not have dialaysis 08/24 Attempted PD but did not finish c/o gross hematuria, blood in stools PMHx: HTN, HLD, DM, ESRD on HD (TTS), COPD, anemia PSHx: R inguinal hernia repair x2; PD cath insertion Allergies: ASA--"stomach hurts" Social Hx: +former smoker, quit at age 42, 1-2ppd. No alcohol or illicit drug use Family Hx: noncontributory; no CKD Review of Systems - Constitutional Constitutional: Daytime Sleepiness, Fatigue, Weight Loss - EENT Eyes: absent: As Per HPI, Blind Spots, Blurred Vision, Change in Vision, Decreased Night Vision, Diplopia, Discharge, Dry Eye, Exophthalmos, Floaters, Irritation, Itchy Eyes, Loss of Peripheral Vision, Pain, Photophobia, Requires Corrective Lenses, Sees Flashes, Spots in Vision, Tunnel Vision, Other Visual Disturbances, Loss of Vision, Other Ears: absent: As Per HPI, Decreased Hearing, Ear Discharge, Ear Pain, Tinnitus, Abnormal Hearing, Disequilibrium, Dizziness, Other - Cardiovascular Cardiovascular: Dyspnea on Exertion, Irregular Heart Rhythm - Respiratory Respiratory: Cough, Dyspnea on Exertion - Gastrointestinal Gastrointestinal: Early Satiety - Genitourinary Genitourinary: As Per HPI - Musculoskeletal Musculoskeletal: Muscle Cramps, Muscle Weakness, Myalgias Past Patient History - Infectious Disease Hx of Infectious Diseases: None - Past Medical History & Family History Past Medical History?: Yes Past Family History: Reviewed and not pertinent - Past Social History Smoking Status: Former Smoker Chewing Tobacco Use: No Cigar Use: No Alcohol: None Drugs: Denies Home Situation {Lives}: With Family - CARDIAC Hx Hypertension: Yes - PULMONARY Hx Bronchitis: Yes Hx Chronic Obstructive Pulmonary Disease (COPD): Yes Hx Pneumonia: Yes - NEUROLOGICAL Hx Neurological Disorder: No - HEENT Hx HEENT Problems: No Other/Comment: wears glasses - RENAL Hx Chronic Kidney Disease: Yes - ENDOCRINE/METABOLIC Hx Endocrine Disorders: Yes Hx Diabetes Mellitus Type 2: Yes - HEMATOLOGICAL/ONCOLOGICAL Hx Blood Disorders: Yes Hx Blood Transfusions: Yes - INTEGUMENTARY Hx Dermatological Problems: No - MUSCULOSKELETAL/RHEUMATOLOGICAL Hx Arthritis: Yes - GASTROINTESTINAL Hx Gastrointestinal Disorders: Yes Other/Comment: HERNIA - GENITOURINARY/GYNECOLOGICAL Hx Genitourinary Disorders: No - PSYCHIATRIC Hx Substance Use: No - SURGICAL HISTORY Hx Surgeries: Yes Hx Herniorrhaphy: Yes (RIGHT INGUINAL) - ANESTHESIA Hx Anesthesia: Yes Hx Anesthesia Reactions: No Hx Malignant Hyperthermia: No Meds Allergies/Adverse Reactions: Allergies Allergy/AdvReac Type Severity Reaction Status Date / Time aspirin Allergy Severe PAIN Verified 08/24/18 13:31 - Medications Medications: Current Medications Albuterol/Ipratropium (Duoneb 3 Mg/0.5 Mg (3 Ml) Ud) 3 ml INH RQ4 PRN PRN Reason: Shortness of Breath Calcitriol (Rocaltrol) 0.25 mcg PO DAILY [facility] Last Admin: 08/25/18 09:20 Dose: 0.25 mcg Dextrose (Dextrose 50% Inj) 0 ml IV STAT PRN; Protocol PRN Reason: Hypoglycemia Protocol Dextrose (Glutose 15) 0 gm PO ONCE PRN; Protocol PRN Reason: Hypoglycemia Protocol Fluticasone/Vilanterol (Breo Ellipta 100-25 Mcg Inh) 1 puff INH RQD [facility] Last Admin: 08/25/18 10:43 Dose: 1 puff Folic Acid (Folic Acid) 1 mg PO DAILY [facility] Last Admin: 08/25/18 09:20 Dose: 1 mg Glucagon (Glucagen Diagnostic Kit) 0 mg IM STAT PRN; Protocol PRN Reason: Hypoglycemia Protocol Dextrose (Dextrose 5% In Water 1000 Ml) 1,000 mls @ 0 mls/hr IV .Q0M PRN; Protocol PRN Reason: Hypoglycemia Protocol Insulin Human Regular (Novolin R) 0 unit SC ACHS [facility]; Protocol Last Admin: 08/25/18 08:49 Dose: 2 units Methylprednisolone (Solu-Medrol) 40 mg IVP DAILY [facility] Last Admin: 08/25/18 09:20 Dose: 40 mg Pantoprazole Sodium (Protonix Inj) 40 mg IVP DAILY [facility] Last Admin: 08/25/18 09:20 Dose: 40 mg Rosuvastatin Calcium (Crestor) 5 mg PO HS [facility] Last Admin: 08/24/18 23:00 Dose: 5 mg Physical Exam - Constitutional Appears: Confused, Chronically Ill - Head Exam Head Exam: ATRAUMATIC, NORMAL INSPECTION - Eye Exam Eye Exam: EOMI, Normal appearance - Neck Exam Neck exam: Positive for: Normal Inspection. Negative for: Tenderness - Respiratory Exam Respiratory Exam: Rhonchi, NORMAL BREATHING PATTERN - Cardiovascular Exam Cardiovascular Exam: REGULAR RHYTHM, +S1 - GI/Abdominal Exam GI & Abdominal Exam: Soft. absent: Tenderness - Extremities Exam Extremities exam: Positive for: normal inspection. Negative for: tenderness - Neurological Exam Neurological exam: Alert, CN II-XII Intact - Skin Skin Exam: Dry, Warm Results - Vital Signs Recent Vital Signs: Last Vital Signs Temp 97.5 F L 08/25/18 09:54 Pulse 85 08/25/18 09:54 Resp 20 08/25/18 09:54 BP 142/67 08/25/18 09:54 Pulse Ox 95 08/25/18 09:54 - Labs Result Diagrams: 08/25/18 07:32 08/25/18 07:32 Labs: Laboratory Results - last 24 hr 08/24/18 08/24/18 08/24/18 14:32 14:32 14:32 WBC 8.1 RBC 2.23 L Hgb 7.5 L Hct 22.2 L MCV 99.6 H MCH 33.6 H MCHC 33.7 RDW 21.0 H Plt Count 221 MPV 8.3 Neut % (Auto) 82.1 H Lymph % (Auto) 4.8 L [place] % (Auto) 11.5 H Eos % (Auto) 0.8 Baso % (Auto) 0.8 Neut # (Auto) 6.7 Lymph # (Auto) 0.4 L [place] # (Auto) 0.9 H Eos # (Auto) 0.1 Baso # (Auto) 0.1 Neutrophils % (Manual) 81 H Band Neutrophils % 3 H Lymphocytes % (Manual) 9 L Monocytes % (Manual) 7 Platelet Estimate Normal Polychromasia Slight Hypochromasia (manual) Slight Poikilocytosis (manual Anisocytosis (manual) Slight Microcytosis (manual) Jose Cells PT 10.7 INR 1.0 APTT 27 Sodium 136 Potassium 4.0 Chloride 99 Carbon Dioxide 30 Anion Gap 10 BUN 50 H Creatinine 2.7 H Est GFR ( Amer) 28 Est GFR (Non-Af Amer) 23 POC Glucose (mg/dL) Random Glucose 202 H D Calcium 8.6 Phosphorus Magnesium Iron TIBC % Saturation Ferritin Total Bilirubin 3.7 H AST 235 H D ALT 14 L D Alkaline Phosphatase 59 Total Protein 6.4 Albumin 3.5 D Globulin 2.9 Albumin/Globulin Ratio 1.2 Vitamin B12 Folate Urine Color Urine Clarity Urine pH Ur Specific [place] Urine Protein Urine Glucose (UA) Urine Ketones Urine Blood Urine Nitrate Urine Bilirubin Urine Urobilinogen Ur Leukocyte Esterase Urine WBC (Auto) Urine RBC (Auto) Ur Squamous Epith Cells Urine Bacteria Stool Occult Blood Blood Type Antibody Screen 08/24/18 08/24/18 08/24/18 14:44 15:52 21:04 WBC RBC Hgb Hct MCV MCH MCHC RDW Plt Count MPV Neut % (Auto) Lymph % (Auto) [place] % (Auto) Eos % (Auto) Baso % (Auto) Neut # (Auto) Lymph # (Auto) [place] # (Auto) Eos # (Auto) Baso # (Auto) Neutrophils % (Manual) Band Neutrophils % Lymphocytes % (Manual) Monocytes % (Manual) Platelet Estimate Polychromasia Hypochromasia (manual) Poikilocytosis (manual Anisocytosis (manual) Microcytosis (manual) Jose Cells PT INR APTT Sodium Potassium Chloride Carbon Dioxide Anion Gap BUN Creatinine Est GFR ( Amer) Est GFR (Non-Af Amer) POC Glucose (mg/dL) Random Glucose Calcium Phosphorus Magnesium Iron TIBC % Saturation Ferritin Total Bilirubin AST ALT Alkaline Phosphatase Total Protein Albumin Globulin Albumin/Globulin Ratio Vitamin B12 Folate Urine Color Red Urine Clarity Clear Urine pH 8.0 Ur Specific [place] 1.026 Urine Protein 2+ H Urine Glucose (UA) 2+ H Urine Ketones Trace Urine Blood 3+ H Urine Nitrate Negative Urine Bilirubin Negative Urine Urobilinogen Normal Ur Leukocyte Esterase Neg Urine WBC (Auto) 6 H Urine RBC (Auto) 409 H Ur Squamous Epith Cells 2 Urine Bacteria Occ H Stool Occult Blood Negative Blood Type O POSITIVE Antibody Screen Negative 08/24/18 08/24/18 08/24/18 21:04 21:04 21:04 WBC 9.0 RBC 2.10 L Hgb 6.8 L Hct 20.7 L MCV 98.6 H MCH 32.2 H MCHC 32.6 L RDW 20.8 H Plt Count 211 MPV 7.9 Neut % (Auto) 89.3 H Lymph % (Auto) 3.3 L [place] % (Auto) 5.6 Eos % (Auto) 1.4 Baso % (Auto) 0.4 Neut # (Auto) 8.0 H Lymph # (Auto) 0.3 L [place] # (Auto) 0.5 Eos # (Auto) 0.1 Baso # (Auto) 0.0 Neutrophils % (Manual) 81 H Band Neutrophils % 11 H* Lymphocytes % (Manual) 3 L Monocytes % (Manual) 5 Platelet Estimate Normal Polychromasia Hypochromasia (manual) Slight Poikilocytosis (manual Anisocytosis (manual) Microcytosis (manual) Slight Jose Cells PT INR APTT Sodium Potassium Chloride Carbon Dioxide Anion Gap BUN Creatinine Est GFR ( Amer) Est GFR (Non-Af Amer) POC Glucose (mg/dL) Random Glucose Calcium Phosphorus Magnesium Iron 59 TIBC 180 L % Saturation 33 Ferritin Total Bilirubin AST ALT Alkaline Phosphatase Total Protein Albumin Globulin Albumin/Globulin Ratio Vitamin B12 590 Folate > 20.0 Urine Color Urine Clarity Urine pH Ur Specific [place] Urine Protein Urine Glucose (UA) Urine Ketones Urine Blood Urine Nitrate Urine Bilirubin Urine Urobilinogen Ur Leukocyte Esterase Urine WBC (Auto) Urine RBC (Auto) Ur Squamous Epith Cells Urine Bacteria Stool Occult Blood Blood Type Antibody Screen 08/24/18 08/24/18 08/25/18 21:04 21:34 06:10 WBC RBC Hgb Hct MCV MCH MCHC RDW Plt Count MPV Neut % (Auto) Lymph % (Auto) [place] % (Auto) Eos % (Auto) Baso % (Auto) Neut # (Auto) Lymph # (Auto) [place] # (Auto) Eos # (Auto) Baso # (Auto) Neutrophils % (Manual) Band Neutrophils % Lymphocytes % (Manual) Monocytes % (Manual) Platelet Estimate Polychromasia Hypochromasia (manual) Poikilocytosis (manual Anisocytosis (manual) Microcytosis (manual) Lovely Cells PT INR APTT Sodium Potassium Chloride Carbon Dioxide Anion Gap BUN Creatinine Est GFR ( Amer) Est GFR (Non-Af Amer) POC Glucose (mg/dL) 198 H 233 H Random Glucose Calcium Phosphorus Magnesium Iron TIBC % Saturation Ferritin 1360.0 Total Bilirubin AST ALT Alkaline Phosphatase Total Protein Albumin Globulin Albumin/Globulin Ratio Vitamin B12 Folate Urine Color Urine Clarity Urine pH Ur Specific [place] Urine Protein Urine Glucose (UA) Urine Ketones Urine Blood Urine Nitrate Urine Bilirubin Urine Urobilinogen Ur Leukocyte Esterase Urine WBC (Auto) Urine RBC (Auto) Ur Squamous Epith Cells Urine Bacteria Stool Occult Blood Blood Type Antibody Screen 08/25/18 08/25/18 07:32 07:32 WBC 5.3 RBC 2.96 L Hgb 9.2 L D Hct 28.3 L MCV 95.7 H D MCH 31.1 H MCHC 32.5 L RDW 20.5 H Plt Count 210 MPV 8.3 Neut % (Auto) 90.8 H Lymph % (Auto) 5.7 L [place] % (Auto) 3.1 Eos % (Auto) 0.1 Baso % (Auto) 0.3 Neut # (Auto) 4.8 Lymph # (Auto) 0.3 L [place] # (Auto) 0.2 Eos # (Auto) 0.0 Baso # (Auto) 0.0 Neutrophils % (Manual) 90 H Band Neutrophils % 3 H Lymphocytes % (Manual) 4 L Monocytes % (Manual) 3 Platelet Estimate Normal Polychromasia Hypochromasia (manual) Slight Poikilocytosis (manual Slight Anisocytosis (manual) Slight Microcytosis (manual) Lovely Cells Slight PT INR APTT Sodium 133 Potassium 4.8 Chloride 98 Carbon Dioxide 30 Anion Gap 10 BUN 60 H Creatinine 3.6 H Est GFR ( Amer) 20 Est GFR (Non-Af Amer) 16 POC Glucose (mg/dL) Random Glucose 200 H Calcium 9.2 Phosphorus 5.2 H Magnesium 1.5 L Iron TIBC % Saturation Ferritin Total Bilirubin 3.4 H AST 168 H D ALT 16 L Alkaline Phosphatase 72 Total Protein 6.1 L Albumin 3.4 L Globulin 2.7 Albumin/Globulin Ratio 1.3 Vitamin B12 Folate Urine Color Urine Clarity Urine pH Ur Specific [place] Urine Protein Urine Glucose (UA) Urine Ketones Urine Blood Urine Nitrate Urine Bilirubin Urine Urobilinogen Ur Leukocyte Esterase Urine WBC (Auto) Urine RBC (Auto) Ur Squamous Epith Cells Urine Bacteria Stool Occult Blood Blood Type Antibody Screen Assessment & Plan (1) Hematuria Status: Acute (2) Anemia Status: Acute (3) ESRD on dialysis Status: Acute (4) Gastrointestinal hemorrhage Status: Acute (5) Bronchiectasis Status: Acute (6) COPD exacerbation Status: Acute - Assessment and Plan (Free Text) Plan: s/p blood transfusion check stool for OB check UC+S follow up chemistries/CBC dialysis now
--- NOTE | 2018-08-25 13:20 | CT ---
Date of service: 08/24/2018 PROCEDURE: CT Abdomen and Pelvis without intravenous contrast HISTORY: hx renal stones, gross hematuria COMPARISON: 03/05/2018 TECHNIQUE: Technique. Contrast dose: Radiation dose: Total exam DLP = 217.58 mGy-cm. This CT exam was performed using one or more of the following dose reduction techniques: Automated exposure control, adjustment of the mA and/or kV according to patient size, and/or use of iterative reconstruction technique. FINDINGS: LOWER THORAX: Dense consolidation and/or atelectasis in the lung bases with extensive bronchiectasis. LIVER: Unremarkable. No gross lesion or ductal dilatation. GALLBLADDER AND BILE DUCTS: Gallbladder distention with cholelithiasis. PANCREAS: Unremarkable. No gross lesion or ductal dilatation. SPLEEN: Unremarkable. ADRENALS: Unremarkable. No mass. KIDNEYS AND URETERS: Bilateral nephrolithiasis. VASCULATURE: Unremarkable. No aortic aneurysm. No aortic atherosclerotic calcification or mural plaque present. BOWEL: Colonic diverticulosis. APPENDIX: Unremarkable. Normal appendix. PERITONEUM: Unremarkable. No free fluid. No free air. LYMPH NODES: Unremarkable. No enlarged lymph nodes. BLADDER: Unremarkable. REPRODUCTIVE: Unremarkable. BONES: No acute fracture. OTHER FINDINGS: Pelvic drainage catheter with small amount of free fluid in the pelvis. IMPRESSION: Bilateral nephrolithiasis. Cholelithiasis. Right lower quadrant pelvic drainage tube catheter in place with small amount free fluid the pelvis. Colonic diverticulosis. Right lower lobe consolidation with extensive bibasilar bronchiectasis.
[2018-08-25] MEDS ORDERED: Piperacill/Tazo 2.25gm in Dex 2.25 GM/50 ML BAG IVPB SCH (16:00)
[2018-08-25] MEDS: Piperacill/Tazo 2.25gm in Dex 2.25 GM/50 ML BAG IVPB SCH (16:24)
[2018-08-25 17:22] LABS: C DIFF TOXIN A B NEGATIVE (NEGATIVE)
[2018-08-25 18:20] LABS: FECAL LEUKOCYTES NEGATIVE (NEGATIVE)
[2018-08-25] MEDS ORDERED: Peg-Electrolyte Oral Soln 4L (Golytely) PO ONE (19:00)
--- NOTE | 2018-08-25 19:08 | CP.PCM.PN ---
Subjective - Date & Time of Evaluation Date of Evaluation: 08/25/18 Time of Evaluation: 19:04 - Subjective Subjective: 82 year old male who was admitted with multiple med problems including bloody stool pt has had intermitant hematuria for 3 weeks. he is being preped for colonoscopy. CT done yesterday shows multiple non obstructing stonesPt has a peroteneal dialysis cath in place A gross hematuria Plan will schedule for cysto wednesday Objective - Vital Signs/Intake and Output Vital Signs (last 24 hours): Temp Pulse Resp BP Pulse Ox 98.1 F 92 H 20 127/65 94 L 08/25/18 15:42 08/25/18 16:00 08/25/18 15:42 08/25/18 15:42 08/25/18 15:42 Intake and Output: 08/25/18 08/26/18 18:59 06:59 Intake Total 300 Output Total 200 Balance 100 - Medications Medications: Current Medications Albuterol/Ipratropium (Duoneb 3 Mg/0.5 Mg (3 Ml) Ud) 3 ml INH RQ4 PRN PRN Reason: Shortness of Breath Calcitriol (Rocaltrol) 0.25 mcg PO DAILY [facility] Last Admin: 08/25/18 09:20 Dose: 0.25 mcg Dextrose (Dextrose 50% Inj) 0 ml IV STAT PRN; Protocol PRN Reason: Hypoglycemia Protocol Dextrose (Glutose 15) 0 gm PO ONCE PRN; Protocol PRN Reason: Hypoglycemia Protocol Fluticasone/Vilanterol (Breo Ellipta 100-25 Mcg Inh) 1 puff INH RQD [facility] Last Admin: 08/25/18 10:43 Dose: 1 puff Folic Acid (Folic Acid) 1 mg PO DAILY [facility] Last Admin: 08/25/18 09:20 Dose: 1 mg Glucagon (Glucagen Diagnostic Kit) 0 mg IM STAT PRN; Protocol PRN Reason: Hypoglycemia Protocol Dextrose (Dextrose 5% In Water 1000 Ml) 1,000 mls @ 0 mls/hr IV .Q0M PRN; Protocol PRN Reason: Hypoglycemia Protocol Piperacillin Sod/Tazobactam Sod (Zosyn 2.25 Gm Iv Premix) 2.25 gm in 50 mls @ 100 mls/hr IVPB Q8H [facility]; Protocol Last Admin: 08/25/18 16:24 Dose: 100 mls/hr Insulin Human Regular (Novolin R) 0 unit SC [facility]; Protocol Last Admin: 08/25/18 16:56 Dose: 1 units Methylprednisolone (Solu-Medrol) 40 mg IVP DAILY [facility] Last Admin: 08/25/18 09:20 Dose: 40 mg Pantoprazole Sodium (Protonix Inj) 40 mg IVP DAILY [facility] Last Admin: 08/25/18 09:20 Dose: 40 mg Rosuvastatin Calcium (Crestor) 5 mg PO HS [facility] Last Admin: 08/24/18 23:00 Dose: 5 mg - Labs Labs: 08/25/18 07:32 08/25/18 07:32 PT 10.7 SECONDS (9.7-12.2) 08/24/18 14:32 INR 1.0 08/24/18 14:32 APTT 27 SECONDS (21-34) 08/24/18 14:32
--- NOTE | 2018-08-25 19:18 | CP.PCM.CON ---
History of Present Illness - History of Present Illness History of Present Illness: This is n 82 year old man with diarrhea, anemia, and blood in the stool. Patien presented to the ER 08/24/2018 with a one-week history of blood in the urine, blood in the stool, cramping abdominal pain. The stools have been loose recently. A peritoneal dialysis catheter was inserted one month ago.At present, the pain has resolved. He denies having heartburn, nausea, vomiting, heartburn, diarrhea, constipation. He also has difficulty swallowing tablets. On admission, he was anemic, HGB 6.8, with elevated MCV 99.6, elevated total bilirubin 3.7, AST 235, ALT 14, negative stool occult blood. Review of Systems - Review of Systems All systems: reviewed and no additional remarkable complaints except - Constitutional Constitutional: absent: Chills, Fever, Headache - Cardiovascular Cardiovascular: absent: Chest Pain, Palpitations - Respiratory Respiratory: Dyspnea. absent: Cough - Gastrointestinal Gastrointestinal: Abdominal Pain, Diarrhea, Dysphagia, Hematochezia. absent: Heartburn, Nausea, Vomiting - Genitourinary Genitourinary: absent: Dysuria, Urinary Frequency Past Patient History - Infectious Disease Hx of Infectious Diseases: None - Past Medical History & Family History Past Medical History?: Yes Past Family History: Reviewed and not pertinent - Past Social History Smoking Status: Former Smoker Chewing Tobacco Use: No Cigar Use: No Alcohol: None Drugs: Denies Home Situation {Lives}: With Family - CARDIAC Hx Hypertension: Yes - PULMONARY Hx Chronic Obstructive Pulmonary Disease (COPD): Yes - NEUROLOGICAL Hx Neurological Disorder: No - HEENT Hx HEENT Problems: No Other/Comment: wears glasses - RENAL Hx Chronic Kidney Disease: Yes - ENDOCRINE/METABOLIC Hx Endocrine Disorders: Yes Hx Diabetes Mellitus Type 2: Yes - HEMATOLOGICAL/ONCOLOGICAL Hx Blood Disorders: Yes Hx Blood Transfusions: Yes - INTEGUMENTARY Hx Dermatological Problems: No - MUSCULOSKELETAL/RHEUMATOLOGICAL Hx Arthritis: Yes - GASTROINTESTINAL Hx Gastrointestinal Disorders: Yes Other/Comment: HERNIA - GENITOURINARY/GYNECOLOGICAL Hx Genitourinary Disorders: No - PSYCHIATRIC Hx Substance Use: No - SURGICAL HISTORY Hx Surgeries: Yes Hx Herniorrhaphy: Yes (RIGHT INGUINAL) - ANESTHESIA Hx Anesthesia: Yes Hx Anesthesia Reactions: No Hx Malignant Hyperthermia: No Meds Allergies/Adverse Reactions: Allergies Allergy/AdvReac Type Severity Reaction Status Date / Time aspirin Allergy Severe PAIN Verified 08/24/18 13:31 - Medications Medications: Current Medications Albuterol/Ipratropium (Duoneb 3 Mg/0.5 Mg (3 Ml) Ud) 3 ml INH RQ4 PRN PRN Reason: Shortness of Breath Calcitriol (Rocaltrol) 0.25 mcg PO DAILY [facility] Last Admin: 08/25/18 09:20 Dose: 0.25 mcg Dextrose (Dextrose 50% Inj) 0 ml IV STAT PRN; Protocol PRN Reason: Hypoglycemia Protocol Dextrose (Glutose 15) 0 gm PO ONCE PRN; Protocol PRN Reason: Hypoglycemia Protocol Fluticasone/Vilanterol (Breo Ellipta 100-25 Mcg Inh) 1 puff INH RQD [facility] Last Admin: 08/25/18 10:43 Dose: 1 puff Folic Acid (Folic Acid) 1 mg PO DAILY [facility] Last Admin: 08/25/18 09:20 Dose: 1 mg Glucagon (Glucagen Diagnostic Kit) 0 mg IM STAT PRN; Protocol PRN Reason: Hypoglycemia Protocol Dextrose (Dextrose 5% In Water 1000 Ml) 1,000 mls @ 0 mls/hr IV .Q0M PRN; Protocol PRN Reason: Hypoglycemia Protocol Piperacillin Sod/Tazobactam Sod (Zosyn 2.25 Gm Iv Premix) 2.25 gm in 50 mls @ 100 mls/hr IVPB Q8H [facility]; Protocol Last Admin: 08/25/18 16:24 Dose: 100 mls/hr Insulin Human Regular (Novolin R) 0 unit SC ACHS [facility]; Protocol Last Admin: 08/25/18 16:56 Dose: 1 units Methylprednisolone (Solu-Medrol) 40 mg IVP DAILY [facility] Last Admin: 08/25/18 09:20 Dose: 40 mg Pantoprazole Sodium (Protonix Inj) 40 mg IVP DAILY [facility] Last Admin: 08/25/18 09:20 Dose: 40 mg Rosuvastatin Calcium (Crestor) 5 mg PO HS [facility] Last Admin: 08/24/18 23:00 Dose: 5 mg Physical Exam - Constitutional Appears: No Acute Distress - Head Exam Head Exam: ATRAUMATIC, NORMOCEPHALIC - Eye Exam Eye Exam: EOMI, PERRL - Neck Exam Neck exam: Negative for: Lymphadenopathy, Thyromegaly - Respiratory Exam Respiratory Exam: NORMAL BREATHING PATTERN. absent: Rales, Rhonchi, Wheezes - Cardiovascular Exam Cardiovascular Exam: REGULAR RHYTHM, +S1, +S2. absent: Rubs, Systolic Murmur - GI/Abdominal Exam GI & Abdominal Exam: Normal Bowel Sounds, Soft. absent: Organomegaly, Tenderness Additional comments: PD catheter in place - Rectal Exam Rectal Exam: Deferred - Extremities Exam Extremities exam: Negative for: calf tenderness, pedal edema Results - Vital Signs Recent Vital Signs: Last Vital Signs Temp 98.1 F 08/25/18 15:42 Pulse 92 H 08/25/18 16:00 Resp 20 08/25/18 15:42 BP 127/65 08/25/18 15:42 Pulse Ox 94 L 08/25/18 15:42 - Labs Result Diagrams: 08/25/18 07:32 08/25/18 07:32 Labs: Laboratory Results - last 24 hr 08/24/18 08/24/18 08/24/18 21:04 21:04 21:04 WBC RBC Hgb Hct MCV MCH MCHC RDW Plt Count MPV Neut % (Auto) Lymph % (Auto) [place] % (Auto) Eos % (Auto) Baso % (Auto) Neut # (Auto) Lymph # (Auto) [place] # (Auto) Eos # (Auto) Baso # (Auto) Neutrophils % (Manual) Band Neutrophils % Lymphocytes % (Manual) Monocytes % (Manual) Platelet Estimate Hypochromasia (manual) Poikilocytosis (manual Anisocytosis (manual) Microcytosis (manual) [place] Cells Sodium Potassium Chloride Carbon Dioxide Anion Gap BUN Creatinine Est GFR ( Amer) Est GFR (Non-Af Amer) POC Glucose (mg/dL) Random Glucose Calcium Phosphorus Magnesium Iron 59 TIBC 180 L % Saturation 33 Ferritin Total Bilirubin AST ALT Alkaline Phosphatase Total Protein Albumin Globulin Albumin/Globulin Ratio Vitamin B12 590 Folate > 20.0 Stool Leukocytes, Qual C. difficile Ag & Toxin Blood Type O POSITIVE Antibody Screen Negative 08/24/18 08/24/18 08/24/18 21:04 21:04 21:34 WBC 9.0 RBC 2.10 L Hgb 6.8 L Hct 20.7 L MCV 98.6 H MCH 32.2 H MCHC 32.6 L RDW 20.8 H Plt Count 211 MPV 7.9 Neut % (Auto) 89.3 H Lymph % (Auto) 3.3 L [place] % (Auto) 5.6 Eos % (Auto) 1.4 Baso % (Auto) 0.4 Neut # (Auto) 8.0 H Lymph # (Auto) 0.3 L [place] # (Auto) 0.5 Eos # (Auto) 0.1 Baso # (Auto) 0.0 Neutrophils % (Manual) 81 H Band Neutrophils % 11 H* Lymphocytes % (Manual) 3 L Monocytes % (Manual) 5 Platelet Estimate Normal Hypochromasia (manual) Slight Poikilocytosis (manual Anisocytosis (manual) Microcytosis (manual) Slight [place] Cells Sodium Potassium Chloride Carbon Dioxide Anion Gap BUN Creatinine Est GFR ( Amer) Est GFR (Non-Af Amer) POC Glucose (mg/dL) 198 H Random Glucose Calcium Phosphorus Magnesium Iron TIBC % Saturation Ferritin 1360.0 Total Bilirubin AST ALT Alkaline Phosphatase Total Protein Albumin Globulin Albumin/Globulin Ratio Vitamin B12 Folate Stool Leukocytes, Qual C. difficile Ag & Toxin Blood Type Antibody Screen 08/25/18 08/25/18 08/25/18 06:10 07:32 07:32 WBC 5.3 RBC 2.96 L Hgb 9.2 L D Hct 28.3 L MCV 95.7 H D MCH 31.1 H MCHC 32.5 L RDW 20.5 H Plt Count 210 MPV 8.3 Neut % (Auto) 90.8 H Lymph % (Auto) 5.7 L [place] % (Auto) 3.1 Eos % (Auto) 0.1 Baso % (Auto) 0.3 Neut # (Auto) 4.8 Lymph # (Auto) 0.3 L [place] # (Auto) 0.2 Eos # (Auto) 0.0 Baso # (Auto) 0.0 Neutrophils % (Manual) 90 H Band Neutrophils % 3 H Lymphocytes % (Manual) 4 L Monocytes % (Manual) 3 Platelet Estimate Normal Hypochromasia (manual) Slight Poikilocytosis (manual Slight Anisocytosis (manual) Slight Microcytosis (manual) [place] Cells Slight Sodium 133 Potassium 4.8 Chloride 98 Carbon Dioxide 30 Anion Gap 10 BUN 60 H Creatinine 3.6 H Est GFR ( Amer) 20 Est GFR (Non-Af Amer) 16 POC Glucose (mg/dL) 233 H Random Glucose 200 H Calcium 9.2 Phosphorus 5.2 H Magnesium 1.5 L Iron TIBC % Saturation Ferritin Total Bilirubin 3.4 H AST 168 H D ALT 16 L Alkaline Phosphatase 72 Total Protein 6.1 L Albumin 3.4 L Globulin 2.7 Albumin/Globulin Ratio 1.3 Vitamin B12 Folate Stool Leukocytes, Qual C. difficile Ag & Toxin Blood Type Antibody Screen 08/25/18 08/25/18 11:53 15:03 WBC RBC Hgb Hct MCV MCH MCHC RDW Plt Count MPV Neut % (Auto) Lymph % (Auto) [place] % (Auto) Eos % (Auto) Baso % (Auto) Neut # (Auto) Lymph # (Auto) [place] # (Auto) Eos # (Auto) Baso # (Auto) Neutrophils % (Manual) Band Neutrophils % Lymphocytes % (Manual) Monocytes % (Manual) Platelet Estimate Hypochromasia (manual) Poikilocytosis (manual Anisocytosis (manual) Microcytosis (manual) [place] Cells Sodium Potassium Chloride Carbon Dioxide Anion Gap BUN Creatinine Est GFR ( Amer) Est GFR (Non-Af Amer) POC Glucose (mg/dL) 292 H Random Glucose Calcium Phosphorus Magnesium Iron TIBC % Saturation Ferritin Total Bilirubin AST ALT Alkaline Phosphatase Total Protein Albumin Globulin Albumin/Globulin Ratio Vitamin B12 Folate Stool Leukocytes, Qual Negative C. difficile Ag & Toxin Negative Blood Type Antibody Screen Assessment & Plan (1) Anemia Assessment and Plan: Patient has chronic kidney disease, and iron indices are consistent with chronic disease (Fe 59, TIBC 180, ferritin 1360). Stool occult blood is negative (one specimen). Will schedule colonoscopy for tomorrow. Status: Acute
[2018-08-26 06:38] LABS: BASO % 0.3 % (0.0-2.0); EOS % 0.4 % (0.0-4.0); HEMOGLOBIN 7.7 g/dL (12.0-18.0); LYMPH # 0.6 K/uL (1.0-4.3); MEAN CELL VOLUME 94.3 fL (80.0-94.0); MEAN CORPUSCULAR HEMOGLOBIN 31.5 pg (27.0-31.0); MEAN CORPUSCULAR HGB CONC 33.5 g/dL (33.0-37.0); MEAN PLATELET VOLUME 7.9 fL (7.2-11.7); MONO # 0.7 K/uL (0.0-0.8); MONO % 8.6 % (0.0-10.0); NEUT # 6.7 K/uL (1.8-7.0); NEUT % 83.7 % (50.0-75.0); PLATELET COUNT 213 K/uL (130-400); RBC 2.43 Mil/uL (4.40-5.90); WHITE BLOOD COUNT 7.9 K/uL (4.8-10.8)
[2018-08-26 06:46] LABS: ALB/GLOB RATIO 1.1 (1.0-2.1); ALBUMIN 2.7 g/dL (3.5-5.0); CALCIUM 7.7 mg/dl (8.6-10.4)
[2018-08-26] MEDS: (Novolin R) Insulin Human Regular 100 units/ml vial SC SCH ×4 (07:30→21:48)
[2018-08-26] MEDS ORDERED: Etomidate 20 mg/10ml Inj IV ONE ×2 (08:04)
[2018-08-26] MEDS ORDERED: Propofol 10 mg/ml Inj (20 ML) ONE (08:04)
[2018-08-26] MEDS ORDERED: Lidocaine Hydrochloride 5 ML INJ ONE (08:04)
[2018-08-26] MEDS ORDERED: Potassium Chloride 20 mEq ER Tab PO ONE (08:07)
[2018-08-26] MEDS ORDERED: Simethicone 40 mg/0.6 ml Liquid (30 ml) ONE (08:38)
[2018-08-26 08:39] LABS: ANISOCYTOSIS SLIGHT; BANDS 1 % (0-2); HYPOCHROMIC SLIGHT; LYMPHOCYTE 5 % (20-40); MONOCYTE 5 % (0-10); NEUTROPHIL 89 % (50-75); PLATELET ESTIMATE NORMAL (NORMAL); TOTAL CELLS COUNTED 100
[2018-08-26] MEDS: Magnesium Sulfate 1 gm in D5W 1 GM/100 ML BAG IVPB SCH ×2 (10:10→11:16)
[2018-08-26] MEDS: MethylPREDNISolone 40 mg Vial IVP SCH (10:28)
[2018-08-26] MEDS: Piperacill/Tazo 2.25gm in Dex 2.25 GM/50 ML BAG IVPB SCH ×3 (10:55→16:40)
[2018-08-26] MEDS: Albuterol-Ipratrop 3 mg / 0.5 (3 ml) UD INH SCH ×3 (13:37→19:53)
--- NOTE | 2018-08-26 14:26 | CP.PCM.CON ---
History of Present Illness - History of Present Illness History of Present Illness: Reason for consultation: Shortness of breath, pulmonary fibrosis and lung infiltrate 82-year-old male with history of pulmonary fibrosis, COPD, pneumonia, end-stage renal disease on hemodialysis, hypertension who was admitted for gross hematuria and black tarry stools for the past 2 weeks. Also complaining of cough and congestion. Chest x-ray showed new left lower lung infiltrate. PMHx: HTN, HLD, DM, ESRD on HD (TTS), COPD, anemia PSHx: R inguinal hernia repair x2 Allergies: ASA--"stomach hurts" Social Hx: +former smoker, quit at age 42, 1-2ppd. No alcohol or illicit drug use Family Hx: noncontributory Review of Systems - Review of Systems All systems: reviewed and no additional remarkable complaints except (Shortness of breath and cough/hematuria/black tarry stools) Past Patient History - Infectious Disease Hx of Infectious Diseases: None - Past Medical History & Family History Past Medical History?: Yes Past Family History: Reviewed and not pertinent - Past Social History Smoking Status: Former Smoker Chewing Tobacco Use: No Cigar Use: No Alcohol: None Drugs: Denies Home Situation {Lives}: With Family - CARDIAC Hx Hypertension: Yes - PULMONARY Hx Chronic Obstructive Pulmonary Disease (COPD): Yes - NEUROLOGICAL Hx Neurological Disorder: No - HEENT Hx HEENT Problems: No Other/Comment: wears glasses - RENAL Hx Chronic Kidney Disease: Yes - ENDOCRINE/METABOLIC Hx Endocrine Disorders: Yes Hx Diabetes Mellitus Type 2: Yes - HEMATOLOGICAL/ONCOLOGICAL Hx Blood Disorders: Yes Hx Blood Transfusions: Yes - INTEGUMENTARY Hx Dermatological Problems: No - MUSCULOSKELETAL/RHEUMATOLOGICAL Hx Arthritis: Yes - GASTROINTESTINAL Hx Gastrointestinal Disorders: Yes Other/Comment: HERNIA - GENITOURINARY/GYNECOLOGICAL Hx Genitourinary Disorders: No - PSYCHIATRIC Hx Substance Use: No - SURGICAL HISTORY Hx Surgeries: Yes Hx Herniorrhaphy: Yes (RIGHT INGUINAL) - ANESTHESIA Hx Anesthesia: Yes Hx Anesthesia Reactions: No Hx Malignant Hyperthermia: No Meds Allergies/Adverse Reactions: Allergies Allergy/AdvReac Type Severity Reaction Status Date / Time aspirin Allergy Severe PAIN Verified 08/24/18 13:31 - Medications Medications: Current Medications Albuterol/Ipratropium (Duoneb 3 Mg/0.5 Mg (3 Ml) Ud) 3 ml INH RQ4 [facility] Last Admin: 08/26/18 13:37 Dose: 3 ml Calcitriol (Rocaltrol) 0.25 mcg PO DAILY [facility] Last Admin: 08/26/18 10:28 Dose: 0.25 mcg Dextrose (Dextrose 50% Inj) 0 ml IV STAT PRN; Protocol PRN Reason: Hypoglycemia Protocol Last Admin: 08/26/18 06:59 Dose: 50 ml Dextrose (Glutose 15) 0 gm PO ONCE PRN; Protocol PRN Reason: Hypoglycemia Protocol Fluticasone/Vilanterol (Breo Ellipta 100-25 Mcg Inh) 1 puff INH RQD [facility] Last Admin: 08/25/18 10:43 Dose: 1 puff Folic Acid (Folic Acid) 1 mg PO DAILY [facility] Last Admin: 08/26/18 10:28 Dose: 1 mg Glucagon (Glucagen Diagnostic Kit) 0 mg IM STAT PRN; Protocol PRN Reason: Hypoglycemia Protocol Dextrose (Dextrose 5% In Water 1000 Ml) 1,000 mls @ 0 mls/hr IV .Q0M PRN; Protocol PRN Reason: Hypoglycemia Protocol Piperacillin Sod/Tazobactam Sod (Zosyn 2.25 Gm Iv Premix) 2.25 gm in 50 mls @ 100 mls/hr IVPB Q8H [facility]; Protocol Last Admin: 08/26/18 10:55 Dose: 100 mls/hr Vancomycin HCl 1 gm/ Sodium (Chloride) 250 mls @ 166.7 mls/hr IVPB ONCE ONE; Protocol Stop: 08/26/18 14:29 Last Admin: 08/26/18 13:56 Dose: 166.7 mls/hr Insulin Human Regular (Novolin R) 0 unit SC ACHS [facility]; Protocol Last Admin: 08/26/18 12:23 Dose: Not Given Methylprednisolone (Solu-Medrol) 40 mg IVP DAILY [facility] Last Admin: 08/26/18 10:28 Dose: 40 mg Pantoprazole Sodium (Protonix Inj) 40 mg IVP DAILY [facility] Last Admin: 08/26/18 10:28 Dose: 40 mg Rosuvastatin Calcium (Crestor) 5 mg PO HS [facility] Last Admin: 08/25/18 21:16 Dose: 5 mg Physical Exam - Head Exam Head Exam: ATRAUMATIC, NORMOCEPHALIC - ENT Exam ENT Exam: Mucous Membranes Moist - Respiratory Exam Respiratory Exam: Rales, Rhonchi, Wheezes - Cardiovascular Exam Cardiovascular Exam: REGULAR RHYTHM - GI/Abdominal Exam GI & Abdominal Exam: Normal Bowel Sounds, Soft Results - Vital Signs Recent Vital Signs: Last Vital Signs Temp 98.2 F 08/26/18 10:09 Pulse 95 H 08/26/18 10:37 Resp 20 08/26/18 10:09 BP 130/66 08/26/18 10:09 Pulse Ox 96 08/26/18 10:09 - Labs Result Diagrams: 08/26/18 06:22 08/26/18 06:22 Labs: Laboratory Results - last 24 hr 08/25/18 08/25/18 08/26/18 15:03 20:01 06:22 WBC 7.9 RBC 2.43 L Hgb 7.7 L Hct 22.9 L MCV 94.3 H MCH 31.5 H MCHC 33.5 RDW 20.0 H Plt Count 213 MPV 7.9 Neut % (Auto) 83.7 H Lymph % (Auto) 7.0 L [place] % (Auto) 8.6 Eos % (Auto) 0.4 Baso % (Auto) 0.3 Neut # (Auto) 6.7 Lymph # (Auto) 0.6 L [place] # (Auto) 0.7 Eos # (Auto) 0.0 Baso # (Auto) 0.0 Neutrophils % (Manual) 89 H Band Neutrophils % 1 Lymphocytes % (Manual) 5 L Monocytes % (Manual) 5 Platelet Estimate Normal Hypochromasia (manual) Slight Anisocytosis (manual) Slight Sodium Potassium Chloride Carbon Dioxide Anion Gap BUN Creatinine Est GFR ( Amer) Est GFR (Non-Af Amer) POC Glucose (mg/dL) Random Glucose Calcium Phosphorus Magnesium Total Bilirubin AST ALT Alkaline Phosphatase Total Protein Albumin Globulin Albumin/Globulin Ratio Stool Occult Blood Negative Stool Leukocytes, Qual Negative C. difficile Ag & Toxin Negative 08/26/18 08/26/18 08/26/18 06:22 07:38 11:31 WBC RBC Hgb Hct MCV MCH MCHC RDW Plt Count MPV Neut % (Auto) Lymph % (Auto) [place] % (Auto) Eos % (Auto) Baso % (Auto) Neut # (Auto) Lymph # (Auto) [place] # (Auto) Eos # (Auto) Baso # (Auto) Neutrophils % (Manual) Band Neutrophils % Lymphocytes % (Manual) Monocytes % (Manual) Platelet Estimate Hypochromasia (manual) Anisocytosis (manual) Sodium 134 Potassium 3.3 L Chloride 98 Carbon Dioxide 33 H Anion Gap 6 L BUN 26 H Creatinine 2.2 H Est GFR ( Amer) 35 Est GFR (Non-Af Amer) 29 POC Glucose (mg/dL) 193 H 148 H Random Glucose 76 D Calcium 7.7 L Phosphorus 3.3 Magnesium 1.5 L Total Bilirubin 1.8 H AST 59 D ALT 23 Alkaline Phosphatase 57 Total Protein 5.1 L Albumin 2.7 L D Globulin 2.5 Albumin/Globulin Ratio 1.1 Stool Occult Blood Stool Leukocytes, Qual C. difficile Ag & Toxin Assessment & Plan (1) Pneumonia Status: Acute Comment: No left lower lung infiltrate. Continue antibiotics. Follow-up culture and sensitivity. Discontinue Brio Ellipta. Nebulizer treatment. Antitussive. Transfuse (2) Anemia Status: Acute (3) ESRD on dialysis Status: Acute (4) Gastrointestinal hemorrhage Status: Acute (5) Hematuria Status: Acute (6) Pulmonary fibrosis Status: Chronic
--- NOTE | 2018-08-26 14:27 | CP.PCM.PN ---
Subjective - Date & Time of Evaluation Date of Evaluation: 08/26/18 Time of Evaluation: 14:25 - Subjective Subjective: remains weak discussed with son- he would prefer maintenance hemodialysis for colonoscopy, cystoscopy next week BP stable Hg decreased- will rx with ESAs Objective - Vital Signs/Intake and Output Vital Signs (last 24 hours): Temp Pulse Resp BP Pulse Ox 98.2 F 95 H 20 130/66 96 08/26/18 10:09 08/26/18 10:37 08/26/18 10:09 08/26/18 10:09 08/26/18 10:09 Intake and Output: 08/26/18 08/26/18 06:59 18:59 Intake Total 1999 200 Balance 1999 200 - Medications Medications: Current Medications Albuterol/Ipratropium (Duoneb 3 Mg/0.5 Mg (3 Ml) Ud) 3 ml INH RQ4 [facility] Last Admin: 08/26/18 13:37 Dose: 3 ml Calcitriol (Rocaltrol) 0.25 mcg PO DAILY [facility] Last Admin: 08/26/18 10:28 Dose: 0.25 mcg Dextrose (Dextrose 50% Inj) 0 ml IV STAT PRN; Protocol PRN Reason: Hypoglycemia Protocol Last Admin: 08/26/18 06:59 Dose: 50 ml Dextrose (Glutose 15) 0 gm PO ONCE PRN; Protocol PRN Reason: Hypoglycemia Protocol Epoetin Justino (Procrit) 10,000 unit IV TTS [facility] Fluticasone/Vilanterol (Breo Ellipta 100-25 Mcg Inh) 1 puff INH RQD [facility] Last Admin: 08/25/18 10:43 Dose: 1 puff Folic Acid (Folic Acid) 1 mg PO DAILY [facility] Last Admin: 08/26/18 10:28 Dose: 1 mg Glucagon (Glucagen Diagnostic Kit) 0 mg IM STAT PRN; Protocol PRN Reason: Hypoglycemia Protocol Dextrose (Dextrose 5% In Water 1000 Ml) 1,000 mls @ 0 mls/hr IV .Q0M PRN; Protocol PRN Reason: Hypoglycemia Protocol Piperacillin Sod/Tazobactam Sod (Zosyn 2.25 Gm Iv Premix) 2.25 gm in 50 mls @ 100 mls/hr IVPB Q8H [facility]; Protocol Last Admin: 08/26/18 10:55 Dose: 100 mls/hr Vancomycin HCl 1 gm/ Sodium (Chloride) 250 mls @ 166.7 mls/hr IVPB ONCE ONE; Protocol Stop: 08/26/18 14:29 Last Admin: 08/26/18 13:56 Dose: 166.7 mls/hr Insulin Human Regular (Novolin R) 0 unit SC ACHS [facility]; Protocol Last Admin: 08/26/18 12:23 Dose: Not Given Methylprednisolone (Solu-Medrol) 40 mg IVP DAILY [facility] Last Admin: 08/26/18 10:28 Dose: 40 mg Pantoprazole Sodium (Protonix Inj) 40 mg IVP DAILY [facility] Last Admin: 08/26/18 10:28 Dose: 40 mg Rosuvastatin Calcium (Crestor) 5 mg PO HS [facility] Last Admin: 08/25/18 21:16 Dose: 5 mg - Labs Labs: 08/26/18 06:22 08/26/18 06:22 PT 10.7 SECONDS (9.7-12.2) 08/24/18 14:32 INR 1.0 08/24/18 14:32 APTT 27 SECONDS (21-34) 08/24/18 14:32 - Constitutional Appears: No Acute Distress, Confused, Chronically Ill - Head Exam Head Exam: ATRAUMATIC, NORMAL INSPECTION - Eye Exam Eye Exam: EOMI, Normal appearance - Neck Exam Neck Exam: Normal Inspection. absent: Tenderness - Respiratory Exam Respiratory Exam: Clear to Ausculation Bilateral, Rhonchi - Cardiovascular Exam Cardiovascular Exam: REGULAR RHYTHM, +S1 - GI/Abdominal Exam GI & Abdominal Exam: Soft. absent: Tenderness - Extremities Exam Extremities Exam: Normal Inspection. absent: Tenderness - Neurological Exam Neurological Exam: Awake, CN II-XII Intact - Skin Skin Exam: Dry, Warm Assessment and Plan (1) Hematuria Status: Acute (2) Anemia Status: Acute (3) ESRD on dialysis Status: Acute (4) Gastrointestinal hemorrhage Status: Acute (5) Bronchiectasis Status: Acute (6) COPD exacerbation Status: Acute - Assessment and Plan (Free Text) Plan: dialysis TTS start EPO colonoscopy cysto next week will need AV access
--- NOTE | 2018-08-26 18:46 | CP.PCM.PN ---
<Leroy Reed - Last Filed: 08/26/18 18:43> Subjective - Date & Time of Evaluation Date of Evaluation: 08/26/18 Time of Evaluation: 18:43 - Subjective Subjective: PGY-1 Medicine Progress Note for Dr. Dias Patient seen and examined this AM at bedside, in no acute distress, s/p colonoscopy. No acute overnight events reported. Stools continue to be loose and black per patient. Hematuria still noted. Peritoneal dialysis catheter was inserted about a month ago, denies any pain. No fevers/chills, chest pain, palpitations, acute sob, abdominal pain, n/v. Objective - Vital Signs/Intake and Output Vital Signs (last 24 hours): Temp Pulse Resp BP Pulse Ox 98.3 F 95 H 20 112/50 L 97 08/26/18 16:00 08/26/18 16:20 08/26/18 16:00 08/26/18 16:00 08/26/18 16:00 Intake and Output: 08/26/18 08/26/18 06:59 18:59 Intake Total 1999 1180 Balance 1999 1180 - Medications Medications: Current Medications Albuterol/Ipratropium (Duoneb 3 Mg/0.5 Mg (3 Ml) Ud) 3 ml INH RQ4 [facility] Last Admin: 08/26/18 15:36 Dose: 3 ml Calcitriol (Rocaltrol) 0.25 mcg PO DAILY [facility] Last Admin: 08/26/18 10:28 Dose: 0.25 mcg Dextrose (Dextrose 50% Inj) 0 ml IV STAT PRN; Protocol PRN Reason: Hypoglycemia Protocol Last Admin: 08/26/18 06:59 Dose: 50 ml Dextrose (Glutose 15) 0 gm PO ONCE PRN; Protocol PRN Reason: Hypoglycemia Protocol Epoetin Justino (Procrit) 10,000 unit IV TTS [facility] Folic Acid (Folic Acid) 1 mg PO DAILY [facility] Last Admin: 08/26/18 10:28 Dose: 1 mg Glucagon (Glucagen Diagnostic Kit) 0 mg IM STAT PRN; Protocol PRN Reason: Hypoglycemia Protocol Dextrose (Dextrose 5% In Water 1000 Ml) 1,000 mls @ 0 mls/hr IV .Q0M PRN; Protocol PRN Reason: Hypoglycemia Protocol Piperacillin Sod/Tazobactam Sod (Zosyn 2.25 Gm Iv Premix) 2.25 gm in 50 mls @ 100 mls/hr IVPB Q8H NEW; Protocol Last Admin: 08/26/18 10:55 Dose: 100 mls/hr Vancomycin HCl/Dextrose (Vancocin) 500 mg in 100 mls @ 67 mls/hr IVPB TTS [facility]; Protocol Stop: 08/26/18 20:00 Insulin Human Regular (Novolin R) 0 unit SC ACHS NEW; Protocol Last Admin: 08/26/18 12:23 Dose: Not Given Methylprednisolone (Solu-Medrol) 40 mg IVP DAILY [facility] Last Admin: 08/26/18 10:28 Dose: 40 mg Pantoprazole Sodium (Protonix Inj) 40 mg IVP DAILY [facility] Last Admin: 08/26/18 10:28 Dose: 40 mg Rosuvastatin Calcium (Crestor) 5 mg PO HS [facility] Last Admin: 08/25/18 21:16 Dose: 5 mg - Labs Labs: 08/26/18 06:22 08/26/18 06:22 PT 10.7 SECONDS (9.7-12.2) 08/24/18 14:32 INR 1.0 08/24/18 14:32 APTT 27 SECONDS (21-34) 08/24/18 14:32 - Constitutional Appears: No Acute Distress, Chronically Ill - Head Exam Head Exam: ATRAUMATIC, NORMAL INSPECTION, NORMOCEPHALIC - Eye Exam Eye Exam: EOMI, Normal appearance, PERRL Pupil Exam: NORMAL ACCOMODATION - ENT Exam ENT Exam: Mucous Membranes Moist, Normal Exam - Neck Exam Neck Exam: Full ROM, Normal Inspection - Respiratory Exam Respiratory Exam: Decreased Breath Sounds, Rhonchi. absent: Accessory Muscle Use, Respiratory Distress - Cardiovascular Exam Cardiovascular Exam: REGULAR RHYTHM, +S1, +S2 - GI/Abdominal Exam GI & Abdominal Exam: Soft, Normal Bowel Sounds. absent: Distended, Firm, Guarding, Rigid, Tenderness, Rebound - Extremities Exam Extremities Exam: Full ROM, Normal Capillary Refill, Normal Inspection. absent: Calf Tenderness, Pedal Edema - Back Exam Back Exam: NORMAL INSPECTION - Neurological Exam Neurological Exam: Alert, Awake, Oriented x3 - Skin Skin Exam: Dry, Intact, Normal Color, Warm Assessment and Plan - Assessment and Plan (Free Text) Assessment: 82 year old male with past medical history of HTN, HLD, DM, ESRD on HD TTS, COPD, and chronic anemia presenting to ED for gross hematuria and black watery stools for the past 2 weeks. Plan: Hematuria Bilateral Nephrolithiasis -likely 2/2 b/l nephrolithiasis -s/p 1 unit pRBC -Hb 7.7 (08/26), continue to monitor and transfuse prn -UA 3+ blood, 409 RBC -Urine Cx: no growth -Blood culture x1: gram positive cocci -f/u Urology recs (Dr. Emerson) -EKG: sinus tachycardia, nonspecific T wave abnormality -CT abdomen/pelvis (08/24): B/L nephrolithiasis. Gallbladder distention with cholelithiasis. RLQ pelvic drainage tube catheter in place with small amount of free fluid in pelvic space. Colonic diverticulosis. RLL consolidation with exten sive bibasilar bronchiectasis. Black watery stools, r/o GI bleed -no new episodes of overt bloody BM noted -occult stool x 2 negative -fecal leukocyte negative -f/u ova and parasite, c diff, stool cx -GI (Dr. Bell) recs appreciated -colonoscopy report (08/26): internal hemorrhoids moderate and Grade I. Multiple diverticula in sigmoid and descending colon. New L lobe Infiltrate -Pulmonology (Dr. Post) recs appreciated -nebulizer treatment -antitussives -d/c breo ellipta -BCx x 1: gram positive cocci -will start Vancomycin IV TTS after HD -c/w zosyn renally dosed ESRD on HD (TTS) -next HD tomorrow -Nephrology (Dr. Dutton) on case -calcitriol 0.25 mcg PO daily -folic acid 1 mg PO daily Hx of COPD Pulmonary Fibrosis -CXR (08/24): Resolving opacity at R base, r/o PNA at L base. Bibasilar atelectasis, possible v small R pleural effusion -duonebs q4 new -solumedrol 40 daily new DM -home meds held -ISS low -accuchecks achs -hypoglycemic protocol Hx HTN -Norvasc 5 mg PO daily Hx of HLD -Crestor 5 mg PO HS NEW Anemia of chronic disease -2/2 underlying renal failure -s/p 1 unit pRBC, continue to monitor PPx, Diet, Disposition -DVT ppx: scds, oral AC held given acute bleeding -GI ppx: protonix 40 IV daily -Diet: Liquid diet -PT on case Case discussed with Dr. Arun Reed DO, PGY-1 <Sabino Dias - Last Filed: 08/27/18 18:15> Objective - Vital Signs/Intake and Output Vital Signs (last 24 hours): Temp Pulse Resp BP Pulse Ox 98.1 F 89 18 136/83 94 L 08/27/18 17:28 08/27/18 17:28 08/27/18 17:28 08/27/18 17:28 08/27/18 17:28 Intake and Output: 08/27/18 08/27/18 06:59 18:59 Intake Total 450 Output Total 175 Balance -175 450 - Medications Medications: Current Medications Albuterol/Ipratropium (Duoneb 3 Mg/0.5 Mg (3 Ml) Ud) 3 ml INH RQ4 [facility] Last Admin: 08/27/18 11:07 Dose: 3 ml Benzonatate (Tessalon Perles) 100 mg PO TID [facility] Last Admin: 08/27/18 13:25 Dose: 100 mg Calcitriol (Rocaltrol) 0.25 mcg PO DAILY [facility] Last Admin: 08/27/18 09:00 Dose: 0.25 mcg Dextrose (Dextrose 50% Inj) 0 ml IV STAT PRN; Protocol PRN Reason: Hypoglycemia Protocol Last Admin: 08/26/18 06:59 Dose: 50 ml Dextrose (Glutose 15) 0 gm PO ONCE PRN; Protocol PRN Reason: Hypoglycemia Protocol Epoetin Justino (Procrit) 10,000 unit IV TTS [facility] Last Admin: 08/27/18 15:53 Dose: 10,000 unit Folic Acid (Folic Acid) 1 mg PO DAILY [facility] Last Admin: 08/27/18 09:00 Dose: 1 mg Glucagon (Glucagen Diagnostic Kit) 0 mg IM STAT PRN; Protocol PRN Reason: Hypoglycemia Protocol Dextrose (Dextrose 5% In Water 1000 Ml) 1,000 mls @ 0 mls/hr IV .Q0M PRN; Protocol PRN Reason: Hypoglycemia Protocol Piperacillin Sod/Tazobactam Sod (Zosyn 2.25 Gm Iv Premix) 2.25 gm in 50 mls @ 100 mls/hr IVPB Q8H NEW; Protocol Last Admin: 08/27/18 08:46 Dose: 100 mls/hr Vancomycin HCl 500 mg/ Sodium (Chloride) 100 mls @ 67 mls/hr IVPB TTS NEW; Pr otocol Last Admin: 08/26/18 19:33 Dose: 67 mls/hr Insulin Human Regular (Novolin R) 0 unit SC ACHS NEW; Protocol Last Admin: 08/27/18 12:53 Dose: 1 units Methylprednisolone (Solu-Medrol) 40 mg IVP DAILY [facility] Last Admin: 08/27/18 09:00 Dose: 40 mg Pantoprazole Sodium (Protonix Inj) 40 mg IVP DAILY [facility] Last Admin: 08/27/18 09:00 Dose: 40 mg Rosuvastatin Calcium (Crestor) 5 mg PO HS [facility] Last Admin: 08/26/18 21:45 Dose: 5 mg - Labs Labs: 08/27/18 07:27 08/27/18 07:27 PT 10.7 SECONDS (9.7-12.2) 08/24/18 14:32 INR 1.0 08/24/18 14:32 APTT 27 SECONDS (21-34) 08/24/18 14:32 Attending/Attestation - Attestation I have personally seen and examined this patient.: Yes I have fully participated in the care of the patient.: Yes I have reviewed all pertinent clinical information, including history, physical exam and plan: Yes Notes (Text): Seen and examined. This is a patient came with hematuria and black stool had a colonoscopy which shows diverticulosis without bleeding. Urologist is planning for cystoscopy on Wednesday. Patient has pulmonary fibrosis and CT chest shows right lower lobe pneumonia on Zosyn. Will continue Solu-Medrol and DuoNeb. Started on Vanco renally dose for Coagulase-negative bacteremia. We will get infectious disease consult. Continue dialysis as per sales analyst. Patient has a right chest permacath and peritoneal dialysis catheter.We will follow up with Dr dutton .
[2018-08-26] MEDS ORDERED: Vancomycin 500mg/D5W 100 ml 500 MG/100 ML BAG IVPB SCH (19:00)
[2018-08-26] MEDS ORDERED: VANCOMYCIN HYDROCHLORIDE IVPB SCH (19:00)
--- NOTE | 2018-08-26 23:43 | CP.PCM.PN ---
<AddyKang - Last Filed: 08/27/18 00:13> Subjective - Date & Time of Evaluation Date of Evaluation: 08/27/18 Time of Evaluation: 00:13 - Subjective Subjective: PGY-1 Medicine Progress Note for Hospitalist Patient seen and examined at bedside. No acute overnight events. He reports that he is still having black watery stools. He denies hematuria. Denies fever, chills, chest pain, palpitations, acute sob, abdominal pain, n/v. He states that he feels his breathing is improved, but he still has a cough. Objective - Vital Signs/Intake and Output Vital Signs (last 24 hours): Temp Pulse Resp BP Pulse Ox 98.3 F 95 H 20 112/50 L 97 08/26/18 16:00 08/26/18 16:20 08/26/18 16:00 08/26/18 16:00 08/26/18 16:00 Intake and Output: 08/26/18 08/27/18 18:59 06:59 Intake Total 1180 Balance 1180 - Medications Medications: Current Medications Albuterol/Ipratropium (Duoneb 3 Mg/0.5 Mg (3 Ml) Ud) 3 ml INH RQ4 [facility] Last Admin: 08/26/18 19:53 Dose: 3 ml Calcitriol (Rocaltrol) 0.25 mcg PO DAILY [facility] Last Admin: 08/26/18 10:28 Dose: 0.25 mcg Dextrose (Dextrose 50% Inj) 0 ml IV STAT PRN; Protocol PRN Reason: Hypoglycemia Protocol Last Admin: 08/26/18 06:59 Dose: 50 ml Dextrose (Glutose 15) 0 gm PO ONCE PRN; Protocol PRN Reason: Hypoglycemia Protocol Epoetin Justino (Procrit) 10,000 unit IV TTS [facility] Folic Acid (Folic Acid) 1 mg PO DAILY [facility] Last Admin: 08/26/18 10:28 Dose: 1 mg Glucagon (Glucagen Diagnostic Kit) 0 mg IM STAT PRN; Protocol PRN Reason: Hypoglycemia Protocol Dextrose (Dextrose 5% In Water 1000 Ml) 1,000 mls @ 0 mls/hr IV .Q0M PRN; Protocol PRN Reason: Hypoglycemia Protocol Piperacillin Sod/Tazobactam Sod (Zosyn 2.25 Gm Iv Premix) 2.25 gm in 50 mls @ 100 mls/hr IVPB Q8H NEW; Protocol Last Admin: 08/26/18 16:40 Dose: 100 mls/hr Vancomycin HCl 500 mg/ Sodium (Chloride) 100 mls @ 67 mls/hr IVPB TTS NEW; Protocol Last Admin: 08/26/18 19:33 Dose: 67 mls/hr Insulin Human Regular (Novolin R) 0 unit SC ACHS NEW; Protocol Last Admin: 08/26/18 21:48 Dose: 2 units Methylprednisolone (Solu-Medrol) 40 mg IVP DAILY [facility] Last Admin: 08/26/18 10:28 Dose: 40 mg Pantoprazole Sodium (Protonix Inj) 40 mg IVP DAILY [facility] Last Admin: 08/26/18 10:28 Dose: 40 mg Rosuvastatin Calcium (Crestor) 5 mg PO HS [facility] Last Admin: 08/26/18 21:45 Dose: 5 mg - Labs Labs: 08/26/18 06:22 08/26/18 06:22 PT 10.7 SECONDS (9.7-12.2) 08/24/18 14:32 INR 1.0 08/24/18 14:32 APTT 27 SECONDS (21-34) 08/24/18 14:32 - Additional Findings Additional findings: - Constitutional Appears: No Acute Distress, Chronically Ill - Head Exam Head Exam: ATRAUMATIC, NORMAL INSPECTION, NORMOCEPHALIC - Eye Exam Eye Exam: EOMI, Normal appearance, PERRL Pupil Exam: NORMAL ACCOMODATION - ENT Exam ENT Exam: Mucous Membranes Moist, Normal Exam - Neck Exam Neck Exam: Full ROM, Normal Inspection - Respiratory Exam Respiratory Exam: Decreased Breath Sounds. absent: Rhonchi, Accessory Muscle Use, Respiratory Distress - Cardiovascular Exam Cardiovascular Exam: REGULAR RHYTHM, +S1, +S2 - GI/Abdominal Exam GI & Abdominal Exam: Soft, Normal Bowel Sounds. absent: Distended, Firm, Guarding, Rigid, Tenderness, Rebound - Extremities Exam Extremities Exam: Full ROM, Normal Capillary Refill, Normal Inspection. absent: Calf Tenderness, Pedal Edema - Back Exam Back Exam: NORMAL INSPECTION - Neurological Exam Neurological Exam: Alert, Awake, Oriented x3 - Skin Skin Exam: Dry, Intact, Normal Color, Warm Assessment and Plan - Assessment and Plan (Free Text) Assessment: 82 year old male with past medical history of HTN, HLD, DM, ESRD on HD TTS, COPD, and chronic anemia presenting to ED for gross hematuria and black watery stools for the past 2 weeks. Plan: Hematuria Bilateral Nephrolithiasis -likely 2/2 b/l nephrolithiasis -s/p 1 unit pRBC -Hb 7.7 (08/26), continue to monitor and transfuse prn -Urine Cx: no growth -Blood culture x1: gram positive cocci -f/u Urology recs (Dr. Emerson) -EKG: sinus tachycardia, nonspecific T wave abnormality -CT abdomen/pelvis (08/24): B/L nephrolithiasis. Gallbladder distention with cholelithiasis. RLQ pelvic drainage tube catheter in place with small amount of free fluid in pelvic space. Colonic diverticulosis. RLL consolidation with extensive bibasilar bronchiectasis. Black watery stools, r/o GI bleed -no new episodes of overt bloody BM noted -occult stool x 2 negative -fecal leukocyte negative -ova and parasite is negative, - c diff toxin negative - f/u stool cx -GI (Dr. Bell) recs appreciated -colonoscopy report (08/26): internal hemorrhoids moderate and Grade I. Multiple diverticula in sigmoid and descending colon. New L lobe Infiltrate -Pulmonology (Dr. Post) recs appreciated -nebulizer treatment -Tessalon perrles added -BCx x 1: gram positive cocci -will start Vancomycin IV TTS after HD -c/w zosyn renally dosed ESRD on HD (TTS) -next HD today -Nephrology (Dr. Dutton) on case -calcitriol 0.25 mcg PO daily -folic acid 1 mg PO daily Hx of COPD Pulmonary Fibrosis -CXR (08/24): Resolving opacity at R base, r/o PNA at L base. Bibasilar atelectasis, possible v small R pleural effusion -duonebs q4 new -solumedrol 40 daily new DM -home meds held -ISS low -accuchecks achs -hypoglycemic protocol Hx HTN -Norvasc 5 mg PO daily Hx of HLD -Crestor 5 mg PO HS NEW Anemia of chronic disease -2/2 underlying renal failure -s/p 1 unit pRBC, continue to monitor Will transfuse PRN PPx, Diet, Disposition -DVT ppx: scds, oral AC held given acute bleeding -GI ppx: protonix 40 IV daily -Diet: Liquid diet -PT on case <ArunAngelviridiana - Last Filed: 08/27/18 18:05> Objective - Vital Signs/Intake and Output Vital Signs (last 24 hours): Temp Pulse Resp BP Pulse Ox 98.1 F 89 18 136/83 94 L 08/27/18 17:28 08/27/18 17:28 08/27/18 17:28 08/27/18 17:28 08/27/18 17:28 Intake and Output: 08/27/18 08/27/18 06:59 18:59 Intake Total 450 Output Total 175 Balance -175 450 - Medications Medications: Current Medications Albuterol/Ipratropium (Duoneb 3 Mg/0.5 Mg (3 Ml) Ud) 3 ml INH RQ4 [facility] Last Admin: 08/27/18 11:07 Dose: 3 ml Benzonatate (Tessalon Perles) 100 mg PO TID [facility] Last Admin: 08/27/18 13:25 Dose: 100 mg Calcitriol (Rocaltrol) 0.25 mcg PO DAILY [facility] Last Admin: 08/27/18 09:00 Dose: 0.25 mcg Dextrose (Dextrose 50% Inj) 0 ml IV STAT PRN; Protocol PRN Reason: Hypoglycemia Protocol Last Admin: 08/26/18 06:59 Dose: 50 ml Dextrose (Glutose 15) 0 gm PO ONCE PRN; Protocol PRN Reason: Hypoglycemia Protocol Epoetin Justino (Procrit) 10,000 unit IV TTS [facility] Last Admin: 08/27/18 15:53 Dose: 10,000 unit Folic Acid (Folic Acid) 1 mg PO DAILY [facility] Last Admin: 08/27/18 09:00 Dose: 1 mg Glucagon (Glucagen Diagnostic Kit) 0 mg IM STAT PRN; Protocol PRN Reason: Hypoglycemia Protocol Dextrose (Dextrose 5% In Water 1000 Ml) 1,000 mls @ 0 mls/hr IV .Q0M PRN; Protocol PRN Reason: Hypoglycemia Protocol Piperacillin Sod/Tazobactam Sod (Zosyn 2.25 Gm Iv Premix) 2.25 gm in 50 mls @ 100 mls/hr IVPB Q8H NEW; Protocol Last Admin: 08/27/18 08:46 Dose: 100 mls/hr Vancomycin HCl 500 mg/ Sodium (Chloride) 100 mls @ 67 mls/hr IVPB TTS [facility]; Protocol Last Admin: 08/26/18 19:33 Dose: 67 mls/hr Insulin Human Regular (Novolin R) 0 unit SC ACHS [facility]; Protocol Last Admin: 08/27/18 12:53 Dose: 1 units Methylprednisolone (Solu-Medrol) 40 mg IVP DAILY [facility] Last Admin: 08/27/18 09:00 Dose: 40 mg Pantoprazole Sodium (Protonix Inj) 40 mg IVP DAILY [facility] Last Admin: 08/27/18 09:00 Dose: 40 mg Rosuvastatin Calcium (Crestor) 5 mg PO HS [facility] Last Admin: 08/26/18 21:45 Dose: 5 mg - Labs Labs: 08/27/18 07:27 08/27/18 07:27 PT 10.7 SECONDS (9.7-12.2) 08/24/18 14:32 INR 1.0 08/24/18 14:32 APTT 27 SECONDS (21-34) 08/24/18 14:32 Attending/Attestation - Attestation I have personally seen and examined this patient.: Yes I have fully participated in the care of the patient.: Yes I have reviewed all pertinent clinical information, including history, physical exam and plan: Yes Notes (Text): Patient was seen and examined this morning. Sitting on bed without shortness of breath. Feeling little better. Denies hematuria, had dark stool. Status post colonoscopy with diverticular disease without bleeding. Seen by informaticist today. Planning for cystoscopy tomorrow. Patient had positive blood culture staph coagulase-negative in the blood drawn on . He is getting vancomycin. We will follow with infectious disease. Repeat culture no growth for 24 hours. Patient has severe pulmonary fibrosis on Solu-Medrol and on Zosyn for right lower lobe pneumonia. He was seen by Dr. Post today. His hemoglobin 7.6. We will monitor hemoglobin. Stool for CD toxin negative spoke to patient's son at bedside yesterday evening..
[2018-08-27] MEDS: Albuterol-Ipratrop 3 mg / 0.5 (3 ml) UD INH SCH ×6 (00:08→19:32)
[2018-08-27] MEDS: Piperacill/Tazo 2.25gm in Dex 2.25 GM/50 ML BAG IVPB SCH ×4 (00:50→23:51)
[2018-08-27 07:44] LABS: BASO % 0.1 % (0.0-2.0); HEMOGLOBIN 7.6 g/dL (12.0-18.0); LYMPH # 0.4 K/uL (1.0-4.3); LYMPH % 5.5 % (20.0-40.0); MEAN CELL VOLUME 96.1 fL (80.0-94.0); MEAN CORPUSCULAR HEMOGLOBIN 31.7 pg (27.0-31.0); MEAN PLATELET VOLUME 8.4 fL (7.2-11.7); MONO # 0.5 K/uL (0.0-0.8); MONO % 6.3 % (0.0-10.0); NEUT % 88.1 % (50.0-75.0); PLATELET COUNT 216 K/uL (130-400); RBC 2.39 Mil/uL (4.40-5.90); RED CELL DISTRIBUTION WIDTH 20.4 % (11.5-14.5); WHITE BLOOD COUNT 7.9 K/uL (4.8-10.8)
[2018-08-27 08:12] LABS: ALB/GLOB RATIO 1.2 (1.0-2.1); ALBUMIN 2.9 g/dL (3.5-5.0); CALCIUM 8.3 mg/dl (8.6-10.4)
[2018-08-27] MEDS: (Novolin R) Insulin Human Regular 100 units/ml vial SC SCH ×4 (08:46→22:42)
[2018-08-27] MEDS: MethylPREDNISolone 40 mg Vial IVP SCH (09:00)
[2018-08-27 09:13] LABS: BANDS 2 % (0-2); LYMPHOCYTE 6 % (20-40); TOTAL CELLS COUNTED 100
[2018-08-27 09:14] LABS: ANISOCYTOSIS MODERATE; MICROCYTOSIS SLIGHT; MONOCYTE 6 % (0-10); NEUTROPHIL 86 % (50-75); PLATELET ESTIMATE NORMAL (NORMAL); POIKILOCYTOSIS SLIGHT
[2018-08-27 09:15] LABS: OVALOCYTES SLIGHT; TEARDROP CELLS SLIGHT
[2018-08-27] MEDS ORDERED: EPOETIN ALFA 10,000 UNIT/ML ML IV SCH (10:00)
--- NOTE | 2018-08-27 10:43 | CP.PCM.PN ---
Subjective - Date & Time of Evaluation Date of Evaluation: 08/27/18 Time of Evaluation: 10:40 - Subjective Subjective: feels better afebrile now no new overt bleeding s/p blood transfusion 1 u prbcs Objective - Vital Signs/Intake and Output Vital Signs (last 24 hours): Temp Pulse Resp BP Pulse Ox 98.4 F 88 18 137/63 96 08/27/18 07:00 08/27/18 07:34 08/27/18 07:00 08/27/18 07:00 08/27/18 07:00 Intake and Output: 08/27/18 08/27/18 06:59 18:59 Output Total 175 Balance -175 - Medications Medications: Current Medications Albuterol/Ipratropium (Duoneb 3 Mg/0.5 Mg (3 Ml) Ud) 3 ml INH RQ4 [facility] Last Admin: 08/27/18 03:26 Dose: 3 ml Benzonatate (Tessalon Perles) 100 mg PO TID [facility] Last Admin: 08/27/18 09:07 Dose: 100 mg Calcitriol (Rocaltrol) 0.25 mcg PO DAILY [facility] Last Admin: 08/27/18 09:00 Dose: 0.25 mcg Dextrose (Dextrose 50% Inj) 0 ml IV STAT PRN; Protocol PRN Reason: Hypoglycemia Protocol Last Admin: 08/26/18 06:59 Dose: 50 ml Dextrose (Glutose 15) 0 gm PO ONCE PRN; Protocol PRN Reason: Hypoglycemia Protocol Epoetin Justino (Procrit) 10,000 unit IV TTS [facility] Folic Acid (Folic Acid) 1 mg PO DAILY [facility] Last Admin: 08/27/18 09:00 Dose: 1 mg Glucagon (Glucagen Diagnostic Kit) 0 mg IM STAT PRN; Protocol PRN Reason: Hypoglycemia Protocol Dextrose (Dextrose 5% In Water 1000 Ml) 1,000 mls @ 0 mls/hr IV .Q0M PRN; Protocol PRN Reason: Hypoglycemia Protocol Piperacillin Sod/Tazobactam Sod (Zosyn 2.25 Gm Iv Premix) 2.25 gm in 50 mls @ 100 mls/hr IVPB Q8H [facility]; Protocol Last Admin: 08/27/18 08:46 Dose: 100 mls/hr Vancomycin HCl 500 mg/ Sodium (Chloride) 100 mls @ 67 mls/hr IVPB TTS [facility]; Protocol Last Admin: 08/26/18 19:33 Dose: 67 mls/hr Insulin Human Regular (Novolin R) 0 unit SC ACHS [facility]; Protocol Last Admin: 08/27/18 08:46 Dose: 1 units Methylprednisolone (Solu-Medrol) 40 mg IVP DAILY [facility] Last Admin: 08/27/18 09:00 Dose: 40 mg Pantoprazole Sodium (Protonix Inj) 40 mg IVP DAILY [facility] Last Admin: 08/27/18 09:00 Dose: 40 mg Rosuvastatin Calcium (Crestor) 5 mg PO HS [facility] Last Admin: 08/26/18 21:45 Dose: 5 mg - Labs Labs: 08/27/18 07:27 08/27/18 07:27 PT 10.7 SECONDS (9.7-12.2) 08/24/18 14:32 INR 1.0 08/24/18 14:32 APTT 27 SECONDS (21-34) 08/24/18 14:32 - Constitutional Appears: No Acute Distress, Chronically Ill - Head Exam Head Exam: ATRAUMATIC, NORMAL INSPECTION - Eye Exam Eye Exam: EOMI, Normal appearance - Neck Exam Neck Exam: Normal Inspection. absent: Tenderness - Respiratory Exam Respiratory Exam: Clear to Ausculation Bilateral, NORMAL BREATHING PATTERN - Cardiovascular Exam Cardiovascular Exam: REGULAR RHYTHM, +S1 - GI/Abdominal Exam GI & Abdominal Exam: Soft. absent: Tenderness - Extremities Exam Extremities Exam: Normal Inspection. absent: Tenderness - Neurological Exam Neurological Exam: Awake, CN II-XII Intact - Skin Skin Exam: Dry, Warm Assessment and Plan (1) Hematuria Status: Acute (2) Anemia Status: Acute (3) ESRD on dialysis Status: Acute (4) Gastrointestinal hemorrhage Status: Acute (5) Bronchiectasis Status: Acute (6) COPD exacerbation Status: Acute - Assessment and Plan (Free Text) Plan: dialysis today Then TTS dialysis await colonoscopy await cysto will need AV access monitor for bleeding
--- NOTE | 2018-08-27 11:46 | CP.PCM.PN ---
Subjective - Date & Time of Evaluation Date of Evaluation: 08/27/18 Time of Evaluation: 11:45 - Subjective Subjective: f/u R bleed. Covering Dr Bell Reports still blood per rectum- less. + hematuria. Denies CP, SOB, fever, chills, SZ, LOC, SAN, cough, melena Objective - Vital Signs/Intake and Output Vital Signs (last 24 hours): Temp Pulse Resp BP Pulse Ox 98.4 F 88 18 137/63 96 08/27/18 07:00 08/27/18 07:34 08/27/18 07:00 08/27/18 07:00 08/27/18 07:00 Intake and Output: 08/27/18 08/27/18 06:59 18:59 Output Total 175 Balance -175 - Medications Medications: Current Medications Albuterol/Ipratropium (Duoneb 3 Mg/0.5 Mg (3 Ml) Ud) 3 ml INH RQ4 [facility] Last Admin: 08/27/18 11:07 Dose: 3 ml Benzonatate (Tessalon Perles) 100 mg PO TID [facility] Last Admin: 08/27/18 09:07 Dose: 100 mg Calcitriol (Rocaltrol) 0.25 mcg PO DAILY [facility] Last Admin: 08/27/18 09:00 Dose: 0.25 mcg Dextrose (Dextrose 50% Inj) 0 ml IV STAT PRN; Protocol PRN Reason: Hypoglycemia Protocol Last Admin: 08/26/18 06:59 Dose: 50 ml Dextrose (Glutose 15) 0 gm PO ONCE PRN; Protocol PRN Reason: Hypoglycemia Protocol Epoetin Justino (Procrit) 10,000 unit IV TTS [facility] Folic Acid (Folic Acid) 1 mg PO DAILY [facility] Last Admin: 08/27/18 09:00 Dose: 1 mg Glucagon (Glucagen Diagnostic Kit) 0 mg IM STAT PRN; Protocol PRN Reason: Hypoglycemia Protocol Dextrose (Dextrose 5% In Water 1000 Ml) 1,000 mls @ 0 mls/hr IV .Q0M PRN; Protocol PRN Reason: Hypoglycemia Protocol Piperacillin Sod/Tazobactam Sod (Zosyn 2.25 Gm Iv Premix) 2.25 gm in 50 mls @ 100 mls/hr IVPB Q8H [facility]; Protocol Last Admin: 08/27/18 08:46 Dose: 100 mls/hr Vancomycin HCl 500 mg/ Sodium (Chloride) 100 mls @ 67 mls/hr IVPB TTS [facility]; Protocol Last Admin: 08/26/18 19:33 Dose: 67 mls/hr Insulin Human Regular (Novolin R) 0 unit SC ACHS [facility]; Protocol Last Admin: 08/27/18 08:46 Dose: 1 units Methylprednisolone (Solu-Medrol) 40 mg IVP DAILY [facility] Last Admin: 08/27/18 09:00 Dose: 40 mg Pantoprazole Sodium (Protonix Inj) 40 mg IVP DAILY [facility] Last Admin: 08/27/18 09:00 Dose: 40 mg Rosuvastatin Calcium (Crestor) 5 mg PO HS [facility] Last Admin: 08/26/18 21:45 Dose: 5 mg - Labs Labs: 08/27/18 07:27 08/27/18 07:27 PT 10.7 SECONDS (9.7-12.2) 08/24/18 14:32 INR 1.0 08/24/18 14:32 APTT 27 SECONDS (21-34) 08/24/18 14:32 - Constitutional Appears: Well - Respiratory Exam Respiratory Exam: Clear to Ausculation Bilateral - Cardiovascular Exam Cardiovascular Exam: RRR - GI/Abdominal Exam GI & Abdominal Exam: Soft, Normal Bowel Sounds. absent: Tenderness - Extremities Exam Extremities Exam: absent: Calf Tenderness - Neurological Exam Neurological Exam: Alert, Awake, Oriented x3 Assessment and Plan (1) Diverticulosis large intestine w/o perforation or abscess w/bleeding Status: Acute (2) Anemia Status: Acute (3) ESRD on dialysis Status: Acute (4) Gastrointestinal hemorrhage Assessment & Plan: diverticulosis. Hb staying around 7. P- check bleeding, Hb. Getting echo today Status: Acute (5) Hematuria Status: Acute (6) Anemia Status: Acute (7) COPD (chronic obstructive pulmonary disease) Status: Acute
--- NOTE | 2018-08-27 14:07 | CARD ---
APPROVED REPORT Date of service: 08/27/2018 EXAM: Two-dimensional and M-mode echocardiogram with Doppler and color Doppler. Other Information Quality : GoodRhythm : INDICATION COPD R/O VEGETATION 2D DIMENSIONS IVSd1.4 (0.7-1.1cm)Aortic Root (2D)3.6 (2.0-3.7cm) LVDd3.7 (3.9-5.9cm)LVOT Diameter1.9 (1.8-2.4cm) PWd1.3 (0.7-1.1cm)LVDs2.8 (2.5-4.0cm) FS (%) 23.2 %LVEF (%)47.3 (>50%) LVEF (Harden's)62.97 % M-Mode DIMENSIONS Left Atrium (MM)4.10 (2.5-4.0cm)Aortic Root3.26 (2.2-3.7cm) Aortic Cusp Exc.2.05 (1.5-2.0cm) Mitral Valve MV E Cvqqdymh07.4cm/sMV A Syqmioyv206.8cm/sE/A ratio0.7 TDI Lateral E' Peak V6.55cm/sMedial E' Peak V6.67cm/sE/Lateral E'12.3 E/Medial E'12.1 Pulmonary Valve PV Peak Hjhckwsu42.7cm/sPV Peak Grad.1mmHg Tricuspid Valve TR Peak Jzpyilza236lx/sTR Peak Gr.[id number] LEFT VENTRICLE The left ventricle is normal size. There is mild to moderate concentric left ventricular hypertrophy. The Ejection Fraction is 55-60%. There is normal LV segmental wall motion. Transmitral Doppler flow pattern is Grade I-abnormal relaxation pattern. RIGHT VENTRICLE The right ventricle is normal size. The right ventricular systolic function is normal. ATRIA The left atrium is mildly dilated. The right atrium size is normal. The interatrial septum is intact with no evidence for an atrial septal defect. AORTIC VALVE The aortic valve is mildly sclerotic. There is mild aortic regurgitation. MITRAL VALVE Mitral annular calcification is mild. Mitral regurgitation is trace. TRICUSPID VALVE The tricuspid valve is normal in structure. There is trace tricuspid regurgitation. PULMONIC VALVE The pulmonary valve is normal in structure. GREAT VESSELS The aortic root is normal size. The aortic root displays mild sclerocalcific changes of the aortic root. The IVC is normal in size and collapses >50% with inspiration. PERICARDIAL EFFUSION small posterior pericardial effusion noted. <Conclusion> The left ventricle is normal size. There is mild to moderate concentric left ventricular hypertrophy. The Ejection Fraction is 55-60%. Transmitral Doppler flow pattern is Grade I-abnormal relaxation pattern. The left atrium is mildly dilated. There is mild aortic regurgitation. The aortic root is normal size. The aortic root displays mild sclerocalcific changes of the aortic root. The IVC is normal in size and collapses >50% with inspiration. small posterior pericardial effusion noted.
--- NOTE | 2018-08-27 15:34 | CP.PCM.CON ---
History of Present Illness - History of Present Illness History of Present Illness: dictated Past Patient History - Infectious Disease Hx of Infectious Diseases: None - Past Medical History & Family History Past Medical History?: Yes Past Family History: Reviewed and not pertinent - Past Social History Smoking Status: Former Smoker Chewing Tobacco Use: No Cigar Use: No Alcohol: None Drugs: Denies Home Situation {Lives}: With Family - CARDIAC Hx Hypertension: Yes - PULMONARY Hx Chronic Obstructive Pulmonary Disease (COPD): Yes - NEUROLOGICAL Hx Neurological Disorder: No - HEENT Hx HEENT Problems: No Other/Comment: wears glasses - RENAL Hx Chronic Kidney Disease: Yes - ENDOCRINE/METABOLIC Hx Endocrine Disorders: Yes Hx Diabetes Mellitus Type 2: Yes - HEMATOLOGICAL/ONCOLOGICAL Hx Blood Disorders: Yes Hx Blood Transfusions: Yes - INTEGUMENTARY Hx Dermatological Problems: No - MUSCULOSKELETAL/RHEUMATOLOGICAL Hx Arthritis: Yes - GASTROINTESTINAL Hx Gastrointestinal Disorders: Yes Other/Comment: HERNIA - GENITOURINARY/GYNECOLOGICAL Hx Genitourinary Disorders: No - PSYCHIATRIC Hx Substance Use: No - SURGICAL HISTORY Hx Surgeries: Yes Hx Herniorrhaphy: Yes (RIGHT INGUINAL) - ANESTHESIA Hx Anesthesia: Yes Hx Anesthesia Reactions: No Hx Malignant Hyperthermia: No Meds Allergies/Adverse Reactions: Allergies Allergy/AdvReac Type Severity Reaction Status Date / Time aspirin Allergy Severe PAIN Verified 08/24/18 13:31 - Medications Medications: Current Medications Albuterol/Ipratropium (Duoneb 3 Mg/0.5 Mg (3 Ml) Ud) 3 ml INH RQ4 [facility] Last Admin: 08/27/18 11:07 Dose: 3 ml Benzonatate (Tessalon Perles) 100 mg PO TID [facility] Last Admin: 08/27/18 13:25 Dose: 100 mg Calcitriol (Rocaltrol) 0.25 mcg PO DAILY [facility] Last Admin: 08/27/18 09:00 Dose: 0.25 mcg Dextrose (Dextrose 50% Inj) 0 ml IV STAT PRN; Protocol PRN Reason: Hypoglycemia Protocol Last Admin: 08/26/18 06:59 Dose: 50 ml Dextrose (Glutose 15) 0 gm PO ONCE PRN; Protocol PRN Reason: Hypoglycemia Protocol Epoetin Justino (Procrit) 10,000 unit IV TTS [facility] Folic Acid (Folic Acid) 1 mg PO DAILY [facility] Last Admin: 08/27/18 09:00 Dose: 1 mg Glucagon (Glucagen Diagnostic Kit) 0 mg IM STAT PRN; Protocol PRN Reason: Hypoglycemia Protocol Dextrose (Dextrose 5% In Water 1000 Ml) 1,000 mls @ 0 mls/hr IV .Q0M PRN; Protocol PRN Reason: Hypoglycemia Protocol Piperacillin Sod/Tazobactam Sod (Zosyn 2.25 Gm Iv Premix) 2.25 gm in 50 mls @ 100 mls/hr IVPB Q8H [facility]; Protocol Last Admin: 08/27/18 08:46 Dose: 100 mls/hr Vancomycin HCl 500 mg/ Sodium (Chloride) 100 mls @ 67 mls/hr IVPB TTS [facility]; Protocol Last Admin: 08/26/18 19:33 Dose: 67 mls/hr Insulin Human Regular (Novolin R) 0 unit SC ACHS [facility]; Protocol Last Admin: 08/27/18 12:53 Dose: 1 units Methylprednisolone (Solu-Medrol) 40 mg IVP DAILY [facility] Last Admin: 08/27/18 09:00 Dose: 40 mg Pantoprazole Sodium (Protonix Inj) 40 mg IVP DAILY [facility] Last Admin: 08/27/18 09:00 Dose: 40 mg Rosuvastatin Calcium (Crestor) 5 mg PO HS [facility] Last Admin: 08/26/18 21:45 Dose: 5 mg Results - Vital Signs Recent Vital Signs: Last Vital Signs Temp 97.6 F 08/27/18 13:55 Pulse 90 08/27/18 13:55 Resp 20 08/27/18 13:55 BP 147/74 08/27/18 14:55 Pulse Ox 100 08/27/18 13:55 - Labs Result Diagrams: 08/27/18 07:27 08/27/18 07:27 Labs: Laboratory Results - last 24 hr 08/25/18 08/25/18 08/26/18 16:23 21:01 06:37 WBC RBC Hgb Hct MCV MCH MCHC RDW Plt Count MPV Neut % (Auto) Lymph % (Auto) Petroleum % (Auto) Eos % (Auto) Baso % (Auto) Neut # (Auto) Lymph # (Auto) Petroleum # (Auto) Eos # (Auto) Baso # (Auto) Neutrophils % (Manual) Band Neutrophils % Lymphocytes % (Manual) Monocytes % (Manual) Platelet Estimate Poikilocytosis (manual Anisocytosis (manual) Microcytosis (manual) Macrocytosis (manual) Tear Drop Cells Ovalocytes Sodium Potassium Chloride Carbon Dioxide Anion Gap BUN Creatinine Est GFR ( Amer) Est GFR (Non-Af Amer) POC Glucose (mg/dL) 159 H 153 H 71 Random Glucose Calcium Phosphorus Magnesium Total Bilirubin AST ALT Alkaline Phosphatase Total Protein Albumin Globulin Albumin/Globulin Ratio 08/26/18 08/26/18 08/27/18 16:19 21:25 02:16 WBC RBC Hgb Hct MCV MCH MCHC RDW Plt Count MPV Neut % (Auto) Lymph % (Auto) Petroleum % (Auto) Eos % (Auto) Baso % (Auto) Neut # (Auto) Lymph # (Auto) Petroleum # (Auto) Eos # (Auto) Baso # (Auto) Neutrophils % (Manual) Band Neutrophils % Lymphocytes % (Manual) Monocytes % (Manual) Platelet Estimate Poikilocytosis (manual Anisocytosis (manual) Microcytosis (manual) Macrocytosis (manual) Tear Drop Cells Ovalocytes Sodium Potassium Chloride Carbon Dioxide Anion Gap BUN Creatinine Est GFR ( Amer) Est GFR (Non-Af Amer) POC Glucose (mg/dL) 415 H* 369 H 177 H Random Glucose Calcium Phosphorus Magnesium Total Bilirubin AST ALT Alkaline Phosphatase Total Protein Albumin Globulin Albumin/Globulin Ratio 08/27/18 08/27/18 08/27/18 06:29 07:27 07:27 WBC 7.9 RBC 2.39 L Hgb 7.6 L Hct 23.0 L MCV 96.1 H MCH 31.7 H MCHC 33.0 RDW 20.4 H Plt Count 216 MPV 8.4 Neut % (Auto) 88.1 H Lymph % (Auto) 5.5 L Petroleum % (Auto) 6.3 Eos % (Auto) 0.0 Baso % (Auto) 0.1 Neut # (Auto) 7.0 Lymph # (Auto) 0.4 L Petroleum # (Auto) 0.5 Eos # (Auto) 0.0 Baso # (Auto) 0.0 Neutrophils % (Manual) 86 H Band Neutrophils % 2 Lymphocytes % (Manual) 6 L Monocytes % (Manual) 6 Platelet Estimate Normal Poikilocytosis (manual Slight Anisocytosis (manual) Moderate Microcytosis (manual) Slight Macrocytosis (manual) Slight Tear Drop Cells Slight Ovalocytes Slight Sodium 131 L Potassium 4.0 Chloride 96 L Carbon Dioxide 31 H Anion Gap 9 L BUN 27 H Creatinine 3.6 H Est GFR ( Amer) 20 Est GFR (Non-Af Amer) 16 POC Glucose (mg/dL) 159 H Random Glucose 163 H D Calcium 8.3 L Phosphorus 3.4 Magnesium 2.2 Total Bilirubin 1.0 AST 34 ALT 19 L Alkaline Phosphatase 62 Total Protein 5.3 L Albumin 2.9 L Globulin 2.4 Albumin/Globulin Ratio 1.2 08/27/18 11:02 WBC RBC Hgb Hct MCV MCH MCHC RDW Plt Count MPV Neut % (Auto) Lymph % (Auto) Petroleum % (Auto) Eos % (Auto) Baso % (Auto) Neut # (Auto) Lymph # (Auto) Petroleum # (Auto) Eos # (Auto) Baso # (Auto) Neutrophils % (Manual) Band Neutrophils % Lymphocytes % (Manual) Monocytes % (Manual) Platelet Estimate Poikilocytosis (manual Anisocytosis (manual) Microcytosis (manual) Macrocytosis (manual) Tear Drop Cells Ovalocytes Sodium Potassium Chloride Carbon Dioxide Anion Gap BUN Creatinine Est GFR ( Amer) Est GFR (Non-Af Amer) POC Glucose (mg/dL) 172 H Random Glucose Calcium Phosphorus Magnesium Total Bilirubin AST ALT Alkaline Phosphatase Total Protein Albumin Globulin Albumin/Globulin Ratio
[2018-08-27] MEDS: Epoetin Alfa 10,000 unit/ml Dialysis IV SCH (15:53)
--- NOTE | 2018-08-27 16:25 | CP.PCM.PN ---
Subjective - Date & Time of Evaluation Date of Evaluation: 08/27/18 Time of Evaluation: 16:20 - Subjective Subjective: Patient seen and examined Seen during hemodialysis Patient states cough is much better Afebrile Objective - Vital Signs/Intake and Output Vital Signs (last 24 hours): Temp Pulse Resp BP Pulse Ox 97.6 F 90 20 137/69 100 08/27/18 13:55 08/27/18 13:55 08/27/18 13:55 08/27/18 15:55 08/27/18 13:55 Intake and Output: 08/27/18 08/27/18 06:59 18:59 Intake Total 450 Output Total 175 Balance -175 450 - Medications Medications: Current Medications Albuterol/Ipratropium (Duoneb 3 Mg/0.5 Mg (3 Ml) Ud) 3 ml INH RQ4 [facility] Last Admin: 08/27/18 11:07 Dose: 3 ml Benzonatate (Tessalon Perles) 100 mg PO TID [facility] Last Admin: 08/27/18 13:25 Dose: 100 mg Calcitriol (Rocaltrol) 0.25 mcg PO DAILY [facility] Last Admin: 08/27/18 09:00 Dose: 0.25 mcg Dextrose (Dextrose 50% Inj) 0 ml IV STAT PRN; Protocol PRN Reason: Hypoglycemia Protocol Last Admin: 08/26/18 06:59 Dose: 50 ml Dextrose (Glutose 15) 0 gm PO ONCE PRN; Protocol PRN Reason: Hypoglycemia Protocol Epoetin Justino (Procrit) 10,000 unit IV TTS [facility] Last Admin: 08/27/18 15:53 Dose: 10,000 unit Folic Acid (Folic Acid) 1 mg PO DAILY [facility] Last Admin: 08/27/18 09:00 Dose: 1 mg Glucagon (Glucagen Diagnostic Kit) 0 mg IM STAT PRN; Protocol PRN Reason: Hypoglycemia Protocol Dextrose (Dextrose 5% In Water 1000 Ml) 1,000 mls @ 0 mls/hr IV .Q0M [facility]; Protocol PRN Reason: Hypoglycemia Protocol Piperacillin Sod/Tazobactam Sod (Zosyn 2.25 Gm Iv Premix) 2.25 gm in 50 mls @ 100 mls/hr IVPB Q8H [facility]; Protocol Last Admin: 08/27/18 08:46 Dose: 100 mls/hr Vancomycin HCl 500 mg/ Sodium (Chloride) 100 mls @ 67 mls/hr IVPB TTS [facility]; Protocol Last Admin: 08/26/18 19:33 Dose: 67 mls/hr Insulin Human Regular (Novolin R) 0 unit SC ACHS [facility]; Protocol Last Admin: 08/27/18 12:53 Dose: 1 units Methylprednisolone (Solu-Medrol) 40 mg IVP DAILY [facility] Last Admin: 08/27/18 09:00 Dose: 40 mg Pantoprazole Sodium (Protonix Inj) 40 mg IVP DAILY [facility] Last Admin: 08/27/18 09:00 Dose: 40 mg Rosuvastatin Calcium (Crestor) 5 mg PO HS [facility] Last Admin: 08/26/18 21:45 Dose: 5 mg - Labs Labs: 08/27/18 07:27 08/27/18 07:27 PT 10.7 SECONDS (9.7-12.2) 08/24/18 14:32 INR 1.0 08/24/18 14:32 APTT 27 SECONDS (21-34) 08/24/18 14:32 - Head Exam Head Exam: ATRAUMATIC, NORMOCEPHALIC - ENT Exam ENT Exam: Mucous Membranes Moist - Neck Exam Neck Exam: Normal Inspection - Respiratory Exam Respiratory Exam: Rales Assessment and Plan (1) Pneumonia Assessment & Plan: Continue antibiotics Continue nebulizer treatment Hemodialysis Follow-up culture and sensitivity Status: Acute (2) Anemia Status: Acute (3) ESRD on dialysis Status: Acute (4) Gastrointestinal hemorrhage Status: Acute (5) Hematuria Status: Acute (6) Pulmonary fibrosis Status: Chronic
--- NOTE | 2018-08-27 19:33 | CP.PCM.PN ---
<Caleb Dalyy - Last Filed: 08/28/18 04:48> Subjective - Date & Time of Evaluation Date of Evaluation: 08/28/18 Time of Evaluation: 01:00 - Subjective Subjective: PGY-1 Medicine Progress Note for Hospitalist Patient seen and examined at bedside. No acute overnight events. Still having black watery stools. Pt reports feeling anxiety after getting Duoneb treatments. He denies hematuria. Denies fever, chills, chest pain, palpitations, acute sob, abdominal pain, n/v. Cough has improved. Objective - Vital Signs/Intake and Output Vital Signs (last 24 hours): Temp Pulse Resp BP Pulse Ox 98.1 F 89 18 136/83 94 L 08/27/18 17:28 08/27/18 17:28 08/27/18 17:28 08/27/18 17:28 08/27/18 17:28 Intake and Output: 08/27/18 08/28/18 18:59 06:59 Intake Total 450 Balance 450 - Medications Medications: Current Medications Albuterol/Ipratropium (Duoneb 3 Mg/0.5 Mg (3 Ml) Ud) 3 ml INH RQ4 [facility] Last Admin: 08/27/18 19:32 Dose: 3 ml Benzonatate (Tessalon Perles) 100 mg PO TID [facility] Last Admin: 08/27/18 13:25 Dose: 100 mg Calcitriol (Rocaltrol) 0.25 mcg PO DAILY [facility] Last Admin: 08/27/18 09:00 Dose: 0.25 mcg Dextrose (Dextrose 50% Inj) 0 ml IV STAT PRN; Protocol PRN Reason: Hypoglycemia Protocol Last Admin: 08/26/18 06:59 Dose: 50 ml Dextrose (Glutose 15) 0 gm PO ONCE PRN; Protocol PRN Reason: Hypoglycemia Protocol Epoetin Justino (Procrit) 10,000 unit IV TTS [facility] Last Admin: 08/27/18 15:53 Dose: 10,000 unit Folic Acid (Folic Acid) 1 mg PO DAILY [facility] Last Admin: 08/27/18 09:00 Dose: 1 mg Glucagon (Glucagen Diagnostic Kit) 0 mg IM STAT PRN; Protocol PRN Reason: Hypoglycemia Protocol Dextrose (Dextrose 5% In Water 1000 Ml) 1,000 mls @ 0 mls/hr IV .Q0M PRN; Protocol PRN Reason: Hypoglycemia Protocol Piperacillin Sod/Tazobactam Sod (Zosyn 2.25 Gm Iv Premix) 2.25 gm in 50 mls @ 100 mls/hr IVPB Q8H [facility]; Protocol Last Admin: 08/27/18 08:46 Dose: 100 mls/hr Vancomycin HCl 500 mg/ Sodium (Chloride) 100 mls @ 67 mls/hr IVPB TTS [facility]; Protocol Last Admin: 08/26/18 19:33 Dose: 67 mls/hr Insulin Human Regular (Novolin R) 0 unit SC ACHS [facility]; Protocol Last Admin: 08/27/18 12:53 Dose: 1 units Methylprednisolone (Solu-Medrol) 40 mg IVP DAILY [facility] Last Admin: 08/27/18 09:00 Dose: 40 mg Pantoprazole Sodium (Protonix Inj) 40 mg IVP DAILY [facility] Last Admin: 08/27/18 09:00 Dose: 40 mg Rosuvastatin Calcium (Crestor) 5 mg PO HS [facility] Last Admin: 08/26/18 21:45 Dose: 5 mg - Labs Labs: 08/27/18 07:27 08/27/18 07:27 PT 10.7 SECONDS (9.7-12.2) 08/24/18 14:32 INR 1.0 08/24/18 14:32 APTT 27 SECONDS (21-34) 08/24/18 14:32 - Additional Findings Additional findings: - Constitutional Appears: No Acute Distress, Chronically Ill - Head Exam Head Exam: ATRAUMATIC, NORMAL INSPECTION, NORMOCEPHALIC - Eye Exam Eye Exam: EOMI, Normal appearance, PERRL Pupil Exam: NORMAL ACCOMODATION - ENT Exam ENT Exam: Mucous Membranes Moist, Normal Exam - Neck Exam Neck Exam: Full ROM, Normal Inspection - Respiratory Exam Respiratory Exam: Decreased Breath Sounds. absent: Rhonchi, Accessory Muscle Use, Respiratory Distress - Cardiovascular Exam Cardiovascular Exam: REGULAR RHYTHM, +S1, +S2 - GI/Abdominal Exam GI & Abdominal Exam: Soft, Normal Bowel Sounds. absent: Distended, Firm, Guarding, Rigid, Tenderness, Rebound peritoneal cath dressing c/d/i - Extremities Exam Extremities Exam: Full ROM, Normal Capillary Refill, Normal Inspection. absent: Calf Tenderness, Pedal Edema - Back Exam Back Exam: NORMAL INSPECTION - Neurological Exam Neurological Exam: Alert, Awake, Oriented x3 - Skin Skin Exam: Dry, Intact, Normal Color, Warm Assessment and Plan - Assessment and Plan (Free Text) Assessment: 82 year old male with past medical history of HTN, HLD, DM, ESRD on HD TTS, COPD, and chronic anemia presenting to ED for gross hematuria and black watery stools for the past 2 weeks. Plan: Hematuria Bilateral Nephrolithiasis -likely / b/l nephrolithiasis -s/p 1 unit pRBC -Hb 7.7 (08/26), continue to monitor and transfuse prn -Urine Cx: no growth -Blood culture x1: gram positive cocci -Urology, Dr. coates, consulted -EKG: sinus tachycardia, nonspecific T wave abnormality -CT abdomen/pelvis (08/24): B/L nephrolithiasis. Gallbladder distention with cholelithiasis. RLQ pelvic drainage tube catheter in place with small amount of free fluid in pelvic space. Colonic diverticulosis. RLL consolidation with extensive bibasilar bronchiectasis. Black watery stools, r/o GI bleed -no new episodes of overt bloody BM noted -occult stool x 2 negative -fecal leukocyte negative -ova and parasite is negative, - c diff toxin negative - f/u stool cx -GI (Dr. Bell) recs appreciated -colonoscopy report (08/26): internal hemorrhoids moderate and Grade I. Multiple diverticula in sigmoid and descending colon. New L lobe Infiltrate -Pulmonology (Dr. Post) recs appreciated -nebulizer treatment -Tessalon perrles added -BCx x 1: gram positive cocci -will start Vancomycin IV TTS after HD -c/w zosyn renally dosed -08/26/18 BCx2 is prelim negative for 24 hours -Dr. Mendez, ID, consulted. Recs appreciated. ESRD on HD (TTS) -s/p dialysis today -Nephrology (Dr. Dutton) on case Will need AV acess -calcitriol 0.25 mcg PO daily -folic acid 1 mg PO daily Hx of COPD Pulmonary Fibrosis -CXR (08/24): Resolving opacity at R base, r/o PNA at L base. Bibasilar atelectasis, possible v small R pleural effusion -duonebs q4 new changed to atrovent q4 new due to agitation from albuterol -solumedrol 40 daily new DM -home meds held -ISS low -accuchecks achs -hypoglycemic protocol Hx HTN -Norvasc 5 mg PO daily Hx of HLD -Crestor 5 mg PO HS [facility] Anemia of chronic disease -2/2 underlying renal failure -s/p 1 unit pRBC, continue to monitor Will transfuse PRN PPx, Diet, Disposition -DVT ppx: scds, oral AC held given acute bleeding -GI ppx: protonix 40 IV daily -Diet: Liquid diet -PT on case Dispo:Planning for cystoscopy later today. <Sabino Dias - Last Filed: 08/30/18 14:03> Objective - Vital Signs/Intake and Output Vital Signs (last 24 hours): Temp Pulse Resp BP Pulse Ox 98.2 F 83 18 149/79 95 08/28/18 07:00 08/28/18 07:00 08/28/18 07:00 08/28/18 07:00 08/28/18 07:00 Intake and Output: 08/28/18 08/28/18 06:59 18:59 Intake Total 150 Output Total 375 Balance -225 - Medications Medications: Current Medications Benzonatate (Tessalon Perles) 100 mg PO TID [facility] Last Admin: 08/28/18 10:19 Dose: 100 mg Calcitriol (Rocaltrol) 0.25 mcg PO DAILY [facility] Last Admin: 08/28/18 10:19 Dose: 0.25 mcg Dextrose (Dextrose 50% Inj) 0 ml IV STAT PRN; Protocol PRN Reason: Hypoglycemia Protocol Last Admin: 08/26/18 06:59 Dose: 50 ml Dextrose (Glutose 15) 0 gm PO ONCE PRN; Protocol PRN Reason: Hypoglycemia Protocol Epoetin Justino (Procrit) 10,000 unit IV TTS [facility] Last Admin: 08/27/18 15:53 Dose: 10,000 unit Folic Acid (Folic Acid) 1 mg PO DAILY [facility] Last Admin: 08/28/18 10:19 Dose: 1 mg Glucagon (Glucagen Diagnostic Kit) 0 mg IM STAT PRN; Protocol PRN Reason: Hypoglycemia Protocol Dextrose (Dextrose 5% In Water 1000 Ml) 1,000 mls @ 0 mls/hr IV .Q0M PRN; Protocol PRN Reason: Hypoglycemia Protocol Piperacillin Sod/Tazobactam Sod (Zosyn 2.25 Gm Iv Premix) 2.25 gm in 50 mls @ 100 mls/hr IVPB Q8H [facility]; Protocol Last Admin: 08/28/18 09:03 Dose: 100 mls/hr Vancomycin HCl 500 mg/ Sodium (Chloride) 100 mls @ 67 mls/hr IVPB TTS [facility]; Protocol Last Admin: 08/27/18 20:14 Dose: 67 mls/hr Insulin Human Regular (Novolin R) 0 unit SC ACHS [facility]; Protocol Last Admin: 08/28/18 08:41 Dose: Not Given Ipratropium [place] (Atrovent) 0.5 mg IH RQ4 [facility] Last Admin: 08/28/18 12:20 Dose: 0.5 mg Methylprednisolone (Solu-Medrol) 40 mg IVP DAILY [facility] Last Admin: 08/28/18 10:20 Dose: 40 mg Pantoprazole Sodium (Protonix Ec Tab) 40 mg PO DAILY [facility] Last Admin: 08/28/18 10:19 Dose: 40 mg Rosuvastatin Calcium (Crestor) 5 mg PO HS [facility] Last Admin: 08/27/18 22:41 Dose: 5 mg - Labs Labs: 08/28/18 08:12 08/28/18 08:12 PT 10.7 SECONDS (9.7-12.2) 08/24/18 14:32 INR 1.0 08/24/18 14:32 APTT 27 SECONDS (21-34) 08/24/18 14:32 Attending/Attestation - Attestation I have personally seen and examined this patient.: Yes I have fully participated in the care of the patient.: Yes I have reviewed all pertinent clinical information, including history, physical exam and plan: Yes Notes (Text): Patient was seen and examined this morning. Had soft stool sample with him. No melena ,no blood noted ,down green stool. Patient has cough without sputum ,no shortness of breath ,sitting on bed, no fever, blood culture drawn August 26 shows no growth. 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 mendez. Patient has peritoneal and right chest hemodialysis cath placed few weeks ago. Patient was getting hemodialysis through his hemodialysis cath from his right chest. Not started using peritoneal cath. Surgery is planning for AV fistula. Discussed with Dr. Ross Toki she is planning to speak to surgery team on Wednesday. We will follow the repeat culture done yesterday at dialysis. Patient still has hematuria, denies , hemoptomesis. We will transfuse 1 unit blood. Today's hemoglobin is 7.2
[2018-08-28] MEDS: Albuterol-Ipratrop 3 mg / 0.5 (3 ml) UD INH SCH (00:21)
[2018-08-28] MEDS: Ipratropium 0.02% Inhal Soln (0.5 mg/2.5 ml) UD IH SCH ×5 (04:00→19:34)
--- NOTE | 2018-08-28 07:01 | CON ---
DATE: 08/27/2018 INFECTIOUS DISEASE CONSULT REQUESTING PHYSICIAN: Lexie Dias MD HISTORY OF PRESENT ILLNESS: This patient is an 82-year-old male. He was admitted here with hypertension, hyperlipidemia, diabetes, end-stage renal disease. He was here early July when he had a peritoneal catheter placed and also had a right hemodialysis catheter placed and was having Pseudomonas. He was treated for days and then he was discharged. He now comes in and he was readmitted when he was seen by Dr. Boone at that time, now comes in with several episodes of diarrhea. He said he was having bloody stool as well as urine and his appetite has decreased. I saw him today when he was on dialysis. His one blood culture has come back positive Staph epidermidis and he has a catheter in the peritoneal area as well as in the right subclavian and he tells me that he is aware of it that they will remove both the catheters and put a new catheter on the left side. He is receiving vancomycin post dialysis today and they did not do new cultures today. He denies any fever, chills, chest pain or palpitations and he says his cough is better. He is taking some medicine he says at 3 o'clock. PAST MEDICAL HISTORY: Significant for hypertension, hyperlipidemia. He was also treated for flu, end-stage renal disease, on hemodialysis, COPD and anemia. PAST SURGICAL HISTORY: Right inguinal hernia surgery repair. ALLERGIES: HE IS ALLERGIC TO ASPIRIN. HE SAYS HIS STOMACH HURTS. SOCIAL HISTORY: He is a former smoker, quit smoking at age 42 years. He smoked one to two packs a day and has no alcohol or illicit drug use. FAMILY HISTORY: Noncontributory. His outboard motor tester is Dr. Dutton and his past medical history, he did have Pseudomonas recently and former smoker, history of hypertension. Pulmonarywise, he does have history of pulmonary fibrosis, if I remember correctly, and had Pseudomonas and COPD and neurological, no symptoms. HEENT-peguero, he wears glasses, he has chronic renal failure and GI, he had hernia and no psych problems. Surgery, he had herniorrhaphy. He has catheters, two catheters. PHYSICAL EXAMINATION: GENERAL: He appears chronically ill. VITAL SIGNS: He has temperature of 98.1 now, when I saw him it was 97.2, pulse 83, blood pressure 143/71, respirations are 20. HEENT: Head: Atraumatic, normocephalic. Pupils are reacting to light. NECK: Supple. JVP is flat at this time. LUNGS: Coarse breath sounds. HEART: S1, S2 is regular. No murmurs appreciated. ABDOMEN: Soft, nontender. No guarding, no rigidity present but he has a dialysis catheter present and a right Port-A-Cath present. EXTREMITIES: No edema, clubbing or cyanosis present at this time. No CVA tenderness present. NEUROLOGIC: He is alert, awake, able to answer questions. LABORATORY DATA: Labs are noted. Labs show white count is 10.9, hemoglobin 7.6, hematocrit 23, platelet count is 216. Sodium is 131, potassium 4, chlorides are 96, CO2 is 31, anion gap is 9, BUN is 27, creatinine is 3.6. C. diff is negative. They also did C. diff. He was seen by Dr. Bell and stool occult blood is negative. Leukocytes qualitative are negative. UA shows protein 2+, glucose 2+, blood 3+ and RBC 409. We are waiting for the micro culture, urine culture however came out negative. Blood culture has Staph species in one set. Urine culture before was negative. Stool is negative and he had a coagulase-negative Staph. He did come in with bacteremia, also was having diarrhea and had pyuria in the urine. He has end-stage renal disease and will need these catheters to be changed once his culture becomes negative. We will continue with vancomycin and Zosyn at this time as he did have Pseudomonas before. He is getting 500 of the TTS. He had a chest x-ray and abdominal CT on the day he came in. Probable bibasilar subsegmental atelectasis, rule out pneumonia at left base, resolving opacity at right base, possible very small right pleural effusion. PLAN: So, at this time, he probably has a resolving pneumonia. On the CAT scan of the abdomen and pelvis, we find that he has a pelvic draining catheter with small amount of free fluid in the pelvis and next it shows is bilateral nephrolithiasis, cholelithiasis, right lower quadrant pelvic drainage tube catheter in place with smaller amount of free fluid in the pelvis, colonic diverticulosis, right lower lobe consolidation with extensive bibasilar bronchiectasis. Staph epi bacteremia with probably catheter sepsis and he has two catheters, so both need to come out and he says he will be on dialysis and cholelithiasis, right lower quadrant pelvic drainage with a small amount of free fluid in the pelvis, colonic diverticulosis, right lower lobe consolidation and bronchiectasis. Melissa Gaitan MD
--- NOTE | 2018-08-28 08:15 | CARD ---
APPROVED REPORT Date of service: 08/24/2018 EKG Measurement Heart [id number] <Conclusion> Sinus tachycardia Voltage criteria for left ventricular hypertrophy Nonspecific T wave abnormality Abnormal ECG
[2018-08-28 08:26] LABS: EOS % 0.5 % (0.0-4.0); HEMOGLOBIN 7.2 g/dL (12.0-18.0); LYMPH # 0.5 K/uL (1.0-4.3); LYMPH % 7.2 % (20.0-40.0); MEAN CELL VOLUME 95.7 fL (80.0-94.0); MEAN CORPUSCULAR HEMOGLOBIN 31.9 pg (27.0-31.0); MEAN CORPUSCULAR HGB CONC 33.4 g/dL (33.0-37.0); MEAN PLATELET VOLUME 7.8 fL (7.2-11.7); MONO # 0.5 K/uL (0.0-0.8); MONO % 7.5 % (0.0-10.0); NEUT # 5.8 K/uL (1.8-7.0); NEUT % 84.8 % (50.0-75.0); PLATELET COUNT 194 K/uL (130-400); RBC 2.26 Mil/uL (4.40-5.90); RED CELL DISTRIBUTION WIDTH 19.1 % (11.5-14.5); WHITE BLOOD COUNT 6.9 K/uL (4.8-10.8)
[2018-08-28] MEDS: (Novolin R) Insulin Human Regular 100 units/ml vial SC SCH ×4 (08:41→21:52)
[2018-08-28 08:43] LABS: ALBUMIN 2.5 g/dL (3.5-5.0); CALCIUM 7.8 mg/dl (8.6-10.4)
[2018-08-28] MEDS: Piperacill/Tazo 2.25gm in Dex 2.25 GM/50 ML BAG IVPB SCH ×3 (09:03→23:34)
[2018-08-28 09:34] LABS: NEUTROPHIL 86 % (50-75); TOTAL CELLS COUNTED 100
[2018-08-28 09:35] LABS: ANISOCYTOSIS SLIGHT; LYMPHOCYTE 7 % (20-40); MONOCYTE 7 % (0-10); PLATELET ESTIMATE NORMAL (NORMAL)
[2018-08-28 09:36] LABS: HYPOCHROMIC SLIGHT; MICROCYTOSIS SLIGHT; OVALOCYTES SLIGHT; POIKILOCYTOSIS SLIGHT; TEARDROP CELLS SLIGHT
[2018-08-28] MEDS: Pantoprazole 40 mg EC Tab PO SCH (10:19)
[2018-08-28] MEDS: MethylPREDNISolone 40 mg Vial IVP SCH (10:20)
--- NOTE | 2018-08-28 10:33 | CP.PCM.PN ---
Subjective - Date & Time of Evaluation Date of Evaluation: 08/28/18 Time of Evaluation: 10:30 Objective - Vital Signs/Intake and Output Vital Signs (last 24 hours): Temp Pulse Resp BP Pulse Ox 98.2 F 83 18 149/79 95 08/28/18 07:00 08/28/18 07:00 08/28/18 07:00 08/28/18 07:00 08/28/18 07:00 Intake and Output: 08/28/18 08/28/18 06:59 18:59 Intake Total 150 Output Total 375 Balance -225 - Medications Medications: Current Medications Benzonatate (Tessalon Perles) 100 mg PO TID [facility] Last Admin: 08/28/18 10:19 Dose: 100 mg Calcitriol (Rocaltrol) 0.25 mcg PO DAILY [facility] Last Admin: 08/28/18 10:19 Dose: 0.25 mcg Dextrose (Dextrose 50% Inj) 0 ml IV STAT PRN; Protocol PRN Reason: Hypoglycemia Protocol Last Admin: 08/26/18 06:59 Dose: 50 ml Dextrose (Glutose 15) 0 gm PO ONCE PRN; Protocol PRN Reason: Hypoglycemia Protocol Epoetin Justino (Procrit) 10,000 unit IV TTS [facility] Last Admin: 08/27/18 15:53 Dose: 10,000 unit Folic Acid (Folic Acid) 1 mg PO DAILY [facility] Last Admin: 08/28/18 10:19 Dose: 1 mg Glucagon (Glucagen Diagnostic Kit) 0 mg IM STAT PRN; Protocol PRN Reason: Hypoglycemia Protocol Dextrose (Dextrose 5% In Water 1000 Ml) 1,000 mls @ 0 mls/hr IV .Q0M PRN; Protocol PRN Reason: Hypoglycemia Protocol Piperacillin Sod/Tazobactam Sod (Zosyn 2.25 Gm Iv Premix) 2.25 gm in 50 mls @ 100 mls/hr IVPB Q8H [facility]; Protocol Last Admin: 08/28/18 09:03 Dose: 100 mls/hr Vancomycin HCl 500 mg/ Sodium (Chloride) 100 mls @ 67 mls/hr IVPB TTS [facility]; Protocol Last Admin: 08/27/18 20:14 Dose: 67 mls/hr Insulin Human Regular (Novolin R) 0 unit SC ACHS [facility]; Protocol Last Admin: 08/28/18 08:41 Dose: Not Given Ipratropium [place] (Atrovent) 0.5 mg IH RQ4 [facility] Last Admin: 08/28/18 04:00 Dose: Not Given Methylprednisolone (Solu-Medrol) 40 mg IVP DAILY [facility] Last Admin: 08/28/18 10:20 Dose: 40 mg Pantoprazole Sodium (Protonix Ec Tab) 40 mg PO DAILY [facility] Last Admin: 08/28/18 10:19 Dose: 40 mg Rosuvastatin Calcium (Crestor) 5 mg PO HS [facility] Last Admin: 08/27/18 22:41 Dose: 5 mg - Labs Labs: 08/28/18 08:12 08/28/18 08:12 PT 10.7 SECONDS (9.7-12.2) 08/24/18 14:32 INR 1.0 08/24/18 14:32 APTT 27 SECONDS (21-34) 08/24/18 14:32
--- NOTE | 2018-08-28 10:43 | CP.PCM.PN ---
Subjective - Date & Time of Evaluation Date of Evaluation: 08/28/18 Time of Evaluation: 10:00 - Subjective Subjective: f/u GI bleed. Covering DR Bell. Pt reports dark brown stool. No RB. Denies Cp, SOB, SAN, cough, SZ, hemoptysis, cough, tremors Objective - Vital Signs/Intake and Output Vital Signs (last 24 hours): Temp Pulse Resp BP Pulse Ox 98.2 F 83 18 149/79 95 08/28/18 07:00 08/28/18 07:00 08/28/18 07:00 08/28/18 07:00 08/28/18 07:00 Intake and Output: 08/28/18 08/28/18 06:59 18:59 Intake Total 150 Output Total 375 Balance -225 - Medications Medications: Current Medications Benzonatate (Tessalon Perles) 100 mg PO TID [facility] Last Admin: 08/28/18 10:19 Dose: 100 mg Calcitriol (Rocaltrol) 0.25 mcg PO DAILY [facility] Last Admin: 08/28/18 10:19 Dose: 0.25 mcg Dextrose (Dextrose 50% Inj) 0 ml IV STAT PRN; Protocol PRN Reason: Hypoglycemia Protocol Last Admin: 08/26/18 06:59 Dose: 50 ml Dextrose (Glutose 15) 0 gm PO ONCE PRN; Protocol PRN Reason: Hypoglycemia Protocol Epoetin Justino (Procrit) 10,000 unit IV TTS [facility] Last Admin: 08/27/18 15:53 Dose: 10,000 unit Folic Acid (Folic Acid) 1 mg PO DAILY [facility] Last Admin: 08/28/18 10:19 Dose: 1 mg Glucagon (Glucagen Diagnostic Kit) 0 mg IM STAT PRN; Protocol PRN Reason: Hypoglycemia Protocol Dextrose (Dextrose 5% In Water 1000 Ml) 1,000 mls @ 0 mls/hr IV .Q0M PRN; Protocol PRN Reason: Hypoglycemia Protocol Piperacillin Sod/Tazobactam Sod (Zosyn 2.25 Gm Iv Premix) 2.25 gm in 50 mls @ 100 mls/hr IVPB Q8H [facility]; Protocol Last Admin: 08/28/18 09:03 Dose: 100 mls/hr Vancomycin HCl 500 mg/ Sodium (Chloride) 100 mls @ 67 mls/hr IVPB TTS [facility]; Protocol Last Admin: 08/27/18 20:14 Dose: 67 mls/hr Insulin Human Regular (Novolin R) 0 unit SC ACHS [facility]; Protocol Last Admin: 08/28/18 08:41 Dose: Not Given Ipratropium [place] (Atrovent) 0.5 mg IH RQ4 [facility] Last Admin: 08/28/18 04:00 Dose: Not Given Methylprednisolone (Solu-Medrol) 40 mg IVP DAILY [facility] Last Admin: 08/28/18 10:20 Dose: 40 mg Pantoprazole Sodium (Protonix Ec Tab) 40 mg PO DAILY [facility] Last Admin: 08/28/18 10:19 Dose: 40 mg Rosuvastatin Calcium (Crestor) 5 mg PO HS [facility] Last Admin: 08/27/18 22:41 Dose: 5 mg - Labs Labs: 08/28/18 08:12 08/28/18 08:12 PT 10.7 SECONDS (9.7-12.2) 08/24/18 14:32 INR 1.0 08/24/18 14:32 APTT 27 SECONDS (21-34) 08/24/18 14:32 - Constitutional Appears: Well - Neck Exam Neck Exam: absent: Tenderness - Respiratory Exam Respiratory Exam: Clear to Ausculation Bilateral - Cardiovascular Exam Cardiovascular Exam: RRR - GI/Abdominal Exam GI & Abdominal Exam: Soft, Normal Bowel Sounds. absent: Guarding, Tenderness, Mass - Neurological Exam Neurological Exam: Alert, Awake, Oriented x3 Assessment and Plan (1) Diverticulosis large intestine w/o perforation or abscess w/bleeding Status: Acute (2) Anemia Status: Acute (3) ESRD on dialysis Status: Acute (4) Gastrointestinal hemorrhage Assessment & Plan: Likely from diverticulosis. Hb slightly decreased. Rec- follow Hb, consider transfusion. Advance diet. Status: Acute (5) Hematuria Status: Acute (6) Anemia Status: Acute (7) COPD (chronic obstructive pulmonary disease) Status: Acute
--- NOTE | 2018-08-28 10:46 | CP.PCM.CON ---
History of Present Illness - History of Present Illness History of Present Illness: Vascular Surgery Dr. Dejesus 83 y/o M w/ PMHx HTN, DM2, ESRD on HD TTS presented to the ED on 08/24 for gross hematuria and melena x2wks. Pt admitted to intermittent abd pain assoc w/ dialysis. Fecal occult was negative. Pt was seen by GI and underwent colonoscopy on 08/26 which showed internal hemorrhoids and diverticulosis. Pt is scheduled for cystoscopy on Wednesday, 08/29. Surgery is consulted for creation of AVF for continued HD 07/30 recent melena (PD relatively contraindicated). Pt admits to continued diarrhea but denies CP, SOB, F/C, N/V, abd pain, dysuria. PMHx: see above, HLD, COPD, anemia Meds: reviewed in chart ALL: ASA PSHx: RIHR x2, PD catheter (07/27/18) SHx: former smoker; denies EtOH, drug use FHx: noncontributory Review of Systems - Review of Systems All systems: reviewed and no additional remarkable complaints except (see HPI) Past Patient History - Infectious Disease Hx of Infectious Diseases: None - Past Medical History & Family History Past Medical History?: Yes Past Family History: Reviewed and not pertinent - Past Social History Smoking Status: Former Smoker Chewing Tobacco Use: No Cigar Use: No Alcohol: None Drugs: Denies Home Situation {Lives}: With Family - CARDIAC Hx Hypertension: Yes - PULMONARY Hx Chronic Obstructive Pulmonary Disease (COPD): Yes - NEUROLOGICAL Hx Neurological Disorder: No - HEENT Hx HEENT Problems: No Other/Comment: wears glasses - RENAL Hx Chronic Kidney Disease: Yes - ENDOCRINE/METABOLIC Hx Endocrine Disorders: Yes Hx Diabetes Mellitus Type 2: Yes - HEMATOLOGICAL/ONCOLOGICAL Hx Blood Disorders: Yes Hx Blood Transfusions: Yes - INTEGUMENTARY Hx Dermatological Problems: No - MUSCULOSKELETAL/RHEUMATOLOGICAL Hx Arthritis: Yes - GASTROINTESTINAL Hx Gastrointestinal Disorders: Yes Other/Comment: HERNIA - GENITOURINARY/GYNECOLOGICAL Hx Genitourinary Disorders: No - PSYCHIATRIC Hx Substance Use: No - SURGICAL HISTORY Hx Surgeries: Yes Hx Herniorrhaphy: Yes (RIGHT INGUINAL) - ANESTHESIA Hx Anesthesia: Yes Hx Anesthesia Reactions: No Hx Malignant Hyperthermia: No Meds Allergies/Adverse Reactions: Allergies Allergy/AdvReac Type Severity Reaction Status Date / Time aspirin Allergy Severe PAIN Verified 08/24/18 13:31 - Medications Medications: Current Medications Benzonatate (Tessalon Perles) 100 mg PO TID [facility] Last Admin: 08/28/18 10:19 Dose: 100 mg Calcitriol (Rocaltrol) 0.25 mcg PO DAILY [facility] Last Admin: 08/28/18 10:19 Dose: 0.25 mcg Dextrose (Dextrose 50% Inj) 0 ml IV STAT PRN; Protocol PRN Reason: Hypoglycemia Protocol Last Admin: 08/26/18 06:59 Dose: 50 ml Dextrose (Glutose 15) 0 gm PO ONCE PRN; Protocol PRN Reason: Hypoglycemia Protocol Epoetin Justino (Procrit) 10,000 unit IV TTS [facility] Last Admin: 08/27/18 15:53 Dose: 10,000 unit Folic Acid (Folic Acid) 1 mg PO DAILY [facility] Last Admin: 08/28/18 10:19 Dose: 1 mg Glucagon (Glucagen Diagnostic Kit) 0 mg IM STAT PRN; Protocol PRN Reason: Hypoglycemia Protocol Dextrose (Dextrose 5% In Water 1000 Ml) 1,000 mls @ 0 mls/hr IV .Q0M PRN; Protocol PRN Reason: Hypoglycemia Protocol Piperacillin Sod/Tazobactam Sod (Zosyn 2.25 Gm Iv Premix) 2.25 gm in 50 mls @ 100 mls/hr IVPB Q8H [facility]; Protocol Last Admin: 08/28/18 09:03 Dose: 100 mls/hr Vancomycin HCl 500 mg/ Sodium (Chloride) 100 mls @ 67 mls/hr IVPB TTS [facility]; Pr otocol Last Admin: 08/27/18 20:14 Dose: 67 mls/hr Insulin Human Regular (Novolin R) 0 unit SC ACHS [facility]; Protocol Last Admin: 08/28/18 08:41 Dose: Not Given Ipratropium [place] (Atrovent) 0.5 mg IH RQ4 [facility] Last Admin: 08/28/18 04:00 Dose: Not Given Methylprednisolone (Solu-Medrol) 40 mg IVP DAILY [facility] Last Admin: 08/28/18 10:20 Dose: 40 mg Pantoprazole Sodium (Protonix Ec Tab) 40 mg PO DAILY [facility] Last Admin: 08/28/18 10:19 Dose: 40 mg Rosuvastatin Calcium (Crestor) 5 mg PO HS [facility] Last Admin: 08/27/18 22:41 Dose: 5 mg Physical Exam - Constitutional Appears: Non-toxic, No Acute Distress - Head Exam Head Exam: NORMAL INSPECTION - Eye Exam Eye Exam: Normal appearance - ENT Exam ENT Exam: Mucous Membranes Moist - Respiratory Exam Respiratory Exam: NORMAL BREATHING PATTERN. absent: Accessory Muscle Use, Respiratory Distress - Cardiovascular Exam Cardiovascular Exam: REGULAR RHYTHM. absent: Bradycardia, Tachycardia - GI/Abdominal Exam GI & Abdominal Exam: Soft. absent: Distended Additional comments: PD catheter in place - Extremities Exam Extremities exam: Positive for: normal inspection - Neurological Exam Neurological exam: Alert - Psychiatric Exam Psychiatric exam: Normal Affect, Normal Mood - Skin Skin Exam: Dry, Normal Color, Warm Results - Vital Signs Recent Vital Signs: Last Vital Signs Temp 98.2 F 08/28/18 07:00 Pulse 83 08/28/18 07:00 Resp 18 08/28/18 07:00 BP 149/79 08/28/18 07:00 Pulse Ox 95 08/28/18 07:00 - Labs Result Diagrams: 08/28/18 08:12 08/28/18 08:12 Labs: Laboratory Results - last 24 hr 08/27/18 08/27/18 08/27/18 11:02 16:34 21:25 WBC RBC Hgb Hct MCV MCH MCHC RDW Plt Count MPV Neut % (Auto) Lymph % (Auto) [place] % (Auto) Eos % (Auto) Baso % (Auto) Neut # (Auto) Lymph # (Auto) [place] # (Auto) Eos # (Auto) Baso # (Auto) Neutrophils % (Manual) Lymphocytes % (Manual) Monocytes % (Manual) Platelet Estimate Hypochromasia (manual) Poikilocytosis (manual Anisocytosis (manual) Microcytosis (manual) Macrocytosis (manual) Tear Drop Cells Ovalocytes Sodium Potassium Chloride Carbon Dioxide Anion Gap BUN Creatinine Est GFR ( Amer) Est GFR (Non-Af Amer) POC Glucose (mg/dL) 172 H 136 H 312 H Random Glucose Calcium Phosphorus Magnesium Total Bilirubin AST ALT Alkaline Phosphatase Total Protein Albumin Globulin Albumin/Globulin Ratio 08/28/18 08/28/18 08:12 08:12 WBC 6.9 RBC 2.26 L Hgb 7.2 L Hct 21.6 L MCV 95.7 H MCH 31.9 H MCHC 33.4 RDW 19.1 H Plt Count 194 MPV 7.8 Neut % (Auto) 84.8 H Lymph % (Auto) 7.2 L [place] % (Auto) 7.5 Eos % (Auto) 0.5 Baso % (Auto) 0.0 Neut # (Auto) 5.8 Lymph # (Auto) 0.5 L [place] # (Auto) 0.5 Eos # (Auto) 0.0 Baso # (Auto) 0.0 Neutrophils % (Manual) 86 H Lymphocytes % (Manual) 7 L Monocytes % (Manual) 7 Platelet Estimate Normal Hypochromasia (manual) Slight Poikilocytosis (manual Slight Anisocytosis (manual) Slight Microcytosis (manual) Slight Macrocytosis (manual) Slight Tear Drop Cells Slight Ovalocytes Slight Sodium 130 L Potassium 3.6 Chloride 97 L Carbon Dioxide 32 H Anion Gap 5 L BUN 12 Creatinine 2.4 H Est GFR ( Amer) 31 Est GFR (Non-Af Amer) 26 POC Glucose (mg/dL) Random Glucose 85 D Calcium 7.8 L Phosphorus 3.5 Magnesium 1.7 Total Bilirubin 0.9 AST 20 ALT 25 Alkaline Phosphatase 62 Total Protein 4.9 L Albumin 2.5 L Globulin 2.4 Albumin/Globulin Ratio 1.0 - Imaging and Cardiology CT scan - abdomen Status: Image reviewed by me, Report reviewed by me Assessment & Plan - Assessment and Plan (Free Text) Assessment: 83 y/o M w/ ESRD on HD TTS Plan: - f/u vein mapping - cont medical management per PMD - plan for AVF this week (tentatively Wednesday) Pt discussed w/ Dr. Oleg Ellis DO PGY3
--- NOTE | 2018-08-28 11:46 | CP.PCM.PN ---
Subjective - Date & Time of Evaluation Date of Evaluation: 08/28/18 Time of Evaluation: 11:46 - Subjective Subjective: Pulmonary follow up, Covering Dr Post The Patient was seen and examined at the bedside, Medical records reviewed, and management issues were discussed and formulated with the house staff. Events reviewed Awake, comfortable, NAD Alert and oriented to self. Breathing unlabored, on room air O2 sat 100%. Denies any chest pain, SOB or Palpitations Objective - Vital Signs/Intake and Output Vital Signs (last 24 hours): Temp Pulse Resp BP Pulse Ox 98.2 F 83 18 149/79 95 08/28/18 07:00 08/28/18 07:00 08/28/18 07:00 08/28/18 07:00 08/28/18 07:00 Intake and Output: 08/28/18 08/28/18 06:59 18:59 Intake Total 150 Output Total 375 Balance -225 - Medications Medications: Current Medications Benzonatate (Tessalon Perles) 100 mg PO TID [facility] Last Admin: 08/28/18 10:19 Dose: 100 mg Calcitriol (Rocaltrol) 0.25 mcg PO DAILY [facility] Last Admin: 08/28/18 10:19 Dose: 0.25 mcg Dextrose (Dextrose 50% Inj) 0 ml IV STAT PRN; Protocol PRN Reason: Hypoglycemia Protocol Last Admin: 08/26/18 06:59 Dose: 50 ml Dextrose (Glutose 15) 0 gm PO ONCE PRN; Protocol PRN Reason: Hypoglycemia Protocol Epoetin Justino (Procrit) 10,000 unit IV TTS [facility] Last Admin: 08/27/18 15:53 Dose: 10,000 unit Folic Acid (Folic Acid) 1 mg PO DAILY [facility] Last Admin: 08/28/18 10:19 Dose: 1 mg Glucagon (Glucagen Diagnostic Kit) 0 mg IM STAT PRN; Protocol PRN Reason: Hypoglycemia Protocol Dextrose (Dextrose 5% In Water 1000 Ml) 1,000 mls @ 0 mls/hr IV .Q0M PRN; Protocol PRN Reason: Hypoglycemia Protocol Piperacillin Sod/Tazobactam Sod (Zosyn 2.25 Gm Iv Premix) 2.25 gm in 50 mls @ 100 mls/hr IVPB Q8H [facility]; Protocol Last Admin: 08/28/18 09:03 Dose: 100 mls/hr Vancomycin HCl 500 mg/ Sodium (Chloride) 100 mls @ 67 mls/hr IVPB TTS [facility]; Protocol Last Admin: 08/27/18 20:14 Dose: 67 mls/hr Insulin Human Regular (Novolin R) 0 unit SC ACHS [facility]; Protocol Last Admin: 08/28/18 08:41 Dose: Not Given Ipratropium [place] (Atrovent) 0.5 mg IH RQ4 [facility] Last Admin: 08/28/18 04:00 Dose: Not Given Methylprednisolone (Solu-Medrol) 40 mg IVP DAILY [facility] Last Admin: 08/28/18 10:20 Dose: 40 mg Pantoprazole Sodium (Protonix Ec Tab) 40 mg PO DAILY [facility] Last Admin: 08/28/18 10:19 Dose: 40 mg Rosuvastatin Calcium (Crestor) 5 mg PO HS [facility] Last Admin: 08/27/18 22:41 Dose: 5 mg - Labs Labs: 08/28/18 08:12 08/28/18 08:12 PT 10.7 SECONDS (9.7-12.2) 08/24/18 14:32 INR 1.0 08/24/18 14:32 APTT 27 SECONDS (21-34) 08/24/18 14:32 - Constitutional Appears: Well, Non-toxic - Head Exam Head Exam: ATRAUMATIC, NORMAL INSPECTION - Neck Exam Neck Exam: Full ROM. absent: Normal Inspection - Respiratory Exam Respiratory Exam: Decreased Breath Sounds, Rhonchi. absent: Accessory Muscle Use, Chest Wall Tenderness, Rales, Wheezes - Cardiovascular Exam Cardiovascular Exam: REGULAR RHYTHM, RRR. absent: Bradycardia, Tachycardia, JVD - GI/Abdominal Exam GI & Abdominal Exam: Soft, Normal Bowel Sounds. absent: Tenderness Assessment and Plan (1) Pulmonary fibrosis Status: Acute (2) Bronchiectasis Status: Acute (3) COPD (chronic obstructive pulmonary disease) Status: Acute (4) ILD (interstitial lung disease) Status: Acute (5) Pneumonia Status: Acute - Assessment and Plan (Free Text) Assessment: Continue present medication Continue antibiotics for left lower lobe pneumonia Follow-up culture and sensitivity. Follow-up chest x-ray Methylprednisolone (Solu-Medrol) 40 mg IVP DAILY Discontinued Brio Ellipta. Nebulizer treatment. Antitussive with Tessalon Perles 100 mg PO TID
[2018-08-29] MEDS: Ipratropium 0.02% Inhal Soln (0.5 mg/2.5 ml) UD IH SCH ×7 (00:42→23:37)
[2018-08-29 06:55] LABS: BASO % 0.1 % (0.0-2.0); EOS % 0.5 % (0.0-4.0); LYMPH # 0.6 K/uL (1.0-4.3); LYMPH % 8.3 % (20.0-40.0); MEAN CELL VOLUME 94.5 fL (80.0-94.0); MEAN CORPUSCULAR HEMOGLOBIN 31.1 pg (27.0-31.0); MEAN CORPUSCULAR HGB CONC 32.9 g/dL (33.0-37.0); MEAN PLATELET VOLUME 7.9 fL (7.2-11.7); MONO # 0.6 K/uL (0.0-0.8); MONO % 8.4 % (0.0-10.0); NEUT # 6.1 K/uL (1.8-7.0); NEUT % 82.7 % (50.0-75.0); PLATELET COUNT 196 K/uL (130-400); RED CELL DISTRIBUTION WIDTH 18.9 % (11.5-14.5); WHITE BLOOD COUNT 7.4 K/uL (4.8-10.8)
[2018-08-29 06:59] LABS: HEMOGLOBIN 9.3 g/dL (12.0-18.0)
--- NOTE | 2018-08-29 07:17 | CP.PCM.PN ---
<Leroy Reed - Last Filed: 08/29/18 13:32> Subjective - Date & Time of Evaluation Date of Evaluation: 08/29/18 Time of Evaluation: 07:17 - Subjective Subjective: PGY-1 Medicine Progress Note for Dr. Bosch Patient seen and examined at bedside this AM s/p transfusion. No acute overnight events. Patient denies any further hematuria, states he still has some black stool. Some sob noted, chronic in nature. Does not want PD per Nephro, plan for AV fistula later this week after scheduled cystoscopy today. 12 pt ROS reviewed and otherwise negative. Objective - Vital Signs/Intake and Output Vital Signs (last 24 hours): Temp Pulse Resp BP Pulse Ox 98.8 F 62 16 125/75 95 08/29/18 04:30 08/29/18 04:30 08/29/18 04:30 08/29/18 04:30 08/29/18 04:30 Intake and Output: 08/29/18 08/29/18 06:59 18:59 Intake Total 325 Balance 325 - Medications Medications: Current Medications Benzonatate (Tessalon Perles) 100 mg PO TID [facility] Last Admin: 08/28/18 18:59 Dose: 100 mg Calcitriol (Rocaltrol) 0.25 mcg PO DAILY [facility] Last Admin: 08/28/18 10:19 Dose: 0.25 mcg Dextrose (Dextrose 50% Inj) 0 ml IV STAT PRN; Protocol PRN Reason: Hypoglycemia Protocol Last Admin: 08/26/18 06:59 Dose: 50 ml Dextrose (Glutose 15) 0 gm PO ONCE PRN; Protocol PRN Reason: Hypoglycemia Protocol Epoetin Justino (Procrit) 10,000 unit IV TTS [facility] Last Admin: 08/27/18 15:53 Dose: 10,000 unit Folic Acid (Folic Acid) 1 mg PO DAILY [facility] Last Admin: 08/28/18 10:19 Dose: 1 mg Glucagon (Glucagen Diagnostic Kit) 0 mg IM STAT PRN; Protocol PRN Reason: Hypoglycemia Protocol Dextrose (Dextrose 5% In Water 1000 Ml) 1,000 mls @ 0 mls/hr IV .Q0M PRN; Protocol PRN Reason: Hypoglycemia Protocol Piperacillin Sod/Tazobactam Sod (Zosyn 2.25 Gm Iv Premix) 2.25 gm in 50 mls @ 100 mls/hr IVPB Q8H [facility]; Protocol Last Admin: 08/28/18 23:34 Dose: 100 mls/hr Vancomycin HCl 500 mg/ Sodium (Chloride) 100 mls @ 67 mls/hr IVPB TTS [facility]; Protocol Last Admin: 08/27/18 20:14 Dose: 67 mls/hr Insulin Human Regular (Novolin R) 0 unit SC ACHS [facility]; Protocol Last Admin: 08/28/18 21:52 Dose: Not Given Ipratropium [place] (Atrovent) 0.5 mg IH RQ4 [facility] Last Admin: 08/29/18 03:45 Dose: Not Given Methylprednisolone (Solu-Medrol) 40 mg IVP DAILY [facility] Last Admin: 08/28/18 10:20 Dose: 40 mg Pantoprazole Sodium (Protonix Ec Tab) 40 mg PO DAILY [facility] Last Admin: 08/28/18 10:19 Dose: 40 mg Rosuvastatin Calcium (Crestor) 5 mg PO HS [facility] Last Admin: 08/28/18 21:50 Dose: 5 mg - Labs Labs: 08/29/18 06:47 08/28/18 08:12 PT 10.7 SECONDS (9.7-12.2) 08/24/18 14:32 INR 1.0 08/24/18 14:32 APTT 27 SECONDS (21-34) 08/24/18 14:32 - Constitutional Appears: Non-toxic, No Acute Distress, Chronically Ill - Head Exam Head Exam: ATRAUMATIC, NORMAL INSPECTION, NORMOCEPHALIC - Eye Exam Eye Exam: EOMI, Normal appearance, PERRL Pupil Exam: NORMAL ACCOMODATION - ENT Exam ENT Exam: Mucous Membranes Moist, Normal Exam - Neck Exam Neck Exam: Full ROM, Normal Inspection. absent: Tenderness - Respiratory Exam Respiratory Exam: Decreased Breath Sounds. absent: Accessory Muscle Use, Rhonchi, Wheezes, Respiratory Distress, Stridor - Cardiovascular Exam Cardiovascular Exam: REGULAR RHYTHM, +S1, +S2 - GI/Abdominal Exam GI & Abdominal Exam: Soft, Normal Bowel Sounds. absent: Distended, Firm, Guarding, Rigid, Tenderness, Rebound Additional comments: peritoneal cath dressing c/d/i - Extremities Exam Extremities Exam: Full ROM, Normal Capillary Refill, Normal Inspection - Neurological Exam Neurological Exam: Alert, Awake, Oriented x3 - Psychiatric Exam Psychiatric exam: Normal Affect, Normal Mood - Skin Skin Exam: Dry, Intact, Normal Color, Warm Assessment and Plan - Assessment and Plan (Free Text) Assessment: 82 year old male with past medical history of HTN, HLD, DM, ESRD on HD TTS, COPD, and chronic anemia presenting to ED for gross hematuria and black watery stools for the past 2 weeks. Plan: Hematuria Bilateral Nephrolithiasis -likely 2/ b/l nephrolithiasis -s/p 1 unit pRBC tranfusion over weekend -Hb 9.3 (08/29), continue to monitor and transfuse prn -Urology, Dr. coates, consulted -plan for cystoscopy today -EKG: sinus tachycardia, nonspecific T wave abnormality -CT abdomen/pelvis (08/24): B/L nephrolithiasis. Gallbladder distention with cholelithiasis. RLQ pelvic drainage tube catheter in place with small amount of free fluid in pelvic space. Colonic diverticulosis. RLL consolidation with exte nsive bibasilar bronchiectasis. Black watery stools, r/o GI bleed -no new episodes of overt bloody BM noted -occult stool x 2 negative -fecal leukocyte negative -ova and parasite is negative -c diff toxin negative -stool cx negative -GI (Dr. Bell) recs appreciated -colonoscopy report (08/26): internal hemorrhoids moderate and Grade I. Multiple diverticula in sigmoid and descending colon. New L lobe Infiltrate -Pulmonology (Dr. Post) recs appreciated -nebulizer treatment -Tessalon perrles added -repeat blood cultures negative x 24 hrs -Vancomycin IV TTS after HD -zosyn renally dosed -ID recs (Dr. Gaitan) appreciated ESRD on HD (TTS) -Nephrology (Dr. Dutton) on case -Vascular surgery (Dr. Dejesus) on case -pt does not want PD, will plan for AVF later this week per Vascular surgery recs -calcitriol 0.25 mcg PO daily -folic acid 1 mg PO daily Hx of COPD Pulmonary Fibrosis -CXR (08/24): Resolving opacity at R base, r/o PNA at L base. Bibasilar atelectasis, possible v small R pleural effusion -duonebs q4 new changed to atrovent q4 new due to agitation from albuterol -solumedrol 40 daily new DM -home meds held -ISS low -accuchecks achs -hypoglycemic protocol Hx HTN -Norvasc 5 mg PO daily Hx of HLD -Crestor 5 mg PO HS [facility] Anemia of chronic disease -2/2 underlying renal failure -continue to monitor, transfuse prn PPx, Diet, Disposition -DVT ppx: scds, oral AC held given acute bleeding -GI ppx: protonix 40 IV daily -Diet: Liquid diet -PT on case Dispo: f/u recs s/p cystoscopy. Plan for AVF this week (tentatively Wednesday) per Vascular Surgery Case discussed with Dr. Danitza Reed DO, PGY-1 <Anderson Bosch H - Last Filed: 08/29/18 13:57> Objective - Vital Signs/Intake and Output Vital Signs (last 24 hours): Temp Pulse Resp BP Pulse Ox 98.2 F 76 20 173/80 H 95 08/29/18 07:00 08/29/18 07:00 08/29/18 07:00 08/29/18 07:00 08/29/18 07:00 Intake and Output: 08/29/18 08/29/18 06:59 18:59 Intake Total 325 Balance 325 - Medications Medications: Current Medications Benzonatate (Tessalon Perles) 100 mg PO TID [facility] Last Admin: 08/29/18 09:50 Dose: Not Given Calcitriol (Rocaltrol) 0.25 mcg PO DAILY [facility] Last Admin: 08/29/18 09:50 Dose: Not Given Dextrose (Dextrose 50% Inj) 0 ml IV STAT PRN; Protocol PRN Reason: Hypoglycemia Protocol Last Admin: 08/26/18 06:59 Dose: 50 ml Dextrose (Glutose 15) 0 gm PO ONCE PRN; Protocol PRN Reason: Hypoglycemia Protocol Epoetin Just[place] (Procrit) 10,000 unit IV TTS [facility] Last Admin: 08/27/18 15:53 Dose: 10,000 unit Folic Acid (Folic Acid) 1 mg PO DAILY [facility] Last Admin: 08/29/18 09:50 Dose: Not Given Glucagon (Glucagen Diagnostic Kit) 0 mg IM STAT PRN; Protocol PRN Reason: Hypoglycemia Protocol Dextrose (Dextrose 5% In Water 1000 Ml) 1,000 mls @ 0 mls/hr IV .Q0M PRN; Protocol PRN Reason: Hypoglycemia Protocol Piperacillin Sod/Tazobactam Sod (Zosyn 2.25 Gm Iv Premix) 2.25 gm in 50 mls @ 100 mls/hr IVPB Q8H [facility]; Protocol Last Admin: 08/29/18 09:00 Dose: 100 mls/hr Vancomycin HCl 500 mg/ Sodium (Chloride) 100 mls @ 67 mls/hr IVPB TTS [facility]; Protocol Last Admin: 08/27/18 20:14 Dose: 67 mls/hr Dextrose/Sodium Chloride (Dextrose 5%-0.9% Ns 500 Ml) 500 mls @ 100 mls/hr IV .Q5H ONE Stop: 08/29/18 16:26 Last Admin: 08/29/18 11:50 Dose: 100 mls/hr Insulin Human Regular (Novolin R) 0 unit SC ACHS [facility]; Protocol Last Admin: 08/29/18 11:53 Dose: Not Given Ipratropium [place] (Atrovent) 0.5 mg IH RQ4 [facility] Last Admin: 08/29/18 12:22 Dose: Not Given Methylprednisolone (Solu-Medrol) 40 mg IVP DAILY [facility] Last Admin: 08/29/18 09:21 Dose: 40 mg Pantoprazole Sodium (Protonix Ec Tab) 40 mg PO DAILY [facility] Last Admin: 08/29/18 09:50 Dose: Not Given Rosuvastatin Calcium (Crestor) 5 mg PO HS [facility] Last Admin: 08/28/18 21:50 Dose: 5 mg - Labs Labs: 08/29/18 06:47 08/29/18 06:47 PT 10.7 SECONDS (9.7-12.2) 08/24/18 14:32 INR 1.0 08/24/18 14:32 APTT 27 SECONDS (21-34) 08/24/18 14:32 Attending/Attestation - Attestation I have personally seen and examined this patient.: Yes I have fully participated in the care of the patient.: Yes I have reviewed all pertinent clinical information, including history, physical exam and plan: Yes Notes (Text): 08/29/18 13:55 Medical attending: Patient was seen and examined by me. Agree with the above note by the resident The patient was pending cytoscopy today. currently Hgb is 9.3, this is following transfusion. He had colonscopy done previous week He was seen walking with PT earlier this morning in the hallway on his own Anderson Bosch
[2018-08-29 07:31] LABS: ALB/GLOB RATIO 1.1 (1.0-2.1); ALBUMIN 2.7 g/dL (3.5-5.0); CALCIUM 7.9 mg/dl (8.6-10.4)
[2018-08-29] MEDS: (Novolin R) Insulin Human Regular 100 units/ml vial SC SCH ×4 (07:57→21:41)
[2018-08-29] MEDS: Piperacill/Tazo 2.25gm in Dex 2.25 GM/50 ML BAG IVPB SCH ×2 (09:00→17:38)
[2018-08-29] MEDS: MethylPREDNISolone 40 mg Vial IVP SCH (09:21)
[2018-08-29] MEDS: Pantoprazole 40 mg EC Tab PO SCH (09:50)
[2018-08-29 10:13] LABS: LYMPHOCYTE 4 % (20-40); MONOCYTE 5 % (0-10); NEUTROPHIL 85 % (50-75); REACTIVE LYMPHOCYTES 6 % (0-0); TOTAL CELLS COUNTED 100
[2018-08-29 10:20] LABS: PLATELET ESTIMATE NORMAL (NORMAL)
[2018-08-29 10:23] LABS: ANISOCYTOSIS MODERATE
--- NOTE | 2018-08-29 11:40 | CP.PCM.PN ---
Subjective - Date & Time of Evaluation Date of Evaluation: 08/29/18 Time of Evaluation: 11:37 - Subjective Subjective: alert no more hematuria claims to still have blood per stool s/p blood transfusion BP usually stable- to monitor stable hemodialysis 3/2 does not want PD Objective - Vital Signs/Intake and Output Vital Signs (last 24 hours): Temp Pulse Resp BP Pulse Ox 98.2 F 76 20 173/80 H 95 08/29/18 07:00 08/29/18 07:00 08/29/18 07:00 08/29/18 07:00 08/29/18 07:00 Intake and Output: 08/29/18 08/29/18 06:59 18:59 Intake Total 325 Balance 325 - Medications Medications: Current Medications Benzonatate (Tessalon Perles) 100 mg PO TID [facility] Last Admin: 08/29/18 09:50 Dose: Not Given Calcitriol (Rocaltrol) 0.25 mcg PO DAILY [facility] Last Admin: 08/29/18 09:50 Dose: Not Given Dextrose (Dextrose 50% Inj) 0 ml IV STAT PRN; Protocol PRN Reason: Hypoglycemia Protocol Last Admin: 08/26/18 06:59 Dose: 50 ml Dextrose (Glutose 15) 0 gm PO ONCE PRN; Protocol PRN Reason: Hypoglycemia Protocol Epoetin [place] (Procrit) 10,000 unit IV TTS [facility] Last Admin: 08/27/18 15:53 Dose: 10,000 unit Folic Acid (Folic Acid) 1 mg PO DAILY [facility] Last Admin: 08/29/18 09:50 Dose: Not Given Glucagon (Glucagen Diagnostic Kit) 0 mg IM STAT PRN; Protocol PRN Reason: Hypoglycemia Protocol Dextrose (Dextrose 5% In Water 1000 Ml) 1,000 mls @ 0 mls/hr IV .Q0M PRN; Protocol PRN Reason: Hypoglycemia Protocol Piperacillin Sod/Tazobactam Sod (Zosyn 2.25 Gm Iv Premix) 2.25 gm in 50 mls @ 1 00 mls/hr IVPB Q8H [facility]; Protocol Last Admin: 08/29/18 09:00 Dose: 100 mls/hr Vancomycin HCl 500 mg/ Sodium (Chloride) 100 mls @ 67 mls/hr IVPB TTS [facility]; Protocol Last Admin: 08/27/18 20:14 Dose: 67 mls/hr Dextrose/Sodium Chloride (Dextrose 5%-0.9% Ns 500 Ml) 500 mls @ 100 mls/hr IV .Q5H ONE Stop: 08/29/18 16:26 Insulin Human Regular (Novolin R) 0 unit SC ACHS [facility]; Protocol Last Admin: 08/29/18 07:57 Dose: Not Given Ipratropium [place] (Atrovent) 0.5 mg IH RQ4 [facility] Last Admin: 08/29/18 09:00 Dose: Not Given Methylprednisolone (Solu-Medrol) 40 mg IVP DAILY [facility] Last Admin: 08/29/18 09:21 Dose: 40 mg Pantoprazole Sodium (Protonix Ec Tab) 40 mg PO DAILY [facility] Last Admin: 08/29/18 09:50 Dose: Not Given Rosuvastatin Calcium (Crestor) 5 mg PO HS [facility] Last Admin: 08/28/18 21:50 Dose: 5 mg - Labs Labs: 08/29/18 06:47 08/29/18 06:47 PT 10.7 SECONDS (9.7-12.2) 08/24/18 14:32 INR 1.0 08/24/18 14:32 APTT 27 SECONDS (21-34) 08/24/18 14:32 - Constitutional Appears: No Acute Distress, Chronically Ill - Head Exam Head Exam: ATRAUMATIC, NORMAL INSPECTION - Eye Exam Eye Exam: EOMI, Normal appearance - Neck Exam Neck Exam: Normal Inspection. absent: Tenderness - Respiratory Exam Respiratory Exam: Clear to Ausculation Bilateral, NORMAL BREATHING PATTERN - Cardiovascular Exam Cardiovascular Exam: REGULAR RHYTHM, +S1 - GI/Abdominal Exam GI & Abdominal Exam: Soft. absent: Tenderness - Extremities Exam Extremities Exam: Normal Inspection. absent: Tenderness - Neurological Exam Neurological Exam: Awake, CN II-XII Intact - Skin Skin Exam: Warm. absent: Dry Assessment and Plan (1) Hematuria Status: Acute (2) Anemia Status: Acute (3) ESRD on dialysis Status: Acute (4) Gastrointestinal hemorrhage Status: Acute (5) Bronchiectasis Status: Acute (6) COPD exacerbation Status: Acute - Assessment and Plan (Free Text) Plan: dialysis TTS monitor HTN AV access soon have PD cath removed
--- NOTE | 2018-08-29 12:33 | CP.PCM.PN ---
Subjective - Date & Time of Evaluation Date of Evaluation: 08/29/18 Time of Evaluation: 12:31 - Subjective Subjective: SURGERY NOTE FOR DR. SPAIN 83M seen and examined at bedside. Patient doing well denies abdominal pain. Objective - Vital Signs/Intake and Output Vital Signs (last 24 hours): Temp Pulse Resp BP Pulse Ox 98.2 F 76 20 173/80 H 95 08/29/18 07:00 08/29/18 07:00 08/29/18 07:00 08/29/18 07:00 08/29/18 07:00 Intake and Output: 08/29/18 08/29/18 06:59 18:59 Intake Total 325 Balance 325 - Medications Medications: Current Medications Benzonatate (Tessalon Perles) 100 mg PO TID [facility] Last Admin: 08/29/18 09:50 Dose: Not Given Calcitriol (Rocaltrol) 0.25 mcg PO DAILY [facility] Last Admin: 08/29/18 09:50 Dose: Not Given Dextrose (Dextrose 50% Inj) 0 ml IV STAT PRN; Protocol PRN Reason: Hypoglycemia Protocol Last Admin: 08/26/18 06:59 Dose: 50 ml Dextrose (Glutose 15) 0 gm PO ONCE PRN; Protocol PRN Reason: Hypoglycemia Protocol Epoetin Justino (Procrit) 10,000 unit IV TTS [facility] Last Admin: 08/27/18 15:53 Dose: 10,000 unit Folic Acid (Folic Acid) 1 mg PO DAILY [facility] Last Admin: 08/29/18 09:50 Dose: Not Given Glucagon (Glucagen Diagnostic Kit) 0 mg IM STAT PRN; Protocol PRN Reason: Hypoglycemia Protocol Dextrose (Dextrose 5% In Water 1000 Ml) 1,000 mls @ 0 mls/hr IV .Q0M PRN; Protocol PRN Reason: Hypoglycemia Protocol Piperacillin Sod/Tazobactam Sod (Zosyn 2.25 Gm Iv Premix) 2.25 gm in 50 mls @ 100 mls/hr IVPB Q8H [facility]; Protocol Last Admin: 08/29/18 09:00 Dose: 100 mls/hr Vancomycin HCl 500 mg/ Sodium (Chloride) 100 mls @ 67 mls/hr IVPB TTS [facility]; Protocol Last Admin: 08/27/18 20:14 Dose: 67 mls/hr Dextrose/Sodium Chloride (Dextrose 5%-0.9% Ns 500 Ml) 500 mls @ 100 mls/hr IV .Q5H ONE Stop: 08/29/18 16:26 Last Admin: 08/29/18 11:50 Dose: 100 mls/hr Insulin Human Regular (Novolin R) 0 unit SC ACHS [facility]; Protocol Last Admin: 08/29/18 11:53 Dose: Not Given Ipratropium [place] (Atrovent) 0.5 mg IH RQ4 [facility] Last Admin: 08/29/18 12:22 Dose: Not Given Methylprednisolone (Solu-Medrol) 40 mg IVP DAILY [facility] Last Admin: 08/29/18 09:21 Dose: 40 mg Pantoprazole Sodium (Protonix Ec Tab) 40 mg PO DAILY [facility] Last Admin: 08/29/18 09:50 Dose: Not Given Rosuvastatin Calcium (Crestor) 5 mg PO HS [facility] Last Admin: 08/28/18 21:50 Dose: 5 mg - Labs Labs: 08/29/18 06:47 08/29/18 06:47 PT 10.7 SECONDS (9.7-12.2) 08/24/18 14:32 INR 1.0 08/24/18 14:32 APTT 27 SECONDS (21-34) 08/24/18 14:32 - Constitutional Appears: Non-toxic, No Acute Distress - Respiratory Exam Respiratory Exam: Clear to Ausculation Bilateral, NORMAL BREATHING PATTERN - Cardiovascular Exam Cardiovascular Exam: REGULAR RHYTHM, +S1, +S2 - GI/Abdominal Exam GI & Abdominal Exam: Soft. absent: Distended, Firm, Rigid, Tenderness, Rebound Additional comments: PD catheter in place - Neurological Exam Neurological Exam: Alert, Awake - Psychiatric Exam Psychiatric exam: Normal Affect, Normal Mood - Skin Skin Exam: Dry, Intact, Normal Color, Warm Assessment and Plan - Assessment and Plan (Free Text) Assessment: 83M with ESRD need for AVF Plan: - plan to review vein mapping - will plan for OR Further recs discuss with Dr. Barbra Ley, PGY3
--- NOTE | 2018-08-29 13:15 | CP.PCM.PN ---
Subjective - Date & Time of Evaluation Date of Evaluation: 08/29/18 Time of Evaluation: 13:00 - Subjective Subjective: dictated Objective - Vital Signs/Intake and Output Vital Signs (last 24 hours): Temp Pulse Resp BP Pulse Ox 98.2 F 76 20 173/80 H 95 08/29/18 07:00 08/29/18 07:00 08/29/18 07:00 08/29/18 07:00 08/29/18 07:00 Intake and Output: 08/29/18 08/29/18 06:59 18:59 Intake Total 325 Balance 325 - Medications Medications: Current Medications Benzonatate (Tessalon Perles) 100 mg PO TID [facility] Last Admin: 08/29/18 09:50 Dose: Not Given Calcitriol (Rocaltrol) 0.25 mcg PO DAILY [facility] Last Admin: 08/29/18 09:50 Dose: Not Given Dextrose (Dextrose 50% Inj) 0 ml IV STAT PRN; Protocol PRN Reason: Hypoglycemia Protocol Last Admin: 08/26/18 06:59 Dose: 50 ml Dextrose (Glutose 15) 0 gm PO ONCE PRN; Protocol PRN Reason: Hypoglycemia Protocol Epoetin Justino (Procrit) 10,000 unit IV TTS [facility] Last Admin: 08/27/18 15:53 Dose: 10,000 unit Folic Acid (Folic Acid) 1 mg PO DAILY [facility] Last Admin: 08/29/18 09:50 Dose: Not Given Glucagon (Glucagen Diagnostic Kit) 0 mg IM STAT PRN; Protocol PRN Reason: Hypoglycemia Protocol Dextrose (Dextrose 5% In Water 1000 Ml) 1,000 mls @ 0 mls/hr IV .Q0M PRN; Protocol PRN Reason: Hypoglycemia Protocol Piperacillin Sod/Tazobactam Sod (Zosyn 2.25 Gm Iv Premix) 2.25 gm in 50 mls @ 100 mls/hr IVPB Q8H [facility]; Protocol Last Admin: 08/29/18 09:00 Dose: 100 mls/hr Vancomycin HCl 500 mg/ Sodium (Chloride) 100 mls @ 67 mls/hr IVPB TTS [facility]; Protocol Last Admin: 08/27/18 20:14 Dose: 67 mls/hr Dextrose/Sodium Chloride (Dextrose 5%-0.9% Ns 500 Ml) 500 mls @ 100 mls/hr IV .Q5H ONE Stop: 08/29/18 16:26 Last Admin: 08/29/18 11:50 Dose: 100 mls/hr Insulin Human Regular (Novolin R) 0 unit SC ACHS [facility]; Protocol Last Admin: 08/29/18 11:53 Dose: Not Given Ipratropium [place] (Atrovent) 0.5 mg IH RQ4 [facility] Last Admin: 08/29/18 12:22 Dose: Not Given Methylprednisolone (Solu-Medrol) 40 mg IVP DAILY [facility] Last Admin: 08/29/18 09:21 Dose: 40 mg Pantoprazole Sodium (Protonix Ec Tab) 40 mg PO DAILY [facility] Last Admin: 08/29/18 09:50 Dose: Not Given Rosuvastatin Calcium (Crestor) 5 mg PO HS [facility] Last Admin: 08/28/18 21:50 Dose: 5 mg - Labs Labs: 08/29/18 06:47 08/29/18 06:47 PT 10.7 SECONDS (9.7-12.2) 08/24/18 14:32 INR 1.0 08/24/18 14:32 APTT 27 SECONDS (21-34) 08/24/18 14:32
--- NOTE | 2018-08-29 14:41 | CP.PCM.PN ---
Subjective - Date & Time of Evaluation Date of Evaluation: 08/29/18 Time of Evaluation: 14:20 - Subjective Subjective: Patient seen and examined Cough and shortness of breath much improved Still has black stools Afebrile Objective - Vital Signs/Intake and Output Vital Signs (last 24 hours): Temp Pulse Resp BP Pulse Ox 98.2 F 76 20 173/80 H 95 08/29/18 07:00 08/29/18 07:00 08/29/18 07:00 08/29/18 07:00 08/29/18 07:00 Intake and Output: 08/29/18 08/29/18 06:59 18:59 Intake Total 325 Balance 325 - Medications Medications: Current Medications Benzonatate (Tessalon Perles) 100 mg PO TID [facility] Last Admin: 08/29/18 09:50 Dose: Not Given Calcitriol (Rocaltrol) 0.25 mcg PO DAILY [facility] Last Admin: 08/29/18 09:50 Dose: Not Given Dextrose (Dextrose 50% Inj) 0 ml IV STAT PRN; Protocol PRN Reason: Hypoglycemia Protocol Last Admin: 08/26/18 06:59 Dose: 50 ml Dextrose (Glutose 15) 0 gm PO ONCE PRN; Protocol PRN Reason: Hypoglycemia Protocol Epoetin Justino (Procrit) 10,000 unit IV TTS [facility] Last Admin: 08/27/18 15:53 Dose: 10,000 unit Folic Acid (Folic Acid) 1 mg PO DAILY [facility] Last Admin: 08/29/18 09:50 Dose: Not Given Glucagon (Glucagen Diagnostic Kit) 0 mg IM STAT PRN; Protocol PRN Reason: Hypoglycemia Protocol Dextrose (Dextrose 5% In Water 1000 Ml) 1,000 mls @ 0 mls/hr IV .Q0M PRN; Protocol PRN Reason: Hypoglycemia Protocol Piperacillin Sod/Tazobactam Sod (Zosyn 2.25 Gm Iv Premix) 2.25 gm in 50 mls @ 100 mls/hr IVPB Q8H [facility]; Protocol Last Admin: 08/29/18 09:00 Dose: 100 mls/hr Vancomycin HCl 500 mg/ Sodium (Chloride) 100 mls @ 67 mls/hr IVPB TTS [facility]; Protocol Last Admin: 08/27/18 20:14 Dose: 67 mls/hr Dextrose/Sodium Chloride (Dextrose 5%-0.9% Ns 500 Ml) 500 mls @ 100 mls/hr IV .Q5H ONE Stop: 08/29/18 16:26 Last Admin: 08/29/18 11:50 Dose: 100 mls/hr Insulin Human Regular (Novolin R) 0 unit SC ACHS [facility]; Protocol Last Admin: 08/29/18 11:53 Dose: Not Given Ipratropium [place] (Atrovent) 0.5 mg IH RQ4 [facility] Last Admin: 08/29/18 12:22 Dose: Not Given Methylprednisolone (Solu-Medrol) 40 mg IVP DAILY [facility] Last Admin: 08/29/18 09:21 Dose: 40 mg Pantoprazole Sodium (Protonix Ec Tab) 40 mg PO DAILY [facility] Last Admin: 08/29/18 09:50 Dose: Not Given Rosuvastatin Calcium (Crestor) 5 mg PO HS [facility] Last Admin: 08/28/18 21:50 Dose: 5 mg - Labs Labs: 08/29/18 06:47 08/29/18 06:47 PT 10.7 SECONDS (9.7-12.2) 08/24/18 14:32 INR 1.0 08/24/18 14:32 APTT 27 SECONDS (21-34) 08/24/18 14:32 - Head Exam Head Exam: ATRAUMATIC, NORMOCEPHALIC - ENT Exam ENT Exam: Mucous Membranes Moist - Neck Exam Neck Exam: Normal Inspection - Respiratory Exam Respiratory Exam: Rales, Rhonchi - Cardiovascular Exam Cardiovascular Exam: REGULAR RHYTHM - GI/Abdominal Exam GI & Abdominal Exam: Soft, Normal Bowel Sounds Assessment and Plan (1) Pneumonia Assessment & Plan: Continue antibiotics for left lower lobe pneumonia Follow-up chest x-ray Continue present medication Status: Acute (2) Anemia Status: Acute (3) ESRD on dialysis Status: Acute (4) Gastrointestinal hemorrhage Status: Acute (5) Hematuria Status: Acute (6) Pulmonary fibrosis Status: Chronic
[2018-08-29] MEDS ORDERED: Gentamicin 80 mg in 0.9% NS 160 MG/200 ML BAG IVPB ONE (15:01)
[2018-08-29] MEDS ORDERED: Lidocaine 2% Jelly (Uro-Jet) ONE (15:02)
[2018-08-29] MEDS ORDERED: HYDROmorphone 0.5 mg/0.5 ml ISec IVP PRN (15:26)
[2018-08-29] MEDS ORDERED: Propofol 10 mg/ml Inj (20 ML) ONE (15:26)
[2018-08-29] MEDS ORDERED: Midazolam 2 MG/2 ML VIAL ONE (15:27)
[2018-08-29] MEDS: Ciprofloxacin 400mg/200ml D5W 400 MG/200 ML BAG IVPB ONE ×2 (15:30→15:52)
--- NOTE | 2018-08-29 15:44 | PCM.SURG1 ---
Surgeon's Initial Post Op Note - Surgeon's Notes Surgeon: Idania Video Game Developer: Claudia Type of Anesthesia: General Mask, IV Sedation Anesthesia Administered By: Staff Pre-Operative Diagnosis: Hematuria Operative Findings: Enlarged prostate/trabeculated bladder Post-Operative Diagnosis: Hematuria secondary to EP Operation Performed: cysto Specimen/Specimens Removed: na Estimated Blood Loss: EBL {In ML}: 0 Blood Products Given: N/A Drains Used: No Drains Post-Op Condition: Good Date of Surgery/Procedure: 08/29/18 Time of Surgery/Procedure: 15:43 (pt should be started on proscar)
--- NOTE | 2018-08-29 19:37 | PN ---
DATE: 08/29/2018 SUBJECTIVE: The patient was seen today. He was awake and alert. He has a dialysis catheter on the right side. He does not want to do any abdominal PD (peritoneal dialysis) anymore. He discussed with Dr. Dutton. He has written in his notes that they are going to remove the PD catheter. He did come in with rectal bleed/hematuria, so he was supposed to have cystoscopy which he did. His last blood cultures that we did on dialysis are negative. He is on vancomycin post dialysis and he was on Zosyn, and he is on steroids at this time. Denies any cough at this time. Denies any headaches. Denies any abdominal pain. PHYSICAL EXAMINATION: GENERAL: A thin-built male. VITAL SIGNS: T-max is 98.2, pulse 76, blood pressure 173/80, respirations are 20. HEENT: Head is atraumatic. NECK: Supple. LUNGS: Clear. HEART: S1, S2, is regular. ABDOMEN: Soft, nontender. He has a PD catheter in place. EXTREMITIES: Remain without edema. LABORATORY DATA: Labs are noted. Labs show white count of 7.4, hemoglobin 9.3, hematocrit 28.4, platelet count is 196. His BUN is 21, creatinine is 4. Only one culture on 08/25/2018 was coagulase-negative staph, blood culture, this was probably peripheral and it was oxacillin sensitive. Repeat cultures have all been negative. He did not come with a fever. He came with bleeding at this time. Urine cultures are negative and the cultures which were done on dialysis are negative at this time. ASSESSMENT AND PLAN: Hence, we proceeded with urology procedure and they did a duplex scan for the hemodialysis access and probably he should get it. This one culture could be a contaminant, but he does have two catheters, so we will need to watch closely, and peritoneal dialysis catheter is going to come out any way, and once the fistula site is improved, this catheter will also come out. Melissa Gaitan MD
--- NOTE | 2018-08-29 21:45 | VASCLAB ---
Date of service: 08/29/2018 PROCEDURE: Upper Extremity Venous Mapping HISTORY: Vein mapping, Pre-op AVF PRIORS: None. TECHNIQUE: Bilateral upper extremity, internal jugular, subclavian, axillary, brachial, ulnar, radial, basilic and upper cephalic veins were evaluated. Flow was assessed with color Doppler, compressibility, assessment of phasic flow and augmentation response. Report prepared by ABILIO Banks FINDINGS: RIGHT: 1. Internal Jugular Vein: Compressibility - Fully compressible: Thrombus - None : Flow - Phasic 2. Subclavian Vein: Unable to examine. 3. Axillary Vein: Compressibility - Fully compressible: Thrombus - None 4. Brachial Vein: Compressibility - Fully compressible: Thrombus - None 5. Ulnar Vein:Compressibility - Fully compressible: Thrombus - None 6. Radial Vein:Compressibility - Fully compressible: Thrombus - None 7. Cephalic Vein: NOT VISUALIZED. 8. Basilic Vein:Compressibility - Fully compressible: thrombus - None 8.1. Upper Arm:Proximal Diameter: 0.59cm. Mid Diameter: 0.41cm. Distal Diameter: 0.31cm. 8.2. Forearm: Proximal Diameter: 0.16cm. LEFT: 1. Internal Jugular Vein: Compressibility - Fully compressible: Thrombus - None : Flow - Phasic 2. Subclavian Vein:Compressibility - Fully compressible: Thrombus - None : Flow - Phasic 3. Axillary Vein: Compressibility - Fully compressible: Thrombus - None 4. Brachial Vein: Compressibility - Fully compressible: Thrombus - None 5. Ulnar Vein:Compressibility - Fully compressible: Thrombus - None 6. Radial Vein:Compressibility - Fully compressible: Thrombus - None 7. Cephalic Vein: NOT VISUALIZED. 8. Basilic Vein:Compressibility - Fully compressible: thrombus - None 8.1. Upper Arm:Proximal Diameter: 0.18cm. Mid Diameter: 0.20cm. Distal Diameter: 0.19cm. 8.2. Forearm: NOT VISUALIZED. OTHER FINDINGS: No evidence of venous thrombosis in bilateral upper extremities. IMPRESSION: Refer to the above listed measurements for vein sizes.
[2018-08-30] MEDS: Piperacill/Tazo 2.25gm in Dex 2.25 GM/50 ML BAG IVPB SCH ×3 (00:20→17:00)
[2018-08-30] MEDS: Ipratropium 0.02% Inhal Soln (0.5 mg/2.5 ml) UD IH SCH ×6 (03:09→23:49)
--- NOTE | 2018-08-30 06:59 | CP.PCM.PN ---
<Leroy Reed - Last Filed: 08/30/18 13:25> Subjective - Date & Time of Evaluation Date of Evaluation: 08/30/18 Time of Evaluation: 06:59 - Subjective Subjective: PGY-1 Medicine Progress Note for Dr. Bosch Patient seen and examined at bedside, in no acute distress s/p cystoscopy with enlarged prostate findings. Patient was started on finasteride, as per Urology. No overnight events reported. No complaints of hematuria or acute bleeding episodes in stool. Patient due for HD session, planning for OR tomorrow for AV fistula. Patient made aware of plans. Objective - Vital Signs/Intake and Output Vital Signs (last 24 hours): Temp Pulse Resp BP Pulse Ox 97.9 F 72 20 155/80 H 95 08/29/18 23:25 08/29/18 23:25 08/29/18 23:25 08/29/18 23:25 08/29/18 23:25 Intake and Output: 08/29/18 08/30/18 18:59 06:59 Intake Total 615 400 Balance 615 400 - Medications Medications: Current Medications Benzonatate (Tessalon Perles) 100 mg PO TID [facility] Last Admin: 08/29/18 17:38 Dose: 100 mg Calcitriol (Rocaltrol) 0.25 mcg PO DAILY [facility] Last Admin: 08/29/18 09:50 Dose: Not Given Dextrose (Dextrose 50% Inj) 0 ml IV STAT PRN; Protocol PRN Reason: Hypoglycemia Protocol Last Admin: 08/26/18 06:59 Dose: 50 ml Dextrose (Glutose 15) 0 gm PO ONCE PRN; Protocol PRN Reason: Hypoglycemia Protocol Epoetin Justino (Procrit) 10,000 unit IV TTS [facility] Last Admin: 08/27/18 15:53 Dose: 10,000 unit Finasteride (Proscar) 5 mg PO DAILY [facility] Folic Acid (Folic Acid) 1 mg PO DAILY [facility] Last Admin: 08/29/18 09:50 Dose: Not Given Glucagon (Glucagen Diagnostic Kit) 0 mg IM STAT PRN; Protocol PRN Reason: Hypoglycemia Protocol Dextrose (Dextrose 5% In Water 1000 Ml) 1,000 mls @ 0 mls/hr IV .Q0M PRN; Protocol PRN Reason: Hypoglycemia Protocol Piperacillin Sod/Tazobactam Sod (Zosyn 2.25 Gm Iv Premix) 2.25 gm in 50 mls @ 100 mls/hr IVPB Q8H [facility]; Protocol Last Admin: 08/30/18 00:20 Dose: 100 mls/hr Vancomycin HCl 500 mg/ Sodium (Chloride) 100 mls @ 67 mls/hr IVPB TTS [facility]; Protocol Last Admin: 08/27/18 20:14 Dose: 67 mls/hr Insulin Human Regular (Novolin R) 0 unit SC ACHS [facility]; Protocol Last Admin: 08/29/18 21:41 Dose: Not Given Ipratropium [place] (Atrovent) 0.5 mg IH RQ4 [facility] Last Admin: 08/30/18 03:09 Dose: Not Given Methylprednisolone (Solu-Medrol) 40 mg IVP DAILY [facility] Last Admin: 08/29/18 09:21 Dose: 40 mg Pantoprazole Sodium (Protonix Ec Tab) 40 mg PO DAILY [facility] Last Admin: 08/29/18 09:50 Dose: Not Given Rosuvastatin Calcium (Crestor) 5 mg PO HS [facility] Last Admin: 08/29/18 21:51 Dose: 5 mg - Labs Labs: 08/29/18 06:47 08/29/18 06:47 PT 10.7 SECONDS (9.7-12.2) 08/24/18 14:32 INR 1.0 08/24/18 14:32 APTT 27 SECONDS (21-34) 08/24/18 14:32 - Constitutional Appears: Non-toxic, No Acute Distress, Chronically Ill - Head Exam Head Exam: ATRAUMATIC, NORMAL INSPECTION, NORMOCEPHALIC - Eye Exam Eye Exam: EOMI, Normal appearance, PERRL Pupil Exam: NORMAL ACCOMODATION - ENT Exam ENT Exam: Mucous Membranes Moist, Normal Exam - Neck Exam Neck Exam: Full ROM, Normal Inspection. absent: Tenderness - Respiratory Exam Respiratory Exam: Decreased Breath Sounds. absent: Accessory Muscle Use, Wheezes, Respiratory Distress - Cardiovascular Exam Cardiovascular Exam: REGULAR RHYTHM, +S1, +S2 - GI/Abdominal Exam GI & Abdominal Exam: Soft, Normal Bowel Sounds. absent: Distended, Firm, Guarding, Rigid, Tenderness - Extremities Exam Extremities Exam: Full ROM, Normal Capillary Refill, Normal Inspection. absent: Calf Tenderness, Pedal Edema - Back Exam Back Exam: NORMAL INSPECTION - Neurological Exam Neurological Exam: Alert, Awake, Oriented x3 - Skin Skin Exam: Dry, Intact, Normal Color, Warm Additional comments: R mediport intact Assessment and Plan - Assessment and Plan (Free Text) Assessment: 82 year old male with past medical history of HTN, HLD, DM, ESRD on HD TTS, COPD, and chronic anemia presenting to ED for gross hematuria and black watery stools for the past 2 weeks. Plan: Hematuria--resolved Bilateral Nephrolithiasis -likely / b/l nephrolithiasis -s/p 1 unit pRBC tranfusion over weekend -Hb 9.5 (08/30), continue to monitor and transfuse prn -Urology (Dr. Emerson) recs appreciated -enlarged prostate/trabeculated bladder -started on finasteride -EKG: sinus tachycardia, nonspecific T wave abnormality -CT abdomen/pelvis (08/24): B/L nephrolithiasis. Gallbladder distention with cholelithiasis. RLQ pelvic drainage tube catheter in place with small amount of free fluid in pelvic space. Colonic diverticulosis. RLL consolidation with extensive bibasilar bronchiectasis. Black watery stools, r/o GI bleed--resolved -no new episodes of overt bloody BM noted -occult stool x 2 negative -fecal leukocyte negative -ova and parasite is negative -c diff toxin negative -stool cx negative -GI (Dr. Bell) recs appreciated -colonoscopy report (08/26): internal hemorrhoids moderate and Grade I. Multiple diverticula in sigmoid and descending colon. New L lobe Infiltrate -Pulmonology (Dr. Post) recs appreciated -ID recs (Dr. Gaitan) appreciated -repeat blood cultures negative x 48 hrs -Atroven 0.5 mg IH q4 -Tessalon perrles 100 mg PO TID -Vancomycin IV TTS after HD -zosyn renally dosed ESRD on HD (TTS) -Nephrology (Dr. Dutton) on case -Vascular surgery (Dr. Dejesus) on case -Plan for OR tomorrow (08/30) for AVF -calcitriol 0.25 mcg PO daily -folic acid 1 mg PO daily Hx of COPD Pulmonary Fibrosis -CXR (08/24): Resolving opacity at R base, r/o PNA at L base. Bibasilar atelectasis, possible v small R pleural effusion -duonebs q4 new changed to atrovent q4 new due to agitation from albuterol -solumedrol 40 daily new DM -home meds held -ISS low -accuchecks achs -hypoglycemic protocol Hx HTN -Norvasc 5 mg PO daily Hx of HLD -Crestor 5 mg PO HS [facility] Anemia of chronic disease -2/2 underlying renal failure -continue to monitor, transfuse prn PPx, Diet, Disposition -DVT ppx: scds -GI ppx: protonix 40 IV daily -Diet: Liquid diet -PT on case Dispo: Plan for OR tomorrow (08/30) for AVF, per Vascular surgery Case discussed with Dr. Danitza Reed DO, PGY-1 <Anderson Bosch H - Last Filed: 08/30/18 16:17> Objective - Vital Signs/Intake and Output Vital Signs (last 24 hours): Temp Pulse Resp BP Pulse Ox 97.4 F L 75 16 171/80 H 96 08/30/18 12:30 08/30/18 12:30 08/30/18 12:30 08/30/18 12:30 08/30/18 12:30 Intake and Output: 08/30/18 08/30/18 06:59 18:59 Intake Total 400 450 Balance 400 450 - Medications Medications: Current Medications Benzonatate (Tessalon Perles) 100 mg PO TID [facility] Last Admin: 08/30/18 13:23 Dose: 100 mg Calcitriol (Rocaltrol) 0.25 mcg PO DAILY [facility] Last Admin: 08/30/18 08:59 Dose: 0.25 mcg Dextrose (Dextrose 50% Inj) 0 ml IV STAT PRN; Protocol PRN Reason: Hypoglycemia Protocol Last Admin: 08/26/18 06:59 Dose: 50 ml Dextrose (Glutose 15) 0 gm PO ONCE PRN; Protocol PRN Reason: Hypoglycemia Protocol Epoetin Justino (Procrit) 10,000 unit IV TTS [facility] Last Admin: 08/30/18 12:51 Dose: 10,000 unit Finasteride (Proscar) 5 mg PO DAILY [facility] Last Admin: 08/30/18 09:02 Dose: 5 mg Folic Acid (Folic Acid) 1 mg PO DAILY [facility] Last Admin: 08/30/18 08:59 Dose: 1 mg Glucagon (Glucagen Diagnostic Kit) 0 mg IM STAT PRN; Protocol PRN Reason: Hypoglycemia Protocol Dextrose (Dextrose 5% In Water 1000 Ml) 1,000 mls @ 0 mls/hr IV .Q0M PRN; Protocol PRN Reason: Hypoglycemia Protocol Piperacillin Sod/Tazobactam Sod (Zosyn 2.25 Gm Iv Premix) 2.25 gm in 50 mls @ 100 mls/hr IVPB Q8H [facility]; Protocol Last Admin: 08/30/18 08:52 Dose: 100 mls/hr Vancomycin HCl 500 mg/ Sodium (Chloride) 100 mls @ 67 mls/hr IVPB TTS [facility]; Protocol Last Admin: 08/30/18 13:25 Dose: 67 mls/hr Insulin Human Regular (Novolin R) 0 unit SC ACHS [facility]; Protocol Last Admin: 08/30/18 11:30 Dose: Not Given Ipratropium [place] (Atrovent) 0.5 mg IH RQ4 [facility] Last Admin: 08/30/18 11:38 Dose: Not Given Methylprednisolone (Solu-Medrol) 40 mg IVP DAILY [facility] Last Admin: 08/30/18 08:59 Dose: 40 mg Pantoprazole Sodium (Protonix Ec Tab) 40 mg PO DAILY [facility] Last Admin: 08/30/18 08:59 Dose: 40 mg Rosuvastatin Calcium (Crestor) 5 mg PO HS [facility] Last Admin: 08/29/18 21:51 Dose: 5 mg - Labs Labs: 08/30/18 06:54 08/30/18 06:54 PT 10.7 SECONDS (9.7-12.2) 08/24/18 14:32 INR 1.0 08/24/18 14:32 APTT 27 SECONDS (21-34) 08/24/18 14:32 Attending/Attestation - Attestation I have personally seen and examined this patient.: Yes I have fully participated in the care of the patient.: Yes I have reviewed all pertinent clinical information, including history, physical exam and plan: Yes Notes (Text): 08/30/18 16:09 Medical attending: Patient was seen and examined by me. Agree with the above note by the resident The patient was not in any acute distress when we came and saw His HgB remains stable at this time, he previously had a PRBC over the weekend He yesterday had a cytoscopsy done as well Tommorow pending surgery for AVF Anderson Bosch
[2018-08-30 07:03] LABS: BASO % 0.2 % (0.0-2.0); EOS % 0.4 % (0.0-4.0); HEMOGLOBIN 9.5 g/dL (12.0-18.0); LYMPH # 0.6 K/uL (1.0-4.3); MEAN CELL VOLUME 95.3 fL (80.0-94.0); MEAN CORPUSCULAR HEMOGLOBIN 31.2 pg (27.0-31.0); MEAN CORPUSCULAR HGB CONC 32.7 g/dL (33.0-37.0); MEAN PLATELET VOLUME 7.8 fL (7.2-11.7); MONO # 0.6 K/uL (0.0-0.8); MONO % 6.7 % (0.0-10.0); NEUT # 7.6 K/uL (1.8-7.0); NEUT % 85.7 % (50.0-75.0); PLATELET COUNT 221 K/uL (130-400); RBC 3.05 Mil/uL (4.40-5.90); RED CELL DISTRIBUTION WIDTH 19.2 % (11.5-14.5); WHITE BLOOD COUNT 8.9 K/uL (4.8-10.8)
[2018-08-30 07:22] LABS: ALBUMIN 2.5 g/dL (3.5-5.0); CALCIUM 7.3 mg/dl (8.6-10.4)
--- NOTE | 2018-08-30 07:30 | OP ---
PROCEDURE DATE: 08/29/2018 PREOPERATIVE DIAGNOSIS: Gross hematuria. POSTOPERATIVE DIAGNOSES: Gross hematuria secondary to benign prostatic hyperplasia with significant bladder outlet obstruction and compensatory tuberculation of bladder with diverticula formation. DESCRIPTION OF PROCEDURE: The procedure is as follows: The patient was asked to sign the detailed informed consent after full explanation of the risks, complications, and alternatives to this procedure he signed the consent, accepted the risks and was brought into the room and a time-out was taken according to the rules and regulations of [facility]. After receiving prophylactic antibiotics and careful draping and prepping, he was cystoscoped with #21 Storz panendoscope. The pendulous and membranous urethras were normal. The prostatic urethra showed trilobar hypertrophy with significant bladder outlet obstruction. The bladder was entered atraumatically. There was no evidence of urothelial tumor or stone. There was heavy tuberculation of bladder with diverticulum formation. Based on the above and the negative CAT scan for upper tract lesions, it appears that the hematuria is due to enlarged prostate. We suggest that the patient be placed on Proscar 5 mg p.o. daily continuously, permanently, and that he have urological followup with any further hematuria. These recommendations were given to the resident, Dr. Leroy Reed. Toby Emerson MD
[2018-08-30] MEDS: (Novolin R) Insulin Human Regular 100 units/ml vial SC SCH ×4 (08:43→21:50)
[2018-08-30] MEDS: MethylPREDNISolone 40 mg Vial IVP SCH (08:59)
[2018-08-30] MEDS: Pantoprazole 40 mg EC Tab PO SCH (08:59)
--- NOTE | 2018-08-30 09:41 | CP.PCM.PN ---
Subjective - Date & Time of Evaluation Date of Evaluation: 08/30/18 Time of Evaluation: 07:10 - Subjective Subjective: Progress note for Dr. Dejesus. Patient seen and evaluated at bedside. Patient is sitting up in bed, in no acute distress. States he feels "so-so," but has no complaints at this time. Denies fever, chills, headache, weakness, nausea and vomiting. Objective - Vital Signs/Intake and Output Vital Signs (last 24 hours): Temp Pulse Resp BP Pulse Ox 97.6 F 79 20 153/71 H 95 08/30/18 07:00 08/30/18 07:00 08/30/18 07:00 08/30/18 07:00 08/30/18 07:00 Intake and Output: 08/30/18 08/30/18 06:59 18:59 Intake Total 400 Balance 400 - Medications Medications: Current Medications Benzonatate (Tessalon Perles) 100 mg PO TID [facility] Last Admin: 08/30/18 08:59 Dose: 100 mg Calcitriol (Rocaltrol) 0.25 mcg PO DAILY [facility] Last Admin: 08/30/18 08:59 Dose: 0.25 mcg Dextrose (Dextrose 50% Inj) 0 ml IV STAT PRN; Protocol PRN Reason: Hypoglycemia Protocol Last Admin: 08/26/18 06:59 Dose: 50 ml Dextrose (Glutose 15) 0 gm PO ONCE PRN; Protocol PRN Reason: Hypoglycemia Protocol Epoetin Justino (Procrit) 10,000 unit IV TTS [facility] Last Admin: 08/27/18 15:53 Dose: 10,000 unit Finasteride (Proscar) 5 mg PO DAILY [facility] Last Admin: 08/30/18 09:02 Dose: 5 mg Folic Acid (Folic Acid) 1 mg PO DAILY [facility] Last Admin: 08/30/18 08:59 Dose: 1 mg Glucagon (Glucagen Diagnostic Kit) 0 mg IM STAT PRN; Protocol PRN Reason: Hypoglycemia Protocol Dextrose (Dextrose 5% In Water 1000 Ml) 1,000 mls @ 0 mls/hr IV .Q0M PRN; Protocol PRN Reason: Hypoglycemia Protocol Piperacillin Sod/Tazobactam Sod (Zosyn 2.25 Gm Iv Premix) 2.25 gm in 50 mls @ 100 mls/hr IVPB Q8H [facility]; Protocol Last Admin: 08/30/18 08:52 Dose: 100 mls/hr Vancomycin HCl 500 mg/ Sodium (Chloride) 100 mls @ 67 mls/hr IVPB TTS [facility]; Protocol Last Admin: 08/27/18 20:14 Dose: 67 mls/hr Insulin Human Regular (Novolin R) 0 unit SC ACHS [facility]; Protocol Last Admin: 08/30/18 08:43 Dose: 1 units Ipratropium [place] (Atrovent) 0.5 mg IH RQ4 [facility] Last Admin: 08/30/18 07:56 Dose: 0.5 mg Methylprednisolone (Solu-Medrol) 40 mg IVP DAILY [facility] Last Admin: 08/30/18 08:59 Dose: 40 mg Pantoprazole Sodium (Protonix Ec Tab) 40 mg PO DAILY [facility] Last Admin: 08/30/18 08:59 Dose: 40 mg Rosuvastatin Calcium (Crestor) 5 mg PO HS [facility] Last Admin: 08/29/18 21:51 Dose: 5 mg - Labs Labs: 08/30/18 06:54 08/30/18 06:54 PT 10.7 SECONDS (9.7-12.2) 08/24/18 14:32 INR 1.0 08/24/18 14:32 APTT 27 SECONDS (21-34) 08/24/18 14:32 - Constitutional Appears: Non-toxic, No Acute Distress - Head Exam Head Exam: ATRAUMATIC, NORMOCEPHALIC - Eye Exam Eye Exam: Normal appearance - ENT Exam ENT Exam: Mucous Membranes Moist - Neck Exam Neck Exam: Normal Inspection - Respiratory Exam Respiratory Exam: NORMAL BREATHING PATTERN. absent: Respiratory Distress - Cardiovascular Exam Additional comments: permacath to R chest - Extremities Exam Extremities Exam: Normal Inspection - Neurological Exam Neurological Exam: Alert, Awake, Oriented x3 - Psychiatric Exam Psychiatric exam: Normal Affect, Normal Mood Assessment and Plan - Assessment and Plan (Free Text) Assessment: 83M with ESRD, vascular surgery consulted for AVF Plan: -Hemodialysis access US: no venous thrombosis in bilateral UE -Plan for OR tomorrow for AVF Further recs as per Dr. Dejesus. Rosemary Barker, PGY-1.
[2018-08-30 09:57] LABS: ANISOCYTOSIS MODERATE; BANDS 1 % (0-2); LYMPHOCYTE 5 % (20-40); MONOCYTE 9 % (0-10); NEUTROPHIL 84 % (50-75); PLATELET ESTIMATE NORMAL (NORMAL); REACTIVE LYMPHOCYTES 1 % (0-0); TOTAL CELLS COUNTED 100
--- NOTE | 2018-08-30 11:54 | CP.PCM.PN ---
Subjective - Date & Time of Evaluation Date of Evaluation: 08/30/18 Time of Evaluation: 11:50 - Subjective Subjective: presently on dialysis comfortable complains of cough and diarrhea ROS no chest pain no hemopytysis no abd pain,n,v.persistent diarrhea Objective - Vital Signs/Intake and Output Vital Signs (last 24 hours): Temp Pulse Resp BP Pulse Ox 97.5 F L 75 18 166/83 H 97 08/30/18 09:30 08/30/18 09:30 08/30/18 09:30 08/30/18 09:45 08/30/18 09:30 Intake and Output: 08/30/18 08/30/18 06:59 18:59 Intake Total 400 Balance 400 - Medications Medications: Current Medications Benzonatate (Tessalon Perles) 100 mg PO TID [facility] Last Admin: 08/30/18 08:59 Dose: 100 mg Calcitriol (Rocaltrol) 0.25 mcg PO DAILY [facility] Last Admin: 08/30/18 08:59 Dose: 0.25 mcg Dextrose (Dextrose 50% Inj) 0 ml IV STAT PRN; Protocol PRN Reason: Hypoglycemia Protocol Last Admin: 08/26/18 06:59 Dose: 50 ml Dextrose (Glutose 15) 0 gm PO ONCE PRN; Protocol PRN Reason: Hypoglycemia Protocol Epoetin Justino (Procrit) 10,000 unit IV TTS [facility] Last Admin: 08/27/18 15:53 Dose: 10,000 unit Finasteride (Proscar) 5 mg PO DAILY [facility] Last Admin: 08/30/18 09:02 Dose: 5 mg Folic Acid (Folic Acid) 1 mg PO DAILY [facility] Last Admin: 08/30/18 08:59 Dose: 1 mg Glucagon (Glucagen Diagnostic Kit) 0 mg IM STAT PRN; Protocol PRN Reason: Hypoglycemia Protocol Dextrose (Dextrose 5% In Water 1000 Ml) 1,000 mls @ 0 mls/hr IV .Q0M PRN; Protocol PRN Reason: Hypoglycemia Protocol Piperacillin Sod/Tazobactam Sod (Zosyn 2.25 Gm Iv Premix) 2.25 gm in 50 mls @ 100 mls/hr IVPB Q8H [facility]; Protocol Last Admin: 08/30/18 08:52 Dose: 100 mls/hr Vancomycin HCl 500 mg/ Sodium (Chloride) 100 mls @ 67 mls/hr IVPB TTS [facility]; Protocol Last Admin: 08/27/18 20:14 Dose: 67 mls/hr Insulin Human Regular (Novolin R) 0 unit SC ACHS [facility]; Protocol Last Admin: 08/30/18 08:43 Dose: 1 units Ipratropium [place] (Atrovent) 0.5 mg IH RQ4 [facility] Last Admin: 08/30/18 11:38 Dose: Not Given Methylprednisolone (Solu-Medrol) 40 mg IVP DAILY [facility] Last Admin: 08/30/18 08:59 Dose: 40 mg Pantoprazole Sodium (Protonix Ec Tab) 40 mg PO DAILY [facility] Last Admin: 08/30/18 08:59 Dose: 40 mg Rosuvastatin Calcium (Crestor) 5 mg PO HS [facility] Last Admin: 08/29/18 21:51 Dose: 5 mg - Labs Labs: 08/30/18 06:54 08/30/18 06:54 PT 10.7 SECONDS (9.7-12.2) 08/24/18 14:32 INR 1.0 08/24/18 14:32 APTT 27 SECONDS (21-34) 08/24/18 14:32 - Constitutional Appears: No Acute Distress - Eye Exam Eye Exam: Normal appearance - ENT Exam ENT Exam: Mucous Membranes Moist - Respiratory Exam Respiratory Exam: Clear to Ausculation Bilateral, NORMAL BREATHING PATTERN - Cardiovascular Exam Cardiovascular Exam: REGULAR RHYTHM - GI/Abdominal Exam GI & Abdominal Exam: Soft. absent: Distended, Tenderness - Extremities Exam Extremities Exam: absent: Calf Tenderness - Neurological Exam Neurological Exam: Alert, Awake - Skin Skin Exam: Dry, Warm Assessment and Plan (1) Diverticulosis large intestine w/o perforation or abscess w/bleeding Status: Acute (2) ESRD on dialysis Status: Acute (3) Pulmonary fibrosis Status: Chronic (4) COPD (chronic obstructive pulmonary disease) Status: Acute - Assessment and Plan (Free Text) Assessment: try to remove 1.5 kg
[2018-08-30] MEDS: Epoetin Alfa 10,000 unit/ml Dialysis IV SCH (12:51)
--- NOTE | 2018-08-30 15:20 | CP.PCM.PN ---
Subjective - Date & Time of Evaluation Date of Evaluation: 08/30/18 Time of Evaluation: 14:45 - Subjective Subjective: dictated Objective - Vital Signs/Intake and Output Vital Signs (last 24 hours): Temp Pulse Resp BP Pulse Ox 97.4 F L 75 16 171/80 H 96 08/30/18 12:30 08/30/18 12:30 08/30/18 12:30 08/30/18 12:30 08/30/18 12:30 Intake and Output: 08/30/18 08/30/18 06:59 18:59 Intake Total 400 450 Balance 400 450 - Medications Medications: Current Medications Benzonatate (Tessalon Perles) 100 mg PO TID [facility] Last Admin: 08/30/18 13:23 Dose: 100 mg Calcitriol (Rocaltrol) 0.25 mcg PO DAILY [facility] Last Admin: 08/30/18 08:59 Dose: 0.25 mcg Dextrose (Dextrose 50% Inj) 0 ml IV STAT PRN; Protocol PRN Reason: Hypoglycemia Protocol Last Admin: 08/26/18 06:59 Dose: 50 ml Dextrose (Glutose 15) 0 gm PO ONCE PRN; Protocol PRN Reason: Hypoglycemia Protocol Epoetin Justino (Procrit) 10,000 unit IV TTS [facility] Last Admin: 08/30/18 12:51 Dose: 10,000 unit Finasteride (Proscar) 5 mg PO DAILY [facility] Last Admin: 08/30/18 09:02 Dose: 5 mg Folic Acid (Folic Acid) 1 mg PO DAILY [facility] Last Admin: 08/30/18 08:59 Dose: 1 mg Glucagon (Glucagen Diagnostic Kit) 0 mg IM STAT PRN; Protocol PRN Reason: Hypoglycemia Protocol Dextrose (Dextrose 5% In Water 1000 Ml) 1,000 mls @ 0 mls/hr IV .Q0M PRN; Protocol PRN Reason: Hypoglycemia Protocol Piperacillin Sod/Tazobactam Sod (Zosyn 2.25 Gm Iv Premix) 2.25 gm in 50 mls @ 100 mls/hr IVPB Q8H [facility]; Protocol Last Admin: 08/30/18 08:52 Dose: 100 mls/hr Vancomycin HCl 500 mg/ Sodium (Chloride) 100 mls @ 67 mls/hr IVPB TTS [facility]; Protocol Last Admin: 08/30/18 13:25 Dose: 67 mls/hr Insulin Human Regular (Novolin R) 0 unit SC ACHS [facility]; Protocol Last Admin: 08/30/18 11:30 Dose: Not Given Ipratropium [place] (Atrovent) 0.5 mg IH RQ4 [facility] Last Admin: 08/30/18 11:38 Dose: Not Given Methylprednisolone (Solu-Medrol) 40 mg IVP DAILY [facility] Last Admin: 08/30/18 08:59 Dose: 40 mg Pantoprazole Sodium (Protonix Ec Tab) 40 mg PO DAILY [facility] Last Admin: 08/30/18 08:59 Dose: 40 mg Rosuvastatin Calcium (Crestor) 5 mg PO HS [facility] Last Admin: 08/29/18 21:51 Dose: 5 mg - Labs Labs: 08/30/18 06:54 08/30/18 06:54 PT 10.7 SECONDS (9.7-12.2) 08/24/18 14:32 INR 1.0 08/24/18 14:32 APTT 27 SECONDS (21-34) 08/24/18 14:32
--- NOTE | 2018-08-30 15:36 | RAD ---
Date of service: 08/30/2018 HISTORY: preop COMPARISON: 08/24/2018 FINDINGS: LUNGS: Bubbly opacities at each lung base left side greater than right are present similar to those noted previously. Apparent simulates extensive bronchiectasis. PLEURA: A minimal right pleural effusion is possible. The right costophrenic angle is blunted-chronic right pleural thickening can simulate this. No pneumothorax apparent. CARDIOVASCULAR: There is presence of aortic atherosclerotic calcification on x-ray. Mild cardiomegaly-similar mild pulmonary venous and/or interstitial edema is suspect. The right tunnel dialysis catheter is in place. OSSEOUS STRUCTURES: Bilateral shoulder arthrosis. Thoracic spondylosis. VISUALIZED UPPER ABDOMEN: Normal. OTHER FINDINGS: None. IMPRESSION: Similar bibasilar bronchiectasis-slight differences in technique are believed to explain most of the changes noted. Findings are more pronounced at the left lung base in the right base. Blunted right costophrenic angle consistent with similar small right pleural effusion and/or pleural thickening. Mild cardiomegaly and mild pulmonary venous congestion is suspect. Since the prior exam no interval changes perceived.
[2018-08-30 16:11] LABS: ABG ALLEN TEST POS; ARTERIAL BLOOD GAS HCO3 29.2 mmol/L (21-28); ARTERIAL BLOOD GAS HEMOGLOBIN 9.8 g/dL (11.7-17.4); ARTERIAL BLOOD GAS O2 SAT 96.9 % (95-98); ARTERIAL BLOOD GAS PCO2 42 mm/Hg (35-45); ARTERIAL BLOOD GAS PH 7.46 (7.35-7.45); ARTERIAL BLOOD GAS PO2 67 mm/Hg (80-100); ARTERIAL BLOOD GAS TCO2 31.2 mmol/L (22-28)
--- NOTE | 2018-08-30 23:20 | PN ---
DATE: 08/30/2018 SUBJECTIVE: He went for dialysis. He denies much complaints. He still says he is coughing, brings out some phlegm. PHYSICAL EXAMINATION: VITAL SIGNS: T-max is 98.4, pulse 84, blood pressure is 162/78, respirations are 20. HEENT: Head is atraumatic and normocephalic. Right dialysis catheter present. LUNGS: Have occasional rhonchi. HEART: S1, S2 are regular. ABDOMEN: Soft, nontender. He does have a peritoneal dialysis catheter which still remains present. EXTREMITIES: Have no edema. LABORATORY DATA: Labs are noted. Labs show white count is 8.9, hemoglobin 9.5, hematocrit is 29, platelet count is 221, and he had an ABG done today which shows pH of 7.46, pO2 is 31, saturation 96.9, and pO2 is 67, CO2 is 42, so looks okay, and micro cultures are all negative. So I am not sure this was probably peripheral culture because this is probably not from the dialysis catheter and may have been a contaminant as I am not convinced that several cultures are negative and he did not come with a fever. He came with GI bleeding. So at this time, he is waiting for cystoscopy, and then, he just recommended another medicine. So I think we will discontinue Zosyn as he had complaints of diarrhea today. We will follow. Melissa Gaitan MD
[2018-08-31] MEDS: Ipratropium 0.02% Inhal Soln (0.5 mg/2.5 ml) UD IH SCH ×5 (03:12→19:27)
[2018-08-31 07:31] LABS: BASO % 0.2 % (0.0-2.0); EOS # 0.1 K/uL (0.0-0.7); EOS % 1.4 % (0.0-4.0); HEMOGLOBIN 10.2 g/dL (12.0-18.0); LYMPH # 0.8 K/uL (1.0-4.3); LYMPH % 7.9 % (20.0-40.0); MEAN CELL VOLUME 95.6 fL (80.0-94.0); MEAN CORPUSCULAR HEMOGLOBIN 31.2 pg (27.0-31.0); MEAN CORPUSCULAR HGB CONC 32.6 g/dL (33.0-37.0); MONO # 0.7 K/uL (0.0-0.8); MONO % 7.2 % (0.0-10.0); NEUT # 7.9 K/uL (1.8-7.0); NEUT % 83.3 % (50.0-75.0); NRBC % 0.2 % (0.0-2.0); PLATELET COUNT 243 K/uL (130-400); RBC 3.26 Mil/uL (4.40-5.90); RED CELL DISTRIBUTION WIDTH 18.8 % (11.5-14.5); WHITE BLOOD COUNT 9.5 K/uL (4.8-10.8)
--- NOTE | 2018-08-31 07:35 | CP.PCM.PN ---
<Leroy Reed - Last Filed: 08/31/18 13:58> Subjective - Date & Time of Evaluation Date of Evaluation: 08/31/18 Time of Evaluation: 07:35 - Subjective Subjective: PGY-1 Medicine Progress Note for Dr. Bosch Patient seen and evaluated this AM. No acute overnight events reported. Hematuria has resolved, no acute bleeding episode evident. Patient endorses some non-bloody diarrhea, will d/c zosyn per ID recs as patient has had negative cultures thus far and diarrhea now present. Patient is scheduled for AVF placement today per Vascular Surgery, with patient aware of plans. Objective - Vital Signs/Intake and Output Vital Signs (last 24 hours): Temp Pulse Resp BP Pulse Ox 97.8 F 76 20 162/79 H 95 08/30/18 23:05 08/30/18 23:05 08/30/18 23:05 08/30/18 23:05 08/30/18 23:05 - Medications Medications: Current Medications Benzonatate (Tessalon Perles) 100 mg PO TID [facility] Last Admin: 08/30/18 17:21 Dose: 100 mg Calcitriol (Rocaltrol) 0.25 mcg PO DAILY [facility] Last Admin: 08/30/18 08:59 Dose: 0.25 mcg Dextrose (Dextrose 50% Inj) 0 ml IV STAT PRN; Protocol PRN Reason: Hypoglycemia Protocol Last Admin: 08/26/18 06:59 Dose: 50 ml Dextrose (Glutose 15) 0 gm PO ONCE PRN; Protocol PRN Reason: Hypoglycemia Protocol Epoetin Justino (Procrit) 10,000 unit IV TTS [facility] Last Admin: 08/30/18 12:51 Dose: 10,000 unit Finasteride (Proscar) 5 mg PO DAILY [facility] Last Admin: 08/30/18 09:02 Dose: 5 mg Folic Acid (Folic Acid) 1 mg PO DAILY [facility] Last Admin: 08/30/18 08:59 Dose: 1 mg Glucagon (Glucagen Diagnostic Kit) 0 mg IM STAT PRN; Protocol PRN Reason: Hypoglycemia Protocol Dextrose (Dextrose 5% In Water 1000 Ml) 1,000 mls @ 0 mls/hr IV .Q0M PRN; Protocol PRN Reason: Hypoglycemia Protocol Vancomycin HCl 500 mg/ Sodium (Chloride) 100 mls @ 67 mls/hr IVPB TTS [facility]; Protocol Last Admin: 08/30/18 13:25 Dose: 67 mls/hr Insulin Human Regular (Novolin R) 0 unit SC ACHS [facility]; Protocol Last Admin: 08/30/18 21:50 Dose: Not Given Ipratropium [place] (Atrovent) 0.5 mg IH RQ4 [facility] Last Admin: 08/31/18 03:12 Dose: 0.5 mg Methylprednisolone (Solu-Medrol) 40 mg IVP DAILY [facility] Last Admin: 08/30/18 08:59 Dose: 40 mg Pantoprazole Sodium (Protonix Ec Tab) 40 mg PO DAILY [facility] Last Admin: 08/30/18 08:59 Dose: 40 mg Rosuvastatin Calcium (Crestor) 5 mg PO HS [facility] Last Admin: 08/30/18 22:11 Dose: 5 mg - Labs Labs: 08/30/18 06:54 08/30/18 06:54 PT 10.7 SECONDS (9.7-12.2) 08/24/18 14:32 INR 1.0 08/24/18 14:32 APTT 27 SECONDS (21-34) 08/24/18 14:32 - Constitutional Appears: Non-toxic, No Acute Distress, Chronically Ill - Head Exam Head Exam: ATRAUMATIC, NORMAL INSPECTION, NORMOCEPHALIC - Eye Exam Eye Exam: EOMI, Normal appearance Pupil Exam: NORMAL ACCOMODATION - ENT Exam ENT Exam: Mucous Membranes Moist, Normal Exam - Neck Exam Neck Exam: Full ROM, Normal Inspection - Respiratory Exam Respiratory Exam: Clear to Ausculation Bilateral, NORMAL BREATHING PATTERN. absent: Accessory Muscle Use, Rales, Rhonchi, Wheezes, Respiratory Distress, Stridor - Cardiovascular Exam Cardiovascular Exam: REGULAR RHYTHM, +S1, +S2 - GI/Abdominal Exam GI & Abdominal Exam: Soft, Normal Bowel Sounds. absent: Distended, Firm, Guarding, Rigid, Tenderness, Rebound - Extremities Exam Extremities Exam: Full ROM, Normal Capillary Refill, Normal Inspection - Back Exam Back Exam: NORMAL INSPECTION - Neurological Exam Neurological Exam: Alert, Awake, Oriented x3 - Psychiatric Exam Psychiatric exam: Normal Affect, Normal Mood - Skin Skin Exam: Dry, Intact, Normal Color, Warm Assessment and Plan - Assessment and Plan (Free Text) Assessment: 82 year old male with past medical history of HTN, HLD, DM, ESRD on HD TTS, COPD, and chronic anemia presenting to ED for gross hematuria and black watery stools for the past 2 weeks. Plan: Hematuria--resolved Bilateral Nephrolithiasis -no gross hematuria noted, hb continues to be stable -Hb 10.2 (08/31), continue to monitor and transfuse prn -Urology (Dr. Emerson) recs appreciated -enlarged prostate/trabeculated bladder likely cause of hematuria -started on finasteride -EKG: sinus tachycardia, nonspecific T wave abnormality -CT abdomen/pelvis (08/24): B/L nephrolithiasis. Gallbladder distention with cholelithiasis. RLQ pelvic drainage tube catheter in place with small amount of free fluid in pelvic space. Colonic diverticulosis. RLL consolidation with ex tensive bibasilar bronchiectasis. Black watery stools, r/o GI bleed--resolved -no new episodes of overt bloody BM noted -occult stool x 2 negative -fecal leukocyte negative -ova and parasite is negative -c diff toxin negative -stool cx negative -GI (Dr. Bell) recs appreciated -colonoscopy report (08/26): internal hemorrhoids moderate and Grade I. Multiple diverticula in sigmoid and descending colon. New L lobe Infiltrate -Pulmonology (Dr. Post) recs appreciated -ID recs (Dr. Gaitan) appreciated -zosyn d/c'd in light of negative cultures thus far and diarrhea -repeat blood cultures negative x 48 hrs -Atroven 0.5 mg IH q4 -Tessalon perrles 100 mg PO TID -Vancomycin IV TTS after HD ESRD on HD (TTS) -Nephrology (Dr. Dutton) on case -Vascular surgery (Dr. Dejesus) on case -scheduled for OR today (08/31) for AVF -f/u recs -calcitriol 0.25 mcg PO daily -folic acid 1 mg PO daily Hx of COPD Pulmonary Fibrosis -CXR (08/24): Resolving opacity at R base, r/o PNA at L base. Bibasilar atelectasis, possible v small R pleural effusion -duonebs q4 new changed to atrovent q4 new due to agitation from albuterol -solumedrol 40 daily new DM -home meds held -ISS low -accuchecks achs -hypoglycemic protocol Hx HTN -Norvasc 5 mg PO daily Hx of HLD -Crestor 5 mg PO HS [facility] Anemia of chronic disease -2/2 underlying renal failure -continue to monitor, transfuse prn PPx, Diet, Disposition -DVT ppx: scds -GI ppx: protonix 40 IV daily -Diet: NPO for OR, renal diet after procedure -PT on case Dispo: Plan for OR today (08/31) for AVF, f/u Vascular surgery recs and pulmonary clearance Case discussed with Dr. Danitza Reed DO, PGY-1 <Anderson Bosch H - Last Filed: 08/31/18 14:19> Objective - Vital Signs/Intake and Output Vital Signs (last 24 hours): Temp Pulse Resp BP Pulse Ox 97.5 F L 96 H 17 149/69 100 08/31/18 13:30 08/31/18 13:30 08/31/18 13:30 08/31/18 13:30 08/31/18 13:30 Intake and Output: 08/31/18 08/31/18 06:59 18:59 Intake Total 625 Balance 625 - Medications Medications: Current Medications Benzonatate (Tessalon Perles) 100 mg PO TID [facility] Last Admin: 08/31/18 09:47 Dose: Not Given Calcitriol (Rocaltrol) 0.25 mcg PO DAILY [facility] Last Admin: 08/31/18 11:39 Dose: Not Given Dextrose (Dextrose 50% Inj) 0 ml IV STAT PRN; Protocol PRN Reason: Hypoglycemia Protocol Last Admin: 08/26/18 06:59 Dose: 50 ml Dextrose (Glutose 15) 0 gm PO ONCE PRN; Protocol PRN Reason: Hypoglycemia Protocol Epoetin [place] (Procrit) 10,000 unit IV TTS [facility] Last Admin: 08/30/18 12:51 Dose: 10,000 unit Finasteride (Proscar) 5 mg PO DAILY [facility] Last Admin: 08/31/18 11:38 Dose: Not Given Folic Acid (Folic Acid) 1 mg PO DAILY [facility] Last Admin: 08/31/18 11:38 Dose: Not Given Glucagon (Glucagen Diagnostic Kit) 0 mg IM STAT PRN; Protocol PRN Reason: Hypoglycemia Protocol Hydromorphone HCl (Dilaudid) 0.5 mg IVP Q10M PRN PRN Reason: Pain, moderate (4-7) Stop: 08/31/18 14:29 Last Admin: 08/31/18 12:52 Dose: 0.5 mg Dextrose (Dextrose 5% In Water 1000 Ml) 1,000 mls @ 0 mls/hr IV .Q0M PRN; Protocol PRN Reason: Hypoglycemia Protocol Vancomycin HCl 500 mg/ Sodium (Chloride) 100 mls @ 67 mls/hr IVPB TTS [facility]; Protocol Last Admin: 08/30/18 13:25 Dose: 67 mls/hr Sodium Chloride (Sodium Chloride 0.9%) 1,000 mls @ 75 mls/hr IV .[id number] [facility] Insulin Human Regular (Novolin R) 0 unit SC ACHS [facility]; Protocol Last Admin: 08/31/18 11:38 Dose: Not Given Ipratropium [place] (Atrovent) 0.5 mg IH RQ4 [facility] Last Admin: 08/31/18 11:10 Dose: Not Given Methylprednisolone (Solu-Medrol) 40 mg IVP DAILY [facility] Last Admin: 08/31/18 11:39 Dose: Not Given Ondansetron HCl (Zofran Inj) 4 mg IVP ONCE PRN PRN Reason: Nausea/Vomiting Stop: 08/31/18 14:30 Pantoprazole Sodium (Protonix Ec Tab) 40 mg PO DAILY [facility] Last Admin: 08/31/18 11:39 Dose: Not Given Rosuvastatin Calcium (Crestor) 5 mg PO HS [facility] Last Admin: 08/30/18 22:11 Dose: 5 mg - Labs Labs: 08/31/18 07:14 08/31/18 07:14 PT 10.7 SECONDS (9.7-12.2) 08/24/18 14:32 INR 1.0 08/24/18 14:32 APTT 27 SECONDS (21-34) 08/24/18 14:32 Attending/Attestation - Attestation I have personally seen and examined this patient.: Yes I have fully participated in the care of the patient.: Yes I have reviewed all pertinent clinical information, including history, physical exam and plan: Yes Notes (Text): 08/31/18 14:12 Medical attending: Patient was seen and examined by me. Agree with the above note by the resident The patient is pending surgery for AVF today He previously had a cytoscopy done to assess for hematuria and this was stable Hgb is stable at this time Anderson Bosch
[2018-08-31] MEDS: (Novolin R) Insulin Human Regular 100 units/ml vial SC SCH ×4 (07:41→21:23)
[2018-08-31 08:02] LABS: ALB/GLOB RATIO 1.1 (1.0-2.1); ALBUMIN 2.5 g/dL (3.5-5.0); CALCIUM 7.3 mg/dl (8.6-10.4)
[2018-08-31] MEDS ORDERED: Potassium Chloride 20 mEq ER Tab PO ONE (08:21)
[2018-08-31] MEDS ORDERED: HEPARIN-NS 5,000 UNITS/500 ML 5,000 UNIT/500 ML BAG IV ONE (09:11)
[2018-08-31] MEDS ORDERED: ceFAZolin 1 gm in NS 1 GM/100 ML BAG IVPB ONE (09:11)
[2018-08-31 10:02] LABS: EOSINOPHIL 1 % (0-4); LYMPHOCYTE 9 % (20-40); MONOCYTE 6 % (0-10); NEUTROPHIL 84 % (50-75); TOTAL CELLS COUNTED 100
[2018-08-31 10:03] LABS: PLATELET ESTIMATE NORMAL (NORMAL)
[2018-08-31 10:06] LABS: ANISOCYTOSIS SLIGHT
[2018-08-31] MEDS ORDERED: Propofol 10 mg/ml Inj (20 ML) ONE (10:43)
[2018-08-31] MEDS: MethylPREDNISolone 40 mg Vial IVP SCH (11:39)
[2018-08-31] MEDS: Pantoprazole 40 mg EC Tab PO SCH (11:39)
[2018-08-31] MEDS ORDERED: Lidocaine Hydrochloride 5 ML INJ ONE (12:13)
--- NOTE | 2018-08-31 12:25 | PCM.SURG1 ---
Surgeon's Initial Post Op Note - Surgeon's Notes Surgeon: Dr. Dejesus Commercial Singer: [id number] Type of Anesthesia: General LMA Pre-Operative Diagnosis: End Stage Renal Disease Operative Findings: palpable thrill and radial pulse post side to side anastamosis. for details see op note Post-Operative Diagnosis: as above Operation Performed: 1. Left Upper Extremity AV Fistula. 2. Peritoneal Dialysis Catheter Removal Specimen/Specimens Removed: none Estimated Blood Loss: EBL {In ML}: 16 Drains Used: No Drains Post-Op Condition: Good Date of Surgery/Procedure: 08/31/18 Time of Surgery/Procedure: 12:20
[2018-08-31] MEDS: HYDROmorphone 0.5 mg/0.5 ml ISec IVP PRN ×2 (12:40→12:52)
--- NOTE | 2018-08-31 14:26 | CP.PCM.PN ---
Subjective - Date & Time of Evaluation Date of Evaluation: 08/31/18 Time of Evaluation: 14:23 - Subjective Subjective: s/p AV F creation; + thrill PD cath removed stable dialysis 3/5 feels better mild chronic cough Objective - Vital Signs/Intake and Output Vital Signs (last 24 hours): Temp Pulse Resp BP Pulse Ox 97.5 F L 96 H 17 149/69 100 08/31/18 13:30 08/31/18 13:30 08/31/18 13:30 08/31/18 13:30 08/31/18 13:30 Intake and Output: 08/31/18 08/31/18 06:59 18:59 Intake Total 625 Balance 625 - Medications Medications: Current Medications Benzonatate (Tessalon Perles) 100 mg PO TID [facility] Last Admin: 08/31/18 14:23 Dose: 100 mg Calcitriol (Rocaltrol) 0.25 mcg PO DAILY [facility] Last Admin: 08/31/18 11:39 Dose: Not Given Dextrose (Dextrose 50% Inj) 0 ml IV STAT PRN; Protocol PRN Reason: Hypoglycemia Protocol Last Admin: 08/26/18 06:59 Dose: 50 ml Dextrose (Glutose 15) 0 gm PO ONCE PRN; Protocol PRN Reason: Hypoglycemia Protocol Epoetin Justino (Procrit) 10,000 unit IV TTS [facility] Last Admin: 08/30/18 12:51 Dose: 10,000 unit Finasteride (Proscar) 5 mg PO DAILY [facility] Last Admin: 08/31/18 11:38 Dose: Not Given Folic Acid (Folic Acid) 1 mg PO DAILY [facility] Last Admin: 08/31/18 11:38 Dose: Not Given Glucagon (Glucagen Diagnostic Kit) 0 mg IM STAT PRN; Protocol PRN Reason: Hypoglycemia Protocol Hydromorphone HCl (Dilaudid) 0.5 mg IVP Q10M PRN PRN Reason: Pain, moderate (4-7) Stop: 08/31/18 14:29 Last Admin: 08/31/18 12:52 Dose: 0.5 mg Dextrose (Dextrose 5% In Water 1000 Ml) 1,000 mls @ 0 mls/hr IV .Q0M PRN; Protocol PRN Reason: Hypoglycemia Protocol Vancomycin HCl 500 mg/ Sodium (Chloride) 100 mls @ 67 mls/hr IVPB TTS [facility]; Protocol Last Admin: 08/30/18 13:25 Dose: 67 mls/hr Sodium Chloride (Sodium Chloride 0.9%) 1,000 mls @ 75 mls/hr IV .[id number] [facility] Insulin Human Regular (Novolin R) 0 unit SC ACHS [facility]; Protocol Last Admin: 08/31/18 11:38 Dose: Not Given Ipratropium [place] (Atrovent) 0.5 mg IH RQ4 [facility] Last Admin: 08/31/18 11:10 Dose: Not Given Methylprednisolone (Solu-Medrol) 40 mg IVP DAILY [facility] Last Admin: 08/31/18 11:39 Dose: Not Given Ondansetron HCl (Zofran Inj) 4 mg IVP ONCE PRN PRN Reason: Nausea/Vomiting Stop: 08/31/18 14:30 Pantoprazole Sodium (Protonix Ec Tab) 40 mg PO DAILY [facility] Last Admin: 08/31/18 11:39 Dose: Not Given Rosuvastatin Calcium (Crestor) 5 mg PO HS [facility] Last Admin: 08/30/18 22:11 Dose: 5 mg - Labs Labs: 08/31/18 07:14 08/31/18 07:14 PT 10.7 SECONDS (9.7-12.2) 08/24/18 14:32 INR 1.0 08/24/18 14:32 APTT 27 SECONDS (21-34) 08/24/18 14:32 - Constitutional Appears: No Acute Distress, Chronically Ill - Head Exam Head Exam: ATRAUMATIC, NORMAL INSPECTION - Eye Exam Eye Exam: EOMI, Normal appearance - Neck Exam Neck Exam: Normal Inspection. absent: Tenderness - Respiratory Exam Respiratory Exam: Rhonchi, NORMAL BREATHING PATTERN - Cardiovascular Exam Cardiovascular Exam: REGULAR RHYTHM, +S1 - GI/Abdominal Exam GI & Abdominal Exam: Soft. absent: Tenderness - Extremities Exam Extremities Exam: Normal Inspection. absent: Tenderness - Neurological Exam Neurological Exam: Awake, CN II-XII Intact - Skin Skin Exam: Dry, Warm Assessment and Plan (1) Hematuria Status: Acute (2) Anemia Status: Acute (3) ESRD on dialysis Status: Acute (4) Gastrointestinal hemorrhage Status: Acute (5) Bronchiectasis Status: Acute (6) COPD exacerbation Status: Acute - Assessment and Plan (Free Text) Plan: dialysis in AM await AV F maturation
--- NOTE | 2018-08-31 18:22 | CP.PCM.PN ---
Subjective - Date & Time of Evaluation Date of Evaluation: 08/31/18 Time of Evaluation: 18:22 - Subjective Subjective: Pulmonary follow up, Covering Dr Post The Patient was seen and examined at the bedside, Medical records reviewed, and management issues were discussed and formulated with the house staff. Events reviewed Patient is 82 years old former smoker male with past medical history of hypertension, end-stage renal disease on hemodialysis, history of pneumonia and chronic obstructive pulmonary disease Who was initially admitted with gross hematuria and black tarry stool for 2 weeks Pulmonary consult done was called for shortness of shortness of breath cough and congestion, with radiographic evidence of pulmonary fibrosis and lung infiltrate Patient is feeling well today, cough and shortness of breath markedly improved His comfortable in bed, in no acute distress Afebrile Objective - Vital Signs/Intake and Output Vital Signs (last 24 hours): Temp Pulse Resp BP Pulse Ox 98.1 F 84 20 140/70 96 08/31/18 15:34 08/31/18 15:34 08/31/18 15:34 08/31/18 15:34 08/31/18 15:34 Intake and Output: 08/31/18 08/31/18 06:59 18:59 Intake Total 625 Balance 625 - Medications Medications: Current Medications Benzonatate (Tessalon Perles) 100 mg PO TID [facility] Last Admin: 08/31/18 18:04 Dose: 100 mg Calcitriol (Rocaltrol) 0.25 mcg PO DAILY [facility] Last Admin: 08/31/18 11:39 Dose: Not Given Dextrose (Dextrose 50% Inj) 0 ml IV STAT PRN; Protocol PRN Reason: Hypoglycemia Protocol Last Admin: 08/26/18 06:59 Dose: 50 ml Dextrose (Glutose 15) 0 gm PO ONCE PRN; Protocol PRN Reason: Hypoglycemia Protocol Epoetin Justino (Procrit) 10,000 unit IV TTS [facility] Last Admin: 08/30/18 12:51 Dose: 10,000 unit Finasteride (Proscar) 5 mg PO DAILY [facility] Last Admin: 08/31/18 11:38 Dose: Not Given Folic Acid (Folic Acid) 1 mg PO DAILY [facility] Last Admin: 08/31/18 11:38 Dose: Not Given Glucagon (Glucagen Diagnostic Kit) 0 mg IM STAT PRN; Protocol PRN Reason: Hypoglycemia Protocol Dextrose (Dextrose 5% In Water 1000 Ml) 1,000 mls @ 0 mls/hr IV .Q0M PRN; Protocol PRN Reason: Hypoglycemia Protocol Vancomycin HCl 500 mg/ Sodium (Chloride) 100 mls @ 67 mls/hr IVPB TTS [facility]; Protocol Last Admin: 08/30/18 13:25 Dose: 67 mls/hr Sodium Chloride (Sodium Chloride 0.9%) 1,000 mls @ 75 mls/hr IV .[id number] [facility] Insulin Human Regular (Novolin R) 0 unit SC ACHS [facility]; Protocol Last Admin: 08/31/18 17:22 Dose: Not Given Ipratropium [place] (Atrovent) 0.5 mg IH RQ4 [facility] Last Admin: 08/31/18 11:10 Dose: Not Given Methylprednisolone (Solu-Medrol) 40 mg IVP DAILY [facility] Last Admin: 08/31/18 11:39 Dose: Not Given Pantoprazole Sodium (Protonix Ec Tab) 40 mg PO DAILY [facility] Last Admin: 08/31/18 11:39 Dose: Not Given Rosuvastatin Calcium (Crestor) 5 mg PO HS [facility] Last Admin: 08/30/18 22:11 Dose: 5 mg - Labs Labs: 08/31/18 07:14 08/31/18 07:14 PT 10.7 SECONDS (9.7-12.2) 08/24/18 14:32 INR 1.0 08/24/18 14:32 APTT 27 SECONDS (21-34) 08/24/18 14:32 - Constitutional Appears: Well, Non-toxic - Head Exam Head Exam: ATRAUMATIC, NORMAL INSPECTION - Eye Exam Eye Exam: EOMI, Normal appearance - ENT Exam ENT Exam: Mucous Membranes Moist - Neck Exam Neck Exam: Full ROM - Respiratory Exam Respiratory Exam: Decreased Breath Sounds, Rhonchi. absent: Accessory Muscle Use, Chest Wall Tenderness, Rales, Wheezes - Cardiovascular Exam Cardiovascular Exam: REGULAR RHYTHM, +S1, +S2. absent: Murmur - GI/Abdominal Exam GI & Abdominal Exam: Soft, Normal Bowel Sounds. absent: Tenderness Assessment and Plan (1) Pulmonary fibrosis Status: Acute (2) Bronchiectasis Status: Acute (3) COPD (chronic obstructive pulmonary disease) Status: Acute (4) Pneumonia Status: Acute (5) ESRD on dialysis Status: Acute - Assessment and Plan (Free Text) Assessment: Continue present medication Continue antibiotics for left lower lobe pneumonia Follow-up culture and sensitivity. Follow-up chest x-ray Methylprednisolone (Solu-Medrol) 40 mg IVP DAILY Discontinued Brio Ellipta. Nebulizer treatment. Antitussive with Tessalon Perles 100 mg PO TID
--- NOTE | 2018-08-31 21:01 | CP.PCM.PN ---
Subjective - Date & Time of Evaluation Date of Evaluation: 08/31/18 Time of Evaluation: 15:00 - Subjective Subjective: dictated Objective - Vital Signs/Intake and Output Vital Signs (last 24 hours): Temp Pulse Resp BP Pulse Ox 98.1 F 84 20 140/70 96 08/31/18 15:34 08/31/18 15:34 08/31/18 15:34 08/31/18 15:34 08/31/18 15:34 Intake and Output: 08/31/18 09/01/18 18:59 06:59 Intake Total 625 Balance 625 - Medications Medications: Current Medications Benzonatate (Tessalon Perles) 100 mg PO TID [facility] Last Admin: 08/31/18 18:04 Dose: 100 mg Calcitriol (Rocaltrol) 0.25 mcg PO DAILY [facility] Last Admin: 08/31/18 11:39 Dose: Not Given Dextrose (Dextrose 50% Inj) 0 ml IV STAT PRN; Protocol PRN Reason: Hypoglycemia Protocol Last Admin: 08/26/18 06:59 Dose: 50 ml Dextrose (Glutose 15) 0 gm PO ONCE PRN; Protocol PRN Reason: Hypoglycemia Protocol Epoetin Justino (Procrit) 10,000 unit IV TTS [facility] Last Admin: 08/30/18 12:51 Dose: 10,000 unit Finasteride (Proscar) 5 mg PO DAILY [facility] Last Admin: 08/31/18 11:38 Dose: Not Given Folic Acid (Folic Acid) 1 mg PO DAILY [facility] Last Admin: 08/31/18 11:38 Dose: Not Given Glucagon (Glucagen Diagnostic Kit) 0 mg IM STAT PRN; Protocol PRN Reason: Hypoglycemia Protocol Dextrose (Dextrose 5% In Water 1000 Ml) 1,000 mls @ 0 mls/hr IV .Q0M PRN; Protocol PRN Reason: Hypoglycemia Protocol Vancomycin HCl 500 mg/ Sodium (Chloride) 100 mls @ 67 mls/hr IVPB TTS [facility]; Protocol Last Admin: 08/30/18 13:25 Dose: 67 mls/hr Sodium Chloride (Sodium Chloride 0.9%) 1,000 mls @ 75 mls/hr IV .[id number] [facility] Insulin Human Regular (Novolin R) 0 unit SC ACHS [facility]; Protocol Last Admin: 08/31/18 17:22 Dose: Not Given Ipratropium [place] (Atrovent) 0.5 mg IH RQ4 [facility] Last Admin: 08/31/18 19:27 Dose: 0.5 mg Methylprednisolone (Solu-Medrol) 40 mg IVP DAILY [facility] Last Admin: 08/31/18 11:39 Dose: Not Given Pantoprazole Sodium (Protonix Ec Tab) 40 mg PO DAILY [facility] Last Admin: 08/31/18 11:39 Dose: Not Given Rosuvastatin Calcium (Crestor) 5 mg PO HS [facility] Last Admin: 08/30/18 22:11 Dose: 5 mg - Labs Labs: 08/31/18 07:14 08/31/18 07:14 PT 10.7 SECONDS (9.7-12.2) 08/24/18 14:32 INR 1.0 08/24/18 14:32 APTT 27 SECONDS (21-34) 08/24/18 14:32
[2018-08-31] MEDS ORDERED: guaiFENesin 100 mg/5 ml Syrup UD PO STA (21:50)
--- NOTE | 2018-08-31 22:04 | OP ---
PROCEDURE DATE: 08/31/2018 PREOPERATIVE DIAGNOSIS: Renal failure. POSTOPERATIVE DIAGNOSIS: Renal failure. PROCEDURES: 1. Brachial fistula of left elbow. 2. Removal of Tenckhoff peritoneal dialysis catheter. SURGEON: Artis Dejesus Jr., MD WOODYARD OPERATOR: Darryl Chapman DO ANESTHESIOLOGIST: Kenji Garcia MD TYPE OF ANESTHESIA: General. INDICATIONS: The patient is an elderly man with renal insufficiency, previously had peritoneal dialysis, now dialyzing by means of a catheter. OPERATIVE FINDINGS: The patient did not have a good cephalic vein in the arm due to his fistula. This was confirmed both on vein mapping done preoperatively as well as our intraoperative vein mapping. In addition, his brachial vein was of decent size and then soon after its origin about 3 to 4 cm above this, this led to a separate vein, probably not the basilic vein but a separate vein away from the brachial vein. So, I think that in the future, this can be mobilized as needed. DESCRIPTION OF PROCEDURE: The patient was given general anesthesia, intravenous antibiotics. The fistula was created first in an end-to-side fashion using loop magnification and heparin anticoagulation at the elbow. The findings on the ultrasound and vein mapping were mentioned above. After completion of the anastomosis and obtaining hemostasis, we then closed the wound with Monocryl and nylon sutures. Blood loss for the procedure total was about 12 mL. We then turned out attention to the abdomen. We easily removed the proximal cuff and the distal part of the catheter came out with the cuff remained in the rectus sheath. We then closed these wounds with Steri-Strips. Blood loss for total procedure was 12 mL. Operation carried out was AV fistula of left arm and removal of Tenckhoff catheter. Artis Dejesus Jr., MD cc: Greg Dutton MD
[2018-09-01] MEDS: Ipratropium 0.02% Inhal Soln (0.5 mg/2.5 ml) UD IH SCH ×6 (00:45→19:17)
[2018-09-01] MEDS: Sodium Chloride 0.9% 1,000 ML IV SCH ×2 (01:50→06:00)
--- NOTE | 2018-09-01 02:02 | PN ---
DATE: 08/31/2018 SUBJECTIVE: The patient was seen today. He went to the OR before and he was afebrile. He had the peritoneal dialysis catheter removed and also he had a _av fistula____ and has dressing in his left arm where they have put a fistula. He remains afebrile. He denied any diarrhea today. He says they took out the catheter and he had something done in his upper arm. He says he was still coughing, but less. Denied any diarrhea. PHYSICAL EXAMINATION: VITAL SIGNS: T-max is 98.1, pulse 84, blood pressure 140/70, respirations are 20. GENERAL: A thin-built male. HEAD: Atraumatic, normocephalic. NECK: Supple. LUNGS: Clear. Occasional rhonchi. HEART: S1, S2 present. ABDOMEN: Soft, nontender. He is postop. EXTREMITIES: No edema. LABORATORY DATA: Labs are noted. White count is 9.5, hemoglobin 10.2, hematocrit 31.2, platelet count is 243. Micro peguero, the cultures, he had only one set which grew coagulase-negative staph when he came in and he came in for bleeding, hematuria versus melena. He did have several cultures done which are all negative. MEDICATIONS: He has received vancomycin on admission. ASSESSMENT AND PLAN: The peritoneal dialysis catheter has been removed. I would think it would be peguero to change the right dialysis catheter in view of this one Staphylococcus epidermidis, so he has no source left for the Staphylococcus epidermidis but at the same time, it could have been. So, we will discuss with the Renal attending as well as the vascular surgeon if that could be done before he is discharged and if agreeable with both of them, as vascular surgeon has to do it. Meanwhile, I will continue vancomycin on each dialysis which is on Tuesdays, , and Saturdays. I will follow and would give at least two weeks of vancomycin from the last positive culture. He did get a new fistula placed on admit, see the OR note. The OR note says he has left upper extremity arteriovenous fistula and peritoneal dialysis catheter removal. He is diabetic. We will follow. Melissa Gaitan MD MTDHolly
--- NOTE | 2018-09-01 07:14 | CP.PCM.PN ---
<Leroy Reed - Last Filed: 09/01/18 11:10> Subjective - Date & Time of Evaluation Date of Evaluation: 09/01/18 Time of Evaluation: 07:14 - Subjective Subjective: PGY-1 Medicine Progress Note for Dr. Bosch Patient seen and examined at bedside s/p L AVF creation and PD catheter removal. No acute overnight events reported, no acute somatic complaints. Tolerating diet well. No chest pain, palpitations, abdominal pain, n/v/d, fevers/chills. Scheduled for HD session today. Objective - Vital Signs/Intake and Output Vital Signs (last 24 hours): Temp Pulse Resp BP Pulse Ox 98.2 F 89 20 161/78 H 98 09/01/18 04:35 09/01/18 04:35 09/01/18 04:35 09/01/18 04:35 09/01/18 04:35 - Medications Medications: Current Medications Benzonatate (Tessalon Perles) 100 mg PO TID [facility] Last Admin: 08/31/18 18:04 Dose: 100 mg Calcitriol (Rocaltrol) 0.25 mcg PO DAILY [facility] Last Admin: 08/31/18 11:39 Dose: Not Given Dextrose (Dextrose 50% Inj) 0 ml IV STAT PRN; Protocol PRN Reason: Hypoglycemia Protocol Last Admin: 08/26/18 06:59 Dose: 50 ml Dextrose (Glutose 15) 0 gm PO ONCE PRN; Protocol PRN Reason: Hypoglycemia Protocol Epoetin Justino (Procrit) 10,000 unit IV TTS [facility] Last Admin: 08/30/18 12:51 Dose: 10,000 unit Finasteride (Proscar) 5 mg PO DAILY [facility] Last Admin: 08/31/18 11:38 Dose: Not Given Folic Acid (Folic Acid) 1 mg PO DAILY [facility] Last Admin: 08/31/18 11:38 Dose: Not Given Glucagon (Glucagen Diagnostic Kit) 0 mg IM STAT PRN; Protocol PRN Reason: Hypoglycemia Protocol Dextrose (Dextrose 5% In Water 1000 Ml) 1,000 mls @ 0 mls/hr IV .Q0M PRN; Protocol PRN Reason: Hypoglycemia Protocol Vancomycin HCl 500 mg/ Sodium (Chloride) 100 mls @ 67 mls/hr IVPB TTS [facility]; Protocol Last Admin: 08/30/18 13:25 Dose: 67 mls/hr Sodium Chloride (Sodium Chloride 0.9%) 1,000 mls @ 75 mls/hr IV .[id number] [facility] Last Admin: 09/01/18 06:00 Dose: 75 mls/hr Insulin Human Regular (Novolin R) 0 unit SC ACHS [facility]; Protocol Last Admin: 08/31/18 21:23 Dose: Not Given Ipratropium [place] (Atrovent) 0.5 mg IH RQ4 [facility] Last Admin: 09/01/18 04:13 Dose: Not Given Methylprednisolone (Solu-Medrol) 40 mg IVP DAILY [facility] Last Admin: 08/31/18 11:39 Dose: Not Given Pantoprazole Sodium (Protonix Ec Tab) 40 mg PO DAILY [facility] Last Admin: 08/31/18 11:39 Dose: Not Given Rosuvastatin Calcium (Crestor) 5 mg PO HS [facility] Last Admin: 08/31/18 22:21 Dose: 5 mg - Labs Labs: 08/31/18 07:14 08/31/18 07:14 PT 10.7 SECONDS (9.7-12.2) 08/24/18 14:32 INR 1.0 08/24/18 14:32 APTT 27 SECONDS (21-34) 08/24/18 14:32 - Constitutional Appears: Non-toxic, No Acute Distress - Head Exam Head Exam: ATRAUMATIC, NORMAL INSPECTION, NORMOCEPHALIC - Eye Exam Eye Exam: EOMI, Normal appearance Pupil Exam: NORMAL ACCOMODATION - ENT Exam ENT Exam: Mucous Membranes Moist, Normal Exam - Neck Exam Neck Exam: Full ROM, Normal Inspection. absent: Tenderness - Respiratory Exam Respiratory Exam: Decreased Breath Sounds. absent: Accessory Muscle Use, Wheezes, Respiratory Distress, Stridor - Cardiovascular Exam Cardiovascular Exam: REGULAR RHYTHM, +S1, +S2 - GI/Abdominal Exam GI & Abdominal Exam: Soft, Tenderness (mild TTP around incision site), Normal Bowel Sounds. absent: Distended, Firm, Guarding, Rigid, Rebound Additional comments: incisions c/d/i - Extremities Exam Extremities Exam: Full ROM, Normal Capillary Refill, Normal Inspection. absent: Calf Tenderness, Pedal Edema Additional comments: palpable thrill palpable L radial artery dressing c/d/i - Neurological Exam Neurological Exam: Alert, Awake, Oriented x3 - Skin Skin Exam: Dry, Intact, Normal Color, Warm Assessment and Plan - Assessment and Plan (Free Text) Assessment: 82 year old male with past medical history of HTN, HLD, DM, ESRD on HD TTS, COPD, and chronic anemia presenting to ED for gross hematuria and black wa shey stools for the past 2 weeks. Plan: Hematuria--resolved Bilateral Nephrolithiasis -no gross hematuria noted, hb continues to be stable -Hb 10.2 (08/31), continue to monitor and transfuse prn -Urology (Dr. Emerson) recs appreciated -enlarged prostate/trabeculated bladder likely cause of hematuria -started on finasteride -EKG: sinus tachycardia, nonspecific T wave abnormality -CT abdomen/pelvis (08/24): B/L nephrolithiasis. Gallbladder distention with ch olelithiasis. RLQ pelvic drainage tube catheter in place with small amount of free fluid in pelvic space. Colonic diverticulosis. RLL consolidation with extensive bibasilar bronchiectasis. Black watery stools, r/o GI bleed--resolved -no new episodes of overt bloody BM noted -occult stool x 2 negative -fecal leukocyte negative -ova and parasite is negative -c diff toxin negative -stool cx negative -GI (Dr. Bell) recs appreciated -colonoscopy report (08/26): internal hemorrhoids moderate and Grade I. Multiple diverticula in sigmoid and descending colon. New L lobe Infiltrate -Pulmonology (Dr. Post) recs appreciated -ID recs (Dr. Gaitan) appreciated -recommend continuing vanco TTS x 2 weeks total from last positive blood culture -last positive blood cx: 08/25 (s. epidermidis) -repeat blood cultures (08/27) negative -Atroven 0.5 mg IH q4 -Tessalon perrles 100 mg PO TID -Vancomycin IV TTS after HD ESRD on HD (TTS) -Nephrology (Dr. Dutton) on case -IVF d/c'd -EPO added -Vascular surgery (Dr. Dejesus) on case -s/p L AVF creation and PD catheter removal -no further intervention -calcitriol 0.25 mcg PO daily -folic acid 1 mg PO daily Hx of COPD Pulmonary Fibrosis -CXR (08/24): Resolving opacity at R base, r/o PNA at L base. Bibasilar atelectasis, possible v small R pleural effusion -duonebs q4 new changed to atrovent q4 new due to agitation from albuterol -solumedrol 40 daily new DM -home meds held -ISS low -accuchecks achs -hypoglycemic protocol Hx HTN -Norvasc 5 mg PO daily Hx of HLD -Crestor 5 mg PO HS NEW Anemia of chronic disease -2/2 underlying renal failure -continue to monitor, transfuse prn PPx, Diet, Disposition -DVT ppx: scds -GI ppx: protonix 40 IV daily -Diet: NPO for OR, renal diet after procedure -PT on case Dispo: HD session scheduled today. F/U pulm/ID clearance. Case discussed with Dr. Danitza Reed DO, PGY-1 <Anderson Bosch H - Last Filed: 09/01/18 12:56> Objective - Vital Signs/Intake and Output Vital Signs (last 24 hours): Temp Pulse Resp BP Pulse Ox 97.8 F 83 20 120/67 98 09/01/18 12:25 09/01/18 12:25 09/01/18 12:25 09/01/18 12:25 09/01/18 09:25 - Medications Medications: Current Medications Benzonatate (Tessalon Perles) 100 mg PO TID [facility] Last Admin: 09/01/18 09:53 Dose: Not Given Calcitriol (Rocaltrol) 0.25 mcg PO DAILY [facility] Last Admin: 09/01/18 09:53 Dose: Not Given Dextrose (Dextrose 50% Inj) 0 ml IV STAT PRN; Protocol PRN Reason: Hypoglycemia Protocol Last Admin: 08/26/18 06:59 Dose: 50 ml Dextrose (Glutose 15) 0 gm PO ONCE PRN; Protocol PRN Reason: Hypoglycemia Protocol Epoetin Justino (Procrit) 10,000 unit IV TTS [facility] Last Admin: 09/01/18 09:52 Dose: 10,000 unit Finasteride (Proscar) 5 mg PO DAILY [facility] Last Admin: 09/01/18 09:52 Dose: Not Given Folic Acid (Folic Acid) 1 mg PO DAILY [facility] Last Admin: 09/01/18 09:52 Dose: Not Given Glucagon (Glucagen Diagnostic Kit) 0 mg IM STAT PRN; Protocol PRN Reason: Hypoglycemia Protocol Dextrose (Dextrose 5% In Water 1000 Ml) 1,000 mls @ 0 mls/hr IV .Q0M PRN; Protocol PRN Reason: Hypoglycemia Protocol Vancomycin HCl 500 mg/ Sodium (Chloride) 100 mls @ 67 mls/hr IVPB TTS [facility]; Protocol Last Admin: 08/30/18 13:25 Dose: 67 mls/hr Insulin Human Regular (Novolin R) 0 unit SC ACHS [facility]; Protocol Last Admin: 09/01/18 12:07 Dose: Not Given Ipratropium [place] (Atrovent) 0.5 mg IH RQ4 [facility] Last Admin: 09/01/18 11:21 Dose: Not Given Methylprednisolone (Solu-Medrol) 40 mg IVP DAILY [facility] Last Admin: 09/01/18 09:53 Dose: Not Given Pantoprazole Sodium (Protonix Ec Tab) 40 mg PO DAILY [facility] Last Admin: 09/01/18 09:52 Dose: Not Given Rosuvastatin Calcium (Crestor) 5 mg PO HS [facility] Last Admin: 08/31/18 22:21 Dose: 5 mg - Labs Labs: 09/01/18 07:07 09/01/18 07:07 PT 10.7 SECONDS (9.7-12.2) 08/24/18 14:32 INR 1.0 08/24/18 14:32 APTT 27 SECONDS (21-34) 08/24/18 14:32 Attending/Attestation - Attestation I have personally seen and examined this patient.: Yes I have fully participated in the care of the patient.: Yes I have reviewed all pertinent clinical information, including history, physical exam and plan: Yes Notes (Text): 09/01/18 12:54 Medical attending: Patient was seen and examined by me with the medical anthropologist The patient was having HD today He just had AVF placement yesterday No acute events at this time Reviewed lab work, the Hgb is 9.4 today Anderson Bosch 09/01/18 12:56
[2018-09-01 07:28] LABS: BASO % 0.3 % (0.0-2.0); EOS # 0.2 K/uL (0.0-0.7); EOS % 1.5 % (0.0-4.0); HEMOGLOBIN 9.4 g/dL (12.0-18.0); LYMPH # 0.7 K/uL (1.0-4.3); LYMPH % 6.5 % (20.0-40.0); MEAN CELL VOLUME 95.5 fL (80.0-94.0); MEAN CORPUSCULAR HEMOGLOBIN 31.1 pg (27.0-31.0); MEAN CORPUSCULAR HGB CONC 32.6 g/dL (33.0-37.0); MEAN PLATELET VOLUME 8.1 fL (7.2-11.7); MONO # 0.6 K/uL (0.0-0.8); MONO % 5.9 % (0.0-10.0); NEUT # 9.4 K/uL (1.8-7.0); NEUT % 85.8 % (50.0-75.0); NRBC % 0.1 % (0.0-2.0); PLATELET COUNT 217 K/uL (130-400); RBC 3.03 Mil/uL (4.40-5.90); RED CELL DISTRIBUTION WIDTH 19.9 % (11.5-14.5)
[2018-09-01] MEDS: (Novolin R) Insulin Human Regular 100 units/ml vial SC SCH ×4 (07:33→21:35)
[2018-09-01 08:11] LABS: ALB/GLOB RATIO 1.1 (1.0-2.1); ALBUMIN 2.4 g/dL (3.5-5.0); CALCIUM 7.7 mg/dl (8.6-10.4)
--- NOTE | 2018-09-01 08:43 | CP.PCM.PN ---
Subjective - Date & Time of Evaluation Date of Evaluation: 09/01/18 Time of Evaluation: 07:05 - Subjective Subjective: Vascular Surgery Dr. Dejesus Pt seen and examined @bedside. Pt underwent L AVF creation and PD catheter removal yesterday. Pt tolerated procedure well w/ no complications. No acute events overnight. Pt has no complaints. denies F/C, CP, SOB, N/V, abd pain. tolerating diet. Objective - Vital Signs/Intake and Output Vital Signs (last 24 hours): Temp Pulse Resp BP Pulse Ox 98.8 F 94 H 20 166/72 H 97 09/01/18 07:25 09/01/18 07:25 09/01/18 07:25 09/01/18 07:25 09/01/18 07:25 - Medications Medications: Current Medications Benzonatate (Tessalon Perles) 100 mg PO TID [facility] Last Admin: 08/31/18 18:04 Dose: 100 mg Calcitriol (Rocaltrol) 0.25 mcg PO DAILY [facility] Last Admin: 08/31/18 11:39 Dose: Not Given Dextrose (Dextrose 50% Inj) 0 ml IV STAT PRN; Protocol PRN Reason: Hypoglycemia Protocol Last Admin: 08/26/18 06:59 Dose: 50 ml Dextrose (Glutose 15) 0 gm PO ONCE PRN; Protocol PRN Reason: Hypoglycemia Protocol Epoetin Justino (Procrit) 10,000 unit IV TTS [facility] Last Admin: 08/30/18 12:51 Dose: 10,000 unit Finasteride (Proscar) 5 mg PO DAILY [facility] Last Admin: 08/31/18 11:38 Dose: Not Given Folic Acid (Folic Acid) 1 mg PO DAILY [facility] Last Admin: 08/31/18 11:38 Dose: Not Given Glucagon (Glucagen Diagnostic Kit) 0 mg IM STAT PRN; Protocol PRN Reason: Hypoglycemia Protocol Dextrose (Dextrose 5% In Water 1000 Ml) 1,000 mls @ 0 mls/hr IV .Q0M PRN; Protocol PRN Reason: Hypoglycemia Protocol Vancomycin HCl 500 mg/ Sodium (Chloride) 100 mls @ 67 mls/hr IVPB TTS [facility]; Protocol Last Admin: 08/30/18 13:25 Dose: 67 mls/hr Sodium Chloride (Sodium Chloride 0.9%) 1,000 mls @ 75 mls/hr IV .[id number] [facility] Last Admin: 09/01/18 06:00 Dose: 75 mls/hr Insulin Human Regular (Novolin R) 0 unit SC ACHS [facility]; Protocol Last Admin: 09/01/18 07:33 Dose: Not Given Ipratropium [place] (Atrovent) 0.5 mg IH RQ4 [facility] Last Admin: 09/01/18 07:47 Dose: 0.5 mg Methylprednisolone (Solu-Medrol) 40 mg IVP DAILY [facility] Last Admin: 08/31/18 11:39 Dose: Not Given Pantoprazole Sodium (Protonix Ec Tab) 40 mg PO DAILY [facility] Last Admin: 08/31/18 11:39 Dose: Not Given Rosuvastatin Calcium (Crestor) 5 mg PO HS [facility] Last Admin: 08/31/18 22:21 Dose: 5 mg - Labs Labs: 09/01/18 07:07 09/01/18 07:07 PT 10.7 SECONDS (9.7-12.2) 08/24/18 14:32 INR 1.0 08/24/18 14:32 APTT 27 SECONDS (21-34) 08/24/18 14:32 - Constitutional Appears: Non-toxic, No Acute Distress - Head Exam Head Exam: NORMAL INSPECTION - Eye Exam Eye Exam: Normal appearance - ENT Exam ENT Exam: Mucous Membranes Moist - Respiratory Exam Respiratory Exam: NORMAL BREATHING PATTERN. absent: Accessory Muscle Use, Respiratory Distress - Cardiovascular Exam Cardiovascular Exam: REGULAR RHYTHM. absent: Bradycardia, Tachycardia - GI/Abdominal Exam GI & Abdominal Exam: Soft, Tenderness (appropriate TTP). absent: Distended Additional comments: incisions c/d/i - Extremities Exam Extremities Exam: Normal Inspection Additional comments: palpable thrill palpable L radial artery dressing c/d/i - Neurological Exam Neurological Exam: Alert, Awake, Oriented x3 - Psychiatric Exam Psychiatric exam: Normal Affect, Normal Mood - Skin Skin Exam: Dry, Intact, Warm Assessment and Plan - Assessment and Plan (Free Text) Assessment: 83 y/o M w/ ESRD POD#1 s/p AVF creation and PD catheter removal Plan: - cont HD via permacath as per Nephrology - vascular checks Qshift - cont medical management - No further surgical intervention at this time - please reconsult if needed Pt discussed w/ Dr. Oleg Ellis DO PGY3
--- NOTE | 2018-09-01 09:16 | CP.PCM.PN ---
Subjective - Date & Time of Evaluation Date of Evaluation: 09/01/18 Time of Evaluation: 09:14 - Subjective Subjective: Seen at dialysis feels better BP sl elevated s/p AV F creation- has bruit no new complaints Objective - Vital Signs/Intake and Output Vital Signs (last 24 hours): Temp Pulse Resp BP Pulse Ox 98.8 F 94 H 20 166/72 H 97 09/01/18 07:25 09/01/18 07:25 09/01/18 07:25 09/01/18 07:25 09/01/18 07:25 - Medications Medications: Current Medications Benzonatate (Tessalon Perles) 100 mg PO TID [facility] Last Admin: 08/31/18 18:04 Dose: 100 mg Calcitriol (Rocaltrol) 0.25 mcg PO DAILY [facility] Last Admin: 08/31/18 11:39 Dose: Not Given Dextrose (Dextrose 50% Inj) 0 ml IV STAT PRN; Protocol PRN Reason: Hypoglycemia Protocol Last Admin: 08/26/18 06:59 Dose: 50 ml Dextrose (Glutose 15) 0 gm PO ONCE PRN; Protocol PRN Reason: Hypoglycemia Protocol Epoetin Justino (Procrit) 10,000 unit IV TTS [facility] Last Admin: 08/30/18 12:51 Dose: 10,000 unit Finasteride (Proscar) 5 mg PO DAILY [facility] Last Admin: 08/31/18 11:38 Dose: Not Given Folic Acid (Folic Acid) 1 mg PO DAILY [facility] Last Admin: 08/31/18 11:38 Dose: Not Given Glucagon (Glucagen Diagnostic Kit) 0 mg IM STAT PRN; Protocol PRN Reason: Hypoglycemia Protocol Dextrose (Dextrose 5% In Water 1000 Ml) 1,000 mls @ 0 mls/hr IV .Q0M PRN; Protocol PRN Reason: Hypoglycemia Protocol Vancomycin HCl 500 mg/ Sodium (Chloride) 100 mls @ 67 mls/hr IVPB TTS [facility]; Pr otocol Last Admin: 08/30/18 13:25 Dose: 67 mls/hr Sodium Chloride (Sodium Chloride 0.9%) 1,000 mls @ 75 mls/hr IV .[id number] [facility] Last Admin: 09/01/18 06:00 Dose: 75 mls/hr Insulin Human Regular (Novolin R) 0 unit SC ACHS [facility]; Protocol Last Admin: 09/01/18 07:33 Dose: Not Given Ipratropium [place] (Atrovent) 0.5 mg IH RQ4 [facility] Last Admin: 09/01/18 07:47 Dose: 0.5 mg Methylprednisolone (Solu-Medrol) 40 mg IVP DAILY [facility] Last Admin: 08/31/18 11:39 Dose: Not Given Pantoprazole Sodium (Protonix Ec Tab) 40 mg PO DAILY [facility] Last Admin: 08/31/18 11:39 Dose: Not Given Rosuvastatin Calcium (Crestor) 5 mg PO HS [facility] Last Admin: 08/31/18 22:21 Dose: 5 mg - Labs Labs: 09/01/18 07:07 09/01/18 07:07 PT 10.7 SECONDS (9.7-12.2) 08/24/18 14:32 INR 1.0 08/24/18 14:32 APTT 27 SECONDS (21-34) 08/24/18 14:32 - Constitutional Appears: No Acute Distress, Chronically Ill - Head Exam Head Exam: ATRAUMATIC, NORMAL INSPECTION - Eye Exam Eye Exam: EOMI, Normal appearance - Neck Exam Neck Exam: Normal Inspection. absent: Tenderness - Respiratory Exam Respiratory Exam: Rhonchi, NORMAL BREATHING PATTERN - Cardiovascular Exam Cardiovascular Exam: REGULAR RHYTHM, +S1 - GI/Abdominal Exam GI & Abdominal Exam: Soft. absent: Tenderness - Extremities Exam Extremities Exam: Normal Inspection. absent: Tenderness - Neurological Exam Neurological Exam: Awake, CN II-XII Intact - Skin Skin Exam: Dry, Warm Assessment and Plan (1) Hematuria Status: Acute (2) Anemia Status: Acute (3) ESRD on dialysis Status: Acute (4) Gastrointestinal hemorrhage Status: Acute (5) Bronchiectasis Status: Acute (6) COPD exacerbation Status: Acute - Assessment and Plan (Free Text) Plan: stop IV fluids add EPO dialysis TTS
[2018-09-01 09:37] LABS: EOSINOPHIL 2 % (0-4); LYMPHOCYTE 8 % (20-40); MONOCYTE 3 % (0-10); NEUTROPHIL 87 % (50-75); TOTAL CELLS COUNTED 100
[2018-09-01 09:38] LABS: ANISOCYTOSIS SLIGHT; HYPOCHROMIC SLIGHT; PLATELET ESTIMATE NORMAL (NORMAL); POLYCHROMIC SLIGHT
[2018-09-01] MEDS: Epoetin Alfa 10,000 unit/ml Dialysis IV SCH (09:52)
[2018-09-01] MEDS: Pantoprazole 40 mg EC Tab PO SCH (09:52)
[2018-09-01] MEDS: MethylPREDNISolone 40 mg Vial IVP SCH (09:53)
--- NOTE | 2018-09-01 15:45 | CP.PCM.PN ---
Subjective - Date & Time of Evaluation Date of Evaluation: 09/01/18 Time of Evaluation: 15:00 - Subjective Subjective: dictated Objective - Vital Signs/Intake and Output Vital Signs (last 24 hours): Temp Pulse Resp BP Pulse Ox 97.8 F 83 20 120/67 98 09/01/18 12:25 09/01/18 12:25 09/01/18 12:25 09/01/18 12:25 09/01/18 09:25 Intake and Output: 09/01/18 09/01/18 06:59 18:59 Intake Total 225 Balance 225 - Medications Medications: Current Medications Benzonatate (Tessalon Perles) 100 mg PO TID [facility] Last Admin: 09/01/18 13:31 Dose: 100 mg Calcitriol (Rocaltrol) 0.25 mcg PO DAILY [facility] Last Admin: 09/01/18 09:53 Dose: Not Given Dextrose (Dextrose 50% Inj) 0 ml IV STAT PRN; Protocol PRN Reason: Hypoglycemia Protocol Last Admin: 08/26/18 06:59 Dose: 50 ml Dextrose (Glutose 15) 0 gm PO ONCE PRN; Protocol PRN Reason: Hypoglycemia Protocol Epoetin Justino (Procrit) 10,000 unit IV TTS [facility] Last Admin: 09/01/18 09:52 Dose: 10,000 unit Finasteride (Proscar) 5 mg PO DAILY [facility] Last Admin: 09/01/18 09:52 Dose: Not Given Folic Acid (Folic Acid) 1 mg PO DAILY [facility] Last Admin: 09/01/18 09:52 Dose: Not Given Glucagon (Glucagen Diagnostic Kit) 0 mg IM STAT PRN; Protocol PRN Reason: Hypoglycemia Protocol Dextrose (Dextrose 5% In Water 1000 Ml) 1,000 mls @ 0 mls/hr IV .Q0M PRN; Protocol PRN Reason: Hypoglycemia Protocol Vancomycin HCl 500 mg/ Sodium (Chloride) 100 mls @ 67 mls/hr IVPB TTS [facility]; Protocol Last Admin: 09/01/18 13:31 Dose: 67 mls/hr Insulin Human Regular (Novolin R) 0 unit SC ACHS [facility]; Protocol Last Admin: 09/01/18 12:07 Dose: Not Given Ipratropium [place] (Atrovent) 0.5 mg IH RQ4 [facility] Last Admin: 09/01/18 11:21 Dose: Not Given Methylprednisolone (Solu-Medrol) 40 mg IVP DAILY [facility] Last Admin: 09/01/18 09:53 Dose: Not Given Pantoprazole Sodium (Protonix Ec Tab) 40 mg PO DAILY [facility] Last Admin: 09/01/18 09:52 Dose: Not Given Rosuvastatin Calcium (Crestor) 5 mg PO HS [facility] Last Admin: 08/31/18 22:21 Dose: 5 mg - Labs Labs: 09/01/18 07:07 09/01/18 07:07 PT 10.7 SECONDS (9.7-12.2) 08/24/18 14:32 INR 1.0 08/24/18 14:32 APTT 27 SECONDS (21-34) 08/24/18 14:32
--- NOTE | 2018-09-01 17:55 | CP.PCM.PN ---
Subjective - Date & Time of Evaluation Date of Evaluation: 09/01/18 Time of Evaluation: 17:54 - Subjective Subjective: Pulmonary follow up, Covering Dr Post The Patient was seen and examined at the bedside, Medical records reviewed, and management issues were discussed and formulated with the house staff. Events reviewed Awake, comfortable, NAD Alert and oriented to self. Breathing unlabored, on room air O2 sat 100%. Denies any chest pain, SOB or Palpitations Objective - Vital Signs/Intake and Output Vital Signs (last 24 hours): Temp Pulse Resp BP Pulse Ox 99.3 F 105 H 20 168/74 H 98 09/01/18 15:56 09/01/18 15:56 09/01/18 15:56 09/01/18 15:56 09/01/18 15:56 Intake and Output: 09/01/18 09/01/18 06:59 18:59 Intake Total 225 Balance 225 - Medications Medications: Current Medications Benzonatate (Tessalon Perles) 100 mg PO TID [facility] Last Admin: 09/01/18 17:40 Dose: 100 mg Calcitriol (Rocaltrol) 0.25 mcg PO DAILY [facility] Last Admin: 09/01/18 09:53 Dose: Not Given Dextrose (Dextrose 50% Inj) 0 ml IV STAT PRN; Protocol PRN Reason: Hypoglycemia Protocol Last Admin: 08/26/18 06:59 Dose: 50 ml Dextrose (Glutose 15) 0 gm PO ONCE PRN; Protocol PRN Reason: Hypoglycemia Protocol Epoetin Justino (Procrit) 10,000 unit IV TTS [facility] Last Admin: 09/01/18 09:52 Dose: 10,000 unit Finasteride (Proscar) 5 mg PO DAILY [facility] Last Admin: 09/01/18 09:52 Dose: Not Given Folic Acid (Folic Acid) 1 mg PO DAILY [facility] Last Admin: 09/01/18 09:52 Dose: Not Given Glucagon (Glucagen Diagnostic Kit) 0 mg IM STAT PRN; Protocol PRN Reason: Hypoglycemia Protocol Dextrose (Dextrose 5% In Water 1000 Ml) 1,000 mls @ 0 mls/hr IV .Q0M PRN; Protocol PRN Reason: Hypoglycemia Protocol Vancomycin HCl 500 mg/ Sodium (Chloride) 100 mls @ 67 mls/hr IVPB TTS [facility]; Protocol Last Admin: 09/01/18 13:31 Dose: 67 mls/hr Insulin Human Regular (Novolin R) 0 unit SC ACHS [facility]; Protocol Last Admin: 09/01/18 17:30 Dose: 2 units Ipratropium [place] (Atrovent) 0.5 mg IH RQ4 [facility] Last Admin: 09/01/18 11:21 Dose: Not Given Methylprednisolone (Solu-Medrol) 40 mg IVP DAILY [facility] Last Admin: 09/01/18 09:53 Dose: Not Given Pantoprazole Sodium (Protonix Ec Tab) 40 mg PO DAILY [facility] Last Admin: 09/01/18 09:52 Dose: Not Given Rosuvastatin Calcium (Crestor) 5 mg PO HS [facility] Last Admin: 08/31/18 22:21 Dose: 5 mg - Labs Labs: 09/01/18 07:07 09/01/18 07:07 PT 10.7 SECONDS (9.7-12.2) 08/24/18 14:32 INR 1.0 08/24/18 14:32 APTT 27 SECONDS (21-34) 08/24/18 14:32 - Constitutional Appears: Well, Non-toxic, No Acute Distress - Head Exam Head Exam: ATRAUMATIC, NORMAL INSPECTION, NORMOCEPHALIC - Eye Exam Eye Exam: EOMI, Normal appearance Pupil Exam: NORMAL ACCOMODATION - ENT Exam ENT Exam: Mucous Membranes Moist, Normal Exam - Neck Exam Neck Exam: Full ROM, Normal Inspection. absent: Lymphadenopathy, Meningismus, Tenderness, Thyromegaly - Respiratory Exam Respiratory Exam: Prolonged Expiratory Phase, Rales, Rhonchi. absent: Accessory Muscle Use, Chest Wall Tenderness, Clear to Ausculation Bilateral, Wheezes - Cardiovascular Exam Cardiovascular Exam: REGULAR RHYTHM, +S1, +S2. absent: Murmur - GI/Abdominal Exam GI & Abdominal Exam: Soft, Normal Bowel Sounds. absent: Tenderness Assessment and Plan (1) Pulmonary fibrosis Status: Acute (2) Bronchiectasis Status: Acute (3) COPD (chronic obstructive pulmonary disease) Status: Acute (4) ILD (interstitial lung disease) Status: Acute (5) Pneumonia Status: Acute - Assessment and Plan (Free Text) Assessment: Continue present medication Continue antibiotics for left lower lobe pneumonia Follow-up culture and sensitivity. Follow-up chest x-ray Methylprednisolone (Solu-Medrol) 40 mg IVP DAILY Discontinued Brio Ellipta. Nebulizer treatment. Antitussive with Tessalon Perles 100 mg PO TID
[2018-09-02] MEDS: Ipratropium 0.02% Inhal Soln (0.5 mg/2.5 ml) UD IH SCH ×5 (01:16→16:27)
--- NOTE | 2018-09-02 02:26 | PN ---
DATE: 09/01/2018 SUBJECTIVE: The patient was seen today, and he still has some cough but he is breathing well. He said he had some abdominal pain, but he is feeling better. His left arm swelling was decreasing, and he said that this will be used later. However, they have removed the PD catheter but he still has a right hemodialysis catheter which also I wanted to get changed. OBJECTIVE: VITAL SIGNS: T-max is 99.3, heart rate of 105, blood pressure 168/74, respirations are 20. HEENT: Head is atraumatic, normocephalic. Right side, he has a dialysis catheter. NECK: Supple. LUNGS: Have occasional rhonchi bilaterally, otherwise, clear. HEART: S1, S2 present. ABDOMEN: Soft, nontender. No guarding, no rigidity present pain. He says that there is a dressing. He did not let me take off the covers. EXTREMITIES: Have no edema. Left arm has a dressing. He does have a history of bronchiectasis, pulmonary fibrosis, COPD, and also had one culture which had Staph epidermidis, and he had one dialysis catheter and peritoneal dialysis catheter at that time out of which peritoneal has been removed, and the repeat cultures have been negative and I have requested to change the catheter. We will see. We continue at this time the vancomycin post dialysis, and we will follow. Melissa Gaitan MD
[2018-09-02 06:57] LABS: BASO % 0.4 % (0.0-2.0); EOS # 0.2 K/uL (0.0-0.7); EOS % 1.7 % (0.0-4.0); HEMOGLOBIN 9.7 g/dL (12.0-18.0); LYMPH # 0.5 K/uL (1.0-4.3); LYMPH % 5.5 % (20.0-40.0); MEAN CELL VOLUME 95.8 fL (80.0-94.0); MEAN CORPUSCULAR HEMOGLOBIN 31.7 pg (27.0-31.0); MEAN CORPUSCULAR HGB CONC 33.1 g/dL (33.0-37.0); MEAN PLATELET VOLUME 7.8 fL (7.2-11.7); MONO # 0.8 K/uL (0.0-0.8); MONO % 8.3 % (0.0-10.0); NEUT # 8.2 K/uL (1.8-7.0); NEUT % 84.1 % (50.0-75.0); PLATELET COUNT 211 K/uL (130-400); RBC 3.06 Mil/uL (4.40-5.90); WHITE BLOOD COUNT 9.8 K/uL (4.8-10.8)
[2018-09-02] MEDS: (Novolin R) Insulin Human Regular 100 units/ml vial SC SCH ×3 (07:26→17:25)
--- NOTE | 2018-09-02 07:45 | CP.PCM.DIS ---
<ReeseceliacareyLeroy - Last Filed: 09/02/18 13:40> Provider - Provider Date of Admission: 08/24/18 15:50 Attending physician: Anderson Bosch DO Consults: 08/24/18 16:41 Nephrology Consult Routine Comment: Consulting Provider: Greg Dutton Consulting Physician: Greg Dutton Reason for Consult: ESRD, HD, hematuria x 2 weeks 08/24/18 16:50 Urology Consult Routine Comment: Consulting Provider: Toby Emerson Jr. Consulting Physician: Toby Emerson Jr. Reason for Consult: black watery stools, gross hematuria x 2 weeks 08/24/18 16:51 Gastroenterology Consult Routine Comment: Consulting Provider: Rancho Bell Consulting Physician: Rancho Bell Reason for Consult: black watery stools x 2 weeks, Hb 7.5, LFTs elevated 08/24/18 21:26 Inpatient NETWORK INTELLIGENCE ANALYST Core Measures Referral Routine Comment: Physician Instructions: referral Reason For Exam: COPD,ESRD 08/26/18 11:45 Pulmonology Consult Routine Comment: Consulting Provider: Geovani Post Consulting Physician: Geovani Post Reason for Consult: sob, pulmonary fibrosis, copd 08/26/18 18:36 Physician Consult Routine Comment: Consulting Provider: Melissa Gaitan Consulting Physician: Melissa Gaitan Reason for Consult: bacteremia/ESRD on HD 08/28/18 09:53 Physician Consult Routine Comment: Consulting Provider: Artis Dejesus Jr. Consulting Physician: Artis Dejesus Jr. Reason for Consult: pt with ESRD, please eval for AVF Time Spent in preparation of Discharge (in minutes): 40 Hospital Course - Lab Results Lab Results: Micro Results 08/27/18 14:10 Blood-During Dialysis Blood Culture - Final NO GROWTH AFTER 5 DAYS 08/27/18 14:10 Blood-During Dialysis Gram Stain - Final TEST NOT PERFORMED 08/27/18 13:50 Blood-During Dialysis Blood Culture - Final NO GROWTH AFTER 5 DAYS 08/27/18 13:50 Blood-During Dialysis Gram Stain - Final TEST NOT PERFORMED 08/26/18 21:10 Blood Blood Culture - Final NO GROWTH AFTER 5 DAYS 08/26/18 21:10 Blood Gram Stain - Final TEST NOT PERFORMED 08/26/18 13:20 Blood Blood Culture - Final NO GROWTH AFTER 5 DAYS 08/26/18 13:20 Blood Gram Stain - Final TEST NOT PERFORMED 08/25/18 07:15 Blood Blood Culture - Final NO GROWTH AFTER 5 DAYS 08/25/18 07:15 Blood Gram Stain - Final TEST NOT PERFORMED 08/25/18 07:41 Blood S.aureus & Coag-Neg Staph PNA FISH - Final 08/25/18 07:41 Blood Blood Culture - Final Staphylococcus Sp Coag Neg 08/25/18 07:41 Blood Gram Stain - Final 08/26/18 07:51 Urine,Clean Catch Urine Culture - Final No Growth (<1,000 CFU/ML) 08/25/18 15:03 Stool Stool Culture - Final NO SALMONELLA, SHIGELLA OR CAMPYLOBACTER ISOLATED. 08/25/18 15:03 Stool Ova and Parasite Concentrate Exam - Final 08/24/18 14:44 Urine Random Urine Culture - Final No Growth (<1,000 CFU/ML) Most Recent Lab Values WBC 9.8 K/uL (4.8-10.8) 09/02/18 06:48 RBC 3.06 Mil/uL (4.40-5.90) L 09/02/18 06:48 Hgb 9.7 g/dL (12.0-18.0) L 09/02/18 06:48 Hct 29.3 % (35.0-51.0) L 09/02/18 06:48 MCV 95.8 fL (80.0-94.0) H 09/02/18 06:48 MCH 31.7 pg (27.0-31.0) H 09/02/18 06:48 MCHC 33.1 g/dL (33.0-37.0) 09/02/18 06:48 RDW 20.0 % (11.5-14.5) H 09/02/18 06:48 Plt Count 211 K/uL (130-400) 09/02/18 06:48 MPV 7.8 fL (7.2-11.7) 09/02/18 06:48 Neut % (Auto) 84.1 % (50.0-75.0) H 09/02/18 06:48 Lymph % (Auto) 5.5 % (20.0-40.0) L 09/02/18 06:48 [place] % (Auto) 8.3 % (0.0-10.0) 09/02/18 06:48 Eos % (Auto) 1.7 % (0.0-4.0) 09/02/18 06:48 Baso % (Auto) 0.4 % (0.0-2.0) 09/02/18 06:48 Neut # (Auto) 8.2 K/uL (1.8-7.0) H 09/02/18 06:48 Lymph # (Auto) 0.5 K/uL (1.0-4.3) L 09/02/18 06:48 [place] # (Auto) 0.8 K/uL (0.0-0.8) 09/02/18 06:48 Eos # (Auto) 0.2 K/uL (0.0-0.7) 09/02/18 06:48 Baso # (Auto) 0.0 K/uL (0.0-0.2) 09/02/18 06:48 Neutrophils % (Manual) 87 % (50-75) H 09/01/18 07:07 Band Neutrophils % 1 % (0-2) 08/30/18 06:54 Lymphocytes % (Manual) 8 % (20-40) L 09/01/18 07:07 Reactive Lymphs % 1 % (0-0) H 08/30/18 06:54 Monocytes % (Manual) 3 % (0-10) 09/01/18 07:07 Eosinophils % (Manual) 2 % (0-4) 09/01/18 07:07 Platelet Estimate Normal (NORMAL) 09/01/18 07:07 Polychromasia Slight 09/01/18 07:07 Hypochromasia (manual) Slight 09/01/18 07:07 Poikilocytosis (manual Slight 08/28/18 08:12 Anisocytosis (manual) Slight 09/01/18 07:07 Microcytosis (manual) Slight 08/28/18 08:12 Macrocytosis (manual) Slight 08/28/18 08:12 Tear Drop Cells Slight 08/28/18 08:12 Ovalocytes Slight 08/28/18 08:12 Jose Cells Slight 08/25/18 07:32 PT 10.7 SECONDS (9.7-12.2) 08/24/18 14:32 INR 1.0 08/24/18 14:32 APTT 27 SECONDS (21-34) 08/24/18 14:32 Puncture Site Lr 08/30/18 16:08 pCO2 42 mm/Hg (35-45) 08/30/18 16:08 pO2 67 mm/Hg (80-100) L 08/30/18 16:08 HCO3 29.2 mmol/L (21-28) H 08/30/18 16:08 ABG pH 7.46 (7.35-7.45) H 08/30/18 16:08 ABG Total CO2 31.2 mmol/L (22-28) H 08/30/18 16:08 ABG O2 Saturation 96.9 % (95-98) 08/30/18 16:08 ABG Base Excess 5.5 mmol/L (-2.0-3.0) H 08/30/18 16:08 ABG Hemoglobin 9.8 g/dL (11.7-17.4) L 08/30/18 16:08 ABG Carboxyhemoglobin 2.2 % (0.5-1.5) H 08/30/18 16:08 POC ABG HHb (Measured) 3.0 % (0.0-5.0) 08/30/18 16:08 ABG Methemoglobin 1.4 % (0.0-3.0) 08/30/18 16:08 Mark Test Pos 08/30/18 16:08 A-a O2 Difference 52.0 mm/Hg 08/30/18 16:08 Respiratory Index 0.8 08/30/18 16:08 Hgb O2 Saturation 93.4 % (95.0-98.0) L 08/30/18 16:08 Liter Flow 1.0 08/30/18 16:08 FiO2 24.0 % 08/30/18 16:08 Sodium 135 mmol/L (132-148) 09/01/18 07:07 Potassium 3.8 mmol/L (3.6-5.2) 09/01/18 07:07 Chloride 104 mmol/L (98-107) 09/01/18 07:07 Carbon Dioxide 23 mmol/L (22-30) 09/01/18 07:07 Anion Gap 12 (10-20) 09/01/18 07:07 BUN 36 mg/dL (9-20) H 09/01/18 07:07 Creatinine 4.4 mg/dL (0.8-1.5) H 09/01/18 07:07 Est GFR ( Amer) 16 09/01/18 07:07 Est GFR (Non-Af Amer) 13 09/01/18 07:07 POC Glucose (mg/dL) 130 mg/dL (65-110) H 09/01/18 21:33 Random Glucose 104 mg/dL (75-110) 09/01/18 07:07 Calcium 7.7 mg/dl (8.6-10.4) L 09/01/18 07:07 Phosphorus 4.4 mg/dL (2.5-4.5) 09/01/18 07:07 Magnesium 1.5 mg/dL (1.6-2.3) L 09/01/18 07:07 Iron 59 ug/dL (49-181) 08/24/18 21:04 TIBC 180 ug/dL (250-450) L 08/24/18 21:04 % Saturation 33 (20-55) 08/24/18 21:04 Ferritin 1360.0 ng/mL 08/24/18 21:04 Total Bilirubin 0.7 mg/dL (0.2-1.3) 09/01/18 07:07 AST 18 U/L (17-59) 09/01/18 07:07 ALT 20 U/L (21-72) L 09/01/18 07:07 Alkaline Phosphatase 65 U/L (38-126) 09/01/18 07:07 Total Protein 4.7 g/dL (6.3-8.3) L 09/01/18 07:07 Albumin 2.4 g/dL (3.5-5.0) L 09/01/18 07:07 Globulin 2.3 gm/dL (2.2-3.9) 09/01/18 07:07 Albumin/Globulin Ratio 1.1 (1.0-2.1) 09/01/18 07:07 Vitamin B12 590 pg/mL (239-931) 08/24/18 21:04 Folate > 20.0 ng/mL 08/24/18 21:04 PTH Intact Whole Molec 134 pg/mL (14-64) H 08/26/18 06:22 Urine Color Red (YELLOW) 08/24/18 14:44 Urine Clarity Clear (Clear) 08/24/18 14:44 Urine pH 8.0 (5.0-8.0) 08/24/18 14:44 Ur Specific [place] 1.026 (1.003-1.030) 08/24/18 14:44 Urine Protein 2+ mg/dL (NEGATIVE) H 08/24/18 14:44 Urine Glucose (UA) 2+ mg/dL (Normal) H 08/24/18 14:44 Urine Ketones Trace mg/dL (NEGATIVE) 08/24/18 14:44 Urine Blood 3+ (NEGATIVE) H 08/24/18 14:44 Urine Nitrate Negative (NEGATIVE) 08/24/18 14:44 Urine Bilirubin Negative (NEGATIVE) 08/24/18 14:44 Urine Urobilinogen Normal mg/dL (0.2-1.0) 08/24/18 14:44 Ur Leukocyte Esterase Neg Charmaine/uL (Negative) 08/24/18 14:44 Urine WBC (Auto) 6 /hpf (0-5) H 08/24/18 14:44 Urine RBC (Auto) 409 /hpf (0-3) H 08/24/18 14:44 Ur Squamous Epith Cells 2 /hpf (0-5) 08/24/18 14:44 Urine Bacteria Occ (<OCC) H 08/24/18 14:44 Stool Occult Blood Negative (NEGATIVE) 08/25/18 20:01 Stool Leukocytes, Qual Negative (NEGATIVE) 08/25/18 15:03 Random Vancomycin 10.5 ug/mL 09/01/18 11:19 C. difficile Ag & Toxin Negative (NEGATIVE) 08/25/18 15:03 Blood Type O POSITIVE 08/28/18 17:04 Antibody Screen Negative 08/28/18 17:04 - Hospital Course Hospital Course: HPI: Patient is an 82 year old male with past medical history of HTN, HLD, DM, ESRD on HD TTS, COPD, and chronic anemia presenting to ED for gross hematuria and black watery stools for the past 2 weeks. Patient states he has had several episodes of diarrhea daily, approximately every 2 hours. Nothing makes it better. He denies decreased appetite or worsening of diarrhea with food intake, stating it is constant ~ every 2 hours regardless. Hematuria has been present for approximately 2 weeks as well. Of note, urine by bedside appeared grossly bloody. He states he thought it would have resolved on its own, which is why he did not come sooner. He endorses associated abdominal cramping/pain on days he receives HD (TTS), but denies any current abdominal pain. His last HD session was yesterday. No fevers/chills, headaches, chest pain, palpitations, acute sob, vomiting, diarrhea, dysuria, or increased urinary frequency. 12 point review of systems reviewed and otherwise negative. During course of admission: Patient was transfused 2 units pRBCs due to low hemoglobin level. CT abdomen/pe lvis was obtained and revealed b/l nephrolithiasis with no evidence of hydronephrosis, gallbadder distention with cholethiasis, right lower quadrant pelvic drainage tube catheter in place with small amount of free fluid in pelvic space. Colonic diverticulosis. RLL consolidation with extensive bibasilar bronchiectasis. Urology (Dr. Emerson) was consulted and patient underwent cystoscopy, revealing enlarged prostate/trabeculated bladder, likely the cause of hematuria. Patient was started on finasteride and hematuria improved, with Hb stabilizing. GI (Dr. Bell) was consulted for black watery stools on admission. No new episodes of overt bloody bowel movement were noted during hospital course. Occult stool testing and general stool workup were negative. Colonscopy was performed, revealing internal hemorrhoids. multiple diverticula in sigmoid and descending colon, with no evidence of diverticulitis. Pulmonology (Dr. Post) was consulted for chronic respiratory issues and ID (Dr. Gaitan) was consulted in light of potential new left lobe infiltrate and positive blood culture x 1 for S.epidermidis. Respiratory treatment was initiated and vancomycin was given post-dialysis sessions. Repeat blood cultures (08/27) x 2 returned negative. Nephrology (Dr. Dutton) was consulted for continuation of hemodialysis in the inpatient setting. Patient remained afebrile during course of admission with no leukocytosis noted and no positive blood cultures on repeat examination. Patient is medically stable for discharge to home, as per Dr. Bosch. Patient is instructed to continue outpatient dialysis session at [facility] on current schedule. Patient will need to continue Vancomycin after the next 3 dialysis sessions. Patient is instructed to take all medications as prescribed. Please follow up with your primary care provider within 3-5 days of discharge for further monitoring and care of all chronic medical issues. If symptoms worsen or recur, please return to the ED immediately. The following is a summary of hospital course. For full detail, please refer to EMR. - Date & Time of H&P Date of H&P: 09/02/18 Time of H&P: 13:40 Discharge Exam - Head Exam Head Exam: ATRAUMATIC, NORMAL INSPECTION, NORMOCEPHALIC - Eye Exam Eye Exam: EOMI, Normal appearance, PERRL Pupil Exam: NORMAL ACCOMODATION - ENT Exam ENT Exam: Mucous Membranes Moist, Normal Exam - Neck Exam Neck exam: Full Rom, Normal Inspection - Respiratory Exam Respiratory Exam: Decreased Breath Sounds (chronic in nature). absent: Accessory Muscle Use, Respiratory Distress - Cardiovascular Exam Cardiovascular Exam: REGULAR RHYTHM, +S1, +S2 - GI/Abdominal Exam GI & Abdominal Exam: Normal Bowel Sounds, Soft, Unremarkable. absent: Distended, Firm, Guarding, Rebound, Rigid, Tenderness - Extremities Exam Extremities exam: normal capillary refill, normal inspection, pedal pulses present - Back Exam Back exam: NORMAL INSPECTION - Neurological Exam Neurological exam: Alert, CN II-XII Intact, Oriented x3 - Skin Skin Exam: Dry, Intact, Normal Color, Warm Discharge Plan - Discharge Medications Prescriptions: amLODIPine [Norvasc] 5 mg PO DAILY #30 tab Calcitriol [Rocaltrol] 0.25 mcg PO DAILY #30 sgl Famotidine [Pepcid] 20 mg PO DAILY PRN 14 Days tab PRN Reason: Heartburn Finasteride [Proscar] 5 mg PO DAILY #30 tab Folic Acid 1 mg PO DAILY #30 tab predniSONE [predniSONE Tab] 10 mg PO DAILY #14 tab Rosuvastatin Calcium [Crestor] 5 mg PO HS #30 tab Umeclidinium Brm/Vilanterol Tr [Anoro Ellipta 62.5-25 Mcg INH] 1 each IH DAILY #1 blst.w.dev Vancomycin [Vancomycin Inj] 500 mg IVPB TTS 14 Days vial - Follow Up Plan Condition: FAIR Disposition: HOME/ ROUTINE Instructions: Colonoscopy (DC), Upper GI Endoscopy (DC), End Stage Kidney Disease (DC), Cystoscopy (DC), Normocytic Normochromic Anemia (DC), Dialysis and Diet, Gastrointestinal Bleeding (DC) Additional Instructions: Patient remained afebrile during course of admission with no leukocytosis noted and no positive blood cultures on repeat examination. Patient is medically stable for discharge to home, as per Dr. Bosch. Patient is instructed to continue outpatient dialysis session at [facility] on current schedule. Patient will need to continue Vancomycin after the next 3 dialysis sessions. Patient is instructed to take all medications as prescribed. Please follow up with your primary care provider within 3-5 days of discharge for further monitoring and care of all chronic medical issues. If symptoms worsen or recur, please return to the ED immediately. <Anderson Bosch - Last Filed: 09/02/18 16:25> Provider - Provider Date of Admission: 08/24/18 15:50 Attending physician: Anderson Bosch DO Consults: 08/24/18 16:41 Nephrology Consult Routine Comment: Consulting Provider: Greg Dutton Consulting Physician: Greg Dutton Reason for Consult: ESRD, HD, hematuria x 2 weeks 08/24/18 16:50 Urology Consult Routine Comment: Consulting Provider: Toby Emerson Jr. Consulting Physician: Toby Emerson Jr. Reason for Consult: black watery stools, gross hematuria x 2 weeks 08/24/18 16:51 Gastroenterology Consult Routine Comment: Consulting Provider: Rancho Bell Consulting Physician: Rancho Bell Reason for Consult: black watery stools x 2 weeks, Hb 7.5, LFTs elevated 08/24/18 21:26 Inpatient NETWORK INTELLIGENCE ANALYST Core Measures Referral Routine Comment: Physician Instructions: referral Reason For Exam: COPD,ESRD 08/26/18 11:45 Pulmonology Consult Routine Comment: Consulting Provider: Geovani Post Consulting Physician: Geovani Post Reason for Consult: sob, pulmonary fibrosis, copd 08/26/18 18:36 Physician Consult Routine Comment: Consulting Provider: Melissa Gaitan Consulting Physician: Melissa Gaitan Reason for Consult: bacteremia/ESRD on HD 08/28/18 09:53 Physician Consult Routine Comment: Consulting Provider: Artis Dejesus Jr. Consulting Physician: Artis Dejesus Jr. Reason for Consult: pt with ESRD, please eval for AVF Hospital Course - Lab Results Lab Results: Micro Results 08/27/18 14:10 Blood-During Dialysis Blood Culture - Final NO GROWTH AFTER 5 DAYS 08/27/18 14:10 Blood-During Dialysis Gram Stain - Final TEST NOT PERFORMED 08/27/18 13:50 Blood-During Dialysis Blood Culture - Final NO GROWTH AFTER 5 DAYS 08/27/18 13:50 Blood-During Dialysis Gram Stain - Final TEST NOT PERFORMED 08/26/18 21:10 Blood Blood Culture - Final NO GROWTH AFTER 5 DAYS 08/26/18 21:10 Blood Gram Stain - Final TEST NOT PERFORMED 08/26/18 13:20 Blood Blood Culture - Final NO GROWTH AFTER 5 DAYS 08/26/18 13:20 Blood Gram Stain - Final TEST NOT PERFORMED 08/25/18 07:15 Blood Blood Culture - Final NO GROWTH AFTER 5 DAYS 08/25/18 07:15 Blood Gram Stain - Final TEST NOT PERFORMED 08/25/18 07:41 Blood S.aureus & Coag-Neg Staph PNA FISH - Final 08/25/18 07:41 Blood Blood Culture - Final Staphylococcus Sp Coag Neg 08/25/18 07:41 Blood Gram Stain - Final 08/26/18 07:51 Urine,Clean Catch Urine Culture - Final No Growth (<1,000 CFU/ML) 08/25/18 15:03 Stool Stool Culture - Final NO SALMONELLA, SHIGELLA OR CAMPYLOBACTER ISOLATED. 08/25/18 15:03 Stool Ova and Parasite Concentrate Exam - Final 08/24/18 14:44 Urine Random Urine Culture - Final No Growth (<1,000 CFU/ML) Most Recent Lab Values WBC 9.8 K/uL (4.8-10.8) 09/02/18 06:48 RBC 3.06 Mil/uL (4.40-5.90) L 09/02/18 06:48 Hgb 9.7 g/dL (12.0-18.0) L 09/02/18 06:48 Hct 29.3 % (35.0-51.0) L 09/02/18 06:48 MCV 95.8 fL (80.0-94.0) H 09/02/18 06:48 MCH 31.7 pg (27.0-31.0) H 09/02/18 06:48 MCHC 33.1 g/dL (33.0-37.0) 09/02/18 06:48 RDW 20.0 % (11.5-14.5) H 09/02/18 06:48 Plt Count 211 K/uL (130-400) 09/02/18 06:48 MPV 7.8 fL (7.2-11.7) 09/02/18 06:48 Neut % (Auto) 84.1 % (50.0-75.0) H 09/02/18 06:48 Lymph % (Auto) 5.5 % (20.0-40.0) L 09/02/18 06:48 [place] % (Auto) 8.3 % (0.0-10.0) 09/02/18 06:48 Eos % (Auto) 1.7 % (0.0-4.0) 09/02/18 06:48 Baso % (Auto) 0.4 % (0.0-2.0) 09/02/18 06:48 Neut # (Auto) 8.2 K/uL (1.8-7.0) H 09/02/18 06:48 Lymph # (Auto) 0.5 K/uL (1.0-4.3) L 09/02/18 06:48 [place] # (Auto) 0.8 K/uL (0.0-0.8) 09/02/18 06:48 Eos # (Auto) 0.2 K/uL (0.0-0.7) 09/02/18 06:48 Baso # (Auto) 0.0 K/uL (0.0-0.2) 09/02/18 06:48 Neutrophils % (Manual) 88 % (50-75) H 09/02/18 06:48 Band Neutrophils % 1 % (0-2) 08/30/18 06:54 Lymphocytes % (Manual) 4 % (20-40) L 09/02/18 06:48 Reactive Lymphs % 1 % (0-0) H 09/02/18 06:48 Monocytes % (Manual) 5 % (0-10) 09/02/18 06:48 Eosinophils % (Manual) 2 % (0-4) 09/02/18 06:48 Platelet Estimate Normal (NORMAL) 09/02/18 06:48 Polychromasia Slight 09/01/18 07:07 Hypochromasia (manual) Slight 09/01/18 07:07 Poikilocytosis (manual Slight 08/28/18 08:12 Anisocytosis (manual) Moderate 09/02/18 06:48 Microcytosis (manual) Slight 08/28/18 08:12 Macrocytosis (manual) Slight 08/28/18 08:12 Tear Drop Cells Slight 08/28/18 08:12 Ovalocytes Slight 08/28/18 08:12 Jose Cells Slight 08/25/18 07:32 PT 10.7 SECONDS (9.7-12.2) 08/24/18 14:32 INR 1.0 08/24/18 14:32 APTT 27 SECONDS (21-34) 08/24/18 14:32 Puncture Site Lr 08/30/18 16:08 pCO2 42 mm/Hg (35-45) 08/30/18 16:08 pO2 67 mm/Hg (80-100) L 08/30/18 16:08 HCO3 29.2 mmol/L (21-28) H 08/30/18 16:08 ABG pH 7.46 (7.35-7.45) H 08/30/18 16:08 ABG Total CO2 31.2 mmol/L (22-28) H 08/30/18 16:08 ABG O2 Saturation 96.9 % (95-98) 08/30/18 16:08 ABG Base Excess 5.5 mmol/L (-2.0-3.0) H 08/30/18 16:08 ABG Hemoglobin 9.8 g/dL (11.7-17.4) L 08/30/18 16:08 ABG Carboxyhemoglobin 2.2 % (0.5-1.5) H 08/30/18 16:08 POC ABG HHb (Measured) 3.0 % (0.0-5.0) 08/30/18 16:08 ABG Methemoglobin 1.4 % (0.0-3.0) 08/30/18 16:08 Mark Test Pos 08/30/18 16:08 A-a O2 Difference 52.0 mm/Hg 08/30/18 16:08 Respiratory Index 0.8 08/30/18 16:08 Hgb O2 Saturation 93.4 % (95.0-98.0) L 08/30/18 16:08 Liter Flow 1.0 08/30/18 16:08 FiO2 24.0 % 08/30/18 16:08 Sodium 135 mmol/L (132-148) 09/02/18 06:48 Potassium 3.3 mmol/L (3.6-5.2) L 09/02/18 06:48 Chloride 102 mmol/L (98-107) 09/02/18 06:48 Carbon Dioxide 29 mmol/L (22-30) 09/02/18 06:48 Anion Gap 7 (10-20) L 09/02/18 06:48 BUN 21 mg/dL (9-20) H 09/02/18 06:48 Creatinine 3.3 mg/dL (0.8-1.5) H 09/02/18 06:48 Est GFR ( Amer) 22 09/02/18 06:48 Est GFR (Non-Af Amer) 18 09/02/18 06:48 POC Glucose (mg/dL) 130 mg/dL (65-110) H 09/01/18 21:33 Random Glucose 119 mg/dL (75-110) H 09/02/18 06:48 Calcium 7.7 mg/dl (8.6-10.4) L 09/02/18 06:48 Phosphorus 3.1 mg/dL (2.5-4.5) 09/02/18 06:48 Magnesium 1.6 mg/dL (1.6-2.3) 09/02/18 06:48 Iron 59 ug/dL (49-181) 08/24/18 21:04 TIBC 180 ug/dL (250-450) L 08/24/18 21:04 % Saturation 33 (20-55) 08/24/18 21:04 Ferritin 1360.0 ng/mL 08/24/18 21:04 Total Bilirubin 0.4 mg/dL (0.2-1.3) 09/02/18 06:48 AST 13 U/L (17-59) L D 09/02/18 06:48 ALT 12 U/L (21-72) L D 09/02/18 06:48 Alkaline Phosphatase 73 U/L (38-126) 09/02/18 06:48 Total Protein 4.8 g/dL (6.3-8.3) L 09/02/18 06:48 Albumin 2.4 g/dL (3.5-5.0) L 09/02/18 06:48 Globulin 2.3 gm/dL (2.2-3.9) 09/02/18 06:48 Albumin/Globulin Ratio 1.0 (1.0-2.1) 09/02/18 06:48 Vitamin B12 590 pg/mL (239-931) 08/24/18 21:04 Folate > 20.0 ng/mL 08/24/18 21:04 PTH Intact Whole Molec 134 pg/mL (14-64) H 08/26/18 06:22 Urine Color Red (YELLOW) 08/24/18 14:44 Urine Clarity Clear (Clear) 08/24/18 14:44 Urine pH 8.0 (5.0-8.0) 08/24/18 14:44 Ur Specific [place] 1.026 (1.003-1.030) 08/24/18 14:44 Urine Protein 2+ mg/dL (NEGATIVE) H 08/24/18 14:44 Urine Glucose (UA) 2+ mg/dL (Normal) H 08/24/18 14:44 Urine Ketones Trace mg/dL (NEGATIVE) 08/24/18 14:44 Urine Blood 3+ (NEGATIVE) H 08/24/18 14:44 Urine Nitrate Negative (NEGATIVE) 08/24/18 14:44 Urine Bilirubin Negative (NEGATIVE) 08/24/18 14:44 Urine Urobilinogen Normal mg/dL (0.2-1.0) 08/24/18 14:44 Ur Leukocyte Esterase Neg Charmaine/uL (Negative) 08/24/18 14:44 Urine WBC (Auto) 6 /hpf (0-5) H 08/24/18 14:44 Urine RBC (Auto) 409 /hpf (0-3) H 08/24/18 14:44 Ur Squamous Epith Cells 2 /hpf (0-5) 08/24/18 14:44 Urine Bacteria Occ (<OCC) H 08/24/18 14:44 Stool Occult Blood Negative (NEGATIVE) 08/25/18 20:01 Stool Leukocytes, Qual Negative (NEGATIVE) 08/25/18 15:03 Random Vancomycin 10.5 ug/mL 09/01/18 11:19 C. difficile Ag & Toxin Negative (NEGATIVE) 08/25/18 15:03 Blood Type O POSITIVE 08/28/18 17:04 Antibody Screen Negative 08/28/18 17:04 Attending/Attestation - Attestation I have personally seen and examined this patient.: Yes I have fully participated in the care of the patient.: Yes I have reviewed all pertinent clinical information, including history, physical exam and plan: Yes Notes (Text): 09/02/18 16:21 Medical attending: Patient was seen and examined by me. Agree with the above note by the medical insurance clerk The patient reported no pain today. He still has the chronic coughing as mentioned previously he has a history of fibrosis He denies having hematuria , his Hgb has been stable With reguards to the blood cultures - he will be continued on the vancomycin during his HD days He has TTS HD at [facility] The patient has been observed walking with PT in the hallway, he will need a cane to go with As mentioned before the patient has an AVF now. There are good pulses in the wrist, sensation intact. He had removal of the PD We wish him the best, Anderson Bosch
[2018-09-02 07:48] LABS: ALBUMIN 2.4 g/dL (3.5-5.0); CALCIUM 7.7 mg/dl (8.6-10.4)
[2018-09-02 08:15] LABS: EOSINOPHIL 2 % (0-4); LYMPHOCYTE 4 % (20-40); MONOCYTE 5 % (0-10); NEUTROPHIL 88 % (50-75); PLATELET ESTIMATE NORMAL (NORMAL); REACTIVE LYMPHOCYTES 1 % (0-0); TOTAL CELLS COUNTED 100
[2018-09-02 08:16] LABS: ANISOCYTOSIS MODERATE
[2018-09-02] MEDS: Pantoprazole 40 mg EC Tab PO SCH (10:51)
[2018-09-02] MEDS: MethylPREDNISolone 40 mg Vial IVP SCH (10:52)
--- NOTE | 2018-09-02 13:00 | CP.PCM.PN ---
Subjective - Date & Time of Evaluation Date of Evaluation: 09/02/18 Time of Evaluation: 13:00 - Subjective Subjective: Pulmonary follow up, Covering Dr Post The Patient was seen and examined at the bedside, Medical records reviewed, and management issues were discussed and formulated with the house staff. Events reviewed Awake, comfortable, NAD Alert and oriented to self. Breathing unlabored, on room air O2 sat 100%. Denies any chest pain, SOB or Palpitations Objective - Vital Signs/Intake and Output Vital Signs (last 24 hours): Temp Pulse Resp BP Pulse Ox 98.8 F 86 18 156/56 H 100 09/02/18 07:00 09/02/18 07:00 09/02/18 07:00 09/02/18 07:00 09/02/18 07:00 - Medications Medications: Current Medications Benzonatate (Tessalon Perles) 100 mg PO TID [facility] Last Admin: 09/02/18 10:52 Dose: 100 mg Calcitriol (Rocaltrol) 0.25 mcg PO DAILY [facility] Last Admin: 09/02/18 10:51 Dose: 0.25 mcg Dextrose (Dextrose 50% Inj) 0 ml IV STAT PRN; Protocol PRN Reason: Hypoglycemia Protocol Last Admin: 08/26/18 06:59 Dose: 50 ml Dextrose (Glutose 15) 0 gm PO ONCE PRN; Protocol PRN Reason: Hypoglycemia Protocol Epoetin Justino (Procrit) 10,000 unit IV TTS [facility] Last Admin: 09/01/18 09:52 Dose: 10,000 unit Finasteride (Proscar) 5 mg PO DAILY [facility] Last Admin: 09/02/18 10:52 Dose: 5 mg Folic Acid (Folic Acid) 1 mg PO DAILY [facility] Last Admin: 09/02/18 10:52 Dose: 1 mg Glucagon (Glucagen Diagnostic Kit) 0 mg IM STAT PRN; Protocol PRN Reason: Hypoglycemia Protocol Dextrose (Dextrose 5% In Water 1000 Ml) 1,000 mls @ 0 mls/hr IV .Q0M PRN; Protocol PRN Reason: Hypoglycemia Protocol Vancomycin HCl 500 mg/ Sodium (Chloride) 100 mls @ 67 mls/hr IVPB TTS [facility]; Protocol Last Admin: 09/01/18 13:31 Dose: 67 mls/hr Insulin Human Regular (Novolin R) 0 unit SC ACHS [facility]; Protocol Last Admin: 09/02/18 12:34 Dose: 3 units Ipratropium [place] (Atrovent) 0.5 mg IH RQ4 [facility] Last Admin: 09/02/18 10:59 Dose: 0.5 mg Methylprednisolone (Solu-Medrol) 40 mg IVP DAILY [facility] Last Admin: 09/02/18 10:52 Dose: 40 mg Pantoprazole Sodium (Protonix Ec Tab) 40 mg PO DAILY [facility] Last Admin: 09/02/18 10:51 Dose: 40 mg Rosuvastatin Calcium (Crestor) 5 mg PO HS [facility] Last Admin: 09/01/18 21:20 Dose: 5 mg - Labs Labs: 09/02/18 06:48 09/02/18 06:48 PT 10.7 SECONDS (9.7-12.2) 08/24/18 14:32 INR 1.0 08/24/18 14:32 APTT 27 SECONDS (21-34) 08/24/18 14:32 - Constitutional Appears: Well, Non-toxic - Head Exam Head Exam: ATRAUMATIC, NORMAL INSPECTION - Eye Exam Eye Exam: EOMI, PERRL Pupil Exam: NORMAL ACCOMODATION - ENT Exam ENT Exam: Mucous Membranes Moist, Normal Exam - Neck Exam Neck Exam: Full ROM, Normal Inspection - Respiratory Exam Respiratory Exam: Clear to Ausculation Bilateral, NORMAL BREATHING PATTERN. absent: Accessory Muscle Use - Cardiovascular Exam Cardiovascular Exam: REGULAR RHYTHM, RRR, +S1, +S2. absent: JVD - GI/Abdominal Exam GI & Abdominal Exam: Soft, Normal Bowel Sounds. absent: Tenderness - Rectal Exam Rectal Exam: NORMAL INSPECTION Assessment and Plan (1) Pulmonary fibrosis Status: Acute (2) Bronchiectasis Status: Acute (3) COPD (chronic obstructive pulmonary disease) Status: Acute (4) ILD (interstitial lung disease) Status: Acute (5) Pneumonia Status: Acute - Assessment and Plan (Free Text) Assessment: Continue present medication Continue antibiotics for left lower lobe pneumonia Follow-up culture and sensitivity. Follow-up chest x-ray Methylprednisolone (Solu-Medrol) 40 mg IVP DAILY Discontinued Brio Ellipta. Nebulizer treatment. Antitussive with Tessalon Perles 100 mg PO TID
--- NOTE | 2018-09-02 13:33 | CP.PCM.PN ---
Subjective - Date & Time of Evaluation Date of Evaluation: 09/02/18 Time of Evaluation: 13:31 - Subjective Subjective: s/p dialysis 3/7 feels better AV fistula with bruit same mild cough PD cath removed Objective - Vital Signs/Intake and Output Vital Signs (last 24 hours): Temp Pulse Resp BP Pulse Ox 98.8 F 86 18 156/56 H 100 09/02/18 07:00 09/02/18 07:00 09/02/18 07:00 09/02/18 07:00 09/02/18 07:00 - Medications Medications: Current Medications Benzonatate (Tessalon Perles) 100 mg PO TID [facility] Last Admin: 09/02/18 13:13 Dose: 100 mg Calcitriol (Rocaltrol) 0.25 mcg PO DAILY [facility] Last Admin: 09/02/18 10:51 Dose: 0.25 mcg Dextrose (Dextrose 50% Inj) 0 ml IV STAT PRN; Protocol PRN Reason: Hypoglycemia Protocol Last Admin: 08/26/18 06:59 Dose: 50 ml Dextrose (Glutose 15) 0 gm PO ONCE PRN; Protocol PRN Reason: Hypoglycemia Protocol Epoetin Justino (Procrit) 10,000 unit IV TTS [facility] Last Admin: 09/01/18 09:52 Dose: 10,000 unit Finasteride (Proscar) 5 mg PO DAILY [facility] Last Admin: 09/02/18 10:52 Dose: 5 mg Folic Acid (Folic Acid) 1 mg PO DAILY [facility] Last Admin: 09/02/18 10:52 Dose: 1 mg Glucagon (Glucagen Diagnostic Kit) 0 mg IM STAT PRN; Protocol PRN Reason: Hypoglycemia Protocol Dextrose (Dextrose 5% In Water 1000 Ml) 1,000 mls @ 0 mls/hr IV .Q0M PRN; Protocol PRN Reason: Hypoglycemia Protocol Vancomycin HCl 500 mg/ Sodium (Chloride) 100 mls @ 67 mls/hr IVPB TTS [facility]; Protocol Last Admin: 09/01/18 13:31 Dose: 67 mls/hr Insulin Human Regular (Novolin R) 0 unit SC ACHS [facility]; Protocol Last Admin: 09/02/18 12:34 Dose: 3 units Ipratropium [place] (Atrovent) 0.5 mg IH RQ4 [facility] Last Admin: 09/02/18 10:59 Dose: 0.5 mg Methylprednisolone (Solu-Medrol) 40 mg IVP DAILY [facility] Last Admin: 09/02/18 10:52 Dose: 40 mg Pantoprazole Sodium (Protonix Ec Tab) 40 mg PO DAILY [facility] Last Admin: 09/02/18 10:51 Dose: 40 mg Rosuvastatin Calcium (Crestor) 5 mg PO HS [facility] Last Admin: 09/01/18 21:20 Dose: 5 mg - Labs Labs: 09/02/18 06:48 09/02/18 06:48 PT 10.7 SECONDS (9.7-12.2) 08/24/18 14:32 INR 1.0 08/24/18 14:32 APTT 27 SECONDS (21-34) 08/24/18 14:32 - Constitutional Appears: No Acute Distress, Chronically Ill - Head Exam Head Exam: ATRAUMATIC, NORMAL INSPECTION - Eye Exam Eye Exam: EOMI, Normal appearance - Neck Exam Neck Exam: Normal Inspection. absent: Tenderness - Cardiovascular Exam Cardiovascular Exam: REGULAR RHYTHM, +S1 - GI/Abdominal Exam GI & Abdominal Exam: Soft. absent: Tenderness - Extremities Exam Extremities Exam: Normal Inspection. absent: Tenderness - Neurological Exam Neurological Exam: Awake, CN II-XII Intact - Skin Skin Exam: Dry, Warm Assessment and Plan (1) Hematuria Status: Acute (2) Anemia Status: Acute (3) ESRD on dialysis Status: Acute (4) Gastrointestinal hemorrhage Status: Acute (5) Bronchiectasis Status: Acute (6) COPD exacerbation Status: Acute - Assessment and Plan (Free Text) Plan: Dialysis TTS When stable return to dialysis center - [facility] per ID- can be continued as outpatient
--- NOTE | 2018-09-02 15:33 | CP.PCM.PN ---
Subjective - Date & Time of Evaluation Date of Evaluation: 09/02/18 Time of Evaluation: 14:00 - Subjective Subjective: dictated Objective - Vital Signs/Intake and Output Vital Signs (last 24 hours): Temp Pulse Resp BP Pulse Ox 98.8 F 86 18 156/56 H 100 09/02/18 07:00 09/02/18 07:00 09/02/18 07:00 09/02/18 07:00 09/02/18 07:00 - Medications Medications: Current Medications Benzonatate (Tessalon Perles) 100 mg PO TID [facility] Last Admin: 09/02/18 13:13 Dose: 100 mg Calcitriol (Rocaltrol) 0.25 mcg PO DAILY [facility] Last Admin: 09/02/18 10:51 Dose: 0.25 mcg Dextrose (Dextrose 50% Inj) 0 ml IV STAT PRN; Protocol PRN Reason: Hypoglycemia Protocol Last Admin: 08/26/18 06:59 Dose: 50 ml Dextrose (Glutose 15) 0 gm PO ONCE PRN; Protocol PRN Reason: Hypoglycemia Protocol Epoetin Justino (Procrit) 10,000 unit IV TTS [facility] Last Admin: 09/01/18 09:52 Dose: 10,000 unit Finasteride (Proscar) 5 mg PO DAILY [facility] Last Admin: 09/02/18 10:52 Dose: 5 mg Folic Acid (Folic Acid) 1 mg PO DAILY [facility] Last Admin: 09/02/18 10:52 Dose: 1 mg Glucagon (Glucagen Diagnostic Kit) 0 mg IM STAT PRN; Protocol PRN Reason: Hypoglycemia Protocol Dextrose (Dextrose 5% In Water 1000 Ml) 1,000 mls @ 0 mls/hr IV .Q0M PRN; Protocol PRN Reason: Hypoglycemia Protocol Vancomycin HCl 500 mg/ Sodium (Chloride) 100 mls @ 67 mls/hr IVPB TTS [facility]; Protocol Last Admin: 09/01/18 13:31 Dose: 67 mls/hr Insulin Human Regular (Novolin R) 0 unit SC ACHS [facility]; Protocol Last Admin: 09/02/18 12:34 Dose: 3 units Ipratropium [place] (Atrovent) 0.5 mg IH RQ4 [facility] Last Admin: 09/02/18 10:59 Dose: 0.5 mg Methylprednisolone (Solu-Medrol) 40 mg IVP DAILY [facility] Last Admin: 09/02/18 10:52 Dose: 40 mg Pantoprazole Sodium (Protonix Ec Tab) 40 mg PO DAILY [facility] Last Admin: 09/02/18 10:51 Dose: 40 mg Rosuvastatin Calcium (Crestor) 5 mg PO HS [facility] Last Admin: 09/01/18 21:20 Dose: 5 mg - Labs Labs: 09/02/18 06:48 09/02/18 06:48 PT 10.7 SECONDS (9.7-12.2) 08/24/18 14:32 INR 1.0 08/24/18 14:32 APTT 27 SECONDS (21-34) 08/24/18 14:32
[2018-09-02 16:51] VITALS: BP 156/75; PULSE 98; RESP 20; TEMP 98.6; O2SAT 99
--- NOTE | 2018-09-03 00:39 | PN ---
DATE: 09/02/2018 INFECTIOUS DISEASE FOLLOWUP SUBJECTIVE: ____ texted me this morning that the patient did not agree for the catheter removal. He does not want to be n.p.o. and does not want to go to the OR again, hence I decided to leave him. I cannot do much unless the patient decides. He was awake, alert when I went to see him this afternoon. He denied any pains. He wanted to go home. PHYSICAL EXAMINATION: VITAL SIGNS: T-max is 98.6, pulse 98, blood pressure 156/75, respirations were 20. GENERAL: He continues to have a cough as he has bronchiectasis and pulmonary fibrosis and he says his left arm was getting better and less edematous, less pain. He has a dialysis catheter on the right side. LUNGS: Had occasional crackles on both bases. HEART: S1, S2 are regular. ABDOMEN: Soft, nontender. He had a dressing with peritoneal catheter that has been removed and he said he has very little pain. EXTREMITIES: Have no edema. LABORATORY DATA: Labs are noted. Labs show white count is 9.8, hemoglobin 9.7, hematocrit 29.3, platelet count is 211. Potassium was 3.3, sodium 135, Renal is following that. He is a dialysis patient. ASSESSMENT AND PLAN: So at this time, we decided to continue vancomycin for 2 weeks, he would be getting on his dialysis days. The Resident wrote the prescription. I told him to call the Renal attending and let them know that the patient will be receiving six doses of vancomycin and by then I hope that this fistula is ready and he is able to get dialysis from it. The patient had only one blood culture Staphylococcus epidermidis, but he had two catheters present and one of them has been removed. The other one today we wanted to remove and he did not let us remove it and he is a dialysis patient. He does have pulmonary fibrosis. He came in with gastrointestinal bleeding and he is going to be discharged today. Melissa Gaitan MD
== END 2018-09-02 18:15 | disposition home or self-care (01) | DRG 356 ==
LOC: C.ER 13:28 → C.9E 15:50 → C.6T 16:21
PROVIDERS: ADMIT Hospitalist; ATTEND Hospitalist
PROC: 5A1D70Z Performance of Urinary Filtration, Intermittent, Less than 6 Hours Per Day (ICD-10-PCS; 2018-08-25)
PROC: 0DJD8ZZ Inspection of Lower Intestinal Tract, Via Natural or Artificial Opening Endoscopic (ICD-10-PCS; 2018-08-26)
PROC: 5A1D70Z Performance of Urinary Filtration, Intermittent, Less than 6 Hours Per Day (ICD-10-PCS; 2018-08-27)
PROC: 0TJB8ZZ Inspection of Bladder, Via Natural or Artificial Opening Endoscopic (ICD-10-PCS; principal; 2018-08-29 15:30)
PROC: 5A1D70Z Performance of Urinary Filtration, Intermittent, Less than 6 Hours Per Day (ICD-10-PCS; 2018-08-30)
PROC: 03180ZD Bypass Left Brachial Artery to Upper Arm Vein, Open Approach (ICD-10-PCS; 2018-08-31)
PROC: 0WPGX3Z Removal of Infusion Device from Peritoneal Cavity, External Approach (ICD-10-PCS; 2018-08-31)
PROC: 5A1D70Z Performance of Urinary Filtration, Intermittent, Less than 6 Hours Per Day (ICD-10-PCS; 2018-09-01)
DX: K92.1 Melena (principal); N18.6 End stage renal disease; J18.1 Lobar pneumonia, unspecified organism; N13.8 Other obstructive and reflux uropathy; J44.0 Chronic obstructive pulmonary disease with (acute) lower respiratory infection; J44.1 Chronic obstructive pulmonary disease with (acute) exacerbation; J47.0 Bronchiectasis with acute lower respiratory infection; Z68.1 Body mass index [BMI] 19.9 or less, adult; I12.0 Hypertensive chronic kidney disease with stage 5 chronic kidney disease or end stage renal disease; K57.30 Diverticulosis of large intestine without perforation or abscess without bleeding; N40.1 Benign prostatic hyperplasia with lower urinary tract symptoms; R31.0 Gross hematuria; N20.0 Calculus of kidney; K64.8 Other hemorrhoids; Z87.891 Personal history of nicotine dependence; Z99.2 Dependence on renal dialysis; D64.9 Anemia, unspecified; E11.22 Type 2 diabetes mellitus with diabetic chronic kidney disease; E78.5 Hyperlipidemia, unspecified; F41.9 Anxiety disorder, unspecified; R13.10 Dysphagia, unspecified; J84.10 Pulmonary fibrosis, unspecified

== ENCOUNTER 2018-11-14 16:58 | Inpatient (IN) | payer MEDICARE ==
[2018-11-14 16:58] VITALS: BMI 17.4
[2018-11-14] MEDS ORDERED: Vancomycin 1 gm/NS 200 ml 1 GM/200 ML BAG IVPB STA (17:35)
[2018-11-14] MEDS ORDERED: Piperacillin/Tazobact 3.375 gm 100 ML IVPB STA (17:35)
[2018-11-14] MEDS ORDERED: MethylPREDNISolone 40 mg Vial IVP STA (17:39)
[2018-11-14] MEDS ORDERED: Albuterol-Ipratrop 3 mg / 0.5 (3 ml) UD INH STA ×2 (17:39)
--- NOTE | 2018-11-14 17:46 | C.PDOC ---
History Of Present Illness 83-year-old male, whose past medical history includes ESRD (on hemodialysis M-W-F, with last dialysis done on Wednesday, pulmonary fibrosis, hypertension and hyperlipidemia, presents to the ED for evaluation of fever and abdominal pain which began today. Patient also reports a mild cough. Additional information is limited secondary to patient being a poor historian. Time Seen by Provider: 11/14/18 17:30 Chief Complaint (Nursing): Abdominal Pain History Per: Patient History/Exam Limitations: no limitations Onset/Duration Of Symptoms: Hrs Current Symptoms Are (Timing): Still Present Additional History Per: Patient Past Medical History Reviewed: Historical Data, Nursing Documentation, Vital Signs Vital Signs: Last Vital Signs Temp 100 F H 11/14/18 17:23 Pulse 127 H 11/14/18 17:23 Resp 32 H 11/14/18 17:23 BP 129/59 L 11/14/18 17:23 Pulse Ox 88 L 11/14/18 17:23 Primary Care Provider: Clinic,Med Surg - Medical History PMH: Arthritis, Bronchitis, COPD, HTN, Hyperlipidemia, Pneumonia, End Stage Renal Disease, Chronic Kidney Disease Surgical History: No Surg Hx - [facility] Procedures (08/24/18) BYPASS LEFT BRACHIAL ARTERY TO UPPER ARM VEIN, OPEN APPROACH (08/24/18) EXCISION OF PELVIC SUBCU/FASCIA, OPEN APPROACH (09/06/17) FLUOROSCOPY OF SUP VENA CAVA USING L OSM CONTRAST, GUIDANCE (07/25/18) INSERT OF INFUSION DEV INTO PERITON CAV, PERC ENDO APPROACH (07/25/18) INSERTION OF INFUSION DEV INTO SUP VENA CAVA, PERC APPROACH (07/25/18) INSPECTION OF BLADDER, ENDO (08/24/18) INSPECTION OF LOWER INTESTINAL TRACT, ENDO (08/24/18) IRRIGATION OF PERITON CAV USING DIALYSATE, PERC APPROACH (07/25/18) REMOVAL OF INFUSION DEVICE FROM PERITON CAV, WEDGER MACHINE APPROACH (08/24/18) SUPPLEMENT L INGUINAL REGION WITH SYNTH SUB, OPEN APPROACH (09/06/17) Family History: States: Unknown Family Hx - Social History Hx Alcohol Use: No Hx Substance Use: No - Immunization History Hx Tetanus Toxoid Vaccination: No Hx Influenza Vaccination: Yes Hx Pneumococcal Vaccination: Yes Review Of Systems Constitutional: Positive for: Fever Respiratory: Positive for: Cough Gastrointestinal: Positive for: Abdominal Pain Physical Exam - Physical Exam Appears: Non-toxic, No Acute Distress Skin: Normal Color, Warm, Dry Head: Atraumatic, Normacephalic Eye(s): bilateral: Normal Inspection Oral Mucosa: Moist Neck: Supple Chest: Symmetrical, No Deformity, No Tenderness Cardiovascular: Rhythm Regular, No Murmur Respiratory: No Rales, Rhonchi (diffuse, bilaterally ), No Wheezing Gastrointestinal/Abdominal: Soft, Tenderness (nonfocal ), No Guarding, No Rebound Extremity: Normal ROM, Capillary Refill (less than 2 seconds ) Neurological/Psych: Oriented x3, Normal Speech, Normal Cognition ED Course And Treatment - Laboratory Results Result Diagrams: 11/14/18 17:52 11/14/18 17:52 ECG: Interpreted By Me, Viewed By Me ECG Rhythm: Sinus Tachycardia Interpretation Of ECG: Sinus Tachycardia at rate 121bpm. Left ventricular hypertrophy. Rate From EC O2 Sat by Pulse Oximetry: 88 Medical Decision Making Medical Decision Making: febirl in er. empirc antibiotics iniatted la neg. nebs steriods igven. abd pelvis ct neg for acute pahtology. hemodynamiclaly stable for tele. case dicsused jayjay smalls. plan to hd in am Disposition - Disposition Disposition: HOSPITALIZED Disposition Time: 19:35 Condition: FAIR Forms: [employer] (Greenlandic) - Clinical Impression Clinical Impression: ESRD needing dialysis, COPD (chronic obstructive pulmonary disease), Pneumonia - Scribe Statement The provider has reviewed the documentation as recorded by the Scribe (Jaky Carrillo) Provider Attestation: All medical record entries made by the Scribe were at my direction and personally dictated by me. I have reviewed the chart and agree that the record accurately reflects my personal performance of the history, physical exam, medical decision making, and the department course for this patient. I have also personally directed, reviewed, and agree with the discharge instructions and disposition. Decision To Admit - Pt Status Changed To: Hospital Disposition Of: Inpatient - Admit Certification Admit to Inpatient:: After my assessment, the patient will require hospitalization for at least two midnights. This is because of the severity of symptoms shown, intensity of services needed, and/or the medical risk in this patient being treated as an outpatient. - InPatient: Physician Admission Certification: I certify that this patient requires 2 or more midnights of care for the following reason:: needs iv antibiotics - . Bed Request Type: Telemetry Admitting Physician: Jennie Vazquez Patient Diagnosis: ESRD needing dialysis, COPD (chronic obstructive pulmonary disease), Pneumonia
[2018-11-14 17:56] LABS: BASO # 0.1 K/uL (0.0-0.2); BASO % 0.7 % (0.0-2.0); EOS % 0.1 % (0.0-4.0); LYMPH # 0.3 K/uL (1.0-4.3); MEAN CORPUSCULAR HEMOGLOBIN 31.8 pg (27.0-31.0); MEAN CORPUSCULAR HGB CONC 32.1 g/dL (33.0-37.0); MEAN PLATELET VOLUME 6.8 fL (7.2-11.7); MONO # 0.7 K/uL (0.0-0.8); MONO % 5.1 % (0.0-10.0); NEUT # 12.1 K/uL (1.8-7.0); NEUT % 92.1 % (50.0-75.0); PLATELET COUNT 298 K/uL (130-400); RBC 3.45 Mil/uL (4.40-5.90); RED CELL DISTRIBUTION WIDTH 17.1 % (11.5-14.5); WHITE BLOOD COUNT 13.1 K/uL (4.8-10.8)
[2018-11-14] MEDS ORDERED: Piperacillin/Tazobact 3.375 gm 100 ML IVPB ONE (17:59)
[2018-11-14 18:05] LABS: INR 1.2; PARTIAL THROMBOPLASTIN TIME 33.5 SECONDS (21-34); PROTHROMBIN TIME 12.6 SECONDS (9.7-12.2)
[2018-11-14 18:08] LABS: VENOUS BLOOD GAS BASE EXCESS -1.5 mmol/L (0.0-2.0); VENOUS BLOOD GAS PCO2 41 mmHg (40-60); VENOUS BLOOD GAS PO2 32 mm/Hg (30-55); VENOUS BLOOD PH 7.37 (7.32-7.43)
[2018-11-14 18:08] LABS: MEAN CELL VOLUME 99.3 fL (80.0-94.0)
[2018-11-14 18:15] LABS: ALBUMIN 3.7 g/dL (3.5-5.0); CALCIUM 9.5 mg/dl (8.6-10.4)
[2018-11-14 18:21] LABS: TROPONIN I 0.022 ng/mL (0.00-0.120)
[2018-11-14] MEDS ORDERED: Albuterol-Ipratrop 3 mg / 0.5 (3 ml) UD ONE (18:48)
--- NOTE | 2018-11-14 18:52 | CT ---
Date of service: 11/14/2018 PROCEDURE: CT Abdomen and Pelvis without intravenous contrast HISTORY: b/l flank pain/fever h/o of nephrolithiasis COMPARISON: Comparison is made to the previous study dated 08/24/2018 TECHNIQUE: Axial and reformatted coronal and sagittal CT images of the abdomen and pelvis were obtained without IV or oral contrast administration.. Contrast dose: 0 Radiation dose: Total exam DLP = 263.33 mGy-cm. This CT exam was performed using one or more of the following dose reduction techniques: Automated exposure control, adjustment of the mA and/or kV according to patient size, and/or use of iterative reconstruction technique. FINDINGS: LOWER THORAX: There is a moderate to large size airspace consolidation at the right middle and right lower lobe associated with scattered nodular opacities. Again noted are foci of moderate to severe bronchiectasis in the right middle lobe and in the lingula. Mild bronchiectasis is also noted in the right lower lobe. Airspace consolidation at the left lung base is also noted. The possibility of multifocal pneumonia or aspiration should be considered. Given the bronchiectasis in the middle lobe and in the lingula and the presents of tree-in-bud and nodular opacities especially in the middle lobe and right lower lobe , the possibility of MAC infection should be excluded. LIVER: Again noted is low-attenuation lesion at the central portion of the right liver lobe measures 1.2 centimeter. GALLBLADDER AND BILE DUCTS: Gallstone is again noted without evidence of acute cholecystitis PANCREAS: Unremarkable. No gross lesion or ductal dilatation. SPLEEN: Unremarkable. ADRENALS: Unremarkable. No mass. KIDNEYS AND URETERS: Again noted is 3 millimeter nonobstructing calculus at the lower pole of the right kidney. There also 2 millimeter nonobstructing calculus at the lower pole of the left kidney. No evidence of hydronephrosis or hydroureter. VASCULATURE: Diffuse atherosclerotic calcification is again noted. No evidence of abdominal aorta aneurysm. BOWEL: Diffuse colonic diverticulosis in the large bowel are noted without evidence of diverticulitis. No evidence of high-grade bowel obstruction. APPENDIX: No evidence of appendicitis. PERITONEUM: Unremarkable. No free fluid. No free air. LYMPH NODES: Unremarkable. No enlarged lymph nodes. BLADDER: Unremarkable. REPRODUCTIVE: Unremarkable. BONES: No evidence of acute pathology. Again noted is fusion of L2 and L3. OTHER FINDINGS: None. IMPRESSION: Interval worsening of airspace consolidation in the right middle and right lower lobe since the previous exam. The possibility of pneumonia or aspiration should be considered. Airspace consolidation at the left lower lobe is also noted. Small bilateral nonobstructing renal calculi. No evidence of hydronephrosis. Gallstones without evidence of acute cholecystitis. No significant interval change in the abdomen and pelvis noted since the previous exam.
[2018-11-14 19:43] LABS: BANDS 9 % (0-2); LYMPHOCYTE 5 % (20-40); MONOCYTE 3 % (0-10); NEUTROPHIL 83 % (50-75); TOTAL CELLS COUNTED 100
[2018-11-14 19:44] LABS: ANISOCYTOSIS SLIGHT
[2018-11-14 19:45] LABS: HYPOCHROMIC SLIGHT; PLATELET ESTIMATE NORMAL (NORMAL)
[2018-11-14] MEDS ORDERED: Vancomycin 1 gm/NS 200 ml 1 GM/200 ML BAG IVPB SCH (20:30)
[2018-11-14] MEDS ORDERED: Dextrose 50% SYRINGE Inj (50 ml) IV PRN (20:36)
[2018-11-14] MEDS ORDERED: Glucagon Recombinant 1 mg Inj IM PRN (20:36)
--- NOTE | 2018-11-14 20:42 | CP.PCM.HP ---
<Lopez Hightower - Last Filed: 11/14/18 21:31> History of Present Illness - History of Present Illness History of Present Illness: HPI 83M past medical history of HTN, HLD, DM, ESRD on HD (MWF), COPD, and chronic anemia presenting to ED for one week of shortness of breath. Last night he reported fevers, chills and sweating, took tylenol but then the fevers did not resolve this AM, prompting him to come in. Pt says he's had a dry cough associated with this recent illness. Patient says hes been feeling worse over the past week. Denies taking any antibiotics or seeking medical attention for this current illness. As per daughter, Pt has been more fatigued than usual and has been exceptionally lethargic after HD sessions. His last HD session was Wednesday. Last follow up appt was with Dr Dutton about 2 weeks ago. ROS Pos+ SOB, Fevers, Chills, missed dialysis today, Cough Neg- headaches, chest pain, palpitations, vomiting, diarrhea, blood in urine/sputum/stool, med changes. med non compliance. PMHx: HTN, HLD, DM, ESRD on HD (TTS), COPD, anemia PSHx: R inguinal hernia repair x2 Allergies: ASA--"stomach hurts" Social Hx: 30ppy, quit at age 42, No alcohol or illicit drug use Family Hx: noncontributory PCP: Nakul Miranda [employer] Pulmonary: Dr. Chevy Cruz , Dr Post (in house) Nephro: Dr. Dutton Heme: Dr. Lobato Present on Admission - Present on Admission Any Indicators Present on Admission: No Review of Systems - Review of Systems All systems: reviewed and no additional remarkable complaints except (as per HPI) Past Patient History - Infectious Disease Hx of Infectious Diseases: None - Past Medical History & Family History Past Medical History?: Yes - Past Social History Smoking Status: Former Smoker - CARDIAC Hx Hypertension: Yes - PULMONARY Hx Bronchitis: Yes Hx Chronic Obstructive Pulmonary Disease (COPD): Yes Hx Pneumonia: Yes - NEUROLOGICAL Hx Neurological Disorder: No - HEENT Hx HEENT Problems: No Other/Comment: wears glasses - RENAL Hx Chronic Kidney Disease: Yes - ENDOCRINE/METABOLIC Hx Endocrine Disorders: Yes Hx Diabetes Mellitus Type 2: Yes - HEMATOLOGICAL/ONCOLOGICAL Hx Blood Disorders: Yes Hx Blood Transfusions: Yes - INTEGUMENTARY Hx Dermatological Problems: No - MUSCULOSKELETAL/RHEUMATOLOGICAL Hx Arthritis: Yes - GASTROINTESTINAL Hx Gastrointestinal Disorders: Yes Other/Comment: HERNIA - GENITOURINARY/GYNECOLOGICAL Hx Genitourinary Disorders: No - PSYCHIATRIC Hx Substance Use: No - SURGICAL HISTORY Hx Surgeries: Yes Hx Herniorrhaphy: Yes (RIGHT INGUINAL) - ANESTHESIA Hx Anesthesia: Yes Hx Anesthesia Reactions: No Hx Malignant Hyperthermia: No Meds Allergies/Adverse Reactions: Allergies Allergy/AdvReac Type Severity Reaction Status Date / Time aspirin Allergy Severe PAIN Verified 08/24/18 13:31 Physical Exam - Constitutional Appears: Non-toxic, No Acute Distress, Chronically Ill - Head Exam Head Exam: ATRAUMATIC, NORMAL INSPECTION - Eye Exam Eye Exam: EOMI. absent: Periorbital swelling, Scleral icterus Pupil Exam: NORMAL ACCOMODATION, PERRL - ENT Exam ENT Exam: Mucous Membranes Moist, Normal Exam - Neck Exam Neck exam: Negative for: Lymphadenopathy, Tenderness, Thyromegaly - Respiratory Exam Respiratory Exam: Rales (lower jackson bilaterally), Wheezes. absent: Respiratory Distress - Cardiovascular Exam Cardiovascular Exam: Tachycardia, +S1, +S2 - GI/Abdominal Exam GI & Abdominal Exam: Soft. absent: Distended, Tenderness - Extremities Exam Extremities exam: Positive for: normal capillary refill, pedal pulses present Additional comments: palpable thrill palpable L radial artery - Neurological Exam Neurological exam: Alert, CN II-XII Intact, Oriented x3 - Psychiatric Exam Psychiatric exam: Normal Affect, Normal Mood - Skin Skin Exam: Dry, Normal Color, Warm Results - Vital Signs Recent Vital Signs: Last Vital Signs Temp 100 F H 11/14/18 17:23 Pulse 127 H 11/14/18 17:23 Resp 32 H 11/14/18 17:23 BP 129/59 L 11/14/18 17:23 Pulse Ox 88 L 11/14/18 19:35 - Labs Result Diagrams: 11/14/18 17:52 11/14/18 17:52 Labs: Laboratory Results - last 24 hr 11/14/18 11/14/18 11/14/18 17:52 17:52 17:52 WBC 13.1 H RBC 3.45 L Hgb 11.0 L Hct 34.3 L MCV 99.3 H D MCH 31.8 H MCHC 32.1 L RDW 17.1 H Plt Count 298 MPV 6.8 L Neut % (Auto) 92.1 H Lymph % (Auto) 2.0 L [place] % (Auto) 5.1 Eos % (Auto) 0.1 Baso % (Auto) 0.7 Neut # (Auto) 12.1 H Lymph # (Auto) 0.3 L [place] # (Auto) 0.7 Eos # (Auto) 0.0 Baso # (Auto) 0.1 Neutrophils % (Manual) 83 H Band Neutrophils % 9 H Lymphocytes % (Manual) 5 L Monocytes % (Manual) 3 Platelet Estimate Normal Hypochromasia (manual) Slight Anisocytosis (manual) Slight PT 12.6 H INR 1.2 APTT 33.5 pO2 VBG pH VBG pCO2 VBG HCO3 VBG Total CO2 VBG O2 Sat (Calc) VBG Base Excess VBG Potassium Glucose Lactate Sodium 137 Potassium 5.2 Chloride 101 Carbon Dioxide 23 Anion Gap 18 BUN 59 H Creatinine 5.3 H Est GFR ( Amer) 13 Est GFR (Non-Af Amer) 10 Random Glucose 45 L D Calcium 9.5 Total Bilirubin 0.9 AST 21 ALT 7 L D Alkaline Phosphatase 76 Troponin I 0.0220 Total Protein 7.4 Albumin 3.7 Globulin 3.7 Albumin/Globulin Ratio 1.0 Lipase 52 Venous Blood Potassium 11/14/18 18:03 WBC RBC Hgb Hct MCV MCH MCHC RDW Plt Count MPV Neut % (Auto) Lymph % (Auto) [place] % (Auto) Eos % (Auto) Baso % (Auto) Neut # (Auto) Lymph # (Auto) [place] # (Auto) Eos # (Auto) Baso # (Auto) Neutrophils % (Manual) Band Neutrophils % Lymphocytes % (Manual) Monocytes % (Manual) Platelet Estimate Hypochromasia (manual) Anisocytosis (manual) PT INR APTT pO2 32 VBG pH 7.37 VBG pCO2 41 VBG HCO3 22.7 VBG Total CO2 25.0 VBG O2 Sat (Calc) 54.9 VBG Base Excess -1.5 L VBG Potassium 4.7 Glucose 43 L Lactate 0.8 Sodium 139.0 Potassium Chloride 107.0 Carbon Dioxide Anion Gap BUN Creatinine Est GFR ( Amer) Est GFR (Non-Af Amer) Random Glucose Calcium Total Bilirubin AST ALT Alkaline Phosphatase Troponin I Total Protein Albumin Globulin Albumin/Globulin Ratio Lipase Venous Blood Potassium 4.7 Assessment & Plan - Assessment and Plan (Free Text) Assessment: 82 year old male with past medical history of HTN, HLD, DM, ESRD on HD TTS, COPD, and chronic anemia presenting to ED for SOB, fevers and chills Plan: SIRS -Vanco 1g q12 IVPB -Zosy 2.25 q6 IVPB -f/u blood/sputum cultures -Pulmonology Dr Post consulted ESRD on HD (TTS) -Nephrology (Dr. Dutton) consulted -calcitriol 0.25 mcg PO daily -folic acid 1 mg PO daily -Procrit Hx of COPD Pulmonary Fibrosis -Brovana -Pulmicort -duonebs q4 new -solumedrol 40 BID ivp -Pulmonology Dr Post consulted DM -Amaryl -ISS low -accuchecks achs -hypoglycemic protocol Hx HTN -Norvasc 5 mg PO daily Hx of HLD -Crestor 5 mg PO HS NEW Hx Anemia of chronic disease -2/2 underlying renal failure -[place] H&H PPx -heparin 5000 q8 -SCDs -Diabetic Renal HHD CK PGY1 d/w Dr Vazquez <Jennie Vazquez N - Last Filed: 11/15/18 23:29> Results - Vital Signs Recent Vital Signs: Last Vital Signs Temp 97.9 F 11/15/18 15:44 Pulse 86 11/15/18 16:30 Resp 20 11/15/18 15:44 BP 113/60 11/15/18 15:44 Pulse Ox 98 11/15/18 15:44 - Labs Result Diagrams: 11/15/18 06:46 11/15/18 06:46 Labs: Laboratory Results - last 24 hr 11/15/18 11/15/18 11/15/18 06:20 06:46 06:46 WBC 7.2 RBC 3.31 L Hgb 11.1 L Hct 33.3 L MCV 100.5 H MCH 33.5 H MCHC 33.4 RDW 16.9 H Plt Count 262 MPV 7.4 Neut % (Auto) 96.3 H Lymph % (Auto) 1.9 L Frontier % (Auto) 1.7 Eos % (Auto) 0.0 Baso % (Auto) 0.1 Neut # (Auto) 6.9 Lymph # (Auto) 0.1 L [place] # (Auto) 0.1 Eos # (Auto) 0.0 Baso # (Auto) 0.0 Neutrophils % (Manual) 82 H Lymphocytes % (Manual) 12 L Monocytes % (Manual) 3 Metamyelocytes % 1 H Myelocytes % 2 H Nucleated RBC % 61 H Platelet Estimate Normal Large Platelets Present Giant Platelets Present Hypochromasia (manual) Moderate Poikilocytosis (manual Slight Anisocytosis (manual) Slight Target Cells Slight Tear Drop Cells Slight Acanthocytes (Spur) Slight Sodium 135 Potassium 4.9 Chloride 101 Carbon Dioxide 21 L Anion Gap 17 BUN 63 H Creatinine 5.6 H Est GFR ( Amer) 12 Est GFR (Non-Af Amer) 10 POC Glucose (mg/dL) 440 H* Random Glucose 447 H* D Hemoglobin A1c Calcium 9.1 Total Bilirubin 0.6 AST 23 ALT 10 L D Alkaline Phosphatase 73 Total Protein 6.7 Albumin 3.4 L Globulin 3.3 Albumin/Globulin Ratio 1.0 Urine Color Urine Clarity Urine pH Ur Specific [place] Urine Protein Urine Glucose (UA) Urine Ketones Urine Blood Urine Nitrate Urine Bilirubin Urine Urobilinogen Ur Leukocyte Esterase Urine WBC (Auto) Urine RBC (Auto) Ur Squamous Epith Cells Random Vancomycin Blood Type Antibody Screen 11/15/18 11/15/18 11/15/18 06:46 09:32 09:34 WBC RBC Hgb Hct MCV MCH MCHC RDW Plt Count MPV Neut % (Auto) Lymph % (Auto) [place] % (Auto) Eos % (Auto) Baso % (Auto) Neut # (Auto) Lymph # (Auto) [place] # (Auto) Eos # (Auto) Baso # (Auto) Neutrophils % (Manual) Lymphocytes % (Manual) Monocytes % (Manual) Metamyelocytes % Myelocytes % Nucleated RBC % Platelet Estimate Large Platelets Giant Platelets Hypochromasia (manual) Poikilocytosis (manual Anisocytosis (manual) Target Cells Tear Drop Cells Acanthocytes (Spur) Sodium Potassium Chloride Carbon Dioxide Anion Gap BUN Creatinine Est GFR ( Amer) Est GFR (Non-Af Amer) POC Glucose (mg/dL) Random Glucose Hemoglobin A1c 6.2 Calcium Total Bilirubin AST ALT Alkaline Phosphatase Total Protein Albumin Globulin Albumin/Globulin Ratio Urine Color Urine Clarity Urine pH Ur Specific [place] Urine Protein Urine Glucose (UA) Urine Ketones Urine Blood Urine Nitrate Urine Bilirubin Urine Urobilinogen Ur Leukocyte Esterase Urine WBC (Auto) Urine RBC (Auto) Ur Squamous Epith Cells Random Vancomycin 11.2 Blood Type O POSITIVE Antibody Screen Negative 11/15/18 11/15/18 11/15/18 12:01 13:41 15:59 WBC RBC Hgb Hct MCV MCH MCHC RDW Plt Count MPV Neut % (Auto) Lymph % (Auto) Frontier % (Auto) Eos % (Auto) Baso % (Auto) Neut # (Auto) Lymph # (Auto) [place] # (Auto) Eos # (Auto) Baso # (Auto) Neutrophils % (Manual) Lymphocytes % (Manual) Monocytes % (Manual) Metamyelocytes % Myelocytes % Nucleated RBC % Platelet Estimate Large Platelets Giant Platelets Hypochromasia (manual) Poikilocytosis (manual Anisocytosis (manual) Target Cells Tear Drop Cells Acanthocytes (Spur) Sodium Potassium Chloride Carbon Dioxide Anion Gap BUN Creatinine Est GFR ( Amer) Est GFR (Non-Af Amer) POC Glucose (mg/dL) 221 H 222 H Random Glucose Hemoglobin A1c Calcium Total Bilirubin AST ALT Alkaline Phosphatase Total Protein Albumin Globulin Albumin/Globulin Ratio Urine Color Yellow Urine Clarity Clear Urine pH 6.0 Ur Specific [place] 1.016 Urine Protein 3+ H Urine Glucose (UA) 3+ H Urine Ketones Negative Urine Blood Negative Urine Nitrate Negative Urine Bilirubin Negative Urine Urobilinogen Normal Ur Leukocyte Esterase Neg Urine WBC (Auto) 1 Urine RBC (Auto) 1 Ur Squamous Epith Cells < 1 Random Vancomycin Blood Type Antibody Screen 11/15/18 21:08 WBC RBC Hgb Hct MCV MCH MCHC RDW Plt Count MPV Neut % (Auto) Lymph % (Auto) [place] % (Auto) Eos % (Auto) Baso % (Auto) Neut # (Auto) Lymph # (Auto) [place] # (Auto) Eos # (Auto) Baso # (Auto) Neutrophils % (Manual) Lymphocytes % (Manual) Monocytes % (Manual) Metamyelocytes % Myelocytes % Nucleated RBC % Platelet Estimate Large Platelets Giant Platelets Hypochromasia (manual) Poikilocytosis (manual Anisocytosis (manual) Target Cells Tear Drop Cells Acanthocytes (Spur) Sodium Potassium Chloride Carbon Dioxide Anion Gap BUN Creatinine Est GFR ( Amer) Est GFR (Non-Af Amer) POC Glucose (mg/dL) 220 H Random Glucose Hemoglobin A1c Calcium Total Bilirubin AST ALT Alkaline Phosphatase Total Protein Albumin Globulin Albumin/Globulin Ratio Urine Color Urine Clarity Urine pH Ur Specific [place] Urine Protein Urine Glucose (UA) Urine Ketones Urine Blood Urine Nitrate Urine Bilirubin Urine Urobilinogen Ur Leukocyte Esterase Urine WBC (Auto) Urine RBC (Auto) Ur Squamous Epith Cells Random Vancomycin Blood Type Antibody Screen Attending/Attestation - Attestation I have fully participated in the care of the patient.: Yes I have reviewed all pertinent clinical information: Yes Notes (Text): 11/15/18 23:28 pt was seen and managed with resident.
[2018-11-14] MEDS: (Novolin R) Insulin Human Regular 100 units/ml vial SC SCH (22:51)
[2018-11-15] MEDS: Piperacill/Tazo 2.25gm in Dex 2.25 GM/50 ML BAG IVPB SCH ×4 (00:22→22:12)
[2018-11-15] MEDS ORDERED: Sodium Chloride 0.9% 1,000 ML IV SCH ×2 (00:45→05:15)
[2018-11-15] MEDS: Albuterol-Ipratrop 3 mg / 0.5 (3 ml) UD INH SCH ×7 (00:59→23:55)
[2018-11-15 06:52] LABS: BASO % 0.1 % (0.0-2.0); HEMOGLOBIN 11.1 g/dL (12.0-18.0); LYMPH # 0.1 K/uL (1.0-4.3); LYMPH % 1.9 % (20.0-40.0); MEAN CELL VOLUME 100.5 fL (80.0-94.0); MEAN CORPUSCULAR HEMOGLOBIN 33.5 pg (27.0-31.0); MEAN CORPUSCULAR HGB CONC 33.4 g/dL (33.0-37.0); MEAN PLATELET VOLUME 7.4 fL (7.2-11.7); MONO # 0.1 K/uL (0.0-0.8); MONO % 1.7 % (0.0-10.0); NEUT # 6.9 K/uL (1.8-7.0); NEUT % 96.3 % (50.0-75.0); NRBC % 0.1 % (0.0-2.0); PLATELET COUNT 262 K/uL (130-400); RBC 3.31 Mil/uL (4.40-5.90); RED CELL DISTRIBUTION WIDTH 16.9 % (11.5-14.5); WHITE BLOOD COUNT 7.2 K/uL (4.8-10.8)
[2018-11-15] MEDS ORDERED: Fluticasone-Vilanterol 100/25mcg Diskus INH SCH (08:00)
[2018-11-15] MEDS ORDERED: Budesonide 0.5 mg/2 ml Inhal Susp UD INH SCH (08:00)
[2018-11-15 08:02] LABS: LYMPHOCYTE 12 % (20-40); METAMYELOCYTE 1 % (0-0); MONOCYTE 3 % (0-10); MYELOCYTE 2 % (0-0); NEUTROPHIL 82 % (50-75); NUCLEATED RED BLOOD CELL 61 % (0-0); TOTAL CELLS COUNTED 100
[2018-11-15 08:03] LABS: ANISOCYTOSIS SLIGHT; PLATELET ESTIMATE NORMAL (NORMAL); POIKILOCYTOSIS SLIGHT
[2018-11-15 08:04] LABS: HYPOCHROMIC MODERATE; TARGET CELLS SLIGHT; TEARDROP CELLS SLIGHT
[2018-11-15 08:06] LABS: GIANT PLATELETS PRESENT; LARGE PLATELETS PRESENT
[2018-11-15] MEDS: (Novolin R) Insulin Human Regular 100 units/ml vial SC SCH ×4 (08:08→21:22)
[2018-11-15 08:09] LABS: ALBUMIN 3.4 g/dL (3.5-5.0); CALCIUM 9.1 mg/dl (8.6-10.4)
[2018-11-15] MEDS ORDERED: Epoetin Alfa 10,000 unit/ml Dialysis IV SCH (10:00)
[2018-11-15] MEDS ORDERED: Piperacill/Tazo 2.25gm in Dex 2.25 GM/50 ML BAG IVPB SCH (10:00)
[2018-11-15] MEDS: Arformoterol 15 mcg/2 ml Inh Sol INH SCH ×2 (10:25→22:13)
--- NOTE | 2018-11-15 10:39 | RAD ---
Date of service: 11/14/2018 HISTORY: chest pain COMPARISON: 08/24/2018 TECHNIQUE: 1 view obtained. FINDINGS: LUNGS: Patchy consolidative opacification at the bilateral lung bases. Bilateral hilar prominence. Diffuse increased interstitial lung markings with scattered nodularity. Upper lobe granulomatous changes. Right central venous catheter with tip extending into the right atrium. PLEURA: Small right pleural effusion. CARDIOVASCULAR: Enlarged ectatic aorta with atherosclerotic calcification and plaque. Normal cardiac size. No pulmonary vascular congestion. OSSEOUS STRUCTURES: Degenerative changes in the spine. VISUALIZED UPPER ABDOMEN: Normal. OTHER FINDINGS: None. IMPRESSION: Worsening bibasilar consolidation and effusions. Post treatment interval follow-up is recommended to ensure resolution and exclude underlying lesion.
[2018-11-15] MEDS: MethylPREDNISolone 40 mg Vial IVP SCH ×2 (11:00→17:41)
--- NOTE | 2018-11-15 11:09 | CP.PCM.CON ---
History of Present Illness - History of Present Illness History of Present Illness: patient seen and examined consult dictated esrd presently with chills fever abd pain ct pneumonia schedule dialysis today with ultragfiltration await further pulm and ID evaluation Past Patient History - Infectious Disease Hx of Infectious Diseases: None - Past Medical History & Family History Past Medical History?: Yes - Past Social History Smoking Status: Never Smoked - CARDIAC Hx Hypertension: Yes - PULMONARY Hx Bronchitis: Yes Hx Chronic Obstructive Pulmonary Disease (COPD): Yes Hx Pneumonia: Yes - NEUROLOGICAL Hx Neurological Disorder: No - HEENT Hx HEENT Problems: No Other/Comment: wears glasses - RENAL Hx Chronic Kidney Disease: Yes Hx Dialysis: Yes Type of Dialysis Access: R SC cath Date of Last Dialysis Treatment: 11/11/18 - ENDOCRINE/METABOLIC Hx Endocrine Disorders: Yes Hx Diabetes Mellitus Type 2: Yes - HEMATOLOGICAL/ONCOLOGICAL Hx Blood Disorders: Yes Hx Blood Transfusions: Yes - INTEGUMENTARY Hx Dermatological Problems: No - MUSCULOSKELETAL/RHEUMATOLOGICAL Hx Arthritis: Yes Hx Falls: No - GASTROINTESTINAL Hx Gastrointestinal Disorders: Yes Other/Comment: HERNIA - GENITOURINARY/GYNECOLOGICAL Hx Genitourinary Disorders: No - PSYCHIATRIC Hx Substance Use: No - SURGICAL HISTORY Hx Surgeries: Yes Hx Herniorrhaphy: Yes (RIGHT INGUINAL) - ANESTHESIA Hx Anesthesia: Yes Hx Anesthesia Reactions: No Hx Malignant Hyperthermia: No Meds Allergies/Adverse Reactions: Allergies Allergy/AdvReac Type Severity Reaction Status Date / Time aspirin Allergy Severe PAIN Verified 08/24/18 13:31 - Medications Medications: Current Medications Acetaminophen (Tylenol 325mg Tab) 650 mg PO Q6 PRN PRN Reason: Fever >100.4 F Albuterol/Ipratropium (Duoneb 3 Mg/0.5 Mg (3 Ml) Ud) 3 ml INH RQ4 [facility] Last Admin: 11/15/18 07:47 Dose: 3 ml Amlodipine Besylate (Norvasc) 5 mg PO DAILY [facility] Arformoterol Tartrate (Brovana) 15 mcg INH RQ12@1000,2200 [facility] Budesonide (Pulmicort Respules) 0.5 mg INH RQ12 [facility] Last Admin: 11/15/18 07:47 Dose: 0.5 mg Calcitriol (Rocaltrol) 0.25 mcg PO DAILY [facility] Dextrose (Dextrose 50% Inj) 0 ml IV STAT PRN; Protocol PRN Reason: Hypoglycemia Protocol Dextrose (Glutose 15) 0 gm PO ONCE PRN; Protocol PRN Reason: Hypoglycemia Protocol Epoetin Justino (Procrit) 10,000 unit IV TTS [facility] Famotidine (Pepcid) 20 mg PO DAILY PRN PRN Reason: Heartburn Finasteride (Proscar) 5 mg PO DAILY [facility] Folic Acid (Folic Acid) 1 mg PO DAILY [facility] Glimepiride (Amaryl) 1 mg PO ACB [facility] Glucagon (Glucagen Diagnostic Kit) 0 mg IM STAT PRN; Protocol PRN Reason: Hypoglycemia Protocol Heparin Sodium (Porcine) (Heparin) 5,000 units SC Q8 [facility] Last Admin: 11/15/18 06:19 Dose: 5,000 units Dextrose (Dextrose 5% In Water 1000 Ml) 1,000 mls @ 0 mls/hr IV .Q0M PRN; Protocol PRN Reason: Hypoglycemia Protocol Piperacillin Sod/Tazobactam Sod (Zosyn 2.25 Gm Iv Premix) 2.25 gm in 50 mls @ 100 mls/hr IVPB Q8H [facility]; Protocol Insulin Human Regular (Novolin R) 0 unit SC ACHS [facility]; Protocol Last Admin: 11/15/18 08:08 Dose: 6 units Methylprednisolone (Solu-Medrol) 40 mg IVP BID [facility] Rosuvastatin Calcium (Crestor) 5 mg PO HS [facility] Last Admin: 11/14/18 22:51 Dose: Not Given Results - Vital Signs Recent Vital Signs: Last Vital Signs Temp 97.6 F 11/15/18 09:10 Pulse 95 H 11/15/18 10:02 Resp 22 11/15/18 10:02 BP 115/53 L 11/15/18 10:40 Pulse Ox 100 11/15/18 09:10 - Labs Result Diagrams: 11/15/18 06:46 11/15/18 06:46 Labs: Laboratory Results - last 24 hr 11/14/18 11/14/18 11/14/18 17:52 17:52 17:52 WBC 13.1 H RBC 3.45 L Hgb 11.0 L Hct 34.3 L MCV 99.3 H D MCH 31.8 H MCHC 32.1 L RDW 17.1 H Plt Count 298 MPV 6.8 L Neut % (Auto) 92.1 H Lymph % (Auto) 2.0 L [place] % (Auto) 5.1 Eos % (Auto) 0.1 Baso % (Auto) 0.7 Neut # (Auto) 12.1 H Lymph # (Auto) 0.3 L [place] # (Auto) 0.7 Eos # (Auto) 0.0 Baso # (Auto) 0.1 Neutrophils % (Manual) 83 H Band Neutrophils % 9 H Lymphocytes % (Manual) 5 L Monocytes % (Manual) 3 Metamyelocytes % Myelocytes % Nucleated RBC % Platelet Estimate Normal Large Platelets Giant Platelets Hypochromasia (manual) Slight Poikilocytosis (manual Anisocytosis (manual) Slight Target Cells Tear Drop Cells Acanthocytes (Spur) PT 12.6 H INR 1.2 APTT 33.5 pO2 VBG pH VBG pCO2 VBG HCO3 VBG Total CO2 VBG O2 Sat (Calc) VBG Base Excess VBG Potassium Glucose Lactate Sodium 137 Potassium 5.2 Chloride 101 Carbon Dioxide 23 Anion Gap 18 BUN 59 H Creatinine 5.3 H Est GFR ( Amer) 13 Est GFR (Non-Af Amer) 10 POC Glucose (mg/dL) Random Glucose 45 L D Hemoglobin A1c Calcium 9.5 Total Bilirubin 0.9 AST 21 ALT 7 L D Alkaline Phosphatase 76 Troponin I 0.0220 Total Protein 7.4 Albumin 3.7 Globulin 3.7 Albumin/Globulin Ratio 1.0 Lipase 52 Venous Blood Potassium Random Vancomycin Blood Type Antibody Screen 11/14/18 11/14/18 11/14/18 18:03 19:36 19:38 WBC RBC Hgb Hct MCV MCH MCHC RDW Plt Count MPV Neut % (Auto) Lymph % (Auto) [place] % (Auto) Eos % (Auto) Baso % (Auto) Neut # (Auto) Lymph # (Auto) [place] # (Auto) Eos # (Auto) Baso # (Auto) Neutrophils % (Manual) Band Neutrophils % Lymphocytes % (Manual) Monocytes % (Manual) Metamyelocytes % Myelocytes % Nucleated RBC % Platelet Estimate Large Platelets Giant Platelets Hypochromasia (manual) Poikilocytosis (manual Anisocytosis (manual) Target Cells Tear Drop Cells Acanthocytes (Spur) PT INR APTT pO2 32 VBG pH 7.37 VBG pCO2 41 VBG HCO3 22.7 VBG Total CO2 25.0 VBG O2 Sat (Calc) 54.9 VBG Base Excess -1.5 L VBG Potassium 4.7 Glucose 43 L Lactate 0.8 Sodium 139.0 Potassium Chloride 107.0 Carbon Dioxide Anion Gap BUN Creatinine Est GFR ( Amer) Est GFR (Non-Af Amer) POC Glucose (mg/dL) 53 L 47 L Random Glucose Hemoglobin A1c Calcium Total Bilirubin AST ALT Alkaline Phosphatase Troponin I Total Protein Albumin Globulin Albumin/Globulin Ratio Lipase Venous Blood Potassium 4.7 Random Vancomycin Blood Type Antibody Screen 11/14/18 11/14/18 11/15/18 20:41 21:51 06:46 WBC 7.2 RBC 3.31 L Hgb 11.1 L Hct 33.3 L MCV 100.5 H MCH 33.5 H MCHC 33.4 RDW 16.9 H Plt Count 262 MPV 7.4 Neut % (Auto) 96.3 H Lymph % (Auto) 1.9 L [place] % (Auto) 1.7 Eos % (Auto) 0.0 Baso % (Auto) 0.1 Neut # (Auto) 6.9 Lymph # (Auto) 0.1 L [place] # (Auto) 0.1 Eos # (Auto) 0.0 Baso # (Auto) 0.0 Neutrophils % (Manual) 82 H Band Neutrophils % Lymphocytes % (Manual) 12 L Monocytes % (Manual) 3 Metamyelocytes % 1 H Myelocytes % 2 H Nucleated RBC % 61 H Platelet Estimate Normal Large Platelets Present Giant Platelets Present Hypochromasia (manual) Moderate Poikilocytosis (manual Slight Anisocytosis (manual) Slight Target Cells Slight Tear Drop Cells Slight Acanthocytes (Spur) Slight PT INR APTT pO2 VBG pH VBG pCO2 VBG HCO3 VBG Total CO2 VBG O2 Sat (Calc) VBG Base Excess VBG Potassium Glucose Lactate Sodium Potassium Chloride Carbon Dioxide Anion Gap BUN Creatinine Est GFR ( Amer) Est GFR (Non-Af Amer) POC Glucose (mg/dL) 186 H 311 H Random Glucose Hemoglobin A1c Calcium Total Bilirubin AST ALT Alkaline Phosphatase Troponin I Total Protein Albumin Globulin Albumin/Globulin Ratio Lipase Venous Blood Potassium Random Vancomycin Blood Type Antibody Screen 11/15/18 11/15/18 11/15/18 06:46 06:46 09:32 WBC RBC Hgb Hct MCV MCH MCHC RDW Plt Count MPV Neut % (Auto) Lymph % (Auto) [place] % (Auto) Eos % (Auto) Baso % (Auto) Neut # (Auto) Lymph # (Auto) [place] # (Auto) Eos # (Auto) Baso # (Auto) Neutrophils % (Manual) Band Neutrophils % Lymphocytes % (Manual) Monocytes % (Manual) Metamyelocytes % Myelocytes % Nucleated RBC % Platelet Estimate Large Platelets Giant Platelets Hypochromasia (manual) Poikilocytosis (manual Anisocytosis (manual) Target Cells Tear Drop Cells Acanthocytes (Spur) PT INR APTT pO2 VBG pH VBG pCO2 VBG HCO3 VBG Total CO2 VBG O2 Sat (Calc) VBG Base Excess VBG Potassium Glucose Lactate Sodium 135 Potassium 4.9 Chloride 101 Carbon Dioxide 21 L Anion Gap 17 BUN 63 H Creatinine 5.6 H Est GFR ( Amer) 12 Est GFR (Non-Af Amer) 10 POC Glucose (mg/dL) Random Glucose 447 H* D Hemoglobin A1c 6.2 Calcium 9.1 Total Bilirubin 0.6 AST 23 ALT 10 L D Alkaline Phosphatase 73 Troponin I Total Protein 6.7 Albumin 3.4 L Globulin 3.3 Albumin/Globulin Ratio 1.0 Lipase Venous Blood Potassium Random Vancomycin Blood Type O POSITIVE Antibody Screen Negative 11/15/18 09:34 WBC RBC Hgb Hct MCV MCH MCHC RDW Plt Count MPV Neut % (Auto) Lymph % (Auto) [place] % (Auto) Eos % (Auto) Baso % (Auto) Neut # (Auto) Lymph # (Auto) [place] # (Auto) Eos # (Auto) Baso # (Auto) Neutrophils % (Manual) Band Neutrophils % Lymphocytes % (Manual) Monocytes % (Manual) Metamyelocytes % Myelocytes % Nucleated RBC % Platelet Estimate Large Platelets Giant Platelets Hypochromasia (manual) Poikilocytosis (manual Anisocytosis (manual) Target Cells Tear Drop Cells Acanthocytes (Spur) PT INR APTT pO2 VBG pH VBG pCO2 VBG HCO3 VBG Total CO2 VBG O2 Sat (Calc) VBG Base Excess VBG Potassium Glucose Lactate Sodium Potassium Chloride Carbon Dioxide Anion Gap BUN Creatinine Est GFR ( Amer) Est GFR (Non-Af Amer) POC Glucose (mg/dL) Random Glucose Hemoglobin A1c Calcium Total Bilirubin AST ALT Alkaline Phosphatase Troponin I Total Protein Albumin Globulin Albumin/Globulin Ratio Lipase Venous Blood Potassium Random Vancomycin 11.2 Blood Type Antibody Screen Assessment & Plan (1) ESRD needing dialysis Status: Acute (2) Pneumonia Status: Acute (3) Cardiomyopathy Status: Acute (4) Pulmonary fibrosis Status: Acute
--- NOTE | 2018-11-15 13:45 | CON ---
DATE: 11/15/2018 ATTENDING PHYSICIAN: Dr. Vazquez. HISTORY OF PRESENT ILLNESS: Mr. Crowe is an 83-year-old male who is being seen for management of dialysis-dependent renal failure. Mr. 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 On the day of admission, he came to the emergency room because of abdominal pain, fever and chills. He was subsequently admitted. His initial white count was 12000, hemoglobin 11, hematocrit 34.3, platelet count 298,000, pH of 7.37. Sodium 137, potassium 5.2, chloride 101, CO2 of 18, BUN 59, creatinine 5.3, glucose of 45, calcium 9.5, total bili 0.9, ALT of 21, AST of 7, alk phos of 76. Troponin 0.022, albumin 3.7. Today, his glucose was 447, potassium 4.9, white count 7200. Chest x-ray showed worsening basilar consolidation and effusions. CAT scan of the abdomen showed interval worsening of the airspace consolidation in the right middle and right lower lobe since previous exam and airspace consolidation at the left lower lobe was also noted. He had bilateral small nonobstructing renal calculi. There were gallstones without evidence of acute cholecystitis. PAST HISTORY: See the above, also history of COPD, chronic anemia. He has been admitted to [facility]. ALLERGIES: HE IS ALLERGIC TO ASPIRIN WHICH CAUSES STOMACH BURNING. MEDICATIONS: Include amlodipine, Ellipta, Crestor, glyburide, folic acid, finasteride, Pepcid, calcitriol. FAMILY HISTORY: Negative for renal disease. SOCIAL HISTORY: He is a former smoker. He denies alcohol or drug abuse. REVIEW OF SYSTEMS: There are no further chills. He denies chest pain, cough or hemoptysis. There was no abdominal pain, nausea, vomiting or diarrhea. He continues to make urine with no symptomatology. PHYSICAL EXAMINATION: GENERAL: He was a cachectic male, in no acute distress. VITAL SIGNS: His blood pressure was 115/53. His pulse was 95. Temperature 97.6, highest temperature was 110. NECK: There was no jugular venous tension 80 to 90 degrees. LUNGS: Clear with prolonged inspiration and expiration with coarse sounds. HEART: Rhythm was regular. ABDOMEN: Soft, nontender, not overly distended. There was no presacral edema. EXTREMITIES: He moved all his extremities. A PermCath was noted in the right jugular. IMPRESSION: End-stage renal disease dialysis dependent, diabetic nephropathy, hypertension, pneumonia, chronic obstructive pulmonary disease and fever. RECOMMENDATIONS: To schedule dialysis today with ultrafiltration. Await further Pulmonary and ID evaluation. We will continue to follow with you. Enrico Mccullough MD
[2018-11-15 13:55] LABS: SQUAMOUS EPITHIAL < 1 /hpf (0-5); URINE BILIRUBIN NEGATIVE (NEGATIVE); URINE BLOOD NEGATIVE (NEGATIVE); URINE CLARITY Clear (Clear); URINE COLOR Yellow (YELLOW); URINE GLUCOSE (UA) 3+ mg/dL (Normal); URINE LEUKOCYTE ESTERASE NEG Leu/uL (Negative); URINE PROTEIN 3+ mg/dL (NEGATIVE); URINE UROBILINOGEN NORMAL mg/dL (0.2-1.0)
--- NOTE | 2018-11-15 14:00 | RAD ---
Date of service: 11/15/2018 HISTORY: pna, copd, pulm fibrosis COMPARISON: 11/14/2017 TECHNIQUE: 1 view obtained. FINDINGS: LUNGS: Lung volumes lower limits of normal. Bibasilar patchy coalescent airspace opacities compatible with infiltrates and/or subsegmental atelectatic changes. Possible trace improved patchy aeration at right lung base. Continued follow-up to full resolution advised. PLEURA: No pneumothorax seen. Possible minimal right pleural effusion and/or pleural thickening-less now than before. CARDIOVASCULAR: There is presence of aortic atherosclerotic calcification on x-ray. Heart size within normal limits. Mild-moderate concomitant pulmonary venous congestion Right dialysis catheter inserted-position appears satisfactory. No change OSSEOUS STRUCTURES: Mild bilateral shoulder arthrosis-number spondylosis. VISUALIZED UPPER ABDOMEN: Normal. OTHER FINDINGS: None. IMPRESSION: Persistent bibasilar patchy airspace opacities-bibasilar patchy infiltrates with or without concomitant discoid atelectasis and/or scarring is inferred. Trace partial improved aeration at the right lung base probable. Significant residual persists at both lung bases. Continued follow-up recommended to ensure more complete resolution and clearing here. Other findings as above.
--- NOTE | 2018-11-15 17:22 | CP.PCM.PN ---
<Yonathan Thompson - Last Filed: 11/15/18 17:15> Subjective - Date & Time of Evaluation Date of Evaluation: 11/15/18 Time of Evaluation: 17:24 - Subjective Subjective: PGY-[address] Dias Patient seen and examined at bedside, receiving duoneb treatment. Patient reports breathing is much better. Patient went for HD today and tolerated well. Patient denies chest pain, SOB at rest, headache, n/v/d/c, abdominal pain, numbness, dizziness. Objective - Vital Signs/Intake and Output Vital Signs (last 24 hours): Temp Pulse Resp BP Pulse Ox 97.9 F 85 20 113/60 98 11/15/18 15:44 11/15/18 15:44 11/15/18 15:44 11/15/18 15:44 11/15/18 15:44 Intake and Output: 11/15/18 11/15/18 06:59 18:59 Output Total 250 Balance -250 - Medications Medications: Current Medications Acetaminophen (Tylenol 325mg Tab) 650 mg PO Q6 PRN PRN Reason: Fever >100.4 F Albuterol/Ipratropium (Duoneb 3 Mg/0.5 Mg (3 Ml) Ud) 3 ml INH RQ4 NEW Last Admin: 11/15/18 11:58 Dose: Not Given Amlodipine Besylate (Norvasc) 5 mg PO DAILY [facility] Last Admin: 11/15/18 13:55 Dose: 5 mg Arformoterol Tartrate (Brovana) 15 mcg INH RQ12@1000,2200 [facility] Last Admin: 11/15/18 10:25 Dose: 15 mcg Budesonide (Pulmicort Respules) 0.5 mg INH RQ12 NEW Last Admin: 11/15/18 07:47 Dose: 0.5 mg Calcitriol (Rocaltrol) 0.25 mcg PO DAILY [facility] Last Admin: 11/15/18 13:55 Dose: 0.25 mcg Dextrose (Dextrose 50% Inj) 0 ml IV STAT PRN; Protocol PRN Reason: Hypoglycemia Protocol Dextrose (Glutose 15) 0 gm PO ONCE PRN; Protocol PRN Reason: Hypoglycemia Protocol Epoetin Justino (Procrit) 10,000 unit IV TTS [facility] Famotidine (Pepcid) 20 mg PO DAILY PRN PRN Reason: Heartburn Last Admin: 11/15/18 13:55 Dose: 20 mg Finasteride (Proscar) 5 mg PO DAILY [facility] Last Admin: 11/15/18 13:55 Dose: 5 mg Folic Acid (Folic Acid) 1 mg PO DAILY [facility] Last Admin: 11/15/18 13:55 Dose: 1 mg Glimepiride (Amaryl) 1 mg PO ACB [facility] Last Admin: 11/15/18 08:30 Dose: Not Given Glucagon (Glucagen Diagnostic Kit) 0 mg IM STAT PRN; Protocol PRN Reason: Hypoglycemia Protocol Heparin Sodium (Porcine) (Heparin) 5,000 units SC Q8 [facility] Last Admin: 11/15/18 13:35 Dose: Not Given Dextrose (Dextrose 5% In Water 1000 Ml) 1,000 mls @ 0 mls/hr IV .Q0M PRN; Protocol PRN Reason: Hypoglycemia Protocol Piperacillin Sod/Tazobactam Sod (Zosyn 2.25 Gm Iv Premix) 2.25 gm in 50 mls @ 100 mls/hr IVPB Q8H [facility]; Protocol Last Admin: 11/15/18 13:52 Dose: 100 mls/hr Vancomycin HCl 1 gm/ Sodium (Chloride) 250 mls @ 166.7 mls/hr IVPB ONCE ONE; Protocol Stop: 11/15/18 17:29 Insulin Human Regular (Novolin R) 0 unit SC ACHS [facility]; Protocol Last Admin: 11/15/18 12:30 Dose: Not Given Methylprednisolone (Solu-Medrol) 40 mg IVP BID [facility] Last Admin: 11/15/18 11:00 Dose: Not Given Rosuvastatin Calcium (Crestor) 5 mg PO HS [facility] Last Admin: 11/14/18 22:51 Dose: Not Given - Labs Labs: 11/15/18 06:46 11/15/18 06:46 PT 12.6 SECONDS (9.7-12.2) H 11/14/18 17:52 INR 1.2 11/14/18 17:52 APTT 33.5 SECONDS (21-34) 11/14/18 17:52 - Constitutional Appears: Non-toxic, No Acute Distress - Head Exam Head Exam: ATRAUMATIC, NORMOCEPHALIC - Eye Exam Eye Exam: EOMI, Normal appearance - ENT Exam ENT Exam: Mucous Membranes Moist - Respiratory Exam Respiratory Exam: Clear to Ausculation Bilateral, NORMAL BREATHING PATTERN. absent: Rhonchi, Wheezes - Cardiovascular Exam Cardiovascular Exam: REGULAR RHYTHM, +S1, +S2 - GI/Abdominal Exam GI & Abdominal Exam: Soft, Normal Bowel Sounds. absent: Tenderness - Extremities Exam Extremities Exam: Normal Inspection. absent: Pedal Edema, Tenderness - Neurological Exam Neurological Exam: Alert, Awake, Oriented x3 - Psychiatric Exam Psychiatric exam: Normal Affect, Normal Mood - Skin Skin Exam: Dry, Intact Assessment and Plan - Assessment and Plan (Free Text) Assessment: 82 year old male with past medical history of HTN, HLD, DM, ESRD on HD TTS, COPD, and chronic anemia presenting to ED for SOB, fevers and chills Plan: SIRS -f/u blood/sputum cultures -Pulmonology Dr Post consulted Abx -Vanco 1g q12 IVPB -Zosy 2.25 q6 IVPB ESRD on HD (TTS) -Nephrology (Dr. Dutton) consulted --S/p HD on admission 11/15 Meds -calcitriol 0.25 mcg PO daily -folic acid 1 mg PO daily -Procrit Hx of COPD Pulmonary Fibrosis -Pulmonology Dr Post consulted - f/u Meds -Brovana -Pulmicort -duonebs q4 new -solumedrol 40 BID ivp DM -accuchecks achs -hypoglycemic protocol Meds -Amaryl -ISS low Hx HTN Meds -Norvasc 5 mg PO daily Hx of HLD Meds -Crestor 5 mg PO HS NEW Hx Anemia of chronic disease -2/2 underlying renal failure -Monito H&H PPx -heparin 5000 q8 -SCDs -Diabetic Renal HHD Assessment and plan d/w Dr. Arun Thompson, PGY-1 <Sabino Dias - Last Filed: 11/15/18 19:09> Objective - Vital Signs/Intake and Output Vital Signs (last 24 hours): Temp Pulse Resp BP Pulse Ox 97.9 F 85 20 113/60 98 11/15/18 15:44 11/15/18 15:44 11/15/18 15:44 11/15/18 15:44 11/15/18 15:44 Intake and Output: 11/15/18 11/16/18 18:59 06:59 Output Total 250 Balance -250 - Medications Medications: Current Medications Acetaminophen (Tylenol 325mg Tab) 650 mg PO Q6 PRN PRN Reason: Fever >100.4 F Acetylcysteine (Acetylcysteine 20%) 4 ml INH RQ6 NEW Albuterol/Ipratropium (Duoneb 3 Mg/0.5 Mg (3 Ml) Ud) 3 ml INH RQ4 [facility] Last Admin: 11/15/18 11:58 Dose: Not Given Amlodipine Besylate (Norvasc) 5 mg PO DAILY [facility] Last Admin: 11/15/18 13:55 Dose: 5 mg Arformoterol Tartrate (Brovana) 15 mcg INH RQ12@1000,2200 [facility] Last Admin: 11/15/18 10:25 Dose: 15 mcg Calcitriol (Rocaltrol) 0.25 mcg PO DAILY [facility] Last Admin: 11/15/18 13:55 Dose: 0.25 mcg Dextrose (Dextrose 50% Inj) 0 ml IV STAT PRN; Protocol PRN Reason: Hypoglycemia Protocol Dextrose (Glutose 15) 0 gm PO ONCE PRN; Protocol PRN Reason: Hypoglycemia Protocol Epoetin Justino (Procrit) 10,000 unit IV TTS [facility] Famotidine (Pepcid) 20 mg PO DAILY PRN PRN Reason: Heartburn Last Admin: 11/15/18 13:55 Dose: 20 mg Finasteride (Proscar) 5 mg PO DAILY [facility] Last Admin: 11/15/18 13:55 Dose: 5 mg Folic Acid (Folic Acid) 1 mg PO DAILY [facility] Last Admin: 11/15/18 13:55 Dose: 1 mg Glimepiride (Amaryl) 1 mg PO ACB [facility] Last Admin: 11/15/18 08:30 Dose: Not Given Glucagon (Glucagen Diagnostic Kit) 0 mg IM STAT PRN; Protocol PRN Reason: Hypoglycemia Protocol Heparin Sodium (Porcine) (Heparin) 5,000 units SC Q8 [facility] Last Admin: 11/15/18 13:35 Dose: Not Given Dextrose (Dextrose 5% In Water 1000 Ml) 1,000 mls @ 0 mls/hr IV .Q0M PRN; Protocol PRN Reason: Hypoglycemia Protocol Piperacillin Sod/Tazobactam Sod (Zosyn 2.25 Gm Iv Premix) 2.25 gm in 50 mls @ 100 mls/hr IVPB Q8H NEW; Protocol Last Admin: 11/15/18 13:52 Dose: 100 mls/hr Insulin Human Regular (Novolin R) 0 unit SC ACHS NEW; Protocol Last Admin: 11/15/18 17:41 Dose: 2 units Methylprednisolone (Solu-Medrol) 40 mg IVP BID NEW Last Admin: 11/15/18 17:41 Dose: 40 mg Rosuvastatin Calcium (Crestor) 5 mg PO HS NEW Last Admin: 11/14/18 22:51 Dose: Not Given - Labs Labs: 11/15/18 06:46 11/15/18 06:46 PT 12.6 SECONDS (9.7-12.2) H 11/14/18 17:52 INR 1.2 11/14/18 17:52 APTT 33.5 SECONDS (21-34) 11/14/18 17:52 Attending/Attestation - Attestation I have personally seen and examined this patient.: Yes I have fully participated in the care of the patient.: Yes I have reviewed all pertinent clinical information, including history, physical exam and plan: Yes Notes (Text): SEEN AND EXAMINED BY ME WITH THE RESIDENT HE LOOKS BETTER THAN LAST NIGHT HAS DIALYSIS THIS MORNING FEVER,RULE OUT INFECTION/SEPSIS(FEVER,LEUKOCYTOSIS,TACHYCARDIA,TACHYPNEA) CONTINUE ZOSYN AND VANCO IF BLOOD CULTURE NEGATIVE WE WILL STOP VANCO
--- NOTE | 2018-11-15 18:10 | CP.PCM.CON ---
History of Present Illness - History of Present Illness History of Present Illness: Reason for consultation: Shortness of breath and cough 83-year-old male with history of end-stage renal disease on hemodialysis, COPD, severe bronchiectasis, diabetes, hyperlipidemia, hypertension presented to emergency room complaining of shortness of breath progressively getting worse for the past 1 week. Shortness of breath also associated with fever chills and sweating. Also complaining of dry cough which is bored during the day and at night. PMHx: HTN, HLD, DM, ESRD on HD (TTS), COPD, anemia PSHx: R inguinal hernia repair x2 Allergies: ASA--"stomach hurts" Social Hx: 30ppy, quit at age 42, No alcohol or illicit drug use Family Hx: noncontributory Review of Systems - Review of Systems All systems: reviewed and no additional remarkable complaints except (Fever, shortness of breath and cough) Past Patient History - Infectious Disease Hx of Infectious Diseases: None - Past Medical History & Family History Past Medical History?: Yes - Past Social History Smoking Status: Never Smoked - CARDIAC Hx Hypertension: Yes - PULMONARY Hx Bronchitis: Yes Hx Chronic Obstructive Pulmonary Disease (COPD): Yes Hx Pneumonia: Yes - NEUROLOGICAL Hx Neurological Disorder: No - HEENT Hx HEENT Problems: No Other/Comment: wears glasses - RENAL Hx Chronic Kidney Disease: Yes Hx Dialysis: Yes Type of Dialysis Access: R SC cath Date of Last Dialysis Treatment: 11/11/18 - ENDOCRINE/METABOLIC Hx Endocrine Disorders: Yes Hx Diabetes Mellitus Type 2: Yes - HEMATOLOGICAL/ONCOLOGICAL Hx Blood Disorders: Yes Hx Blood Transfusions: Yes - INTEGUMENTARY Hx Dermatological Problems: No - MUSCULOSKELETAL/RHEUMATOLOGICAL Hx Arthritis: Yes Hx Falls: No - GASTROINTESTINAL Hx Gastrointestinal Disorders: Yes Other/Comment: HERNIA - GENITOURINARY/GYNECOLOGICAL Hx Genitourinary Disorders: No - PSYCHIATRIC Hx Substance Use: No - SURGICAL HISTORY Hx Surgeries: Yes Hx Herniorrhaphy: Yes (RIGHT INGUINAL) - ANESTHESIA Hx Anesthesia: Yes Hx Anesthesia Reactions: No Hx Malignant Hyperthermia: No Meds Allergies/Adverse Reactions: Allergies Allergy/AdvReac Type Severity Reaction Status Date / Time aspirin Allergy Severe PAIN Verified 08/24/18 13:31 - Medications Medications: Current Medications Acetaminophen (Tylenol 325mg Tab) 650 mg PO Q6 PRN PRN Reason: Fever >100.4 F Albuterol/Ipratropium (Duoneb 3 Mg/0.5 Mg (3 Ml) Ud) 3 ml INH RQ4 [facility] Last Admin: 11/15/18 11:58 Dose: Not Given Amlodipine Besylate (Norvasc) 5 mg PO DAILY [facility] Last Admin: 11/15/18 13:55 Dose: 5 mg Arformoterol Tartrate (Brovana) 15 mcg INH RQ12@1000,2200 [facility] Last Admin: 11/15/18 10:25 Dose: 15 mcg Budesonide (Pulmicort Respules) 0.5 mg INH RQ12 [facility] Last Admin: 11/15/18 07:47 Dose: 0.5 mg Calcitriol (Rocaltrol) 0.25 mcg PO DAILY [facility] Last Admin: 11/15/18 13:55 Dose: 0.25 mcg Dextrose (Dextrose 50% Inj) 0 ml IV STAT PRN; Protocol PRN Reason: Hypoglycemia Protocol Dextrose (Glutose 15) 0 gm PO ONCE PRN; Protocol PRN Reason: Hypoglycemia Protocol Epoetin Justino (Procrit) 10,000 unit IV TTS [facility] Famotidine (Pepcid) 20 mg PO DAILY PRN PRN Reason: Heartburn Last Admin: 11/15/18 13:55 Dose: 20 mg Finasteride (Proscar) 5 mg PO DAILY [facility] Last Admin: 11/15/18 13:55 Dose: 5 mg Folic Acid (Folic Acid) 1 mg PO DAILY [facility] Last Admin: 11/15/18 13:55 Dose: 1 mg Glimepiride (Amaryl) 1 mg PO ACB [facility] Last Admin: 11/15/18 08:30 Dose: Not Given Glucagon (Glucagen Diagnostic Kit) 0 mg IM STAT PRN; Protocol PRN Reason: Hypoglycemia Protocol Heparin Sodium (Porcine) (Heparin) 5,000 units SC Q8 [facility] Last Admin: 11/15/18 13:35 Dose: Not Given Dextrose (Dextrose 5% In Water 1000 Ml) 1,000 mls @ 0 mls/hr IV .Q0M PRN; Protocol PRN Reason: Hypoglycemia Protocol Piperacillin Sod/Tazobactam Sod (Zosyn 2.25 Gm Iv Premix) 2.25 gm in 50 mls @ 100 mls/hr IVPB Q8H [facility]; Protocol Last Admin: 11/15/18 13:52 Dose: 100 mls/hr Insulin Human Regular (Novolin R) 0 unit SC ACHS [facility]; Protocol Last Admin: 11/15/18 17:41 Dose: 2 units Methylprednisolone (Solu-Medrol) 40 mg IVP BID [facility] Last Admin: 11/15/18 17:41 Dose: 40 mg Rosuvastatin Calcium (Crestor) 5 mg PO HS [facility] Last Admin: 11/14/18 22:51 Dose: Not Given Physical Exam - Head Exam Head Exam: ATRAUMATIC, NORMOCEPHALIC - ENT Exam ENT Exam: Mucous Membranes Moist - Neck Exam Neck exam: Positive for: Normal Inspection - Respiratory Exam Respiratory Exam: Rales, Rhonchi - Cardiovascular Exam Cardiovascular Exam: REGULAR RHYTHM - GI/Abdominal Exam GI & Abdominal Exam: Normal Bowel Sounds, Soft - Extremities Exam Extremities exam: Positive for: normal inspection - Neurological Exam Neurological exam: Alert, Oriented x3 Results - Vital Signs Recent Vital Signs: Last Vital Signs Temp 97.9 F 11/15/18 15:44 Pulse 85 11/15/18 15:44 Resp 20 11/15/18 15:44 BP 113/60 11/15/18 15:44 Pulse Ox 98 11/15/18 15:44 - Labs Result Diagrams: 11/15/18 06:46 11/15/18 06:46 Labs: Laboratory Results - last 24 hr 11/14/18 11/14/18 11/14/18 17:52 17:52 18:03 WBC 13.1 H RBC 3.45 L Hgb 11.0 L Hct 34.3 L MCV 99.3 H D MCH 31.8 H MCHC 32.1 L RDW 17.1 H Plt Count 298 MPV 6.8 L Neut % (Auto) 92.1 H Lymph % (Auto) 2.0 L [place] % (Auto) 5.1 Eos % (Auto) 0.1 Baso % (Auto) 0.7 Neut # (Auto) 12.1 H Lymph # (Auto) 0.3 L [place] # (Auto) 0.7 Eos # (Auto) 0.0 Baso # (Auto) 0.1 Neutrophils % (Manual) 83 H Band Neutrophils % 9 H Lymphocytes % (Manual) 5 L Monocytes % (Manual) 3 Metamyelocytes % Myelocytes % Nucleated RBC % Platelet Estimate Normal Large Platelets Giant Platelets Hypochromasia (manual) Slight Poikilocytosis (manual Anisocytosis (manual) Slight Target Cells Tear Drop Cells Acanthocytes (Spur) pO2 32 VBG pH 7.37 VBG pCO2 41 VBG HCO3 22.7 VBG Total CO2 25.0 VBG O2 Sat (Calc) 54.9 VBG Base Excess -1.5 L VBG Potassium 4.7 Glucose 43 L Lactate 0.8 Sodium 137 139.0 Potassium 5.2 Chloride 101 107.0 Carbon Dioxide 23 Anion Gap 18 BUN 59 H Creatinine 5.3 H Est GFR ( Amer) 13 Est GFR (Non-Af Amer) 10 POC Glucose (mg/dL) Random Glucose 45 L D Hemoglobin A1c Calcium 9.5 Total Bilirubin 0.9 AST 21 ALT 7 L D Alkaline Phosphatase 76 Troponin I 0.0220 Total Protein 7.4 Albumin 3.7 Globulin 3.7 Albumin/Globulin Ratio 1.0 Lipase 52 Venous Blood Potassium 4.7 Urine Color Urine Clarity Urine pH Ur Specific [place] Urine Protein Urine Glucose (UA) Urine Ketones Urine Blood Urine Nitrate Urine Bilirubin Urine Urobilinogen Ur Leukocyte Esterase Urine WBC (Auto) Urine RBC (Auto) Ur Squamous Epith Cells Random Vancomycin Blood Type Antibody Screen 11/14/18 11/14/18 11/14/18 19:36 19:38 20:41 WBC RBC Hgb Hct MCV MCH MCHC RDW Plt Count MPV Neut % (Auto) Lymph % (Auto) [place] % (Auto) Eos % (Auto) Baso % (Auto) Neut # (Auto) Lymph # (Auto) [place] # (Auto) Eos # (Auto) Baso # (Auto) Neutrophils % (Manual) Band Neutrophils % Lymphocytes % (Manual) Monocytes % (Manual) Metamyelocytes % Myelocytes % Nucleated RBC % Platelet Estimate Large Platelets Giant Platelets Hypochromasia (manual) Poikilocytosis (manual Anisocytosis (manual) Target Cells Tear Drop Cells Acanthocytes (Spur) pO2 VBG pH VBG pCO2 VBG HCO3 VBG Total CO2 VBG O2 Sat (Calc) VBG Base Excess VBG Potassium Glucose Lactate Sodium Potassium Chloride Carbon Dioxide Anion Gap BUN Creatinine Est GFR ( Amer) Est GFR (Non-Af Amer) POC Glucose (mg/dL) 53 L 47 L 186 H Random Glucose Hemoglobin A1c Calcium Total Bilirubin AST ALT Alkaline Phosphatase Troponin I Total Protein Albumin Globulin Albumin/Globulin Ratio Lipase Venous Blood Potassium Urine Color Urine Clarity Urine pH Ur Specific [place] Urine Protein Urine Glucose (UA) Urine Ketones Urine Blood Urine Nitrate Urine Bilirubin Urine Urobilinogen Ur Leukocyte Esterase Urine WBC (Auto) Urine RBC (Auto) Ur Squamous Epith Cells Random Vancomycin Blood Type Antibody Screen 11/14/18 11/15/18 11/15/18 21:51 06:20 06:46 WBC 7.2 RBC 3.31 L Hgb 11.1 L Hct 33.3 L MCV 100.5 H MCH 33.5 H MCHC 33.4 RDW 16.9 H Plt Count 262 MPV 7.4 Neut % (Auto) 96.3 H Lymph % (Auto) 1.9 L [place] % (Auto) 1.7 Eos % (Auto) 0.0 Baso % (Auto) 0.1 Neut # (Auto) 6.9 Lymph # (Auto) 0.1 L [place] # (Auto) 0.1 Eos # (Auto) 0.0 Baso # (Auto) 0.0 Neutrophils % (Manual) 82 H Band Neutrophils % Lymphocytes % (Manual) 12 L Monocytes % (Manual) 3 Metamyelocytes % 1 H Myelocytes % 2 H Nucleated RBC % 61 H Platelet Estimate Normal Large Platelets Present Giant Platelets Present Hypochromasia (manual) Moderate Poikilocytosis (manual Slight Anisocytosis (manual) Slight Target Cells Slight Tear Drop Cells Slight Acanthocytes (Spur) Slight pO2 VBG pH VBG pCO2 VBG HCO3 VBG Total CO2 VBG O2 Sat (Calc) VBG Base Excess VBG Potassium Glucose Lactate Sodium Potassium Chloride Carbon Dioxide Anion Gap BUN Creatinine Est GFR ( Amer) Est GFR (Non-Af Amer) POC Glucose (mg/dL) 311 H 440 H* Random Glucose Hemoglobin A1c Calcium Total Bilirubin AST ALT Alkaline Phosphatase Troponin I Total Protein Albumin Globulin Albumin/Globulin Ratio Lipase Venous Blood Potassium Urine Color Urine Clarity Urine pH Ur Specific [place] Urine Protein Urine Glucose (UA) Urine Ketones Urine Blood Urine Nitrate Urine Bilirubin Urine Urobilinogen Ur Leukocyte Esterase Urine WBC (Auto) Urine RBC (Auto) Ur Squamous Epith Cells Random Vancomycin Blood Type Antibody Screen 11/15/18 11/15/18 11/15/18 06:46 06:46 09:32 WBC RBC Hgb Hct MCV MCH MCHC RDW Plt Count MPV Neut % (Auto) Lymph % (Auto) [place] % (Auto) Eos % (Auto) Baso % (Auto) Neut # (Auto) Lymph # (Auto) [place] # (Auto) Eos # (Auto) Baso # (Auto) Neutrophils % (Manual) Band Neutrophils % Lymphocytes % (Manual) Monocytes % (Manual) Metamyelocytes % Myelocytes % Nucleated RBC % Platelet Estimate Large Platelets Giant Platelets Hypochromasia (manual) Poikilocytosis (manual Anisocytosis (manual) Target Cells Tear Drop Cells Acanthocytes (Spur) pO2 VBG pH VBG pCO2 VBG HCO3 VBG Total CO2 VBG O2 Sat (Calc) VBG Base Excess VBG Potassium Glucose Lactate Sodium 135 Potassium 4.9 Chloride 101 Carbon Dioxide 21 L Anion Gap 17 BUN 63 H Creatinine 5.6 H Est GFR ( Amer) 12 Est GFR (Non-Af Amer) 10 POC Glucose (mg/dL) Random Glucose 447 H* D Hemoglobin A1c 6.2 Calcium 9.1 Total Bilirubin 0.6 AST 23 ALT 10 L D Alkaline Phosphatase 73 Troponin I Total Protein 6.7 Albumin 3.4 L Globulin 3.3 Albumin/Globulin Ratio 1.0 Lipase Venous Blood Potassium Urine Color Urine Clarity Urine pH Ur Specific [place] Urine Protein Urine Glucose (UA) Urine Ketones Urine Blood Urine Nitrate Urine Bilirubin Urine Urobilinogen Ur Leukocyte Esterase Urine WBC (Auto) Urine RBC (Auto) Ur Squamous Epith Cells Random Vancomycin Blood Type O POSITIVE Antibody Screen Negative 11/15/18 11/15/18 11/15/18 09:34 12:01 13:41 WBC RBC Hgb Hct MCV MCH MCHC RDW Plt Count MPV Neut % (Auto) Lymph % (Auto) [place] % (Auto) Eos % (Auto) Baso % (Auto) Neut # (Auto) Lymph # (Auto) [place] # (Auto) Eos # (Auto) Baso # (Auto) Neutrophils % (Manual) Band Neutrophils % Lymphocytes % (Manual) Monocytes % (Manual) Metamyelocytes % Myelocytes % Nucleated RBC % Platelet Estimate Large Platelets Giant Platelets Hypochromasia (manual) Poikilocytosis (manual Anisocytosis (manual) Target Cells Tear Drop Cells Acanthocytes (Spur) pO2 VBG pH VBG pCO2 VBG HCO3 VBG Total CO2 VBG O2 Sat (Calc) VBG Base Excess VBG Potassium Glucose Lactate Sodium Potassium Chloride Carbon Dioxide Anion Gap BUN Creatinine Est GFR ( Amer) Est GFR (Non-Af Amer) POC Glucose (mg/dL) 221 H Random Glucose Hemoglobin A1c Calcium Total Bilirubin AST ALT Alkaline Phosphatase Troponin I Total Protein Albumin Globulin Albumin/Globulin Ratio Lipase Venous Blood Potassium Urine Color Yellow Urine Clarity Clear Urine pH 6.0 Ur Specific [place] 1.016 Urine Protein 3+ H Urine Glucose (UA) 3+ H Urine Ketones Negative Urine Blood Negative Urine Nitrate Negative Urine Bilirubin Negative Urine Urobilinogen Normal Ur Leukocyte Esterase Neg Urine WBC (Auto) 1 Urine RBC (Auto) 1 Ur Squamous Epith Cells < 1 Random Vancomycin 11.2 Blood Type Antibody Screen 11/15/18 15:59 WBC RBC Hgb Hct MCV MCH MCHC RDW Plt Count MPV Neut % (Auto) Lymph % (Auto) [place] % (Auto) Eos % (Auto) Baso % (Auto) Neut # (Auto) Lymph # (Auto) [place] # (Auto) Eos # (Auto) Baso # (Auto) Neutrophils % (Manual) Band Neutrophils % Lymphocytes % (Manual) Monocytes % (Manual) Metamyelocytes % Myelocytes % Nucleated RBC % Platelet Estimate Large Platelets Giant Platelets Hypochromasia (manual) Poikilocytosis (manual Anisocytosis (manual) Target Cells Tear Drop Cells Acanthocytes (Spur) pO2 VBG pH VBG pCO2 VBG HCO3 VBG Total CO2 VBG O2 Sat (Calc) VBG Base Excess VBG Potassium Glucose Lactate Sodium Potassium Chloride Carbon Dioxide Anion Gap BUN Creatinine Est GFR ( Amer) Est GFR (Non-Af Amer) POC Glucose (mg/dL) 222 H Random Glucose Hemoglobin A1c Calcium Total Bilirubin AST ALT Alkaline Phosphatase Troponin I Total Protein Albumin Globulin Albumin/Globulin Ratio Lipase Venous Blood Potassium Urine Color Urine Clarity Urine pH Ur Specific [place] Urine Protein Urine Glucose (UA) Urine Ketones Urine Blood Urine Nitrate Urine Bilirubin Urine Urobilinogen Ur Leukocyte Esterase Urine WBC (Auto) Urine RBC (Auto) Ur Squamous Epith Cells Random Vancomycin Blood Type Antibody Screen Assessment & Plan (1) Bronchiectasis Assessment and Plan: bronchiectasis with underlying pneumonia cannot be ruled out Agree with Zosyn Follow-up culture and sensitivity Nebulizer treatment Discontinue inhaled steroids Mucolytic's and 3% normal saline nebulizer treatment needed Status: Acute (2) COPD (chronic obstructive pulmonary disease) Status: Acute (3) ESRD needing dialysis Status: Acute
[2018-11-15] MEDS: Acetylcysteine 20% Inhal Soln (4ml) INH SCH ×2 (22:12→22:13)
[2018-11-16] MEDS: Albuterol-Ipratrop 3 mg / 0.5 (3 ml) UD INH SCH ×6 (03:00→23:40)
[2018-11-16] MEDS: Acetylcysteine 20% Inhal Soln (4ml) INH SCH ×4 (03:00→20:20)
[2018-11-16] MEDS: Piperacill/Tazo 2.25gm in Dex 2.25 GM/50 ML BAG IVPB SCH ×3 (05:45→21:38)
[2018-11-16 07:30] LABS: HEMOGLOBIN 10.5 g/dL (12.0-18.0); LYMPH # 0.2 K/uL (1.0-4.3); LYMPH % 2.5 % (20.0-40.0); MEAN CELL VOLUME 98.6 fL (80.0-94.0); MEAN CORPUSCULAR HEMOGLOBIN 32.3 pg (27.0-31.0); MEAN CORPUSCULAR HGB CONC 32.8 g/dL (33.0-37.0); MEAN PLATELET VOLUME 7.6 fL (7.2-11.7); MONO # 0.4 K/uL (0.0-0.8); MONO % 5.2 % (0.0-10.0); NEUT # 6.9 K/uL (1.8-7.0); NEUT % 92.3 % (50.0-75.0); PLATELET COUNT 255 K/uL (130-400); RBC 3.24 Mil/uL (4.40-5.90); RED CELL DISTRIBUTION WIDTH 16.8 % (11.5-14.5); WHITE BLOOD COUNT 7.5 K/uL (4.8-10.8)
[2018-11-16 07:40] LABS: ALB/GLOB RATIO 1.2 (1.0-2.1); ALBUMIN 3.5 g/dL (3.5-5.0); CALCIUM 8.6 mg/dl (8.6-10.4)
[2018-11-16] MEDS: (Novolin R) Insulin Human Regular 100 units/ml vial SC SCH ×4 (08:30→21:17)
[2018-11-16] MEDS: Arformoterol 15 mcg/2 ml Inh Sol INH SCH ×2 (09:06→22:30)
[2018-11-16 09:31] LABS: ANISOCYTOSIS SLIGHT; BANDS 2 % (0-2); HYPOCHROMIC SLIGHT; LYMPHOCYTE 3 % (20-40); MONOCYTE 7 % (0-10); NEUTROPHIL 87 % (50-75); PLATELET ESTIMATE NORMAL (NORMAL); POIKILOCYTOSIS SLIGHT; REACTIVE LYMPHOCYTES 1 % (0-0); TOTAL CELLS COUNTED 100
[2018-11-16 09:32] LABS: TARGET CELLS SLIGHT
[2018-11-16 09:38] LABS: LARGE PLATELETS PRESENT
[2018-11-16] MEDS: MethylPREDNISolone 40 mg Vial IVP SCH ×2 (09:49→17:59)
--- NOTE | 2018-11-16 13:33 | CP.PCM.PN ---
Subjective - Date & Time of Evaluation Date of Evaluation: 11/16/18 Time of Evaluation: 13:28 - Subjective Subjective: feels better no distress chronic dyspnea and cough appetite good tolerated HD yesterday no fever no pain appetite fair urine production minimal no rash no headache no swelling no abdominal pain Objective - Vital Signs/Intake and Output Vital Signs (last 24 hours): Temp Pulse Resp BP Pulse Ox 97.9 F 83 20 116/56 L 100 11/16/18 07:00 11/16/18 08:15 11/16/18 07:00 11/16/18 07:00 11/16/18 07:00 - Medications Medications: Current Medications Acetaminophen (Tylenol 325mg Tab) 650 mg PO Q6 PRN PRN Reason: Fever >100.4 F Acetylcysteine (Acetylcysteine 20%) 4 ml INH RQ6 [facility] Last Admin: 11/16/18 07:10 Dose: Not Given Albuterol/Ipratropium (Duoneb 3 Mg/0.5 Mg (3 Ml) Ud) 3 ml INH RQ4 [facility] Last Admin: 11/16/18 11:01 Dose: Not Given Amlodipine Besylate (Norvasc) 5 mg PO DAILY [facility] Last Admin: 11/16/18 09:47 Dose: 5 mg Arformoterol Tartrate (Brovana) 15 mcg INH RQ12@1000,2200 [facility] Last Admin: 11/16/18 09:06 Dose: 15 mcg Calcitriol (Rocaltrol) 0.25 mcg PO DAILY [facility] Last Admin: 11/16/18 09:47 Dose: 0.25 mcg Dextrose (Dextrose 50% Inj) 0 ml IV STAT PRN; Protocol PRN Reason: Hypoglycemia Protocol Dextrose (Glutose 15) 0 gm PO ONCE PRN; Protocol PRN Reason: Hypoglycemia Protocol Epoetin Justino (Procrit) 10,000 unit IV TTS [facility] Famotidine (Pepcid) 20 mg PO DAILY PRN PRN Reason: Heartburn Last Admin: 11/16/18 09:47 Dose: 20 mg Finasteride (Proscar) 5 mg PO DAILY [facility] Last Admin: 11/16/18 09:47 Dose: 5 mg Folic Acid (Folic Acid) 1 mg PO DAILY [facility] Last Admin: 11/16/18 09:47 Dose: 1 mg Glimepiride (Amaryl) 1 mg PO ACB [facility] Last Admin: 11/16/18 08:00 Dose: 1 mg Glucagon (Glucagen Diagnostic Kit) 0 mg IM STAT PRN; Protocol PRN Reason: Hypoglycemia Protocol Heparin Sodium (Porcine) (Heparin) 5,000 units SC Q8 [facility] Last Admin: 11/16/18 05:45 Dose: 5,000 units Dextrose (Dextrose 5% In Water 1000 Ml) 1,000 mls @ 0 mls/hr IV .Q0M PRN; Protocol PRN Reason: Hypoglycemia Protocol Piperacillin Sod/Tazobactam Sod (Zosyn 2.25 Gm Iv Premix) 2.25 gm in 50 mls @ 100 mls/hr IVPB Q8H [facility]; Protocol Last Admin: 11/16/18 05:45 Dose: 100 mls/hr Insulin Human Regular (Novolin R) 0 unit SC ACHS [facility]; Protocol Last Admin: 11/16/18 12:12 Dose: 2 units Methylprednisolone (Solu-Medrol) 20 mg IVP BID [facility] Last Admin: 11/16/18 09:49 Dose: 20 mg Rosuvastatin Calcium (Crestor) 5 mg PO HS [facility] Last Admin: 11/15/18 22:12 Dose: 5 mg - Labs Labs: 11/16/18 07:03 11/16/18 07:03 PT 12.6 SECONDS (9.7-12.2) H 11/14/18 17:52 INR 1.2 11/14/18 17:52 APTT 33.5 SECONDS (21-34) 11/14/18 17:52 - Constitutional Appears: No Acute Distress, Chronically Ill - Head Exam Head Exam: ATRAUMATIC, NORMAL INSPECTION - Eye Exam Eye Exam: EOMI - ENT Exam ENT Exam: Mucous Membranes Moist - Neck Exam Neck Exam: Full ROM. absent: Lymphadenopathy - Respiratory Exam Respiratory Exam: Decreased Breath Sounds, Rales - Cardiovascular Exam Cardiovascular Exam: REGULAR RHYTHM. absent: Rubs - GI/Abdominal Exam GI & Abdominal Exam: Soft. absent: Tenderness - Extremities Exam Extremities Exam: absent: Pedal Edema - Neurological Exam Neurological Exam: Alert, Awake Assessment and Plan - Assessment and Plan (Free Text) Assessment: maint HD on AB pulmonary toilet
--- NOTE | 2018-11-16 15:02 | CP.PCM.PN ---
<Yonathan Thompson - Last Filed: 11/16/18 14:58> Subjective - Date & Time of Evaluation Date of Evaluation: 11/16/18 Time of Evaluation: 15:03 - Subjective Subjective: PGY-[address] Dias Patient seen and examined at bedside, receiving duoneb treatment. Patient reports breathing is much better, and states his cough is improved. However he was still coughing continuously when I went to examine him this morning. Patient denies chest pain, SOB at rest, headache, n/v/d/c, abdominal pain, numbness, dizziness. Objective - Vital Signs/Intake and Output Vital Signs (last 24 hours): Temp Pulse Resp BP Pulse Ox 97.9 F 83 20 116/56 L 100 11/16/18 07:00 11/16/18 08:15 11/16/18 07:00 11/16/18 07:00 11/16/18 07:00 - Medications Medications: Current Medications Acetaminophen (Tylenol 325mg Tab) 650 mg PO Q6 PRN PRN Reason: Fever >100.4 F Acetylcysteine (Acetylcysteine 20%) 4 ml INH RQ6 [facility] Last Admin: 11/16/18 07:10 Dose: Not Given Albuterol/Ipratropium (Duoneb 3 Mg/0.5 Mg (3 Ml) Ud) 3 ml INH RQ4 [facility] Last Admin: 11/16/18 11:01 Dose: Not Given Amlodipine Besylate (Norvasc) 5 mg PO DAILY [facility] Last Admin: 11/16/18 09:47 Dose: 5 mg Arformoterol Tartrate (Brovana) 15 mcg INH RQ12@1000,2200 [facility] Last Admin: 11/16/18 09:06 Dose: 15 mcg Calcitriol (Rocaltrol) 0.25 mcg PO DAILY [facility] Last Admin: 11/16/18 09:47 Dose: 0.25 mcg Dextrose (Dextrose 50% Inj) 0 ml IV STAT PRN; Protocol PRN Reason: Hypoglycemia Protocol Dextrose (Glutose 15) 0 gm PO ONCE PRN; Protocol PRN Reason: Hypoglycemia Protocol Epoetin Justino (Procrit) 10,000 unit IV TTS [facility] Famotidine (Pepcid) 20 mg PO DAILY PRN PRN Reason: Heartburn Last Admin: 11/16/18 09:47 Dose: 20 mg Finasteride (Proscar) 5 mg PO DAILY [facility] Last Admin: 11/16/18 09:47 Dose: 5 mg Folic Acid (Folic Acid) 1 mg PO DAILY [facility] Last Admin: 11/16/18 09:47 Dose: 1 mg Glimepiride (Amaryl) 1 mg PO ACB [facility] Last Admin: 11/16/18 08:00 Dose: 1 mg Glucagon (Glucagen Diagnostic Kit) 0 mg IM STAT PRN; Protocol PRN Reason: Hypoglycemia Protocol Heparin Sodium (Porcine) (Heparin) 5,000 units SC Q8 [facility] Last Admin: 11/16/18 14:01 Dose: 5,000 units Dextrose (Dextrose 5% In Water 1000 Ml) 1,000 mls @ 0 mls/hr IV .Q0M PRN; Protocol PRN Reason: Hypoglycemia Protocol Piperacillin Sod/Tazobactam Sod (Zosyn 2.25 Gm Iv Premix) 2.25 gm in 50 mls @ 100 mls/hr IVPB Q8H [facility]; Protocol Last Admin: 11/16/18 14:02 Dose: 100 mls/hr Insulin Human Regular (Novolin R) 0 unit SC ACHS [facility]; Protocol Last Admin: 11/16/18 12:12 Dose: 2 units Methylprednisolone (Solu-Medrol) 20 mg IVP BID [facility] Last Admin: 11/16/18 09:49 Dose: 20 mg Rosuvastatin Calcium (Crestor) 5 mg PO HS [facility] Last Admin: 11/15/18 22:12 Dose: 5 mg - Labs Labs: 11/16/18 07:03 11/16/18 07:03 PT 12.6 SECONDS (9.7-12.2) H 11/14/18 17:52 INR 1.2 11/14/18 17:52 APTT 33.5 SECONDS (21-34) 11/14/18 17:52 - Constitutional Appears: Non-toxic, No Acute Distress - Head Exam Head Exam: ATRAUMATIC, NORMOCEPHALIC - Eye Exam Eye Exam: EOMI, Normal appearance - ENT Exam ENT Exam: Mucous Membranes Moist - Respiratory Exam Respiratory Exam: Clear to Ausculation Bilateral, NORMAL BREATHING PATTERN. absent: Rhonchi, Wheezes - Cardiovascular Exam Cardiovascular Exam: REGULAR RHYTHM, +S1, +S2 - GI/Abdominal Exam GI & Abdominal Exam: Soft, Normal Bowel Sounds. absent: Tenderness - Extremities Exam Extremities Exam: Normal Inspection. absent: Pedal Edema - Neurological Exam Neurological Exam: Alert, Awake, Oriented x3 - Psychiatric Exam Psychiatric exam: Normal Affect, Normal Mood - Skin Skin Exam: Dry, Intact Assessment and Plan - Assessment and Plan (Free Text) Assessment: 82 year old male with past medical history of HTN, HLD, DM, ESRD on HD TTS, COPD, and chronic anemia presenting to ED for SOB, fevers and chills Plan: Bronchiectasis/Pneumonia -Pulmonology Dr Post consulted Meds -Vanco 1g q12 IVPB -Zosyn 2.25 q6 IVPB -Solumedrol 40 IV Q12 ESRD on HD (TTS) -Nephrology (Dr. Dutton) consulted --S/p HD on admission 11/15 Meds -calcitriol 0.25 mcg PO daily -folic acid 1 mg PO daily -Procrit Hx of COPD Pulmonary Fibrosis -Pulmonology Dr Post consulted - f/u Meds -Brovana -Pulmicort -duonebs q4 new -solumedrol 40 BID ivp DM -accuchecks achs -hypoglycemic protocol Meds -Amaryl -ISS low Hx HTN Meds -Norvasc 5 mg PO daily Hx of HLD Meds -Crestor 5 mg PO HS NEW Hx Anemia of chronic disease -2/2 underlying renal failure -[place]ito H&H BPH -Proscar 5mg PO daily PPx -heparin 5000 q8 -SCDs -Diabetic Renal HHD Dispo: Per Pulm, Dr. Post, patient is improving but would benefit from an additional day of IV antibiotics and IV steroids. Assessment and plan d/w Dr. Arun Thompson, PGY-1 <Sabino Dias - Last Filed: 11/17/18 19:07> Objective - Vital Signs/Intake and Output Vital Signs (last 24 hours): Temp Pulse Resp BP Pulse Ox 98.6 F 86 20 120/56 L 98 11/17/18 15:52 11/17/18 15:52 11/17/18 15:52 11/17/18 15:52 11/17/18 15:52 - Labs Labs: 11/17/18 06:31 11/17/18 06:31 PT 12.6 SECONDS (9.7-12.2) H 11/14/18 17:52 INR 1.2 11/14/18 17:52 APTT 33.5 SECONDS (21-34) 11/14/18 17:52 Attending/Attestation - Attestation I have personally seen and examined this patient.: Yes I have fully participated in the care of the patient.: Yes I have reviewed all pertinent clinical information, including history, physical exam and plan: Yes Notes (Text): Seen and examined with the resident.patient is improving,less sob than yes terday,has cough and mild sob. patient has h/o Bronchiectasis His pneumonia is improving and we will continue zosyn posible discharge tomorrow if he feels better
--- NOTE | 2018-11-16 15:03 | CP.PCM.PN ---
Subjective - Date & Time of Evaluation Date of Evaluation: 11/16/18 Time of Evaluation: 11:20 - Subjective Subjective: Patient seen and examined Breathing better Still having slight cough Afebrile Awake and responsive Objective - Vital Signs/Intake and Output Vital Signs (last 24 hours): Temp Pulse Resp BP Pulse Ox 97.9 F 83 20 116/56 L 100 11/16/18 07:00 11/16/18 08:15 11/16/18 07:00 11/16/18 07:00 11/16/18 07:00 - Medications Medications: Current Medications Acetaminophen (Tylenol 325mg Tab) 650 mg PO Q6 PRN PRN Reason: Fever >100.4 F Acetylcysteine (Acetylcysteine 20%) 4 ml INH RQ6 [facility] Last Admin: 11/16/18 07:10 Dose: Not Given Albuterol/Ipratropium (Duoneb 3 Mg/0.5 Mg (3 Ml) Ud) 3 ml INH RQ4 [facility] Last Admin: 11/16/18 11:01 Dose: Not Given Amlodipine Besylate (Norvasc) 5 mg PO DAILY [facility] Last Admin: 11/16/18 09:47 Dose: 5 mg Arformoterol Tartrate (Brovana) 15 mcg INH RQ12@1000,2200 [facility] Last Admin: 11/16/18 09:06 Dose: 15 mcg Calcitriol (Rocaltrol) 0.25 mcg PO DAILY [facility] Last Admin: 11/16/18 09:47 Dose: 0.25 mcg Dextrose (Dextrose 50% Inj) 0 ml IV STAT PRN; Protocol PRN Reason: Hypoglycemia Protocol Dextrose (Glutose 15) 0 gm PO ONCE PRN; Protocol PRN Reason: Hypoglycemia Protocol Epoetin Justino (Procrit) 10,000 unit IV TTS [facility] Famotidine (Pepcid) 20 mg PO DAILY PRN PRN Reason: Heartburn Last Admin: 11/16/18 09:47 Dose: 20 mg Finasteride (Proscar) 5 mg PO DAILY [facility] Last Admin: 11/16/18 09:47 Dose: 5 mg Folic Acid (Folic Acid) 1 mg PO DAILY [facility] Last Admin: 11/16/18 09:47 Dose: 1 mg Glimepiride (Amaryl) 1 mg PO ACB [facility] Last Admin: 11/16/18 08:00 Dose: 1 mg Glucagon (Glucagen Diagnostic Kit) 0 mg IM STAT PRN; Protocol PRN Reason: Hypoglycemia Protocol Heparin Sodium (Porcine) (Heparin) 5,000 units SC Q8 [facility] Last Admin: 11/16/18 14:01 Dose: 5,000 units Dextrose (Dextrose 5% In Water 1000 Ml) 1,000 mls @ 0 mls/hr IV .Q0M PRN; Protocol PRN Reason: Hypoglycemia Protocol Piperacillin Sod/Tazobactam Sod (Zosyn 2.25 Gm Iv Premix) 2.25 gm in 50 mls @ 100 mls/hr IVPB Q8H [facility]; Protocol Last Admin: 11/16/18 14:02 Dose: 100 mls/hr Insulin Human Regular (Novolin R) 0 unit SC ACHS [facility]; Protocol Last Admin: 11/16/18 12:12 Dose: 2 units Methylprednisolone (Solu-Medrol) 20 mg IVP BID [facility] Last Admin: 11/16/18 09:49 Dose: 20 mg Rosuvastatin Calcium (Crestor) 5 mg PO HS [facility] Last Admin: 11/15/18 22:12 Dose: 5 mg - Labs Labs: 11/16/18 07:03 11/16/18 07:03 PT 12.6 SECONDS (9.7-12.2) H 11/14/18 17:52 INR 1.2 11/14/18 17:52 APTT 33.5 SECONDS (21-34) 11/14/18 17:52 - Head Exam Head Exam: ATRAUMATIC, NORMOCEPHALIC - ENT Exam ENT Exam: Mucous Membranes Moist - Neck Exam Neck Exam: Normal Inspection - Respiratory Exam Respiratory Exam: Decreased Breath Sounds - Cardiovascular Exam Cardiovascular Exam: REGULAR RHYTHM - GI/Abdominal Exam GI & Abdominal Exam: Soft, Normal Bowel Sounds (Patient) - Extremities Exam Extremities Exam: Normal Inspection - Neurological Exam Neurological Exam: Awake Assessment and Plan (1) Bronchiectasis Assessment & Plan: Switch to p.o. antibiotics Continue nebulizer treatment and mucolytic's Status: Acute (2) COPD (chronic obstructive pulmonary disease) Status: Acute (3) ESRD needing dialysis Status: Acute
[2018-11-17] MEDS: Acetylcysteine 20% Inhal Soln (4ml) INH SCH ×2 (03:20→07:09)
[2018-11-17] MEDS: Albuterol-Ipratrop 3 mg / 0.5 (3 ml) UD INH SCH ×4 (03:21→15:51)
[2018-11-17] MEDS: Piperacill/Tazo 2.25gm in Dex 2.25 GM/50 ML BAG IVPB SCH ×2 (05:38→13:31)
[2018-11-17 06:45] LABS: BASO % 0.1 % (0.0-2.0); HEMOGLOBIN 10.1 g/dL (12.0-18.0); LYMPH # 0.3 K/uL (1.0-4.3); LYMPH % 4.6 % (20.0-40.0); MEAN CORPUSCULAR HEMOGLOBIN 32.9 pg (27.0-31.0); MEAN CORPUSCULAR HGB CONC 33.5 g/dL (33.0-37.0); MEAN PLATELET VOLUME 7.6 fL (7.2-11.7); MONO # 0.3 K/uL (0.0-0.8); MONO % 5.8 % (0.0-10.0); NEUT # 5.1 K/uL (1.8-7.0); NEUT % 89.5 % (50.0-75.0); NRBC % 0.1 % (0.0-2.0); PLATELET COUNT 242 K/uL (130-400); RBC 3.07 Mil/uL (4.40-5.90); RED CELL DISTRIBUTION WIDTH 15.6 % (11.5-14.5); WHITE BLOOD COUNT 5.7 K/uL (4.8-10.8)
[2018-11-17 06:58] LABS: ALB/GLOB RATIO 1.2 (1.0-2.1); ALBUMIN 3.4 g/dL (3.5-5.0); CALCIUM 8.3 mg/dl (8.6-10.4)
[2018-11-17 08:20] LABS: BANDS 3 % (0-2); LYMPHOCYTE 4 % (20-40); MONOCYTE 4 % (0-10); NEUTROPHIL 89 % (50-75); PLATELET ESTIMATE NORMAL (NORMAL); TOTAL CELLS COUNTED 100
[2018-11-17 08:21] LABS: ANISOCYTOSIS SLIGHT; OVALOCYTES SLIGHT
[2018-11-17] MEDS: (Novolin R) Insulin Human Regular 100 units/ml vial SC SCH ×3 (08:25→17:01)
[2018-11-17] MEDS: Arformoterol 15 mcg/2 ml Inh Sol INH SCH (09:10)
[2018-11-17] MEDS ORDERED: Epoetin Alfa 10,000 unit/ml Dialysis IV SCH (10:00)
--- NOTE | 2018-11-17 10:11 | CP.PCM.PN ---
Subjective - Date & Time of Evaluation Date of Evaluation: 11/17/18 Time of Evaluation: 10:08 - Subjective Subjective: seen at dialysis still with cough, dyspnea afebrile course; stable HD- UF 2300ml no n, v, f, chills, HAs Objective - Vital Signs/Intake and Output Vital Signs (last 24 hours): Temp Pulse Resp BP Pulse Ox 97.5 F L 76 18 122/62 99 11/17/18 07:00 11/17/18 07:00 11/17/18 07:00 11/17/18 07:00 11/17/18 07:00 - Medications Medications: Current Medications Acetaminophen (Tylenol 325mg Tab) 650 mg PO Q6 PRN PRN Reason: Fever >100.4 F Acetylcysteine (Acetylcysteine 20%) 4 ml INH RQ6 [facility] Last Admin: 11/17/18 07:09 Dose: Not Given Albuterol/Ipratropium (Duoneb 3 Mg/0.5 Mg (3 Ml) Ud) 3 ml INH RQ4 [facility] Last Admin: 11/17/18 07:18 Dose: 3 ml Amlodipine Besylate (Norvasc) 5 mg PO DAILY [facility] Last Admin: 11/16/18 09:47 Dose: 5 mg Arformoterol Tartrate (Brovana) 15 mcg INH RQ12@1000,2200 [facility] Last Admin: 11/17/18 09:10 Dose: Not Given Calcitriol (Rocaltrol) 0.25 mcg PO DAILY [facility] Last Admin: 11/16/18 09:47 Dose: 0.25 mcg Dextrose (Dextrose 50% Inj) 0 ml IV STAT PRN; Protocol PRN Reason: Hypoglycemia Protocol Dextrose (Glutose 15) 0 gm PO ONCE PRN; Protocol PRN Reason: Hypoglycemia Protocol Epoetin Justino (Procrit) 10,000 unit IV TTS [facility] Famotidine (Pepcid) 20 mg PO DAILY PRN PRN Reason: Heartburn Last Admin: 11/16/18 09:47 Dose: 20 mg Finasteride (Proscar) 5 mg PO DAILY [facility] Last Admin: 11/16/18 09:47 Dose: 5 mg Folic Acid (Folic Acid) 1 mg PO DAILY [facility] Last Admin: 11/16/18 09:47 Dose: 1 mg Glimepiride (Amaryl) 1 mg PO ACB [facility] Last Admin: 11/17/18 08:39 Dose: Not Given Glucagon (Glucagen Diagnostic Kit) 0 mg IM STAT PRN; Protocol PRN Reason: Hypoglycemia Protocol Heparin Sodium (Porcine) (Heparin) 5,000 units SC Q8 [facility] Last Admin: 11/17/18 05:39 Dose: 5,000 units Dextrose (Dextrose 5% In Water 1000 Ml) 1,000 mls @ 0 mls/hr IV .Q0M PRN; Protocol PRN Reason: Hypoglycemia Protocol Piperacillin Sod/Tazobactam Sod (Zosyn 2.25 Gm Iv Premix) 2.25 gm in 50 mls @ 100 mls/hr IVPB Q8H [facility]; Protocol Last Admin: 11/17/18 05:38 Dose: 100 mls/hr Insulin Human Regular (Novolin R) 0 unit SC ACHS [facility]; Protocol Last Admin: 11/17/18 08:25 Dose: 2 units Methylprednisolone (Solu-Medrol) 20 mg IVP BID [facility] Last Admin: 11/16/18 17:59 Dose: 20 mg Rosuvastatin Calcium (Crestor) 5 mg PO HS [facility] Last Admin: 11/16/18 21:39 Dose: 5 mg - Labs Labs: 11/17/18 06:31 11/17/18 06:31 PT 12.6 SECONDS (9.7-12.2) H 11/14/18 17:52 INR 1.2 11/14/18 17:52 APTT 33.5 SECONDS (21-34) 11/14/18 17:52 - Constitutional Appears: No Acute Distress, Cachectic, Chronically Ill - Head Exam Head Exam: ATRAUMATIC, NORMAL INSPECTION - Eye Exam Eye Exam: EOMI, Normal appearance - Neck Exam Neck Exam: Normal Inspection. absent: Tenderness - Respiratory Exam Respiratory Exam: Rhonchi, Respiratory Distress - Cardiovascular Exam Cardiovascular Exam: REGULAR RHYTHM, +S1 - GI/Abdominal Exam GI & Abdominal Exam: Soft. absent: Tenderness - Extremities Exam Extremities Exam: Normal Inspection. absent: Tenderness - Neurological Exam Neurological Exam: Awake, CN II-XII Intact - Skin Skin Exam: Dry, Warm Assessment and Plan - Assessment and Plan (Free Text) Assessment: COPD exacerbation, broncheictasis possible pneumonia ESRD CHF Plan: increase UF goal recheck labs pulmonary bx
--- NOTE | 2018-11-17 10:16 | CP.PCM.DIS ---
<Yonathan Thompson - Last Filed: 11/17/18 13:59> Provider - Provider Date of Admission: 11/14/18 19:21 Attending physician: Jennie Vazquez MD Consults: 11/14/18 20:36 Nephrology Consult Routine Comment: Consulting Provider: Greg Dutton Consulting Physician: Greg Dutton Reason for Consult: HD MWF Pulmonology Consult Routine Comment: Consulting Provider: Geovani Pots Consulting Physician: Geovani Post Reason for Consult: COPD, HCAP 11/15/18 14:26 Pulmonology Consult Routine Comment: Consulting Provider: Geovani Post Consulting Physician: Geovani Post Reason for Consult: PNA, COPD Time Spent in preparation of Discharge (in minutes): 45 Diagnosis - Discharge Diagnosis (1) Bronchiectasis Status: Acute (2) Pneumonia Status: Acute Hospital Course - Lab Results Lab Results: Micro Results 11/14/18 19:39 Blood-Venous Blood Culture - Preliminary NO GROWTH AFTER 48 HOURS 11/14/18 17:45 Blood-Venous Blood Culture - Preliminary NO GROWTH AFTER 48 HOURS 11/15/18 14:45 Sputum Gram Stain - Final Most Recent Lab Values WBC 5.7 K/uL (4.8-10.8) 11/17/18 06:31 RBC 3.07 Mil/uL (4.40-5.90) L 11/17/18 06:31 Hgb 10.1 g/dL (12.0-18.0) L 11/17/18 06:31 Hct 30.1 % (35.0-51.0) L 11/17/18 06:31 MCV 98.0 fL (80.0-94.0) H 11/17/18 06:31 MCH 32.9 pg (27.0-31.0) H 11/17/18 06:31 MCHC 33.5 g/dL (33.0-37.0) 11/17/18 06:31 RDW 15.6 % (11.5-14.5) H 11/17/18 06:31 Plt Count 242 K/uL (130-400) 11/17/18 06:31 MPV 7.6 fL (7.2-11.7) 11/17/18 06:31 Neut % (Auto) 89.5 % (50.0-75.0) H 11/17/18 06:31 Lymph % (Auto) 4.6 % (20.0-40.0) L 11/17/18 06:31 Bryan % (Auto) 5.8 % (0.0-10.0) 11/17/18 06:31 Eos % (Auto) 0.0 % (0.0-4.0) 11/17/18 06:31 Baso % (Auto) 0.1 % (0.0-2.0) 11/17/18 06:31 Neut # (Auto) 5.1 K/uL (1.8-7.0) 11/17/18 06:31 Lymph # (Auto) 0.3 K/uL (1.0-4.3) L 11/17/18 06:31 Bryan # (Auto) 0.3 K/uL (0.0-0.8) 11/17/18 06:31 Eos # (Auto) 0.0 K/uL (0.0-0.7) 11/17/18 06:31 Baso # (Auto) 0.0 K/uL (0.0-0.2) 11/17/18 06:31 Neutrophils % (Manual) 89 % (50-75) H 11/17/18 06:31 Band Neutrophils % 3 % (0-2) H 11/17/18 06:31 Lymphocytes % (Manual) 4 % (20-40) L 11/17/18 06:31 Reactive Lymphs % 1 % (0-0) H 11/16/18 07:03 Monocytes % (Manual) 4 % (0-10) 11/17/18 06:31 Metamyelocytes % 1 % (0-0) H 11/15/18 06:46 Myelocytes % 2 % (0-0) H 11/15/18 06:46 Nucleated RBC % 61 % (0-0) H 11/15/18 06:46 Platelet Estimate Normal (NORMAL) 11/17/18 06:31 Large Platelets Present 11/16/18 07:03 Giant Platelets Present 11/15/18 06:46 Hypochromasia (manual) Slight 11/16/18 07:03 Poikilocytosis (manual Slight 11/16/18 07:03 Anisocytosis (manual) Slight 11/17/18 06:31 Target Cells Slight 11/16/18 07:03 Tear Drop Cells Slight 11/15/18 06:46 Ovalocytes Slight 11/17/18 06:31 Acanthocytes (Spur) Slight 11/15/18 06:46 PT 12.6 SECONDS (9.7-12.2) H 11/14/18 17:52 INR 1.2 11/14/18 17:52 APTT 33.5 SECONDS (21-34) 11/14/18 17:52 pO2 32 mm/Hg (30-55) 11/14/18 18:03 VBG pH 7.37 (7.32-7.43) 11/14/18 18:03 VBG pCO2 41 mmHg (40-60) 11/14/18 18:03 VBG HCO3 22.7 mmol/L 11/14/18 18:03 VBG Total CO2 25.0 mmol/L (22-28) 11/14/18 18:03 VBG O2 Sat (Calc) 54.9 % (40-65) 11/14/18 18:03 VBG Base Excess -1.5 mmol/L (0.0-2.0) L 11/14/18 18:03 VBG Potassium 4.7 mmol/L (3.6-5.2) 11/14/18 18:03 Sodium 139.0 mmol/l (132-148) 11/14/18 18:03 Chloride 107.0 mmol/L (98-107) 11/14/18 18:03 Glucose 43 mg/dl (75-110) L 11/14/18 18:03 Lactate 0.8 mmol/L (0.7-2.1) 11/14/18 18:03 Sodium 134 mmol/L (132-148) 11/17/18 06:31 Potassium 4.6 mmol/L (3.6-5.2) 11/17/18 06:31 Chloride 96 mmol/L (98-107) L 11/17/18 06:31 Carbon Dioxide 24 mmol/L (22-30) 11/17/18 06:31 Anion Gap 19 (10-20) 11/17/18 06:31 BUN 64 mg/dL (9-20) H 11/17/18 06:31 Creatinine 4.4 mg/dL (0.8-1.5) H 11/17/18 06:31 Est GFR ( Amer) 16 11/17/18 06:31 Est GFR (Non-Af Amer) 13 11/17/18 06:31 POC Glucose (mg/dL) 224 mg/dL (65-110) H 11/17/18 05:55 Random Glucose 193 mg/dL (75-110) H D 11/17/18 06:31 Hemoglobin A1c 6.2 % (4.2-6.5) 11/15/18 09:32 Calcium 8.3 mg/dl (8.6-10.4) L 11/17/18 06:31 Phosphorus 5.2 mg/dL (2.5-4.5) H 11/17/18 06:31 Magnesium 1.9 mg/dL (1.6-2.3) 11/17/18 06:31 Total Bilirubin 0.3 mg/dL (0.2-1.3) 11/17/18 06:31 AST 20 U/L (17-59) 11/17/18 06:31 ALT 9 U/L (21-72) L 11/17/18 06:31 Alkaline Phosphatase 66 U/L (38-126) 11/17/18 06:31 Troponin I 0.0220 ng/mL (0.00-0.120) 11/14/18 17:52 Total Protein 6.1 g/dL (6.3-8.3) L 11/17/18 06:31 Albumin 3.4 g/dL (3.5-5.0) L 11/17/18 06:31 Globulin 2.7 gm/dL (2.2-3.9) 11/17/18 06:31 Albumin/Globulin Ratio 1.2 (1.0-2.1) 11/17/18 06:31 Lipase 52 U/L (23-300) 11/14/18 17:52 Venous Blood Potassium 4.7 mmol/L (3.6-5.2) 11/14/18 18:03 Urine Color Yellow (YELLOW) 11/15/18 13:41 Urine Clarity Clear (Clear) 11/15/18 13:41 Urine pH 6.0 (5.0-8.0) 11/15/18 13:41 Ur Specific [place] 1.016 (1.003-1.030) 11/15/18 13:41 Urine Protein 3+ mg/dL (NEGATIVE) H 11/15/18 13:41 Urine Glucose (UA) 3+ mg/dL (Normal) H 11/15/18 13:41 Urine Ketones Negative mg/dL (NEGATIVE) 11/15/18 13:41 Urine Blood Negative (NEGATIVE) 11/15/18 13:41 Urine Nitrate Negative (NEGATIVE) 11/15/18 13:41 Urine Bilirubin Negative (NEGATIVE) 11/15/18 13:41 Urine Urobilinogen Normal mg/dL (0.2-1.0) 11/15/18 13:41 Ur Leukocyte Esterase Neg Charmaine/uL (Negative) 11/15/18 13:41 Urine WBC (Auto) 1 /hpf (0-5) 11/15/18 13:41 Urine RBC (Auto) 1 /hpf (0-3) 11/15/18 13:41 Ur Squamous Epith Cells < 1 /hpf (0-5) 11/15/18 13:41 Random Vancomycin 11.2 ug/mL 11/15/18 09:34 Blood Type O POSITIVE 11/15/18 06:46 Antibody Screen Negative 11/15/18 06:46 - Hospital Course Hospital Course: HPI 83M past medical history of HTN, HLD, DM, ESRD on HD (MWF), COPD, and chronic anemia presenting to ED for one week of shortness of breath. Last night he reported fevers, chills and sweating, took tylenol but then the fevers did not resolve this AM, prompting him to come in. Pt says he's had a dry cough associated with this recent illness. Patient says hes been feeling worse over the past week. Denies taking any antibiotics or seeking medical attention for this current illness. As per daughter, Pt has been more fatigued than usual and has been exceptionally lethargic after HD sessions. His last HD session was Wednesday. Last follow up appt was with Dr Dutton about 2 weeks ago. Hospital Course Patient was hospitalized due to shortness of breath, with multiple contributing factors including ESRD with worsening b/l effusions on initial CXR, bronchiectasis, and lower lobe PNA. Nephro (Dr. Dutton) and pulm (Dr. Post) were consulted. Patient went for HD with ultrafiltration the following morning after being admitted overnight. Patient was started on vanco and zosyn on admission (11/14), renally-dosed. Per pulm recs, Vanco d/c'd and Zosyn continued, and patient started on IV steroids, which were tapered. Patient showed gradual improvement and was cleared by nephro and pulm for discharge on PO abx and PO steroid taper. Imaging CXR 11/15: Persistent bibasilar patchy airspace opacities-bibasilar patchy infiltrates with or without concomitant discoid atelectasis and/or scarring is inferred. Trace partial improved aeration at the right lung base probable. Significant residual persists at both lung bases. Continued follow-up recommended to ensure more complete resolution and clearing here. ICT abd/pelvis 11/14: Interval worsening of airspace consolidation in the right middle and right lower lobe since the previous exam. The possibility of pneumonia or aspiration should be considered. Airspace consolidation at the left lower lobe is also noted. Small bilateral nonobstructing renal calculi. No evidence of hydronephrosis. Gallstones without evidence of acute cholecystitis. No significant interval change in the abdomen and pelvis noted since the previous exam. Persistent bibasilar patchy airspace opacities-bibasilar patchy infiltrates with or without concomitant discoid atelectasis and/or scarring is inferred. Trace partial improved aeration at the right lung base probable. Significant residual persists at both lung bases. Continued follow-up recommended to ensure more complete resolution and clearing here. CXR 11/14: Worsening bibasilar consolidation and effusions. Post treatment interval follow-up is recommended to ensure resolution and exclude underlying lesion. Discharge Exam - Head Exam Head Exam: ATRAUMATIC, NORMOCEPHALIC - Eye Exam Eye Exam: EOMI, Normal appearance - Respiratory Exam Respiratory Exam: Clear to PA & Lateral, UNREMARKABLE. absent: Rales, Wheezes - Cardiovascular Exam Cardiovascular Exam: REGULAR RHYTHM, +S1, +S2 - GI/Abdominal Exam GI & Abdominal Exam: Normal Bowel Sounds, Soft. absent: Tenderness - Extremities Exam Extremities exam: normal inspection - Neurological Exam Neurological exam: Alert, CN II-XII Intact, Oriented x3 - Psychiatric Exam Psychiatric exam: Normal Affect, Normal Mood - Skin Skin Exam: Dry, Intact Discharge Plan - Discharge Medications Prescriptions: Levofloxacin [Levaquin] 500 mg PO DAILY #5 tablet Methylprednisolone [Medrol Dose Pack (21 tabs)] See Taper PO DAILY #21 mg - Follow Up Plan Condition: FAIR Disposition: HOME/ ROUTINE Instructions: Levofloxacin (Systemic), Pneumonia, Adult (DC), Exacerbation of COPD (DC), Methylprednisolone, End Stage Kidney Disease (DC), Dialysis and Diet Additional Instructions: Patient is cleared for discharge per primary team. Please continue to take all of your home medications as prescribed. Please also continue to take the following new medications. Prescriptions have been provided. -Levaquin 500mg one tab by mouth daily at 8am for 5 days -Medrol dose pack (see dose instructions) Please continue to follow with your twister hand, Dr. Dutton, for CKD management and dialysis. Please make sure to follow up with your machine room engineer, Dr. Cruz. Please make sure to follow up with your primary care doctor, Dr. Nakul Miranda, within 7-1o days of discharge. Please return to ER if symptoms recur or worsen. <Sabino Dias - Last Filed: 11/17/18 19:04> Provider - Provider Date of Admission: 11/14/18 19:21 Attending physician: Jennie Vazquez MD Consults: 11/14/18 20:36 Nephrology Consult Routine Comment: Consulting Provider: Greg Dutton Consulting Physician: Greg Dutton Reason for Consult: HD MWF Pulmonology Consult Routine Comment: Consulting Provider: Geovani Post Consulting Physician: Geovani Post Reason for Consult: COPD, HCAP 11/15/18 14:26 Pulmonology Consult Routine Comment: Consulting Provider: Geovani Post Consulting Physician: Geovani Post Reason for Consult: PNA, COPD Hospital Course - Lab Results Lab Results: Micro Results 11/14/18 19:39 Blood-Venous Blood Culture - Preliminary NO GROWTH AFTER 48 HOURS 11/14/18 17:45 Blood-Venous Blood Culture - Preliminary NO GROWTH AFTER 48 HOURS 11/15/18 14:45 Sputum Gram Stain - Final Most Recent Lab Values WBC 5.7 K/uL (4.8-10.8) 11/17/18 06:31 RBC 3.07 Mil/uL (4.40-5.90) L 11/17/18 06:31 Hgb 10.1 g/dL (12.0-18.0) L 11/17/18 06:31 Hct 30.1 % (35.0-51.0) L 11/17/18 06:31 MCV 98.0 fL (80.0-94.0) H 11/17/18 06:31 MCH 32.9 pg (27.0-31.0) H 11/17/18 06:31 MCHC 33.5 g/dL (33.0-37.0) 11/17/18 06:31 RDW 15.6 % (11.5-14.5) H 11/17/18 06:31 Plt Count 242 K/uL (130-400) 11/17/18 06:31 MPV 7.6 fL (7.2-11.7) 11/17/18 06:31 Neut % (Auto) 89.5 % (50.0-75.0) H 11/17/18 06:31 Lymph % (Auto) 4.6 % (20.0-40.0) L 11/17/18 06:31 Bryan % (Auto) 5.8 % (0.0-10.0) 11/17/18 06:31 Eos % (Auto) 0.0 % (0.0-4.0) 11/17/18 06:31 Baso % (Auto) 0.1 % (0.0-2.0) 11/17/18 06:31 Neut # (Auto) 5.1 K/uL (1.8-7.0) 11/17/18 06:31 Lymph # (Auto) 0.3 K/uL (1.0-4.3) L 11/17/18 06:31 Bryan # (Auto) 0.3 K/uL (0.0-0.8) 11/17/18 06:31 Eos # (Auto) 0.0 K/uL (0.0-0.7) 11/17/18 06:31 Baso # (Auto) 0.0 K/uL (0.0-0.2) 11/17/18 06:31 Neutrophils % (Manual) 89 % (50-75) H 11/17/18 06:31 Band Neutrophils % 3 % (0-2) H 11/17/18 06:31 Lymphocytes % (Manual) 4 % (20-40) L 11/17/18 06:31 Reactive Lymphs % 1 % (0-0) H 11/16/18 07:03 Monocytes % (Manual) 4 % (0-10) 11/17/18 06:31 Metamyelocytes % 1 % (0-0) H 11/15/18 06:46 Myelocytes % 2 % (0-0) H 11/15/18 06:46 Nucleated RBC % 61 % (0-0) H 11/15/18 06:46 Platelet Estimate Normal (NORMAL) 11/17/18 06:31 Large Platelets Present 11/16/18 07:03 Giant Platelets Present 11/15/18 06:46 Hypochromasia (manual) Slight 11/16/18 07:03 Poikilocytosis (manual Slight 11/16/18 07:03 Anisocytosis (manual) Slight 11/17/18 06:31 Target Cells Slight 11/16/18 07:03 Tear Drop Cells Slight 11/15/18 06:46 Ovalocytes Slight 11/17/18 06:31 Acanthocytes (Spur) Slight 11/15/18 06:46 PT 12.6 SECONDS (9.7-12.2) H 11/14/18 17:52 INR 1.2 11/14/18 17:52 APTT 33.5 SECONDS (21-34) 11/14/18 17:52 pO2 32 mm/Hg (30-55) 11/14/18 18:03 VBG pH 7.37 (7.32-7.43) 11/14/18 18:03 VBG pCO2 41 mmHg (40-60) 11/14/18 18:03 VBG HCO3 22.7 mmol/L 11/14/18 18:03 VBG Total CO2 25.0 mmol/L (22-28) 11/14/18 18:03 VBG O2 Sat (Calc) 54.9 % (40-65) 11/14/18 18:03 VBG Base Excess -1.5 mmol/L (0.0-2.0) L 11/14/18 18:03 VBG Potassium 4.7 mmol/L (3.6-5.2) 11/14/18 18:03 Sodium 139.0 mmol/l (132-148) 11/14/18 18:03 Chloride 107.0 mmol/L (98-107) 11/14/18 18:03 Glucose 43 mg/dl (75-110) L 11/14/18 18:03 Lactate 0.8 mmol/L (0.7-2.1) 11/14/18 18:03 Sodium 134 mmol/L (132-148) 11/17/18 06:31 Potassium 4.6 mmol/L (3.6-5.2) 11/17/18 06:31 Chloride 96 mmol/L (98-107) L 11/17/18 06:31 Carbon Dioxide 24 mmol/L (22-30) 11/17/18 06:31 Anion Gap 19 (10-20) 11/17/18 06:31 BUN 64 mg/dL (9-20) H 11/17/18 06:31 Creatinine 4.4 mg/dL (0.8-1.5) H 11/17/18 06:31 Est GFR ( Amer) 16 11/17/18 06:31 Est GFR (Non-Af Amer) 13 11/17/18 06:31 POC Glucose (mg/dL) 133 mg/dL (65-110) H 11/17/18 16:21 Random Glucose 193 mg/dL (75-110) H D 11/17/18 06:31 Hemoglobin A1c 6.2 % (4.2-6.5) 11/15/18 09:32 Calcium 8.3 mg/dl (8.6-10.4) L 11/17/18 06:31 Phosphorus 5.2 mg/dL (2.5-4.5) H 11/17/18 06:31 Magnesium 1.9 mg/dL (1.6-2.3) 11/17/18 06:31 Total Bilirubin 0.3 mg/dL (0.2-1.3) 11/17/18 06:31 AST 20 U/L (17-59) 11/17/18 06:31 ALT 9 U/L (21-72) L 11/17/18 06:31 Alkaline Phosphatase 66 U/L (38-126) 11/17/18 06:31 Troponin I 0.0220 ng/mL (0.00-0.120) 11/14/18 17:52 Total Protein 6.1 g/dL (6.3-8.3) L 11/17/18 06:31 Albumin 3.4 g/dL (3.5-5.0) L 11/17/18 06:31 Globulin 2.7 gm/dL (2.2-3.9) 11/17/18 06:31 Albumin/Globulin Ratio 1.2 (1.0-2.1) 11/17/18 06:31 Lipase 52 U/L (23-300) 11/14/18 17:52 Venous Blood Potassium 4.7 mmol/L (3.6-5.2) 11/14/18 18:03 Urine Color Yellow (YELLOW) 11/15/18 13:41 Urine Clarity Clear (Clear) 11/15/18 13:41 Urine pH 6.0 (5.0-8.0) 11/15/18 13:41 Ur Specific [place] 1.016 (1.003-1.030) 11/15/18 13:41 Urine Protein 3+ mg/dL (NEGATIVE) H 11/15/18 13:41 Urine Glucose (UA) 3+ mg/dL (Normal) H 11/15/18 13:41 Urine Ketones Negative mg/dL (NEGATIVE) 11/15/18 13:41 Urine Blood Negative (NEGATIVE) 11/15/18 13:41 Urine Nitrate Negative (NEGATIVE) 11/15/18 13:41 Urine Bilirubin Negative (NEGATIVE) 11/15/18 13:41 Urine Urobilinogen Normal mg/dL (0.2-1.0) 11/15/18 13:41 Ur Leukocyte Esterase Neg [place]/uL (Negative) 11/15/18 13:41 Urine WBC (Auto) 1 /hpf (0-5) 11/15/18 13:41 Urine RBC (Auto) 1 /hpf (0-3) 11/15/18 13:41 Ur Squamous Epith Cells < 1 /hpf (0-5) 11/15/18 13:41 Random Vancomycin 11.2 ug/mL 11/15/18 09:34 Blood Type O POSITIVE 11/15/18 06:46 Antibody Screen Negative 11/15/18 06:46 Attending/Attestation - Attestation I have personally seen and examined this patient.: Yes I have fully participated in the care of the patient.: Yes I have reviewed all pertinent clinical information, including history, physical exam and plan: Yes Notes (Text): Seen and examined. patient is stable for discharge d/w Dr Sincere we will d/c on levaquin to cover Pseudomonus /respiratory tract infection
[2018-11-17] MEDS: MethylPREDNISolone 40 mg Vial IVP SCH ×2 (13:19→17:00)
[2018-11-17 15:53] VITALS: BP 120/56; PULSE 86; RESP 20; TEMP 98.6; O2SAT 98
--- NOTE | 2018-11-17 17:13 | CP.PCM.PN ---
Subjective - Date & Time of Evaluation Date of Evaluation: 11/17/18 Time of Evaluation: 11:00 - Subjective Subjective: Patient seen and examined Still complaining of cough Breathing better Seen during hemodialysis Afebrile Okay to discharge home Follow-up in the office Objective - Vital Signs/Intake and Output Vital Signs (last 24 hours): Temp Pulse Resp BP Pulse Ox 98.6 F 86 20 120/56 L 98 11/17/18 15:52 11/17/18 15:52 11/17/18 15:52 11/17/18 15:52 11/17/18 15:52 - Medications Medications: Current Medications Acetaminophen (Tylenol 325mg Tab) 650 mg PO Q6 PRN PRN Reason: Fever >100.4 F Acetylcysteine (Acetylcysteine 20%) 4 ml INH RQ6 [facility], [facility]1983 Last Admin: 11/17/18 07:09 Dose: Not Given Albuterol/Ipratropium (Duoneb 3 Mg/0.5 Mg (3 Ml) Ud) 3 ml INH RQ4 [facility], [facility]1983 Last Admin: 11/17/18 15:51 Dose: 3 ml Amlodipine Besylate (Norvasc) 5 mg PO DAILY [facility], [facility]1983 Last Admin: 11/17/18 13:31 Dose: 5 mg Arformoterol Tartrate (Brovana) 15 mcg INH RQ12@1000,2200 [facility], [facility]1983 Last Admin: 11/17/18 09:10 Dose: Not Given Calcitriol (Rocaltrol) 0.25 mcg PO DAILY [facility], [facility] Last Admin: 11/17/18 13:32 Dose: 0.25 mcg Dextrose (Dextrose 50% Inj) 0 ml IV STAT PRN; Protocol PRN Reason: Hypoglycemia Protocol Dextrose (Glutose 15) 0 gm PO ONCE PRN; Protocol PRN Reason: Hypoglycemia Protocol Epoetin Justino (Procrit) 10,000 unit IV TTS [facility], [facility] Last Admin: 11/17/18 11:04 Dose: 10,000 unit Famotidine (Pepcid) 20 mg PO DAILY PRN PRN Reason: Heartburn Last Admin: 11/16/18 09:47 Dose: 20 mg Finasteride (Proscar) 5 mg PO DAILY [facility] Last Admin: 11/17/18 13:31 Dose: 5 mg Folic Acid (Folic Acid) 1 mg PO DAILY [facility] Last Admin: 11/17/18 13:32 Dose: 1 mg Glimepiride (Amaryl) 1 mg PO ACB [facility] Last Admin: 11/17/18 08:39 Dose: Not Given Glucagon (Glucagen Diagnostic Kit) 0 mg IM STAT PRN; Protocol PRN Reason: Hypoglycemia Protocol Heparin Sodium (Porcine) (Heparin) 5,000 units SC Q8 ALFREDO Last Admin: 11/17/18 13:27 Dose: Not Given Heparin Sodium (Porcine) (Heparin (For Dialysis)) 3,700 units IVP TTS ALFREDO Stop: 11/25/18 23:00 Last Admin: 11/17/18 11:38 Dose: 3,700 units Dextrose (Dextrose 5% In Water 1000 Ml) 1,000 mls @ 0 mls/hr IV .Q0M PRN; Protocol PRN Reason: Hypoglycemia Protocol Piperacillin Sod/Tazobactam Sod (Zosyn 2.25 Gm Iv Premix) 2.25 gm in 50 mls @ 100 mls/hr IVPB Q8H ALFREDO; Protocol Last Admin: 11/17/18 13:31 Dose: 100 mls/hr Insulin Human Regular (Novolin R) 0 unit SC ACHS ALFREDO; Protocol Last Admin: 11/17/18 17:01 Dose: Not Given Methylprednisolone (Solu-Medrol) 20 mg IVP BID ALFREDO Last Admin: 11/17/18 17:00 Dose: 20 mg Rosuvastatin Calcium (Crestor) 5 mg PO HS ALFREDO Last Admin: 11/16/18 21:39 Dose: 5 mg - Labs Labs: 11/17/18 06:31 11/17/18 06:31 PT 12.6 SECONDS (9.7-12.2) H 11/14/18 17:52 INR 1.2 11/14/18 17:52 APTT 33.5 SECONDS (21-34) 11/14/18 17:52 Assessment and Plan (1) Bronchiectasis Status: Acute (2) COPD (chronic obstructive pulmonary disease) Status: Acute (3) ESRD needing dialysis Status: Acute
== END 2018-11-17 18:22 | disposition home or self-care (01) | DRG 193 ==
LOC: C.ER 16:58 → C.9E 19:21 → C.6T 21:32
PROVIDERS: ADMIT Emergency Medicine; ATTEND Emergency Medicine
PROC: 5A1D70Z Performance of Urinary Filtration, Intermittent, Less than 6 Hours Per Day (ICD-10-PCS; principal; 2018-11-15)
PROC: 5A1D70Z Performance of Urinary Filtration, Intermittent, Less than 6 Hours Per Day (ICD-10-PCS; 2018-11-17)
DX: J18.9 Pneumonia, unspecified organism (principal); N18.6 End stage renal disease; J44.0 Chronic obstructive pulmonary disease with (acute) lower respiratory infection; I13.2 Hypertensive heart and chronic kidney disease with heart failure and with stage 5 chronic kidney disease, or end stage renal disease; J44.1 Chronic obstructive pulmonary disease with (acute) exacerbation; J47.0 Bronchiectasis with acute lower respiratory infection; J84.10 Pulmonary fibrosis, unspecified; E11.22 Type 2 diabetes mellitus with diabetic chronic kidney disease; E11.21 Type 2 diabetes mellitus with diabetic nephropathy; E78.5 Hyperlipidemia, unspecified; I50.9 Heart failure, unspecified; K80.20 Calculus of gallbladder without cholecystitis without obstruction; N20.0 Calculus of kidney; Z99.2 Dependence on renal dialysis; Z87.01 Personal history of pneumonia (recurrent); Z87.891 Personal history of nicotine dependence; Z91.14 Patient's other noncompliance with medication regimen